=== PATIENT | female | born 1980 | race Caucasian/White ===

== ENCOUNTER 2018-06-19 23:31 | Emergency (ER) | payer MEDICAID ==
[~2018-06-19] VITALS: Ht 152.4 cm; Wt 108.9 kg
[~2018-06-19 23:31] MED LIST: ADV1DS IH; ALBU8.5H2 IH; BSP10T PO; CIPR-17 PO; CIPR5DRO EACH EAR; DIAZ5TAB3 PO; DICY10CA26 PO; ESTR0.5T PO; ESTR2TAB PO; ETHO250C6 PO; FLUO40CA PO; FLUO60TA PO; MELO-195 PO; METH500T PO; OFLO5DRO7 EACH EAR; OFLO5DRO7 RIGHT EAR; OMEP20TA2 PO; OXYC-309 PO; POTA99TA15 PO; PROP20TA5 PO; SUCR1TAB PO; SUMA100T2 PO; TOPI100T PO; TPR100T PO; TPR25T PO
--- OUTSIDE RECORDS SUMMARY | 2018-06-19 23:42 | XMS REPORT | Encounter Summary ---
Author Author [facility] Organization [facility] Address Unknown Phone Unavailable Care Team Providers Care Manager Pet Name Role Phone Norris Chavez MD Unavailable Robin Concepcion MD PCP Gurinder Antunez MD Unavailable Dwayne Davidson MD Unavailable Reason for Referral * Test (Routine) Referred By Contact Referred To Contact Status Reason Specialty Diagnoses / Procedures Merry Tellez APRN-SHIPPING RECEIVING CLERK [address] [place] [address] Abran Hong MD [address] [place] [address] No Auth Needed Neurology Diagnoses Radicular pain of lumbosacral region Left leg pain P rocedures SPINE EMG PROCEDURE Reason for Visit * Reason Comments Procedure EMG * Test (Routine) Referred By Contact Referred To Contact Status Reason Specialty Diagnoses / Procedures Merry Tellez APRN-NP [address] [place] [id number] Abran Hong MD [address] [place] [address] No Auth Needed Neurology Diagnoses Radicular pain of lumbosacral region Left leg pain P rocedures SPINE EMG PROCEDURE Encounter Details Care Team Description [place] [address] [place] [address] [phone] Spondylosis of lumbosacral region without myelopathy or radiculopathy; Radicular pain of lumbosacral region; Left leg pain 05/02/2018 Clinical [facility] Neurology [facility] [address] [address] [place] [address] Social History Date Tobacco Use Types Packs/Day Years Used Current Every Day Smoker Cigarettes 1 10 Smokeless Tobacco: Never Used Alcohol Use Drinks/Week oz/Week Comments Yes less than once a month Sex Assigned at Date Recorded Not on file Industry Job Start Date Occupation Not on file Not on file Not on file Travel End Travel History Travel Start No recent travel history available. as of this encounter Last Filed Vital Signs Time Taken Vital Sign Reading 05/02/2018 9:53 AM OBSTETRICS TECHNICIAN Blood Pressure 138/98 05/02/2018 9:53 AM OBSTETRICS TECHNICIAN Pulse 110 - Temperature - - Respiratory Rate - 05/02/2018 9:53 AM OBSTETRICS TECHNICIAN Oxygen Saturation 100% - Inhaled Oxygen - Concentration - Weight - 05/02/2018 9:53 AM OBSTETRICS TECHNICIAN Height 152.4 cm (5') - Body Mass Index - in this encounter Functional Status Date of Assessment Functional Status Response 04/10/2018 Does the patient have a hearing impairment: No 04/10/2018 Does the patient have a visual impairment: No 04/10/2018 Does the patient have impaired ambulation: No 04/10/2018 Does the patient have an activity of daily living No (ADL) impairment: 04/10/2018 Does the patient have an instrumental activity of No daily living (IADL) impairment: Date of Assessment Cognitive Status Response 04/10/2018 Does the patient have a cognitive impairment: No as of this encounter Progress Notes * Gigi Whitfield - 05/02/2018 10:00 AM OBSTETRICS TECHNICIAN Electromyography performed, see scanned results. ETRICS TECHNICIAN in this encounter Miscellaneous Notes * Addendum Note - Gigi Whitfield - 05/02/2018 10:00 AM OBSTETRICS TECHNICIAN Addended by: GIGI WHITFIELD on: 05/02/2018 01:45 PM Modules accepted: Orders ETRICS TECHNICIAN in this encounter Plan of Treatment Not on fileas of this encounter Procedures Comments Procedure Name Priority Date/Time Associated Diagnosis SPINE EMG PROCEDURE Routine 05/02/2018 Radicular pain of lumbosacral region Left leg pain in this encounter Visit Diagnoses Diagnosis Spondylosis of lumbosacral region without myelopathy or radiculopathy Lumbosacral spondylosis without myelopathy Radicular pain of lumbosacral region Thoracic or lumbosacral neuritis or radiculitis, unspecified Left leg pain Pain in limb in this encounter
--- OUTSIDE RECORDS SUMMARY | 2018-06-19 23:42 | XMS REPORT | Encounter Summary ---
Author Author [facility] Organization [facility] Address Unknown Phone Unavailable Care Team Providers Care Post Doctoral Researcher Name Role Phone Norris Chavez MD Unavailable Robin Concepcion MD PCP Gurinder Antunez MD Unavailable Dwayne Davidson MD Unavailable Reason for Referral * Pain Authorization (Routine) Referred By Contact Referred To Contact Status Reason Specialty Diagnoses / Procedures Gurinder Antunez MD [address] [facility] [address] [place] [address] Ic1 Pain Procedure [address] [place] [address] Denied Anesthesia Pain Diagnoses Spondylosis of lumbosacral region without myelopathy or radiculopathy DDD (degenerative disc disease), lumbar Myalgia, other site P rocedures DESTRUCTION OF NERVE W/ FLUORO LUMBAR/SACRAL Reason for Visit * Reason Comments Pain Pain Pain Encounter Details Care Team Description Date Type Department Gurinder Antunez MD [address] [facility] [address] [place], [place] [id number] Spondylosis of lumbosacral region without myelopathy or radiculopathy (Primary Dx); DDD (degenerative disc disease), lumbar; Myalgia, other site 05/17/2018 Office Visit Spine Center An[facility] Pain Clinic Alfred Lucas MD [facility] [address] [place], [place] [id number] Social History Date Tobacco Use Types Packs/Day [...] Vital Signs Time Taken Vital Sign Reading 05/17/2018 10:46 AM LIVESTOCK HAULIER Blood Pressure 133/97 05/17/2018 10:46 AM LIVESTOCK HAULIER Pulse 109 05/17/2018 10:15 AM LIVESTOCK HAULIER Temperature 36.7 C (98 F) 05/17/2018 10:15 AM LIVESTOCK HAULIER Respiratory Rate 22 05/17/2018 10:15 AM LIVESTOCK HAULIER Oxygen Saturation 98% - Inhaled Oxygen - Concentration 05/17/2018 10:15 AM LIVESTOCK HAULIER Weight 95.3 kg (210 lb) 05/17/2018 10:15 AM LIVESTOCK HAULIER Height 152.4 cm (5') 05/17/2018 10:15 AM LIVESTOCK HAULIER Body Mass Index 41.01 in this encounter Functional Status Date of [...] as of this encounter Progress Notes * Sayed, MD Gurinder - 05/17/2018 10:00 AM L[facility]STOCK [facility] CLINIC NOTE Subjective SUBJECTIVE: Jazzy Lopez presents for follow up of low back and leg pain Pain is in the low back with radiation to the left leg Had been isolated to left low back but now also on the right side She says the only thing that improves the pain is being put to sleep for surgery She does feel RFA has helped in the past Activity and movement make the pain worse She does not feel the amitriptyline is helping with either pain or sleep Review of Systems All other systems reviewed and are negative. Current Outpatient Medications: amitriptyline (ELAVIL) 10 mg tablet, Take two tablets by mouth at bedtime daily., Disp: 60 tablet, Rfl: 0 diazepam (VALIUM) 5 mg tablet, Take 5 mg by mouth as Needed. dizziness , Disp: , Rfl: diphenhydrAMINE (BENADRYL) 25 mg capsule, Take 25 mg by mouth every 6 hours as needed., Disp: , Rfl: duloxetine DR (CYMBALTA) 60 mg capsule, Take 60 mg by mouth daily., Disp: , Rfl: ethosuximide(+) (ZARONTIN) 250 mg capsule, Take 250 mg by mouth daily., Disp: , Rfl: FLUTICASONE/SALMETEROL (ADVAIR DISKUS IN), Inhale by mouth. Indications: ALSO HAS ADVAIR INHALER PRN, Disp: , Rfl: nortriptyline (PAMELOR) 25 mg capsule, Take one capsule by mouth at bedtime daily. Take 1 cap qhs x5d, then 2 cap qhs x5d, then 3 cap qhs thereafter , Disp: 90 capsule, Rfl: 1 Allergies Allergen Reactions Gabapentin DIZZINESS Reglan [Metoclopramide] SEE COMMENTS "lose complete control of arms, legs, head, and cannot speak" per pt Physical Exam Vitals: 05/17/18 1015 05/17/18 1046 BP: (!) 156/108 (!) 133/97 Pulse: 103 109 Resp: 22 Temp: 36.7 C (98 F) TempSrc: Oral SpO2: 98% Weight: 95.3 kg (210 lb) Height: 152.4 cm (60") Pain Score: Eight Body mass index is 41.01 kg/m. General: Alert, cooperative, no distress Head: Normocephalic, atraumatic Eyes: Conjunctivae/corneas clear Lungs: Unlabored respirations Heart: Normal rate by palpation of pulse Abdomen: Non-distended Skin: Warm and dry to touch Psychiatric: Mood and affect normal Musculoskeletal: Moves all extremities. Patient has tenderness to palpation in the lumbar facets at L3-L5. This pain is exacerbated with extension and lateral flexion bilaterally. Neurological: Grossly intact IMPRESSION: 1. Spondylosis of lumbosacral region without myelopathy or radiculopathy 2. DDD (degenerative disc disease), lumbar 3. Myalgia, other site PLAN: We will get her scheduled for a repeat RFA as this has helped her in the past. Will also trial nortriptyline and stop her amitriptyline. ATTESTATION I personally performed the angel portions of the E/M visit, discussed case with resident and concur with resident documentation of history, physical exam, assessment, and treatment plan unless otherwise noted. Staff name: Gurinder Antunez MD Date: 05/17/2018 [place] [place] in this encounter Plan of Treatment Order Schedule Name Priority Associated Diagnoses Expected: 05/17/2018, Expires: 08/15/2018 DESTRUCTION OF NERVE W/ FLUORO Routine Spondylosis of LUMBAR/SACRAL lumbosacral region without myelopathy or radiculopathy DDD (degenerative disc disease), lumbar Myalgia, other site as of this encounter Visit Diagnoses Diagnosis Spondylosis of lumbosacral region without myelopathy or radiculopathy - Primary Lumbosacral spondylosis without myelopathy DDD (degenerative disc disease), lumbar Degeneration of lumbar or lumbosacral intervertebral disc Myalgia, other site in this encounter
--- OUTSIDE RECORDS SUMMARY | 2018-06-19 23:42 | XMS REPORT | Clinical Summary ---
Author Author [facility] Organization [facility] Address Unknown Phone Unavailable Care Team Providers Care Cloud Systems Architect Name Role Phone Norris Chavez MD Unavailable Robin Concepcion MD PCP SayedGurinder MD Unavailable Dwayne Davidson MD Unavailable Source Comments Some departments are not documenting in the electronic medical record. If you do not see the information that you expected, contact Release of Information in the Health Information Management department at [phone] for further assistance in locating additional records.[facility] Allergies Comments Active Allergy Reactions Severity Noted Date Gabapentin DIZZINESS Low 08/04/2016 "lose complete control of arms, legs, head, and cannot speak" per pt Metoclopramide SEE COMMENTS Low 08/20/2014 Medications End Date Status Medication Sig Dispensed Refills Start Date Active diazepam (VALIUM) 5 mg Take 5 mg by 0 tablet mouth as Needed. dizziness Active FLUTICASONE/SALMETEROL Inhale by 0 (ADVAIR DISKUS mouth. IN)Indications: ALSO HAS Indications: ADVAIR INHALER PRN ALSO HAS ADVAIR INHALER PRN Active diphenhydrAMINE Take 25 mg by 0 (BENADRYL) 25 mg capsule mouth every 6 hours as needed. Active ethosuximide(+) Take 250 mg 0 (ZARONTIN) 250 mg capsule by mouth daily. Active duloxetine DR (CYMBALTA) Take 60 mg by 0 60 mg capsule mouth daily. Active amitriptyline (ELAVIL) 10 Take two 60 tablet 0 04/10/201 mg tabletIndications: tablets by 8 Neuropathic Pain mouth at bedtime daily. Active nortriptyline (PAMELOR) Take one 90 capsule 1 25 mg capsule capsule by 9 mouth at bedtime daily. Take 1 cap qhs x5d, then 2 cap qhs x5d, then 3 cap qhs thereafter Active Problems Problem Noted Date Spondylosis of lumbosacral region without myelopathy or radiculopathy 2016 Anal fissure 10/03/2012 Overview: Worsening of the rectal pain recently. Rectal bleeding 03/07/2012 Overview: New bleeding not associated with rectal pain. Abdominal pain 09/13/2011 Overview: Long standing, for "years", worse before BM. Not relieved by BM. Recently constipation has been controlled but this did not improve the pain. Location: left lower quadrant . History of multiple abdominal surgeries. History of diverticulitis in the past. GET 05/2011: mildly delayed. Colonoscopy and EGD 2011 in [facility]: normal. CT abd/pelvis 02/2012: thickining of the ascending colon. Hx of laparoscopic adhesiolysis with minimal improvement of pain. Hypogastric nerve block done by Dr Carrington 09/05/12 - complete resolution of abd pain. Anemia 09/13/2011 Overview: EGD 08/31/11 : normal. Small bowel capsule - normal. Celiac disease serology negative. Colonoscopy in [facility] 03/2012 : external hemorrhoids. Otherwise, normal and normal TI. EGD 03/2012: normal. bx neg for celiac ds. No h.pylori. Bx: david esophagitis Constipation 09/13/2011 Overview: Pt reports Improvement on miralax. Last colonoscopy in 03/2012: normal. Encounters Care Team Description Date Type Specialty Gurinder Antunez MD 06/18/2018 Orders Only Anesthesia Pain Gurinder Antunez MD Spondylosis of lumbosacral region without myelopathy or radiculopathy (Primary Dx); DDD (degenerative disc disease), lumbar; Myalgia, other site 05/17/2018 Office Visit Anesthesia Pain Abran Hong MD Spondylosis of lumbosacral region without myelopathy or radiculopathy; Radicular pain of lumbosacral region; Left leg pain 05/02/2018 Clinical Neurology Support Merry Tellez, CHEMISTRY TECHNICIAN-EMERGENCY MEDICINE SPECIALIST Radicular pain of lumbosacral region (Primary Dx) ; Left leg pain 04/10/2018 Office Visit Anesthesia Pain from Last 3 Months Family History Medical History Relation Name Comments Diabetes Maternal Grandfather Heart Disease Maternal Grandfather Diabetes Maternal Grandmother Heart Disease Maternal Grandmother Cancer-Colon Maternal Uncle Heart Disease Paternal Grandmother ADD/ADHD Son Bipolar Disorder Son Relation Name Status Comments Brother Brother Alive Father Alive Maternal Grandfather Alive Maternal Grandmother Maternal Uncle Mother Alive Paternal Grandmother Son Social History Date Tobacco Use Types Packs/Day Years Used Current Every Day Smoker Cigarettes 1 10 Smokeless Tobacco: Never Used Tobacco Cessation: Ready to Quit: Yes; Counseling Given: Yes Alcohol Use Drinks/Week oz/Week Comments Yes less than once a month Sex Assigned at Date Recorded Not on file Industry Job Start Date Occupation Not on file Not on file Not on file Travel End Travel History Travel Start No recent travel history available. Last Filed Vital Signs Time Taken Vital Sign Reading 05/17/2018 10:46 AM EQUIPMENT INSTALLER Blood Pressure 133/97 05/17/2018 10:46 AM EQUIPMENT INSTALLER Pulse 109 05/17/2018 10:15 AM EQUIPMENT INSTALLER Temperature 36.7 C (98 F) 05/17/2018 10:15 AM EQUIPMENT INSTALLER Respiratory Rate 22 05/17/2018 10:15 AM EQUIPMENT INSTALLER Oxygen Saturation 98% - Inhaled Oxygen - Concentration 05/17/2018 10:15 AM EQUIPMENT INSTALLER Weight 95.3 kg (210 lb) 05/17/2018 10:15 AM EQUIPMENT INSTALLER Height 152.4 cm (5') 05/17/2018 10:15 AM EQUIPMENT INSTALLER Body Mass Index 41.01 Plan of Treatment Health Maintenance Due Date Last Done Comments PHYSICAL (COMPREHENSIVE) 09/22/1986 EXAM HIV SCREENING 09/22/1994 DTAP/TDAP VACCINES ( - 09/22/1997 Tdap) CERVICAL CANCER SCREENING 09/22/2009 INFLUENZA VACCINE 12/13/2017 Procedures Comments Procedure Name Priority Date/Time Associated Diagnosis SPINE EMG PROCEDURE Routine 05/02/2018 Radicular pain of lumbosacral region Left leg pain from Last 3 Months Results * SPINE EMG PROCEDURE (05/02/2018) Narrative Performed At Performing Organization Address City/State/[facility] Phone Number IN CLINIC from Last 3 Months Insurance Payer Benefit Subscriber ID Type Phone Address Plan / Group [employer] [place] [employer] xxxxxxxxxxx Medicaid [employer] Advance Directives Patient has advance care planning documents on file. For more information, please contact: [facility] [address] [place] [address]
--- OUTSIDE RECORDS SUMMARY | 2018-06-19 23:42 | XMS REPORT | Encounter Summary ---
Author Author [facility] Organization [facility] Address Unknown Phone Unavailable Care Team Providers Care Meat Selector Name Role Phone Norris Chavez MD Unavailable Robin Concepcion MD PCP Gurinder Antunez MD Unavailable Dwayne Davidson MD Unavailable Encounter Details Care Team Description Date Type Department Gurinder Antunez MD [address] [place], [place] [id number] 06/18/2018 Orders Only Spine Center An[facility] Pain Clinic Alfred Lucas MD [facility] [address] [place], [place] [id number] Social History Date Tobacco Use Types Packs/Day [...] travel history available. as of this encounter Functional Status Date of Assessment [...] as of this encounter Progress Notes * Guera Chandler RN - 06/18/2018 3:19 PM DEFENSIVE LINE COACH Patient is scheduled 06/20/[address] Antunez. Just received a call from Modesta @ [employer] and she states after behavioral medical director review this procedure has been denied due to patient having received same procedure in the past without significant pain relief. She is working on finalizing the official denial letter now to fax over, so I will send that your way Guera once I receive it as its probably more detailed. Modesta went ahead in the meantime and provided me with the info for P2P and appeal. P2P and appeal options are both available by calling [phone] to initiate. CASE # [id number] if needed Please let me know how you choose to proceed so I can notate account and like I said as soon as I receive that denial letter I will send it your way! Procedure is BL L4-5 RFA. NO p2p because patient didn't get pain relief. Patient will continue to look for ways to help her pain. She will continue to take nortriptyline and follow up in clinic. NSIVE LINE COACH in this encounter Plan of Treatment Not on fileas of this encounter Visit Diagnoses Not on filein this encounter
--- OUTSIDE RECORDS SUMMARY | 2018-06-19 23:43 | XMS REPORT | Clinical Summary ---
Author Author [facility] Organization 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 Overview: ICD-10 conversion Social History Tobacco Use Types Packs/Day Years Used Date Never Assessed Sex Assigned at Date Recorded Not on file Last Filed Vital Signs Vital Sign Reading Time Taken Blood Pressure 142/72 08/27/2013 9:46 AM CDT Pulse 109 08/27/2013 9:46 AM CDT Temperature 36.6 C (97.8 F) 08/27/2013 9:46 AM CDT Respiratory Rate - - Oxygen Saturation - - Inhaled Oxygen - - Concentration Weight 97.5 kg (215 lb) 08/27/2013 9:46 AM CDT Height 157.5 cm (5' 2") 08/27/2013 9:46 AM CDT Body Mass Index 39.32 08/27/2013 9:46 AM CDT Plan of Treatment Not on file Results Not on filefrom Last 3 Months
--- OUTSIDE RECORDS SUMMARY | 2018-06-19 23:43 | XMS REPORT | Encounter Summary ---
Author Author [facility] Organization [facility] Address Unknown Phone Unavailable Care Team Providers Care Dredge Deckhand Name Role Phone Norris Chavez MD Unavailable Robin Concepcion MD PCP Gurinder Antunez MD Unavailable Dwayne Davidson MD Unavailable Reason for Referral * Test (Routine) Referred By Contact Referred To Contact Status Reason Specialty Diagnoses / Procedures Merry Tellez APRN-DEVELOPER [employer] [address] [place] [address] [place] [id number] [place] [address] No Auth Needed Neurology Diagnoses Radicular pain of lumbosacral region Left leg pain P rocedures SPINE EMG PROCEDURE Reason for Visit * Reason Comments Other 4 wk fuv Pain Pain Encounter Details Care Team Description Date Type Department Merry Tellez APRN-AMPARO [address] [place], [place] [id number] Radicular pain of lumbosacral region (Primary Dx); Left leg pain 04/10/2018 Office Visit [facility] [address] [facility] [address] [place] [address] Social History Date Tobacco Use Types Packs/Day [...] Vital Signs Time Taken Vital Sign Reading - Blood Pressure - - Pulse - - Temperature - - Respiratory Rate - - Oxygen Saturation - - Inhaled Oxygen - Concentration 04/10/2018 10:01 AM SULFURIC ACID PLANT OPERATOR Weight 95.5 kg (210 lb 9.6 oz) 04/10/2018 10:01 AM SULFURIC ACID PLANT OPERATOR Height 152.4 cm (5') 04/10/2018 10:01 AM SULFURIC ACID PLANT OPERATOR Body Mass Index 41.13 in this encounter Functional Status Date of [...] cognitive impairment: No as of this encounter Patient Instructions * Patient Instructions* Merry Tellez APRN-NP - 04/10/2018 10:00 AM SULFURIC ACID PLANT OPERATOR Increase Amitriptyline to 20mg at bedtime Obtain EMG of your left leg and follow up with Dr Antunez to review those results and discuss other possible options URIC ACID PLANT OPERATOR in this encounter Progress Notes * Merry Tellez APRN-NP - 04/10/2018 10:00 AM SULFURIC ACID PLANT OPERATOR [facility] CLINIC NOTE Subjective SUBJECTIVE: 4w FUV for low back and LLE pain Low back and LLE pain are about equal in severity Tolerating the Amitriptyline without side effects Started Amitriptyline 10mg qHS since last visit Initially made her tired for about a week but that has resolved She was sleeping throughout the night the first week. Since has been waking up 1-4 times a night due to inability to sleep, pain or coughing (known diagnosis of COPD) Has not noticed relief from amitriptyline 10mg qHS Smoking 1.5 pack to 1 pack of cigarettes per day Weakness, Numbness & tingling from left buttock down left lateral leg to foot Numbness varies in severity Numbness and tingling are intermittent Increased frequency of LLE tingling over the last few weeks Denies loss of bowel/bladder control Colonoscopy last Monday (04/04/18). Per pt, results were normal. Volatren gel no longer providing relief of low back and leg pain therefore stopped Stopped lyrica several months back due to lack of insurance coverage. Reported it helped some. Ibuprofen and mobic do not help with her back and LLE pain Steroid injections and MBBs/RFA have not provided relief in the past SCS trial/implant not approved by insurance Has not had EMG Established with Psychologist, Dr Be in [place] Review of Systems Constitutional: Positive for fatigue and unexpected weight change. HENT: Positive for ear pain. Eyes: Negative. Respiratory: Positive for cough, chest tightness and shortness of breath. Cardiovascular: Positive for chest pain. Gastrointestinal: Negative. Endocrine: Negative. Genitourinary: Negative. Musculoskeletal: Positive for arthralgias, back pain and neck pain. Skin: Negative. Allergic/Immunologic: Negative. Neurological: Positive for weakness, numbness and headaches. Hematological: Negative. Psychiatric/Behavioral: Positive for sleep disturbance. Current Outpatient Prescriptions: amitriptyline (ELAVIL) 10 mg tablet, Take two [...] HAS ADVAIR INHALER PRN, Disp: , Rfl: Allergies Allergen Reactions Gabapentin DIZZINESS Reglan [Metoclopramide] SEE COMMENTS "lose complete control of arms, legs, head, and cannot speak" per pt Physical Exam Vitals: 04/10/18 1001 BP: (P) 101/66 Pulse: (P) 86 Resp: (P) 22 SpO2: (P) 98% Weight: 95.5 kg (210 lb 9.6 oz) Height: 152.4 cm (60") Oswestry Total Score:: 56 Pain Score: Seven Body mass index is 41.13 kg/m. General: Alert, cooperative, no distress Head: Normocephalic, without obvious abnormality, atraumatic Eyes: Conjunctivae/corneas clear Lungs: Respirations regular and unlabored Heart: Normal rate Abdomen: Non-distended Extremities: Normal, atraumatic Skin: No obvious rashes or lesions Neurologic: Grossly normal. Slow steady gait without use of assistive devices. Normal equal sensation of BLLE except for numbness and tingling noted of left lateral ankle and web of 1st and 2nd toe on the top of the left foot. 5/5 strength bilaterally to hip flexion, knee flexion/extension, ankle DF/PF. Psychiatric: Mood and affect normal Back/Spine: No obvious deformity. L-spine & BL lumbar paraspinal TTP. BL low back soft tissue tender upon light palpation. IMPRESSION: 1. Radicular pain of lumbosacral region 2. Left leg pain PLAN: 5lb weight gain according to actual weight today compared to reported weight at last visit Continue to closely monitor weight Smoking cessation encouraged. Benefits of cessation and risks of continuation discussed. Low back and LLE pain with reported weakness, numbness and tingling are persistent despite rest, physical therapy, NSAIDs, Voltaren gel, gabapentin, cymbalta, lumbar steroid injections, Lumbar MBB/RFA Not a surgical candidate and SCS not covered by insurance MRI L-spine - 09/22/17 Pelvis xray - 11/2016 WNL Obtain LLE EMG Increase Amitriptyline from 10mg qHS to 20mg qHS May continue tylenol prn. Not to exceed 3 grams daily. Continue to follow with Psychologist, Dr Be in [facility] at earliest convenience w/ Sayed for EMG results & to discuss other possible treatment options URIC ACID PLANT OPERATOR in this encounter Plan of Treatment Not on fileas of this encounter Visit Diagnoses Diagnosis Radicular pain of lumbosacral region - Primary Thoracic or lumbosacral neuritis or radiculitis, unspecified Left leg pain Pain in limb in this encounter
--- OUTSIDE RECORDS SUMMARY | 2018-06-19 23:43 | XMS REPORT | Continuity of Care Document ---
Author Author [facility] Organization [facility] Address Unknown Phone Unavailable Allergies Active Description Code Type Severity Reaction Onset Reported/Identified Relationship to Patient Clinical Status Yes metoclopramide [id number] Drug Allergy Unknown "CAUSES PT TO L 11/12/2013 Medications There is no data. Problems Date Dx Coded Attending Type Code Diagnosis Diagnosed By 04/26/2013 BIA JIMENEZ MD Ot 382.9 OTITIS MEDIA NOS 11/21/2013 BIA JIMENEZ MD Ot 381.10 CHR SEROUS OM SIMP/NOS 11/21/2013 BIA JIMENEZ MD Ot V74.8 SCREEN-BACTERIAL DIS NEC 04/12/2016 BIA JIMENEZ MD Ot 381.10 CHR SEROUS OM SIMP/NOS 04/12/2016 BIA JIMENEZ MD Ot V72.84 EXAM PRE-OPERATIVE NOS 04/12/2016 BIA JIMENEZ MD Ot V72.84 EXAM PRE-OPERATIVE NOS 04/12/2016 BIA JIMENEZ MD Ot H65.23 CHRONIC SEROUS OTITIS MEDIA, BILATERAL 04/12/2016 BIA JIMENEZ MD Ot Z01.818 ENCOUNTER FOR OTHER PREPROCEDURAL EXAMIN 04/13/2016 BIA JIMENEZ MD Ot H65.23 CHRONIC SEROUS OTITIS MEDIA, BILATERAL 04/13/2016 BIA JIMENEZ MD Ot Z01.818 ENCOUNTER FOR OTHER PREPROCEDURAL EXAMIN 04/14/2016 BIA JIMENEZ MD Ot 381.10 CHR SEROUS OM SIMP/NOS 04/14/2016 BIA JIMENEZ MD Ot V72.84 EXAM PRE-OPERATIVE NOS 04/14/2016 BIA JIMENEZ MD Ot V72.84 EXAM PRE-OPERATIVE NOS 04/14/2016 BIA JIMENEZ MD Ot 381.10 CHR SEROUS OM SIMP/NOS 04/14/2016 BIA JIMENEZ MD Ot V72.84 EXAM PRE-OPERATIVE NOS 04/14/2016 BIA JIMENEZ MD Ot V72.84 EXAM PRE-OPERATIVE NOS 04/14/2016 BIA JIMENEZ MD Ot H65.21 CHRONIC SEROUS OTITIS MEDIA, RIGHT EAR 04/18/2016 BIA JIMENEZ MD Ot H65.21 CHRONIC SEROUS OTITIS MEDIA, RIGHT EAR 04/20/2016 BIA JIMENEZ MD Ot H65.21 CHRONIC SEROUS OTITIS MEDIA, RIGHT EAR 06/19/2018 BIA JIMENEZ MD Ot 381.10 CHR SEROUS OM SIMP/NOS 06/19/2018 BIA JIMENEZ MD Ot V72.84 EXAM PRE-OPERATIVE NOS 06/19/2018 BIA JIMENEZ MD Ot V72.84 EXAM PRE-OPERATIVE NOS Procedures There is no data. Results Test Result Range Methicillin resistant Staphylococcus aureus (MRSA) screening culture - 06:45 Methicillin resistant Staphylococcus aureus (MRSA) screening culture NEG NRG Encounters ACCT No. Visit Date/Time Discharge Status Pt. Type Provider Facility Loc./Unit Complaint [id number] 04/14/2016 06:34:00 04/14/2016 10:40:00 DIS Outpatient BIA JIMENEZ MD [facility] SDC OTITIS MEDIA [id number] 04/12/2016 05:39:00 04/12/2016 09:48:00 DIS Outpatient BIA JIMENEZ MD [facility] PREOP OTITIS MEDIA [id number] 11/21/2013 07:57:00 11/21/2013 11:03:00 DIS Outpatient BIA JIMENEZ MD [facility] RIGHT OTITIS MEDIA [id number] 11/12/2013 07:20:00 11/12/2013 23:59:59 CLS Outpatient BIA JIMENEZ MD [facility] PREOP RIGHT OTITIS MEDIA [id number] 04/26/2013 05:39:00 04/26/2013 10:10:00 DIS Outpatient BIA JIMENEZ MD [facility] SDC OTITIS MEDIA [id number] 04/22/2013 14:24:00 04/22/2013 23:59:59 CLS Outpatient BIA JIMENEZ MD [facility] PREOP OTITIS MEDIA [id number] 06/19/2018 23:33:00 ACT Emergency ROMY VENEGAS, MONICA Miguel [facility] ER NECK,EAR PAIN [id number] 04/22/2013 14:57:43 ACT Document Registration
[2018-06-20] MEDS ORDERED: ORPHENADRINE 60 MG/2 ML (NORFLEX) AMP IM ONE ×2 (01:15)
--- NOTE | 2018-06-20 01:18 | ED Neck-Back Pain/Injury ---
General Chief Complaint: Head/Cervical Problems Stated Complaint: NECK,EAR PAIN Source of Information: Patient Exam Limitations: No Limitations History of Present Illness Date Seen by Provider: Jun 20, 2018 Time Seen by Provider: 00:58 Initial Comments This 37-year-old woman presents to the emergency room with complaints of pain in the right neck that radiates up to the right ear. It had been mild initially but then became severe at 19:00. She reports having a similar pain last month and was eventually diagnosed with bilateral ear infections. She completed the antibiotics 2 or 3 days ago and pain seemed to rebound after that. She has bilateral myringotomy tubes. Patient has no teeth to cause the pain. She has tenderness in the musculature of the right neck. She hollers and flinches when even the skin is slightly touched. No rashes are evident. Patient's primary care providers Dr. Cam but she states she now has no local provider due to the current changes with the medical climate in [place]. Review of patient's chart and K tracks reveals 30 controlled prescriptions filled in the last year. Allergies and Home Medications Allergies Coded Allergies: gabapentin (Verified Allergy, Unknown, 06/20/18) metoclopramide (Unverified Allergy, Unknown, "CAUSES PT TO LOSE CONTROL OF MUSCLES", 11/12/13) Home Medications Albuterol 8.5 Gm Hfa.aer.ad, 2 PUFF IH Q6H PRN for SHORTNESS OF BREATH, ( Reported) PRN SHORTNESS OF BREATH Ciprofloxacin HCl 5 Ml Drops, 3 DROPS EACH EAR BID Prescribed by: GAL FLYNN on 04/14/16 0950 Cyclobenzaprine HCl 10 Mg Tablet, 10 MG PO TID PRN for SPASMS Prescribed by: MONICA LLOYD on 06/20/18 012 Diazepam 5 Mg Tablet, 5 MG PO Q6H PRN for ANXIETY, (Reported) PRN ANXIETY Ethosuximide 250 Mg Capsule, 250 MG PO HS, (Reported) Fluticasone/Salmeterol 250 Mcg/50 Mcg Inh, 1 SPRAY IH BID, (Reported) Prednisone 20 Mg Tab, 1 TAB PO DAILY Prescribed by: MONICA LLOYD on 06/20/18 012 Patient Home Medication List Home Medication List Reviewed: Yes Review of Systems Constitutional: no symptoms reported EENTM: see HPI Respiratory: no symptoms reported Cardiovascular: no symptoms reported Gastrointestinal: no symptoms reported Genitourinary: no symptoms reported : No Musculoskeletal: see HPI Skin: no symptoms reported Psychiatric/Neurological: No Symptoms Reported Past Czotnzu-Mixvbi-Btaxzb Hx Past Med/Social Hx: Reviewed and Corrections made Patient Social History Type Used: Cigarettes Recent Foreign Travel: No Contact w/Someone Who Travel: No Recent Hopitalizations: No Immunizations Up To Date Tetanus Booster (TDap): Unknown Seasonal Allergies Seasonal Allergies: No Past Medical History Surgeries: Yes (dental extractions) Hysterectomy, 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 Respiratory: Yes Asthma, COPD Cardiac: Yes Heart Murmur Neurological: Yes Headaches /Migraines : No 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 Disorders: Yes Female 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 Disorders: 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 0.0oz. 79.730605xl; 34.2 BMI Method: General Appearance: No Apparent Distress, WD/WN HEENT: PERRL/EOMI, TMs Normal (TM tubes in place bilaterally), Normal ENT Inspection Neck: Normal Inspection, Tender Lateral (right paraspinous muscles) Cardiovascular: Regular Rate, Rhythm, No Edema, No Murmur Respiratory: Lungs Clear, Normal Breath Sounds, No Accessory Muscle Use, No Respiratory Distress Back: Normal Inspection, Other (tenderness in the paraspinous muscles of the right neck extending down into the trapezius muscles) Extremity: Normal Inspection, No Pedal Edema Neurologic/Psychiatric: Alert, Oriented x3, No Motor/Sensory Deficits, Normal Mood/Affect, die out worker II-XII Norm as Tested Skin: Normal Color, Warm/Dry; No Rash Progress/Results/Core Measures Results/Orders My Orders Orders - MONICA STANTON MD Orphenadrine Injection (Norflex Injectio (06/20/18 01:15) Orphenadrine Injection (Norflex Injectio (2/6/19 01:15) Ketorolac Injection (Toradol Injection) (06/20/18 01:30) Medications Given in ED Current Medications Medications Dose Ordered Sig/Brissa Route Start Time Stop Time Status Last Admin Dose Admin Ketorolac Tromethamine 30 mg ONCE ONCE IM 06/20/18 01:30 06/20/18 01:31 DC 06/20/18 01:47 30 MG Orphenadrine Citrate 60 mg ONCE ONCE IM 06/20/18 01:15 06/20/18 01:16 DC 06/20/18 01:47 60 MG Vital Signs/I&O 06/20/18 06/20/18 00:49 02:08 Temp 97.7 97.7 Pulse 109 100 Resp 17 17 B/P (MAP) 140/89 (106) 125/77 (93) Pulse Ox 100 Progress Progress Note : Progress Note Patient was given Toradol and Norflex injections. She asserted that these probably would not work. Prescriptions were provided for a brief round of prednisone and cyclobenzaprine. Departure Impression Primary Impression: Strain of neck muscle Qualified Codes: S16.1XXA - Strain of muscle, fascia and tendon at neck level , initial encounter Additional Impression: Muscle strain of upper back Disposition: HOME, SELF-CARE Condition: Stable Departure-Patient Inst. Decision time for Depature: 01:10 Referrals: BRENNAN CAM MD (PCP/Family) Primary Care Physician Patient Instructions: Cervical Muscle Strain (DC) Add. Discharge Instructions: You may take 400-600 mg of ibuprofen up to every 6 hours as needed for pain. You may also take Tylenol (acetaminophen) up to 1000 mg every 6 hours. Drink plenty of clear liquids to stay well-hydrated. Work toward quitting smoking. Gentle heat and gentle stretching of the involved muscles should help relax the tension. Follow-up with a primary care provider as soon as possible. Return to care if you have worsening of symptoms despite these measures. All discharge instructions reviewed with patient and/or family. Voiced understanding. Scripts Cyclobenzaprine HCl (Cyclobenzaprine HCl) 10 Mg Tablet 10 MG PO TID PRN for SPASMS, #10 TAB Prov: MONICA STANTON MD 06/20/18 Prednisone (Prednisone) 20 Mg Tab 1 TAB PO DAILY, #3 TAB Prov: MONICA STANTON MD 06/20/18 MONICA STANTON MD Jun 20, 2018 01:18
[2018-06-20] MEDS ORDERED: PRD20T PO (01:24)
[2018-06-20] MEDS ORDERED: CYCL10TA9 PO (01:24)
[2018-06-20] MEDS ORDERED: KETOROLAC 30 MG/ML VIAL IM ONE (01:30)
[2018-06-20 02:08] VITALS: BP 125/77
== END 2018-06-20 02:10 | disposition home or self-care (01) ==
LOC: EDUNIT# 23:31 → ER 23:33
DX: S16.1XXA Strain of muscle, fascia and tendon at neck level, initial encounter (principal); S23.3XXA Sprain of ligaments of thoracic spine, initial encounter; J44.9 Chronic obstructive pulmonary disease, unspecified; G43.909 Migraine, unspecified, not intractable, without status migrainosus; M41.9 Scoliosis, unspecified; F41.9 Anxiety disorder, unspecified; Q05.9 Spina bifida, unspecified; F32.9 Major depressive disorder, single episode, unspecified; Z87.448 Personal history of other diseases of urinary system; Z79.52 Long term (current) use of systemic steroids; Z79.51 Long term (current) use of inhaled steroids; Z88.8 Allergy status to other drugs, medicaments and biological substances; Z96.22 Myringotomy tube(s) status; Z90.710 Acquired absence of both cervix and uterus; Z98.51 Tubal ligation status; X58.XXXA Exposure to other specified factors, initial encounter
CPT/HCPCS: 99284

== ENCOUNTER 2018-08-19 19:42 | Emergency (ER) | payer MEDICAID ==
[~2018-08-19] VITALS: Ht 152.4 cm; Wt 106.6 kg
[~2018-08-19 19:42] MED LIST changes: +CYCL10TA9 PO; +PRD20T PO
--- OUTSIDE RECORDS SUMMARY | 2018-08-19 19:49 | XMS REPORT | Encounter Summary ---
Author Author [facility] Organization [facility] Address Unknown Phone Unavailable Care Team Providers Care Director Of Teaching And Learning Name Role Phone Norris Chavez MD Unavailable Robin Concepcion MD PCP Gurinder Antunez MD Unavailable Dwayne Davidson MD Unavailable Encounter Details Care Team Description Date Type Department Gurinder Antunez MD [address] [place], [place] [id number] 06/18/[address] [facility] [address] [id number] Social History Date Tobacco Use Types Packs/Day [...] Travel Start No recent travel history available. documented as of this encounter Functional Status Date [...] the patient have a cognitive impairment: No documented as of this encounter Progress Notes * Guera Chandler RN - 06/18/2018 3:19 PM PRINCIPAL EMBEDDED SOFTWARE ENGINEER Patient is scheduled 06/20/[address] Antunez. Just received a call from Modesta @ [employer] and she states after medical facilities section director review this procedure has been denied [...] appeal options are both available by calling [phone] to initiate. CASE # [id number] if needed Please let me know how [...] take nortriptyline and follow up in clinic. CIPAL EMBEDDED SOFTWARE ENGINEER documented in this encounter Plan of Treatment Not on filedocumented as of this encounter Visit Diagnoses Not on filedocumented in this encounter
--- OUTSIDE RECORDS SUMMARY | 2018-08-19 19:49 | XMS REPORT | Clinical Summary ---
Author Author [facility] Organization [facility] Address Unknown Phone Unavailable Care Team Providers Care Wireline Operator Name Role Phone PCP Unavailable Allergies Not [...]
--- OUTSIDE RECORDS SUMMARY | 2018-08-19 19:49 | XMS REPORT | Continuity of Care Document ---
Author Organization Unknown Address Unknown Allergies Active Description Code Type Severity Reaction Onset Reported/Identified Relationship to Patient Clinical Status Yes metoclopramide [id number] Drug Allergy Unknown "CAUSES PT TO L 11/12/2013 Yes gabapentin [id number] Drug Allergy Unknown N/A 06/20/2018 Medications There is no data. Problems Date [...] JIMENEZ MD Ot V72.84 EXAM PRE-OPERATIVE NOS 06/20/2018 ROMY VENEGAS, MONICA Miguel Ot F32.9 MAJOR DEPRESSIVE DISORDER, SINGLE EPISOD 06/20/2018 MONICA STANTON MD, Ot F41.9 ANXIETY DISORDER, UNSPECIFIED 06/20/2018 MONICA STANTON MD, Ot G43.909 MIGRAINE, UNSP, NOT INTRACTABLE, WITHOUT 06/20/2018 MONICA STANTON MD Ot J44.9 CHRONIC OBSTRUCTIVE PULMONARY DISEASE, U 06/20/2018 MONICA STANTON MD, Ot M41.9 SCOLIOSIS, UNSPECIFIED 06/20/2018 MONICA STANTON MD, Ot M54.2 CERVICALGIA 06/20/2018 MONICA STANTON MD, Ot Q05.9 SPINA BIFIDA, UNSPECIFIED 06/20/2018 MONICA STANTON MD, Ot S16.1XXA STRAIN OF MUSCLE, FASCIA AND TENDON AT N 06/20/2018 MONICA STANTON MD, Ot S23.3XXA SPRAIN OF LIGAMENTS OF THORACIC SPINE, I 06/20/2018 MONICA STANTON MD, Ot X58.XXXA EXPOSURE TO OTHER SPECIFIED FACTORS, INI 06/20/2018 MONICA STANTON MD, Ot Z79.51 GROUP HOME (CURRENT) USE OF INHALED STERO 06/20/2018 MONICA STANTON MD, Ot Z79.52 GLUE BONE CRUSHER (CURRENT) USE OF SYSTEMIC STER 06/20/2018 MONICA STANTON MD, Ot Z87.448 PERSONAL HISTORY OF OTHER DISEASES OF UR 06/20/2018 MONICA STANTON MD, Ot Z88.8 ALLERGY STATUS TO OTH DRUG/MEDS/BIOL SUB 06/20/2018 MONICA STANTON MD, Ot Z90.710 ACQUIRED ABSENCE OF BOTH CERVIX AND UTER 06/20/2018 MONICA STANTON MD, Ot Z96.22 MYRINGOTOMY TUBE(S) STATUS 06/20/2018 MONICA STANTON MD, Ot Z98.51 TUBAL LIGATION STATUS 06/21/2018 MONICA STANTON MD, Ot F32.9 MAJOR DEPRESSIVE DISORDER, SINGLE EPISOD 06/21/2018 MONICA STANTON MD, Ot F41.9 ANXIETY DISORDER, UNSPECIFIED 06/21/2018 MONICA STANTON MD, Ot G43.909 MIGRAINE, UNSP, NOT INTRACTABLE, WITHOUT 06/21/2018 MONICA STANTON MD, Ot J44.9 CHRONIC OBSTRUCTIVE PULMONARY DISEASE, U 06/21/2018 MONICA STANTON MD, Ot M41.9 SCOLIOSIS, UNSPECIFIED 06/21/2018 MONICA STANTON MD, Ot M54.2 CERVICALGIA 06/21/2018 MONICA STANTON MD, Ot Q05.9 SPINA BIFIDA, UNSPECIFIED 06/21/2018 MONICA STANTON MD, Ot S16.1XXA STRAIN OF MUSCLE, FASCIA AND TENDON AT N 06/21/2018 MONICA STANTON MD, Ot S23.3XXA SPRAIN OF LIGAMENTS OF THORACIC SPINE, I 06/21/2018 MONICA STANTON MD, Ot X58.XXXA EXPOSURE TO OTHER SPECIFIED FACTORS, INI 06/21/2018 MONICA STANTON MD, Ot Z79.51 GROUP HOME (CURRENT) USE OF INHALED STERO 06/21/2018 MONICA STANTON MD, Ot Z79.52 GLUE BONE CRUSHER (CURRENT) USE OF SYSTEMIC STER 06/21/2018 MONICA STANTON MD, Ot Z87.448 PERSONAL HISTORY OF OTHER DISEASES OF UR 06/21/2018 MONICA STANTON MD, Ot Z88.8 ALLERGY STATUS TO OT DRUG/MEDS/BIOL SUB 06/21/2018 MONICA STANTON MD, Ot Z90.710 ACQUIRED ABSENCE OF BOTH CERVIX AND UTER 06/21/2018 ROMY VENEGAS, MONICA Miguel Ot Z96.22 MYRINGOTOMY TUBE(S) STATUS 06/21/2018 MONICA STANTON MD Ot Z98.51 TUBAL LIGATION STATUS Procedures There is no data. Results Test Result Range Methicillin resistant Staphylococcus aureus (MRSA) screening culture - 06:45 Methicillin resistant Staphylococcus aureus (MRSA) screening culture NEG NRG Encounters ACCT No. Visit Date/Time Discharge Status Pt. Type Provider Facility Loc./Unit Complaint [id number] 06/19/2018 23:33:00 06/20/2018 02:10:00 DIS Emergency MONICA STANTON MD [facility] ER NECK,EAR PAIN [id number] 04/14/2016 06:34:00 04/14/2016 10:40:00 DIS Outpatient BIA JIMENEZ MD [facility] OTITIS MEDIA [id number] 04/12/2016 05:39:00 04/12/2016 09:48:00 DIS Outpatient BIA JIMENEZ MD [facility] PREOP OTITIS MEDIA [id number] 11/21/2013 07:57:00 11/21/2013 11:03:00 DIS Outpatient BIA JIMENEZ MD [facility] RIGHT OTITIS MEDIA [id number] 11/12/2013 07:20:00 11/12/2013 23:59:59 CLS Outpatient BIA JIMENEZ MD [facility] PREOP RIGHT OTITIS MEDIA [id number] 04/26/2013 05:39:00 04/26/2013 10:10:00 DIS Outpatient BIA JIMENEZ MD [facility] OTITIS MEDIA [id number] 04/22/2013 14:24:00 04/22/2013 23:59:59 CLS Outpatient BIA JIMENEZ MD [facility] PREOP OTITIS MEDIA [id number] 08/19/2018 19:45:00 ACT Emergency LEIGH ANGEL MD [facility] ER FS ABDOMINAL PAIN [id number] 08/07/2018 10:20:00 08/07/2018 23:59:59 CLS Outpatient [id number] 04/22/2013 14:57:43 ACT Document Registration
--- OUTSIDE RECORDS SUMMARY | 2018-08-19 19:49 | XMS REPORT ---
Author Author JAVAD AMBRIZ Organization [facility] Address [address] [place] [address] Care Team Providers Care Accounts Administrator Name Role Phone JAVAD AMBRIZ Unavailable PROBLEMS Unknown Problems ALLERGIES Substance Reaction Event Type Date Status Reglan "Look like stroke victim" Drug Allergy Jun, Active Gabapentin dizzy Drug Allergy Jun, Active ENCOUNTERS Encounter Location Date Diagnosis [facility] [address] [place] [address] Jun, BMI 40.0-44.9, adult Z68.41 and Acute non-recurrent maxillary sinusitis J01.00 IMMUNIZATIONS No Known Immunizations SOCIAL HISTORY Never Assessed REASON FOR VISIT Ear Pain-Bilat, Eye Painful/Swollen- Left PLAN OF CARE Activity Details Follow Up prn Reason: VITAL SIGNS Height 5ft in 2018-06-28 Weight 227lb lbs 2018-06-28 BMI 44.33 kg/m2 2018-06-28 Blood pressure systolic 126 mmHg 2018-06-28 Blood pressure diastolic 70 mmHg 2018-06-28 MEDICATIONS Medication Instructions Dosage Frequency Start Date End Date Duration Status Advair Diskus 100-50 MCG/DOSE Inhalation Twice a day 1 puff 12h Active Albuterol Sulfate HFA 108 (90 Base) MCG/ACT Inhalation every 6 hrs 2 puffs as needed 6h Active Ethosuximide 250 MG Orally Twice a day 1 capsule with food or milk 12h 30 day(s) Active Cymbalta 60 MG Orally Once a day 1 capsule 24h 30 day(s) Active Diazepam 5 MG Orally every 4-6 hours as needed 1 tablet as needed Active Augmentin 875-125 MG Orally every 12 hrs 1 tablet 12h Jun, 10 day(s) Active PredniSONE 10 MG Orally Once a day 1 tablet 24h Jun, 6 days Active RESULTS No Results PROCEDURES No Known procedures INSTRUCTIONS MEDICATIONS ADMINISTERED No Known Medications MEDICAL (GENERAL) HISTORY Type Description Date Medical History Depression Medical History Anxiety Medical History 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 Medical History COPD (chronic obstructive pulmonary disease) Medical History Asthma Medical History Scoliosis Medical History Arthritis Medical History Degenerative disc disease, lumbar Medical History Epilepsy Surgical History Hysterectomy 2007 Surgical History Colonoscopy 2017 Surgical History Lap Sherrill Surgical History Surgery to face, removal of tumor Hospitalization History Surgeries
--- OUTSIDE RECORDS SUMMARY | 2018-08-19 19:49 | XMS REPORT | Clinical Summary ---
Author Author [facility] Organization [facility] Address Unknown Phone Unavailable Care Team Providers Care Alternative Dispute Resolution Mediator Name Role Phone Norris Chavez MD Unavailable Robin Concepcion MD PCP SayedGurinder MD Unavailable Dwayne Davidson MD Unavailable Source Comments Some departments are not documenting in the electronic medical record. If you do not see the information that you expected, contact Release of Information in the Health Information Management department at [phone] for further assistance in locating additional records.[facility] Allergies Comments Active Allergy Reactions [...] at bedtime daily. Active nortriptyline (PAMELOR) Take three 90 capsule 1 25 mg capsule capsules by 9 mouth at bedtime daily. Active Problems Problem Noted Date Spondylosis of [...] mildly delayed. Colonoscopy and EGD 2011 in [facility]: normal. CT abd/pelvis 02/2012: thickining of the ascending colon. Hx of laparoscopic adhesiolysis with minimal improvement of pain. Hypogastric nerve block done by Dr Carrington 09/05/12 - complete resolution of abd pain. Anemia 09/13/2011 Overview: EGD 08/31/11 : normal. Small bowel capsule - normal. Celiac disease serology negative. Colonoscopy in [facility] 03/2012 : external hemorrhoids. Otherwise, normal and normal TI. EGD 03/2012: normal. bx neg for celiac ds. No h.pylori. Bx: david esophagitis Constipation 09/13/2011 Overview: Pt reports Improvement on miralax. Last colonoscopy in 03/2012: normal. Encounters Care Team Description Date Type Specialty Gurinder Antunez MD 07/18/2018 Refill Anesthesia Pain SayedGurinder MD 06/18/2018 Orders Only Anesthesia Pain from Last 3 Months Family [...] Taken Vital Sign Reading 05/17/2018 10:46 AM [facility] Blood Pressure 133/97 05/17/2018 10:46 AM [facility] Pulse 109 05/17/2018 10:15 AM [facility] Temperature 36.7 C (98 F) 05/17/2018 10:15 AM [facility] Respiratory Rate 22 05/17/2018 10:15 AM [facility] Oxygen Saturation 98% - Inhaled Oxygen - Concentration 05/17/2018 10:15 AM [facility] Weight 95.3 kg (210 lb) 05/17/2018 10:15 AM [facility] Height 152.4 cm (5') 05/17/2018 10:15 AM [facility] Body Mass Index 41.01 Plan of Treatment Health Maintenance Due Date Last Done Comments PHYSICAL (COMPREHENSIVE) 09/22/1986 EXAM HIV SCREENING 09/22/1994 DTAP/TDAP VACCINES (1 - 09/22/1997 Tdap) CERVICAL CANCER SCREENING 09/22/2009 INFLUENZA VACCINE 12/13/2018 Results Not on filefrom Last 3 Months Insurance Type Payer Benefit Subscriber ID Effective Phone Address Plan / Dates Group Medicaid [facility] [place] [place] xxxxxxxxxxx [id number] [facility] Advance Directives Patient has advance care planning documents on file. For more information, please contact: [address] [address]
--- OUTSIDE RECORDS SUMMARY | 2018-08-19 19:49 | XMS REPORT | Encounter Summary ---
Author Author [facility] Organization [facility] Address Unknown Phone Unavailable Care Team Providers Care Manager Client Name Role Phone Norris Chavez MD Unavailable Robin Concepcion MD PCP Gurinder Antunez MD Unavailable Dwayne Davidson MD Unavailable Reason for Visit * Reason Comments Medication Refill Encounter Details Care Team Description Date Type Department Gurinder Antunez MD [address] [place], [place] [id number] 07/18/2018 Refill [facility] [address] [phone] Social History Date Tobacco Use Types Packs/Day [...] impairment: No documented as of this encounter Plan of Treatment Not on filedocumented as of this encounter Visit Diagnoses Not on filedocumented in this encounter
--- NOTE | 2018-08-19 20:33 | Diagnostic Imaging Report ---
INDICATION: Left lower quadrant abdominal pain for three weeks. COMPARISON STUDY: None. FINDINGS: Upright view of the chest demonstrates the lungs to be clear. The heart, mediastinum, pulmonary vascularity and visualized bony thorax are normal. Supine and upright views of the abdomen demonstrate surgical clips in the region of the gallbladder fossa. No free air or air fluid levels are present. There is increased stool throughout the colon. IMPRESSION: There is increased stool throughout the colon. Dictated by: Dictated on workstation # [id number]
--- NOTE | 2018-08-19 20:38 | ED Abdominal Pain ---
General Chief Complaint: Abdominal/GI Problems Stated Complaint: ABDOMINAL PAIN Source of Information: Patient History of Present Illness Date Seen by Provider: Aug 19, 2018 Time Seen by Provider: 20:38 Initial Comments 37-year-old female presenting to complaints of left lower quadrant abdominal pain and flank pain. She states that this is been going on for several weeks to months. She has been following with Victorino Mcgraw. The nurse practitioner at the clinic. She states that she has had trace amounts of blood in her urine as well. She is to get a CT scan but is waiting for authorization from insurance. Her pain got worse and she was told to come to the emergency department if she was having more severe pain. She states that she had been trying Tylenol and ibuprofen with minimal relief. She had also been given some tramadol with again minimal improvement. Her pain was more severe tonight so she came to the emergency department. She also has chronic constipation issues but states that this feels different. She does have a history of kidney stones but again states that this feels different than her prior kidney stones. She has had nausea and an episode of vomiting earlier in the day. She states that the pain radiates towards her right shoulder from her left lower quadrant and left flank. She he denies having any fever or chills. Allergies and Home Medications Allergies Coded Allergies: gabapentin (Verified Allergy, Unknown, 06/20/18) metoclopramide (Unverified Allergy, Unknown, "CAUSES PT TO LOSE CONTROL OF MUSCLES", 11/12/13) Home Medications Albuterol 8.5 Gm Hfa.aer.ad, 2 PUFF IH Q6H PRN for SHORTNESS OF BREATH, ( Reported) PRN SHORTNESS OF BREATH Ciprofloxacin HCl 5 Ml Drops, 3 DROPS EACH EAR BID Prescribed by: GAL FLYNN on 04/14/16 0950 Cyclobenzaprine HCl 10 Mg Tablet, 10 MG PO TID PRN for SPASMS Prescribed by: MONICA LLOYD on 06/20/18 0124 Diazepam 5 Mg Tablet, 5 MG PO Q6H PRN for ANXIETY, (Reported) PRN ANXIETY Ethosuximide 250 Mg Capsule, 250 MG PO HS, (Reported) Fluticasone/Salmeterol 250 Mcg/50 Mcg Inh, 1 SPRAY IH BID, (Reported) Prednisone 20 Mg Tab, 1 TAB PO DAILY Prescribed by: MONICA LLOYD on 06/20/18 0124 Patient Home Medication List Home Medication List Reviewed: Yes Review of Systems Review of Systems Constitutional: No chills, No fever EENTM: No Symptoms Reported Respiratory: No Symptoms Reported Cardiovascular: No Symptoms Reported Gastrointestinal: See HPI Genitourinary: See HPI Musculoskeletal: no symptoms reported Skin: no symptoms reported Psychiatric/Neurological: Anxiety Endocrine: No Symptoms Reported Hematologic/Lymphatic: No Symptoms Reported Past Bibagex-Rndemt-Tfnrsl Hx Past Med/Social Hx: Reviewed Nursing Past Med/Soc Hx Patient Social History Type Used: Cigarettes Recent Foreign Travel: No Contact w/Someone Who Travel: No Recent Hopitalizations: No Immunizations Up To Date Tetanus Booster (TDap): Unknown Seasonal Allergies Seasonal Allergies: No Past Medical History Surgeries: Yes (dental extractions) Gallbladder, Hysterectomy, 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 Respiratory: Yes Asthma, COPD Cardiac: Yes Heart Murmur Neurological: Yes Headaches /Migraines, Seizure Disorder 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 Disorders: Yes Female 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 Disorders: 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 0oz. 108.022096su; 34.2 BMI Method:Stated General Appearance: moderate distress, obese HEENT: normal ENT inspection, pharynx normal Neck: full range of motion, supple Respiratory: chest non-tender, lungs clear, normal breath sounds, no respiratory distress, no accessory muscle use Cardiovascular: normal peripheral pulses, regular rate, rhythm Gastrointestinal: normal bowel sounds, soft, no pulsatile mass, tenderness ( left lower quadrant and flank) Extremities: normal range of motion, non-tender Neurologic/Psychiatric: alert, oriented x 3 Skin: normal color, warm/dry; No rash Progress/Results/Core Measures Results/Orders My Orders Orders - LEIGH ANGEL MD Acute Abd Series (08/19/18 20:04) Ketorolac Injection (Toradol Injection) (08/19/18 21:00) Promethazine Injection (Phenergan Injec (08/19/18 21:00) Ct Abd/Pelvis Wo(Kidney Stone) (08/19/18 20:54) Fentanyl Injection (Sublimaze Injection (08/20/18 00:00) Rx-Hydrocodone/Apap 5-325 Mg (Rx-Vicodin (08/19/18 23:58) Medications Given in ED Current Medications Medications Dose Ordered Sig/Brissa Route Start Time Stop Time Status Last Admin Dose Admin Acetaminophen/ Hydrocodone Bitart 1 ea STK-MED ONCE PO 08/19/18 23:58 08/20/18 00:01 DC 08/20/18 00:04 1 EA Fentanyl Citrate 100 mcg ONCE ONCE IM 08/20/18 00:00 08/20/18 00:01 DC 08/19/18 23:58 100 MCG Ketorolac Tromethamine 60 mg ONCE ONCE IM 08/19/18 21:00 08/19/18 21:01 DC 08/19/18 21:11 60 MG Promethazine HCl 25 mg ONCE ONCE IM 08/19/18 21:00 08/19/18 21:01 DC 08/19/18 21:12 25 MG Vital Signs/I&O 08/19/18 08/20/18 19:52 00:05 Temp 97.7 97.0 Pulse 100 89 Resp 22 22 B/P (MAP) 154/96 (115) 126/83 (97) Pulse Ox 98 98 O2 Delivery Room Air Room Air Progress Progress Note #1: Time: 20:00 Progress Note Check his acute abdomen series to evaluate for constipation or free air or air- fluid levels. This did not demonstrate any of these findings. It did show increased amounts of stool present. With patient still having severe pain and will add on CT scan to evaluate for possible kidney stone versus diverticulitis versus developing bowel obstruction. Try Toradol and Phenergan IM for pain and nausea. Progress Note #2: Time: 23:[address] scan of her abdomen and pelvis did not show any pathology to account for her pain. Patient states that her symptoms were not improved with the initial treatment. She was also concerned that the medicines were not given IV as she felt like the IM medicines were not effective and she needed to have the medication IV. I advised her that she may need to have testing beyond what was available through the emergency department such as see a urologist for cystoscopy or possibly have another colonoscopy done. However there is no indication for surgery tonight or emergency admission with the CT scan not showing anything acute in her area of pain. We will try an additional pain shot and discharge her home with a few pain pills to help for overnight and then have her check back with the nurse practitioner morning to see what they would like to do next. Diagnostic Imaging Diagonstic Imaging: Xray Plain Films/CT/US/NM/MRI: abdomen Comments NAME: [facility] REC#: [id number] PT STATUS: REG ER : 1980 PHYSICIAN: LEIGH ANGEL MD ADMIT DATE: 08/19/18/ER FS Signed Date of Exam:08/19/18 ACUTE ABD SERIES INDICATION: Left lower quadrant abdominal pain for three weeks. COMPARISON STUDY: None. FINDINGS: Upright view of the chest demonstrates the lungs to be clear. The heart, mediastinum, pulmonary vascularity and visualized bony thorax are normal. Supine and upright views of the abdomen demonstrate surgical clips in the region of the gallbladder fossa. No free air or air fluid levels are present. There is increased stool throughout the colon. IMPRESSION: There is increased stool throughout the colon. Dictated by: Dictated on workstation # [id number] Dict: 08/19/182025 Trans: 08/19/182117 [id number] Interpreted by: ELIU TOBAR MD Electronically signed by: ELIU TOBAR MD 08/19/182117 Reviewed: Reviewed by Me (reviewed radiology report) Diagonstic Imaging: CT Plain Films/CT/US/NM/MRI: abdomen, pelvis Comments NAME: J[facility]ENTINO [facility] REC#: [id number] PT STATUS: REG ER : 1980 PHYSICIAN: LEIGH ANGEL MD ADMIT DATE: 08/19/18/ER FS Draft Date of Exam:08/19/18 CT ABD/PELVIS WO(KIDNEY STONE) INDICATION: Left-sided abdominal pain for one month. History of tubal ligation, , hysterectomy and cholecystectomy. COMPARISON STUDY: Plain films of the abdomen from today. FINDINGS: Lung bases are clear. The gallbladder is absent. There is borderline fatty metamorphosis of the liver. Liver is upper normal in size. The spleen, pancreas, adrenal glands and kidneys appear normal. An appendicolith is present. No inflammatory changes are present in the appendix. There is no dilatation of the appendix. There is no ascites, free air or abnormal adenopathy. Urinary bladder is normal. The uterus is absent. Bowel loops appear normal. No hernias are present. Osseous structures appear normal. IMPRESSION: 1. There is borderline hepatomegaly and fatty metamorphosis. 2. An appendicolith is present without inflammation or dilatation. Dictated on workstation # [id number] Dict: 08/19/182156 Trans: 08/19/182201 [facility] [id number] Interpreted by: ELIU TOBAR MD Electronically signed by: Reviewed: Reviewed by Me (reviewed radiology report) Departure Impression Primary Impression: Left flank pain Additional Impression: Left lower quadrant abdominal pain of unknown etiology Disposition: HOME, SELF-CARE Condition: Stable Departure-Patient Inst. Decision time for Depature: 23:50 Referrals: NO,LOCAL PHYSICIAN (PCP) Primary Care Physician Patient Instructions: Flank Pain (DC) Add. Discharge Instructions: Check back with your provider in the clinic in the morning. They may want you to see a Urologist for other testing since you have not had any findings on your CT scan to show a reason for your pain. There were no kidney stones or signs of inflammation. Try the pain medicine for tonight and see what Rangel Mcgraw APRN wants to do for your pain in the morning. All discharge instructions reviewed with patient and/or family. Voiced understanding. LEIGH ANGEL MD Aug 19, 2018 20:38
[2018-08-19] MEDS ORDERED: KETOROLAC 60 MG/2 ML VIAL IM ONE (21:00)
[2018-08-19] MEDS ORDERED: PROMETHAZINE INJ 25 MG/ML (PHENERGAN) AMP IM ONE (21:00)
--- NOTE | 2018-08-19 22:02 | Diagnostic Imaging Report ---
INDICATION: Left-sided abdominal pain for one month. History of tubal ligation, , hysterectomy and cholecystectomy. COMPARISON STUDY: Plain films of the abdomen from today. FINDINGS: Lung bases are clear. The gallbladder is absent. There is borderline fatty metamorphosis of the liver. Liver is upper normal in size. The spleen, pancreas, adrenal glands and kidneys appear normal. An appendicolith is present. No inflammatory changes are present in the appendix. There is no dilatation of the appendix. There is no ascites, free air or abnormal adenopathy. Urinary bladder is normal. The uterus is absent. Bowel loops appear normal. No hernias are present. Osseous structures appear normal. IMPRESSION: 1. There is borderline hepatomegaly and fatty metamorphosis. 2. An appendicolith is present without inflammation or dilatation. Dictated by: Dictated on workstation # [id number]
[2018-08-19] MEDS ORDERED: RX-HYDROCODONE/APAP 5/325 MG #4 TAB PK PO ONE (23:58)
[2018-08-20] MEDS ORDERED: fentaNYL INJECTION 100 MCG/2 ML AMP IM ONE
[2018-08-20 00:05] VITALS: BP 126/83
== END 2018-08-20 00:05 | disposition home or self-care (01) ==
LOC: EDUNIT# 19:42 → ER FS 19:45
DX: R10.32 Left lower quadrant pain (principal); J44.9 Chronic obstructive pulmonary disease, unspecified; G43.909 Migraine, unspecified, not intractable, without status migrainosus; G40.909 Epilepsy, unspecified, not intractable, without status epilepticus; M41.9 Scoliosis, unspecified; Q05.9 Spina bifida, unspecified; F41.9 Anxiety disorder, unspecified; F32.9 Major depressive disorder, single episode, unspecified; Z87.448 Personal history of other diseases of urinary system; Z88.8 Allergy status to other drugs, medicaments and biological substances; Z87.442 Personal history of urinary calculi; Z79.51 Long term (current) use of inhaled steroids; Z79.52 Long term (current) use of systemic steroids; Z90.710 Acquired absence of both cervix and uterus; Z98.51 Tubal ligation status; Z98.890 Other specified postprocedural states
CPT/HCPCS: 74022; 74176

== ENCOUNTER 2018-09-25 00:30 | Emergency (ER) | payer MEDICAID ==
[~2018-09-25] VITALS: Ht 152.4 cm; Wt 104.3 kg
[2018-09-25] MEDS ORDERED: morphine INJ 10 MG/ML 1ML (SYR OR VIAL) IVP STA (00:42)
[2018-09-25] MEDS ORDERED: ONDANSETRON 4 MG/2 ML (SDV) Z0FRAN IVP ONE (00:45)
[2018-09-25] MEDS ORDERED: KETOROLAC 30 MG/ML VIAL IVP ONE (00:45)
[2018-09-25 01:14] LABS: WHITE BLOOD COUNT 12.8 10^3/uL (4.3-11.0)
[2018-09-25 01:15] LABS: BASOPHILS % (AUTO) 1 % (0-10); EOSINOPHILS % (AUTO) 2 % (0-10); HEMATOCRIT 37 % (35-52); HEMOGLOBIN 12.5 G/DL (11.5-16.0); LYMPHOCYTES % (AUTO) 37 % (12-44); MEAN CORPUSCULAR HEMOGLOBIN 30 PG (25-34); MEAN CORPUSCULAR HGB CONC 34 G/DL (32-36); MEAN CORPUSCULAR VOLUME 88 FL (80-99); MEAN PLATELET VOLUME 9.5 FL (7.4-10.4); MONOCYTES % (AUTO) 5 % (0-12); NEUTROPHILS % (AUTO) 56 % (42-75); PLATELET COUNT 393 10^3/uL (130-400); RED CELL DISTRIBUTION WIDTH 13.4 % (10.0-14.5)
[2018-09-25 01:16] LABS: BASOPHILS # (AUTO) 0.1 10^3/uL (0.0-0.1); EOSINOPHILS # (AUTO) 0.2 10^3/uL (0.0-0.3); LYMPHOCYTES # (AUTO) 4.7 X 10^3 (1.0-4.0); MONOCYTES # (AUTO) 0.6 X 10^3 (0.0-1.0); NEUTROPHILS # (AUTO) 7.2 X 10^3 (1.8-7.8)
--- NOTE | 2018-09-25 01:18 | ED Abdominal Pain ---
General Chief Complaint: Abdominal/GI Problems Stated Complaint: RT SIDE ABD PAIN Nursing Triage Note: c/o RLQ pain Sepsis Screen: No Definite Risk Source of Information: Patient History of Present Illness Date Seen by Provider: September 25, 2018 Time Seen by Provider: 00:30 Initial Comments Patient is a 38-year-old female with previous hysterectomy, salpingo- oophorectomy and kidney stones who presents with acute onset right upper quadrant/pelvic pain starting 4 hours prior to arrival. Patient reports nausea, denies fever chills, vomiting sweats. Denies flank pain. Pain feels different than prior kidney stones. Pain is described as tolerated mild to moderate. Patient took ibuprofen prior to arrival with limited improvement. Patient also reports bright red blood in stools. History of rectal bleeding. Patient states she's been evaluated by her PCP for this condition multiple times and has not received a diagnosis. No history of diverticulitis or diverticulosis. No other acute symptoms or complaints. Timing/Duration: 4-6 Hours Severity/Quality: Mild Location: RLQ Associated Symptoms: Denies Symptoms Allergies and Home Medications Allergies Coded Allergies: gabapentin (Verified Allergy, Unknown, 06/20/18) metoclopramide (Unverified Allergy, Unknown, "CAUSES PT TO LOSE CONTROL OF MUSCLES", 11/12/13) Home Medications Albuterol 8.5 Gm Hfa.aer.ad, 2 PUFF IH Q6H PRN for SHORTNESS OF BREATH, ( Reported) PRN SHORTNESS OF BREATH Ciprofloxacin HCl 5 Ml Drops, 3 DROPS EACH EAR BID Prescribed by: GAL FLYNN on 04/14/16 0950 Ethosuximide 250 Mg Capsule, 250 MG PO HS, (Reported) Fluticasone/Salmeterol 250 Mcg/50 Mcg Inh, 1 SPRAY IH BID, (Reported) Patient Home Medication List Home Medication List Reviewed: Yes Review of Systems Review of Systems Constitutional: no symptoms reported EENTM: No Symptoms Reported Respiratory: No Symptoms Reported Cardiovascular: No Symptoms Reported Gastrointestinal: See HPI Genitourinary: No Symptoms Reported Musculoskeletal: no symptoms reported Skin: no symptoms reported Past Qkjqwbx-Rwnzpb-Omhupi Hx Patient Social History Alcohol Use: Denies Use Recreational Drug Use: No Smoking Status: Current Everyday Smoker Type Used: Cigarettes 2nd Hand Smoke Exposure: Yes Recent Foreign Travel: No Contact w/Someone Who Travel: No Recent Infectious Disease Expo: No Recent Hopitalizations: No Physical Abuse: No Sexual Abuse: No Mistreated: No Fear: No Immunizations Up To Date Tetanus Booster (TDap): Unknown Seasonal Allergies Seasonal Allergies: No Past Medical History Surgeries: Yes (dental extractions) Gallbladder, Hysterectomy, 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 Respiratory: Yes Asthma, COPD Cardiac: Yes Heart Murmur Neurological: Yes Headaches /Migraines, Seizure Disorder : No 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 Disorders: Yes Female 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 Disorders: 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, 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 0oz. 104.385435mq; 34.2 BMI Method:Stated General Appearance: WD/WN, no apparent distress HEENT: PERRL/EOMI Neck: full range of motion, supple Respiratory: chest non-tender, lungs clear, normal breath sounds Cardiovascular: normal peripheral pulses, regular rate, rhythm Gastrointestinal: soft, other (RLQ pain, min tenderness, negative McBurnery's sign, obesity compromising exam.) Extremities: normal range of motion, non-tender Neurologic/Psychiatric: aerotriangulation specialist II-XII nml as tested, no motor/sensory deficits Skin: normal color Focused Exam Sepsis Stage: Ruled Out Progress/Results/Core Measures Results/Orders Lab Results Laboratory Tests Test 09/25/18 00:53 09/25/18 01:33 Range/Units White Blood Count 12.8 H 4.3-11.0 10^3/uL Red Blood Count 4.18 L 4.35-5.85 10^6/uL Hemoglobin 12.5 11.5-16.0 G/DL Hematocrit 37 35-52 % Mean Corpuscular Volume 88 80-99 FL Mean Corpuscular Hemoglobin 30 25-34 PG Mean Corpuscular Hemoglobin Concent 34 32-36 G/DL Red Cell Distribution Width 13.4 10.0-14.5 % Platelet Count 393 130-400 10^3/uL Mean Platelet Volume 9.5 7.4-10.4 FL Neutrophils (%) (Auto) 56 42-75 % Lymphocytes (%) (Auto) 37 12-44 % Monocytes (%) (Auto) 5 0-12 % Eosinophils (%) (Auto) 2 0-10 % Basophils (%) (Auto) 1 0-10 % Neutrophils # (Auto) 7.2 1.8-7.8 X 10^3 Lymphocytes # (Auto) 4.7 H 1.0-4.0 X 10^3 Monocytes # (Auto) 0.6 0.0-1.0 X 10^3 Eosinophils # (Auto) 0.2 0.0-0.3 10^3/uL Basophils # (Auto) 0.1 0.0-0.1 10^3/uL Sodium Level 142 135-145 MMOL/L Potassium Level 3.4 L 3.6-5.0 MMOL/L Chloride Level 103 98-107 MMOL/L Carbon Dioxide Level 21 21-32 MMOL/L Anion Gap 18 H 5-14 MMOL/L Blood Urea Nitrogen 5 L 7-18 MG/DL Creatinine 0.63 0.60-1.30 MG/DL Estimat Glomerular Filtration Rate > 60 BUN/Creatinine Ratio 8 Glucose Level 104 70-105 MG/DL Calcium Level 8.7 8.5-10.1 MG/DL Corrected Calcium 8.7 8.5-10.1 MG/DL Total Bilirubin 0.2 0.1-1.0 MG/DL Aspartate Amino Transf (AST/SGOT) 27 5-34 U/L Alanine Aminotransferase (ALT/SGPT) 28 0-55 U/L Alkaline Phosphatase 112 40-136 U/L Total Protein 6.9 6.4-8.2 GM/DL Albumin 4.0 3.2-4.5 GM/DL Urine Color YELLOW Urine Clarity SLT CLOUDY Urine pH 6.5 5-9 Urine Specific [place] 1.025 H 1.016-1.022 Urine Protein TRACE NEGATIVE Urine Glucose (UA) NEGATIVE NEGATIVE Urine Ketones NEGATIVE NEGATIVE Urine Nitrite NEGATIVE NEGATIVE Urine Bilirubin NEGATIVE NEGATIVE Urine Urobilinogen 0.2 NORMAL MG/DL Urine Leukocyte Esterase NEGATIVE NEGATIVE Urine RBC (Auto) TRACE H NEGATIVE Urine RBC 0-2 /HPF Urine WBC 0-2 /HPF Urine Squamous Epithelial Cells 10-25 H /HPF Urine Crystals NONE /LPF Urine Bacteria NEGATIVE /HPF Urine Casts NONE /LPF Urine Mucus SMALL H /LPF Urine Culture Indicated NO My Orders Orders - LIZZ HERRERA DO Cbc With Automated Diff (09/25/18 00:42) Comprehensive Metabolic Panel (09/25/18 00:42) Urinalysis (09/25/18 00:42) Morphine Injection (Morphine Injection (09/25/18 00:42) Ondansetron Injection (Zofran Injectio (09/25/18 00:45) Ketorolac Injection (Toradol Injection) (09/25/18 00:45) Ct Abdomen/Pelvis W (09/25/18 00:44) Iohexol Injection (Omnipaque 350 Mg/Ml 1 (09/25/18 01:45) Received Contrast (Hold Metformin- Contr (09/25/18 01:45) Sodium Chloride Flush (Catheter Flush Sy (09/25/18 01:45) Ns (Ivpb) (Sodium Chloride 0.9% Ivpb Bag (09/25/18 01:45) Medications Given in ED Current Medications Medications Dose Ordered Sig/Brissa Route Start Time Stop Time Status Last Admin Dose Admin Iohexol 100 ml ONCE ONCE IV 09/25/18 01:45 09/25/18 01:46 UNV 09/25/18 02:02 100 ML Ketorolac Tromethamine 30 mg ONCE ONCE IVP 09/25/18 00:45 09/25/18 00:46 DC 09/25/18 00:57 30 MG Ondansetron HCl 4 mg ONCE ONCE IVP 09/25/18 00:45 09/25/18 00:46 DC 09/25/18 00:55 4 MG Sodium Chloride 10 ml NEEDED PRN IV 09/25/18 01:45 UNV 09/25/18 02:02 10 ML Sodium Chloride 50 ml ONCE ONCE IV 09/25/18 01:45 09/25/18 01:46 UNV 09/25/18 02:02 50 ML Vital Signs/I&O 09/25/18 09/25/18 00:34 02:00 Temp 98.7 Pulse 99 92 Resp 18 B/P (MAP) 134/90 (105) 157/97 (117) Pulse Ox 97 Blood Pressure Mean: 105 Departure Communication (Admissions) CT abdomen pelvis: No evidence of appendicitis. Abdominal pain improved with treatment. Commend watchful waiting, supportive care and PCP follow-up. Impression Primary Impression: Lower abdominal pain Disposition: 01 HOME, SELF-CARE Condition: Improved Departure-Patient Inst. Decision time for Depature: 02:44 Referrals: NO,LOCAL PHYSICIAN (PCP/Family) Primary Care Physician LIZZ HERRERA DO September 25, 2018 01:18
[2018-09-25 01:35] LABS: BILIRUBIN,TOTAL 0.2 MG/DL (0.1-1.0); BUN/CREATININE RATIO 8; CALCIUM 8.7 MG/DL (8.5-10.1); CARBON DIOXIDE 21 MMOL/L (21-32); CHLORIDE 103 MMOL/L (98-107); CREATININE SERUM 0.63 MG/DL (0.60-1.30); GFR ESTIMATED > 60; GLUCOSE 104 MG/DL (70-105); POTASSIUM 3.4 MMOL/L (3.6-5.0); SODIUM 142 MMOL/L (135-145)
[2018-09-25 01:36] LABS: ALANINE AMINOTRANSFERASE 28 U/L (0-55); ALKALINE PHOSPHATASE 112 U/L (40-136); TOTAL PROTEIN 6.9 GM/DL (6.4-8.2)
[2018-09-25 01:45] LABS: BILIRUBIN,URINE NEGATIVE (NEGATIVE); CLARITY,URINE SLT CLOUDY; COLOR,URINE YELLOW; GLUCOSE, URINE (UA) NEGATIVE (NEGATIVE); KETONES,URINE NEGATIVE (NEGATIVE); LEUKOCYTE ESTERASE ,URINE NEGATIVE (NEGATIVE); NITRITE,URINE NEGATIVE (NEGATIVE); PH,URINE 6.5 (5-9); PROTEIN,URINE TRACE (NEGATIVE); UROBILINOGEN,URINE 0.2 MG/DL (NORMAL)
[2018-09-25] MEDS ORDERED: IOHEXOL 350 MG/ML 100 ML (OMNIPAQUE 350) VIAL IV ONE (01:45)
[2018-09-25] MEDS ORDERED: HOLD METFORMIN - RECEIVED CONTRAST 20 ML VIAL IV SCH (01:45)
[2018-09-25] MEDS ORDERED: CATHETER FLUSH 10 ML SYR IV PRN (01:45)
[2018-09-25] MEDS ORDERED: NS 50 ML (IVPB) BAG IV ONE (01:45)
[2018-09-25 01:46] LABS: BACTERIA,URINE NEGATIVE /HPF; RBC,URINE 0-2 /HPF; WBC,URINE 0-2 /HPF
[2018-09-25 02:00] VITALS: BP 157/97
[2018-09-25] MEDS ORDERED: DULOXETINE 60 MG (02:18)
[2018-09-25] MEDS ORDERED: OMEPRAZOLE CAP 40MG (02:18)
[2018-09-25] MEDS ORDERED: TRIMETHOPRIM 100 MG (02:18)
[2018-09-25] MEDS ORDERED: DIAZEPAM TAB 5MG (02:21)
[2018-09-25 02:45] VITALS: BP 145/83
--- NOTE | 2018-09-25 07:26 | Diagnostic Imaging Report ---
PROCEDURE: CT abdomen and pelvis with contrast. TECHNIQUE: Multiple contiguous axial images were obtained through the abdomen and pelvis after administration of intravenous contrast. Auto Exposure Controls were utilized during the CT exam to meet ALARA standards for radiation dose reduction. INDICATION: Abdominal pain. FINDINGS: The heart size is normal. The lung bases are clear. There is fatty infiltration of the liver. There are no focal liver lesions. Gallbladder surgically absent. No biliary ductal dilatation. Spleen is normal. Pancreas and adrenal glands are unremarkable. Kidneys are normal in appearance. Aorta is nonaneurysmal. Bowel gas pattern is nonspecific. No free air. No ascites. No focal inflammatory changes. Appendix is normal. Bladder is normal. No pelvic mass, adenopathy or free fluid. IMPRESSION: No acute abnormality in the abdomen or pelvis. Fatty infiltration of the liver. Dictated by: Dictated on workstation # [id number]
== END 2018-09-25 02:50 | disposition home or self-care (01) ==
LOC: EDUNIT# 00:30 → ER FS 00:32
DX: R10.2 Pelvic and perineal pain (principal); J44.9 Chronic obstructive pulmonary disease, unspecified; F32.9 Major depressive disorder, single episode, unspecified; K21.9 Gastro-esophageal reflux disease without esophagitis; F41.9 Anxiety disorder, unspecified; M41.9 Scoliosis, unspecified; Q05.9 Spina bifida, unspecified; G43.909 Migraine, unspecified, not intractable, without status migrainosus; G40.909 Epilepsy, unspecified, not intractable, without status epilepticus; F17.210 Nicotine dependence, cigarettes, uncomplicated; Z87.19 Personal history of other diseases of the digestive system; Z98.51 Tubal ligation status; Z98.890 Other specified postprocedural states; Z90.710 Acquired absence of both cervix and uterus; Z87.442 Personal history of urinary calculi; Z88.8 Allergy status to other drugs, medicaments and biological substances
CPT/HCPCS: 36415; 74177; 80053; 81000; 85025; 96374; 96375

== ENCOUNTER → 2018-11-07 | Outpatient (CLI) | payer MEDICAID ==
[~2018-11-07] MED LIST changes: +DIAZEPAM TAB 5MG; +DULOXETINE 60 MG; +OMEPRAZOLE CAP 40MG; +TRIMETHOPRIM 100 MG
--- NOTE | 2018-11-07 10:29 | Diagnostic Imaging Report ---
INDICATION: Lower abdominal pain. COMPARISON: CT abdomen and pelvis of 09/25/2018. FINDINGS: Nonobstructive bowel gas pattern. No free intraperitoneal air. Cholecystectomy. Moderate volume of colonic stool. Normal regional skeleton. Scattered pelvic phleboliths. IMPRESSION: 1. Nonobstructive bowel gas pattern and no free intraperitoneal air. 2. Moderate volume of colonic stool could be physiologic or due to constipation. Dictated by: Dictated on workstation # [id number]
== END ==
LOC: RAD FS 09:50
PROVIDERS: ATTEND Nurse Practitioner Family
DX: R10.30 Lower abdominal pain, unspecified (principal); Z90.49 Acquired absence of other specified parts of digestive tract
CPT/HCPCS: 74019

== ENCOUNTER 2018-11-30 00:30 | Emergency (ER) | payer MEDICAID ==
[~2018-11-30] VITALS: Ht 152.4 cm; Wt 77.1 kg
[2018-11-30] MEDS ORDERED: KETOROLAC 60 MG/2 ML VIAL IM ONE (01:00)
--- NOTE | 2018-11-30 01:01 | ED Back Pain ---
General Chief Complaint: Back Problems Stated Complaint: LOW BACK PAIN Nursing Triage Note: PT. REPORTED THAT HER BACK PAIN STARTED AT 2330 TONIGHT. PT. WAS SEEN IN URGENT CARE TODAY BECAUSE OF A PREVIOUS FALL BUT FOUND OUT VIA [facility] NOTHING WAS BROKEN. SHE WAS GIVEN A MUSCLE RELAXER BY URGENT CARE. Nursing Sepsis Screen: No Definite Risk Source of Information: Patient Exam Limitations: No Limitations History of Present Illness Date Seen by Provider: Nov 30, 2018 Time Seen by Provider: 00:50 Initial Comments The patient is an obese 38-year-old female who presents for evaluation of right lower back discomfort at the upper pelvis region. She states that she was having low back pain earlier today related to a recent fall and went to an urgent care where she had x-rays of her lower back performed which were unremarkable. She was prescribed a muscle relaxer and received a steroid shot. She is a history of chronic back pain and is well-known to this emergency Department. She tells me that she has had a hysterectomy in the past. She denies fevers or chills, loss of bowel or bladder function, recent trauma (other than the recent fall), or any other complaints. She is alert and oriented 4, calm, and appears to be in distress. She is here with her mother and son. Severity: Moderate Method of Injury: Fall Modifying Factors: Improves With Movement (Pain worse) Associated Symptoms: denies symptoms Allergies and Home Medications Allergies Coded Allergies: gabapentin (Verified Allergy, Unknown, 06/20/18) metoclopramide (Unverified Allergy, Unknown, "CAUSES PT TO LOSE CONTROL OF MUSCLES", 11/12/13) Home Medications Albuterol 8.5 Gm Hfa.aer.ad, 2 PUFF IH Q6H PRN for SHORTNESS OF BREATH, (Reported) PRN SHORTNESS OF BREATH Ciprofloxacin HCl 5 Ml Drops, 3 DROPS EACH EAR BID Prescribed by: GAL FLYNN on 04/14/16 0950 Ethosuximide 250 Mg Capsule, 250 MG PO HS, (Reported) Fluticasone/Salmeterol 250 Mcg/50 Mcg Inh, 1 SPRAY IH BID, (Reported) Meloxicam 15 Mg Tablet, 15 MG PO Q6H Prescribed by: JESSENIA SOSA on 11/30/18 0103 Patient Home Medication List Home Medication List Reviewed: Yes Review of Systems Constitutional: no symptoms reported EENTM: no symptoms reported Respiratory: no symptoms reported Cardiovascular: no symptoms reported Gastrointestinal: no symptoms reported Genitourinary: no symptoms reported : No Musculoskeletal: back pain (right lower lateral) Skin: no symptoms reported Psychiatric/Neurological: No Symptoms Reported All Other Systems Reviewed Negative Unless Noted: Yes Past Rjbgree-Btllrb-Oysirq Hx Past Med/Social Hx: Reviewed Nursing Past Med/Soc Hx Patient Social History Type Used: Cigarettes 2nd Hand Smoke Exposure: Yes Recent Foreign Travel: No Contact w/Someone Who Travel: No Recent Infectious Disease Expo: No Recent Hopitalizations: No Physical Abuse: No Sexual Abuse: No Mistreated: No Fear: No Immunizations Up To Date Tetanus Booster (TDap): Unknown Seasonal Allergies Seasonal Allergies: No Past Medical History Surgeries: Yes (dental extractions) Gallbladder, Hysterectomy, 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 Respiratory: Yes Asthma, COPD Cardiac: Yes Heart Murmur Neurological: Yes Headaches /Migraines, Seizure Disorder 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 Disorders: Yes Female 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 Disorders: 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, 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 Sexually Transmitted Disease: No Genitourinary: Yes Kidney Stones Gastrointestinal: No Gastroesophageal Reflux, Diverticulosis, Ulcer Musculoskeletal: Yes (spina bifida) Arthritis, Scoliosis, Chronic Back Pain Endocrine: No Chronic Ear Infection Hearing Impairment: Hard of Hearing Cancer: No Psychosocial: Yes Anxiety, Depression Integumentary: No Blood Disorders: No Physical Exam Vital Signs Vital Signs - First Documented 11/30/18 00:43 Temp 98.1 Pulse 116 Resp 20 B/P (MAP) 159/108 (125) Pulse Ox 95 O2 Delivery Room Air Capillary Refill : Less Than 3 Seconds Height, Weight, BMI Height: 5'0" Weight: 170lbs. 0oz. 77.494197xb; 34.2 BMI Method:Stated General Appearance: No Apparent Distress, WD/WN, Obese HEENT: PERRL/EOMI, TMs Normal, Pharynx Normal Cardiovascular: Regular Rate, Rhythm, No Edema, No Murmur Respiratory: Chest Non Tender, Normal Breath Sounds, No Accessory Muscle Use, No Respiratory Distress Gastrointestinal: Normal Bowel Sounds, Non Tender, Soft Back: No CVA Tenderness, No Vertebral Tenderness, Muscle Spasm, Other (there is a muscle spasm and some tenderness in the right lateral lower back just above the upper pelvis, no CVA tenderness, no midline thoracic or lumbar tenderness) Extremity: Normal Capillary Refill, No Pedal Edema Neurologic/Psychiatric: Alert, Oriented x3, No Motor/Sensory Deficits, Normal Mood/Affect Skin: Normal Color, Warm/Dry Progress/Results/Core Measures Results/Orders Lab Results Laboratory Tests Test 11/30/18 00:55 Range/Units Urine Color YELLOW Urine Clarity CLEAR Urine pH 6.0 5-9 Urine Specific [place] 1.020 1.016-1.022 Urine Protein NEGATIVE NEGATIVE Urine Glucose (UA) NEGATIVE NEGATIVE Urine Ketones NEGATIVE NEGATIVE Urine Nitrite NEGATIVE NEGATIVE Urine Bilirubin NEGATIVE NEGATIVE Urine Urobilinogen 0.2 NORMAL MG/DL Urine Leukocyte Esterase NEGATIVE NEGATIVE Urine RBC (Auto) 1+ H NEGATIVE Urine RBC 0-2 /HPF Urine WBC NONE /HPF Urine Squamous Epithelial Cells 10-25 H /HPF Urine Crystals NONE /LPF Urine Bacteria FEW H /HPF Urine Casts NONE /LPF Urine Mucus SMALL H /LPF Urine Culture Indicated NO My Orders Orders - JESSENIA SOSA DO Ua Culture If Indicated (11/30/18 00:43) Ketorolac Injection (Toradol Injection) (11/30/18 01:00) Tramadol Tablet (Ultram Tablet) (11/30/18 01:00) Medications Given in ED Current Medications Medications Dose Ordered Sig/Brissa Route Start Time Stop Time Status Last Admin Dose Admin Ketorolac Tromethamine 60 mg ONCE ONCE IM 11/30/18 01:00 11/30/18 01:01 DC 11/30/18 01:04 60 MG Tramadol HCl 50 mg ONCE ONCE PO 11/30/18 01:00 11/30/18 01:01 DC 11/30/18 01:04 50 MG Vital Signs/I&O 11/30/18 00:43 Temp 98.1 Pulse 116 Resp 20 B/P (MAP) 159/108 (125) Pulse Ox 95 O2 Delivery Room Air Blood Pressure Mean: 125 Progress Progress Note : Progress Note @0127 - The patient reports that she is feeling better just to go home. She is stable for discharge at this time. No indication for imaging at this time. Advise close follow-up with PCP and/or pain management doctor in next 1-2 days. It does return to the emergency department for new or worsening symptoms. The patient expressed verbal understanding and agreement with the plan. Departure Impression Primary Impression: Low back pain Additional Impression: Muscle spasm Disposition: HOME, SELF-CARE Condition: Stable Departure-Patient Inst. Decision time for Depature: 01:28 Referrals: [facility]/JENNIFER (PCP) Primary Care Physician MAYKEL CUMMINS APRN (Family) Primary Care Physician Patient Instructions: MANAGING YOUR CHRONIC PAIN, Muscle Spasms (DC), Lumbar Muscle Strain (DC) Add. Discharge Instructions: Take the prescribed medicine as directed. Follow up with her doctor in the next 2-3 days. Return to the ER for new or worsening symptoms. Scripts Meloxicam (Mobic) 15 Mg Tablet 15 MG PO Q6H for Back Pain, #20 TAB Prov: JESSENIA SOSA DO 11/30/18 JESSENIA SOSA DO Nov 30, 2018 01:01
[2018-11-30] MEDS ORDERED: MELO15TA14 PO (01:03)
[2018-11-30 01:12] LABS: BILIRUBIN,URINE NEGATIVE (NEGATIVE); CLARITY,URINE CLEAR; COLOR,URINE YELLOW; GLUCOSE, URINE (UA) NEGATIVE (NEGATIVE); KETONES,URINE NEGATIVE (NEGATIVE); LEUKOCYTE ESTERASE ,URINE NEGATIVE (NEGATIVE); NITRITE,URINE NEGATIVE (NEGATIVE); PROTEIN,URINE NEGATIVE (NEGATIVE); RBC,URINE 0-2 /HPF; UROBILINOGEN,URINE 0.2 MG/DL (NORMAL)
[2018-11-30 01:13] LABS: BACTERIA,URINE FEW /HPF
[2018-11-30 01:38] VITALS: BP 159/108
--- OUTSIDE RECORDS SUMMARY | 2018-11-30 17:18 | XMS REPORT | Clinical Summary ---
Author Author [facility] Organization [facility] Address Unknown Phone Unavailable Care Team Providers Care Spray I Painter Name Role Phone PCP Unavailable Allergies Not [...]
--- OUTSIDE RECORDS SUMMARY | 2018-11-30 17:19 | XMS REPORT | Encounter Summary ---
Author Author [facility] Organization [facility] Address Unknown Phone Unavailable Care Team Providers Care Assistant Hairstylist Name Role Phone Norris Chavez MD Unavailable Robin Concepcion MD PCP Gurinder Antunez MD Unavailable Dwayne Davidson MD Unavailable Reason for Visit * Reason Comments Medication Refill Encounter Details Care Team Description Date Type Department Gurinder Antunez MD [address] [place], [place] [id number] 07/18/2018 Refill [facility] [address] [id number] Social History Date Tobacco Use Types Packs/Day Years Used Current Every Day Smoker Cigarettes 1 10 Smokeless Tobacco: Never Used Drinks/Week oz/Week Comments Alcohol Use less than once a month Yes Sex Assigned at Date Recorded Not on [...]
--- OUTSIDE RECORDS SUMMARY | 2018-11-30 17:19 | XMS REPORT | Clinical Summary ---
Author Author [facility] Organization [facility] Address Unknown Phone Unavailable Care Team Providers Care Java J2Ee Lead Name Role Phone Norris Chavez MD Unavailable Robin Concepcoin MD PCP SayedGurinder MD Unavailable wDayne Davidson MD Unavailable Source Comments Some departments are not documenting in the electronic medical record. If you d o not see the information that you expected, contact Release of Information in [facility] Information Management department at [phone] for further assistan ce in locating additional records.[facility] Allergies Comments Active Allergy Reactions Severity Noted [...] of lumbosacral region without myelopathy or radiculopathy 08/17/2016 Anal fissure 10/03/2012 Overview: Worsening of the [...] mildly delayed. Colonoscopy and EGD 2011 in [facility]: normal. CT abd/pelvis 02/2012: thickining of the ascending colon. Hx of laparoscopic adhesiolysis with minimal improvement of pain. Hypogastric nerve block done by Dr Carrington 09/05/12 - complete resolution of abd pain. Anemia 09/13/2011 Overview: EGD 08/31/11 : normal. Small bowel capsule - normal. Celiac disease serology negative. Colonoscopy in [facility] 03/2012 : external hemorrhoids. Otherwise, normal and normal TI. EGD 03/2012: normal. bx neg for celiac ds. No h.pylori. Bx: david esophagitis Constipation 09/13/2011 Overview: Pt reports Improvement on miralax. Last colonoscopy in 03/2012: normal. Family History Medical History Relation Name Comments [...] Ready to Quit: Yes; Counseling Given: Yes Drinks/Week oz/Week Comments Alcohol Use less than once a month Yes Sex Assigned at Date Recorded Not on file Industry Job Start Date Occupation Not on file Not on file Not on file Travel End Travel History Travel Start No recent travel history available. Last Filed Vital Signs Reading Time Taken Comments Vital Sign 133/97 05/17/2018 10:46 AM HAND FLESHER asymptomatic Blood Pressure 109 05/17/2018 10:46 AM HAND FLESHER Pulse 36.7 C (98 F) 05/17/2018 10:15 AM HAND FLESHER Temperature 22 05/17/2018 10:15 AM HAND FLESHER Respiratory Rate 98% 05/17/2018 10:15 AM HAND FLESHER Oxygen Saturation - - Inhaled Oxygen Concentration 95.3 kg (210 lb) 05/17/2018 10:15 AM HAND FLESHER Weight 152.4 cm (5') 05/17/2018 10:15 AM HAND FLESHER Height 41.01 05/17/2018 10:15 AM HAND FLESHER Body Mass Index Plan of Treatment Health Maintenance Due Date Last Done Comments PHYSICAL (COMPREHENSIVE) 09/22/1986 EXAM HIV SCREENING 09/22/1994 DTAP/TDAP VACCINES ( - 09/22/1997 Tdap) CERVICAL CANCER SCREENING 09/22/2009 INFLUENZA VACCINE 02/12/2019 Results Not on filefrom Last 3 Months Insurance Type Payer Benefit Subscriber ID Effective Phone Address Plan / Dates Group Medicaid [place] [employer] xxxxxxxxxxx [id number] [facility] Advance Directives Patient Manager Float Explanation Type Date Recorded Advance Directive/DPOA
--- OUTSIDE RECORDS SUMMARY | 2018-11-30 17:19 | XMS REPORT | Continuity of Care Document ---
Author Organization Unknown Address Unknown Allergies Active Description Code Type Severity Reaction Onset Reported/Identified Relationship to Patient Clinical Status Yes metoclopramide [id number] Drug Allergy Unknown "CAUSES PT TO L 11/12/2013 Yes gabapentin [id number] Drug Allergy Unknown N/A 06/20/2018 Medications There [...] MD Ot V72.84 EXAM PRE-OPERATIVE NOS 06/20/2018 MONICA STANTON MD Ot F32.9 MAJOR DEPRESSIVE DISORDER, SINGLE EPISOD 06/20/2018 MONICA STANTON MD, Ot F41.9 ANXIETY DISORDER, UNSPECIFIED 06/20/2018 MONICA STANTON MD Ot G43.909 MIGRAINE, UNSP, NOT INTRACTABLE, WITHOUT [...] INI 06/20/2018 MONICA STANTON MD, Ot Z79.51 HEEL TURNER (CURRENT) USE OF INHALED STERO 06/20/2018 MONICA STANTON MD, Ot Z79.52 SNF (CURRENT) USE OF SYSTEMIC STER 06/20/2018 MONICA [...] INI 06/21/2018 MONICA STANTON MD, Ot Z79.51 HEEL TURNER (CURRENT) USE OF INHALED STERO 06/21/2018 MONICA STANTON MD, Ot Z79.52 SNF (CURRENT) USE OF SYSTEMIC STER 06/21/2018 MONICA STANTON MD, Ot Z87.448 PERSONAL HISTORY OF OTHER DISEASES OF UR 06/21/2018 MONICA STANTON MD, Ot Z88.8 ALLERGY STATUS TO OTH DRUG/MEDS/BIOL SUB 06/21/2018 MONICA STANTON MD, Ot Z90.710 ACQUIRED ABSENCE OF BOTH CERVIX AND UTER 06/21/2018 ROMY VENEGAS, MONICA Miguel Ot Z96.22 MYRINGOTOMY TUBE(S) STATUS 06/21/2018 MONICA STANTON MD Ot Z98.51 TUBAL LIGATION STATUS 08/20/2018 LEIGH ANGEL MD, Ot F32.9 MAJOR DEPRESSIVE DISORDER, SINGLE EPISOD 08/20/2018 LEIGH ANGEL MD, Ot F41.9 ANXIETY DISORDER, UNSPECIFIED 08/20/2018 LEIGH ANGEL MD Ot G40.909 EPILEPSY, UNSP, NOT INTRACTABLE, WITHOUT 08/20/2018 LEIGH ANGEL MD, Ot G43.909 MIGRAINE, UNSP, NOT INTRACTABLE, WITHOUT 08/20/2018 LEIGH ANGEL MD, Ot J44.9 CHRONIC OBSTRUCTIVE PULMONARY DISEASE, U 08/20/2018 LEIGH ANGEL MD, Ot M41.9 SCOLIOSIS, UNSPECIFIED 08/20/2018 LEIGH ANGEL MD, Ot Q05.9 SPINA BIFIDA, UNSPECIFIED 08/20/2018 LEIGH ANGEL MD Ot R10.32 LEFT LOWER QUADRANT PAIN 08/20/2018 LEIGH ANGEL MD, Ot Z79.51 SNF (CURRENT) USE OF INHALED STERO 08/20/2018 LEIGH ANGEL MD, Ot Z79.52 HEEL TURNER (CURRENT) USE OF SYSTEMIC STER 08/20/2018 LEIGH ANGEL MD, Ot Z87.442 PERSONAL HISTORY OF URINARY CALCULI 08/20/2018 LEIGH ANGEL MD, Ot Z87.448 PERSONAL HISTORY OF OTHER DISEASES OF UR 08/20/2018 LEIGH ANGEL MD, Ot Z88.8 ALLERGY STATUS TO OT DRUG/MEDS/BIOL SUB 08/20/2018 LEIGH ANGEL MD, Ot Z90.710 ACQUIRED ABSENCE OF BOTH CERVIX AND UTER 08/20/2018 LEIGH ANGEL MD, Ot Z98.51 TUBAL LIGATION STATUS 08/20/2018 LEIGH ANGEL MD, Ot Z98.890 OTHER SPECIFIED POSTPROCEDURAL STATES 08/22/2018 LEIGH ANGEL MD, Ot F32.9 MAJOR DEPRESSIVE DISORDER, SINGLE EPISOD 08/22/2018 LEIGH ANGEL MD, Ot F41.9 ANXIETY DISORDER, UNSPECIFIED 08/22/2018 LEIGH ANGEL MD, Ot G40.909 EPILEPSY, UNSP, NOT INTRACTABLE, WITHOUT 08/22/2018 LEIGH ANGEL MD, Ot G43.909 MIGRAINE, UNSP, NOT INTRACTABLE, WITHOUT 08/22/2018 LEIGH ANGEL MD, Ot J44.9 CHRONIC OBSTRUCTIVE PULMONARY DISEASE, U 08/22/2018 LEIGH ANGEL MD, Ot M41.9 SCOLIOSIS, UNSPECIFIED 08/22/2018 LEIGH ANGEL MD, Ot Q05.9 SPINA BIFIDA, UNSPECIFIED 08/22/2018 LEIGH ANGEL MD, Ot R10.32 LEFT LOWER QUADRANT PAIN 08/22/2018 LEIGH ANGEL MD, Ot Z79.51 SNF (CURRENT) USE OF INHALED STERO 08/22/2018 LEIGH ANGEL MD, Ot Z79.52 SNF (CURRENT) USE OF SYSTEMIC STER 08/22/2018 LEIGH ANGEL MD, Ot Z87.442 PERSONAL HISTORY OF URINARY CALCULI 08/22/2018 LEIGH ANGEL MD, Ot Z87.448 PERSONAL HISTORY OF OTHER DISEASES OF UR 08/22/2018 LEIGH ANGEL MD, Ot Z88.8 ALLERGY STATUS TO OT DRUG/MEDS/BIOL SUB 08/22/2018 LEIGH ANGEL MD, Ot Z90.710 ACQUIRED ABSENCE OF BOTH CERVIX AND UTER 08/22/2018 LEIGH ANGEL MD, Ot Z98.51 TUBAL LIGATION STATUS 08/22/2018 LEIGH ANGEL MD, Ot Z98.890 OTHER SPECIFIED POSTPROCEDURAL STATES 09/27/2018 LIZZ HERRERA DO, Ot F17.210 NICOTINE DEPENDENCE, CIGARETTES, UNCOMPL 09/27/2018 LIZZ HERRERA DO, Ot F32.9 MAJOR DEPRESSIVE DISORDER, SINGLE EPISOD 09/27/2018 LIZZ HERRERA DO, Ot F41.9 ANXIETY DISORDER, UNSPECIFIED 09/27/2018 LIZZ HERRERA DO, Ot G40.909 EPILEPSY, UNSP, NOT INTRACTABLE, WITHOUT 09/27/2018 LIZZ HERRERA DO, Ot G43.909 MIGRAINE, UNSP, NOT INTRACTABLE, WITHOUT 09/27/2018 LIZZ HERRERA DO, Ot J44.9 CHRONIC OBSTRUCTIVE PULMONARY DISEASE, U 09/27/2018 LIZZ HERRERA DO, Ot K21.9 GASTRO- ESOPHAGEAL REFLUX DISEASE WITHOUT 09/27/2018 LIZZ HERRERA DO, Ot M41.9 SCOLIOSIS, UNSPECIFIED 09/27/2018 SHARON BYRNES LIZZ Ot Q05.9 SPINA BIFIDA, UNSPECIFIED 09/27/2018 SHARON BYRNES LIZZ Ot R10.2 PELVIC AND PERINEAL PAIN 09/27/2018 SHARON BYRNESLIZZ Ot Z87.19 PERSONAL HISTORY OF OTHER DISEASES OF TH 09/27/2018 SHARON BYRNES LIZZ Ot Z87.442 PERSONAL HISTORY OF URINARY CALCULI 09/27/2018 SHARON BYRNESLIZZ Ot Z88.8 ALLERGY STATUS TO OT DRUG/MEDS/BIOL SUB 09/27/2018 SHARON BYRNESLIZZ Ot Z90.710 ACQUIRED ABSENCE OF BOTH CERVIX AND UTER 09/27/2018 SHARON BYRNESLIZZ Ot Z98.51 TUBAL LIGATION STATUS 09/27/2018 SHARON BYRNESLIZZ Ot Z98.890 OTHER SPECIFIED POSTPROCEDURAL STATES 11/08/2018 MAYKEL CUMMINS APRN Ot R10.30 LOWER ABDOMINAL PAIN, UNSPECIFIED 11/08/2018 MAYKEL CUMMINS DE ALCHOLIZER Ot Z90.49 ACQUIRED ABSENCE OF OTHER SPECIFIED PART 11/22/2018 MAYKEL CUMMINS DE ALCHOLIZER Ot R10.30 LOWER ABDOMINAL PAIN, UNSPECIFIED 11/22/2018 MAYKEL CUMMINS DE ALCHOLIZER Ot Z90.49 ACQUIRED ABSENCE OF OTHER SPECIFIED PART Procedures There is no data. Results Test Result Range Methicillin resistant Staphylococcus aureus (MRSA) screening culture - 04/14/16 06:45 Methicillin resistant Staphylococcus aureus (MRSA) screening culture NEG NRG Complete blood count (CBC) with automated white blood cell (WBC) differential - 09/25/18 00:53 Blood leukocytes automated count (number/volume) 12.8 10*3/uL 4.3-11.0 Blood erythrocytes automated count (number/volume) 4.18 10*6/uL 4.35-5.85 Venous blood hemoglobin measurement (mass/volume) 12.5 g/dL 11.5-16.0 Blood hematocrit (volume fraction) 37 % 35-52 Automated erythrocyte mean corpuscular volume 88 [foz_us] 80-99 Automated erythrocyte mean corpuscular hemoglobin (mass per erythrocyte) 30 pg 25-34 Automated erythrocyte mean corpuscular hemoglobin concentration measurement (mass/volume) 34 g/dL 32-36 Automated erythrocyte distribution width ratio 13.4 % 10.0- 14.5 Automated blood platelet count (count/volume) 393 10*3/uL 130-400 Automated blood platelet mean volume measurement 9.5 [foz_us] 7.4-10.4 Automated blood neutrophils/100 leukocytes 56 % 42-75 Automated blood lymphocytes/100 leukocytes 37 % 12-44 Blood monocytes/100 leukocytes 5 % 0-12 Automated blood eosinophils/100 leukocytes 2 % 0-10 Automated blood basophils/100 leukocytes 1 % 0-10 Blood neutrophils automated count (number/volume) 7.2 10*3 1.8-7.8 Blood lymphocytes automated count (number/volume) 4.7 10*3 1.0-4.0 Blood monocytes automated count (number/volume) 0.6 10*3 0.0- 1.0 Automated eosinophil count 0.2 10*3/uL 0.0-0.3 Automated blood basophil count (count/volume) 0.1 10*3/uL 0.0-0.1 Comprehensive metabolic panel - 09/25/18 00:53 Serum or plasma sodium measurement (moles/volume) 142 mmol/L 135-145 Serum or plasma potassium measurement (moles/volume) 3.4 mmol/L 3.6-5.0 Serum or plasma chloride measurement (moles/volume) 103 mmol/L 98-107 Carbon dioxide 21 mmol/L 21-32 Serum or plasma anion gap determination (moles/volume) 18 mmol/L 5-14 Serum or plasma urea nitrogen measurement (mass/volume) 5 mg/dL 7-18 Serum or plasma creatinine measurement (mass/volume) 0.63 mg/dL 0.60-1.30 Serum or plasma urea nitrogen/creatinine mass ratio 8 NRG Serum or plasma creatinine measurement with calculation of estimated glomerular filtration rate > NRG Serum or plasma glucose measurement (mass/volume) 104 mg/dL 70-105 Serum or plasma calcium measurement (mass/volume) 8.7 mg/dL 8.5-10.1 Serum or plasma total bilirubin measurement (mass/volume) 0.2 mg/dL 0.1-1.0 Serum or plasma alkaline phosphatase measurement (enzymatic activity/volume) 112 U/L 40-136 Serum or plasma aspartate aminotransferase measurement (enzymatic activity/volume) 27 U/L 5-34 Serum or plasma alanine aminotransferase measurement (enzymatic activity/volume) 28 U/L 0-55 Serum or plasma protein measurement (mass/volume) 6.9 g/dL 6.4-8.2 Serum or plasma albumin measurement (mass/volume) 4.0 g/dL 3.2-4.5 CALCIUM CORRECTED 8.7 mg/dL 8.5-10.1 Complete urinalysis with reflex to culture - 09/25/18 01:33 Urine color determination YELLOW NRG Urine clarity determination SLT CLOUDY NRG Urine pH measurement by test strip 6.5 5-9 Specific gravity of urine by test strip 1.025 1.016-1.022 Urine protein assay by test strip, semi-quantitative TRACE NEGATIVE Urine glucose detection by automated test strip NEGATIVE NEGATIVE Erythrocytes detection in urine sediment by light microscopy TRACE NEGATIVE Urine ketones detection by automated test strip NEGATIVE NEGATIVE Urine nitrite detection by test strip NEGATIVE NEGATIVE Urine total bilirubin detection by test strip NEGATIVE NEGATIVE Urine urobilinogen measurement by automated test strip (mass/volume) 0.2 mg/dL NORMAL Urine leukocyte esterase detection by dipstick NEGATIVE NEGATIVE Automated urine sediment erythrocyte count by microscopy (number/high power field) [HPF] NRG Automated urine sediment leukocyte count by microscopy (number/high power field) [HPF] NRG Bacteria detection in urine sediment by light microscopy NEGATIVE NRG Squamous epithelial cells detection in urine sediment by light microscopy 10-25 NRG Crystals detection in urine sediment by light microscopy NONE NRG Casts detection in urine sediment by light microscopy NONE NRG Mucus detection in urine sediment by light microscopy SMALL NRG Complete urinalysis with reflex to culture NO NRG PDM - 09 PANEL (PROFILE 1) - 11/07/18 10:05 Prescribed Drug 1 Klonopin(TM) NRG Creatinine 27.0 mg/dL > or=20.0 pH 6.54 4.5 - 9.0 Oxidant NEGATIVE mcg/mL <200 Amphetamines NEGATIVE ng/mL <500 medMATCH Amphetamines CONSISTENT NRG Benzodiazepines NEGATIVE CONFIRMED ng/mL <100 Marijuana Metabolite NEGATIVE ng/mL <20 medMATCH Marijuana Metab CONSISTENT NRG Cocaine Metabolite NEGATIVE ng/mL <150 medMATCH Cocaine Metab CONSISTENT NRG Opiates NEGATIVE ng/mL <100 medMATCH Opiates CONSISTENT NRG Oxycodone NEGATIVE ng/mL <100 medMATCH Oxycodone CONSISTENT NRG COMMENT NRG Alphahydroxyalprazolam NEGATIVE ng/mL <25 medMATCH aOH alprazolam CONSISTENT NRG Alphahydroxymidazolam NEGATIVE ng/mL <50 medMATCH aOH midazolam CONSISTENT NRG Alphahydroxytriazolam NEGATIVE ng/mL <50 medMATCH aOH triazolam CONSISTENT NRG Aminoclonazepam NEGATIVE ng/mL <25 medMATCH Aminoclonazepam INCONSISTENT NRG Hydroxyethylflurazepam NEGATIVE ng/mL <50 medMATCH OH,Et flurazepam CONSISTENT NRG Lorazepam NEGATIVE ng/mL <50 medMATCH Lorazepam CONSISTENT NRG Nordiazepam NEGATIVE ng/mL <50 medMATCH Nordiazepam CONSISTENT NRG Oxazepam NEGATIVE ng/mL <50 medMATCH Oxazepam CONSISTENT NRG Temazepam NEGATIVE ng/mL <50 medMATCH Temazepam CONSISTENT NRG Barbiturates NEGATIVE ng/mL <300 medMATCH Barbiturates CONSISTENT NRG Methadone Metabolite NEGATIVE ng/mL <100 medMATCH Methadone Metab CONSISTENT NRG Phencyclidine NEGATIVE ng/mL <25 medMATCH Phencyclidine CONSISTENT NRG PDM - 09 PANEL (PROFILE 1) - 11/20/18 16:10 Prescribed Drug 1 Klonopin(TM) NRG Creatinine 187.7 mg/dL > or=20.0 pH 7.08 4.5 - 9.0 Oxidant NEGATIVE mcg/mL <200 Amphetamines NEGATIVE ng/mL <500 medMATCH Amphetamines CONSISTENT NRG Benzodiazepines TNP ng/mL NRG Marijuana Metabolite NEGATIVE ng/mL <20 medMATCH Marijuana Metab CONSISTENT NRG Cocaine Metabolite NEGATIVE ng/mL <150 medMATCH Cocaine Metab CONSISTENT NRG Opiates NEGATIVE ng/mL <100 medMATCH Opiates CONSISTENT NRG Oxycodone NEGATIVE ng/mL <100 medMATCH Oxycodone CONSISTENT NRG COMMENT NRG Barbiturates NEGATIVE ng/mL <300 medMATCH Barbiturates CONSISTENT NRG Methadone Metabolite NEGATIVE ng/mL <100 medMATCH Methadone Metab CONSISTENT NRG Phencyclidine NEGATIVE ng/mL <25 medMATCH Phencyclidine CONSISTENT NRG PDM - 09 PANEL (PROFILE 1) - 11/22/18 11:26 Prescribed Drug 1 Klonopin(TM) NRG Creatinine 80.5 mg/dL > or=20.0 pH 7.16 4.5 - 9.0 Oxidant NEGATIVE mcg/mL <200 Amphetamines NEGATIVE ng/mL <500 medMATCH Amphetamines CONSISTENT NRG Benzodiazepines POSITIVE ng/mL <100 Marijuana Metabolite NEGATIVE ng/mL <20 medMATCH Marijuana Metab CONSISTENT NRG Cocaine Metabolite NEGATIVE ng/mL <150 medMATCH Cocaine Metab CONSISTENT NRG Opiates NEGATIVE ng/mL <100 medMATCH Opiates CONSISTENT NRG Oxycodone NEGATIVE ng/mL <100 medMATCH Oxycodone CONSISTENT NRG COMMENT NRG Alphahydroxyalprazolam NEGATIVE ng/mL <25 medMATCH aOH alprazolam CONSISTENT NRG Alphahydroxymidazolam NEGATIVE ng/mL <50 medMATCH aOH midazolam CONSISTENT NRG Alphahydroxytriazolam NEGATIVE ng/mL <50 medMATCH aOH triazolam CONSISTENT NRG Aminoclonazepam 27 ng/mL <25 medMATCH Aminoclonazepam CONSISTENT NRG Hydroxyethylflurazepam NEGATIVE ng/mL <50 medMATCH OH,Et flurazepam CONSISTENT NRG Lorazepam NEGATIVE ng/mL <50 medMATCH Lorazepam CONSISTENT NRG Nordiazepam NEGATIVE ng/mL <50 medMATCH Nordiazepam CONSISTENT NRG Oxazepam NEGATIVE ng/mL <50 medMATCH Oxazepam CONSISTENT NRG Temazepam NEGATIVE ng/mL <50 medMATCH Temazepam CONSISTENT NRG Barbiturates NEGATIVE ng/mL <300 medMATCH Barbiturates CONSISTENT NRG Methadone Metabolite NEGATIVE ng/mL <100 medMATCH Methadone Metab CONSISTENT NRG Phencyclidine NEGATIVE ng/mL <25 medMATCH Phencyclidine CONSISTENT NRG Complete urinalysis with reflex to culture - 11/30/18 00:55 Urine color determination YELLOW NRG Urine clarity determination CLEAR NRG Urine pH measurement by test strip 6.0 5-9 Specific gravity of urine by test strip 1.020 1.016-1.022 Urine protein assay by test strip, semi-quantitative NEGATIVE NEGATIVE Urine glucose detection by automated test strip NEGATIVE NEGATIVE Erythrocytes detection in urine sediment by light microscopy 1+ NEGATIVE Urine ketones detection by automated test strip NEGATIVE NEGATIVE Urine nitrite detection by test strip NEGATIVE NEGATIVE Urine total bilirubin detection by test strip NEGATIVE NEGATIVE Urine urobilinogen measurement by automated test strip (mass/volume) 0.2 mg/dL NORMAL Urine leukocyte esterase detection by dipstick NEGATIVE NEGATIVE Automated urine sediment erythrocyte count by microscopy (number/high power field) [HPF] NRG Automated urine sediment leukocyte count by microscopy (number/high power field) NONE NRG Bacteria detection in urine sediment by light microscopy FEW NRG Squamous epithelial cells detection in urine sediment by light microscopy 10-25 NRG Crystals detection in urine sediment by light microscopy NONE NRG Casts detection in urine sediment by light microscopy NONE NRG Mucus detection in urine sediment by light microscopy SMALL NRG Complete urinalysis with reflex to culture NO NRG Encounters ACCT No. Visit Date/Time Discharge Status Pt. Type Provider Facility Loc./Unit Complaint [id number] 11/29/2018 13:50:00 ACT Outpatient MAYKEL CUMMINS [facility] [id number] 11/22/2018 11:40:00 Document Registration [id number] 11/20/2018 16:00:00 Document Registration [id number] 11/07/2018 09:20:00 Document Registration [id number] 11/07/2018 09:50:00 11/07/2018 23:59:59 CLS Outpatient MAYKEL CUMMINS [facility] RAD FS R10.30 [id number] 09/25/2018 00:32:00 09/25/2018 02:50:00 DIS Outpatient LIZZ HERRERA DO [facility] ER FS RT SIDE ABD PAIN [id number] 08/19/2018 19:45:00 08/20/2018 00:05:00 DIS Emergency LEIGH ANGEL MD [facility] ER FS ABDOMINAL PAIN [id number] 06/19/2018 23:33:00 06/20/2018 02:10:00 DIS Emergency MONICA STANTON MD [facility] ER NECK,EAR PAIN [id number] 04/14/2016 06:34:00 04/14/2016 10:40:00 DIS Outpatient IBA JIMENEZ MD [facility] OTITIS MEDIA [id number] 04/12/2016 05:39:00 04/12/2016 09:48:00 DIS Outpatient BIA JIMENEZ MD [facility] PREOP OTITIS MEDIA [id number] 11/21/2013 07:57:00 11/21/2013 11:03:00 DIS Outpatient BIA JIMENEZ MD [facility] RIGHT OTITIS MEDIA [id number] 11/12/2013 07:20:00 11/12/2013 23:59:59 CLS Outpatient BIA JIMENEZ MD [facility] PREOP RIGHT OTITIS MEDIA [id number] 04/26/2013 05:39:00 04/26/2013 10:10:00 DIS Outpatient BIA JIMENEZ MD [facility] SDC OTITIS MEDIA [id number] 04/22/2013 14:24:00 04/22/2013 23:59:59 CLS Outpatient BIA JIMENEZ MD [facility] PREOP OTITIS MEDIA [id number] 11/30/2018 01:14:00 Document Registration
--- OUTSIDE RECORDS SUMMARY | 2018-11-30 17:19 | XMS REPORT | Encounter Summary ---
Author Author [facility] Organization [facility] Address Unknown Phone Unavailable Care Team Providers Care [place] Pinner Name Role Phone Norris Chavez MD Unavailable Robin Concepcion MD PCP Gurinder Antunez MD Unavailable Dwayne Davidson MD Unavailable Encounter Details Care Team Description Date Type Department uGrinder Antunez MD [address] [place], [place] [id number] 06/18/2018 Orders Only [facility] [address] [id number] Social History Date Tobacco Use Types Packs/Day [...] Guera Chandler RN - 06/18/2018 3:19 PM EMT/PARAMEDIC Patient is scheduled 06/20/[address] Antunez. Just received a call from Modesta @ [facility] and she states after medical case worker review this procedure has been d enied due to patient having received same procedure in the past without signific ant pain relief. She is working on finalizing the official denial letter now to fax over, so I will send that your way Guera once I receive it as its probab ly more detailed. Modesta went ahead in the meantime and provided me with the info fo r P2P and appeal. P2P and appeal options are both available by calling [phone] to initiate. CASE # [id number] if needed Please let me know how you choose to proceed so I can notate account and like I said as soon as I receive that denial letter I will send it your way! Procedure is BL L4-5 RFA. NO p2p because patient didn't get pain relief. Patient will continue to look for ways to help her pain. She will continue to ta ke nortriptyline and follow up in clinic. /PARAMEDIC documented in this encounter Plan of Treatment Not on filedocumented as of this encounter Visit Diagnoses Not on filedocumented in this encounter
== END 2018-11-30 01:38 | disposition home or self-care (01) ==
LOC: EDUNIT# 00:30 → ER FS 00:32
DX: M62.830 Muscle spasm of back (principal); J44.9 Chronic obstructive pulmonary disease, unspecified; G40.909 Epilepsy, unspecified, not intractable, without status epilepticus; G43.909 Migraine, unspecified, not intractable, without status migrainosus; F41.9 Anxiety disorder, unspecified; F32.9 Major depressive disorder, single episode, unspecified; Z87.442 Personal history of urinary calculi; Z90.710 Acquired absence of both cervix and uterus; Z88.8 Allergy status to other drugs, medicaments and biological substances; Z79.51 Long term (current) use of inhaled steroids; Z77.22 Contact with and (suspected) exposure to environmental tobacco smoke (acute) (chronic); Z98.51 Tubal ligation status; W19.XXXA Unspecified fall, initial encounter
CPT/HCPCS: 81000; 96372; 99284

== ENCOUNTER 2019-01-08 20:54 | Emergency (ER) | payer MEDICAID ==
[~2019-01-08] VITALS: Ht 152.4 cm; Wt 108.0 kg
[~2019-01-08 20:54] MED LIST changes: +MELO15TA14 PO
--- NOTE | 2019-01-08 22:24 | ED Headache ---
General Chief Complaint: Head/Cervical Problems Stated Complaint: HEAD ACHE, EAR PAIN Nursing Triage Note: martinez since yesterday with both ears hurting pt Nursing Sepsis Screen: No Definite Risk Source: patient History of Present Illness Date Seen by Provider: Jan 08, 2019 Time Seen by Provider: 22:24 Initial Comments 38-year-old female presenting with complaints of bilateral ear pain and frontal headache. She states that this all started for her yesterday and has progressed. She has had symptoms that have gotten better and worsened times in the last 48- 72 hours. She has had subjective fever and chills. She has had no drainage that she has seen out of her ears. She does have tubes in both eardrums. She has had a lot of problems with her ears in the past with frequent ear infections. She does have a history of migraine headaches as well but feels that this is different. She does not have any light sensitivity. Her blood pressure is up this evening as well but she is also in pain. She denies any numbness or tingling in her arms or legs. She has no chest pain or shortness of breath. She does have some drainage down the back of her throat. Allergies and Home Medications Allergies Coded Allergies: gabapentin (Verified Allergy, Unknown, 06/20/18) metoclopramide (Unverified Allergy, Unknown, "CAUSES PT TO LOSE CONTROL OF MUSCLES", 11/12/13) Home Medications Albuterol 8.5 Gm Hfa.aer.ad, 2 PUFF IH Q6H PRN for SHORTNESS OF BREATH, (Reported) PRN SHORTNESS OF BREATH Amoxicillin/Potassium Clav 1 Each Tablet, 1 EACH PO BID Prescribed by: LEIGH ANGEL on 01/08/19 2252 Ciprofloxacin HCl 5 Ml Drops, 3 DROPS EACH EAR BID Prescribed by: GAL FLYNN on 04/14/16 0950 Ethosuximide 250 Mg Capsule, 250 MG PO HS, (Reported) Fluticasone/Salmeterol 250 Mcg/50 Mcg Inh, 1 SPRAY IH BID, (Reported) Meloxicam 15 Mg Tablet, 15 MG PO Q6H Prescribed by: JESSENIA SOSA on 11/30/18 0103 Patient Home Medication List Home Medication List Reviewed: Yes Review of Systems Review of Systems Constitutional: chills (subjective), fever (subjective), malaise Eyes: Denies Blurred Vision, Denies Drainage, Denies Photophobia Ears, Nose, Mouth, Throat: ear pain (bilateral); denies ear discharge, denies nose discharge, denies epistaxis, denies mouth pain, denies mouth swelling, denies throat pain, denies throat swelling Respiratory: cough (chronic but has been a little worse in the last day or 2) Cardiovascular: No chest pain Gastrointestinal: no symptoms reported Genitourinary: no symptoms reported Musculoskeletal: no symptoms reported Skin: no symptoms reported Past Nqxfdrh-Urplnd-Gwtfhg Hx Past Med/Social Hx: Reviewed Nursing Past Med/Soc Hx Patient Social History Alcohol Use: Denies Use Recreational Drug Use: No Type Used: Cigarettes 2nd Hand Smoke Exposure: Yes Recent Foreign Travel: No Contact w/Someone Who Travel: No Recent Infectious Disease Expo: No Recent Hopitalizations: No Physical Abuse: No Sexual Abuse: No Mistreated: No Fear: No Immunizations Up To Date Tetanus Booster (TDap): Unknown Seasonal Allergies Seasonal Allergies: No Past Medical History Surgeries: Yes (dental extractions) Gallbladder, Hysterectomy, 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 Respiratory: Yes Asthma, COPD Cardiac: Yes Heart Murmur Neurological: Yes Headaches /Migraines, Seizure Disorder 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 Disorders: Yes Female 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 Disorders: 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 [employer]PER[employer]OR History: Hysterectomy, 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 Sexually Transmitted Disease: No Genitourinary: Yes Kidney Stones Gastrointestinal: No Gastroesophageal Reflux, Diverticulosis, Ulcer Musculoskeletal: Yes (spina bifida) Arthritis, Scoliosis, Chronic Back Pain Endocrine: No Chronic Ear Infection Hearing Impairment: Hard of Hearing Cancer: No Psychosocial: Yes Anxiety, Depression Integumentary: No Blood Disorders: No Physical Exam Vital Signs Vital Signs - First Documented 01/08/19 01/08/19 21:07 23:05 Temp 97.7 Pulse 98 Resp 18 B/P (MAP) 181/107 (131) Pulse Ox 95 O2 Delivery Room Air Capillary Refill : Less Than 3 Seconds Height, Weight, BMI Height: 5'0" Weight: 238lbs. 0oz. 107.388438an; 34.2 BMI Method:Stated General Appearance: WD/WN, mild distress HEENT: PERRL/EOMI; No photophobia; TM abnormal (R) (tympanostomy tube in place with effusion), TM abnormal (L) (tympanostomy tube in place with purulent effu derick), pharyngeal erythema; No tonsillar exudate; other (tender to palpation over the frontal sinuses) Neck: full range of motion, supple, normal inspection Cardiovascular: normal peripheral pulses, regular rate, rhythm Respiratory: chest non-tender, lungs clear, normal breath sounds, no respiratory distress, no accessory muscle use Gastrointestinal: normal bowel sounds, soft, no pulsatile mass Psychiatric: alert, oriented x 3 Crainal Nerves: PERRL Skin: normal color, warm/dry Progress/Results/Core Measures Results/Orders My Orders Orders - LEIGH ANGEL MD Ceftriaxone For Im Use (Rocephin For Im (01/08/19 22:47) Amoxicillin/Clavulanate Tablet (Augmenti (01/08/19 22:47) Lidocaine 1% Inj 20 Ml (Xylocaine 1% Inj (01/08/19 23:00) Medications Given in ED Current Medications Medications Dose Ordered Sig/Brissa Route Start Time Stop Time Status Last Admin Dose Admin Lidocaine HCl 2.1 ml ONCE ONCE INJ 01/08/19 23:00 01/08/19 23:01 DC 01/08/19 23:02 2.1 ML Vital Signs/I&O 01/08/19 01/08/19 21:07 23:05 Temp 97.7 Pulse 98 87 Resp 18 16 B/P (MAP) 181/107 (131) 155/92 (113) Pulse Ox 95 O2 Delivery Room Air Room Air Blood Pressure Mean: 131 Progress Progress Note : Progress Note With the purulent drainage from her tympanostomy tubes Will treat with antibiotics and have her use the antibiotic drops that she hasn't home from Dr. Ortiz. Give a Rocephin shot here as well as started on Augmentin Departure Impression Primary Impression: Recurrent suppurative otitis media of both ears Qualified Codes: H66.006 - Acute suppurative otitis media without spontaneous rupture of ear drum, recurrent, bilateral Additional Impression: Acute recurrent frontal sinusitis Disposition: HOME, SELF-CARE Condition: Stable Departure-Patient Inst. Decision time for Depature: 22:50 Referrals: [facility]/JENNIFER (PCP) Primary Care Physician MAYKEL CUMMINS APRN (Family) Primary Care Physician Patient Instructions: Serous Otitis Media (DC), Sinusitis, Adult (DC) Add. Discharge Instructions: use your ear drops from Dr. Ortiz to help flush out the infection in your ears and clear the ear tubes in the ear drums. Take the oral antibiotics to help treat for the sinus and ear infection Stay well hydrated and get plenty of rest Follow up with Dr. Ortiz or Primary provider for continued problems/concerns All discharge instructions reviewed with patient and/or family. Voiced understanding. Scripts Amoxicillin/Potassium Clav (Augmentin 875-125 Tablet) 1 Each Tablet 1 EACH PO BID for 10 Days, #20 TAB 0 Refills Prov: LEIGH ANGEL MD 01/08/19 LEIGH ANGEL MD Jan 08, 2019 22:24
[2019-01-08] MEDS ORDERED: cefTRIAXone 1,000 MG/2.86 ml vial (IM ONLY) IM STA (22:47)
[2019-01-08] MEDS ORDERED: AUGMENTIN 875 MG TAB (AMOXICILLIN/CLAVULANATE) PO STA (22:47)
[2019-01-08] MEDS ORDERED: AMOX-358 PO (22:52)
[2019-01-08] MEDS ORDERED: LIDOCAINE 1% INJ 20 ML 20 ML VIAL INJ ONE (23:00)
[2019-01-08 23:05] VITALS: BP 155/92
== END 2019-01-08 23:09 | disposition home or self-care (01) ==
LOC: EDUNIT# 20:54 → ER FS 20:55
DX: H66.43 Suppurative otitis media, unspecified, bilateral (principal); J01.91 Acute recurrent sinusitis, unspecified; G43.909 Migraine, unspecified, not intractable, without status migrainosus; J44.9 Chronic obstructive pulmonary disease, unspecified; G40.909 Epilepsy, unspecified, not intractable, without status epilepticus; K21.9 Gastro-esophageal reflux disease without esophagitis; F41.9 Anxiety disorder, unspecified; F32.9 Major depressive disorder, single episode, unspecified; Z87.19 Personal history of other diseases of the digestive system; Z88.8 Allergy status to other drugs, medicaments and biological substances; Z79.52 Long term (current) use of systemic steroids; Z77.22 Contact with and (suspected) exposure to environmental tobacco smoke (acute) (chronic); Z98.51 Tubal ligation status; Z90.710 Acquired absence of both cervix and uterus; Z96.22 Myringotomy tube(s) status
CPT/HCPCS: 99284

== ENCOUNTER 2019-01-15 00:06 | Emergency (ER) | payer MEDICAID ==
[~2019-01-15] VITALS: Ht 152.4 cm; Wt 106.6 kg
[~2019-01-15 00:06] MED LIST changes: +AMOX-358 PO
[2019-01-15] MEDS ORDERED: ONDANSETRON 4 MG/2 ML (SDV) Z0FRAN IVP STA (00:19)
[2019-01-15] MEDS ORDERED: NITROGLYCERIN 2% OINT 1 GM UNIT DOSE PACKET TOP STA (00:19)
--- NOTE | 2019-01-15 00:25 | ED Chest Pain ---
General Stated Complaint: CHEST PAIN LT ARM PAIN Source: patient History of Present Illness Date Seen by Provider: Jan 15, 2019 Time Seen by Provider: 00:06 Initial Comments 38 yo F presenting with left sided chest pain that radiates to her left arm. th is initially started around 1900. She denies doing anything when the pain started. She has mild cough and shortness of breath with it. she has no injury to her chest. she is on antibiotics for ear infection currently. she has not had pain like this before. she describes it as a squeezing or pressure in her chest that is occasionally sharp. She has it go into her back at times as well. She does have nausea with it and had emesis just prior to arrival in the ED. She has no known cardiac disease other than HTN. She has a family history of maternal grandparents with CAD. She is a smoker at to and 05/16 ppd. Allergies and Home Medications Allergies Coded Allergies: gabapentin (Verified Allergy, Unknown, 06/20/18) metoclopramide (Unverified Allergy, Unknown, "CAUSES PT TO LOSE CONTROL OF MUSCLES", 11/12/13) Home Medications Albuterol 8.5 Gm Hfa.aer.ad, 2 PUFF IH Q6H PRN for SHORTNESS OF BREATH, (Reported) PRN SHORTNESS OF BREATH Amoxicillin/Potassium Clav 1 Each Tablet, 1 EACH PO BID Prescribed by: LEIGH ANGEL on 01/08/19 2252 Ciprofloxacin HCl 5 Ml Drops, 3 DROPS EACH EAR BID Prescribed by: GAL FLYNN on 04/14/16 0950 Ethosuximide 250 Mg Capsule, 250 MG PO HS, (Reported) Fluticasone/Salmeterol 250 Mcg/50 Mcg Inh, 1 SPRAY IH BID, (Reported) Meloxicam 15 Mg Tablet, 15 MG PO Q6H Prescribed by: JESSENIA SOSA on 11/30/18 0103 Potassium Chloride 20 Meq Tablet.er, 20 MEQ PO DAILY Prescribed by: LEIGH ANGEL on 01/15/19516 Sucralfate 1 Gm/10 Ml Oral.susp, 1 GM PO TIDWM Prescribed by: LEIGH ANGEL on 01/15/19516 Patient Home Medication List Home Medication List Reviewed: Yes Review of Systems Review of Systems Constitutional: No chills, No fever EENTM: Ear Drainage, Ear Pain Respiratory: Cough, Shortness of Air Cardiovascular: See HPI Gastrointestinal: See HPI Genitourinary: Denies Burning, Denies Frequency Musculoskeletal: no symptoms reported Skin: no symptoms reported Psychiatric/Neurological: Anxiety Endocrine: No Symptoms Reported Past Ohicjks-Qxiibz-Amanac Hx Past Med/Social Hx: Reviewed Nursing Past Med/Soc Hx Patient Social History Type Used: Cigarettes 2nd Hand Smoke Exposure: Yes Recent Foreign Travel: No Contact w/Someone Who Travel: No Recent Hopitalizations: No Immunizations Up To Date Tetanus Booster (TDap): Unknown Seasonal Allergies Seasonal Allergies: No Past Medical History Surgeries: Yes (dental extractions) Gallbladder, Hysterectomy, 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 Respiratory: Yes Asthma, COPD Cardiac: Yes Heart Murmur Neurological: Yes Headaches /Migraines, Seizure Disorder 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 Disorders: Yes Female 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 Disorders: 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[employer] History: Hysterectomy, 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 Sexually Transmitted Disease: No Genitourinary: Yes Kidney Stones Gastrointestinal: No Gastroesophageal Reflux, Diverticulosis, Ulcer Musculoskeletal: Yes (spina bifida) Arthritis, Scoliosis, Chronic Back Pain Endocrine: No Chronic Ear Infection Hearing Impairment: Hard of Hearing Cancer: No Psychosocial: Yes Anxiety, Depression Integumentary: No Blood Disorders: No Physical Exam Vital Signs Vital Signs - First Documented 01/15/19 00:10 Temp 99.3 Pulse 117 Resp 20 B/P (MAP) 161/112 (128) Pulse Ox 99 O2 Delivery Room Air Capillary Refill : Height, Weight, BMI Height: 5'0" Weight: 238lbs. 0oz. 107.082077gq; 34.2 BMI Method:Stated General Appearance: Anxious, Moderate Distress (tearful and anxious complaining of left sided chest pain), Obese HEENT: PERRL/EOMI; No Moist Mucous Membranes (dry mucous membranes); Other (hard of hearing) Neck: Full Range of Motion, Normal Inspection, Non Tender, Supple Respiratory: Chest Non Tender, No Accessory Muscle Use, No Respiratory Distress, Decreased Breath Sounds, Wheezing Cardiovascular: Regular Rate, Rhythm, Normal Peripheral Pulses Gastrointestinal: Normal Bowel Sounds, No Pulsatile Mass, Non Tender, Soft Extremity: Normal Capillary Refill, Normal Inspection, Normal Range of Motion, Non Tender, No Calf Tenderness Neurologic/Psychiatric: Alert, Oriented x3, No Motor/Sensory Deficits Skin: Normal Color, Warm/Dry Focused Exam Lactate Level 01/15/19 02:30: Lactic Acid Level 1.08 Lactic Acid Level Laboratory Tests Test 01/15/19 02:30 Lactic Acid Level 1.08 MMOL/L (0.50-2.00) Progress/Results/Core Measures Results/Orders Lab Results Laboratory Tests Test 01/15/19 00:20 01/15/19 02:30 Range/Units White Blood Count 17.5 H 4.3-11.0 10^3/uL Red Blood Count 4.38 4.35-5.85 10^6/uL Hemoglobin 13.3 11.5-16.0 G/DL Hematocrit 39 35-52 % Mean Corpuscular Volume 90 80-99 FL Mean Corpuscular Hemoglobin 30 25-34 PG Mean Corpuscular Hemoglobin Concent 34 32-36 G/DL Red Cell Distribution Width 13.9 10.0-14.5 % Platelet Count 422 H 130-400 10^3/uL Mean Platelet Volume 10.0 7.4-10.4 FL Neutrophils (%) (Auto) 57 42-75 % Lymphocytes (%) (Auto) 36 12-44 % Monocytes (%) (Auto) 4 0-12 % Eosinophils (%) (Auto) 2 0-10 % Basophils (%) (Auto) 1 0-10 % Neutrophils # (Auto) 10.0 H 1.8-7.8 X 10^3 Lymphocytes # (Auto) 6.3 H 1.0-4.0 X 10^3 Monocytes # (Auto) 0.7 0.0-1.0 X 10^3 Eosinophils # (Auto) 0.3 0.0-0.3 10^3/uL Basophils # (Auto) 0.1 0.0-0.1 10^3/uL Neutrophils % (Manual) 57 % Lymphocytes % (Manual) 37 % Monocytes % (Manual) 5 % Eosinophils % (Manual) 1 % Band Neutrophils % Blood Morphology Comment NORMAL Prothrombin Time 12.9 12.2-14.7 SEC INR Comment 0.9 0.8-1.4 Activated Partial Thromboplast Time 24 24-35 SEC Sodium Level 141 135-145 MMOL/L Potassium Level 2.8 L 3.6-5.0 MMOL/L Chloride Level 102 98-107 MMOL/L Carbon Dioxide Level 22 21-32 MMOL/L Anion Gap 17 H 5-14 MMOL/L Blood Urea Nitrogen 8 7-18 MG/DL Creatinine 0.69 0.60-1.30 MG/DL Estimat Glomerular Filtration Rate > 60 BUN/Creatinine Ratio 12 Glucose Level 120 H 70-105 MG/DL Calcium Level 9.1 8.5-10.1 MG/DL Corrected Calcium 9.0 8.5-10.1 MG/DL Magnesium Level 1.9 1.6-2.4 MG/DL Total Bilirubin 0.2 0.1-1.0 MG/DL Aspartate Amino Transf (AST/SGOT) 30 5-34 U/L Alanine Aminotransferase (ALT/SGPT) 25 0-55 U/L Alkaline Phosphatase 133 40-136 U/L Troponin I < 0.30 <0.30 NG/ML Pro-B-Type Natriuretic Peptide 131.7 H <75.0 PG/ML Total Protein 7.7 6.4-8.2 GM/DL Albumin 4.1 3.2-4.5 GM/DL Lipase 28 8-78 U/L Lactic Acid Level 1.08 0.50-2.00 MMOL/L My Orders Orders - LEIGH ANGEL MD Cbc With Automated Diff (01/15/19 00:19) Magnesium (01/15/19 00:19) Chest 1 View Ap/Pa Only (01/15/19 00:19) Ekg Tracing (01/15/19 00:19) Comprehensive Metabolic Panel (01/15/19:19) Protime With Inr (01/15/19 00:19) Partial Thromboplastin Time (01/15/19 00:19) O2 (01/15/19 00:19) Monitor-Rhythm Ecg Trace Only (01/15/19 00:19) Aspirin Chewable Tablet (Baby Aspirin Ch (01/15/19 00:30) Ed Iv/Invasive Line Start (01/15/19 00:19) Lipase (01/15/19 00:19) Troponin I (01/15/19 00:19) Probnp Fs (01/15/19 00:19) Nitroglycerin Ointment (Nitrobid Ointme (01/15/19 00:19) Ondansetron Injection (Zofran Injectio (01/15/19 00:19) Albuterol/Ipra Inhalation Soln (Duoneb I (01/15/19 00:47) Albuterol/Ipra Inhalation Soln (Duoneb I (01/15/19 01:00) Svn Small Volume Nebulizer (01/15/19 00:58) Manual Differential (01/15/19 00:20) Ekg Tracing (01/15/19 01:10) Fentanyl Injection (Sublimaze Injection (01/15/19 01:12) Metoprolol Tartrate Injection (Lopressor (01/15/19 01:12) Potassium Cl 10meq/50ml Ivpb (Kcl 10 Meq (01/15/19 02:00) Metoprolol Tartrate Injection (Lopressor (01/15/19 02:00) Hydromorphone Injection (Dilaudid Inject (01/15/19 02:30) Blood Culture (01/15/19 02:28) Lactic Acid Analyzer (01/15/19 02:28) Ns Iv 1000 Ml (Sodium Chloride 0.9%) (01/15/19 02:45) Ns Iv 1000 Ml (Sodium Chloride 0.9%) (01/15/19 02:28) Ct Angio Chest W (01/15/19 02:49) Iohexol Injection (Omnipaque 350 Mg/Ml 1 (01/15/19 03:15) Received Contrast (Hold Metformin- Contr (01/15/19 03:15) Sodium Chloride Flush (Catheter Flush Sy (01/15/19 03:15) Ns (Ivpb) (Sodium Chloride 0.9% Ivpb Bag (01/15/19 03:15) Pantoprazole Injection (Protonix Injecti (01/15/19 05:04) Sucralfate Tablet (Carafate Tablet) (01/15/19 05:04) Lidocaine 2% Viscous 15 Ml (Xylocaine Vi (01/15/19 05:15) Antacid Suspension (Mylanta Suspension (01/15/19 05:15) Medications Given in ED Current Medications Medications Dose Ordered Sig/Brissa Route Start Time Stop Time Status Last Admin Dose Admin Albuterol/ Ipratropium 3 ml ONCE ONCE INH 01/15/19 01:00 01/15/19 01:01 DC 01/15/19 01:00 3 ML Aspirin 324 mg ONCE ONCE PO 01/15/19 00:30 01/15/19 00:31 DC 01/15/19 00:29 324 MG Hydromorphone HCl 0.5 mg ONCE ONCE IV 01/15/19 02:30 01/15/19 02:31 DC 01/15/19 02:41 0.5 MG Iohexol 150 ml ONCE ONCE IV 01/15/19 03:15 01/15/19 03:16 UNV 01/15/19 03:41 125 ML Metoprolol Tartrate 5 mg ONCE ONCE IV 01/15/19 02:00 01/15/19 02:02 DC 01/15/19 02:14 5 MG Potassium Chloride 50 ml @ 50 mls/hr ONCE ONCE IV 01/15/19 02:00 01/15/19 02:59 DC 01/15/19 02:14 50 MLS/HR Sodium Chloride 100 ml ONCE ONCE IV 01/15/19 03:15 01/15/19 03:16 UNV 01/15/19 03:42 100 ML Vital Signs/I&O 01/15/19 00:10 Temp 99.3 Pulse 117 Resp 20 B/P (MAP) 161/112 (128) Pulse Ox 99 O2 Delivery Room Air Progress Progress Note #1: Progress Note Check labs with ECG and CXR. ECG does not show acute ST elevation . She has no prior tracing for comparison. She is hypertensive and anxious will try treating her nausea and use NTG paste for her BP and pain. Aspirin 324 mg po for her pain and hypertension. Zofran for her nausea Progress Note #2: Progress Note pt still anxious and complaining of pain. will give Fentanyl for pain and see if that helps her symptoms. Try Duoneb breathing treatment and repeat ECG with her saying that the pain is worse. Repeat ECG appears the same or better than her initial ECG tracing. Progress Note #3: Progress Note Patient was still complaining of pain in her chest. She was tearful and saying that nothing was helping. Her labs have all come back negative for acute coronary syndrome with negative troponin after having pain since 7 PM. She has nothing acute on my review of her 1 view chest x-ray. Her white blood cell count has been elevated with her having a source of infection with the ear infection. Since she does have chest pain as well as this elevated white count will add on a lactic acid, blood cultures, CT scan of her chest to evaluate for possible pulmonary with some more acute process that might be causing her pain. Progress Note #4: Progress Note CTA chest read out as no acute process. Her blood pressure, Cardiac enzymes, labs, CT scan and ECG have all come back without acute abnormality for her symptoms. Will recheck on pt but she may be having esophageal spasms or GI source of pain since cardiac and pulmonary have been ruled out with negative enzymes after constant pain for over 5 hours and negative CTA chest. Progress Note #5: Progress Note Plan reviewing results with the patient and her mother she states that she has been having a lot more reflux symptoms and is actually scheduled to see a GI doctor in [place] because of them. We will add and Protonix as well as Carafate and a GI cocktail here. Have her follow-up with the GI doctor in [place] as scheduled and check back with the clinic for continued concerns. Initial ECG Impression Date: Jan 15, 2019 Initial ECG Impression Time: 00:10 Initial ECG Rate: 104 Initial ECG Rhythm: S.Tach Initial ECG Comparisson: No Previous ECG Available Comment Sinus tachycardia with a heart rate of 104 beats for minute. She has borderline left axis deviation. Her LA interval was 155 ms. She has global T-wave flattening. Her QT interval is 369 ms with a QT corrected interval 486 ms. There is no prior tracing for comparison. EKG : EKG Time: 01:04 Rate: 96 Rhythm: Normal Sinus Comment Normal sinus rhythm with heart rate 96 bpm. LA interval of 164 ms. QT interval 367 ms and a QT corrected interval 464 ms. There is no acute ST elevation. Her T-wave flattening has improved from the prior tracing. Diagnostic Imaging Diagonstic Imaging: Xray Plain Films/CT/US/NM/MRI: chest Comments On my review of her 1 view chest x-ray she has no acute process. There is no effusion or infiltrate. She has no cardiomegaly. This appears similar to prior film included with an acute abdomen series. Reviewed: Reviewed by Me Diagonstic Imaging: CT Plain Films/CT/US/NM/MRI: chest Comments No acute intrathoracic findings. No pulmonary embolism. No enlarged lymph nodes. No pneumothorax or consolidation. Radiologist Dr. Star Robbins M.D. Read at [id number] and faxed at [phone] Reviewed: Reviewed Night [facility] Study Departure Impression Primary Impression: Diffuse esophageal spasm Additional Impressions: Non-cardiac chest pain Hypokalemia Disposition: HOME, SELF-CARE Condition: Stable Departure-Patient Inst. Decision time for Depature: 05:10 Referrals: [facility]/JENNIFER (PCP) Primary Care Physician MAYKEL CUMMINS APRN (Family) Primary Care Physician Patient Instructions: Acid Reflux (Gastroesophageal Reflux Disease), Adult (DC), Chest Pain That Is Not Caused by the Heart (DC), Hypokalemia (DC) Add. Discharge Instructions: Continue on your Omeprazole for acid reflux. Take Sucralfate or Carafate as well to help give additional benefit for your acid reflux. Follow up with GI doctor in [place] as soon as possible for further evaluation as they may need to do an EGD or scope to look for an ulcer or see why your acid reflux is causing you so much problem Take Potassium supplement to help bring your potassium levels up since they were low at 2.8 tonight. Scripts Potassium Chloride (K-Tab ER) 20 Meq Tablet.er 20 MEQ PO DAILY for hypokalemia for 7 Days, #7 TAB 0 Refills Prov: LEIGH ANGEL MD 01/15/19 Sucralfate (Carafate) 1 Gm/10 Ml Oral.susp 1 GM PO TIDWM for acid reflux for 15 Days, #450 ML 0 Refills Prov: LEIGH ANGEL MD 01/15/19 LEIGH ANGEL MD Jan 15, 2019 00:25
[2019-01-15] MEDS ORDERED: ASPIRIN 81 MG CHEW (CHILDREN'S ASA) PO ONE (00:30)
[2019-01-15] MEDS ORDERED: RT-ALBUTEROL/IPRATROPIUM 3 ML (DUONEB) VIAL ONE (00:47)
[2019-01-15 00:58] LABS: BASOPHILS # (AUTO) 0.1 10^3/uL (0.0-0.1); BASOPHILS % (AUTO) 1 % (0-10); EOSINOPHILS # (AUTO) 0.3 10^3/uL (0.0-0.3); EOSINOPHILS % (AUTO) 2 % (0-10); HEMATOCRIT 39 % (35-52); HEMOGLOBIN 13.3 G/DL (11.5-16.0); LYMPHOCYTES # (AUTO) 6.3 X 10^3 (1.0-4.0); LYMPHOCYTES % (AUTO) 36 % (12-44); MEAN CORPUSCULAR HEMOGLOBIN 30 PG (25-34); MEAN CORPUSCULAR HGB CONC 34 G/DL (32-36); MEAN CORPUSCULAR VOLUME 90 FL (80-99); MONOCYTES # (AUTO) 0.7 X 10^3 (0.0-1.0); MONOCYTES % (AUTO) 4 % (0-12); NEUTROPHILS % (AUTO) 57 % (42-75); PLATELET COUNT 422 10^3/uL (130-400); RED CELL DISTRIBUTION WIDTH 13.9 % (10.0-14.5); WHITE BLOOD COUNT 17.5 10^3/uL (4.3-11.0)
[2019-01-15] MEDS ORDERED: RT-ALBUTEROL/IPRATROPIUM 3 ML (DUONEB) VIAL INH ONE (01:00)
[2019-01-15 01:09] LABS: EOSINOPHILS % (MANUAL) 1 %; LYMPHOCYTES % (MANUAL) 37 %; MONOCYTES % (MANUAL) 5 %; NEUTROPHILS % (MANUAL) 57 %
[2019-01-15 01:10] LABS: RBC MORPH NORMAL
[2019-01-15] MEDS ORDERED: fentaNYL INJECTION 100 MCG/2 ML AMP IVP STA (01:12)
[2019-01-15] MEDS ORDERED: meTOprolol 5 MG/5 ML (LOPRESSOR) VIAL IV STA (01:12)
[2019-01-15 01:13] LABS: BILIRUBIN,TOTAL 0.2 MG/DL (0.1-1.0); BUN/CREATININE RATIO 12; CALCIUM 9.1 MG/DL (8.5-10.1); CARBON DIOXIDE 22 MMOL/L (21-32); CHLORIDE 102 MMOL/L (98-107); CREATININE SERUM 0.69 MG/DL (0.60-1.30); GFR ESTIMATED > 60; GLUCOSE 120 MG/DL (70-105); MAGNESIUM 1.9 MG/DL (1.6-2.4); POTASSIUM 2.8 MMOL/L (3.6-5.0); SODIUM 141 MMOL/L (135-145)
[2019-01-15 01:14] LABS: ALANINE AMINOTRANSFERASE 25 U/L (0-55); ALBUMIN 4.1 GM/DL (3.2-4.5); ALKALINE PHOSPHATASE 133 U/L (40-136); LIPASE 28 U/L (8-78); TOTAL PROTEIN 7.7 GM/DL (6.4-8.2)
[2019-01-15 01:17] LABS: INR 0.9 (0.8-1.4); PROTHROMBIN TIME PATIENT 12.9 SEC (12.2-14.7)
[2019-01-15] MEDS ORDERED: meTOprolol 5 MG/5 ML (LOPRESSOR) VIAL IV ONE (02:00)
[2019-01-15] MEDS ORDERED: POTASSIUM CL 10MEQ/50ML IVPB 50 ML IV ONE (02:00)
[2019-01-15] MEDS ORDERED: NS IV 1000 ML 1,000 ML ONE (02:28)
[2019-01-15] MEDS ORDERED: HYDROmorphone 2 MG/ML VIAL (DILAUDID) IV ONE (02:30)
[2019-01-15] MEDS ORDERED: NS IV 1000 ML 1,000 ML IV SCH (02:45)
[2019-01-15] MEDS ORDERED: HOLD METFORMIN - RECEIVED CONTRAST 20 ML VIAL IV SCH (03:15)
[2019-01-15] MEDS ORDERED: CATHETER FLUSH 10 ML SYR IV PRN (03:15)
[2019-01-15] MEDS ORDERED: IOHEXOL 350 MG/ML 150 ML (OMNIPAQUE 350) VIAL IV ONE (03:15)
[2019-01-15] MEDS ORDERED: NS 100 ML (IVPB) BAG IV ONE (03:15)
[2019-01-15] MEDS ORDERED: SUCRALFATE 1 GM (CARAFATE) TAB PO STA (05:04)
[2019-01-15] MEDS ORDERED: PANTOPRAZOLE 40 MG (PROTONIX) VIAL IV STA (05:04)
[2019-01-15] MEDS ORDERED: ANTACID SUSP 30 ML UDC (MYLANTA) PO ONE (05:15)
[2019-01-15] MEDS ORDERED: LIDOCAINE 2% VISCOUS 15 ML UDC PO ONE (05:15)
[2019-01-15] MEDS ORDERED: POTA-53 PO (05:17)
[2019-01-15] MEDS ORDERED: SUCR1ORA5 PO (05:17)
[2019-01-15 05:20] VITALS: BP 143/91
--- NOTE | 2019-01-15 06:19 | Diagnostic Imaging Report ---
Patient History: Chest pain. Technique: Single frontal view of the chest Comparison: None FINDINGS: The lung volumes are normal. No focal consolidation is seen. No large pleural effusion or pneumothorax is seen. The cardiomediastinal silhouette is normal in size and contour. No acute osseous abnormality is seen. IMPRESSION: No acute pulmonary abnormality seen. Dictated by: Dictated on workstation # [id number]
--- NOTE | 2019-01-15 06:26 | Diagnostic Imaging Report ---
PROCEDURE: CT angiography of the chest with contrast. TECHNIQUE: Multiple contiguous axial images were obtained through the chest after uneventful bolus administration of intravenous contrast. 3D reconstructed CTA MIP acquisitions were also performed. Auto Exposure Controls were utilized during the CT exam to meet ALARA standards for radiation dose reduction. INDICATION: Chest pain radiating to left arm. COMPARISON: None FINDINGS: There is motion artifact on multiple images. The pulmonary arteries are diagnostic to the segmental level. No pulmonary embolus is seen. The heart is normal in size. There is no pericardial effusion. No mediastinal adenopathy is seen. No axillary adenopathy is seen. There is dependent atelectasis in the lungs bilaterally. Imaged portions of the upper abdomen demonstrate no acute abnormality. IMPRESSION: 1. No pulmonary embolus. No acute pulmonary abnormality is seen. Dictated by: Dictated on workstation # [id number]
== END 2019-01-15 05:23 | disposition home or self-care (01) ==
LOC: EDUNIT# 00:06 → ER FS 00:08
DX: K22.4 Dyskinesia of esophagus (principal); E87.6 Hypokalemia; R07.89 Other chest pain; I10 Essential (primary) hypertension; F41.9 Anxiety disorder, unspecified; J44.9 Chronic obstructive pulmonary disease, unspecified; G40.909 Epilepsy, unspecified, not intractable, without status epilepticus; G43.909 Migraine, unspecified, not intractable, without status migrainosus; K21.9 Gastro-esophageal reflux disease without esophagitis; F32.9 Major depressive disorder, single episode, unspecified; F17.210 Nicotine dependence, cigarettes, uncomplicated; Z88.8 Allergy status to other drugs, medicaments and biological substances; Z90.710 Acquired absence of both cervix and uterus; Z98.51 Tubal ligation status; Z87.442 Personal history of urinary calculi
CPT/HCPCS: 36415; 71045; 71275; 80053; 83605; 83690; 83735; 83880; 84484; 85007; 85027; 85610; 85730; 87040; 93005; 93041

== ENCOUNTER 2019-01-25 19:02 | Inpatient (IN) | payer MEDICAID | END 2019-01-27 17:15 | disposition home or self-care (01) | LOC: 4TH 01-26 01:27 → ER FS 19:02 → 4TH 21:22 ==

== ENCOUNTER → 2019-01-29 | Outpatient (CLI) | payer MEDICAID ==
[~2019-01-29] MED LIST changes: +ACHD5005 PO; +CLON0.5T13 PO; +LISI10TA2 PO; +OMEP40CA36 PO; -OMEPRAZOLE CAP 40MG; +OMEPRAZOLE CAP 40MG PO; +POTA-53 PO; +SUCR1ORA5 PO
[2019-01-29 14:21] LABS: BASOPHILS % (AUTO) 0 % (0-10); EOSINOPHILS % (AUTO) 2 % (0-10); HEMATOCRIT 34 % (35-52); HEMOGLOBIN 11.4 G/DL (11.5-16.0); LYMPHOCYTES % (AUTO) 25 % (12-44); MEAN CORPUSCULAR HEMOGLOBIN 31 PG (25-34); MEAN CORPUSCULAR HGB CONC 34 G/DL (32-36); MEAN CORPUSCULAR VOLUME 92 FL (80-99); MEAN PLATELET VOLUME 9.3 FL (7.4-10.4); MONOCYTES % (AUTO) 4 % (0-12); NEUTROPHILS % (AUTO) 69 % (42-75); PLATELET COUNT 390 10^3/uL (130-400); RED CELL DISTRIBUTION WIDTH 13.9 % (10.0-14.5); WHITE BLOOD COUNT 16.3 10^3/uL (4.3-11.0)
[2019-01-29 14:22] LABS: BASOPHILS # (AUTO) 0.1 10^3/uL (0.0-0.1); EOSINOPHILS # (AUTO) 0.3 10^3/uL (0.0-0.3); MONOCYTES # (AUTO) 0.6 X 10^3 (0.0-1.0); NEUTROPHILS # (AUTO) 11.2 X 10^3 (1.8-7.8)
[2019-01-29 14:48] LABS: BAND NEUTROPHILS 7 %; BASOPHILS % (MANUAL) 1 %; EOSINOPHILS % (MANUAL) 4 %; LYMPHOCYTES % (MANUAL) 24 %; MONOCYTES % (MANUAL) 6 %; NEUTROPHILS % (MANUAL) 58 %; RBC MORPH NORMAL
== END ==
LOC: LAB FS 13:46
PROVIDERS: ATTEND Nurse Practitioner Family
DX: D64.9 Anemia, unspecified (principal)
CPT/HCPCS: 36415; 85007; 85027

== ENCOUNTER 2019-02-03 13:41 | Emergency (ER) | payer MEDICAID ==
[~2019-02-03] VITALS: Ht 152.4 cm; Wt 106.8 kg
[2019-02-03 14:08] LABS: HCG,QUALITATIVE URINE NEGATIVE (NEGATIVE)
[2019-02-03 14:10] LABS: CLARITY,URINE CLEAR; COLOR,URINE YELLOW; GLUCOSE, URINE (UA) NEGATIVE (NEGATIVE); PH,URINE 6.5 (5-9); PROTEIN,URINE NEGATIVE (NEGATIVE)
[2019-02-03 14:11] LABS: BACTERIA,URINE NEGATIVE /HPF; BILIRUBIN,URINE NEGATIVE (NEGATIVE); KETONES,URINE NEGATIVE (NEGATIVE); LEUKOCYTE ESTERASE ,URINE NEGATIVE (NEGATIVE); NITRITE,URINE NEGATIVE (NEGATIVE); RBC,URINE RARE /HPF; UROBILINOGEN,URINE 0.2 MG/DL (NORMAL)
[2019-02-03] MEDS ORDERED: ONDANSETRON 4 MG/2 ML (SDV) Z0FRAN ONE (14:15)
[2019-02-03] MEDS ORDERED: HOLD METFORMIN - RECEIVED CONTRAST 20 ML VIAL IV SCH (14:15)
[2019-02-03] MEDS ORDERED: CATHETER FLUSH 10 ML SYR IV PRN (14:15)
[2019-02-03] MEDS ORDERED: IOHEXOL 350 MG/ML 100 ML (OMNIPAQUE 350) VIAL IV ONE (14:15)
[2019-02-03] MEDS ORDERED: HYDROcodone/APAP 5 MG/325 MG (LORTAB) TAB PO ONE (14:15)
[2019-02-03] MEDS ORDERED: NS 100 ML (IVPB) BAG IV ONE (14:15)
[2019-02-03] MEDS ORDERED: ONDANSETRON 4 MG/2 ML (SDV) Z0FRAN IVP ONE (14:15)
[2019-02-03 14:23] LABS: HEMATOCRIT 36 % (35-52); HEMOGLOBIN 12.2 G/DL (11.5-16.0); MEAN CORPUSCULAR HEMOGLOBIN 31 PG (25-34); MEAN CORPUSCULAR VOLUME 90 FL (80-99); WHITE BLOOD COUNT 15.3 10^3/uL (4.3-11.0)
[2019-02-03 14:25] LABS: BASOPHILS % (AUTO) 1 % (0-10); EOSINOPHILS % (AUTO) 2 % (0-10); LYMPHOCYTES % (AUTO) 25 % (12-44); MEAN CORPUSCULAR HGB CONC 34 G/DL (32-36); MEAN PLATELET VOLUME 9.2 FL (7.4-10.4); MONOCYTES % (AUTO) 4 % (0-12); NEUTROPHILS % (AUTO) 68 % (42-75); PLATELET COUNT 441 10^3/uL (130-400); RED CELL DISTRIBUTION WIDTH 14.1 % (10.0-14.5)
[2019-02-03 14:26] LABS: BASOPHILS # (AUTO) 0.1 10^3/uL (0.0-0.1); EOSINOPHILS # (AUTO) 0.3 10^3/uL (0.0-0.3); LYMPHOCYTES # (AUTO) 3.8 X 10^3 (1.0-4.0); MONOCYTES # (AUTO) 0.6 X 10^3 (0.0-1.0); NEUTROPHILS # (AUTO) 10.5 X 10^3 (1.8-7.8)
[2019-02-03 14:41] LABS: BILIRUBIN,DIRECT < 0.2 MG/DL (0.0-0.3); BILIRUBIN,TOTAL 0.2 MG/DL (0.1-1.0); BUN/CREATININE RATIO 9; CALCIUM 8.8 MG/DL (8.5-10.1); CARBON DIOXIDE 26 MMOL/L (21-32); CHLORIDE 102 MMOL/L (98-107); CREATININE SERUM 0.74 MG/DL (0.60-1.30); GFR ESTIMATED > 60; GLUCOSE 92 MG/DL (70-105); POTASSIUM 3.4 MMOL/L (3.6-5.0); SODIUM 139 MMOL/L (135-145)
[2019-02-03 14:42] LABS: ALANINE AMINOTRANSFERASE 20 U/L (0-55); ALBUMIN 4.1 GM/DL (3.2-4.5); ALKALINE PHOSPHATASE 113 U/L (40-136); LIPASE 20 U/L (8-78); TOTAL PROTEIN 7.3 GM/DL (6.4-8.2)
[2019-02-03 14:48] LABS: ATYPICAL LYMPHOCYTES 4 %; BAND NEUTROPHILS 2 %; BASOPHILS % (MANUAL) 0 %; EOSINOPHILS % (MANUAL) 3 %; LYMPHOCYTES % (MANUAL) 23 %; MONOCYTES % (MANUAL) 3 %; NEUTROPHILS % (MANUAL) 65 %
--- NOTE | 2019-02-03 15:01 | Diagnostic Imaging Report ---
PROCEDURE: CT abdomen and pelvis with contrast. TECHNIQUE: Multiple contiguous axial images were obtained through the abdomen and pelvis after administration of intravenous contrast. Auto Exposure Controls were utilized during the CT exam to meet ALARA standards for radiation dose reduction. INDICATION: Middle abdominal pain x1 week. CORRELATION STUDY: 01/25/2019 FINDINGS: LOWER THORAX: Clear. LIVER: Borderline enlarged with diffuse low-attenuation compatible with hepatic steatosis. GALLBLADDER: Cholecystectomy. SPLEEN: Unremarkable. PANCREAS: Unremarkable. ADRENAL GLANDS: Unremarkable. KIDNEYS: A few very small cortical densities at the right kidney incompletely characterized, could be reflective of very small cysts. No hydronephrosis or evidence for obstruction of either kidney. ABDOMINAL AORTA: Mild scattered plaque-like formation. Superior mesenteric artery, celiac trunk, inferior mesenteric artery, bilateral renal arteries including a small right accessory renal artery are patent. A few small nonpathologic enlarged central retroperitoneal lymph nodes. GASTROINTESTINAL TRACT: Stomach collapsed. A few mildly prominent fluid-filled loops of small bowel are present. No transition point or findings to suggest high degree obstruction. Some loops may be adhered as they closely approximate each other in central aspect of the abdomen. Colon, particularly distal colon is diffusely decompressed which does accentuate wall thickening. Normal appendix. No abdominal ascites or free air. URINARY BLADDER: Relatively decompressed. REPRODUCTIVE: Post hysterectomy. OSSEOUS STRUCTURES: No acute abnormality. OTHER: None. IMPRESSION: 1. May be a component of mild enteritis. No findings to suggest bowel obstruction. 2. Borderline hepatomegaly with hepatic steatosis. Dictated by: Dictated on workstation # [id number]
--- NOTE | 2019-02-03 15:02 | ED Abdominal Pain ---
General Chief Complaint: Abdominal/GI Problems Stated Complaint: STOMACH PAIN Nursing Triage Note: Patient reports bilateral lower quadrant abdominal pain for 1 week, states she was admitted as an inpatient at [facility] for her pain and an elevated WBC count, states she is unsure of the source of her infection. She states she has been taking amoxil as prescribed, states her pain improved briefly, but worsened last night. She also reports nausea and diarrhea since yesterday, denies vomiting. Sepsis Screen: No Definite Risk History of Present Illness Date Seen by Provider: Feb 03, 2019 Time Seen by Provider: 14:00 Initial Comments Patient is a 38-year-old female with a past medical history significant for multiple abdominal surgeries and chronic abdominal pain. Today, she presents to the emergency department complaining of diffuse umbilical and lower abdominal pain. She has been having symptoms over the last several weeks. She was admitted to the hospital in [place] last week when she had abdominal pain and some GI bleeding. Her hemoglobins were stable and she was discharged. She did not require blood transfusions. She was supposed to follow-up after that for endoscopy. Patient relates she has had multiple colonoscopies in the past and has been diagnosed with diverticulitis and polyps. She does have scheduled follow-up pending 2 weeks from now. Today, she states her pain is just been worse at home. She was given some [place] which should help but she does not have this medication any longer. She complains of some nausea as well but no vomiting. No diarrhea. No urinary symptoms. No irregular vaginal symptoms. Pain symptoms today are very similar to her usual pain. She has been followed by her primary care doctor and was placed on amoxicillin for treatment of elevated white blood cell count but patient is unaware what more specific infection she is being treated for. Allergies and Home Medications Allergies Coded Allergies: gabapentin (Verified Allergy, Unknown, 01/25/19) metoclopramide (Unverified Allergy, Unknown, "CAUSES PT TO LOSE CONTROL OF MUSCLES", 01/25/19) Home Medications Albuterol 8.5 Gm Hfa.aer.ad, 2 PUFF IH Q6H PRN for SHORTNESS OF BREATH, (Reported) PRN SHORTNESS OF BREATH Ethosuximide 250 Mg Capsule, 250 MG PO HS, (Reported) Fluoxetine HCl 40 Mg Capsule, 40 MG PO DAILY, (Reported) Fluticasone/Salmeterol 250 Mcg/50 Mcg Inh, 1 SPRAY IH BID, (Reported) Hydrocodone Bit/Acetaminophen 1 Tab Tab, 1 TAB PO Q4H PRN for PAIN-MODERATE Prescribed by: AZHEER RUANO on 01/27/19 1200 Hydrocodone/Acetaminophen 1 Each Tablet, 2 TAB PO Q6H Prescribed by: SANTINO CUNNINGHAM on 02/03/19 1510 Lisinopril 10 Mg Tablet, 10 MG PO DAILY, (Reported) Meloxicam 15 Mg Tablet, 15 MG PO Q6H Prescribed by: JESSENIA SOSA on 11/30/18 0103 Omeprazole 40 Mg Capsule.dr, 40 MG PO DAILY, (Reported) Ondansetron 4 Mg Tab.rapdis, 4 MG PO TID Prescribed by: SANTINO CUNNINGHAM on 02/03/19 1511 Patient Home Medication List Home Medication List Reviewed: Yes Review of Systems Review of Systems Constitutional: malaise EENTM: No Symptoms Reported Respiratory: No Symptoms Reported Cardiovascular: No Symptoms Reported Gastrointestinal: See HPI Genitourinary: See HPI Musculoskeletal: no symptoms reported Skin: no symptoms reported All Other Systems Reviewed Negative Unless Noted: Yes Past Hanisdj-Udzjtj-Khomff Hx Patient Social History Alcohol Use: Denies Use Recreational Drug Use: No Smoking Status: Current Everyday Smoker Type Used: Cigarettes 2nd Hand Smoke Exposure: Yes Recent Foreign Travel: No Contact w/Someone Who Travel: No Recent Infectious Disease Expo: No Recent Hopitalizations: No Physical Abuse: No Sexual Abuse: No Mistreated: No Fear: No Immunizations Up To Date Tetanus Booster (TDap): Unknown Seasonal Allergies Seasonal Allergies: No Past Medical History Surgeries: Yes (dental extractions) Gallbladder, Hysterectomy, 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 Respiratory: Yes Asthma, COPD Cardiac: Yes Heart Murmur, Hypertension Neurological: Yes Headaches /Migraines, Seizure Disorder 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 Disorders: Yes Female 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 Disorders: 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, 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 Sexually Transmitted Disease: No Genitourinary: Yes Kidney Stones Gastrointestinal: No Gastroesophageal Reflux, Diverticulosis, Polyps, Ulcer, Gall Bladder Disease Musculoskeletal: Yes (spina bifida) Arthritis, Scoliosis, Chronic Back Pain Endocrine: No HEENT: Yes Chronic Ear Infection Hearing Impairment: Hard of Hearing Cancer: No Psychosocial: Yes Anxiety, Depression Integumentary: No Blood Disorders: No Family Medical History No Pertinent Family Hx, GI Disease Physical Exam Vital Signs Vital Signs - First Documented 02/03/19 13:58 Temp 36.5 Pulse 99 Resp 18 B/P (MAP) 160/102 (121) Pulse Ox 97 O2 Delivery Room Air Capillary Refill : Less Than 3 Seconds Height/Weight/BMI Height: 5'0" Weight: 235lbs. 0oz. [id number]; 45.00 BMI Method:Stated General Appearance: WD/WN, no apparent distress HEENT: PERRL/EOMI, normal ENT inspection, pharynx normal Neck: full range of motion, supple Respiratory: chest non-tender, lungs clear, normal breath sounds Cardiovascular: regular rate, rhythm, no edema, no murmur Gastrointestinal: normal bowel sounds, non tender, soft Back: normal inspection Skin: normal color, warm/dry Progress/Results/Core Measures Results/Orders Lab Results Laboratory Tests Test 02/03/19 13:45 02/03/19 14:10 Range/Units Urine Color YELLOW Urine Clarity CLEAR Urine pH 6.5 5-9 Urine Specific [place] 1.010 L 1.016-1.022 Urine Protein NEGATIVE NEGATIVE Urine Glucose (UA) NEGATIVE NEGATIVE Urine Ketones NEGATIVE NEGATIVE Urine Nitrite NEGATIVE NEGATIVE Urine Bilirubin NEGATIVE NEGATIVE Urine Urobilinogen 0.2 NORMAL MG/DL Urine Leukocyte Esterase NEGATIVE NEGATIVE Urine RBC (Auto) TRACE H NEGATIVE Urine RBC RARE /HPF Urine WBC NONE /HPF Urine Squamous Epithelial Cells 5-10 /HPF Urine Crystals NONE /LPF Urine Bacteria NEGATIVE /HPF Urine Casts NONE /LPF Urine Mucus NONE /LPF Urine Culture Indicated NO Urine Test NEGATIVE NEGATIVE White Blood Count 15.3 H 4.3-11.0 10^3/uL Red Blood Count 3.98 L 4.35-5.85 10^6/uL Hemoglobin 12.2 11.5-16.0 G/DL Hematocrit 36 35-52 % Mean Corpuscular Volume 90 80-99 FL Mean Corpuscular Hemoglobin 31 25-34 PG Mean Corpuscular Hemoglobin Concent 34 32-36 G/DL Red Cell Distribution Width 14.1 10.0-14.5 % Platelet Count 441 H 130-400 10^3/uL Mean Platelet Volume 9.2 7.4-10.4 FL Neutrophils (%) (Auto) 68 42-75 % Lymphocytes (%) (Auto) 25 12-44 % Monocytes (%) (Auto) 4 0-12 % Eosinophils (%) (Auto) 2 0-10 % Basophils (%) (Auto) 1 0-10 % Neutrophils # (Auto) 10.5 H 1.8-7.8 X 10^3 Lymphocytes # (Auto) 3.8 1.0-4.0 X 10^3 Monocytes # (Auto) 0.6 0.0-1.0 X 10^3 Eosinophils # (Auto) 0.3 0.0-0.3 10^3/uL Basophils # (Auto) 0.1 0.0-0.1 10^3/uL Neutrophils % (Manual) 65 % Lymphocytes % (Manual) 23 % Monocytes % (Manual) 3 % Eosinophils % (Manual) 3 % Basophils % (Manual) 0 % Band Neutrophils 2 % Atypical Lymphocytes 4 % Sodium Level 139 135-145 MMOL/L Potassium Level 3.4 L 3.6-5.0 MMOL/L Chloride Level 102 98-107 MMOL/L Carbon Dioxide Level 26 21-32 MMOL/L Anion Gap 11 5-14 MMOL/L Blood Urea Nitrogen 7 7-18 MG/DL Creatinine 0.74 0.60-1.30 MG/DL Estimat Glomerular Filtration Rate > 60 BUN/Creatinine Ratio 9 Glucose Level 92 70-105 MG/DL Calcium Level 8.8 8.5-10.1 MG/DL Total Bilirubin 0.2 0.1-1.0 MG/DL Direct Bilirubin < 0.2 0.0-0.3 MG/DL Indirect Bilirubin 0.0 MG/DL Aspartate Amino Transf (AST/SGOT) 36 H 5-34 U/L Alanine Aminotransferase (ALT/SGPT) 20 0-55 U/L Alkaline Phosphatase 113 40-136 U/L Total Protein 7.3 6.4-8.2 GM/DL Albumin 4.1 3.2-4.5 GM/DL Lipase 20 8-78 U/L My Orders Orders - SANTINO CUNNINGHAM DO Ua Culture If Indicated (02/03/19 13:44) Hcg,Qualitative Urine (02/03/19 13:44) Ed Iv/Invasive Line Start (02/03/19 13:57) Cbc With Automated Diff (02/03/19 13:57) Basic Metabolic Panel (02/03/19 13:57) Liver Panel (02/03/19 13:57) Lipase (02/03/19 13:57) Ct Abdomen/Pelvis W (02/03/19 14:11) Hydrocodone/Apap 5/325 Tablet (Lortab 5 (02/03/19 14:15) Iohexol Injection (Omnipaque 350 Mg/Ml 1 (02/03/19 14:15) Received Contrast (Hold Metformin- Contr (02/03/19 14:15) Sodium Chloride Flush (Catheter Flush Sy (02/03/19 14:15) Ns (Ivpb) (Sodium Chloride 0.9% Ivpb Bag (02/03/19 14:15) Ondansetron Injection (Zofran Injectio (02/03/19 14:15) Ondansetron Injection (Zofran Injectio (02/03/19 14:15) Manual Differential (02/03/19 14:10) Morphine Injection (Morphine Injection (02/03/19 15:16) Medications Given in ED Current Medications Medications Dose Ordered Sig/Brissa Route Start Time Stop Time Status Last Admin Dose Admin Acetaminophen/ Hydrocodone Bitart 2 tab ONCE ONCE PO 02/03/19 14:15 02/03/19 14:16 DC 02/03/19 14:19 2 TAB Iohexol 100 ml ONCE ONCE IV 02/03/19 14:15 02/03/19 14:16 DC 02/03/19 14:34 100 ML Ondansetron HCl 4 mg ONCE ONCE IVP 02/03/19 14:15 02/03/19 14:22 DC 02/03/19 14:25 4 MG Sodium Chloride 10 ml NEEDED PRN IV 02/03/19 14:15 02/03/19 14:34 10 ML Sodium Chloride 100 ml ONCE ONCE IV 02/03/19 14:15 02/03/19 14:16 DC 02/03/19 14:34 80 ML Vital Signs/I&O 02/03/19 02/03/19 13:58 15:14 Temp 36.5 Pulse 99 80 Resp 18 16 B/P (MAP) 160/102 (121) 150/82 Pulse Ox 97 98 O2 Delivery Room Air Blood Pressure Mean: 121 Progress Progress Note : Time: 14:00 Progress Note Patient is examined for the complaint documented above. Plan is to check urine and basic labs. We will repeat CT scan. Medications are ordered for pain and nausea. ED Summary: Patient was evaluated for abdominal pain. In the ER, her workup did not reveal an acute cause for her pain symptoms. On her physical exam, her abdomen is soft and nontender. She has no guarding or rebound tenderness. She does not appear toxic and does not appear to be in any distress as she is r esting comfortably on the gurney throughout the ER course. She was given 2 [place] for pain in the ER along with 6 mg of morphine IV. She was given 1 dose of Zofran which did entirely relieve her nausea symptoms. At the time of discharge, the patient stated she continued to have pain but it was improved. I reviewed all her results with her and answered all of her questions. I informed that there was no acute indication for admission today. Patient is discharged to home. She is given some Zofran and [place] to use at home and encouraged to follow up with her primary care physician. She did have mild leukocytosis today but improving from the last documented result and no overt source for infection present today. Departure Impression Primary Impression: Abdominal pain Disposition: HOME, SELF-CARE Condition: Improved Departure-Patient Inst. Referrals: [facility]/ (PCP) Primary Care Physician MAYKEL CUMMINS APRN (Family) Primary Care Physician Scripts Ondansetron (Ondansetron Odt) 4 Mg Tab.rapdis 4 MG PO TID for Nausea, #10 TAB Prov: SANTINO CUNNINGHAM DO 02/03/19 Hydrocodone/Acetaminophen ([place] 5-325 Tablet) 1 Each Tablet 2 TAB PO Q6H for Pain MDD 10 TABS for 7 Days, #15 TAB Prov: SANTINO CUNNINGHAM DO 02/03/19 SANTINO CUNNINGHAM DO Feb 03, 2019 15:02
[2019-02-03] MEDS ORDERED: HYDR-4226 PO (15:10)
[2019-02-03] MEDS ORDERED: ONDA4TAB11 PO (15:11)
[2019-02-03 15:14] VITALS: BP 150/82
[2019-02-03] MEDS ORDERED: morphine INJ 10 MG/ML 1ML (SYR OR VIAL) IVP STA (15:16)
== END 2019-02-03 15:26 | disposition home or self-care (01) ==
LOC: EDUNIT# 13:41 → ER FS 13:42
DX: R10.31 Right lower quadrant pain (principal); R10.32 Left lower quadrant pain; R10.33 Periumbilical pain; I10 Essential (primary) hypertension; J44.9 Chronic obstructive pulmonary disease, unspecified; G40.909 Epilepsy, unspecified, not intractable, without status epilepticus; G43.909 Migraine, unspecified, not intractable, without status migrainosus; K21.9 Gastro-esophageal reflux disease without esophagitis; F41.9 Anxiety disorder, unspecified; F32.9 Major depressive disorder, single episode, unspecified; F17.210 Nicotine dependence, cigarettes, uncomplicated; Z87.442 Personal history of urinary calculi; Z90.710 Acquired absence of both cervix and uterus; Z98.51 Tubal ligation status; Z87.19 Personal history of other diseases of the digestive system; Z98.890 Other specified postprocedural states; Z88.8 Allergy status to other drugs, medicaments and biological substances; Z79.52 Long term (current) use of systemic steroids
CPT/HCPCS: 36415; 74177; 80048; 80076; 81000; 83690; 84703; 85007; 85027

== ENCOUNTER 2019-02-10 20:16 | Emergency (ER) | payer MEDICAID ==
[~2019-02-10] VITALS: Ht 157 cm; Wt 107.0 kg
[~2019-02-10 20:16] MED LIST changes: +HYDR-4226 PO; +ONDA4TAB11 PO
[2019-02-10 21:04] LABS: BACTERIA,URINE NEGATIVE /HPF; BILIRUBIN,URINE NEGATIVE (NEGATIVE); CLARITY,URINE CLEAR; COLOR,URINE STRAW; GLUCOSE, URINE (UA) NEGATIVE (NEGATIVE); KETONES,URINE NEGATIVE (NEGATIVE); LEUKOCYTE ESTERASE ,URINE NEGATIVE (NEGATIVE); NITRITE,URINE NEGATIVE (NEGATIVE); PROTEIN,URINE NEGATIVE (NEGATIVE); RBC,URINE 0-2 /HPF; UROBILINOGEN,URINE 0.2 MG/DL (NORMAL)
[2019-02-10] MEDS ORDERED: NS IV 1000 ML 1,000 ML IV SCH (21:05)
[2019-02-10] MEDS ORDERED: morphine INJ 10 MG/ML 1ML (SYR OR VIAL) IVP STA ×2 (21:05→21:51)
[2019-02-10] MEDS ORDERED: ONDANSETRON 4 MG/2 ML (SDV) Z0FRAN IVP ONE (21:15)
[2019-02-10 21:35] LABS: HEMATOCRIT 35 % (35-52); HEMOGLOBIN 11.9 G/DL (11.5-16.0); MEAN CORPUSCULAR HEMOGLOBIN 31 PG (25-34); MEAN CORPUSCULAR HGB CONC 34 G/DL (32-36); MEAN CORPUSCULAR VOLUME 91 FL (80-99); PLATELET COUNT 408 10^3/uL (130-400); RED CELL DISTRIBUTION WIDTH 14.4 % (10.0-14.5)
[2019-02-10 21:36] LABS: BASOPHILS # (AUTO) 0.1 10^3/uL (0.0-0.1); BASOPHILS % (AUTO) 0 % (0-10); EOSINOPHILS # (AUTO) 0.3 10^3/uL (0.0-0.3); EOSINOPHILS % (AUTO) 2 % (0-10); LYMPHOCYTES # (AUTO) 4.9 X 10^3 (1.0-4.0); LYMPHOCYTES % (AUTO) 29 % (12-44); MEAN PLATELET VOLUME 9.6 FL (7.4-10.4); MONOCYTES # (AUTO) 0.6 X 10^3 (0.0-1.0); MONOCYTES % (AUTO) 3 % (0-12); NEUTROPHILS # (AUTO) 11.1 X 10^3 (1.8-7.8); NEUTROPHILS % (AUTO) 66 % (42-75)
[2019-02-10 22:03] LABS: ALANINE AMINOTRANSFERASE 21 U/L (0-55); ALKALINE PHOSPHATASE 113 U/L (40-136); BILIRUBIN,TOTAL 0.2 MG/DL (0.1-1.0); BUN/CREATININE RATIO 10; CALCIUM 9.1 MG/DL (8.5-10.1); CARBON DIOXIDE 24 MMOL/L (21-32); CHLORIDE 104 MMOL/L (98-107); CREATININE SERUM 0.81 MG/DL (0.60-1.30); GFR ESTIMATED > 60; GLUCOSE 93 MG/DL (70-105); LIPASE 23 U/L (8-78); POTASSIUM 3.6 MMOL/L (3.6-5.0); SODIUM 140 MMOL/L (135-145); TOTAL PROTEIN 7.2 GM/DL (6.4-8.2)
[2019-02-10] MEDS ORDERED: NS 100 ML (IVPB) BAG IV ONE (22:15)
[2019-02-10] MEDS ORDERED: CATHETER FLUSH 10 ML SYR IV PRN (22:15)
[2019-02-10] MEDS ORDERED: IOHEXOL 350 MG/ML 100 ML (OMNIPAQUE 350) VIAL IV ONE (22:15)
[2019-02-10] MEDS ORDERED: HOLD METFORMIN - RECEIVED CONTRAST 20 ML VIAL IV SCH (22:15)
--- NOTE | 2019-02-10 22:15 | ED Abdominal Pain ---
General Chief Complaint: Abdominal/GI Problems Stated Complaint: LOWER STOMACH PAIN Nursing Triage Note: PT COMPLAINING OF LOWER ABD PAIN FOR ABOUT 2 WEEKS Sepsis Screen: No Definite Risk History of Present Illness Date Seen by Provider: Feb 10, 2019 Time Seen by Provider: 21:00 Initial Comments The patient is a 38-year-old female with a past medical history notable for chronic abdominal pain and multiple abdominal surgeries including multiple laparoscopies for endometriosis, cholecystectomy, hysterectomy. Patient presents with concern for generalized abdominal pain which is worse periumbilically and in bilateral lower quadrants of the abdomen. This has been present for the past few weeks. 2 weeks ago patient was admitted to [facility] for abdominal discomfort in association with some GI bleeding. Blood counts remained appropriate and the patient was ultimately discharged with a plan to follow up for lower endoscopy with the GI specialist which she is evidently scheduled to do in just a few days. About one week ago the patient was seen here for worsened pain at which time labs and imaging demonstrated no evidence of an acute process. The patient was discharged to follow-up. She returns today with wor sened pain. Patient states that her pain was generally somewhat controlled with Kiester but she ran out of that yesterday. She denies associated fevers, nausea or vomiting, cough, shortness of breath or chest pain, flank pain, new or worsening back pain, dysuria or hematuria, hematemesis, hematochezia, melena, diarrhea or constipation. She states she's been taking ibuprofen at home for relief of symptoms that she does not have anything stronger available. Allergies and Home Medications Allergies Coded Allergies: gabapentin (Verified Allergy, Unknown, 01/25/19) metoclopramide (Unverified Allergy, Unknown, "CAUSES PT TO LOSE CONTROL OF MUSCLES", 01/25/19) Home Medications Albuterol 8.5 Gm Hfa.aer.ad, 2 PUFF IH Q6H PRN for SHORTNESS OF BREATH, (Reported) PRN SHORTNESS OF BREATH Ethosuximide 250 Mg Capsule, 250 MG PO HS, (Reported) Fluoxetine HCl 40 Mg Capsule, 40 MG PO DAILY, (Reported) Fluticasone/Salmeterol 250 Mcg/50 Mcg Inh, 1 SPRAY IH BID, (Reported) Hydrocodone Bit/Acetaminophen 1 Tab Tab, 1 TAB PO Q4H PRN for PAIN-MODERATE Prescribed by: ZAHEER RUANO on 01/27/19 1200 Hydrocodone/Acetaminophen 1 Each Tablet, 2 TAB PO Q6H Prescribed by: SANTINO CUNNINGHAM on 02/03/19 1510 Lisinopril 10 Mg Tablet, 10 MG PO DAILY, (Reported) Meloxicam 15 Mg Tablet, 15 MG PO Q6H Prescribed by: JESSENIA SOSA on 11/30/18 0103 Omeprazole 40 Mg Capsule.dr, 40 MG PO DAILY, (Reported) Ondansetron 4 Mg Tab.rapdis, 4 MG PO TID Prescribed by: SANTINO CUNNINGHAM on 02/03/19 1511 Patient Home Medication List Home Medication List Reviewed: Yes Review of Systems Review of Systems Constitutional: see HPI All Other Systems Reviewed Negative Unless Noted: Yes (Negative excepted noted.) Past Ynwbjdo-Jtyerb-Kjagmv Hx Past Med/Social Hx: Reviewed Nursing Past Med/Soc Hx Patient Social History Alcohol Use: Denies Use Recreational Drug Use: No Type Used: Cigarettes 2nd Hand Smoke Exposure: No Recent Foreign Travel: No Contact w/Someone Who Travel: No Recent Infectious Disease Expo: No Recent Hopitalizations: No Physical Abuse: No Sexual Abuse: No Mistreated: No Fear: No Immunizations Up To Date Tetanus Booster (TDap): Unknown Seasonal Allergies Seasonal Allergies: No Past Medical History Surgeries: Yes (dental extractions) Gallbladder, Hysterectomy, 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 Respiratory: Yes Asthma, COPD Cardiac: Yes Heart Murmur, Hypertension Neurological: Yes Headaches /Migraines, Seizure Disorder 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 Disorders: Yes Female 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 Disorders: 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 [employer] History: Hysterectomy, 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 Sexually Transmitted Disease: No Genitourinary: Yes Kidney Stones Gastrointestinal: No Gastroesophageal Reflux, Diverticulosis, Polyps, Ulcer, Gall Bladder Disease Musculoskeletal: Yes (spina bifida) Arthritis, Scoliosis, Chronic Back Pain Endocrine: No HEENT: Yes Chronic Ear Infection Hearing Impairment: Hard of Hearing Cancer: No Psychosocial: Yes Anxiety, Depression Integumentary: No Blood Disorders: No Family Medical History Reviewed Nursing Family Hx No Pertinent Family Hx, GI Disease Physical Exam Vital Signs Vital Signs - First Documented 02/10/19 20:21 Temp 37.6 Pulse 90 Resp 18 B/P (MAP) 154/89 (110) Pulse Ox 97 O2 Delivery Room Air Capillary Refill : Less Than 3 Seconds Height/Weight/BMI Height: 5'0" Weight: 235lbs. 0oz. 106.178679pl; 43.00 BMI Method:Stated General Appearance: no apparent distress Exam Comments This is a younger female appearing far older than her stated age. She is nontoxic and in no acute distress. Head is normocephalic and atraumatic. Neck is supple and nontender. Oropharynx is moist. Lungs are clear to auscultation in all stations. There is a normal S1 and S2 without rubs or gallops and capillary refill is appropriate, less than 2 seconds globally. Abdomen is soft and nondistended and with mild generalized tenderness to palpation which is worst periumbilically and to the bilateral lower quadrants of the abdomen. There is no rebound or guarding. Skin is warm and dry without cyanosis, clubbing or edema. Psychiatrically, the patient demonstrates appropriate mood and affect and is alert. Progress/Results/Core Measures Results/Orders Lab Results Laboratory Tests Test 02/10/19 20:35 02/10/19 21:17 Range/Units Urine Color STRAW Urine Clarity CLEAR Urine pH 6.0 5-9 Urine Specific [place] <=1.005 1.016-1.022 Urine Protein NEGATIVE NEGATIVE Urine Glucose (UA) NEGATIVE NEGATIVE Urine Ketones NEGATIVE NEGATIVE Urine Nitrite NEGATIVE NEGATIVE Urine Bilirubin NEGATIVE NEGATIVE Urine Urobilinogen 0.2 NORMAL MG/DL Urine Leukocyte Esterase NEGATIVE NEGATIVE Urine RBC (Auto) TRACE-I NEGATIVE Urine RBC 0-2 /HPF Urine WBC NONE /HPF Urine Crystals NONE /LPF Urine Bacteria NEGATIVE /HPF Urine Casts NONE /LPF Urine Mucus NEGATIVE /LPF Urine Culture Indicated NO Urine Test NEGATIVE NEGATIVE White Blood Count 17.0 H 4.3-11.0 10^3/uL Red Blood Count 3.88 L 4.35-5.85 10^6/uL Hemoglobin 11.9 11.5-16.0 G/DL Hematocrit 35 35-52 % Mean Corpuscular Volume 91 80-99 FL Mean Corpuscular Hemoglobin 31 25-34 PG Mean Corpuscular Hemoglobin Concent 34 32-36 G/DL Red Cell Distribution Width 14.4 10.0-14.5 % Platelet Count 408 H 130-400 10^3/uL Mean Platelet Volume 9.6 7.4-10.4 FL Neutrophils (%) (Auto) 66 42-75 % Lymphocytes (%) (Auto) 29 12-44 % Monocytes (%) (Auto) 3 0-12 % Eosinophils (%) (Auto) 2 0-10 % Basophils (%) (Auto) 0 0-10 % Neutrophils # (Auto) 11.1 H 1.8-7.8 X 10^3 Lymphocytes # (Auto) 4.9 H 1.0-4.0 X 10^3 Monocytes # (Auto) 0.6 0.0-1.0 X 10^3 Eosinophils # (Auto) 0.3 0.0-0.3 10^3/uL Basophils # (Auto) 0.1 0.0-0.1 10^3/uL Sodium Level 140 135-145 MMOL/L Potassium Level 3.6 3.6-5.0 MMOL/L Chloride Level 104 98-107 MMOL/L Carbon Dioxide Level 24 21-32 MMOL/L Anion Gap 12 5-14 MMOL/L Blood Urea Nitrogen 8 7-18 MG/DL Creatinine 0.81 0.60-1.30 MG/DL Estimat Glomerular Filtration Rate > 60 BUN/Creatinine Ratio 10 Glucose Level 93 70-105 MG/DL Calcium Level 9.1 8.5-10.1 MG/DL Corrected Calcium 9.1 8.5-10.1 MG/DL Total Bilirubin 0.2 0.1-1.0 MG/DL Aspartate Amino Transf (AST/SGOT) 36 H 5-34 U/L Alanine Aminotransferase (ALT/SGPT) 21 0-55 U/L Alkaline Phosphatase 113 40-136 U/L Total Protein 7.2 6.4-8.2 GM/DL Albumin 4.0 3.2-4.5 GM/DL Lipase 23 8-78 U/L My Orders Orders - JENIFER GONZALES MD Cbc With Automated Diff (02/10/19 20:55) Comprehensive Metabolic Panel (02/10/19 20:55) Lipase (02/10/19 20:55) Ua Culture If Indicated (02/10/19 20:55) Hcg,Qualitative Urine (02/10/19 20:55) Ed Iv/Invasive Line Start (02/10/19 20:55) Morphine Injection (Morphine Injection (02/10/19 21:05) Ondansetron Injection (Zofran Injectio (02/10/19 21:15) Ed Iv/Invasive Line Start (02/10/19 21:05) Ns Iv 1000 Ml (Sodium Chloride 0.9%) (02/10/19 21:05) Manual Differential (02/10/19 21:17) Morphine Injection (Morphine Injection (02/10/19 21:51) Ct Abdomen/Pelvis W (02/10/19 22:07) Iohexol Injection (Omnipaque 350 Mg/Ml 1 (02/10/19 22:15) Received Contrast (Hold Metformin- Contr (02/10/19 22:15) Sodium Chloride Flush (Catheter Flush Sy (02/10/19 22:15) Ns (Ivpb) (Sodium Chloride 0.9% Ivpb Bag (02/10/19 22:15) Medications Given in ED Current Medications Medications Dose Ordered Sig/Brissa Route Start Time Stop Time Status Last Admin Dose Admin Iohexol 100 ml ONCE ONCE IV 02/10/19 22:15 02/10/19 22:16 DC 02/10/19 22:21 100 ML Ondansetron HCl 4 mg ONCE ONCE IVP 02/10/19 21:15 02/10/19 21:16 DC 02/10/19 21:20 4 MG Sodium Chloride 10 ml NEEDED PRN IV 02/10/19 22:15 02/10/19 22:21 10 ML Sodium Chloride 100 ml ONCE ONCE IV 02/10/19 22:15 02/10/19 22:16 DC 02/10/19 22:21 80 ML Vital Signs/I&O 02/10/19 20:21 Temp 37.6 Pulse 90 Resp 18 B/P (MAP) 154/89 (110) Pulse Ox 97 O2 Delivery Room Air Blood Pressure Mean: 110 Progress Progress Note : Progress Note Patient presents with an apparent acute exacerbation of chronic abdominal pain for which no clear organic etiology has recently been identified. Patient alread y has GI follow-up scheduled in 3 days. We will check labs and urine and will give IV fluids and medication for discomfort and nausea and we'll then reevaluate. We will attempt to avoid additional CT scanning today. Update 2210: Patient is continuing to have significant abdominal discomfort. Labs generally without significant evidence of acute process; chronic leukocytosis appears stable vs prior values. In view of continued pain we will obtain advanced imaging to rule out acute process this evening. We will treat with additional pain medication. Update 2307: Patient is feeling considerably better upon reassessment. Labs generally unremarkable and reassuring and CT with evidence of a mild nonspecific colitis. We will cover with ciprofloxacin and Flagyl and prescribe Kiester for breakthrough pain and have the patient follow-up as already scheduled in 3 days with GI. She understands that if she feels worse instead of better or develops other new symptoms of concern that she should return immediately for reevalu ation. All questions are answered. Diagnostic Imaging Diagonstic Imaging: CT Comments CT A/P (statrad): Liquid stool throughout the colon with mild mucosal thickening suggestive of nonspecific colitis. Hepatic steatosis. Status post cholecystectomy and hysterectomy. Departure Impression Primary Impression: Chronic abdominal pain Additional Impression: Colitis Disposition: HOME, SELF-CARE Condition: Improved Departure-Patient Inst. Referrals: [facility] (PCP) Primary Care Physician MAYKEL CUMMINS APRN (Family) Primary Care Physician Patient Instructions: Chronic Pain, Colitis Add. Discharge Instructions: Follow-up with your primary care physician in the next 1-2 days. Follow-up with your dress marker as scheduled in 3 days. Take the antibiotics as directed and you may use the pain medication as needed for breakthrough pain. Return to the emergency department right away with worsening symptoms or other new concerns. Scripts Hydrocodone/Acetaminophen (Kiester 5-325 Tablet) 1 Each Tablet 1 TAB PO Q6H for Pain MDD 10 TABS for 7 Days, #10 TAB Prov: JENIFER GONZALES MD 02/10/19 Metronidazole (Flagyl) 500 Mg Tablet 500 MG PO TID for 7 Days, #21 TAB Prov: JENIFER GONZALES MD 02/10/19 Ciprofloxacin HCl (Ciprofloxacin HCl) 500 Mg Tablet 500 MG PO BID, #14 TAB Prov: JENIFER GONZALES MD 02/10/19 JENIFER GONZALES MD Feb 10, 2019 22:15
[2019-02-10] MEDS ORDERED: HYDR-4226 PO (23:12)
[2019-02-10] MEDS ORDERED: CIPR500T4 PO (23:12)
[2019-02-10] MEDS ORDERED: METR500T PO (23:12)
[2019-02-10 23:23] VITALS: BP 160/100
[2019-02-10 23:29] LABS: EOSINOPHILS % (MANUAL) 2 %; LYMPHOCYTES % (MANUAL) 30 %; MONOCYTES % (MANUAL) 1 %; NEUTROPHILS % (MANUAL) 67 %
--- NOTE | 2019-02-11 05:53 | Diagnostic Imaging Report ---
PROCEDURE: CT abdomen and pelvis with contrast. TECHNIQUE: Multiple contiguous axial images were obtained through the abdomen and pelvis after administration of intravenous contrast. Auto Exposure Controls were utilized during the CT exam to meet ALARA standards for radiation dose reduction. INDICATION: Lower abdominal pain Comparison is made to study of 02/03/2019. Low density is again seen throughout the liver without interval change. There is no evidence of focal hepatic lesion. Gallbladder surgically absent with mild extrahepatic biliary ductal ectasia. There is no evidence of pancreatic, splenic or adrenal gland abnormality. Kidneys are unremarkable in appearance. Appendix has a normal appearance. There is no free fluid within the abdomen or pelvis. No organized fluid collection is identified. There is mild diffuse colonic liquid stool. IMPRESSION: Findings are consistent with diarrhea, however, no acute abnormality or adverse change seen elsewhere in the abdomen or pelvis. Hepatic steatosis is again noted. Dictated by: Dictated on workstation # [id number]
== END 2019-02-10 23:23 | disposition home or self-care (01) ==
LOC: EDUNIT# 20:16 → ER FS 20:17
DX: K52.9 Noninfective gastroenteritis and colitis, unspecified (principal); G89.29 Other chronic pain; J44.9 Chronic obstructive pulmonary disease, unspecified; I10 Essential (primary) hypertension; F41.9 Anxiety disorder, unspecified; F32.9 Major depressive disorder, single episode, unspecified; G43.909 Migraine, unspecified, not intractable, without status migrainosus; G40.909 Epilepsy, unspecified, not intractable, without status epilepticus; K21.9 Gastro-esophageal reflux disease without esophagitis; Z87.442 Personal history of urinary calculi; Z87.19 Personal history of other diseases of the digestive system; Z98.890 Other specified postprocedural states; Z90.49 Acquired absence of other specified parts of digestive tract; Z90.710 Acquired absence of both cervix and uterus; Z88.8 Allergy status to other drugs, medicaments and biological substances; Z79.51 Long term (current) use of inhaled steroids; Z98.51 Tubal ligation status
CPT/HCPCS: 36415; 74177; 80053; 81000; 83690; 84703; 85007; 85027; 96361; 96374; 96375; 96376

== ENCOUNTER 2019-02-17 21:20 | Emergency (ER) | payer MEDICAID ==
[~2019-02-17] VITALS: Ht 152 cm; Wt 107.0 kg
[~2019-02-17 21:20] MED LIST changes: +CIPR500T4 PO; +METR500T PO
--- NOTE | 2019-02-17 21:29 | ED Abdominal Pain ---
General Chief Complaint: Abdominal/GI Problems Stated Complaint: STOMACH PAIN,VOMITING Source of Information: Patient History of Present Illness Date Seen by Provider: Feb 17, 2019 Time Seen by Provider: 21:29 Initial Comments 38-year-old female presenting with complaints of abdominal pain. She has had frequent visits through the emergency department as well as clinic for recurrent abdominal pain. She also has been vomiting. She denies seeing any blood this episode but hasn't seen blood in the past. she most recently was seen last weekend for the same complaints. At that time a CT scan was done for the third week in a row and did not demonstrate any significant change his other than some mild inflammation to the colon. She was started on antibiotics for possible colitis. She states that her pain and symptoms have continued and she feels like they are worse. She has been taking the antibiotics and keep them down. She is not scheduled to get a colonoscopy or EGD with her surgeon until the end of February. She states that the surgeon told her he wanted her stomach to settle down before doing the scope. She denies any fever or chills. She has pain mostly in the lower abdomen especially on the left side. There is also some mild epigastric pain. She denies any diarrhea or bloody stools. She has had no pain with urination. Allergies and Home Medications Allergies Coded Allergies: gabapentin (Verified Allergy, Unknown, 01/25/19) metoclopramide (Unverified Allergy, Unknown, "CAUSES PT TO LOSE CONTROL OF MUSCLES", 01/25/19) Home Medications Albuterol 8.5 Gm Hfa.aer.ad, 2 PUFF IH Q6H PRN for SHORTNESS OF BREATH, (Reported) PRN SHORTNESS OF BREATH Ciprofloxacin HCl 500 Mg Tablet, 500 MG PO BID Prescribed by: JENIFER GONZALES on 02/10/19 2312 Dicyclomine HCl 20 Mg Tablet, 20 MG PO QID PRN for spasms Prescribed by: LEIGH ANGEL on 02/18/19 0054 Ethosuximide 250 Mg Capsule, 250 MG PO HS, (Reported) Fluoxetine HCl 40 Mg Capsule, 40 MG PO DAILY, (Reported) Fluticasone/Salmeterol 250 Mcg/50 Mcg Inh, 1 SPRAY IH BID, (Reported) Hydrocodone Bit/Acetaminophen 1 Tab Tab, 1 TAB PO Q4H PRN for PAIN-MODERATE Prescribed by: ZAHEER RUANO on 01/27/19 1200 Hydrocodone/Acetaminophen 1 Each Tablet, 2 TAB PO Q6H Prescribed by: SANTINO CUNNINGHAM on 02/03/19 151 Hydrocodone/Acetaminophen 1 Each Tablet, 1 TAB PO Q6H Prescribed by: JENIFER GONZALES on 02/10/192311 Lisinopril 10 Mg Tablet, 10 MG PO DAILY, (Reported) Meloxicam 15 Mg Tablet, 15 MG PO Q6H Prescribed by: JESSENIA SOSA on 11/30/18 0103 Metronidazole 500 Mg Tablet, 500 MG PO TID Prescribed by: JENIFER GONZALES on 02/10/192311 Omeprazole 40 Mg Capsule.dr, 40 MG PO DAILY, (Reported) Ondansetron 4 Mg Tab.rapdis, 4 MG PO TID Prescribed by: SANTINO CUNNINGHAM on 02/03/191510 Promethazine HCl 25 Mg Tablet, 25 MG PO Q6H PRN for NAUSEA/VOMITING Prescribed by: LEIGH ANGEL on 02/18/19 0054 Patient Home Medication List Home Medication List Reviewed: Yes Review of Systems Review of Systems Constitutional: No chills, No fever; malaise EENTM: No Symptoms Reported Respiratory: No Symptoms Reported Cardiovascular: No Symptoms Reported Gastrointestinal: See HPI Genitourinary: No Symptoms Reported Musculoskeletal: no symptoms reported Skin: no symptoms reported Psychiatric/Neurological: No Symptoms Reported Past Ocecfij-Qimexl-Pglheh Hx Past Med/Social Hx: Reviewed Nursing Past Med/Soc Hx Patient Social History Type Used: Cigarettes 2nd Hand Smoke Exposure: No Recent Foreign Travel: No Contact w/Someone Who Travel: No Recent Hopitalizations: No Immunizations Up To Date Tetanus Booster (TDap): Unknown Seasonal Allergies Seasonal Allergies: No Past Medical History Surgeries: Yes (dental extractions) Gallbladder, Hysterectomy, 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 Respiratory: Yes Asthma, COPD Cardiac: Yes Heart Murmur, Hypertension Neurological: Yes Headaches /Migraines, Seizure Disorder 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 Disorders: Yes Female 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 Disorders: 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 EVENT [employer] History: Hysterectomy, 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 Sexually Transmitted Disease: No Genitourinary: Yes Kidney Stones Gastrointestinal: No Gastroesophageal Reflux, Diverticulosis, Polyps, Ulcer, Gall Bladder Disease Musculoskeletal: Yes (spina bifida) Arthritis, Scoliosis, Chronic Back Pain Endocrine: No HEENT: Yes Chronic Ear Infection Hearing Impairment: Hard of Hearing Cancer: No Psychosocial: Yes Anxiety, Depression Integumentary: No Blood Disorders: No Family Medical History No Pertinent Family Hx, GI Disease Physical Exam Vital Signs Vital Signs - First Documented 02/17/19 21:27 Temp 37.2 Pulse 106 Resp 18 B/P (MAP) 137/86 (103) Pulse Ox 97 O2 Delivery Room Air Capillary Refill : Height/Weight/BMI Height: 5'0" Weight: 235lbs. 0oz. 106.784196pa; 43.00 BMI Method:Stated General Appearance: WD/WN, mild distress HEENT: PERRL/EOMI, pharynx normal Neck: non-tender, full range of motion, supple, normal inspection Respiratory: chest non-tender, lungs clear, normal breath sounds, no respiratory distress, no accessory muscle use Cardiovascular: normal peripheral pulses, regular rate, rhythm Gastrointestinal: normal bowel sounds, soft, no pulsatile mass, guarding; No rebound; tenderness (tenderness to palpation in the epigastric area and across the lower abdomen especially on the left lower quadrant) Rectal: deferred Extremities: normal range of motion, non-tender, normal inspection Neurologic/Psychiatric: alert Skin: normal color, warm/dry Progress/Results/Core Measures Results/Orders Lab Results Laboratory Tests Test 02/17/19 21:41 02/17/19 21:48 Range/Units White Blood Count 15.0 H 4.3-11.0 10^3/uL Red Blood Count 4.14 L 4.35-5.85 10^6/uL Hemoglobin 12.6 11.5-16.0 G/DL Hematocrit 37 35-52 % Mean Corpuscular Volume 90 80-99 FL Mean Corpuscular Hemoglobin 30 25-34 PG Mean Corpuscular Hemoglobin Concent 34 32-36 G/DL Red Cell Distribution Width 14.4 10.0-14.5 % Platelet Count 448 H 130-400 10^3/uL Mean Platelet Volume 9.5 7.4-10.4 FL Neutrophils (%) (Auto) 65 42-75 % Lymphocytes (%) (Auto) 28 12-44 % Monocytes (%) (Auto) 4 0-12 % Eosinophils (%) (Auto) 2 0-10 % Basophils (%) (Auto) 1 0-10 % Neutrophils # (Auto) 9.8 H 1.8-7.8 X 10^3 Lymphocytes # (Auto) 4.2 H 1.0-4.0 X 10^3 Monocytes # (Auto) 0.6 0.0-1.0 X 10^3 Eosinophils # (Auto) 0.2 0.0-0.3 10^3/uL Basophils # (Auto) 0.1 0.0-0.1 10^3/uL Neutrophils % (Manual) 72 % Lymphocytes % (Manual) 18 % Monocytes % (Manual) 2 % Eosinophils % (Manual) 4 % Atypical Lymphocytes 4 % Sodium Level 139 135-145 MMOL/L Potassium Level 2.9 L 3.6-5.0 MMOL/L Chloride Level 101 98-107 MMOL/L Carbon Dioxide Level 28 21-32 MMOL/L Anion Gap 10 5-14 MMOL/L Blood Urea Nitrogen 10 7-18 MG/DL Creatinine 0.72 0.60-1.30 MG/DL Estimat Glomerular Filtration Rate > 60 BUN/Creatinine Ratio 14 Glucose Level 135 H 70-105 MG/DL Calcium Level 8.7 8.5-10.1 MG/DL Corrected Calcium 8.6 8.5-10.1 MG/DL Total Bilirubin 0.2 0.1-1.0 MG/DL Aspartate Amino Transf (AST/SGOT) 29 5-34 U/L Alanine Aminotransferase (ALT/SGPT) 17 0-55 U/L Alkaline Phosphatase 104 40-136 U/L Total Protein 7.3 6.4-8.2 GM/DL Albumin 4.1 3.2-4.5 GM/DL Lipase 28 8-78 U/L Urine Color YELLOW Urine Clarity CLOUDY Urine pH 6.0 5-9 Urine Specific [place] 1.025 H 1.016-1.022 Urine Protein 1+ H NEGATIVE Urine Glucose (UA) NEGATIVE NEGATIVE Urine Ketones NEGATIVE NEGATIVE Urine Nitrite NEGATIVE NEGATIVE Urine Bilirubin NEGATIVE NEGATIVE Urine Urobilinogen 0.2 NORMAL MG/DL Urine Leukocyte Esterase NEGATIVE NEGATIVE Urine RBC (Auto) TRACE-I NEGATIVE Urine RBC NONE /HPF Urine WBC NONE /HPF Urine Squamous Epithelial Cells 2-5 /HPF Urine Crystals NONE /LPF Urine Bacteria NEGATIVE /HPF Urine Casts NONE /LPF Urine Mucus NEGATIVE /LPF Urine Culture Indicated NO My Orders Orders - LEIGH ANGEL MD Comprehensive Metabolic Panel (02/17/19 21:36) Lipase (02/17/19 21:36) Ua Culture If Indicated (02/17/19 21:36) Ed Iv/Invasive Line Start (02/17/19 21:36) Cbc With Automated Diff (02/17/19 21:36) Ns Iv 1000 Ml (Sodium Chloride 0.9%) (02/17/19 21:39) Pantoprazole Injection (Protonix Injecti (02/17/19 21:39) Fentanyl Injection (Sublimaze Injection (02/17/19 21:39) Ondansetron Injection (Zofran Injectio (02/17/19 21:39) Manual Differential (02/17/19 21:41) Hydromorphone Injection (Dilaudid Inject (02/17/19 22:20) Promethazine Injection (Phenergan Injec (02/17/19 22:20) Potassium Cl 10meq/50ml Ivpb (Kcl 10 Meq (02/17/19 22:20) Ketorolac Injection (Toradol Injection) (02/17/19 23:50) Dicyclomine Injection (Bentyl Injection) (02/17/19 23:50) Morphine Injection (Morphine Injection (02/17/19 23:50) Lorazepam Injection (Ativan Injection) (02/17/19 23:53) Rx-Hydrocodone/Apap 5-325 Mg (Rx-Vicodin (02/18/19 01:00) Medications Given in ED Current Medications Medications Dose Ordered Sig/Brissa Route Start Time Stop Time Status Last Admin Dose Admin Acetaminophen/ Hydrocodone Bitart 1 ea Q6H PRN PO 02/18/19 01:00 02/18/19 01:40 DC 02/18/19 01:36 1 EA Vital Signs/I&O 02/17/19 02/18/19 21:27 01:40 Temp 37.2 Pulse 106 78 Resp 18 17 B/P (MAP) 137/86 (103) 161/88 Pulse Ox 97 98 O2 Delivery Room Air Room Air 02/18/19 00:00 Intake Total 50 ml Balance 50 ml Progress Progress Note #1: Progress Note Obtain labs and give IV fluids for hydration, Zofran for nausea, fentanyl for pain. Since she has had a CT scan once a week for the last 3 weeks will defer imaging tonight. Progress Note #2: Time: 22:11 Progress Note On recheck, pt states she feels no better. Her pain is the same and nausea is no better. Labs are all stable without acute significant abnormality other than mild hypokalemia. Will add in potassium, give phenergan for nausea, and try a dose of dilaudid for her pain. Advised that with everything stable she did not warrant another CT scan this week like she has had every week for the last 3. Will encourage her to check with surgeon during the week and try nausea meds for home. will plan to discharge home after meds have infused and see how she is feeling. Progress Note #3: Time: 23:34 Progress Note D/w Dr. Cantrell about the patient since he had seen her in consult in the hospital. He had recommended trying to get her pain under control but then have her check with clinic in am and he thought they could schedule her scopes sooner than Mar 12. Will try Toradol with Bentyl for her pains. Try a dose of Ativan for anxiety and nerves. Morphine for pain. Plan to discharge with bentyl and have her call the clinic in am for moving up her scopes with Dr. Cantrell. Progress Note #4: Progress Note Pt was doing a little better and so was discharged as planned above. Departure Impression Primary Impression: LLQ abdominal pain Additional Impressions: GERD with esophagitis Nausea & vomiting Qualified Codes: R11.14 - Bilious vomiting Hypokalemia Disposition: HOME, SELF-CARE Condition: Stable Departure-Patient Inst. Decision time for Depature: 00:45 Referrals: [facility] [place] Primary Care Physician MAYKEL CUMMINS APRN (Family) Primary Care Physician RAN CANTRELL DO Patient Instructions: Acid Reflux (Gastroesophageal Reflux Disease), Adult (DC), Acute Abdomen (Belly Pain), Adult (DC), Hypokalemia (DC), Nausea and Vomiting, Adult (DC) Add. Discharge Instructions: Call Dr. Cantrell's office in the morning and let them know that he wanted to have you try to move your endoscopy appointment up from the end of the month. Try the Bentyl (Dicyclomine) for pain and spasms Phenergan for nausea Keep drinking fluids and check with clinic for continued problems/concerns All discharge instructions reviewed with patient and/or family. Voiced understanding. Scripts Promethazine HCl (Promethazine Tablet) 25 Mg Tablet 25 MG PO Q6H PRN for NAUSEA/VOMITING for 5 Days, #20 TAB 0 Refills Prov: LEIGH ANGEL MD 02/18/19 Dicyclomine HCl (Dicyclomine HCl) 20 Mg Tablet 20 MG PO QID PRN for spasms for 10 Days, #40 TAB 0 Refills Prov: LEIGH ANGEL MD 02/18/19 LEIGH ANGEL MD Feb 17, 2019 21:29
[2019-02-17] MEDS ORDERED: NS IV 1000 ML 1,000 ML IV STA (21:39)
[2019-02-17] MEDS ORDERED: fentaNYL INJECTION 100 MCG/2 ML AMP IVP STA (21:39)
[2019-02-17] MEDS ORDERED: PANTOPRAZOLE 40 MG (PROTONIX) VIAL IV STA (21:39)
[2019-02-17] MEDS ORDERED: ONDANSETRON 4 MG/2 ML (SDV) Z0FRAN IVP STA (21:39)
[2019-02-17 21:55] LABS: HEMATOCRIT 37 % (35-52); HEMOGLOBIN 12.6 G/DL (11.5-16.0); LYMPHOCYTES % (AUTO) 28 % (12-44); MEAN CORPUSCULAR HEMOGLOBIN 30 PG (25-34); MEAN CORPUSCULAR HGB CONC 34 G/DL (32-36); MEAN CORPUSCULAR VOLUME 90 FL (80-99); MEAN PLATELET VOLUME 9.5 FL (7.4-10.4); MONOCYTES % (AUTO) 4 % (0-12); NEUTROPHILS % (AUTO) 65 % (42-75); PLATELET COUNT 448 10^3/uL (130-400); RED CELL DISTRIBUTION WIDTH 14.4 % (10.0-14.5)
[2019-02-17 21:56] LABS: BASOPHILS # (AUTO) 0.1 10^3/uL (0.0-0.1); BASOPHILS % (AUTO) 1 % (0-10); EOSINOPHILS # (AUTO) 0.2 10^3/uL (0.0-0.3); EOSINOPHILS % (AUTO) 2 % (0-10); LYMPHOCYTES # (AUTO) 4.2 X 10^3 (1.0-4.0); MONOCYTES # (AUTO) 0.6 X 10^3 (0.0-1.0); NEUTROPHILS # (AUTO) 9.8 X 10^3 (1.8-7.8)
[2019-02-17 22:08] LABS: BILIRUBIN,TOTAL 0.2 MG/DL (0.1-1.0); BUN/CREATININE RATIO 14; CALCIUM 8.7 MG/DL (8.5-10.1); CARBON DIOXIDE 28 MMOL/L (21-32); CHLORIDE 101 MMOL/L (98-107); CREATININE SERUM 0.72 MG/DL (0.60-1.30); GFR ESTIMATED > 60; GLUCOSE 135 MG/DL (70-105); POTASSIUM 2.9 MMOL/L (3.6-5.0); SODIUM 139 MMOL/L (135-145)
[2019-02-17 22:09] LABS: ALANINE AMINOTRANSFERASE 17 U/L (0-55); ALBUMIN 4.1 GM/DL (3.2-4.5); ALKALINE PHOSPHATASE 104 U/L (40-136); LIPASE 28 U/L (8-78); TOTAL PROTEIN 7.3 GM/DL (6.4-8.2)
[2019-02-17 22:10] LABS: BACTERIA,URINE NEGATIVE /HPF; BILIRUBIN,URINE NEGATIVE (NEGATIVE); CLARITY,URINE CLOUDY; COLOR,URINE YELLOW; GLUCOSE, URINE (UA) NEGATIVE (NEGATIVE); KETONES,URINE NEGATIVE (NEGATIVE); LEUKOCYTE ESTERASE ,URINE NEGATIVE (NEGATIVE); NITRITE,URINE NEGATIVE (NEGATIVE); PROTEIN,URINE 1+ (NEGATIVE); UROBILINOGEN,URINE 0.2 MG/DL (NORMAL)
[2019-02-17 22:11] LABS: ATYPICAL LYMPHOCYTES 4 %; EOSINOPHILS % (MANUAL) 4 %; LYMPHOCYTES % (MANUAL) 18 %; MONOCYTES % (MANUAL) 2 %; NEUTROPHILS % (MANUAL) 72 %
[2019-02-17] MEDS ORDERED: PROMETHAZINE INJ 25 MG/ML (PHENERGAN) AMP IVP STA (22:20)
[2019-02-17] MEDS ORDERED: HYDROmorphone 2 MG/ML VIAL (DILAUDID) IV STA (22:20)
[2019-02-17] MEDS ORDERED: POTASSIUM CL 10MEQ/50ML IVPB 50 ML IV STA (22:20)
[2019-02-17] MEDS ORDERED: morphine INJ 10 MG/ML 1ML (SYR OR VIAL) IVP STA (23:50)
[2019-02-17] MEDS ORDERED: KETOROLAC 30 MG/ML VIAL IVP STA (23:50)
[2019-02-17] MEDS ORDERED: DICYCLOMINE 10 MG/ML (BENTYL) 2 ML AMP IM STA (23:50)
[2019-02-17] MEDS ORDERED: LORazepam INJ 2 MG/ML (ATIVAN) VIAL IVP STA (23:53)
[2019-02-18] MEDS ORDERED: PROM25TA14 PO (00:54)
[2019-02-18] MEDS ORDERED: DICY20TA10 PO (00:54)
[2019-02-18] MEDS ORDERED: RX-HYDROCODONE/APAP 5/325 MG #4 TAB PK PO PRN (01:00)
[2019-02-18 01:40] VITALS: BP 161/88
== END 2019-02-18 01:40 | disposition home or self-care (01) ==
LOC: EDUNIT# 21:20 → ER FS 21:21
DX: K21.0 Gastro-esophageal reflux disease with esophagitis (principal); E87.6 Hypokalemia; I10 Essential (primary) hypertension; J44.9 Chronic obstructive pulmonary disease, unspecified; F41.9 Anxiety disorder, unspecified; F32.9 Major depressive disorder, single episode, unspecified; G43.909 Migraine, unspecified, not intractable, without status migrainosus; G40.909 Epilepsy, unspecified, not intractable, without status epilepticus; Z90.710 Acquired absence of both cervix and uterus; Z87.442 Personal history of urinary calculi; Z87.19 Personal history of other diseases of the digestive system; Z88.8 Allergy status to other drugs, medicaments and biological substances; Z79.52 Long term (current) use of systemic steroids; Z97.10 Presence of artificial limb (complete) (partial), unspecified; Z98.51 Tubal ligation status
CPT/HCPCS: 36415; 80053; 81000; 83690; 85007; 85027

== ENCOUNTER 2019-02-20 05:41 | Outpatient (CLI) | payer MEDICAID ==
[~2019-02-20] VITALS: Ht 152.4 cm; Wt 106.4 kg
[~2019-02-20 05:41] MED LIST changes: +DICY20TA10 PO; +PROM25TA14 PO
[2019-02-20] MEDS ORDERED: RT-ALBUINH IH (10:51)
[2019-02-20] MEDS ORDERED: FLUT1DIS26 IH (10:51)
== END 2019-02-20 10:53 | disposition home or self-care (01) ==
LOC: PREOP 05:41
PROVIDERS: ATTEND Surgery
DX: Z01.818 Encounter for other preprocedural examination (principal)

== ENCOUNTER 2019-04-23 17:37 | Emergency (ER) | payer MEDICAID ==
[~2019-04-23] VITALS: Ht 152.4 cm; Wt 104.7 kg
[~2019-04-23 17:37] MED LIST changes: +FLUT1DIS26 IH; +RT-ALBUINH IH
--- NOTE | 2019-04-23 17:45 | ED General ---
General Stated Complaint: STOMACH PAIN History of Present Illness Date Seen by Provider: Apr 23, 2019 Time Seen by Provider: 17:45 Initial Comments Patient presenting to emergency department for evaluation of abdominal pain that started around 10:00 this morning as she says it is a constant pressure in her periumbilical region with intermittent intense sharp stabbing pains the cause her nausea and vomiting. She says the emesis is nonbloody nonbilious. She denies any fevers chills diarrhea constipation dysuria hematuria or abnormal vaginal bleeding or discharge. She has had a hysterectomy cholecystectomy scopes for endometriosis as well as a recent endoscopy and colonoscopy in February. She reports that this scopes were normal except for findings of polyps. Looking through the records it appears that she has chronic abdominal pain that does not typically improve in the emergency department. She is in no obvious distress with normal vital signs. (RAHEEM DAVEY DO) Allergies and Home Medications Allergies Coded Allergies: gabapentin (Verified Allergy, Unknown, 01/25/19) metoclopramide (Unverified Allergy, Unknown, "CAUSES PT TO LOSE CONTROL OF MUSCLES", 01/25/19) Home Medications Albuterol Sulfate 1 Puff Puff, 2 PUFF IH Q4H PRN for WHEEZING, (Reported) 1 PUFF = 90 MCG Azithromycin 250 Mg Tablet, 250 MG PO DAILY Prescribed by: LEIGH ANGEL on 04/23/192118 Dicyclomine HCl 20 Mg Tablet, 20 MG PO QID PRN for spasms Prescribed by: LEIGH ANGEL on 02/18/1954 Ethosuximide 250 Mg Capsule, 250 MG PO HS, (Reported) Fluoxetine HCl 40 Mg Capsule, 40 MG PO DAILY, (Reported) Fluticasone/Salmeterol 1 Each Blst.w.dev, 1 EACH IH BID, (Reported) Hydrocodone/Acetaminophen 1 Each Tablet, 0.5-1 EACH PO Q6H PRN for PAIN-SEVERE (8-10) Prescribed by: LEIGH ANGEL on 04/23/192118 Lisinopril 10 Mg Tablet, 10 MG PO DAILY, (Reported) Omeprazole 40 Mg Capsule.dr, 40 MG PO DAILY, (Reported) Promethazine HCl 25 Mg Tablet, 25 MG PO Q6H PRN for NAUSEA/VOMITING Prescribed by: LEIGH ANGEL on 02/18/1954 Patient Home Medication List Home Medication List Reviewed: Yes (RAHEEM DAVEY DO) Review of Systems Review of Systems Constitutional: no symptoms reported EENTM: no symptoms reported Respiratory: no symptoms reported Cardiovascular: no symptoms reported Gastrointestinal: abdominal pain, nausea, vomiting Genitourinary: no symptoms reported Musculoskeletal: no symptoms reported Skin: no symptoms reported Psychiatric/Neurological: No Symptoms Reported (RAHEEM DAVEY DO) Past Gondfsd-Vadwtb-Zchylb Hx Patient Social History Type Used: Cigarettes 2nd Hand Smoke Exposure: No Recent Foreign Travel: No Contact w/Someone Who Travel: No Recent Hopitalizations: No (RAHEEM DAVEY DO) Immunizations Up To Date Tetanus Booster (TDap): Unknown (RAHEEM DAVEY DO) Seasonal Allergies Seasonal Allergies: Yes (RAHEEM DAVEY DO) Past Medical History Surgeries: Yes (dental extractions, dxls, bmt) Gallbladder, Hysterectomy, 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 Respiratory: Yes Asthma, COPD Cardiac: Yes Heart Murmur, Hypertension Neurological: Yes Headaches /Migraines, Seizure Disorder 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 Disorders: Yes Female 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 Disorders: 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 [employer] History: Hysterectomy, 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 Sexually Transmitted Disease: No Genitourinary: Yes Kidney Stones Gastrointestinal: Yes Colitis, Gastroesophageal Reflux, Diverticulosis, Polyps, Ulcer Musculoskeletal: Yes (spina bifida) Arthritis, Scoliosis, Chronic Back Pain Endocrine: No HEENT: Yes Chronic Ear Infection Hearing Impairment: Hard of Hearing Cancer: No Psychosocial: Yes Anxiety, Depression Integumentary: No Blood Disorders: No (RAHEEM DAVEY DO) Family Medical History No Pertinent Family Hx, GI Disease (RAHEEM DAVEY DO) Physical Exam Vital Signs Vital Signs - First Documented 04/23/19 17:42 Temp 36.0 Pulse 107 Resp 18 B/P (MAP) 174/104 (127) Pulse Ox 95 O2 Delivery Room Air (LEIGH ANGEL MD) Vital Signs Capillary Refill : (RAHEEM DAVEY DO) Height, Weight, BMI Height: 5'0" Weight: 235lbs. 0oz. 106.993527xy; 45.81 BMI Method:Stated General Appearance: No Apparent Distress, WD/WN HEENT: Pharynx Normal Neck: Supple Respiratory: No Respiratory Distress Cardiovascular: Regular Rate, Rhythm Gastrointestinal: Soft; No Guarding, No Rebound; Tenderness Rectal: Deferred Back: Normal Inspection Neurologic/Psychiatric: Alert, Oriented x3 Skin: Warm/Dry (RAHEEM DAVEY [facility]) Progress/Results/Core Measures Suspected Sepsis SIRS Temperature: Pulse: Respiratory Rate: Blood Pressure / Mean: (RAHEEM DAVEY [facility]) Results/Orders Lab Results Laboratory Tests Test 04/23/19 17:50 04/23/19 18:01 Range/Units White Blood Count 17.0 H 4.3-11.0 10^3/uL Red Blood Count 4.32 L 4.35-5.85 10^6/uL Hemoglobin 13.0 11.5-16.0 G/DL Hematocrit 39 35-52 % Mean Corpuscular Volume 89 80-99 FL Mean Corpuscular Hemoglobin 30 25-34 PG Mean Corpuscular Hemoglobin Concent 34 32-36 G/DL Red Cell Distribution Width 13.7 10.0-14.5 % Platelet Count 469 H 130-400 10^3/uL Mean Platelet Volume 9.3 7.4-10.4 FL Neutrophils (%) (Auto) 67 42-75 % Lymphocytes (%) (Auto) 27 12-44 % Monocytes (%) (Auto) 4 0-12 % Eosinophils (%) (Auto) 1 0-10 % Basophils (%) (Auto) 0 0-10 % Neutrophils # (Auto) 11.4 H 1.8-7.8 X 10^3 Lymphocytes # (Auto) 4.6 H 1.0-4.0 X 10^3 Monocytes # (Auto) 0.7 0.0-1.0 X 10^3 Eosinophils # (Auto) 0.2 0.0-0.3 10^3/uL Basophils # (Auto) 0.1 0.0-0.1 10^3/uL Neutrophils % (Manual) 67 % Lymphocytes % (Manual) 22 % Monocytes % (Manual) 2 % Eosinophils % (Manual) 1 % Band Neutrophils 1 % Reactive Lymphocytes 7 % Platelet Estimate INCREASED Microcytosis MODERATE Sodium Level 137 135-145 MMOL/L Potassium Level 3.5 L 3.6-5.0 MMOL/L Chloride Level 101 98-107 MMOL/L Carbon Dioxide Level 22 21-32 MMOL/L Anion Gap 14 5-14 MMOL/L Blood Urea Nitrogen 6 L 7-18 MG/DL Creatinine 0.69 0.60-1.30 MG/DL Estimat Glomerular Filtration Rate > 60 BUN/Creatinine Ratio 9 Glucose Level 99 70-105 MG/DL Calcium Level 9.2 8.5-10.1 MG/DL Corrected Calcium 9.0 8.5-10.1 MG/DL Total Bilirubin < 0.2 0.1-1.0 MG/DL Aspartate Amino Transf (AST/SGOT) 30 5-34 U/L Alanine Aminotransferase (ALT/SGPT) 20 0-55 U/L Alkaline Phosphatase 152 H 40-136 U/L Total Protein 7.8 6.4-8.2 GM/DL Albumin 4.2 3.2-4.5 GM/DL Lipase 26 8-78 U/L Urine Color YELLOW Urine Clarity CLEAR Urine pH 6.0 5-9 Urine Specific [place] <=1.005 1.016-1.022 Urine Protein NEGATIVE NEGATIVE Urine Glucose (UA) NEGATIVE NEGATIVE Urine Ketones NEGATIVE NEGATIVE Urine Nitrite NEGATIVE NEGATIVE Urine Bilirubin NEGATIVE NEGATIVE Urine Urobilinogen 0.2 < = 1.0 MG/DL Urine Leukocyte Esterase NEGATIVE NEGATIVE Urine RBC (Auto) TRACE-L NEGATIVE Urine RBC NONE /HPF Urine WBC NONE /HPF Urine Squamous Epithelial Cells 2-5 /HPF Urine Crystals NONE /LPF Urine Bacteria NEGATIVE /HPF Urine Casts NONE /LPF Urine Mucus NEGATIVE /LPF Urine Culture Indicated NO (LEIGH ANGEL MD) My Orders Orders - LEIGH ANGEL MD Ns Iv 1000 Ml (Sodium Chloride 0.9%) (04/23/19 18:39) Promethazine Injection (Phenergan Injec (04/23/19 18:39) Morphine Injection (Morphine Injection (04/23/19 18:39) Ct Abdomen/Pelvis W (04/23/19 18:39) Iohexol Injection (Omnipaque 350 Mg/Ml 1 (04/23/19 19:00) Received Contrast (Hold Metformin- Contr (04/23/19 19:00) Sodium Chloride Flush (Catheter Flush Sy (04/23/19 19:00) Ns (Ivpb) (Sodium Chloride 0.9% Ivpb Bag (04/23/19 19:00) Hydromorphone Injection (Dilaudid Inject (04/23/19 20:54) Orphenadrine Injection (Norflex Injectio (04/23/19 20:54) Ceftriaxone For Iv Use (Rocephin For I (04/23/19 20:54) Ketorolac Injection (Toradol Injection) (04/23/19 20:54) Azithromycin Tablet (Zithromax Tablet) (04/23/19 21:20) Rx-Hydrocodone/Apap 5-325 Mg (Rx-Vicodin (04/23/19 21:30) (LEIGH ANGEL MD) Medications Given in ED Current Medications Medications Dose Ordered Sig/Brissa Route Start Time Stop Time Status Last Admin Dose Admin Acetaminophen/ Hydrocodone Bitart 1 ea Q6H PRN PO 04/23/19 21:30 04/23/19 21:30 DC 04/23/19 21:26 1 EA Iohexol 100 ml ONCE ONCE IV 04/23/19 19:00 04/23/19 19:01 DC 04/23/19 19:05 100 ML Sodium Chloride 10 ml NEEDED PRN IV 04/23/19 19:00 04/23/19 21:27 DC 04/23/19 19:05 10 ML Sodium Chloride 100 ml ONCE ONCE IV 04/23/19 19:00 04/23/19 19:01 DC 04/23/19 19:05 80 ML (LEIGH ANGEL MD) Vital Signs/I&O 04/23/19 04/23/19 17:42 21:27 Temp 36.0 37.1 Pulse 107 104 Resp 18 18 B/P (MAP) 174/104 (127) 130/69 Pulse Ox 95 92 O2 Delivery Room Air Room Air (LEIGH ANGEL MD) Vital Signs/I&O Capillary Refill : (RAHEEM DAVEY DO) Progress Note : Progress Note Patient with nonspecific mid abdominal pain. I will start by ordering some basic labs urinalysis and then reassess. Workup is pending at time of shift change at 1800 so I will transfer care to Dr. Angel. (RAHEEM DAVEY DO) Progress Note #1: Time: 18:00 Progress Note I assumed care of the patient at [address] Davey. Testing is pending. Progress Note #2: Time: 18:36 Progress Note Labs are all stable for the patient with chronic elevation of WBC count at her baseline and normal differential. She has no acute significant abnormality on her chemistry and UA shows low specific gravity and no sign of infection. And reviewing results with the patient she states that she is still having severe pain in the area of the lower abdomen area. This is constant since this afternoon when it came on. She states that she thought that it would be better after eating but it made no difference. It didn't make it better or worse. It is worse with palpation on exam. She states that it feels different than the abdo moriah pain she has been having chronically. She understands that she's had numerous scans and radiation testing exposures and understands the risk of having repeated radiation testing she agrees to undergoing another CT scan because she states that this pain definitely feels different than what she has had previously. I advised her it may still not showing anything acute and she benito y still just need to follow-up with the GI doctor as Dr. Brown is trying to get her set up for, but will try to rule out any acute abnormality based off of the CT since all of her labs are normal. Will give a Liter of NS for hydration, Morphine 10 mg IV, Phenergan 25 mg, and re-evaluate after CT scan. Progress Note #3: Time: 20:41 Progress Note On recheck of the patient she was advised of her results and the CT did not showing anything intra-abdominal. She states that she has been having a lot of coughing. This may be abdominal wall pain. Since her CT was showing she may be developing infection or infiltrate in the base of her lung will also treat her with some antibiotics. Add on a muscle relaxer and try an additional pain medicine Progress Note #4: Progress Note Improved after repeat medicines so will discharge on zithromax, hydrocodone and have her check with clinic for continued problems. (LEIGH ANGEL MD) Diagnostic Imaging Diagonstic Imaging: CT Plain Films/CT/US/NM/MRI: abdomen, pelvis Comments NAME: JUVENTINO BEAN [facility] REC#: [id number] PT STATUS: REG ER : 1980 PHYSICIAN: LEIGH ANGEL MD ADMIT DATE: 04/23/19/ER FS Draft POSDate of Exam:04/23/19 CT ABDOMEN/PELVIS W PROCEDURE: CT abdomen and pelvis with contrast. TECHNIQUE: Multiple contiguous axial images were obtained through the abdomen and pelvis after administration of intravenous contrast. Auto Exposure Controls were utilized during the CT exam to meet ALARA standards for radiation dose reduction. INDICATION: Left-sided abdominal pain since this morning. History of hysterectomy and cholecystectomy. COMPARISON: 02/10/2019 FINDINGS: The lung bases demonstrate mild groundglass opacity in the left lower lobe. The heart is normal in size. There is no pericardial effusion. The liver is mildly large measuring 19 cm in length. No focal hepatic lesions are seen. Cholecystectomy clips are noted. The spleen appears normal. The pancreas is normal. The adrenal glands are normal. The kidneys are unremarkable. No renal masses or hydronephrosis is seen. The bowel loops are nondistended without obstruction seen. The appendix appears normal. No significant bowel wall thickening is seen although portions of the bowel are decompressed. No free fluid or free air is seen. No significant lymphadenopathy is seen. No acute osseous abnormality is seen. There is transitional anatomy at the lumbosacral junction. IMPRESSION: 1. Mild hepatomegaly with no acute abdominopelvic abnormality seen. 2. Groundglass opacities in the left lower lobe, could represent early infection in the appropriate clinical setting. Dictated on workstation # [id number] Dict: 04/23/191915 Trans: 04/23/191923 [facility] [id number] Interpreted by: JOSEP RIVERA MD Electronically signed by: (LEIGH ANGEL MD) Departure Impression Primary Impression: Abdominal pain Qualified Codes: R10.84 - Generalized abdominal pain Additional Impressions: Nausea & vomiting Qualified Codes: R11.2 - Nausea with vomiting, unspecified Abdominal wall pain Pneumonia of left lower lobe due to infectious organism Disposition: 01 HOME, SELF-CARE Condition: Stable Departure-Patient Inst. Decision time for Depature: 21:17 (LEIGH ANGEL MD) [place] [facility] [place] Primary Care Physician MAYKEL CUMMINS APRN (Family) Primary Care Physician Patient Instructions: Abdominal Muscle Strain (DC), Nausea and Vomiting, Adult (DC), Pneumonia, Adult (DC) Add. Discharge Instructions: Take the antibiotics until gone. Follow up with clinic for continued problems/concerns Try alternating ice and heat to your abdominal wall to help with pain from the abdominal wall muscle spasm and strain from coughing. Scripts Azithromycin (Azithromycin) 250 Mg Tablet 250 MG PO DAILY for 4 Days, #4 TAB 0 Refills Prov: LEIGH ANGEL MD 04/23/19 Hydrocodone/Acetaminophen (Hydrocodon-Acetaminophn 10-325) 1 Each Tablet 0.5-1 EACH PO Q6H PRN for PAIN-SEVERE (8-10) MDD 5 for 3 Days, #12 TAB 0 Refills Prov: LEIGH ANGEL MD 04/23/19 RAHEEM DAVEY DO Apr 23, 2019 17:45 LEIGH THOMAS MD Apr 23, 2019 18:05 POS
[2019-04-23 17:59] LABS: BASOPHILS % (AUTO) 0 % (0-10); EOSINOPHILS # (AUTO) 0.2 10^3/uL (0.0-0.3); EOSINOPHILS % (AUTO) 1 % (0-10); HEMATOCRIT 39 % (35-52); LYMPHOCYTES # (AUTO) 4.6 X 10^3 (1.0-4.0); LYMPHOCYTES % (AUTO) 27 % (12-44); MEAN CORPUSCULAR HEMOGLOBIN 30 PG (25-34); MEAN CORPUSCULAR HGB CONC 34 G/DL (32-36); MEAN CORPUSCULAR VOLUME 89 FL (80-99); MEAN PLATELET VOLUME 9.3 FL (7.4-10.4); MONOCYTES # (AUTO) 0.7 X 10^3 (0.0-1.0); MONOCYTES % (AUTO) 4 % (0-12); NEUTROPHILS # (AUTO) 11.4 X 10^3 (1.8-7.8); NEUTROPHILS % (AUTO) 67 % (42-75); PLATELET COUNT 469 10^3/uL (130-400); RED CELL DISTRIBUTION WIDTH 13.7 % (10.0-14.5)
[2019-04-23 18:00] LABS: BASOPHILS # (AUTO) 0.1 10^3/uL (0.0-0.1)
[2019-04-23 18:20] LABS: BUN/CREATININE RATIO 9; CALCIUM 9.2 MG/DL (8.5-10.1); CARBON DIOXIDE 22 MMOL/L (21-32); CHLORIDE 101 MMOL/L (98-107); CREATININE SERUM 0.69 MG/DL (0.60-1.30); GFR ESTIMATED > 60; GLUCOSE 99 MG/DL (70-105); POTASSIUM 3.5 MMOL/L (3.6-5.0); SODIUM 137 MMOL/L (135-145)
[2019-04-23 18:21] LABS: ALANINE AMINOTRANSFERASE 20 U/L (0-55); ALBUMIN 4.2 GM/DL (3.2-4.5); ALKALINE PHOSPHATASE 152 U/L (40-136); BILIRUBIN,TOTAL < 0.2 MG/DL (0.1-1.0); LIPASE 26 U/L (8-78); TOTAL PROTEIN 7.8 GM/DL (6.4-8.2)
[2019-04-23 18:22] LABS: BAND NEUTROPHILS 1 %; EOSINOPHILS % (MANUAL) 1 %; LYMPHOCYTES % (MANUAL) 22 %; MONOCYTES % (MANUAL) 2 %; NEUTROPHILS % (MANUAL) 67 %; REACTIVE LYMPHOCYTES 7 %
[2019-04-23 18:23] LABS: CLARITY,URINE CLEAR; COLOR,URINE YELLOW; GLUCOSE, URINE (UA) NEGATIVE (NEGATIVE); PROTEIN,URINE NEGATIVE (NEGATIVE)
[2019-04-23 18:23] LABS: MICROCYTOSIS MODERATE; PLATELET ESTIMATE INCREASED
[2019-04-23 18:24] LABS: BILIRUBIN,URINE NEGATIVE (NEGATIVE); KETONES,URINE NEGATIVE (NEGATIVE); LEUKOCYTE ESTERASE ,URINE NEGATIVE (NEGATIVE); NITRITE,URINE NEGATIVE (NEGATIVE)
[2019-04-23 18:26] LABS: BACTERIA,URINE NEGATIVE /HPF
[2019-04-23] MEDS ORDERED: NS IV 1000 ML 1,000 ML IV STA (18:39)
[2019-04-23] MEDS ORDERED: PROMETHAZINE INJ 25 MG/ML (PHENERGAN) AMP IVP STA (18:39)
[2019-04-23] MEDS ORDERED: morphine INJ 10 MG/ML 1ML (SYR OR VIAL) IVP STA (18:39)
[2019-04-23] MEDS ORDERED: IOHEXOL 350 MG/ML 100 ML (OMNIPAQUE 350) VIAL IV ONE (19:00)
[2019-04-23] MEDS ORDERED: CATHETER FLUSH 10 ML SYR IV PRN (19:00)
[2019-04-23] MEDS ORDERED: HOLD METFORMIN - RECEIVED CONTRAST 20 ML VIAL IV SCH (19:00)
[2019-04-23] MEDS ORDERED: NS 100 ML (IVPB) BAG IV ONE (19:00)
--- NOTE | 2019-04-23 19:25 | Diagnostic Imaging Report ---
PROCEDURE: CT abdomen and pelvis with contrast. TECHNIQUE: Multiple contiguous axial images were obtained through the abdomen and pelvis after administration of intravenous contrast. Auto Exposure Controls were utilized during the CT exam to meet ALARA standards for radiation dose reduction. INDICATION: Left-sided abdominal pain since this morning. History of hysterectomy and cholecystectomy. COMPARISON: 02/10/2019 FINDINGS: The lung bases demonstrate mild groundglass opacity in the left lower lobe. The heart is normal in size. There is no pericardial effusion. The liver is mildly large measuring 19 cm in length. No focal hepatic lesions are seen. Cholecystectomy clips are noted. The spleen appears normal. The pancreas is normal. The adrenal glands are normal. The kidneys are unremarkable. No renal masses or hydronephrosis is seen. The bowel loops are nondistended without obstruction seen. The appendix appears normal. No significant bowel wall thickening is seen although portions of the bowel are decompressed. No free fluid or free air is seen. No significant lymphadenopathy is seen. No acute osseous abnormality is seen. There is transitional anatomy at the lumbosacral junction. IMPRESSION: 1. Mild hepatomegaly with no acute abdominopelvic abnormality seen. 2. Groundglass opacities in the left lower lobe, could represent early infection in the appropriate clinical setting. Dictated by: Dictated on workstation # [id number]
[2019-04-23] MEDS ORDERED: KETOROLAC 30 MG/ML VIAL IVP STA (20:54)
[2019-04-23] MEDS ORDERED: HYDROmorphone 2 MG/ML VIAL (DILAUDID) IV STA (20:54)
[2019-04-23] MEDS ORDERED: cefTRIAXone FOR IV USE 1,000 MG in WATER (STERILE) FOR INJECTION 10 ML IV STA (20:54)
[2019-04-23] MEDS ORDERED: ORPHENADRINE 60 MG/2 ML (NORFLEX) AMP IV STA (20:54)
[2019-04-23] MEDS ORDERED: HYDR-3820 PO (21:19)
[2019-04-23] MEDS ORDERED: AZIT250T12 PO (21:19)
[2019-04-23] MEDS ORDERED: AZITHROMYCIN 250 MG TAB (ZITHROMAX) PO STA (21:20)
[2019-04-23 21:27] VITALS: BP 130/69
[2019-04-23] MEDS ORDERED: RX-HYDROCODONE/APAP 5/325 MG #4 TAB PK PO PRN (21:30)
== END 2019-04-23 21:27 | disposition home or self-care (01) ==
LOC: EDUNIT# 17:37 → ER FS 17:39
DX: R10.9 Unspecified abdominal pain (principal); J18.9 Pneumonia, unspecified organism; J44.0 Chronic obstructive pulmonary disease with (acute) lower respiratory infection; I10 Essential (primary) hypertension; G43.909 Migraine, unspecified, not intractable, without status migrainosus; G40.909 Epilepsy, unspecified, not intractable, without status epilepticus; F41.9 Anxiety disorder, unspecified; F32.9 Major depressive disorder, single episode, unspecified; K21.9 Gastro-esophageal reflux disease without esophagitis; Z87.442 Personal history of urinary calculi; Z90.89 Acquired absence of other organs; Z90.710 Acquired absence of both cervix and uterus; Z88.8 Allergy status to other drugs, medicaments and biological substances; Z79.51 Long term (current) use of inhaled steroids; Z98.51 Tubal ligation status
CPT/HCPCS: 36415; 74177; 80053; 81000; 83690; 85007; 85027; 96361; 96374; 96375

== ENCOUNTER 2019-05-16 22:30 | Emergency (ER) | payer MEDICAID ==
[~2019-05-16] VITALS: Ht 152.4 cm; Wt 105.5 kg
[~2019-05-16 22:30] MED LIST changes: +AZIT250T12 PO; +HYDR-3820 PO
--- NOTE | 2019-05-16 22:48 | ED GI ---
General Chief Complaint: Abdominal/GI Problems Stated Complaint: ABD PAIN Source of Information: Patient Exam Limitations: No Limitations History of Present Illness Date Seen by Provider: May 16, 2019 Time Seen by Provider: 22:46 Initial Comments Patient complains of lower abdominal pain for the past 24 hours. She took Zofran prior to arrival without any relief. She is nauseated but has not vomited. She denies fevers chills or urinary symptoms. History of chronic abdominal pain with multiple surgeries and workup done. Recently had colonoscopy which showed polyps and a hiatal hernia but no serious pathology. Her surgeon is referring her to a GI specialist. Allergies and Home Medications Allergies Coded Allergies: gabapentin (Verified Allergy, Unknown, 01/25/19) metoclopramide (Unverified Allergy, Unknown, "CAUSES PT TO LOSE CONTROL OF MUSCLES", 01/25/19) Home Medications Albuterol Sulfate 1 Puff Puff, 2 PUFF IH Q4H PRN for WHEEZING, (Reported) 1 PUFF = 90 MCG Azithromycin 250 Mg Tablet, 250 MG PO DAILY Prescribed by: LEIGH ANGEL on 04/23/192118 Dicyclomine HCl 20 Mg Tablet, 20 MG PO QID PRN for spasms Prescribed by: LEIGH ANGEL on [birth year]/18/1954 Ethosuximide 250 Mg Capsule, 250 MG PO HS, (Reported) Fluoxetine HCl 40 Mg Capsule, 40 MG PO DAILY, (Reported) Fluticasone/Salmeterol 1 Each Blst.w.dev, 1 EACH IH BID, (Reported) Hydrocodone/Acetaminophen 1 Each Tablet, 0.5-1 EACH PO Q6H PRN for PAIN-SEVERE (8-10) Prescribed by: LEIGH ANGEL on 04/23/192118 Lisinopril 10 Mg Tablet, 10 MG PO DAILY, (Reported) Omeprazole 40 Mg Capsule.dr, 40 MG PO DAILY, (Reported) Promethazine HCl 25 Mg Tablet, 25 MG PO Q6H PRN for NAUSEA/VOMITING Prescribed by: LEIGH ANGEL on [birth year]18/1954 Patient Home Medication List Home Medication List Reviewed: Yes Review of Systems Review of Systems Constitutional: no symptoms reported Respiratory: No Symptoms Reported Cardiovascular: No Symptoms Reported Gastrointestinal: Abdominal Pain, Nausea Genitourinary: No Symptoms Reported Musculoskeletal: no symptoms reported Skin: no symptoms reported All Other Systems Reviewed Negative Unless Noted: Yes Past Opxutqr-Nkrafr-Fpnjor Hx Patient Social History Type Used: Cigarettes 2nd Hand Smoke Exposure: No Recent Foreign Travel: No Contact w/Someone Who Travel: No Recent Hopitalizations: No Immunizations Up To Date Tetanus Booster (TDap): Unknown Seasonal Allergies Seasonal Allergies: Yes Past Medical History Surgeries: Yes (dental extractions, dxls, bmt) Gallbladder, Hysterectomy, 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 Respiratory: Yes Asthma, COPD Cardiac: Yes Heart Murmur, Hypertension Neurological: Yes Headaches /Migraines, Seizure Disorder 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 Disorders: Yes Female 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 Disorders: 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, 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 Sexually Transmitted Disease: No Genitourinary: Yes Kidney Stones Gastrointestinal: Yes Colitis, Gastroesophageal Reflux, Diverticulosis, Polyps, Ulcer Musculoskeletal: Yes (spina bifida) Arthritis, Scoliosis, Chronic Back Pain Endocrine: No HEENT: Yes Chronic Ear Infection Hearing Impairment: Hard of Hearing Cancer: No Psychosocial: Yes Anxiety, Depression Integumentary: No Blood Disorders: No Family Medical History No Pertinent Family Hx, GI Disease Physical Exam Vital Signs Vital Signs - First Documented 05/16/19 22:45 Temp 36.8 Pulse 108 Resp 18 B/P (MAP) 167/109 (128) Pulse Ox 95 O2 Delivery Room Air Capillary Refill : Height/Weight/BMI Height: 5'0" Weight: 235lbs. 0oz. 106.016467tg; 45.00 BMI Method:Stated General Appearance: WD/WN, mild distress, obese HEENT: pharynx normal Neck: supple Respiratory: lungs clear, normal breath sounds Cardiovascular: regular rate, rhythm, no edema Gastrointestinal: soft; No guarding (mild suprapubic tenderness), No rebound; tenderness Extremities: normal inspection Back: normal inspection Neurologic/Psychiatric: alert, normal mood/affect Skin: normal color, warm/dry Progress/Results/Core Measures Results/Orders Lab Results Laboratory Tests Test 05/16/19 22:40 05/16/19 22:50 Range/Units Urine Color YELLOW Urine Clarity CLEAR Urine pH 6.0 5-9 Urine Specific [place] 1.025 H 1.016-1.022 Urine Protein NEGATIVE NEGATIVE Urine Glucose (UA) NEGATIVE NEGATIVE Urine Ketones NEGATIVE NEGATIVE Urine Nitrite NEGATIVE NEGATIVE Urine Bilirubin NEGATIVE NEGATIVE Urine Urobilinogen 0.2 < = 1.0 MG/DL Urine Leukocyte Esterase NEGATIVE NEGATIVE Urine RBC (Auto) NEGATIVE NEGATIVE Urine RBC 0-2 /HPF Urine WBC NONE /HPF Urine Squamous Epithelial Cells 5-10 /HPF Urine Crystals NONE /LPF Urine Bacteria NEGATIVE /HPF Urine Casts NONE /LPF Urine Mucus SMALL H /LPF Urine Culture Indicated NO White Blood Count 17.2 H 4.3-11.0 10^3/uL Red Blood Count 4.05 L 4.35-5.85 10^6/uL Hemoglobin 12.1 11.5-16.0 G/DL Hematocrit 36 35-52 % Mean Corpuscular Volume 89 80-99 FL Mean Corpuscular Hemoglobin 30 25-34 PG Mean Corpuscular Hemoglobin Concent 33 32-36 G/DL Red Cell Distribution Width 13.8 10.0-14.5 % Platelet Count 430 H 130-400 10^3/uL Mean Platelet Volume 9.3 7.4-10.4 FL Neutrophils (%) (Auto) 65 42-75 % Lymphocytes (%) (Auto) 30 12-44 % Monocytes (%) (Auto) 3 0-12 % Eosinophils (%) (Auto) 1 0-10 % Basophils (%) (Auto) 0 0-10 % Neutrophils # (Auto) 11.2 H 1.8-7.8 X 10^3 Lymphocytes # (Auto) 5.1 H 1.0-4.0 X 10^3 Monocytes # (Auto) 0.5 0.0-1.0 X 10^3 Eosinophils # (Auto) 0.2 0.0-0.3 10^3/uL Basophils # (Auto) 0.1 0.0-0.1 10^3/uL Neutrophils % (Manual) 65 % Lymphocytes % (Manual) 29 % Monocytes % (Manual) 3 % Reactive Lymphocytes 3 % Platelet Estimate INCREASED Microcytosis SLIGHT Sodium Level 138 135-145 MMOL/L Potassium Level 3.5 L 3.6-5.0 MMOL/L Chloride Level 103 98-107 MMOL/L Carbon Dioxide Level 21 21-32 MMOL/L Anion Gap 14 5-14 MMOL/L Blood Urea Nitrogen 11 7-18 MG/DL Creatinine 0.76 0.60-1.30 MG/DL Estimat Glomerular Filtration Rate > 60 BUN/Creatinine Ratio 14 Glucose Level 122 H 70-105 MG/DL Calcium Level 8.9 8.5-10.1 MG/DL Corrected Calcium 8.9 8.5-10.1 MG/DL Total Bilirubin < 0.2 0.1-1.0 MG/DL Aspartate Amino Transf (AST/SGOT) 19 5-34 U/L Alanine Aminotransferase (ALT/SGPT) 14 0-55 U/L Alkaline Phosphatase 120 40-136 U/L Total Protein 7.3 6.4-8.2 GM/DL Albumin 4.0 3.2-4.5 GM/DL Lipase 47 8-78 U/L My Orders Orders - ANN BLANCHARD MD Cbc With Automated Diff (05/16/19 22:38) Comprehensive Metabolic Panel (05/16/19 22:38) Lipase (05/16/19 22:38) Ua Culture If Indicated (05/16/19 22:38) Manual Differential (05/16/19 22:50) Ketorolac Injection (Toradol Injection) (05/16/19 23:15) Prochlorperazine Injection (Compazine In (05/16/19 23:15) Diphenhydramine Injection (Benadryl Inje (05/16/19 23:15) Ct Abdomen/Pelvis W (05/16/19 23:13) Iohexol Injection (Omnipaque 350 Mg/Ml 1 (05/16/19 23:30) Received Contrast (Hold Metformin- Contr (05/16/19 23:30) Sodium Chloride Flush (Catheter Flush Sy (05/16/19 23:30) Ns (Ivpb) (Sodium Chloride 0.9% Ivpb Bag (05/16/19 23:30) Medications Given in ED Current Medications Medications Dose Ordered Sig/Brissa Route Start Time Stop Time Status Last Admin Dose Admin Diphenhydramine HCl 25 mg ONCE ONCE IVP 05/16/19 23:15 05/16/19 23:16 DC 05/16/19 23:23 25 MG Iohexol 100 ml ONCE ONCE IV 05/16/19 23:30 05/16/19 23:31 DC 05/16/19 23:31 100 ML Ketorolac Tromethamine 30 mg ONCE ONCE IVP 05/16/19 23:15 05/16/19 23:16 DC 05/16/19 23:22 30 MG Prochlorperazine Edisylate 5 mg ONCE ONCE IV 05/16/19 23:15 05/16/19 23:16 DC 05/16/19 23:22 5 MG Sodium Chloride 10 ml NEEDED PRN IV 05/16/19 23:30 05/16/19 23:31 10 ML Sodium Chloride 100 ml ONCE ONCE IV 05/16/19 23:30 05/16/19 23:31 DC 05/16/19 23:31 80 ML Vital Signs/I&O 05/16/19 22:45 Temp 36.8 Pulse 108 Resp 18 B/P (MAP) 167/109 (128) Pulse Ox 95 O2 Delivery Room Air Progress Progress Note : Time: 23:15 Progress Note Discussed test results the patient. She has a white count of 17,000. Offered CT which she is willing to do. She does understand the risk of radiation but she wishes to proceed. She "just wants this pain to end". Order CT to rule out appendicitis. Departure Communication (Admissions) 234: Pain significantly relieved after Toradol Compazine and Benadryl. Does not want to receive a CT scan now. Wants to go home. She is stable for discha rge. Leukocytosis appears to be chronic. Advised her to call her doctor tomorrow for follow-up. Impression Primary Impression: Abdominal pain Disposition: HOME, SELF-CARE Condition: Improved Departure-Patient Inst. Decision time for Depature: 23:49 Referrals: [facility]/JENNIFER (PCP) Primary Care Physician MAYKEL CUMMINS APRN (Family) Primary Care Physician Patient Instructions: Acute Abdomen (Belly Pain), Adult (DC) Add. Discharge Instructions: Clear liquid diet for next 24 hours. Take Toradol as needed for pain. Call your doctor in the morning for follow-up. All discharge instructions reviewed with patient and/or family. Voiced understanding. Scripts Ketorolac Tromethamine (Ketorolac Tromethamine) 10 Mg Tablet 10 MG PO TID PRN for PAIN-MODERATE (5-7), #15 TAB Prov: ANN BLANCHARD MD 05/16/19 ANN BLANCHARD MD May 16, 2019 22:47
[2019-05-16 22:56] LABS: COLOR,URINE YELLOW
[2019-05-16 22:57] LABS: BACTERIA,URINE NEGATIVE /HPF; BILIRUBIN,URINE NEGATIVE (NEGATIVE); CLARITY,URINE CLEAR; GLUCOSE, URINE (UA) NEGATIVE (NEGATIVE); KETONES,URINE NEGATIVE (NEGATIVE); LEUKOCYTE ESTERASE ,URINE NEGATIVE (NEGATIVE); NITRITE,URINE NEGATIVE (NEGATIVE); PROTEIN,URINE NEGATIVE (NEGATIVE); RBC,URINE 0-2 /HPF
[2019-05-16 23:00] LABS: BASOPHILS # (AUTO) 0.1 10^3/uL (0.0-0.1); BASOPHILS % (AUTO) 0 % (0-10); EOSINOPHILS # (AUTO) 0.2 10^3/uL (0.0-0.3); EOSINOPHILS % (AUTO) 1 % (0-10); HEMATOCRIT 36 % (35-52); HEMOGLOBIN 12.1 G/DL (11.5-16.0); LYMPHOCYTES # (AUTO) 5.1 X 10^3 (1.0-4.0); LYMPHOCYTES % (AUTO) 30 % (12-44); MEAN CORPUSCULAR HEMOGLOBIN 30 PG (25-34); MEAN CORPUSCULAR HGB CONC 33 G/DL (32-36); MEAN CORPUSCULAR VOLUME 89 FL (80-99); MEAN PLATELET VOLUME 9.3 FL (7.4-10.4); MONOCYTES # (AUTO) 0.5 X 10^3 (0.0-1.0); MONOCYTES % (AUTO) 3 % (0-12); NEUTROPHILS # (AUTO) 11.2 X 10^3 (1.8-7.8); NEUTROPHILS % (AUTO) 65 % (42-75); PLATELET COUNT 430 10^3/uL (130-400); RED CELL DISTRIBUTION WIDTH 13.8 % (10.0-14.5); WHITE BLOOD COUNT 17.2 10^3/uL (4.3-11.0)
[2019-05-16] MEDS ORDERED: KETOROLAC 30 MG/ML VIAL IVP ONE (23:15)
[2019-05-16] MEDS ORDERED: diphenhydrAMINE 50 MG/ML INJ (BENADRYL) IVP ONE (23:15)
[2019-05-16] MEDS ORDERED: PROCHLORPERAZINE 10 MG/2ML INJ (COMPAZINE) IV ONE (23:15)
[2019-05-16 23:21] LABS: ALANINE AMINOTRANSFERASE 14 U/L (0-55); ALKALINE PHOSPHATASE 120 U/L (40-136); BILIRUBIN,TOTAL < 0.2 MG/DL (0.1-1.0); BUN/CREATININE RATIO 14; CALCIUM 8.9 MG/DL (8.5-10.1); CARBON DIOXIDE 21 MMOL/L (21-32); CHLORIDE 103 MMOL/L (98-107); CREATININE SERUM 0.76 MG/DL (0.60-1.30); GFR ESTIMATED > 60; GLUCOSE 122 MG/DL (70-105); LIPASE 47 U/L (8-78); POTASSIUM 3.5 MMOL/L (3.6-5.0); SODIUM 138 MMOL/L (135-145); TOTAL PROTEIN 7.3 GM/DL (6.4-8.2)
[2019-05-16] MEDS ORDERED: HOLD METFORMIN - RECEIVED CONTRAST 20 ML VIAL IV SCH (23:30)
[2019-05-16] MEDS ORDERED: CATHETER FLUSH 10 ML SYR IV PRN (23:30)
[2019-05-16] MEDS ORDERED: IOHEXOL 350 MG/ML 100 ML (OMNIPAQUE 350) VIAL IV ONE (23:30)
[2019-05-16] MEDS ORDERED: NS 100 ML (IVPB) BAG IV ONE (23:30)
[2019-05-16 23:37] LABS: LYMPHOCYTES % (MANUAL) 29 %; MONOCYTES % (MANUAL) 3 %; NEUTROPHILS % (MANUAL) 65 %; PLATELET ESTIMATE INCREASED; REACTIVE LYMPHOCYTES 3 %
[2019-05-16 23:38] LABS: MICROCYTOSIS SLIGHT
--- NOTE | 2019-05-16 23:50 | NUR ---
pt asking if she can go home and not wait for ct results, Dr Christine notified.
[2019-05-16] MEDS ORDERED: KETO10TA PO (23:51)
[2019-05-16 23:57] VITALS: BP 174/106
--- NOTE | 2019-05-17 07:09 | Diagnostic Imaging Report ---
PROCEDURE: CT abdomen and pelvis with contrast. TECHNIQUE: Multiple contiguous axial images were obtained through the abdomen and pelvis after administration of intravenous contrast. Auto Exposure Controls were utilized during the CT exam to meet ALARA standards for radiation dose reduction. INDICATION: Abdominal pain Lung bases are clear. There is fatty infiltration of the liver. Gallbladder surgically absent. Common duct is not dilated. Pancreas appears normal. Spleen is not enlarged. Adrenals are normal. Kidneys appear normal. Small bowel is not dilated. The appendix is normal. The colon is unremarkable. Uterus is surgically absent. Urinary bladder appears normal. IMPRESSION: No acute abnormality seen in the abdomen or pelvis. There is hepatic steatosis. Agree with preliminary interpretation. Dictated by: Dictated on workstation # [id number]
== END 2019-05-16 23:57 | disposition home or self-care (01) ==
LOC: EDUNIT# 22:30 → ER FS 22:32
DX: R10.30 Lower abdominal pain, unspecified (principal); J44.9 Chronic obstructive pulmonary disease, unspecified; G40.909 Epilepsy, unspecified, not intractable, without status epilepticus; G43.909 Migraine, unspecified, not intractable, without status migrainosus; F41.9 Anxiety disorder, unspecified; F32.9 Major depressive disorder, single episode, unspecified; K21.9 Gastro-esophageal reflux disease without esophagitis; Z87.442 Personal history of urinary calculi; Z88.8 Allergy status to other drugs, medicaments and biological substances; Z79.51 Long term (current) use of inhaled steroids; Z90.710 Acquired absence of both cervix and uterus; Z98.51 Tubal ligation status
CPT/HCPCS: 36415; 74177; 80053; 81000; 83690; 85007; 85027; 96374; 96375

== ENCOUNTER 2019-05-20 12:55 | Outpatient (CLI) | payer MEDICAID ==
[~2019-05-20] VITALS: Ht 152.4 cm; Wt 106.8 kg
[~2019-05-20 12:55] MED LIST changes: +KETO10TA PO
[2019-05-20] MEDS ORDERED: LISI-552 PO (13:24)
[2019-05-20] MEDS ORDERED: ESTR1TAB24 PO (13:27)
== END 2019-05-20 13:31 | disposition home or self-care (01) ==
LOC: PREOP 12:55
PROVIDERS: ATTEND Otolaryngology Otolaryngology/Facial Plastic Surgery
DX: Z01.818 Encounter for other preprocedural examination (principal)

== ENCOUNTER 2019-05-23 05:55 | Day surgery (SDC) | payer MEDICAID ==
[2019-05-23] VITALS (11 sets, daily range): BP systolic 117–150; BP diastolic 47–102
[~2019-05-23] VITALS: Ht 152 cm; Wt 106.8 kg
[~2019-05-23 05:55] MED LIST changes: -CLON0.5T13 PO; +CLON0.5T4 PO; +ESTR1TAB24 PO; +LISI-552 PO; +OFLO5DRO33 EACH EAR; +OFLO5DRO33 RIGHT EAR; -OFLO5DRO7 EACH EAR; -OFLO5DRO7 RIGHT EAR; +OMEP40CA27 PO; -OMEP40CA36 PO
[2019-05-23] MEDS ORDERED: LACTATED RINGERS 1,000 ML IV PRN (06:10)
--- NOTE | 2019-05-23 07:11 | Progress Note-Pre Operative ---
Pre-Operative Progress Note H&P Reviewed The H&P was reviewed, patient examined and no changes noted. Date Seen by Provider: May 23, 2019 Time Seen by Provider: 06:30 Date H&P Reviewed: May 23, 2019 Time H&P Reviewed: 06:30 Pre-Operative Diagnosis: BIA Thao MD May 23, 2019 07:11
[2019-05-23] MEDS ORDERED: LIDOCAINE PF 2% 5 ML (XYLOCAINE) VIAL ONE (07:17)
[2019-05-23] MEDS ORDERED: ONDANSETRON 4 MG/2 ML (SDV) Z0FRAN ONE (07:17)
[2019-05-23] MEDS ORDERED: DEXAMETHASONE 10 MG/ML (DECADRON) 1 ML VIAL ONE (07:17)
[2019-05-23] MEDS ORDERED: SEVOFLURANE (ULTANE) 15 ML INHAL SOLN ONE ×2 (07:17→08:04)
[2019-05-23] MEDS ORDERED: proPOfol 200 MG/20 ML (DIPRIVAN) VIAL IV ONE ×2 (07:17→08:04)
[2019-05-23] MEDS ORDERED: MIDAZOLAM 2 MG/2 ML (VERSED) VIAL ONE (07:18)
[2019-05-23] MEDS ORDERED: fentaNYL INJECTION 100 MCG/2 ML AMP ONE (07:18)
--- NOTE | 2019-05-23 08:22 | Progress Note-Post Operative ---
Post-Operative Progess Note Surgeon (s)/Telephoto Engineer (s) Surgeon BIA JIMENEZ MD Telephoto Engineer n/a Pre-Operative Diagnosis Bilat YEVGENIY Post-Operative Diagnosis same Post-Op Procedure Note Date of Procedure: May 23, 2019 Name of Procedure Performed: BMT Description & Findings Description and Findings: n/a Anesthesia Type lma Estimated Blood Loss minimal Packing none. Specimen(s) collected/removed culture left ear canal BIA JIMENEZ MD May 23, 2019 08:22
[2019-05-23] MEDS ORDERED: GENT5DRO30 EACH EAR (09:28)
[2019-05-23] MEDS ORDERED: ACETAMINOPHEN 500 MG TAB (TYLENOL) ONE (09:31)
[2019-05-23] MEDS ORDERED: ACETAMINOPHEN 500 MG TAB (TYLENOL) PO ONE (09:45)
--- NOTE | 2019-05-23 15:21 | Anesthesia-General Post-Op ---
General Patient Condition Mental Status/LOC: Same as Preop Cardiovascular: Satisfactory Nausea/Vomiting: Absent Respiratory: Satisfactory Pain: Controlled Complications: Absent Post Op Complications Complications None Follow Up Care/Instructions Patient Instructions None needed. Anesthesia/Patient Condition Patient Condition Patient is doing well, no complaints, stable vital signs, no apparent adverse anesthesia problems. No complications reported per nursing. AAYUSH ARROYO CRNA May 23, 2019 15:20
== END 2019-05-23 10:55 | disposition home or self-care (01) ==
LOC: SDC 05:55
PROVIDERS: ATTEND Otolaryngology Otolaryngology/Facial Plastic Surgery
DX: H65.93 Unspecified nonsuppurative otitis media, bilateral (principal); T85.698A Other mechanical complication of other specified internal prosthetic devices, implants and grafts, initial encounter; H69.93 Unspecified Eustachian tube disorder, bilateral; I10 Essential (primary) hypertension; J44.9 Chronic obstructive pulmonary disease, unspecified; G43.909 Migraine, unspecified, not intractable, without status migrainosus; Q05.9 Spina bifida, unspecified; M41.9 Scoliosis, unspecified; K21.9 Gastro-esophageal reflux disease without esophagitis; F32.9 Major depressive disorder, single episode, unspecified; F17.210 Nicotine dependence, cigarettes, uncomplicated; Z90.710 Acquired absence of both cervix and uterus; Z88.8 Allergy status to other drugs, medicaments and biological substances; Z90.49 Acquired absence of other specified parts of digestive tract
CPT/HCPCS: 87070; 87077; 87081

== ENCOUNTER → 2019-06-07 | Outpatient (CLI) | payer MEDICAID ==
[~2019-06-07] MED LIST changes: +GENT5DRO30 EACH EAR
--- NOTE | 2019-06-07 09:45 | Diagnostic Imaging Report ---
CLINICAL INDICATION: Patient with goiter. COMPARISONS: None. FINDINGS: THYROID NODULES: There is a 7 mm x 7 mm x 5 mm predominantly anechoic nodule with peripheral irregularity, located in the upper pole of the right thyroid lobe. There is an 8 mm x 6 mm x 5 mm heterogeneous, mixed hypoechoic/isoechoic nodule involving the inferior pole of the right thyroid lobe. There is no significant Doppler flow associated with this nodule. THYROID GLAND: Besides the thyroid nodules, the thyroid gland has normal size, shape and echogenicity. The right lobe measures 4.9 cm x 1.8 cm x 1.8 cm and the left lobe measures 3.8 cm x 1.1 cm x 1.5 cm in their three dimensions. ISTHMUS: The isthmus is unremarkable and measures 4 mm in thickness. IMPRESSION: 1: There are two benign-appearing nodules involving the upper pole and lower pole of the right lobe of the thyroid gland. The largest one measures 8 mm and is heterogeneous, and involves the inferior pole of the right thyroid lobe. 2: The remainder of the thyroid gland is unremarkable. Dictated by: Dictated on workstation # [id number]
== END ==
LOC: RAD 08:40
PROVIDERS: ATTEND Internal Medicine Gastroenterology
DX: E04.1 Nontoxic single thyroid nodule (principal); K92.2 Gastrointestinal hemorrhage, unspecified; R19.7 Diarrhea, unspecified; R19.8 Other specified symptoms and signs involving the digestive system and abdomen; R10.9 Unspecified abdominal pain
CPT/HCPCS: 36415; 76536; 85652; 86038; 86141

== ENCOUNTER 2019-06-27 19:24 | Emergency (ER) | payer MEDICAID ==
[~2019-06-27] VITALS: Ht 152 cm; Wt 107.0 kg
[2019-06-27 20:44] LABS: BILIRUBIN,URINE NEGATIVE (NEGATIVE); CLARITY,URINE CLEAR; COLOR,URINE YELLOW; GLUCOSE, URINE (UA) NEGATIVE (NEGATIVE); KETONES,URINE NEGATIVE (NEGATIVE); LEUKOCYTE ESTERASE ,URINE NEGATIVE (NEGATIVE); NITRITE,URINE NEGATIVE (NEGATIVE); PROTEIN,URINE NEGATIVE (NEGATIVE)
[2019-06-27 20:45] LABS: BACTERIA,URINE NEGATIVE /HPF; RBC,URINE RARE /HPF; WBC,URINE 0-2 /HPF
[2019-06-27] MEDS ORDERED: NS IV 1000 ML 1,000 ML IV STA (21:11)
[2019-06-27] MEDS ORDERED: fentaNYL INJECTION 100 MCG/2 ML AMP IVP STA (21:11)
[2019-06-27] MEDS ORDERED: ORPHENADRINE 60 MG/2 ML (NORFLEX) AMP IV STA (21:11)
[2019-06-27] MEDS ORDERED: KETOROLAC 30 MG/ML VIAL IVP STA (21:11)
--- NOTE | 2019-06-27 21:14 | ED General ---
General Chief Complaint: Back Problems Stated Complaint: ADB PAIN,LOWER BACK PAIN Nursing Triage Note: PT COMPLAINING OF LOWER BACK PAIN THAT STARTED YESTERDAY Nursing Sepsis Screen: No Definite Risk Source of Information: Patient History of Present Illness Date Seen by Provider: Jun 27, 2019 Time Seen by Provider: 20:48 Initial Comments 38-year-old female presenting with complaints of pain in her mid to low back that started yesterday. She has had some burning sensation in this area as well. She states that this feels different than her usual back pain. She has a sharp stabbing pain in her abdomen that comes and goes lasting just a second or 2 at a time that started this evening while she was laying down watching TV. She has potentially strained her back and abdomen with having to climb over the seats in the car to get to the front seat this morning when the vehicle was placed over. When the back of the vehicle was not placed so she had to climb through the vehicle to be able to get to the front. She denies any fall. However she does have a lot of chronic back pain and problems anyway. She's had previous ablation of some of the nerves in her back. She states that it feels like the burning sensation from when she had the ablation done for the burning sensation that she is having now. She has tried ibuprofen and ice with little to no relief at home. Allergies and Home Medications Allergies Coded Allergies: gabapentin (Verified Allergy, Unknown, 01/25/19) metoclopramide (Unverified Allergy, Unknown, "CAUSES PT TO LOSE CONTROL OF MUSCLES", 01/25/19) Home Medications Albuterol Sulfate 1 Puff Puff, 2 PUFF IH Q4H PRN for WHEEZING, (Reported) 1 PUFF = 90 MCG Baclofen 10 Mg Tablet, 10 MG PO Q8H PRN for back pain/spasm Prescribed by: LEIGH ANGEL on 06/27/19 2246 Estradiol 1 Mg Tablet, 1 MG PO DAILY, (Reported) Ethosuximide 250 Mg Capsule, 250 MG PO HS, (Reported) Fluoxetine HCl 40 Mg Capsule, 40 MG PO DAILY, (Reported) Fluticasone/Salmeterol 1 Each Blst.w.dev, 1 EACH IH BID, (Reported) Gentamicin Sulfate 5 Ml Drops, 3 DROPS EACH EAR BID Prescribed by: ALLAN DURON on 05/23/19 7241 Lisinopril 20 Mg Tablet, 20 MG PO DAILY, (Reported) Omeprazole 40 Mg Capsule.dr, 40 MG PO DAILY, (Reported) Patient Home Medication List Home Medication List Reviewed: Yes Review of Systems Review of Systems Constitutional: No chills, No fever EENTM: ear pain (chronic ear pain and recently just finished a course of Amoxil for infection) Respiratory: no symptoms reported Cardiovascular: no symptoms reported Gastrointestinal: see HPI Genitourinary: no symptoms reported Musculoskeletal: see HPI, back pain (chronic back pain issues) Skin: no symptoms reported Psychiatric/Neurological: See HPI; Denies Numbness, Denies Paresthesia Past Ismckkv-Akdsse-Mwuxpm Hx Past Med/Social Hx: Reviewed Nursing Past Med/Soc Hx Patient Social History Alcohol Use: Denies Use Recreational Drug Use: No Smoking Status: Current Everyday Smoker Type Used: Cigarettes 2nd Hand Smoke Exposure: No Recent Foreign Travel: No Contact w/Someone Who Travel: No Recent Infectious Disease Expo: No Recent Hopitalizations: No Physical Abuse: No Sexual Abuse: No Immunizations Up To Date Tetanus Booster (TDap): Unknown Seasonal Allergies Seasonal Allergies: Yes Past Medical History Surgeries: Yes (dental extractions, dxls, bmt, 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) Gallbladder, Hysterectomy, 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 Respiratory: Yes Asthma, COPD Currently Using CPAP: No Currently Using BIPAP: No Cardiac: Yes Heart Murmur, Hypertension Neurological: Yes Headaches /Migraines, Seizure Disorder 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 Disorders: Yes Female 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 Disorders: 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, 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 Sexually Transmitted Disease: No Genitourinary: Yes Kidney Stones Gastrointestinal: Yes Colitis, Gastroesophageal Reflux, Diverticulosis, Polyps, Ulcer Musculoskeletal: Yes (spina bifida) Arthritis, Scoliosis, Chronic Back Pain Endocrine: No HEENT: Yes Chronic Ear Infection Hearing Impairment: Hard of Hearing Cancer: No Psychosocial: Yes Anxiety, Depression Integumentary: No Blood Disorders: No Family Medical History No Pertinent Family Hx, GI Disease Physical Exam Vital Signs Vital Signs - First Documented 06/27/19 19:29 Temp 36.2 Pulse 110 Resp 16 B/P (MAP) 164/117 (133) Pulse Ox 100 O2 Delivery Room Air Capillary Refill : Less Than 3 Seconds Height, Weight, BMI Height: 5'0" Weight: 235lbs. 0oz. 106.773854oz; 46.00 BMI Method:Stated General Appearance: Mild Distress, Obese HEENT: PERRL/EOMI, Pharynx Normal Neck: Supple Respiratory: Chest Non Tender, Lungs Clear, Normal Breath Sounds Cardiovascular: Normal Peripheral Pulses, Tachycardia Gastrointestinal: Normal Bowel Sounds, No Pulsatile Mass, Soft; No Distended, No Guarding, No Mass, No Rebound; Tenderness (mild tenderness to palpation along her waistline) Rectal: Deferred Back: No CVA Tenderness; No CVA Tenderness (L), No CVA Tenderness (R); Muscle Spasm, Vertebral Tenderness (tender to palpation on her thoracic and lumbar vertebrae. 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 Norm as Tested Skin: Normal Color, Warm/Dry Progress/Results/Core Measures Suspected Sepsis Recent Fever Within 48 Hours: No Infection Criteria Present: None New/Unexplained Altered Menta: No Sepsis Screen: No Definite Risk SIRS Temperature: Pulse: 110 Respiratory Rate: 16 Laboratory Tests 06/27/19 21:15: White Blood Count 15.8H Blood Pressure 164 /117 Mean: 133 Laboratory Tests 06/27/19 21:15: Creatinine 0.69, Platelet Count 457H, Total Bilirubin 0.2 Results/Orders Lab Results Laboratory Tests Test 06/27/19 19:30 06/27/19 21:15 Range/Units Urine Color YELLOW Urine Clarity CLEAR Urine pH 6.0 5-9 Urine Specific [place] 1.025 H 1.016-1.022 Urine Protein NEGATIVE NEGATIVE Urine Glucose (UA) NEGATIVE NEGATIVE Urine Ketones NEGATIVE NEGATIVE Urine Nitrite NEGATIVE NEGATIVE Urine Bilirubin NEGATIVE NEGATIVE Urine Urobilinogen 0.2 < = 1.0 MG/DL Urine Leukocyte Esterase NEGATIVE NEGATIVE Urine RBC (Auto) NEGATIVE NEGATIVE Urine RBC RARE /HPF Urine WBC 0-2 /HPF Urine Squamous Epithelial Cells 2-5 /HPF Urine Crystals NONE /LPF Urine Bacteria NEGATIVE /HPF Urine Casts NONE /LPF Urine Mucus NONE /LPF Urine Culture Indicated NO White Blood Count 15.8 H 4.3-11.0 10^3/uL Red Blood Count 3.89 L 4.35-5.85 10^6/uL Hemoglobin 11.7 11.5-16.0 G/DL Hematocrit 35 35-52 % Mean Corpuscular Volume 90 80-99 FL Mean Corpuscular Hemoglobin 30 25-34 PG Mean Corpuscular Hemoglobin Concent 34 32-36 G/DL Red Cell Distribution Width 15.1 H 10.0-14.5 % Platelet Count 457 H 130-400 10^3/uL Mean Platelet Volume 9.1 7.4-10.4 FL Neutrophils (%) (Auto) 66 42-75 % Lymphocytes (%) (Auto) 27 12-44 % Monocytes (%) (Auto) 5 0-12 % Eosinophils (%) (Auto) 1 0-10 % Basophils (%) (Auto) 1 0-10 % Neutrophils # (Auto) 10.4 H 1.8-7.8 X 10^3 Lymphocytes # (Auto) 4.3 H 1.0-4.0 X 10^3 Monocytes # (Auto) 0.7 0.0-1.0 X 10^3 Eosinophils # (Auto) 0.2 0.0-0.3 10^3/uL Basophils # (Auto) 0.1 0.0-0.1 10^3/uL Neutrophils % (Manual) 71 % Lymphocytes % (Manual) 20 % Monocytes % (Manual) 4 % Eosinophils % (Manual) 3 % Basophils % (Manual) 1 % Band Neutrophils 1 % Sodium Level 140 135-145 MMOL/L Potassium Level 3.8 3.6-5.0 MMOL/L Chloride Level 103 98-107 MMOL/L Carbon Dioxide Level 26 21-32 MMOL/L Anion Gap 11 5-14 MMOL/L Blood Urea Nitrogen 10 7-18 MG/DL Creatinine 0.69 0.60-1.30 MG/DL Estimat Glomerular Filtration Rate > 60 BUN/Creatinine Ratio 14 Glucose Level 94 70-105 MG/DL Calcium Level 8.8 8.5-10.1 MG/DL Corrected Calcium 9.0 8.5-10.1 MG/DL Total Bilirubin 0.2 0.1-1.0 MG/DL Aspartate Amino Transf (AST/SGOT) 19 5-34 U/L Alanine Aminotransferase (ALT/SGPT) 16 0-55 U/L Alkaline Phosphatase 118 40-136 U/L Total Protein 6.9 6.4-8.2 GM/DL Albumin 3.8 3.2-4.5 GM/DL My Orders Orders - LEIGH ANGEL MD Ua Culture If Indicated (06/27/19 20:31) Comprehensive Metabolic Panel (06/27/19 21:11) Ed Iv/Invasive Line Start (06/27/19 21:11) Cbc With Automated Diff (06/27/19 21:11) Ns Iv 1000 Ml (Sodium Chloride 0.9%) (06/27/19 21:11) Ketorolac Injection (Toradol Injection) (06/27/19 21:11) Orphenadrine Injection (Norflex Injectio (06/27/19 21:11) Fentanyl Injection (Sublimaze Injection (06/27/19 21:11) Manual Differential (06/27/19 21:15) Methylprednisolone Sod Succ (Solu-Medrol (06/27/19 22:41) Hydromorphone Injection (Dilaudid Inject (06/27/19 22:41) Vital Signs/I&O 06/27/19 06/27/19 19:29 23:00 Temp 36.2 Pulse 110 90 Resp 16 16 B/P (MAP) 164/117 (133) 162/95 Pulse Ox 100 96 O2 Delivery Room Air Room Air Capillary Refill : Less Than 3 Seconds Blood Pressure Mean: 133 Progress Note #1: Progress Note Urinalysis did not demonstrate any acute specific abnormality other than elevated specific gravity. Her exam was benign other than showing chronic changes with tenderness over the vertebrae. Her abdominal exam had mild tenderness of the abdominal wall that she had no pain with deep palpation. Counseled patient that I did not see anything that looked worrisome on exam and it seemed to fit more with musculoskeletal type injuries. This would be more consistent with the history she provided of having to crawl through a vehicle and with the cold weather aggravating her symptoms. We will check basic labs and try medication for inflammation, muscle spasm, pain as well as try giving her some hydration. If her symptoms worsen or aren't changing consider a CT scan however she has had multiple scans and had a high degree of radiation in her life and currently her exam does not present worrisome findings that make me think that a scan with provide helpful clinical information. Patient was agreeable with plan. Progress Note #2: Time: 22:21 Progress Note On recheck of the patient her symptoms were improved. The blood work showed elevation of her white blood cell count but similar to elevations she has had previously. Her chemistry panel did not demonstrate any acute significant abnormality. Her fluids were almost infused. Will give some additional medication for pain and a steroid and prescribed a muscle relaxer for home. Counseled to continue some ice for inflammation at home and have her check back with the [facility] clinic during the day. Departure Impression Primary Impression: Strain of thoracic region Qualified Codes: S29.019A - Strain of muscle and tendon of unspecified wall of thorax, initial encounter Additional Impressions: Thoracic radiculopathy Strain of abdominal wall Qualified Codes: S39.011A - Strain of muscle, fascia and tendon of abdomen, initial encounter Acute myofascial strain of lumbar region Qualified Codes: S39.012A - Strain of muscle, fascia and tendon of lower back, initial encounter Disposition: HOME, SELF-CARE Condition: Stable Departure-Patient Inst. Decision time for Depature: 22:44 Referrals: [facility]/JENNIFER (PCP) Primary Care Physician MAYKEL CUMMINS APRN (Family) Primary Care Physician Patient Instructions: Muscle Strain (DC), Abdominal Muscle Strain (DC), Lumbar Muscle Strain (DC), Radiculopathy (DC) Add. Discharge Instructions: Continue with ice 15-20 minutes to area on back to help with pain and inflammation Check with clinic for continued pain and spasm of back All discharge instructions reviewed with patient and/or family. Voiced understanding. Scripts Baclofen (Baclofen) 10 Mg Tablet 10 MG PO Q8H PRN for back pain/spasm for 5 Days, #15 TAB 0 Refills Prov: LEIGH ANGEL MD 06/27/19 Images Torso/Trunk 1 - Tenderness (tender to palpation and reports burning sensation to thoracic and upper lumbar area especially) LEIGH ANGEL MD Jun 27, 2019 21:14
[2019-06-27 21:21] LABS: HEMOGLOBIN 11.7 G/DL (11.5-16.0); MEAN CORPUSCULAR HEMOGLOBIN 30 PG (25-34); WHITE BLOOD COUNT 15.8 10^3/uL (4.3-11.0)
[2019-06-27 21:22] LABS: BASOPHILS % (AUTO) 1 % (0-10); EOSINOPHILS % (AUTO) 1 % (0-10); HEMATOCRIT 35 % (35-52); LYMPHOCYTES % (AUTO) 27 % (12-44); MEAN CORPUSCULAR HGB CONC 34 G/DL (32-36); MEAN CORPUSCULAR VOLUME 90 FL (80-99); MEAN PLATELET VOLUME 9.1 FL (7.4-10.4); MONOCYTES % (AUTO) 5 % (0-12); NEUTROPHILS % (AUTO) 66 % (42-75); PLATELET COUNT 457 10^3/uL (130-400); RED CELL DISTRIBUTION WIDTH 15.1 % (10.0-14.5)
[2019-06-27 21:23] LABS: BASOPHILS # (AUTO) 0.1 10^3/uL (0.0-0.1); EOSINOPHILS # (AUTO) 0.2 10^3/uL (0.0-0.3); LYMPHOCYTES # (AUTO) 4.3 X 10^3 (1.0-4.0); MONOCYTES # (AUTO) 0.7 X 10^3 (0.0-1.0); NEUTROPHILS # (AUTO) 10.4 X 10^3 (1.8-7.8)
[2019-06-27 21:35] LABS: BAND NEUTROPHILS 1 %; BASOPHILS % (MANUAL) 1 %; EOSINOPHILS % (MANUAL) 3 %; LYMPHOCYTES % (MANUAL) 20 %; MONOCYTES % (MANUAL) 4 %; NEUTROPHILS % (MANUAL) 71 %
[2019-06-27 21:37] LABS: ALANINE AMINOTRANSFERASE 16 U/L (0-55); ALKALINE PHOSPHATASE 118 U/L (40-136); BILIRUBIN,TOTAL 0.2 MG/DL (0.1-1.0); BUN/CREATININE RATIO 14; CALCIUM 8.8 MG/DL (8.5-10.1); CARBON DIOXIDE 26 MMOL/L (21-32); CHLORIDE 103 MMOL/L (98-107); CREATININE SERUM 0.69 MG/DL (0.60-1.30); GFR ESTIMATED > 60; GLUCOSE 94 MG/DL (70-105); POTASSIUM 3.8 MMOL/L (3.6-5.0); SODIUM 140 MMOL/L (135-145); TOTAL PROTEIN 6.9 GM/DL (6.4-8.2)
[2019-06-27 21:38] LABS: ALBUMIN 3.8 GM/DL (3.2-4.5)
[2019-06-27] MEDS ORDERED: methylPREDNISolone 125 MG (Solu-MEDROL) VIAL IVP STA (22:41)
[2019-06-27] MEDS ORDERED: HYDROmorphone 2 MG/ML VIAL (DILAUDID) IV STA (22:41)
[2019-06-27] MEDS ORDERED: BACL10TA PO (22:46)
[2019-06-27 23:00] VITALS: BP 162/95
== END 2019-06-27 23:01 | disposition home or self-care (01) ==
LOC: EDUNIT# 19:24 → ER FS 19:25
DX: S29.019A Strain of muscle and tendon of unspecified wall of thorax, initial encounter (principal); S39.011A Strain of muscle, fascia and tendon of abdomen, initial encounter; S39.012A Strain of muscle, fascia and tendon of lower back, initial encounter; M54.14 Radiculopathy, thoracic region; J44.9 Chronic obstructive pulmonary disease, unspecified; I10 Essential (primary) hypertension; K21.9 Gastro-esophageal reflux disease without esophagitis; G40.909 Epilepsy, unspecified, not intractable, without status epilepticus; F41.9 Anxiety disorder, unspecified; F32.9 Major depressive disorder, single episode, unspecified; F17.210 Nicotine dependence, cigarettes, uncomplicated; Z88.8 Allergy status to other drugs, medicaments and biological substances; Z79.51 Long term (current) use of inhaled steroids; Z79.52 Long term (current) use of systemic steroids; X58.XXXA Exposure to other specified factors, initial encounter
CPT/HCPCS: 36415; 80053; 81000; 85007; 85027; 96361; 96374; 96375

== ENCOUNTER 2019-07-08 20:39 | Emergency (ER) | payer MEDICAID ==
[~2019-07-08] VITALS: Ht 152.4 cm; Wt 105.3 kg
[~2019-07-08 20:39] MED LIST changes: +BACL10TA PO
--- NOTE | 2019-07-08 20:53 | ED Abdominal Pain ---
General Stated Complaint: ABD PAIN Source of Information: Patient History of Present Illness Date Seen by Provider: Jul 08, 2019 Time Seen by Provider: 20:53 Initial Comments 38-year-old female presenting with left lower quadrant abdominal pain. She st ates this started around 1 PM. She tried taking a nap to see if that would help with her pain and was better when she woke up. However the pain started again this evening around 6:30 and has persisted. She tried taking 2 of her Levsin this evening but it was not helping with her pain. She continued to have intermittent sharp pain to the left lower quadrant without improvement. She was having no nausea this pain. She denies any change in her bowel movements her urination. She has had a bowel movement this evening since the pain started and it did not have an effect on the pain. She denies any fever or chills. She has chronic abdominal pain that states that this is higher than where her usual abdominal pain is at. She denies any fall or injury. She stated no evidence of taking her strain to aggravate her abdominal muscles Allergies and Home Medications Allergies Coded Allergies: gabapentin (Verified Allergy, Unknown, 01/25/19) metoclopramide (Unverified Allergy, Unknown, "CAUSES PT TO LOSE CONTROL OF MUSCLES", 01/25/19) Home Medications Albuterol Sulfate 1 Puff Puff, 2 PUFF IH Q4H PRN for WHEEZING, (Reported) 1 PUFF = 90 MCG Baclofen 10 Mg Tablet, 10 MG PO Q8H PRN for back pain/spasm Prescribed by: LEIGH ANGEL on 06/27/196 Estradiol 1 Mg Tablet, 1 MG PO DAILY, (Reported) Ethosuximide 250 Mg Capsule, 250 MG PO HS, (Reported) Fluoxetine HCl 40 Mg Capsule, 40 MG PO DAILY, (Reported) Fluticasone/Salmeterol 1 Each Blst.w.dev, 1 EACH IH BID, (Reported) Gentamicin Sulfate 5 Ml Drops, 3 DROPS EACH EAR BID Prescribed by: ALLAN DURON on 05/23/19 09 Lisinopril 20 Mg Tablet, 20 MG PO DAILY, (Reported) Omeprazole 40 Mg Capsule.dr, 40 MG PO DAILY, (Reported) Patient Home Medication List Home Medication List Reviewed: Yes Review of Systems Review of Systems Constitutional: No chills, No fever; malaise EENTM: No Symptoms Reported Respiratory: Denies Cough Cardiovascular: Denies Chest Pain Gastrointestinal: See HPI Genitourinary: Denies Burning, Denies Drainage; Flank Pain (left-sided); Denies Pain Musculoskeletal: No back pain, No muscle pain, No neck pain Skin: No change in color, No dryness, No rash Psychiatric/Neurological: Denies Headache, Denies Numbness, Denies Paresthesia, Denies Weakness Past Ubsbcak-Whblmr-Jdahmx Hx Past Med/Social Hx: Reviewed Nursing Past Med/Soc Hx Patient Social History Type Used: Cigarettes 2nd Hand Smoke Exposure: No Recent Foreign Travel: No Contact w/Someone Who Travel: No Recent Hopitalizations: No Immunizations Up To Date Tetanus Booster (TDap): Unknown Seasonal Allergies Seasonal Allergies: Yes Past Medical History Surgeries: Yes (dental extractions, dxls, bmt, 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) Gallbladder, Hysterectomy, 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 Respiratory: Yes Asthma, COPD Currently Using CPAP: No Currently Using BIPAP: No Cardiac: Yes Heart Murmur, Hypertension Neurological: Yes Headaches /Migraines, Seizure Disorder 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 Disorders: Yes Female 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 Disorders: 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 [employer]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, 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 Sexually Transmitted Disease: No Genitourinary: Yes Kidney Stones Gastrointestinal: Yes Colitis, Gastroesophageal Reflux, Diverticulosis, Polyps, Ulcer Musculoskeletal: Yes (spina bifida) Arthritis, Scoliosis, Chronic Back Pain Endocrine: No HEENT: Yes Chronic Ear Infection Hearing Impairment: Hard of Hearing Cancer: No Psychosocial: Yes Anxiety, Depression Integumentary: No Blood Disorders: No Family Medical History No Pertinent Family Hx, GI Disease Physical Exam Vital Signs Vital Signs - First Documented 07/08/19 07/09/19 21:04 00:38 Temp 36.1 Pulse 108 Resp 20 B/P (MAP) 160/95 (116) Pulse Ox 98 O2 Delivery Room Air Capillary Refill : Height/Weight/BMI Height: 5'0" Weight: 235lbs. 0oz. 106.384906fj; 46.00 BMI Method:Stated General Appearance: WD/WN, mild distress, obese HEENT: PERRL/EOMI, pharynx normal Neck: non-tender, full range of motion, supple, normal inspection Respiratory: chest non-tender, lungs clear, normal breath sounds Cardiovascular: normal peripheral pulses, regular rate, rhythm Gastrointestinal: normal bowel sounds, soft, no pulsatile mass; No distended, No guarding, No rebound; tenderness (left lower quadrant and periumbilical pain with palpation); No mass Rectal: deferred Extremities: normal range of motion, non-tender, normal inspection, no pedal edema, normal capillary refill Back: No no CVA tenderness 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, alert, oriented x 3 Skin: normal color, warm/dry Progress/Results/Core Measures Results/Orders Lab Results Laboratory Tests Test 07/08/19 20:45 07/08/19 21:53 Range/Units Urine Color YELLOW Urine Clarity SLT CLOUDY Urine pH 6.0 5-9 Urine Specific [place] >=1.030 1.016-1.022 Urine Protein NEGATIVE NEGATIVE Urine Glucose (UA) NEGATIVE NEGATIVE Urine Ketones NEGATIVE NEGATIVE Urine Nitrite NEGATIVE NEGATIVE Urine Bilirubin NEGATIVE NEGATIVE Urine Urobilinogen 0.2 < = 1.0 MG/DL Urine Leukocyte Esterase NEGATIVE NEGATIVE Urine RBC (Auto) TRACE H NEGATIVE Urine RBC 0-2 /HPF Urine WBC 0-2 /HPF Urine Squamous Epithelial Cells 10-25 H /HPF Urine Crystals NONE /LPF Urine Bacteria TRACE /HPF Urine Casts NONE /LPF Urine Mucus SMALL H /LPF Urine Culture Indicated NO White Blood Count 14.0 H 4.3-11.0 10^3/uL Red Blood Count 4.15 L 4.35-5.85 10^6/uL Hemoglobin 12.4 11.5-16.0 G/DL Hematocrit 37 35-52 % Mean Corpuscular Volume 89 80-99 FL Mean Corpuscular Hemoglobin 30 25-34 PG Mean Corpuscular Hemoglobin Concent 34 32-36 G/DL Red Cell Distribution Width 14.4 10.0-14.5 % Platelet Count 424 H 130-400 10^3/uL Mean Platelet Volume 9.4 7.4-10.4 FL Neutrophils (%) (Auto) 69 42-75 % Lymphocytes (%) (Auto) 23 12-44 % Monocytes (%) (Auto) 5 0-12 % Eosinophils (%) (Auto) 2 0-10 % Basophils (%) (Auto) 0 0-10 % Neutrophils # (Auto) 9.8 H 1.8-7.8 X 10^3 Lymphocytes # (Auto) 3.2 1.0-4.0 X 10^3 Monocytes # (Auto) 0.7 0.0-1.0 X 10^3 Eosinophils # (Auto) 0.3 0.0-0.3 10^3/uL Basophils # (Auto) 0.1 0.0-0.1 10^3/uL Neutrophils % (Manual) 64 % Lymphocytes % (Manual) 28 % Monocytes % (Manual) 5 % Eosinophils % (Manual) 2 % Basophils % (Manual) 0 % Band Neutrophils 1 % Sodium Level 138 135-145 MMOL/L Potassium Level 3.3 L 3.6-5.0 MMOL/L Chloride Level 101 98-107 MMOL/L Carbon Dioxide Level 24 21-32 MMOL/L Anion Gap 13 5-14 MMOL/L Blood Urea Nitrogen 7 7-18 MG/DL Creatinine 0.86 0.60-1.30 MG/DL Estimat Glomerular Filtration Rate > 60 BUN/Creatinine Ratio 8 Glucose Level 110 H 70-105 MG/DL Calcium Level 9.0 8.5-10.1 MG/DL Corrected Calcium 9.0 8.5-10.1 MG/DL Total Bilirubin 0.2 0.1-1.0 MG/DL Aspartate Amino Transf (AST/SGOT) 19 5-34 U/L Alanine Aminotransferase (ALT/SGPT) 15 0-55 U/L Alkaline Phosphatase 127 40-136 U/L Total Protein 7.3 6.4-8.2 GM/DL Albumin 4.0 3.2-4.5 GM/DL Lipase 21 8-78 U/L My Orders Orders - LEIGH ANGEL MD Ua Culture If Indicated (07/08/19 20:47) Comprehensive Metabolic Panel (07/08/19 21:56) Lipase (07/08/19 21:56) Ed Iv/Invasive Line Start (07/08/19 21:56) Cbc With Automated Diff (07/08/19 21:56) Ct Abdomen/Pelvis Wo (07/08/19 21:56) Ns Iv 1000 Ml (Sodium Chloride 0.9%) (07/08/19 21:57) Ketorolac Injection (Toradol Injection) (07/08/19 21:57) Manual Differential (07/08/19 21:53) Hydromorphone Injection (Dilaudid Inject (07/09/19 00:00) Rx-Hydrocodone/Apap 5-325 Mg (Rx-Vicodin (07/09/19 00:00) Medications Given in ED Current Medications Medications Dose Ordered Sig/Brissa Route Start Time Stop Time Status Last Admin Dose Admin Hydromorphone HCl 1 mg ONCE ONCE IV 07/09/19 00:00 07/09/19 00:01 DC 07/09/19 00:10 1 MG Vital Signs/I&O 07/08/19 07/09/19 21:04 00:38 Temp 36.1 Pulse 108 76 Resp 20 17 B/P (MAP) 160/95 (116) 137/89 Pulse Ox 98 O2 Delivery Room Air Room Air Progress Progress Note #1: Progress Note Check urinalysis to look for signs of infection. This did not show any acute infection but did have an elevated specific gravity for possible dehydration Advised patient that I would obtain labs and try giving some IV fluids for hydration. Even though she's had multiple CT scans having a lot of radiation will obtain a CT scan tonight to see if there is anything new or different since she is stating that this pain is worse and different than her usual abdominal pain. Try Toradol for her pain along with IV fluids for hydration. Progress Note #2: Progress Note Labs are stable for her is chronic elevation of her white blood cell count. Her chemistry were stable without acute significant abnormality. Her CT scan did not show any acute significant abnormality. Counseled patient on results and advised that she had nothing that would cause her to need emergent surgery or admission to the hospital. Will try an additional dose of pain medicine and discharged wit h a few hydrocodone. Counseled to call the clinic in the morning and follow-up through them for additional concerns. Diagnostic Imaging Diagonstic Imaging: CT Plain Films/CT/US/NM/MRI: abdomen, pelvis Comments Impression 1. Hepatic steatosis. 2. Nonobstructing calculus within the right kidney. No hydronephrosis. Read by Radiologist Rob Pompa M.D. at [phone] and faxed at [phone] Departure Impression Primary Impression: Left lower quadrant abdominal pain Additional Impression: Abdominal cramping Disposition: HOME, SELF-CARE Condition: Stable Departure-Patient Inst. Decision time for Depature: 00:30 Referrals: [facility]/JENNIFER (PCP) Primary Care Physician MAYKEL CUMMINS APRN (Family) Primary Care Physician Patient Instructions: Acute Abdomen (Belly Pain), Adult (DC) Add. Discharge Instructions: Stay well hydrated and drink plenty of water Check back with clinic tomorrow about your pain Try the pain medicine for severe pain and continue your home medicines LEIGH ANGEL MD Jul 08, 2019 20:53
[2019-07-08 21:23] LABS: BACTERIA,URINE TRACE /HPF; BILIRUBIN,URINE NEGATIVE (NEGATIVE); CLARITY,URINE SLT CLOUDY; COLOR,URINE YELLOW; GLUCOSE, URINE (UA) NEGATIVE (NEGATIVE); KETONES,URINE NEGATIVE (NEGATIVE); LEUKOCYTE ESTERASE ,URINE NEGATIVE (NEGATIVE); NITRITE,URINE NEGATIVE (NEGATIVE); PROTEIN,URINE NEGATIVE (NEGATIVE); RBC,URINE 0-2 /HPF; WBC,URINE 0-2 /HPF
[2019-07-08] MEDS ORDERED: NS IV 1000 ML 1,000 ML IV STA (21:57)
[2019-07-08] MEDS ORDERED: KETOROLAC 30 MG/ML VIAL IVP STA (21:57)
[2019-07-08 22:05] LABS: HEMATOCRIT 37 % (35-52); HEMOGLOBIN 12.4 G/DL (11.5-16.0); MEAN CORPUSCULAR HEMOGLOBIN 30 PG (25-34); MEAN CORPUSCULAR HGB CONC 34 G/DL (32-36); MEAN CORPUSCULAR VOLUME 89 FL (80-99)
[2019-07-08 22:06] LABS: BASOPHILS % (AUTO) 0 % (0-10); EOSINOPHILS % (AUTO) 2 % (0-10); LYMPHOCYTES # (AUTO) 3.2 X 10^3 (1.0-4.0); LYMPHOCYTES % (AUTO) 23 % (12-44); MEAN PLATELET VOLUME 9.4 FL (7.4-10.4); MONOCYTES # (AUTO) 0.7 X 10^3 (0.0-1.0); MONOCYTES % (AUTO) 5 % (0-12); NEUTROPHILS # (AUTO) 9.8 X 10^3 (1.8-7.8); NEUTROPHILS % (AUTO) 69 % (42-75); PLATELET COUNT 424 10^3/uL (130-400); RED CELL DISTRIBUTION WIDTH 14.4 % (10.0-14.5)
[2019-07-08 22:07] LABS: BASOPHILS # (AUTO) 0.1 10^3/uL (0.0-0.1); EOSINOPHILS # (AUTO) 0.3 10^3/uL (0.0-0.3)
[2019-07-08 22:26] LABS: ALANINE AMINOTRANSFERASE 15 U/L (0-55); ALKALINE PHOSPHATASE 127 U/L (40-136); BILIRUBIN,TOTAL 0.2 MG/DL (0.1-1.0); BUN/CREATININE RATIO 8; CARBON DIOXIDE 24 MMOL/L (21-32); CHLORIDE 101 MMOL/L (98-107); CREATININE SERUM 0.86 MG/DL (0.60-1.30); GFR ESTIMATED > 60; GLUCOSE 110 MG/DL (70-105); LIPASE 21 U/L (8-78); POTASSIUM 3.3 MMOL/L (3.6-5.0); SODIUM 138 MMOL/L (135-145); TOTAL PROTEIN 7.3 GM/DL (6.4-8.2)
[2019-07-08 22:27] LABS: BAND NEUTROPHILS 1 %; BASOPHILS % (MANUAL) 0 %; EOSINOPHILS % (MANUAL) 2 %; LYMPHOCYTES % (MANUAL) 28 %; MONOCYTES % (MANUAL) 5 %; NEUTROPHILS % (MANUAL) 64 %
[2019-07-09] MEDS ORDERED: RX-HYDROCODONE/APAP 5/325 MG #4 TAB PK PO PRN
[2019-07-09] MEDS ORDERED: HYDROmorphone 2 MG/ML VIAL (DILAUDID) IV ONE
--- NOTE | 2019-07-09 00:35 | NUR ---
RX-VICODEN GIVEN TO PT. PT DEPARTED FROM SYSTEM PRIOR TO ADMIN.
[2019-07-09 00:38] VITALS: BP 137/89
--- NOTE | 2019-07-09 06:10 | Diagnostic Imaging Report ---
PROCEDURE: CT abdomen and pelvis without contrast. TECHNIQUE: Multiple contiguous axial images were obtained through the abdomen and pelvis without the use of intravenous contrast. Auto Exposure Controls were utilized during the CT exam to meet ALARA standards for radiation dose reduction. INDICATION: Mid abdominal pain, history of stones and hysterectomy and cholecystectomy. COMPARISON: 05/16/2019. FINDINGS: The lung bases are clear. The heart is normal in size. There is fatty infiltration of the liver. Cholecystectomy clips are noted. The spleen appears normal. The pancreas appears normal. The adrenal glands appear normal. The kidneys are normal in contour. No hydronephrosis is seen. There is a punctate nonobstructing calculus at the inferior right kidney. The bowel loops are nondistended without obstruction. The appendix appears normal. No free fluid or free air is seen. No significant lymphadenopathy is seen. No acute osseous abnormality is seen. There is transitional anatomy at the lumbosacral junction. IMPRESSION: 1. Nonobstructing calculus in the right kidney. No obstructing calculi or hydronephrosis is seen. 2. Hepatic steatosis. Dictated by: Dictated on workstation # [id number]
== END 2019-07-09 00:38 | disposition home or self-care (01) ==
LOC: EDUNIT# 20:39 → ER FS 20:40
DX: R10.32 Left lower quadrant pain (principal); J44.9 Chronic obstructive pulmonary disease, unspecified; I10 Essential (primary) hypertension; K21.9 Gastro-esophageal reflux disease without esophagitis; F41.9 Anxiety disorder, unspecified; F32.9 Major depressive disorder, single episode, unspecified; G40.909 Epilepsy, unspecified, not intractable, without status epilepticus; Z88.8 Allergy status to other drugs, medicaments and biological substances; Z79.52 Long term (current) use of systemic steroids; Z79.51 Long term (current) use of inhaled steroids
CPT/HCPCS: 36415; 74176; 80053; 81000; 83690; 85007; 85027; 96361; 96374; 96375

== ENCOUNTER → 2019-07-26 | Outpatient (CLI) | payer MEDICAID ==
[~2019-07-26] MED LIST changes: +ACHYD1T PO; -HYDR-3820 PO
--- NOTE | 2019-07-26 09:54 | Diagnostic Imaging Report ---
EXAMINATION: CT of the temporal bones without contrast. INDICATION: Ear drainage for more than one year. 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 COMPARISON: None. TECHNIQUE: Thin section helical CT was performed through the temporal bones without contrast and reformatted into coronal and sagittal planes. Dose reduction techniques were utilized. FINDINGS: On the right, the external auditory canal is patent. Fluid is seen throughout the right middle ear cavity and right mastoid air cells. The tympanic membrane is thickened. The ossicles on the right appear intact. The scutum appears intact. There is thinning and possible dehiscence of the tegmen tympani and tegmen mastoideum. The internal auditory canal is of normal size. The course of the facial nerve is normal. There is no evidence of jugular bulb dehiscence. There is no aberrancy of the right internal carotid artery. There is thinning and likely dehiscence involving the roof of the superior semicircular canal on the right. The remaining semicircular canals, cochlea and vestibule demonstrate normal CT appearances. There is no enlargement of the vestibular aqueduct. On the left, the external auditory canal is patent. Postsurgical changes of follow-up mastoidectomy are noted. There is opacification throughout the mastoid air cells and middle ear cavity. The malleolus and incus have an irregular and erosive appearance without nancy destruction. The scutum is somewhat blunted. There is thinning of the tegmen tympani and tegmen mastoideum. The internal auditory canal is of normal size. The course of the facial nerve is normal. There is no evidence of jugular bulb dehiscence. There is no aberrancy of the left internal carotid artery. The semicircular canals, cochlea and vestibule demonstrate normal CT appearances. There is no enlargement of the vestibular aqueduct. Visualized intracranial contents demonstrate no evidence of mass effect. The basilar cisterns are patent. Temporomandibular joints are within normal limits. IMPRESSION: 1. Opacification throughout the mastoid air cells and middle ear cavity on the left with erosive changes involving the malleus, incus, and scutum. Postsurgical changes are also present in the mastoid air cells. These findings are suggestive of prior and/or recurrent cholesteatoma. Otomastoiditis may also have this appearance. Recommend correlation with physical exam and patient's symptoms. 2. Opacification throughout the right middle ear cavity and right mastoid air cells with thinning and possible dehiscence of the tegmen tympani and tegmen mastoideum. The ossicles and scutum are intact. These findings are more suggestive of otomastoiditis with cholesteatoma also a possibility. 3. Thinning and likely dehiscence involving the roof of the superior semicircular canal on the right. Recommend correlation with patient history and symptoms. Dictated by: Dictated on workstation # [id number]
== END ==
LOC: RAD FS 08:44
PROVIDERS: ATTEND Otolaryngology Otolaryngology/Facial Plastic Surgery
DX: H92.22 Otorrhagia, left ear (principal); Z98.890 Other specified postprocedural states
CPT/HCPCS: 70480

== ENCOUNTER 2019-08-10 22:38 | Emergency (ER) | payer MEDICAID ==
[~2019-08-10] VITALS: Ht 160 cm; Wt 105.1 kg
[2019-08-10] MEDS ORDERED: ONDANSETRON 4 MG (ZOFRAN) ORAL DISSOLVE TAB PO STA (23:09)
[2019-08-10] MEDS ORDERED: DICYCLOMINE 10 MG/ML (BENTYL) 2 ML AMP IM STA (23:09)
[2019-08-10 23:23] LABS: HEMATOCRIT 37 % (35-52); HEMOGLOBIN 12.2 G/DL (11.5-16.0); MEAN CORPUSCULAR HEMOGLOBIN 30 PG (25-34); MEAN CORPUSCULAR HGB CONC 33 G/DL (32-36); MEAN CORPUSCULAR VOLUME 90 FL (80-99); PLATELET COUNT 465 10^3/uL (130-400); RED CELL DISTRIBUTION WIDTH 14.1 % (10.0-14.5)
[2019-08-10 23:24] LABS: BASOPHILS # (AUTO) 0.1 10^3/uL (0.0-0.1); BASOPHILS % (AUTO) 1 % (0-10); EOSINOPHILS # (AUTO) 0.2 10^3/uL (0.0-0.3); EOSINOPHILS % (AUTO) 1 % (0-10); LYMPHOCYTES # (AUTO) 4.6 X 10^3 (1.0-4.0); LYMPHOCYTES % (AUTO) 23 % (12-44); MEAN PLATELET VOLUME 9.1 FL (7.4-10.4); MONOCYTES % (AUTO) 5 % (0-12); NEUTROPHILS % (AUTO) 70 % (42-75)
--- NOTE | 2019-08-10 23:29 | ED GI ---
General Chief Complaint: Abdominal/GI Problems Stated Complaint: STOMACHE PAIN Nursing Triage Note: PT presents with LLQ pain that started around 1800 tonight Sepsis Screen: No Definite Risk Source of Information: Patient Exam Limitations: No Limitations History of Present Illness Date Seen by Provider: Aug 10, 2019 Time Seen by Provider: 23:10 Initial Comments Onset of LL abdominal pain @ 1800 tonight while doing dishes. Hx of similar episodic abdominal pain in the past, she states weekly. Normal appetite, ate chicken for dinner. No constipation or diarrhea, normal BM today. No nausea or vomiting. No fever or chills. No Chest pain or soa. No back or flank pain or dysuria Allergies and Home Medications Allergies Coded Allergies: gabapentin (Verified Allergy, Unknown, 01/25/19) metoclopramide (Unverified Allergy, Unknown, "CAUSES PT TO LOSE CONTROL OF MUSCLES", 01/25/19) Home Medications Albuterol Sulfate 1 Puff Puff, 2 PUFF IH Q4H PRN for WHEEZING, (Reported) 1 PUFF = 90 MCG Baclofen 10 Mg Tablet, 10 MG PO Q8H PRN for back pain/spasm Prescribed by: LEIGH ANGEL on 06/27/192245 Ciprofloxacin HCl 500 Mg Tablet, 500 MG PO BID Prescribed by: MAYCOL GAGNON on 08/10/192346 Estradiol 1 Mg Tablet, 1 MG PO DAILY, (Reported) Ethosuximide 250 Mg Capsule, 250 MG PO HS, (Reported) Fluoxetine HCl 40 Mg Capsule, 40 MG PO DAILY, (Reported) Fluticasone/Salmeterol 1 Each Blst.w.dev, 1 EACH IH BID, (Reported) Gentamicin Sulfate 5 Ml Drops, 3 DROPS EACH EAR BID Prescribed by: ALLAN DURON on 05/23/19927 Hydrocodone/Acetaminophen 1 Each Tablet, 1 EACH PO Q4H Prescribed by: MAYCOL GAGNON on 08/10/192346 Lisinopril 20 Mg Tablet, 20 MG PO DAILY, (Reported) Metronidazole 500 Mg Tablet, 500 MG PO BID Prescribed by: MAYCOL GAGNON on 08/10/192346 Omeprazole 40 Mg Capsule.dr, 40 MG PO DAILY, (Reported) Ondansetron 4 Mg Tab.rapdis, 4 MG PO TID Prescribed by: MAYCOL GAGNON on 3/28/20 2347 Patient Home Medication List Home Medication List Reviewed: Yes Review of Systems Review of Systems Constitutional: no symptoms reported; No fever, No malaise, No weakness Respiratory: Denies Cough, Denies Shortness of Air Cardiovascular: Denies Chest Pain, Denies Edema, Denies Irregular Heart Rate Gastrointestinal: See HPI; Denies Abdomen Distended; Abdominal Pain; Denies Blood Streaked Stools, Denies Constipated, Denies Diarrhea, Denies Difficulty Swallowing, Denies Nausea, Denies Poor Appetite, Denies Poor Fluid Intake, Denies Rectal Bleeding, Denies Vomiting Genitourinary: Denies Burning, Denies Discharge, Denies Frequency, Denies Flank Pain, Denies Hematuria, Denies Pain, Denies Urgency Musculoskeletal: No back pain, No joint pain Past [id number]-[id number] Hx Past Med/Social Hx: Reviewed Nursing Past Med/Soc Hx Patient Social History Alcohol Use: Denies Use Recreational Drug Use: No Type Used: Cigarettes 2nd Hand Smoke Exposure: No Recent Foreign Travel: No Contact w/Someone Who Travel: No Recent Infectious Disease Expo: No Recent Hopitalizations: No Physical Abuse: No Sexual Abuse: No Immunizations Up To Date Tetanus Booster (TDap): Unknown Seasonal Allergies Seasonal Allergies: Yes Past Medical History Surgeries: Yes (dental extractions, dxls, bmt, 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) Gallbladder, Hysterectomy, 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 Respiratory: Yes Asthma, COPD Currently Using CPAP: No Currently Using BIPAP: No Cardiac: Yes Heart Murmur, Hypertension Neurological: Yes Headaches /Migraines, Seizure Disorder 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 Disorders: Yes Female 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 Disorders: 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, 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 Sexually Transmitted Disease: No Genitourinary: Yes Kidney Stones Gastrointestinal: Yes Colitis, Gastroesophageal Reflux, Diverticulosis, Polyps, Ulcer Musculoskeletal: Yes (spina bifida) Arthritis, Scoliosis, Chronic Back Pain Endocrine: No HEENT: Yes Chronic Ear Infection Hearing Impairment: Hard of Hearing Cancer: No Psychosocial: Yes Anxiety, Depression Integumentary: No Blood Disorders: No Family Medical History No Pertinent Family Hx, GI Disease Physical Exam Vital Signs Vital Signs - First Documented 08/10/19 22:41 Temp 36.8 Pulse 103 Resp 16 B/P (MAP) 162/90 (114) Pulse Ox 97 O2 Delivery Room Air Capillary Refill : Less Than 3 Seconds Height/Weight/BMI Height: 5'0" Weight: 235lbs. 0oz. [id number]; 41.00 BMI Method:Stated General Appearance: WD/WN, no apparent distress Respiratory: chest non-tender, lungs clear Cardiovascular: regular rate, rhythm, no edema Gastrointestinal: normal bowel sounds, soft, no organomegaly, no pulsatile mass; No distended, No guarding, No rebound; tenderness (mild LLQ); No hernia, No mass, No hepatomegaly, No spleenomegaly Back: normal inspection, no CVA tenderness, no vertebral tenderness Neurologic/Psychiatric: alert, normal mood/affect Skin: normal color, warm/dry Progress/Results/Core Measures Results/Orders Lab Results Laboratory Tests Test 08/10/19 23:12 Range/Units White Blood Count 20.0 H 4.3-11.0 10^3/uL Red Blood Count 4.09 L 4.35-5.85 10^6/uL Hemoglobin 12.2 11.5-16.0 G/DL Hematocrit 37 35-52 % Mean Corpuscular Volume 90 80-99 FL Mean Corpuscular Hemoglobin 30 25-34 PG Mean Corpuscular Hemoglobin Concent 33 32-36 G/DL Red Cell Distribution Width 14.1 10.0-14.5 % Platelet Count 465 H 130-400 10^3/uL Mean Platelet Volume 9.1 7.4-10.4 FL Neutrophils (%) (Auto) 70 42-75 % Lymphocytes (%) (Auto) 23 12-44 % Monocytes (%) (Auto) 5 0-12 % Eosinophils (%) (Auto) 1 0-10 % Basophils (%) (Auto) 1 0-10 % Neutrophils # (Auto) 14.0 H 1.8-7.8 X 10^3 Lymphocytes # (Auto) 4.6 H 1.0-4.0 X 10^3 Monocytes # (Auto) 1.0 0.0-1.0 X 10^3 Eosinophils # (Auto) 0.2 0.0-0.3 10^3/uL Basophils # (Auto) 0.1 0.0-0.1 10^3/uL Neutrophils % (Manual) 67 % Lymphocytes % (Manual) 25 % Monocytes % (Manual) 8 % Platelet Estimate INCREASED Sodium Level 138 135-145 MMOL/L Potassium Level 3.8 3.6-5.0 MMOL/L Chloride Level 100 98-107 MMOL/L Carbon Dioxide Level 22 21-32 MMOL/L Anion Gap 16 H 5-14 MMOL/L Blood Urea Nitrogen 11 7-18 MG/DL Creatinine 0.85 0.60-1.30 MG/DL Estimat Glomerular Filtration Rate > 60 BUN/Creatinine Ratio 13 Glucose Level 94 70-105 MG/DL Calcium Level 9.0 8.5-10.1 MG/DL Corrected Calcium 9.1 8.5-10.1 MG/DL Total Bilirubin 0.2 0.1-1.0 MG/DL Aspartate Amino Transf (AST/SGOT) 12 5-34 U/L Alanine Aminotransferase (ALT/SGPT) 13 0-55 U/L Alkaline Phosphatase 120 40-136 U/L Total Protein 7.2 6.4-8.2 GM/DL Albumin 3.9 3.2-4.5 GM/DL My Orders Orders - MAYCOL GAGNON DO Cbc With Automated Diff (08/10/19 23:09) Comprehensive Metabolic Panel (08/10/19 23:09) Abdomen Flat & Upright/Decub (08/10/19 23:09) Ondansetron Oral Dissolve Tab (Zofran (08/10/19 23:09) Dicyclomine Injection (Bentyl Injection) (08/10/19 23:09) Manual Differential (08/10/19 23:12) Hydrocodone/Apap 5/325 Tablet (Lortab 5 (08/11/19 00:30) Vital Signs/I&O 08/10/19 08/11/19 22:41 00:26 Temp 36.8 Pulse 103 88 Resp 16 16 B/P (MAP) 162/90 (114) 143/80 (114) Pulse Ox 97 95 O2 Delivery Room Air Room Air Blood Pressure Mean: 114 Departure Impression Primary Impression: LLQ abdominal pain Disposition: 01 HOME, SELF-CARE Condition: Stable Departure-Patient Inst. Decision time for Depature: 23:47 Referrals: [facility]JENNIFER (PCP) Primary Care Physician MAYEKL CUMMINS APRN (Family) Primary Care Physician Patient Instructions: Acute Abdomen (Belly Pain), Adult (DC) Add. Discharge Instructions: Fill your Prescriptions tomorrow morning and take them as directed for the next 1 week. Return to the ER if your pain gets worse, otherwise see your Doctor in 1 week. All discharge instructions reviewed with patient and/or family. Voiced understanding. Scripts Hydrocodone/Acetaminophen (Hydrocodone-Acetamin 5-325 mg) 1 Each Tablet 1 EACH PO Q4H for Abdominal Pain, #10 TAB Prov: MAYCOL GAGNON DO 08/10/19 Ondansetron (Ondansetron Odt) 4 Mg Tab.rapdis 4 MG PO TID for Nausea, #10 TAB Prov: MAYCOL GAGNON DO 08/10/19 Ciprofloxacin HCl (Ciprofloxacin HCl) 500 Mg Tablet 500 MG PO BID, #14 TAB Prov: MAYCOL GAGNON DO 08/10/19 Metronidazole (Flagyl) 500 Mg Tablet 500 MG PO BID, #14 TAB Prov: MAYCOL GAGNON DO 08/10/19 MAYCOL GAGNON DO Aug 10, 2019 23:29
[2019-08-10 23:34] LABS: LYMPHOCYTES % (MANUAL) 25 %; MONOCYTES % (MANUAL) 8 %; NEUTROPHILS % (MANUAL) 67 %; PLATELET ESTIMATE INCREASED
[2019-08-10 23:35] LABS: SODIUM 138 MMOL/L (135-145)
[2019-08-10 23:36] LABS: ALANINE AMINOTRANSFERASE 13 U/L (0-55); ALBUMIN 3.9 GM/DL (3.2-4.5); ALKALINE PHOSPHATASE 120 U/L (40-136); BILIRUBIN,TOTAL 0.2 MG/DL (0.1-1.0); BUN/CREATININE RATIO 13; CARBON DIOXIDE 22 MMOL/L (21-32); CHLORIDE 100 MMOL/L (98-107); CREATININE SERUM 0.85 MG/DL (0.60-1.30); GFR ESTIMATED > 60; GLUCOSE 94 MG/DL (70-105); POTASSIUM 3.8 MMOL/L (3.6-5.0); TOTAL PROTEIN 7.2 GM/DL (6.4-8.2)
[2019-08-10] MEDS ORDERED: CIPR500T4 PO (23:47)
[2019-08-10] MEDS ORDERED: ONDA4TAB11 PO (23:47)
[2019-08-10] MEDS ORDERED: HYDR-83 PO (23:47)
[2019-08-10] MEDS ORDERED: METR500T PO (23:47)
[2019-08-11 00:26] VITALS: BP 143/80
[2019-08-11] MEDS ORDERED: HYDROcodone/APAP 5 MG/325 MG (LORTAB) TAB PO ONE (00:30)
--- NOTE | 2019-08-11 06:48 | Diagnostic Imaging Report ---
INDICATION: Left lower quadrant pain. FINDINGS: Bowel gas pattern is nonspecific. There is no free air. There are surgical clips in the right upper quadrant. There are calcified phleboliths in the pelvis. IMPRESSION: Nonspecific bowel gas pattern. Dictated by: Dictated on workstation # [id number]
== END 2019-08-11 00:28 | disposition home or self-care (01) ==
LOC: EDUNIT# 22:38 → ER FS 22:40
DX: R10.32 Left lower quadrant pain (principal); F17.210 Nicotine dependence, cigarettes, uncomplicated; J44.9 Chronic obstructive pulmonary disease, unspecified; I10 Essential (primary) hypertension
CPT/HCPCS: 36415; 74019; 80053; 85007; 85027

== ENCOUNTER 2019-11-11 21:54 | Emergency (ER) | payer MEDICAID ==
[~2019-11-11] VITALS: Ht 152.4 cm; Wt 106.8 kg
[~2019-11-11 21:54] MED LIST changes: +HYDR-83 PO
[2019-11-11] MEDS ORDERED: FAMOTIDINE 20 MG (PEPCID) TABLET PO STA (22:13)
[2019-11-11] MEDS ORDERED: ANTACID SUSP 30 ML UDC (MYLANTA) PO ONE (22:15)
[2019-11-11] MEDS ORDERED: LIDOCAINE 2% VISCOUS 15 ML UDC PO ONE (22:15)
[2019-11-11] MEDS ORDERED: NS IV 1000 ML 1,000 ML IV SCH (22:15)
--- NOTE | 2019-11-11 22:21 | ED Abdominal Pain ---
General Chief Complaint: Abdominal/GI Problems Stated Complaint: ABD PAIN Nursing Triage Note: PT. REPORTED HAVING LOWER ABD. PAIN THAT STARTED AT 2100 TONIGHT. NO N/V/D. Sepsis Screen: Possible Severe Sepsis Risk Source of Information: Patient Exam Limitations: No Limitations History of Present Illness Date Seen by Provider: Nov 11, 2019 Time Seen by Provider: 22:02 Initial Comments Patient presents to ER by private conveyance from home with chief complaint that approximately one hour prior to arrival she was standing on her back porch and she started getting sharp pain in the middle of her lower abdomen nonradiating. She rates it as severe. She took 800 mg of ibuprofen without relief. She did not try anything else. She is not having any nausea fever chills diarrhea constipation or dysuria. She had a loose bowel movement 20 minutes prior to arrival but she states that's normal for her. She denies a history of irritable bowel syndrome or inflammatory bowel disease. She does have a history of multiple surgeries on her abdomen including several C-sections, tubal ligation, hysterectomy, gallbladder. She's had a couple laparoscopic procedures for endometriosis and she states more colonoscopies and EGDs than she can remember. Most recently she's had a colonoscopy less than a year ago by Dr. Brown which found a couple polyps. She denies a primary familial history or personal history of colon cancer. She states she has a history of hypertension and does not always remember to take her blood pressure medicine. She did take it before she came in though because she figured the pain would make her blood pressure high. Colonoscopy from February 2019 didn't have to unremarkable biopsies of stomach negative for H. pylori and 1 tubular adenoma from a colon biopsy. History of GERD, diverticulosis, polyps, peptic ulcer, cholecystitis, migraines, seizure disorder, endometriosis, Hard of Hearing, chronic back pain, anxiety, depression, kidney stones. Allergies and Home Medications Allergies Coded Allergies: gabapentin (Verified Allergy, Unknown, 01/25/19) metoclopramide (Unverified Allergy, Unknown, "CAUSES PT TO LOSE CONTROL OF MUSCLES", 01/25/19) Home Medications Albuterol Sulfate 1 Puff Puff, 2 PUFF IH Q4H PRN for WHEEZING, (Reported) 1 PUFF = 90 MCG Baclofen 10 Mg Tablet, 10 MG PO Q8H PRN for back pain/spasm Prescribed by: LEIGH ANGEL on 06/27/192245 Ciprofloxacin HCl 500 Mg Tablet, 500 MG PO BID Prescribed by: MAYCOL GAGNON on 08/10/192346 Estradiol 1 Mg Tablet, 1 MG PO DAILY, (Reported) Ethosuximide 250 Mg Capsule, 250 MG PO HS, (Reported) Fluoxetine HCl 40 Mg Capsule, 40 MG PO DAILY, (Reported) Fluticasone/Salmeterol 1 Each Blst.w.dev, 1 EACH IH BID, (Reported) Gentamicin Sulfate 5 Ml Drops, 3 DROPS EACH EAR BID Prescribed by: ALLAN DURON on 05/23/19927 Hydrocodone/Acetaminophen 1 Each Tablet, 1 EACH PO Q4H Prescribed by: MAYCOL GAGNON on 08/10/192346 Lisinopril 20 Mg Tablet, 20 MG PO DAILY, (Reported) Metronidazole 500 Mg Tablet, 500 MG PO BID Prescribed by: MAYCOL GAGNON on 08/10/192346 Omeprazole 40 Mg Capsule.dr, 40 MG PO DAILY, (Reported) Ondansetron 4 Mg Tab.rapdis, 4 MG PO TID Prescribed by: MAYCOL GAGNON on 08/10/192346 Patient Home Medication List Home Medication List Reviewed: Yes Review of Systems Review of Systems Constitutional: No chills, No fever, No malaise EENTM: No Blurred Vision, No Double Vision Respiratory: Denies Cough, Denies Shortness of Air Cardiovascular: Denies Chest Pain, Denies Lightheadedness Gastrointestinal: See HPI; Denies Abdomen Distended; Abdominal Pain; Denies Constipated, Denies Diarrhea, Denies Nausea Genitourinary: Denies Burning, Denies Discharge, Denies Drainage Musculoskeletal: No back pain, No joint pain Skin: No pruritus, No rash All Other Systems Reviewed Negative Unless Noted: Yes Past Vofjdks-Wxvcjr-Frrikc Hx Patient Social History Alcohol Use: Denies Use Recreational Drug Use: No Smoking Status: Current Everyday Smoker Type Used: Cigarettes 2nd Hand Smoke Exposure: No Recent Foreign Travel: No Contact w/Someone Who Travel: No Recent Infectious Disease Expo: No Recent Hopitalizations: No Physical Abuse: No Sexual Abuse: No Mistreated: No Fear: No Immunizations Up To Date Tetanus Booster (TDap): Unknown Seasonal Allergies Seasonal Allergies: Yes Past Medical History Surgeries: Yes (dental extractions, dxls, bmt, 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) Gallbladder, Hysterectomy, 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 Respiratory: Yes Asthma, COPD Currently Using CPAP: No Currently Using BIPAP: No Cardiac: Yes Heart Murmur, Hypertension Neurological: Yes Headaches /Migraines, Seizure Disorder 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 Disorders: Yes Female 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 Disorders: 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, 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 Sexually Transmitted Disease: No Genitourinary: Yes Kidney Stones Gastrointestinal: Yes Colitis, Gastroesophageal Reflux, Diverticulosis, Polyps, Ulcer Musculoskeletal: Yes (spina bifida) Arthritis, Scoliosis, Chronic Back Pain Endocrine: No HEENT: Yes Chronic Ear Infection Hearing Impairment: Hard of Hearing Cancer: No Psychosocial: Yes Anxiety, Depression Integumentary: No Blood Disorders: No Family Medical History No Pertinent Family Hx, GI Disease Physical Exam Vital Signs Vital Signs - First Documented 11/11/19 21:57 Temp 35.8 Pulse 108 Resp 20 B/P (MAP) 193/99 (130) Pulse Ox 96 O2 Delivery Room Air Capillary Refill : Less Than 3 Seconds Height/Weight/BMI Height: 5'0" Weight: 235lbs. 0oz. 106.128775cl; 45.00 BMI Method:Stated General Appearance: mild distress, obese HEENT: PERRL/EOMI, normal ENT inspection Neck: full range of motion, normal inspection Respiratory: normal breath sounds, no respiratory distress, no accessory muscle use Cardiovascular: normal peripheral pulses (heart rate 92), regular rate, rhythm Peripheral Pulses: 2+ Radial Pulses (R), 2+ Radial Pulses (L) Gastrointestinal: normal bowel sounds (active), non tender (to direct palpation all 4 quadrants well distracted), soft, no organomegaly; No rebound; other (negative for Link sign, Rovsing sign, psoas sign or McBurney's point tenderness or rebound) Extremities: normal range of motion, non-tender, normal inspection, normal capillary refill Neurologic/Psychiatric: alert, normal mood/affect, oriented x 3 Skin: normal color, warm/dry Focused Exam Lactate Level 11/11/19 22:20: Lactic Acid Level 0.80 Lactic Acid Level Laboratory Tests Test 11/11/19 22:20 Lactic Acid Level 0.80 MMOL/L (0.50-2.00) Progress/Results/Core Measures Results/Orders Lab Results Laboratory Tests Test 11/11/19 20:00 6/29/20 22:20 Range/Units Urine Color YELLOW Urine Clarity CLEAR Urine pH 6.0 5-9 Urine Specific [place] 1.025 H 1.016-1.022 Urine Protein NEGATIVE NEGATIVE Urine Glucose (UA) NEGATIVE NEGATIVE Urine Ketones NEGATIVE NEGATIVE Urine Nitrite NEGATIVE NEGATIVE Urine Bilirubin NEGATIVE NEGATIVE Urine Urobilinogen 0.2 < = 1.0 MG/DL Urine Leukocyte Esterase NEGATIVE NEGATIVE Urine RBC (Auto) NEGATIVE NEGATIVE Urine RBC NONE /HPF Urine WBC NONE /HPF Urine Squamous Epithelial Cells 10-25 H /HPF Urine Crystals NONE /LPF Urine Bacteria TRACE /HPF Urine Casts NONE /LPF Urine Mucus SMALL H /LPF Urine Culture Indicated NO Urine Opiates Screen NEGATIVE NEGATIVE Urine Oxycodone Screen NEGATIVE NEGATIVE Urine Methadone Screen NEGATIVE NEGATIVE Urine Propoxyphene Screen NEGATIVE NEGATIVE Urine Barbiturates Screen NEGATIVE NEGATIVE Ur Tricyclic Antidepressants Screen NEGATIVE NEGATIVE Urine Phencyclidine Screen NEGATIVE NEGATIVE Urine Amphetamines Screen NEGATIVE NEGATIVE Urine Methamphetamines Screen NEGATIVE NEGATIVE Urine Benzodiazepines Screen POSITIVE H NEGATIVE Urine Cocaine Screen NEGATIVE NEGATIVE Urine Cannabinoids Screen NEGATIVE NEGATIVE White Blood Count 15.5 H 4.3-11.0 10^3/uL Red Blood Count 3.88 L 4.35-5.85 10^6/uL Hemoglobin 11.6 11.5-16.0 G/DL Hematocrit 35 35-52 % Mean Corpuscular Volume 89 80-99 FL Mean Corpuscular Hemoglobin 30 25-34 PG Mean Corpuscular Hemoglobin Concent 34 32-36 G/DL Red Cell Distribution Width 14.4 10.0-14.5 % Platelet Count 425 H 130-400 10^3/uL Mean Platelet Volume 9.4 7.4-10.4 FL Neutrophils (%) (Auto) 66 42-75 % Lymphocytes (%) (Auto) 28 12-44 % Monocytes (%) (Auto) 4 0-12 % Eosinophils (%) (Auto) 1 0-10 % Basophils (%) (Auto) 1 0-10 % Neutrophils # (Auto) 10.2 H 1.8-7.8 X 10^3 Lymphocytes # (Auto) 4.4 H 1.0-4.0 X 10^3 Monocytes # (Auto) 0.6 0.0-1.0 X 10^3 Eosinophils # (Auto) 0.2 0.0-0.3 10^3/uL Basophils # (Auto) 0.1 0.0-0.1 10^3/uL Neutrophils % (Manual) 61 % Lymphocytes % (Manual) 32 % Monocytes % (Manual) 3 % Eosinophils % (Manual) 2 % Basophils % (Manual) 1 % Band Neutrophils 0 % Blood Morphology Comment NORMAL Sodium Level 139 135-145 MMOL/L Potassium Level 3.6 3.6-5.0 MMOL/L Chloride Level 101 98-107 MMOL/L Carbon Dioxide Level 25 21-32 MMOL/L Anion Gap 13 5-14 MMOL/L Blood Urea Nitrogen 12 7-18 MG/DL Creatinine 1.08 0.60-1.30 MG/DL Estimat Glomerular Filtration Rate 56 BUN/Creatinine Ratio 11 Glucose Level 98 70-105 MG/DL Lactic Acid Level 0.80 0.50-2.00 MMOL/L Calcium Level 9.2 8.5-10.1 MG/DL Corrected Calcium 9.1 8.5-10.1 MG/DL Total Bilirubin 0.2 0.1-1.0 MG/DL Aspartate Amino Transf (AST/SGOT) 31 5-34 U/L Alanine Aminotransferase (ALT/SGPT) 25 0-55 U/L Alkaline Phosphatase 124 40-136 U/L C-Reactive Protein 2.34 H <0.50 MG/DL Total Protein 7.3 6.4-8.2 GM/DL Albumin 4.1 3.2-4.5 GM/DL Lipase 29 8-78 U/L My Orders Orders - SAMREEN SNYDER Cbc With Automated Diff (11/11/19 22:13) Comprehensive Metabolic Panel (11/11/19 22:13) Crp Fs (11/11/19 22:13) Lipase (11/11/19 22:13) Ua Culture If Indicated (11/11/19 22:13) Drug Screen Stat (Urine) (11/11/19 22:13) Lidocaine 2% Viscous 15 Ml (Xylocaine Vi (11/11/19 22:15) Famotidine Tablet (Pepcid Tablet) (11/11/19 22:13) Antacid Suspension (Mylanta Suspension (11/11/19 22:15) Lactic Acid Analyzer (11/11/19 22:15) Ed Iv/Invasive Line Start (11/11/19 22:15) Ns Iv 1000 Ml (Sodium Chloride 0.9%) (11/11/19 22:15) Manual Differential (11/11/19 22:20) Ct Abdomen/Pelvis W (11/11/19 22:37) Iohexol Injection (Omnipaque 350 Mg/Ml 1 (11/11/19 22:45) Received Contrast (Hold Metformin- Contr (11/11/19 22:45) Ns (Ivpb) (Sodium Chloride 0.9% Ivpb Bag (11/11/19 22:45) Ketorolac Injection (Toradol Injection) (11/11/19 23:00) Medications Given in ED Current Medications Medications Dose Ordered Sig/Brissa Route Start Time Stop Time Status Last Admin Dose Admin Al Hydrox/Mg Hydrox/Simethicone 30 ml ONCE ONCE PO 11/11/19 22:15 11/11/19 22:16 DC 11/11/19 22:30 30 ML Iohexol 100 ml ONCE ONCE IV 11/11/19 22:45 11/11/19 22:46 DC 11/11/19 22:51 100 ML Ketorolac Tromethamine 30 mg ONCE ONCE IVP 11/11/19 23:00 11/11/19 23:01 DC 11/11/19 22:51 30 MG Lidocaine HCl 15 ml ONCE ONCE PO 11/11/19 22:15 11/11/19 22:16 DC 11/11/19 22:30 15 ML Sodium Chloride 100 ml ONCE ONCE IV 11/11/19 22:45 11/11/19 22:46 DC 11/11/19 22:51 100 ML Vital Signs/I&O 11/11/19 21:57 Temp 35.8 Pulse 108 Resp 20 B/P (MAP) 193/99 (130) Pulse Ox 96 O2 Delivery Room Air Blood Pressure Mean: 130 Progress Progress Note #1: Time: 22:20 Progress Note Loose stools, active bowel sounds and abdominal pain, could be colitis, diverticulitis, appendicitis versus adhesions. Because of the multitude surgery she's had there be some concern for an internal hernia and possible incarceration. We'll get some labs to include CRP and a lactate and give her a GI cocktail with Pepcid. She's had 2 abdominal CTs this year and they did demonstrate nonobstructing renal calculi so a ureteral calculus is also a possibility. Urinalysis has been sent for. Lipase has been ordered. Patient has had multiple encounters for care in the emergency room for lower quadrant episodic abdominal pain usually treated with opiates and without any specific findings. At this time she has a nonacute abdomen without septic vital signs. If the labs are unremarkable it would be reasonable to put her on a course of antibiotics which should cover for diverticulitis and be a potential c onservative management for appendicitis. Progress Note #2: Time: 23:34 Progress Note Marginal white count and CRP and patient denied any relief from GI cocktail. Toradol ordered. CT of the abdomen pelvis with IV contrast ordered which did not demonstrate any acute changes. Appendix unremarkable. No evidence of herniation. Lactate normal. Plan to have her follow-up outpatient with primary care. Antibiotics not indicated at this time. Diagnostic Imaging Diagonstic Imaging: CT Plain Films/CT/US/NM/MRI: abdomen, pelvis Comments CT abdomen pelvis with IV contrast shows no acute inflammatory disease or bowel obstruction. Reviewed: Reviewed by Me Departure Impression Primary Impression: Lower abdominal pain Additional Impression: IBS (irritable bowel syndrome) Qualified Codes: K58.0 - Irritable bowel syndrome with diarrhea Disposition: HOME, SELF-CARE Condition: Stable Departure-Patient Inst. Decision time for Depature: 23:30 Referrals: [facility] [place]) Primary Care Physician MAYKEL CUMMINS APRN (Family) Primary Care Physician Patient Instructions: Acute Abdomen (Belly Pain), Adult (DC), Irritable Bowel Syndrome (DC) Add. Discharge Instructions: We could not find any evidence of any emergent, dangerous source of your pain. I encourage you to follow-up with your primary care doctor by calling for an appointment tomorrow to discuss continuing the workup and management of your discomfort. Ibuprofen 800 mg every 8 hours as necessary for pain. Tylenol 1000 mg every 8 hours as necessary for pain. Pantoprazole 1 tablet 40 mg every day to reduce acid. If you have loose stools associated with abdominal pain you may try one tablet of hyoscyamine every 4 hours as needed. When you have follow-up with your primary care doctor then you may discuss whether this medication was helpful. All discharge instructions reviewed with patient and/or family. Voiced understanding. Scripts Hyoscyamine Sulfate (Hyoscyamine Sulfate) 0.125 Mg Tab.rapdis 0.125 MG PO Q4H PRN for DIARRHEA, #30 TAB 0 Refills diarrhea associated with abd pain Prov: SAMREEN SNYDER 11/11/19 SAMREEN SNYDER Nov 11, 2019 22:21
[2019-11-11 22:24] LABS: BACTERIA,URINE TRACE /HPF; BILIRUBIN,URINE NEGATIVE (NEGATIVE); CLARITY,URINE CLEAR; COLOR,URINE YELLOW; GLUCOSE, URINE (UA) NEGATIVE (NEGATIVE); KETONES,URINE NEGATIVE (NEGATIVE); LEUKOCYTE ESTERASE ,URINE NEGATIVE (NEGATIVE); NITRITE,URINE NEGATIVE (NEGATIVE); PROTEIN,URINE NEGATIVE (NEGATIVE)
[2019-11-11 22:33] LABS: AMPHETAMINE SCREEN, URINE NEGATIVE (NEGATIVE); BARBITURATE SCREEN URINE NEGATIVE (NEGATIVE); BENZODIAZEPINES SCREEN URINE POSITIVE (NEGATIVE); CANNABINOID SCREEN, URINE NEGATIVE (NEGATIVE); COCAINE SCREEN URINE NEGATIVE (NEGATIVE); METHADONE STAT NEGATIVE (NEGATIVE); METHAMPHETAMINE SCREEN URINE S NEGATIVE (NEGATIVE); OPIATE SCREEN URINE NEGATIVE (NEGATIVE); OXYCODONE STAT NEGATIVE (NEGATIVE); PROPOXYPHENE STAT NEGATIVE (NEGATIVE); TRICYCLIC ANTIDEPRESSANTS SCRE NEGATIVE (NEGATIVE)
[2019-11-11 22:33] LABS: BASOPHILS # (AUTO) 0.1 10^3/uL (0.0-0.1); BASOPHILS % (AUTO) 1 % (0-10); EOSINOPHILS # (AUTO) 0.2 10^3/uL (0.0-0.3); EOSINOPHILS % (AUTO) 1 % (0-10); HEMATOCRIT 35 % (35-52); HEMOGLOBIN 11.6 G/DL (11.5-16.0); LYMPHOCYTES # (AUTO) 4.4 X 10^3 (1.0-4.0); LYMPHOCYTES % (AUTO) 28 % (12-44); MEAN CORPUSCULAR HEMOGLOBIN 30 PG (25-34); MEAN CORPUSCULAR HGB CONC 34 G/DL (32-36); MEAN CORPUSCULAR VOLUME 89 FL (80-99); MEAN PLATELET VOLUME 9.4 FL (7.4-10.4); MONOCYTES # (AUTO) 0.6 X 10^3 (0.0-1.0); MONOCYTES % (AUTO) 4 % (0-12); NEUTROPHILS # (AUTO) 10.2 X 10^3 (1.8-7.8); NEUTROPHILS % (AUTO) 66 % (42-75); PLATELET COUNT 425 10^3/uL (130-400); RED CELL DISTRIBUTION WIDTH 14.4 % (10.0-14.5); WHITE BLOOD COUNT 15.5 10^3/uL (4.3-11.0)
[2019-11-11] MEDS ORDERED: IOHEXOL 350 MG/ML 100 ML (OMNIPAQUE 350) VIAL IV ONE (22:45)
[2019-11-11] MEDS ORDERED: NS 100 ML (IVPB) BAG IV ONE (22:45)
[2019-11-11] MEDS ORDERED: HOLD METFORMIN - RECEIVED CONTRAST 20 ML VIAL IV SCH (22:45)
[2019-11-11 22:51] LABS: ALBUMIN 4.1 GM/DL (3.2-4.5); BILIRUBIN,TOTAL 0.2 MG/DL (0.1-1.0); CALCIUM 9.2 MG/DL (8.5-10.1); CREATININE SERUM 1.08 MG/DL (0.60-1.30); POTASSIUM 3.6 MMOL/L (3.6-5.0); TOTAL PROTEIN 7.3 GM/DL (6.4-8.2)
[2019-11-11 22:52] LABS: BAND NEUTROPHILS 0 %; BASOPHILS % (MANUAL) 1 %; EOSINOPHILS % (MANUAL) 2 %; LYMPHOCYTES % (MANUAL) 32 %; MONOCYTES % (MANUAL) 3 %; NEUTROPHILS % (MANUAL) 61 %; RBC MORPH NORMAL
[2019-11-11] MEDS ORDERED: KETOROLAC 30 MG/ML VIAL IVP ONE (23:00)
[2019-11-11] MEDS ORDERED: HYOS-6 PO (23:42)
[2019-11-11 23:44] VITALS: BP 188/84
[2019-11-11] MEDS ORDERED: HYOSCYAMINE 0.125 MG (LEVSIN) TAB PO ONE (23:45)
--- NOTE | 2019-11-12 06:50 | Diagnostic Imaging Report ---
PROCEDURE: CT abdomen and pelvis with contrast. TECHNIQUE: Multiple contiguous axial images were obtained through the abdomen and pelvis after administration of intravenous contrast. Auto Exposure Controls were utilized during the CT exam to meet ALARA standards for radiation dose reduction. INDICATION: Abdominal pain. The previous CT abdomen/pelvis exam of 07/08/2019 noted 8 minute nonobstructive calculus within the right kidney but failed to show any sign of an acute abnormality. On this exam the nonobstructive calculus within the right kidney is difficult to appreciate. Both kidneys do show excretion of the contrast and there is no sign of obstruction of either collecting system. There is no evidence for a solid renal mass either. The liver is of lower density than usually seen. This does suggest fatty metamorphosis. As noted on the prior exam the gallbladder is surgically absent. The spleen, pancreas, adrenals, aorta and inferior vena cava are unremarkable for an acute abnormality. The stomach is filled with particular matter and consequently difficult to assess. There is no pelvic mass or free fluid collection noted. There is diverticulosis of the sigmoid colon and descending colon, but there is no sign of acute diverticulitis. The appendix is not abnormally thickened. The urinary bladder is grossly unremarkable. The uterus is surgically absent. The bone windows show no sign of a fracture or destructive lesion. The lung bases are clear. Impression: 1. There is no acute abnormality of the abdomen or pelvis. 2. The gallbladder and uterus are surgically absent. 3. 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 Dictated by: Dictated on workstation # [id number]
== END 2019-11-11 23:51 | disposition home or self-care (01) ==
LOC: EDUNIT# 21:54 → ER FS 21:54
DX: R10.32 Left lower quadrant pain (principal); R10.31 Right lower quadrant pain; K58.9 Irritable bowel syndrome, unspecified; K21.9 Gastro-esophageal reflux disease without esophagitis; J44.9 Chronic obstructive pulmonary disease, unspecified; F17.210 Nicotine dependence, cigarettes, uncomplicated; M54.9 Dorsalgia, unspecified; I10 Essential (primary) hypertension; G43.909 Migraine, unspecified, not intractable, without status migrainosus; G40.909 Epilepsy, unspecified, not intractable, without status epilepticus; Q05.9 Spina bifida, unspecified; M19.91 Primary osteoarthritis, unspecified site; F41.9 Anxiety disorder, unspecified; F32.9 Major depressive disorder, single episode, unspecified; Z90.710 Acquired absence of both cervix and uterus
CPT/HCPCS: 36415; 74177; 80053; 80306; 81000; 83605; 83690; 85007; 85027; 86141; 96361; 96374

== ENCOUNTER 2019-12-05 23:49 | Emergency (ER) | payer MEDICAID ==
[~2019-12-05] VITALS: Ht 152.4 cm; Wt 106.1 kg
[~2019-12-05 23:49] MED LIST changes: +HYOS-6 PO
--- OUTSIDE RECORDS SUMMARY | 2019-12-05 23:56 | XMS REPORT | Encounter Summary ---
Author Author [facility] Address Unknown Phone Unavailable Care Team Providers Care Senior Drafter Name Role Phone PCP Unavailable Encounter Details Care Team Description Date Type Department Avi Wallace DO [address] [place] [address] [phone] 05/23/2013 PracPart Note [facility] [address] [place] [address] Social History Date Tobacco Use Types Packs/Day Years Used Never Assessed Sex Assigned at Date Recorded Not on file Industry Job Start Date Occupation Not on file Not on file Not on file Travel End Travel History Travel Start No recent travel history available. documented as of this encounter Progress Notes * Avi Wallace DO - 05/23/2013 10:15 AM BRAILLE TRANSLATOR . :10:15AM .T:Rx Renew Request From: Originated by: Sent: 05/18/2013 at 04:03PM To: Prescription, User (RX) Type: RX Priority: 3 Subject: Rx Renew Request refilled with 3 additional refills jf A refill request has been received from the [employer] network. ATTENTION: Please compare the details of the prescription in practice partner (b y clicking "Link" button below) to be sure they match the details of the refill request in this message. Patient: Name: JAZZY LOPEZ Gender: F Date of : 1980 ID Number: [id number] Telephone: (Mtj) pamella-dNmichael Medication: Medication to be filled: FLUOXETINE 20MG CAP Sig: TAKE THREE CAPSULES BY MOUTH EVERY DAY. Quantity: 90 Each Days Supply 30 Refills: 2 Total Fills (Rx + Refills): 3 Substitution Status: Substitutions allowed Date of original prescription: 10/11/2012 Date medication last filled: 03/11/2013 Indication(s): (No Data Received) Pharmacy: Name: [facility] Pharmacist: Email: [phone] Prescriber: Name: AVI WALLACE Technical Data: (for reference) [employer] Message ID: [id number] Prescription Reference Number: [id number] Prescriber Order Number: [id number] Pharmacy SDPDP ID: [id number] documented in this encounter Plan of Treatment Not on filedocumented as of this encounter Visit Diagnoses Not on filedocumented in this encounter
--- OUTSIDE RECORDS SUMMARY | 2019-12-05 23:56 | XMS REPORT | Encounter Summary ---
Author Author [facility] Organization [facility] Address Unknown Phone Unavailable Care Team Providers Care Silver Plater Name Role Phone PCP Unavailable Encounter Details Care Team Description Date Type Department Avi Wolfe DO [address] [place], [place] [id number] 05/27/2013 Hist-Visit [facility] Social History Date Tobacco Use Types Packs/Day Years Used Never Assessed Sex Assigned at Date Recorded Not on file Industry Job Start Date Occupation Not on file Not on file Not on file Travel End Travel History Travel Start No recent travel history available. 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 : 10:44am .T: Return Patient .PV:S [facility] [address] [facility] [place] [address] [place] [address] [place] [address] [place] [address] Shabnam Dhillon M.D. Erasmo Dhillon M.D. Radha Carrasco M.D. Kalee Townsend M.D. Lubna Bourgeois D.O. Sabino Coronel M.D. Debbie Henry M.D. Avi Wolfe D.O. Lambert King M.D. Ana Spicer, MSN,RN,ANP, [facility] Robin Lund M.D., Ph.D. Juliano Wynne M.D. Raleigh Hagan M.D. . 05/27/13 Robin Concepcion MD [address] [facility] [address] [place] [address] RE: Jazzy Lopez : [address] Concepcion: I saw Jazzy in order to follow up on May 27. I saw her last March h regarding problematic migraines and seizures. For seizures, she is on topirama te 150 mg b.i.d. She has had 3 seizures since last seen. Her children witnessed these episodes. Stress may act as a trigger for headaches & seizures. Her seizures last about 5 or 10 minutes in duration, in which her arms flop and she is unresponsive.She does not bite her tongue or lose her stool or urine. She is sleepy afterwards. I initiated a trial of propranolol LA 60 mg daily, which she is tolerating well. She is experiencing less frequent migraines about every other day. On a scale of 1-10, they average about 6. Her migraines are characterized by a left frontal temporal throbbing headache, which sometimes spreads to the right. No aura or triggers. Her headaches are usually associated with photophobia, sonophobia, nausea, occasional emesis. Sumatriptan 100 mg usua lly helps. She is experiencing problems with her mood. She reports inappropriate laughter. She reports that she has been hospitalized for psychiatric illnesses. She is on fluoxetine 60 mg daily and buspirone 30 mg b.i.d. She does take diazepam 5 mg p. r.n. for dizziness either with or without migraine. When I talked about her mood, actually she has had no suicidal ideations or thou ghts. REVIEW OF SYSTEMS: Complete review of systems per patient questionnaire reviewed and documented in EMR, which I reviewed. FAMILY HISTORY AND SOCIAL HISTORY: Unchanged. PHYSICAL EXAMINATION: GENERAL: She is alert with normal speech. She had left TMJ tenderness. No scalp tenderness. VITAL SIGNS: BP is 130/80, pulse 106 per minute. She is afebrile. Weight 116 sheila nds. HEENT: Extraocular movements intact without nystagmus. Her pupils are 3 mm, roun d, reactive to light. Normal fundi. For her migraines without aura, I am increasing her propranolol LA to 120 mg waldo ly. I recommended she continue taking oral sumatriptan for abortive therapy. I p rescribed Phenergan 25 mg p.r.n. for nausea and vomiting. For her seizures, I am escalating the topiramate to 150 mg in the morning, 200 mg in the evening for 2 weeks, then 200 mg b.i.d if tolerated. I instructed her not to drive. I recomme nded to keep a seizure log and a headache log. I recommended she see you in [facility] regarding her psychiatric problems. I plan to see her in followup in the wa xt 2 months. She is supposed to call me in the interim if any questions or probl ems. Sincerely, Avi Wolfe D.O. # SIGNED BY Avi Wolfe DO (JYOTHI) 06/03/2013 12:24PM # REVISED BY Avi Wolfe DO (JYOTHI) 08/27/2013 09:58AM documented in this encounter Plan of Treatment Not on filedocumented as of this encounter Visit Diagnoses Not on filedocumented in this encounter
--- OUTSIDE RECORDS SUMMARY | 2019-12-05 23:56 | XMS REPORT | Encounter Summary ---
Author Author [facility] Address Unknown Phone Unavailable Care Team Providers Care Assistant Store Manager Operations Name Role Phone PCP Unavailable Encounter Details Care Team Description Date Type Department Avi Wolfe DO [address] [place] [address] [phone] 06/20/2013 PracPart Note [facility] ogy [address] [place] [address] Social History Date Tobacco Use Types Packs/Day Years Used Never Assessed Sex Assigned at Date Recorded Not on file Industry Job Start Date Occupation Not on file Not on file Not on file Travel End Travel History Travel Start No recent travel history available. documented as of this encounter Progress Notes * Avi Wolfe, - 06/20/2013 11:50 AM AIR CONDITIONING MECHANIC INDUSTRIAL . :11:50AM .T:patient call From: Bere Andrade (PO) Originated by: Bere Andrade (MANISH) Sent: 06/20/2013 at 10: 18AM To: Avi Wolfe ([facility]) Type: CHART Priority: 3 Subject: patient call she had only been on 60mg daily - the question is she to take the medication - n ow 120mg - just once daily or in a divided dose of 60mg b.i.d. - let me know - p o Original Message: From: MJS To: PO Subject: patient call Priority: 3 Date: 06/20/2013 Original Message: From: PO To: MJS Subject: patient call Priority: 3 Date: 06/20/2013 Nurse Note: PO Providers: : Physician Response: OK to change propranolol to LA 160 mg daily.RUSSS 06/20/13 Patient Last Visit Next Visit Reason for Call: This 32 year old female reports by phone that you increased her Propranolol LA t o 120mg daily but she thought she was to take 60mg twice daily but you sent the RX for 120mg daily. Let me know which is correct? - po 05/27/13 Robin Concepcion MD [address] [facility] [place] [address] [place] [address] RE: Jazzy Lopez : [address] Concepcion: I saw Jazzy in order to follow up on May 27. I saw her last March h regarding problematic migraines and seizures. For seizures, she is on topirama te 150 mg b.i.d. She has had 3 seizures since last seen. Her children witnessed these episodes. Stress and headaches may act as a trigger. Her seizures last abo ut 5 or 10 minutes in duration, in which her arms flop and she is unresponsive.S he does not bite her tongue or lose her stool or urine. She is sleepy afterward s. I initiated a trial of propranolol LA 60 mg daily, which she is tolerating we ll. She is experiencing less frequent migraines about every other day. On a scal e of 1-10, they average about 6. Her migraines are characterized by a left front al temporal throbbing headache, which sometimes spreads to the right. No aura or triggers. Her headaches are usually associated with photophobia, sonophobia, na usea, occasional emesis. Sumatriptan 100 mg usually helps. She is experiencing problems with her [...] log. I recommended she see you in [facility] regarding her psychiatric problems. I plan to see her in followup in the oh xt 2 months. She is supposed to call me in the interim if any questions or probl ems. Sincerely, Avi Wolfe D.O. documented in this encounter Plan of Treatment Not on filedocumented as of this encounter Visit Diagnoses Not on filedocumented in this encounter
--- OUTSIDE RECORDS SUMMARY | 2019-12-05 23:56 | XMS REPORT | Encounter Summary ---
Author Author [facility] Organization [facility] Address Unknown Phone Unavailable Care Team Providers Care Woodwork Salvage Inspector Name Role Phone PCP Unavailable Encounter Details Care Team Description Date Type Department Avi Wolfe DO [address] [facility] [address] [place] [address] [phone] 01/09/2014 PracPart Note [facility] ogy [address] [facility] [address] [place] [address] Social History Date Tobacco Use Types Packs/Day Years Used Never Assessed Sex Assigned at Date Recorded Not on file Industry Job Start Date Occupation Not on file Not on file Not on file Travel End Travel History Travel Start No recent travel history available. documented as of this encounter Progress Notes * Avi Wolfe, - 01/09/2014 5:08 PM CDT . :05:08PM .T:refill request From: Avi Wolfe ([facility]) Originated by: Avi Wolfe ([facility]) Sent: 01/09/2014 at 05:08PM To: Eliz Vivar ([place]) Type: RX Priority: 3 Subject: refill request Refill OK #30 diazapam 5 mg 1 tid prn dizziness.JYOTHI 01/09/14 Original Message: From: CO To: JYOTHI Subject: refill request Priority: 3 Date: 01/09/2014 Nurse Note: 01/09/14 Providers: : Physician Response: Reason for Call: This 33 year old female is requesting a refill for diazepam 5mg #[address] filled on 11/05/13. Please let me know if you would like to refill this medica tion and I would be happy to send it to her pharmacy. Thanks-CO Call this patient at Home yes 08/27/13 Robin Concepcion MD [address] [facility] [place] [address] [place] [address] RE: Jazzy Lopez : [address] Concepcion: I saw Jazzy in neurologic followup on August 27. I last saw her on May 27 regarding her problematic migraines and seizures. I had escalated her propran olol LA to 120 mg daily and her topiramate to 200mg b.i.d. She is very pleased o n how her migraines are doing. She tolerated medications well. She is experienci ng 1-2 migraines per month, relieved with sumatriptan 100 mg p.o. Phenergan help s the associated nausea, vomiting. She has dizziness with or without migraines, but diazepam 5 mg helps. Stress and poor sleep act as trigger of her migraines. The migraines are characterized by a left frontal temporal throbbing headache as sociated with photophobia, sonophobia, nausea, and occasional vomiting and dizzi ness. She has remained seizure free. REVIEW OF SYSTEMS: Complete review of systems per patient questionnaire reviewed documented EMR. Her mood is stable. She had a migraine 1 week ago, which trigge red by sinus infection treated with antibiotics. FAMILY AND SOCIAL HISTORY: Unchanged. MEDICATIONS: There is no change in her meds. PHYSICAL EXAMINATION: Her BP is 142/72. Initial heart rate was 108 per minute, r echecked it was 88 per minute. She is afebrile. Weight 215 pounds. She had left TMJ tenderness. No scalp tenderness. Normal speech. Normal gait. Extraocular mov ements intact without nystagmus. Pupils were 4 mm, round, reactive to light. Nor mal fundi. Her migraines are doing well. She remains seizure free.Will continue her medicat ion regimen. I refilled her diazepam 5 mg #30. Her mood is stable. I plan to see her in followup in the next 6 months. She is supposed to call in the interim if any questions or problems. Sincerely, Avi Wolfe D.O. documented in this encounter Plan of Treatment Not on filedocumented as of this encounter Visit Diagnoses Not on filedocumented in this encounter
--- OUTSIDE RECORDS SUMMARY | 2019-12-05 23:56 | XMS REPORT | Encounter Summary ---
Author Author [facility] Address Unknown Phone Unavailable Care Team Providers Care Social Group Worker Name Role Phone PCP Unavailable Encounter Details Care Team Description Date Type Department Avi Wolfe, DO [address] [address] [phone] 05/20/2014 Hist-Visit [facility] Social History Date Tobacco Use Types Packs/Day Years Used Never Assessed Sex Assigned at Date Recorded Not on file Industry Job Start Date Occupation Not on file Not on file Not on file Travel End Travel History Travel Start No recent travel history available. documented as of this encounter Plan of Treatment Not on filedocumented as of this encounter Visit Diagnoses Not on filedocumented in this encounter
--- OUTSIDE RECORDS SUMMARY | 2019-12-05 23:56 | XMS REPORT | Encounter Summary ---
Author Author [facility] Organization [facility] Address Unknown Phone Unavailable Care Team Providers Care Mobile Engineer Name Role Phone PCP Unavailable Encounter Details Care Team Description Date Type Department Avi Wolfe, [address] [facility] [address] [place] [address] [phone] 07/08/2013 PracPart Note [facility] ogy [address] [place] [address] Social History Date Tobacco Use Types Packs/Day Years Used Never Assessed Sex Assigned at Date Recorded Not on file Industry Job Start Date Occupation Not on file Not on file Not on file Travel End Travel History Travel Start No recent travel history available. documented as of this encounter Progress Notes * Avi Wolfe, - 07/08/2013 5:14 PM CLIENT SERVICE AND CONSULTING MANAGER . :05:14PM .T:patient call rx sent - po 07/09/13 From: Avi Wolfe (S) Originated by: Avi Wolfe (S) Sent: 07/08/2013 at 05:14PM To: Bere Andrade (PO) Type: CHART Priority: 3 Subject: patient call Original Message: From: PO To: [facility] Subject: patient call Priority: 3 Date: 07/08/2013 Nurse Note: PO Providers: : Physician Response: OK to change to immediate propranolol 60 mg bid #60 x 2 more refills.S 07/08/13 Patient Last Visit Next Visit Reason for Call: This 32 year old female reports by phone that insurance will not pay for the LA formulation of propranolol 120mg so is requesting an RX for twice daily dosing o f the regular as they used to pay for this. Let me know -po 05/27/13 Robin Concepcion MD [address] [facility] [place] [address] RE: Jazzy Lopez : [address] [...] other day. On a scal e of 1-10,they average about 6. Her migraines are characterized by a left fronta l temporal throbbing headache, which sometimes spreads to the right. No aura or triggers. Her headaches are usually associated with photophobia, sonophobia, elsa sea, occasional emesis. Sumatriptan 100 mg usually helps. [...] log. I recommended she see [facility] regarding her psychiatric problems. I plan to see her in followup in the ne xt 2 months. She is supposed to call me in the interim if any questions or probl ems. Sincerely, Avi Wolfe D.O. documented in this encounter Plan of Treatment Not on filedocumented as of this encounter Visit Diagnoses Not on filedocumented in this encounter
--- OUTSIDE RECORDS SUMMARY | 2019-12-05 23:56 | XMS REPORT | Encounter Summary ---
Author Author [facility] Organization [facility] Address Unknown Phone Unavailable Care Team Providers Care Garage Mechanic Name Role Phone PCP Unavailable Encounter Details Care Team Description Date Type Department [facility], Historical 04/23/2014 PracPart Note [facility] Social History Date Tobacco Use Types Packs/Day Years Used Never Assessed Sex Assigned at Date Recorded Not on file Industry Job Start Date Occupation Not on file Not on file Not on file Travel End Travel History Travel Start No recent travel history available. documented as of this encounter Progress Notes * [facility], Historical - 04/23/2014 1:17 PM GARLAND MAKER . : 01:17pm .T: Call diazepam rx sent Conchis menon on pharmacy line confirming rx - po The patient called to get a prescription refill. I transferred her to Paula. Angela Lozoya documented in this encounter Plan of Treatment Not on filedocumented as of this encounter Visit Diagnoses Not on filedocumented in this encounter
--- OUTSIDE RECORDS SUMMARY | 2019-12-05 23:56 | XMS REPORT | Encounter Summary ---
Author Author [facility] Organization [facility] Address Unknown Phone Unavailable Care Team Providers Care Gas Reverser Name Role Phone PCP Unavailable Encounter Details Care Team Description Date Type Department [facility], Historical 01/08/2014 PracPart Note [facility] Social History Date Tobacco Use Types Packs/Day Years Used Never Assessed Sex Assigned at Date Recorded Not on file Industry Job Start Date Occupation Not on file Not on file Not on file Travel End Travel History Travel Start No recent travel history available. documented as of this encounter Progress Notes * [facility], Historical - 01/08/2014 10:43 AM CDT . :10:43AM .T:FWD to From: Valerie Lopez (SACHA) Originated by: Valerie Lopez (SACHA) Sent: 01/08 at 10:43AM To: Iris Barnes () Type: CHART Priority: 3 Subject: FWD to I called the patient back and left a message letting her know I scheduled her fo r 02/13 arrive @ 9:30am SO. I let her know to call and reschedule if that doesn' t work for her. SACHA Original Message: From: To: SACHA Subject: FWD to VM Priority: 3 Date: 01/08/2014 Schedule with [facility]- Thank you documented in this encounter Plan of Treatment Not on filedocumented as of this encounter Visit Diagnoses Not on filedocumented in this encounter
--- OUTSIDE RECORDS SUMMARY | 2019-12-05 23:56 | XMS REPORT | Encounter Summary ---
Author Author [facility] Organization [facility] Address Unknown Phone Unavailable Care Team Providers Care Ice Cream Vault Worker Name Role Phone PCP Unavailable Encounter Details Care Team Description Date Type Department Erasmo Dhillon MD No Forwarding Address 07/22/2014 PracPart Note [facility] [address] [place] [address] Social History Date Tobacco Use Types Packs/Day Years Used Never Assessed Sex Assigned at Date Recorded Not on file Industry Job Start Date Occupation Not on file Not on file Not on file Travel End Travel History Travel Start No recent travel history available. documented as of this encounter Progress Notes * Erasmo Dhillon MD - 07/22/2014 10:56 AM CDT . :10:56AM .T:Rx Renew Request efaxed - po From: Prescription, User (RX) Originated by: Prescription, User (RX) Sent: 08/2014 at 08:26AM To: Prescription, User Type: RX Priority: 3 Subject: Rx Renew Request This refill authorization was referred to you by user RX. A refill request has been received from the [employer] network. ATTENTION: Please compare the details of the prescription in practice partner (b y clicking "Link" button below) to be sure they match the details of the refill request in this message. Patient: Name: JAZZY LOPEZ Gender: F Date of : 1980 Medication: Medication to be filled: SUMATRIPTAN 100MG TAB Sig: TAKE 1 TABLET BY MOUTH AT ONSET OF MIGRAINE, MAY REPEAT 1 TAB IN 2 HOURS, M AX OF 2 TABS PER 24 HOURS OR 2 DAYS PER WEEK Quantity: 9 Days Supply 5 Refills: 0 Total Fills (Rx + Refills): 1 Substitution Status: Substitutions allowed Date of original prescription: 07/08/2013 Date medication last filled: 01/03/2014 Indication(s): (No Data Received) Pharmacy: Name: [facility] Pharmacist: Prescriber: Name: BIA WALLACE Technical Data: (for reference) Zipscene Message ID: [id number] Prescription Reference Number: [id number] Prescriber Order Number: [id number] Pharmacy OKPDP ID: [id number] documented in this encounter Plan of Treatment Not on filedocumented as of this encounter Visit Diagnoses Not on filedocumented in this encounter
--- OUTSIDE RECORDS SUMMARY | 2019-12-05 23:56 | XMS REPORT | Encounter Summary ---
Author Author [facility] Address Unknown Phone Unavailable Care Team Providers Care Warehouse Packer Name Role Phone PCP Unavailable Encounter Details Care Team Description Date Type Department Avi Wolfe DO [address] [place] [address] [phone] 02/25/2014 PracPart Note [facility] [address] [place] [address] Social History Date Tobacco Use Types Packs/Day Years Used Never Assessed Sex Assigned at Date Recorded Not on file Industry Job Start Date Occupation Not on file Not on file Not on file Travel End Travel History Travel Start No recent travel history available. documented as of this encounter Progress Notes * Aiv Wolfe DO - 02/25/2014 4:01 PM CDT . : 04:01pm .T: chart note pt called to request valium 5mg rx - this was sent to Conchis lozoya documented in this encounter Plan of Treatment Not on filedocumented as of this encounter Visit Diagnoses Not on filedocumented in this encounter
--- OUTSIDE RECORDS SUMMARY | 2019-12-05 23:56 | XMS REPORT | Encounter Summary ---
Author Author [facility] Organization [facility] Address Unknown Phone Unavailable Care Team Providers Care Hairpiece Stylist Name Role Phone PCP Unavailable Encounter Details Care Team Description Date Type Department Juliano Wynne MD [address] [place] [address] [phone] 04/10/2013 [facility] [address] [place] [address] Social History Date Tobacco Use Types Packs/Day Years Used Never Assessed Sex Assigned at Date Recorded Not on file Industry Job Start Date Occupation Not on file Not on file Not on file Travel End Travel History Travel Start No recent travel history available. documented as of this encounter Progress Notes * Juliano Wynne MD - 04/10/2013 2:58 PM SOLAR ENERGY INSTALLATION MANAGER . : 02:58pm .T: Return Patient [facility] [address] [place] [address] [place] [address] [place] [address] [place] [address] Shabnam Dhillon M.D. Erasmo Dhillon M.D. Radha Carrasco M.D. Kalee Townsend M.D. Lubna Bourgeois D.O. Sabino Coronel M.D. Debbie Henry M.D. Avi Wolfe D.O. Lambert King M.D. Ana Spicer, MSN,RN,ANP,BC [facility] Robin Lund M.D., Ph.D. Juilano Wynne M.D. Raleigh Hagan M.D. . 04/10/13 Avi Ortiz M.D. RE: Jazzy Lopez : 78 Jazzy Lopez is followed under my neurological care for seizures and migraines. I recommend she remain on her current doses of medication prior and after myrin gotomy to maintain efficacy. Sincerely, Avi Wolfe D.O. # SIGNED BY Avi Wolfe DO (MJS) 04/15/2013 04:40PM documented in this encounter Plan of Treatment Not on filedocumented as of this encounter Visit Diagnoses Not on filedocumented in this encounter
--- OUTSIDE RECORDS SUMMARY | 2019-12-05 23:56 | XMS REPORT | Encounter Summary ---
Author Author [facility] Address Unknown Phone Unavailable Care Team Providers Care Head Sawyer Name Role Phone PCP Unavailable Encounter Details Care Team Description Date Type Department Avi Wolfe DO [address] [place] [address] [phone] 04/15/2013 PracPart Note [facility] [address] [place] [address] Social History Date Tobacco Use Types Packs/Day Years Used Never Assessed Sex Assigned at Date Recorded Not on file Industry Job Start Date Occupation Not on file Not on file Not on file Travel End Travel History Travel Start No recent travel history available. documented as of this encounter Progress Notes * Avi Wolfe DO - 04/15/2013 4:44 PM PERFORMANCE TEST ARCHITECT . :04:44PM .T:patient call pt notified - letter faxed - RX sent to Conchis lozoya From: Avi Wolfe (RUSSS) Originated by: Avi Wolfe (RUSSS) Sent: 04/15/2013 at 04:44PM To: Bere Andrade (MANISH) Type: CHART Priority: 3 Subject: patient call Original Message: From: MANISH To: JYOTHI Subject: patient call Priority: 3 Date: 04/10/2013 Nurse Note: PO Providers: : Physician Response: Letter signed.Chek with insurance auth for propranolol 20 mg bid for migraines.Myriam ROE 04/15/13 Patient Last Visit 04/02/13 Next Visit Reason for Call: This 32 year old female reports by phone that she is needing to get tubes placed in her ears and Dr. Avi Ortiz needs a surgical clearance letter faxed to [phone] (Letter in chart ready to sign). Also, insurance is not wanting to approve Propranolol LA 60mg and besides being given this for migraine and other reason - let me know - po 04/02/13 Robin Concepcion MD [address] [facility] [place] [address] [place] [address] RE: Jazzy Lopez : [address] Concepcion: I saw your patient Jazzy Lopez, date of 78 today in [facility]. The following medication was reported to me by the patient and may assist you: Current Medications: Rx: BUSPIRONE 30mg 1 twice daily Rx: OMEPRAZOLE 20mg 1 daily Rx: POTASSIUM GLUCONATE 1 daily Rx: ESTRADIOL 2mg 1 1/2 daily Rx: VALIUM 5mg 1 q 6-8h prn dizziness Rx: FLUOXETINE 20mg 3 caps daily Rx: SUMATRIPTAN 100 mg 1TAB as directed Rx: OXYCODONE-ACETAMINOPHEN 10/325mg 1 tab q 4hrs PRN Rx: TOPIRAMATE 100mg 1.5TAB twice daily Rx: VALIUM 5mg 1TAB q 6-8h prn dizziness Rx: INDERAL LA 60 mg 1TAB once daily The patient's vital signs taken today in my office are as follows: Bp: 131/69, Right Arm, Pulse: 117 Temperature: 97.8 F, Weight: 216 lbs I saw Jazzy on April 02. I last saw her on February 19 regarding problematic daily migraines. She was tapered off verapamil SR, but never got the propanolol LA started. She continues to have daily intractable migraines. On a scale of 1 to 10, they average about 8. Her migraines are usually in the left frontotem poral area, throbbing, and sometimes spread to the right frontotemporal area. S he occasionally has nausea and usually has photophobia and sonophobia. There is no aura or triggers. She does occasionally has pain in her left jaw, which farshad etimes triggers her migraine. Her insurance only allows #9 of sumatriptan 100 mg , and she usually runs out of this. On some occasions, she needs to re-dose. S he has been going to the [facility] about once per week where she gets a muscle relaxa nt and narcotics, which helps her medications modestly. Her mood is stable. Ivis shane is seizure-free on topiramate 150 mg bid. There is no change in her meds. Family history and social history is unchanged. On exam, her BP is 131/69. Initially her heart rate was 117 per minute and I rec hecked it, and it was 80 per minute. She is afebrile. She weighed 216 lbs. Sc alp was non-tender. She had some clicking in the left TMJ with some tenderness. Mood and affect appeared to be normal. She continues with problematic daily migraines. I am initiating trial of propa nolol LA 60 mg daily. Potential side effects were again discussed. I recommend ed she keep a headache log. She remains seizure-free on topiramate. She is sup posed to give me an update in the next four weeks. If she tolerates propanolol LA well, I plan on escalating the dose. I do feel that her TMJ may be one adam er of her migraines, but unfortuately her insurance does not cover her dentist. I plan on seeing her in followup in the next two months. She is supposed to anselmo l me in the interim if there are any questions or problems. Sincerely yours, Avi Wolfe D.O. JYOTHI/marcia documented in this encounter Plan of Treatment Not on filedocumented as of this encounter Visit Diagnoses Not on filedocumented in this encounter
--- OUTSIDE RECORDS SUMMARY | 2019-12-05 23:56 | XMS REPORT | Encounter Summary ---
Author Author [facility] Address Unknown Phone Unavailable Care Team Providers Care Transportation Manager Name Role Phone PCP Unavailable Encounter Details Care Team Description Date Type Department Erasmo Dhillon MD No Forwarding Address 09/30/2013 PracPart Note [facility] Neurol [facility] [address] [place] [address] Social History Date Tobacco Use Types Packs/Day Years Used Never Assessed Sex Assigned at Date Recorded Not on file Industry Job Start Date Occupation Not on file Not on file Not on file Travel End Travel History Travel Start No recent travel history available. documented as of this encounter Progress Notes * Erasmo Dhillon MD - 09/30/2013 3:38 PM CDT . :03:38PM .T:Call Transfer From: Bere Andrade (PO) Originated by: Bere Andrade (PO) Sent: 09/30/2013 at 03: 38PM To: Valerie Lopez (CA) Type: Priority: 3 Subject: Call Transfer spoke to the pt - RXs sent - po Original Message: From: CA To: PO Cc: CA Subject: Call Transfer Priority: 3 Date: 09/30/2013 The patient called to get prescription refills. I let her know I would transfer her to Bere's voicemail. CA documented in this encounter Plan of Treatment Not on filedocumented as of this encounter Visit Diagnoses Not on filedocumented in this encounter
--- OUTSIDE RECORDS SUMMARY | 2019-12-05 23:56 | XMS REPORT | Encounter Summary ---
Author Author [facility] Address Unknown Phone Unavailable Care Team Providers Care Winch Truck Operator Name Role Phone PCP Unavailable Encounter Details Care Team Description Date Type Department [facility], Historical 01/08/2014 PracPart Note [facility] Social History Date Tobacco Use Types Packs/Day Years Used Never Assessed Sex Assigned at Date Recorded Not on file Industry Job Start Date Occupation Not on file Not on file Not on file Travel End Travel History Travel Start No recent travel history available. documented as of this encounter Progress Notes * [facility], Historical - 01/08/2014 10:42 AM CDT . :10:42AM .T:Phone Call From: Padmini Pollack () Originated by: Padmini Pollack () Sent: 4 at 10:42AM To: Eliz Vivar (SPEEDY) Type: CHART Priority: 3 Subject: Phone Call Received call from patient in regards to rx refill transferred into voicemail jake documented in this encounter Plan of Treatment Not on filedocumented as of this encounter Visit Diagnoses Not on filedocumented in this encounter
--- OUTSIDE RECORDS SUMMARY | 2019-12-05 23:56 | XMS REPORT | Encounter Summary ---
Author Author [facility] Address Unknown Phone Unavailable Care Team Providers Care Wet Primer Powder Blender Name Role Phone PCP Unavailable Encounter Details Care Team Description Date Type Department Avi Wolfe DO [address] [facility] [address] [place] [address] [phone] 06/20/2013 PracPart Note [facility] ogy [address] [place] [address] Social History Date Tobacco Use Types Packs/Day Years Used Never Assessed Sex Assigned at Date Recorded Not on file Industry Job Start Date Occupation Not on file Not on file Not on file Travel End Travel History Travel Start No recent travel history available. documented as of this encounter Progress Notes * Avi Wolfe, - 06/20/2013 10:13 AM CLINICAL APPEALS RN . :10:13AM .T:patient call From: Avi Wolfe ([facility]) Originated by: Avi Wolfe ([place]) Sent: 06/20/2013 at 10:13AM To: Bere Andrade (PO) Type: CHART Priority: 3 Subject: patient call Original Message: From: PO To: JYOTHI Subject: patient call Priority: 3 Date: 06/20/2013 Nurse Note: PO Providers: : Physician Response: OK to change propranolol to LA 160 mg daily.MJS 06/20/13 Patient Last Visit Next Visit Reason for Call: This 32 year old female reports by phone that you increased her Propranolol LA t o 120mg daily but she thought she was to take 60mg twice daily but you sent the RX for 120mg daily. Let me know which is correct? - po 05/27/13 Robin Concepcion MD [address] [facility] [address] [place] [address] RE: Jazzy Lopez : [address] [...] instructed her not to drive. I recomme renato to keep a seizure log and a headache log. I recommended she see you in foll owup regarding her psychiatric problems. I plan to [...]
--- OUTSIDE RECORDS SUMMARY | 2019-12-05 23:56 | XMS REPORT | Encounter Summary ---
Author Author [facility] Organization [facility] Address Unknown Phone Unavailable Care Team Providers Care Inker Machine Name Role Phone PCP Unavailable Encounter Details Care Team Description Date Type Department Jose Rodriguez MD [address] [place] [address] [phone] 01/09/2014 PracPart Note [facility] ogy [address] [place] [address] Social History Date Tobacco Use Types Packs/Day Years Used Never Assessed Sex Assigned at Date Recorded Not on file Industry Job Start Date Occupation Not on file Not on file Not on file Travel End Travel History Travel Start No recent travel history available. documented as of this encounter Progress Notes * Jose Rodriguez MD - 01/09/2014 5:50 PM CDT . :05:50PM .T:refill request I have called in the rx to [facility] [place]. P t was notified. tm From: Avi Wolfe ([facility]) Originated by: Avi Wolfe ([facility]) Sent: 01/09/2014 at 05:08PM To: Eliz Vivar ([place]) Type: RX Priority: 3 Subject: refill request [...] Home yes 08/27/13 Robin Concepcion MD [address] [facility] [place] [address] [place] [address] RE: Jazzy Lopez : 78 [...]
--- OUTSIDE RECORDS SUMMARY | 2019-12-05 23:56 | XMS REPORT | Encounter Summary ---
Author Author [facility] Address Unknown Phone Unavailable Care Team Providers Care Microsoft Dynamics Ax Developer Name Role Phone PCP Unavailable Encounter Details Care Team Description Date Type Department Avi Wallace DO [address] [place] [address] [phone] 06/18/2013 PracPart Note [facility] ogy [address] [place] [address] Social History Date Tobacco Use Types Packs/Day Years Used Never Assessed Sex Assigned at Date Recorded Not on file Industry Job Start Date Occupation Not on file Not on file Not on file Travel End Travel History Travel Start No recent travel history available. documented as of this encounter Progress Notes * Avi Wallace DO - 06/18/2013 2:33 PM AIRPORT SECURITY SCREENER . :02:33PM .T:Rx Renew Request too soon to fill - po From: Originated by: Sent: 06/08/2013 at 12:30PM To: Prescription, User (RX) Type: RX Priority: 3 Subject: Rx Renew Request A refill request has been received from the [employer] network. ATTENTION: Please compare the details of the prescription in practice partner (b y clicking "Link" button below) to be sure they match the details of the refill request in this message. Patient: Name: JAZZY LOPEZ Gender: F Date of : 1980 ID Number: [id number] Telephone: (Xgq) pamella-dNmichael Medication: Medication to be filled: DIAZEPAM 5MG TAB Sig: TAKE ONE TABLET BY MOUTH EVERY 6 TO 8 HOURS NEEDED FOR DIZZINESS Quantity: 30 Each Days Supply 8 Refills: 0 Total Fills (Rx + Refills): 1 Substitution Status: Substitutions allowed Date of original prescription: 05/27/2013 Date medication last filled: 06/01/2013 Indication(s): (No Data Received) [facility] Pharmacist: Email: [phone] Prescriber: Name: AVI WALLACE Technical Data: (for reference) [employer] Message ID: [id number] Prescription Reference Number: [id number] Pharmacy LAPDP ID: [id number] documented in this encounter Plan of Treatment Not on filedocumented as of this encounter Visit Diagnoses Not on filedocumented in this encounter
--- OUTSIDE RECORDS SUMMARY | 2019-12-05 23:56 | XMS REPORT | Encounter Summary ---
Author Author [facility] Address Unknown Phone Unavailable Care Team Providers Care Sleeve Turner Name Role Phone PCP Unavailable Encounter Details Care Team Description Date Type Department Avi Wolfe DO [address] [place] [address] [place] [address] [phone] 09/30/2013 PracPart Note [facility] Neurol o[facility] [address] [place] [address] Social History Date Tobacco Use Types Packs/Day Years Used Never Assessed Sex Assigned at Date Recorded Not on file Industry Job Start Date Occupation Not on file Not on file Not on file Travel End Travel History Travel Start No recent travel history available. documented as of this encounter Progress Notes * Avi Wolfe DO - 09/30/2013 11:39 AM CDT . : 11:39am .T: chart note pt called to request RX for phenergan and valium - rx's sent to [facility] documented in this encounter Plan of Treatment Not on filedocumented as of this encounter Visit Diagnoses Not on filedocumented in this encounter
--- OUTSIDE RECORDS SUMMARY | 2019-12-05 23:56 | XMS REPORT | Encounter Summary ---
Author Author [facility] Address Unknown Phone Unavailable Care Team Providers Care Fresh Food Manager Name Role Phone PCP Unavailable Encounter Details Care Team Description Date Type Department Avi Wolfe DO [address] [place] [address] [phone] 06/20/2013 PracPart Note [facility] ogy [address] [place] [address] Social History Date Tobacco Use Types Packs/Day Years Used Never Assessed Sex Assigned at Date Recorded Not on file Industry Job Start Date Occupation Not on file Not on file Not on file Travel End Travel History Travel Start No recent travel history available. documented as of this encounter Progress Notes * Avi Wolfe, - 06/20/2013 11:49 AM LANDFILL GAS TECHNICIAN . :11:49AM .T:patient call From: Bere Andrade ([place]) Originated by: Bere Andrade (MANISH) Sent: 06/20/2013 at 10: 18AM To: Avi Wolfe ([facility]) Type: CHART Priority: 3 Subject: patient call [...] Concepcion MD [address] [facility] [address] [place] [address] RE: Jazzy Lopez : 78 [...] log. I recommended she see you in [facility] regarding her psychiatric problems. I plan to see her in followup in the sd xt 2 months. She is supposed to call me in the interim if any questions or probl ems. Sincerely, Avi Wolfe D.O. documented in this encounter Plan of Treatment Not on filedocumented as of this encounter Visit Diagnoses Not on filedocumented in this encounter
--- OUTSIDE RECORDS SUMMARY | 2019-12-05 23:56 | XMS REPORT | Clinical Summary ---
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 Last Filed Vital Signs Reading Time Taken Comments Vital Sign 142/72 08/27/2013 9:46 AM CDT Blood Pressure 109 08/27/2013 9:46 AM CDT Pulse 36.6 C (97.8 F) 08/27/2013 9:46 AM CDT Temperature - - Respiratory Rate - - Oxygen Saturation - - Inhaled Oxygen Concentration 97.5 kg (215 lb) 08/27/2013 9:46 AM CDT Weight 157.5 cm (5' 2") 08/27/2013 9:46 AM CDT Height 39.32 08/27/2013 9:46 AM CDT Body Mass Index Plan of Treatment Not on file Results Not on filefrom Last 3 Months
--- OUTSIDE RECORDS SUMMARY | 2019-12-05 23:56 | XMS REPORT | Encounter Summary ---
Author Author [facility] Organization [facility] Address Unknown Phone Unavailable Care Team Providers Care System Software Developer Name Role Phone PCP Unavailable Encounter Details Care Team Description Date Type Department Avi Wolfe DO [address] [facility] [address] [place] [address] [phone] 02/13/2014 Hist-Visit [facility] Social History Date Tobacco Use Types Packs/Day Years Used Never Assessed Sex Assigned at Date Recorded Not on file Industry Job Start Date Occupation Not on file Not on file Not on file Travel End Travel History Travel Start No recent travel history available. documented as of this encounter Progress Notes * Avi Wolfe DO - 02/13/2014 9:24 AM CDT . : 09:24am .T: Return Patient [facility] [address] [facility] [place] [address] [place] [address] [place] [address] [place] [address] [place] [address] Shabnam Dhillon M.D. Erasmo Dhillon M.D. Radha Carrasco M.D. Kalee Townsend M.D. Lubna Bourgeois D.O. Sabino Coronel M.D. Jose Rodriguez M.D. Debbie Henry M.D. Avi Wolfe D.O. Guevara Richardson M.D. Guevara Hernándezka, MSN,RN,ANP, [facility] Robin Lund M.D., Ph.D. Juliano Wynne M.D. Raleigh Hagan M.D. . 02/13/14 Robin Concepcion MD [address] [facility] [address] [place] [address] RE: Jazzy Lopez : [address] Concepcion: I saw Jazzy in neurologic followup on February 13. I last saw her on August 27t h regarding her migraines and seizure disorder. When last seen she was on propra nolol LA 120 mg daily, and topiramate 200 mg b.i.d. She decided to stop both of these medicines 4 months ago since she was doing well without any headaches or s eizures. She has been seizure free for several months. She only had one migraine 2 months ago for which she takes oral sumatriptan and Phenergan and her headache subsided. She has had intermittent dizziness without headache and with headache for which she takes diazepam 5 mg which helps. She has no problems with her mo od. REVIEW OF SYSTEMS: She was recently diagnosed with COPD and is on ProAir. MEDICATIONS: She is on no other medications. She takes Flexeril 10 mg b.i.d. p.r .n. SOCIAL HISTORY: She is trying to quit smoking and is down to about a pack of cig arettes per day. PHYSICAL EXAMINATION: VITAL SIGNS: Her BP is 149/72, pulse of 109 per minute. She is afebrile. Weight 215 pounds. NEUROLOGIC: Normal speech. Normal mood and affect. Normal gait. Scalp nontender. No TMJ or sinus tenderness. Cervical range of motion normal without tenderness. CARDIAC: Normal S1, S2, no murmurs or gallops. Her migraines are quite infrequent. I recommend she continue taking sumatriptan for abortive therapy and diazepam p.r.n. for dizziness either with or without her migraines. I am concerned that she may have a seizure off antiepileptic medi cation. I discussed treatment options and she agreed to a trial of Keppra 250 m g bid x2 weeks followed by 500 mg b.i.d. I discussed potential side effects. She is supposed to report any seizures to me. I told her that she needs to consult with her doctors before she decides to stop any of her medications. She underst ood. I plan to see her in followup in the next 3 months. She is supposed to call in the interim if any questions or problems. Sincerely, Avi Wolfe D.O. # SIGNED BY vAi Wolfe DO (MJS) 02/16/2014 10:01PM documented in this encounter Plan of Treatment Not on filedocumented as of this encounter Visit Diagnoses Not on filedocumented in this encounter
--- OUTSIDE RECORDS SUMMARY | 2019-12-05 23:56 | XMS REPORT | Encounter Summary ---
Author Author [facility] Address Unknown Phone Unavailable Care Team Providers Care Turn Down Attendant Name Role Phone PCP Unavailable Encounter Details Care Team Description Date Type Department Erasmo Dhillon MD No Forwarding Address 11/05/2013 PracPart Note [facility] Neurol ogy [address] [place] [address] Social History Date Tobacco Use Types Packs/Day Years Used Never Assessed Sex Assigned at Date Recorded Not on file Industry Job Start Date Occupation Not on file Not on file Not on file Travel End Travel History Travel Start No recent travel history available. documented as of this encounter Progress Notes * Erasmo Dhillon MD - 11/05/2013 3:00 PM CDT . :03:00PM .T:Call Transfer From: Bere Andrade (MANISH) Originated by: Bere Andrade (MANISH) Sent: 11/05/2013 at 03: 00PM To: Valerie Lopez (SACHA) Type: CHART Priority: 3 Subject: Call Transfer spoke to pt - RX sent to [facility] Original Message: From: CA To: PO Cc: CA Subject: Call Transfer Priority: 3 Date: 11/05/2013 The patient called to get a prescription refill. I let her know I would transfe r her to Bere's voicemail. CA documented in this encounter Plan of Treatment Not on filedocumented as of this encounter Visit Diagnoses Not on filedocumented in this encounter
--- OUTSIDE RECORDS SUMMARY | 2019-12-05 23:56 | XMS REPORT | Encounter Summary ---
Author Author [facility] Address Unknown Phone Unavailable Care Team Providers Care Assignment Editor Name Role Phone PCP Unavailable Encounter Details Care Team Description Date Type Department [facility], Historical 10/08/2013 PracPart Note [facility] Social History Date Tobacco Use Types Packs/Day Years Used Never Assessed Sex Assigned at Date Recorded Not on file Industry Job Start Date Occupation Not on file Not on file Not on file Travel End Travel History Travel Start No recent travel history available. documented as of this encounter Progress Notes * [facility], Historical - 10/08/2013 12:15 PM CDT . : 12:15pm .T: Wait list letter [facility] Shabnam Dhillon M.D. [address] Erasmo Dhillon M.D. [address] [place] [address] [place] [address] Kalee Townsend M.D. Lubna Bourgeois D.O. [address] Ben[address] Choi [facility]. Sabino Coronel M.D. [address] [place] [address] [place] [address] Nia Moeller M.D. Avi Wolfe D.O. Lambert King M.D. PH: [facility] Robin Lund M.D., Ph.D. Juliano Wynne M.D. Raleigh Hagan M.D. 10/08/13 Jazzy Lopez [address] [place] [address] Dear Jazzy Lopez, We are writing to remind you that it is time to make your follow up appointment for February 2014. At the time you were in the office our schedule was not avail able or you asked us to remind you later to schedule this appointment. We attem pted to call you, but youwere unavailable. Please contact our office at [phone] and follow the prompts to schedule you r appointment with Avi Wolfe. Thank you in advance for your attention in this matter. This will serve as the only reminder to schedule this appointment. Sincerely, Scheduling Department documented in this encounter Plan of Treatment Not on filedocumented as of this encounter Visit Diagnoses Not on filedocumented in this encounter
--- OUTSIDE RECORDS SUMMARY | 2019-12-05 23:56 | XMS REPORT | Encounter Summary ---
Author Author [facility] Organization [facility] Address Unknown Phone Unavailable Care Team Providers Care Applicator Sprayer Name Role Phone PCP Unavailable Encounter Details Care Team Description Date Type Department Avi Wolfe DO [address] [facility] [address] [place], [place] [id number] 08/27/2013 Hist-Visit [facility] Social History Date Tobacco [...] 08/27/2013 9:46 AM CDT Body Mass Index documented in this encounter Progress Notes * Avi Wolfe DO - 08/27/2013 5:55 AM CDT . : 05:55am .T: Return Patient [facility] [address] [facility] [place] [address] [place] [address] [place] [address] [place] [address] [place] [address] Shabnam Dhillon M.D. Erasmo Dhillon M.D. Radha Carrasco M.D. Kalee Townsend M.D. Lubna Bourgeois D.O. Sabino Coronel M.D. Jose Rodriguez M.D. Debbie Henry M.D. Avi Wolfe D.O. Lambert King M.D. Ana Spicer, MSN,RN,ANP, [facility] Robin Lund M.D., Ph.D. Juliano Wynne M.D. Raleigh Hagan M.D. . 08/27/13 Robin Concepcion MD [address] [place] [address] RE: Jazzy Lopez : [address] [...] Sincerely, Avi Wolfe D.O. # SIGNED BY Aiv Wolfe DO (MJS) 09/02/2013 05:48PM documented in this encounter Plan of Treatment Not on filedocumented as of this encounter Visit Diagnoses Not on filedocumented in this encounter
--- OUTSIDE RECORDS SUMMARY | 2019-12-05 23:57 | XMS REPORT | Encounter Summary ---
Author Author [facility] Organization [facility] Address Unknown Phone Unavailable Care Team Providers Care Fundraising Sale Representative Name Role Phone PCP Unavailable Encounter Details Care Team Description Date Type Department Avi Wallace DO [address] [place] [address] [phone] 10/11/2012 PracPart Note [facility] ogy [address] [place] [address] Social History Date Tobacco Use Types Packs/Day Years Used Never Assessed Sex Assigned at Date Recorded Not on file Industry Job Start Date Occupation Not on file Not on file Not on file Travel End Travel History Travel Start No recent travel history available. documented as of this encounter Progress Notes * Avi Wallace DO - 10/11/2012 8:16 AM CDT .D:13:08:16AM .T:Rx Renew Request RX efaxed - pt is on December wait list - po Denied- pt needs to make an appt-md From: Originated by: Sent: 10/10/2012 at 05:06PM To: Prescription, User (RX) Type: RX Priority: 3 Subject: Rx Renew Request A refill request has been received from the [employer] network. ATTENTION: Please compare the details of the prescription in practice partner (b y clicking "Link" button below) to be sure they match the details of the refill request in this message. Patient: Name: JAZZY LOPEZ Gender: F Date of : 1980 ID Number: [id number] Medication: Medication to be filled: TOPIRAMATE 100MG TAB Sig: TAKE ONE TABLET BY MOUTH TWICE DAILY Quantity: 60 Each Days Supply 30 Refills: 4 Total Fills (Rx + Refills): 5 Substitution Status: Substitutions allowed Date of original prescription: 08/05/2011 Date medication last filled: 07/31/2012 Indication(s): (No Data Received) Pharmacy: Name: [facility] Pharmacist: Email: [phone] Prescriber: Name: AVI WALLACE Technical Data: (for reference) [employer] Message ID: [id number] Prescription Reference Number: [id number] Prescriber Order Number: [id number] Pharmacy PAPDP ID: [id number] documented in this encounter Plan of Treatment Not on filedocumented as of this encounter Visit Diagnoses Not on filedocumented in this encounter
--- OUTSIDE RECORDS SUMMARY | 2019-12-05 23:57 | XMS REPORT | Encounter Summary ---
Author Author [facility] Address Unknown Phone Unavailable Care Team Providers Care Bulk Station Operator Name Role Phone PCP Unavailable Encounter Details Care Team Description Date Type Department Erasmo Dhillon MD No Forwarding Address 02/20/2013 PracPart Note [facility] [address] [place], [place] [id number] Social History Date Tobacco Use Types Packs/Day Years Used Never Assessed Sex Assigned at Date Recorded Not on file Industry Job Start Date Occupation Not on file Not on file Not on file Travel End Travel History Travel Start No recent travel history available. documented as of this encounter Progress Notes * Erasmo Dhillon MD - 02/20/2013 9:35 AM CDT . : 09:35am .T: patient call patient states pharmacy told her a PA is needed for propranolol - I asked that s he contact the pharmacy and have them fax this information - po documented in this encounter Plan of Treatment Not on filedocumented as of this encounter Visit Diagnoses Not on filedocumented in this encounter
--- OUTSIDE RECORDS SUMMARY | 2019-12-05 23:57 | XMS REPORT | Encounter Summary ---
Author Author [facility] Address Unknown Phone Unavailable Care Team Providers Care Cook Specialty Foreign Food Name Role Phone PCP Unavailable Encounter Details Care Team Description Date Type Department Avi Wolfe DO [address] [place] [address] [phone] 11/29/2012 PracPart Note [facility] Neurol [facility] [address] [place] [address] Social History Date Tobacco Use Types Packs/Day Years Used Never Assessed Sex Assigned at Date Recorded Not on file Industry Job Start Date Occupation Not on file Not on file Not on file Travel End Travel History Travel Start No recent travel history available. documented as of this encounter Progress Notes * Avi Wolfe, - 11/29/2012 5:09 PM CDT . :05:09PM .T:patient call From: Avi Wolfe (JYOTHI) Originated by: Avi Wolfe (JYOTHI) Sent: 11/29/2012 at 05:09PM To: Bere Andrade (MANISH) Type: CHART Priority: 3 Subject: patient call Original Message: From: MANISH To: JYOTHI Subject: patient call Priority: 3 Date: 11/29/2012 Nurse Note: PO Providers: : Physician Response: I left message for call back.JYOTHI 11/29/12 Patient Last Visit 03/29/12 Next Visit 12/13/12 Reason for Call: This 32 year old female reports by phone that she has had a headache daily for a lmost a week - noting that she went to the local ER Monday. She has tried gener ic Imitrex for two days but this has not helped. She didn't know if you might martinez ve any further recommendations prior to her appt on 12/13/12 - po 03/29/12 Robin Concepcion MD [address] [facility] [place] [address] [place] [address] RE: Jazzy Lopez : [address] Concepcion: I saw your patient Jazzy Lopez, date of 78 today in neurological [facility]. The following medication was reported to me by the patient and may assist you: Current Medications: Rx: BUSPIRONE 30mg 1 twice daily Rx: OMEPRAZOLE 20mg 1 daily Rx: POTASSIUM GLUCONATE 1 daily Rx: ESTRADIOL 2mg 1 1/2 daily Rx: VALIUM 5mg 1 q 6-8h prn dizziness Rx: SUMATRIPTAN 100 mg 1TAB as directed Rx: NABUMETONE 750mg 1 twice daily Rx: TOPIRAMATE 100mg 1TAB twice daily Rx: TRAMADOL 50mg every 6 hrs as needed Rx: FLUOXETINE 20mg 3 caps daily Rx: VALIUM 5mg 1TAB q 6-8h prn dizziness Rx: CALAN SR 180 mg 1TAB once daily I saw Jazzy on March 29. I last saw her on February 06 regarding her migr aines, associated dizziness, and left TMJ. She remains on topiramate 200 mg q h s. I initiated a trial of verapamil SR 120 mg q am with food, which she is tole rating well. She has had no recent migraines. She has rare left parietal headac hes described as a dull ache that resolve spontaneously and is non-disabling. S he is experiencing dizziness about once per day that lasts anywhere from 10 to 1 5 minutes in duration, sometimes vertiginous, and is triggered by certain head m ovements. Diazepam 5 mg helps. She denies any mood disturbance. She is unable to see a dental specialist regarding her TMJ since it is not covered by her insu ronda. She has not needed to take any sumatriptan for recent migraines. Her mood is stable on fluoxetine and BuSpar. She had no other problems. She martinez s an appointment coming up to see Tahmina Schwarz M.D. 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 Family history and social history is unchanged. On exam, she is alert. She had a slightly blunted affect. She weighed 171 lbs. BP was 124/80 with pulse of 84 per minute. Cervical ROM was normal without te nderness. There was no scalp tenderness. Extraocular movements were intact wit hout nystagmus. Pupils were 3 mm round and reactive to light. Gait was normal. She had left TMJ clicking. Her jaw deviated to the left with jaw opening. Th ere was no TMJ tenderness. Her migraines have improved. For her migraine-associated dizziness, I am increa sing her verapamil SR to 180 mg q am. I recommended she continue taking sumatri ptan as needed for migraines and diazepam prn for dizziness. I plan on seeing her in followup in the next three months, or earlier if further problems develop. Sincerely yours, Avi Wolfe D.O. JYOTHI/marcia cc Tahmina Schwarz M.D. documented in this encounter Plan of Treatment Not on filedocumented as of this encounter Visit Diagnoses Not on filedocumented in this encounter
--- OUTSIDE RECORDS SUMMARY | 2019-12-05 23:57 | XMS REPORT | Encounter Summary ---
Author Author [facility] Organization [facility] Address Unknown Phone Unavailable Care Team Providers Care Tax Advisor Name Role Phone PCP Unavailable Encounter Details Care Team Description Date Type Department Erasmo Dhillon MD No Forwarding Address 11/29/2012 PracPart Note [facility] Neurol ogy [address] [place] [address] Social History Date Tobacco Use Types Packs/Day Years Used Never Assessed Sex Assigned at Date Recorded Not on file Industry Job Start Date Occupation Not on file Not on file Not on file Travel End Travel History Travel Start No recent travel history available. documented as of this encounter Progress Notes * Erasmo Dhillon MD - 11/29/2012 1:09 PM CDT . :01:09PM .T:Rx Renew Request efaxed - po From: Originated by: Sent: 11/29/2012 at 12:39PM To: Prescription, User (RX) Type: RX Priority: 3 Subject: Rx Renew Request A refill request has been received from the [employer] network. ATTENTION: Please compare the details of the prescription in practice partner (b y clicking "Link" button below) to be sure they match the details of the refill request in this message. Patient: Name: JAZYZ LOPEZ Gender: F Date of : 1980 ID Number: [id number] Medication: Medication to be filled: SUMATRIPTAN 100MG TAB Sig: TAKE 1 TABLET AT ONSET OF HEADACHE, MAY REPEAT 1 TIME IN 2 HOURS, DO NOT EX CEED 2 TABS IN 24 HOURS AND NO MORE THAN 2 TIMES PER WEEK Quantity: 9 Each Days Supply 14 Refills: 5 Total Fills (Rx + Refills): 6 Substitution Status: Substitutions allowed Date of original prescription: 04/06/2012 Date medication last filled: 11/11/2012 Indication(s): (No Data Received) Pharmacy: Name: [facility] Pharmacist: Email: [phone] Prescriber: Name: IBA WALLACE Technical Data: (for reference) [employer] Message ID: [id number] Prescription Reference Number: [id number] Pharmacy DCPDP ID: [id number] documented in this encounter Plan of Treatment Not on filedocumented as of this encounter Visit Diagnoses Not on filedocumented in this encounter
--- OUTSIDE RECORDS SUMMARY | 2019-12-05 23:57 | XMS REPORT | Encounter Summary ---
Author Author [facility] Address Unknown Phone Unavailable Care Team Providers Care Auto Machinist Name Role Phone PCP Unavailable Encounter Details Care Team Description Date Type Department Avi Wolfe DO [address] [place] [address] [phone] 11/29/2012 PracPart Note [facility] Neurol o[facility] [address] [place] [address] Social History Date Tobacco Use Types Packs/Day Years Used Never Assessed Sex Assigned at Date Recorded Not on file Industry Job Start Date Occupation Not on file Not on file Not on file Travel End Travel History Travel Start No recent travel history available. documented as of this encounter Progress Notes * Avi Wolfe DO - 11/29/2012 5:16 PM CDT . : 05:16pm .T: above not is incorrect.MJS documented in this encounter Plan of Treatment Not on filedocumented as of this encounter Visit Diagnoses Not on filedocumented in this encounter
--- OUTSIDE RECORDS SUMMARY | 2019-12-05 23:57 | XMS REPORT | Encounter Summary ---
Author Author [facility] Organization [facility] Address Unknown Phone Unavailable Care Team Providers Care Barker Operator Name Role Phone PCP Unavailable Encounter Details Care Team Description Date Type Department Avi Wolfe DO [address] [place] [address] [phone] 09/05/2012 PracPart Note [facility] ogy [address] [place] [address] Social History Date Tobacco Use Types Packs/Day Years Used Never Assessed Sex Assigned at Date Recorded Not on file Industry Job Start Date Occupation Not on file Not on file Not on file Travel End Travel History Travel Start No recent travel history available. documented as of this encounter Progress Notes * Avi Wolfe DO - 09/05/2012 8:19 AM CDT . :08:19AM .T:Rx Renew Request Denied-pt needs to make an appt-md From: Originated by: Sent: 09/05/2012 at 05:02AM To: Prescription, User (RX) Type: RX Priority: 3 Subject: Rx Renew Request A refill request has been received from the [employer] network. ATTENTION: Please compare the details of the prescription in practice partner (b y clicking "Link" button below) to be sure they match the details of the refill request in this message. Patient: Name: JAZZY LOPEZ Gender: F Date of : 1980 ID Number: [id number] Medication: Medication to be filled: TOPIRAMATE 100MG TAB Sig: TAKE ONE TABLET BY MOUTH TWICE DAILY Quantity: 60 Each Days Supply 30 Refills: 4 Total Fills (Rx + Refills): 5 Substitution Status: Substitutions allowed Date of original prescription: 08/05/2011 Date medication last filled: 07/31/2012 Indication(s): (No Data Received) Pharmacy: Name: [facility] Pharmacist: Email: [phone] Prescriber: Name: AVI WOLFE Technical Data: (for reference) [employer] Message ID: [id number] Prescription Reference Number: [id number] Prescriber Order Number: [id number] Pharmacy WIPDP ID: [id number] documented in this encounter Plan of Treatment Not on filedocumented as of this encounter Visit Diagnoses Not on filedocumented in this encounter
--- OUTSIDE RECORDS SUMMARY | 2019-12-05 23:57 | XMS REPORT | Encounter Summary ---
Author Author [facility] Organization [facility] Address Unknown Phone Unavailable Care Team Providers Care Director Hris Name Role Phone PCP Unavailable Encounter Details Care Team Description Date Type Department Avi Wolfe DO [address] [facility] [address] [place], [place] [id number] 02/19/2013 Hist-Visit [facility] Social History Date Tobacco Use Types Packs/Day Years Used Never Assessed Sex Assigned at Date Recorded Not on file Industry Job Start Date Occupation Not on file Not on file Not on file Travel End Travel History Travel Start No recent travel history available. documented as of this encounter Last Filed Vital Signs Reading Time Taken Comments Vital Sign 146/84 02/19/2013 12:41 PM CDT Blood Pressure 102 02/19/2013 12:41 PM CDT Pulse 36.8 C (98.3 F) 02/19/2013 12:41 PM CDT Temperature - - Respiratory Rate - - Oxygen Saturation - - Inhaled Oxygen Concentration 94.8 kg (209 lb) 02/19/2013 12:41 PM CDT Weight 157.5 cm (5' 2") 02/19/2013 12:41 PM CDT Height 38.23 02/19/2013 12:41 PM CDT Body Mass Index documented in this encounter Progress Notes * Avi Wolfe DO - 02/19/2013 2:54 PM CDT . : 02:54pm .T: Return Patient PV:Gayle [facility] [address] [facility] [place] [address] [place] [address] [place] [address] [place] [address] [place] [address] Shabnam Dhillon M.D. Erasmo Dhillon M.D. Radha Carrasco M.D. Kalee Townsend M.D. Lubna Bourgeois D.O. Sabino Coronel M.D. Debbie Henry M.D. Nia Moeller M.D. Avi Wolfe D.O. Lambert King M.D. Ana Spicer, MSN,RN,ANP, [facility] Robin Lund M.D., Ph.D. Juliano Wynne M.D. Raleigh Hagan M.D. . 02/19/13 Robin Concepcion MD [address] [place], [place] [id number] RE: Jazzy Lopez : [address] Concepcion: I saw your patient Jazzy Lopez, date of 78 today in [facility]. The following medication was reported to me by the patient and may assist you: P1 Current Medications: Rx: BUSPIRONE 30mg 1 twice daily Rx: OMEPRAZOLE 20mg 1 daily Rx: POTASSIUM GLUCONATE 1 daily Rx: ESTRADIOL 2mg 1 1/2 daily Rx: VALIUM 5mg 1 q 6-8h prn dizziness Rx: FLUOXETINE 20mg 3 caps daily Rx: SUMATRIPTAN 100 mg 1TAB as directed Rx: METHOCARBAMOL 500mg 1 tab four times daily Rx: OXYCODONE-ACETAMINOPHEN 10/325mg 1 tab q 4hrs PRN Rx: TOPIRAMATE 100mg 1.5TAB twice daily Rx: VALIUM 5mg 1TAB q 6-8h prn dizziness Rx: VERAPAMIL HCL ER 120 mg 1TAB once daily The patient's vital signs taken today in my office are as follows: Bp: 146/84, R ight Arm, Pulse: 102 Temperature: 98.3 F, Height: 5'2", Weight: 209 lbs I saw Jazzy in followup on February 19. I last saw her on December 13 regarding he r problematic migraines, migraine-associated dizziness, left TMJ, and recurrent seizures. She continues not to drive. I increased her topiramate to 150 mg bid . She has had no seizures. She is experiencing some worsening migraines since last seen, which are now daily. Her migraines are usually in the left frontotem poral area which throb and may spread holocephalically associated with occasiona l nausea, photophobia and sonophobia. There is no aura. On a scale from 1 to 1 0, the headaches average about 8, and vary anywhere from 4 to 10. She takes sum atriptan 100 mg which usually helps, but she is limited to only 9 per month. Wh en she runs out of sumatriptan, she takes Tylenol, which only helps mild headac hes. Her insurance does not covera dental specialist for TMJ, and thus she has not seen a dentist as of yet. I ordered an MRI of the head with and without con trast on January 11. There were 8 frontal T2/FLAIR hypointensities in the subcor tical white matter, non-specific, which may be due to migraines, drug abuse, refugio or infection/inflammation, etc. In addition, there was mild atrophy in both hip pocampal heads with no other signal abnormalities. This can be due to longstand ing seizures. In addition, there was opacification of the middle ear and mastoi ds with subtle enhancement consistent with inflammation and prominent adenoids. Prolonged EEG on January 11 was a normal awake and sleep recording. She reports that her mood is stable. There are no other changes in her meds. S he only rarely takes oxycodone/acetaminophen 10/325 mg prn for back pain. She t ried this for migraines, which only helped modestly. She has been going to the emergency room approximately once per week at [facility]. Michael duvall eviewed one E.R. report from December 03 in which she had an intractable migraine, r eceived IV Benadryl, IV Zofran, IV Fentanyl, and dexamethasone 10 mg IV, which h elps temporarily. Complete review of systems per patient questionnaire, which I reviewed. Family history and social history is unchanged. On exam, her BP was 146/88 with pulse of 102 per minute. She is afebrile. She weighed 209 lbs. Gait was normal. There was no arm drift. Rapid alternating m ovements and fine finger movements were normal. Finger to nose and heel to mata testing were intact. Strength, bulk, and tone were normal throughout. Sensory testing was normal to light touch and pinprick. Extraocular movements were inta ct without nystagmus. There was no visual field deficit. Pupils were 3 mm roun d and reactive to light. Facial movements and sensation were intact. Tongue an d uvula were midline. She had clicking in her left TMJ with some tenderness. F undi were normal. She is experiencing problematic daily migraines. I gave her instructions to tap er off verapamil SR over one week and once she is off this, I am inititing a tri al of propanolol LA 60 mg q hs. Potential side effects were discussed. I recom mended she keep a headache log.She is seizure free. She is supposed to call me for an update in the next four weeks. I plan on seeing her in followup in the next six weeks. She is supposed to call me in the interim if there are any questions or problems. Sincerely yours, Avi Wolfe D.O. JYOTHI/marcia # SIGNED BY Avi Wolfe DO (JYOTHI) 02/19/2013 06:11PM # REVISED BY Avi Wolfe DO (JYOTHI) 02/19/2013 06:13PM documented in this encounter Plan of Treatment Not on filedocumented as of this encounter Visit Diagnoses Not on filedocumented in this encounter
--- OUTSIDE RECORDS SUMMARY | 2019-12-05 23:57 | XMS REPORT | Encounter Summary ---
Author Author [facility] Address Unknown Phone Unavailable Care Team Providers Care Ingredient Scaler Helper Name Role Phone PCP Unavailable Encounter Details Care Team Description Date Type Department Avi Wolfe DO [address] [place] [address] [phone] 06/20/2012 PracPart Note [facility] Neurol o[facility] [address] [place] [address] Social History Date Tobacco Use Types Packs/Day Years Used Never Assessed Sex Assigned at Date Recorded Not on file Industry Job Start Date Occupation Not on file Not on file Not on file Travel End Travel History Travel Start No recent travel history available. documented as of this encounter Progress Notes * Avi Wolfe DO - 06/20/2012 2:27 PM ROOM COOLER INSTALLER . : 02:27pm .T: patient call patient called to request RX for valium 5mg as [facility] states they cannot due th is as medication is controlled - RX has been faxed and I left a msg on the armacy line this was done - po documented in this encounter Plan of Treatment Not on filedocumented as of this encounter Visit Diagnoses Not on filedocumented in this encounter
--- OUTSIDE RECORDS SUMMARY | 2019-12-05 23:57 | XMS REPORT | Encounter Summary ---
Author Author [facility] Address Unknown Phone Unavailable Care Team Providers Care Earth Sciences Professor Name Role Phone PCP Unavailable Encounter Details Care Team Description Date Type Department Avi Wolfe DO [address] [facility] [address] [place], [place] [id number] 12/13/2012 Hist-Visit [facility] Social History Date Tobacco Use Types Packs/Day Years Used Never Assessed Sex Assigned at Date Recorded Not on file Industry Job Start Date Occupation Not on file Not on file Not on file Travel End Travel History Travel Start No recent travel history available. documented as of this encounter Last Filed Vital Signs Reading Time Taken Comments Vital Sign 132/85 12/13/2012 11:54 AM CDT Blood Pressure 77 12/13/2012 11:54 AM CDT Pulse 36.6 C (97.9 F) 12/13/2012 11:54 AM CDT Temperature - - Respiratory Rate - - Oxygen Saturation - - Inhaled Oxygen Concentration 97.5 kg (215 lb) 12/13/2012 11:54 AM CDT Weight 157.5 cm (5' 2") 12/13/2012 11:54 AM CDT Height 39.32 12/13/2012 11:54 AM CDT Body Mass Index documented in this encounter Progress Notes * Avi Wolfe DO - 12/13/2012 1:47 PM CDT . : 01:47pm .T: Return Patient PV:Gayle [facility] [address] [facility] [place] [address] [place] [address] [place] [address] [place] [address] [place] [address] Shabnam Dhillon M.D. Erasmo Dhillon M.D. Radha Carrasco M.D. Kalee Townsend M.D. Lubna Bourgeois D.O. Sabino Coronel M.D. Debbie Henry M.D. Nia Moeller M.D. Avi Wolfe D.O. Lambert King M.D. Ana Spicer, MSN,RN,ANP, [facility] Robin Lund M.D., Ph.D. Juliano Wynne M.D. Raleigh Hagan M.D. 12/13/12 Robin Concepcion MD [address] [place] [address] RE: Jazzy Lopez : [address] Concepcion: I saw your patient Jazzy Lopez, date of 78 today in [facility]. The following medication was reported to me by the patient and may assist you: P1 Current Medications: Rx: BUSPIRONE 30mg 1 twice daily Rx: OMEPRAZOLE 20mg 1 daily Rx: POTASSIUM GLUCONATE 1 daily Rx: ESTRADIOL 2mg 1 1/2 daily Rx: VALIUM 5mg 1 q 6-8h prn dizziness Rx: VALIUM 5mg 1TAB q 6-8h prn dizziness Rx: FLUOXETINE 20mg 3 caps daily Rx: SUMATRIPTAN 100 mg 1TAB as directed Rx: METHOCARBAM 500mg 1 tab four times daily Rx: OXYCODONE-ACETAMINOPHEN 10/325mg 1 tab q 4hrs PRN Rx: TOPIRAMATE 100mg 1.5TAB twice daily Rx: VERAPAMIL HCL ER 240 mg 1TAB once daily The patient's vital signs taken today in my office are as follows: Bp: 132/85, Right Arm, Pulse: 77 Temperature: 97.9 F, Height: 5'2", Weight: 215 lbs I saw Jazzy on December 13. I last saw her on March 29 of last year regarding migraine-associated dizziness and left TMJ. She remains on topiramate 200 mg q hs. When I last saw her, I increased her verapamil SR to 180 mg q am. She rep orts she is currently treated for chronic low back pain, which is increased sin e September. Since that time, she is experiencing daily intractable migraines . They are usually left hemicranial with associated nausea, photophobia, and sonophobi a. Sumatriptan 100 mg helps. The last two months, she had to go to the E. th ree of four times. She has taken extra hydrocodone/acetaminophen 10/325 mg prn for headache that sometimes is of no benefit. She recently has been waking up i n the morning with bruxism.She has pain in her left jaw when she eats. Dental s pecialist is not covered through her insurance for TMJ. Sometimes with the kat can, she has dizziness, & sometimes she has dizziness without migraine. She called me on November 29 stating she was having intractable migraines. She was prescribed a Medrol Dosepak which only helped her headaches modestly. She reports two weeks ago, her children witnessed two "seizures" in whish she wa s unresponsive with jerking. She had her typical migraine associated with this. She went to the E. at [place] and was given some parenteral medications f or headaches. She tells me when she was about [age], she has had a "s eizures". She was never placed on any antiepileptic drugs. She had an MRI of t he head with and without contrast in October of 2009, which was normal. She saw a neurologist in the past for seizures. She was never treated for seizures. She is currently seeing a pain specialist who is prescribing methocarbamol and O xycodone/acetaminophen 10/325 mg prn for back pain. She uses about four Oxycodo ne/acetaminophen per day. Complete review of systems per patient questionnaire, which I reviewed. Family history and social history is unchanged. Her other medications include BuSpar, omeprazole, potassium, Estradiol, diazepam 5 mg prn for dizziness, fluoxetine, sumatriptan 100 mg bid, and topiramate 200 mg q hs. On exam, she is alert with normal speech. She weighed 215 lbs. BP was 132/85 w ith pulse of 77 per minute. She is afebrile. Language function was intact. Scal p was non-tender. With jaw opening, her jaw deviated to the left. She had left TMJ tenderness. Extraocular movements were intact without nystagmus. Pupils we re 3 mm round and reactive to light. There was no visual field deficit. Facial sensation was intact. Tongue and uvula were midline. Hearing was grossly inta ct to finger rub. Gait was normal. There was no arm drift. Rapid alternating m ovements and fine finger movements were normal. Finger to nose and heel to mata testing were intact. Strength, bulk, and tone were normal throughout. Sensory testing was normal to light touch and pinprick. Impression: 1. Problematic migraines. 2. Left TMJ. 3. Low back pain. 4. Recurrent seizures. I told her for the present time she should not be driving. I am ordering an MRI of the head with and without contrast and an EEG. I increased her topiramate to 150 mg bid, both for migraines and seizures. I told her if she has any further "spells", she needs to go back to the E.R. I recommended she continue taking sumatriptan prn, no more than two per day, no more than two days per week. Contr ibuting factors of her migraines other than TMJ include narcotic overuse. I did again advise her to see a dental specialist regarding her TMJ. I am requesting records from her E.R.visits at [place]. I plan on seeing her in followup in the next one month. She is supposed to call me in the interim if there are any questions, problems, or concerns. Sincerely yours, Avi Hwang D.O. JYOTHI/marcia # SIGNED BY Avi Wolfe DO (JYOTHI) 12/13/2012 05:18PM # REVISED BY Avi Wolfe DO (JYOTHI) 02/19/2013 01:00PM documented in this encounter Plan of Treatment Not on filedocumented as of this encounter Visit Diagnoses Not on filedocumented in this encounter
--- OUTSIDE RECORDS SUMMARY | 2019-12-05 23:57 | XMS REPORT | Encounter Summary ---
Author Author [facility] Organization [facility] Address Unknown Phone Unavailable Care Team Providers Care Doctor Naturopathic Name Role Phone PCP Unavailable Encounter Details Care Team Description Date Type Department Avi Wolfe DO [address] [place] [address] [phone] 04/06/2012 PracPart Note [facility] [address] [place] [address] Social History Date Tobacco Use Types Packs/Day Years Used Never Assessed Sex Assigned at Date Recorded Not on file Industry Job Start Date Occupation Not on file Not on file Not on file Travel End Travel History Travel Start No recent travel history available. documented as of this encounter Progress Notes * Avi Wolfe DO - 04/06/2012 1:36 PM PROCESS CONTROL TECH . :01:36PM .T:Rx Renew Request 04/06/12 Refill electronically transmitted - st From: Originated by: Sent: 04/04/2012 at 07:28PM To: Prescription, User (RX) Type: RX Priority: 3 Subject: Rx Renew Request A refill request has been received from the [email or web address] network. ATTENTION: Please compare the details of the prescription in practice partner (b y clicking "Link" button below) to be sure they match the details of the refill request in this message. Patient: Name: JAZZY LOPEZ Gender: F Date of : 1980 ID Number: [id number] Medication: Medication to be filled: SUMATRIPTAN 100MG TAB Sig: TAKE 1 TABLET AT ONSET OF HEADACHE, MAY REPEAT 1 TIME IN 2 HOURS, DO NOT EX CEED 2 TABS IN 24 HOURS AND NO MORE THAN 2 TIMES PER WEEK Quantity: 9 Each Days Supply 14 Refills: 4 Total Fills (Rx + Refills): 5 Substitution Status: Substitutions allowed Date of original prescription: 04/25/2011 Date medication last filled: 02/16/2012 Indication(s): (No Data Received) Pharmacy: Name: [facility] Pharmacist: Email: [phone] Prescriber: Name: AVI WOLFE Technical Data: (for reference) [employer] Message ID: [id number] Prescription Reference Number: [id number] Prescriber Order Number: [id number] Pharmacy RIPDP ID: [id number] documented in this encounter Plan of Treatment Not on filedocumented as of this encounter Visit Diagnoses Not on filedocumented in this encounter
--- OUTSIDE RECORDS SUMMARY | 2019-12-05 23:57 | XMS REPORT | Encounter Summary ---
Author Author [facility] Address Unknown Phone Unavailable Care Team Providers Care Auto Hiker Name Role Phone PCP Unavailable Encounter Details Care Team Description Date Type Department Avi Wallace DO [address] [place] [address] [phone] 01/11/2013 PracPart Note [facility] [address] [place] [address] Social History Date Tobacco Use Types Packs/Day Years Used Never Assessed Sex Assigned at Date Recorded Not on file Industry Job Start Date Occupation Not on file Not on file Not on file Travel End Travel History Travel Start No recent travel history available. documented as of this encounter Progress Notes * Avi Wallace, - 01/11/2013 1:20 PM CDT . : 1:20pm .T: MRI HEAD W WO CONTRAST .PV: JYOTHI REPORT Patient: JAZZY LOPEZ Phone #: Med Rec#: [id number] Sex: F : 1980 [place]ley#: [id number] Location: Check-in#: [id number] Procedure Requested: [id number] MRI HEAD W WO CONTRAST Reason For Exam: 345.10 GEN CNV EPIL W/O INTR EP Exam Ordered: 01/11/2013 1303 Exam Date/Time: 01/11/2013 1410 Check-in Date/Time: 01/11/2013 1544 Attendin AVI WALLACE Requestin AVI WALLACE Referrin NO, REFERRING Primary Care: [id number] BRENNAN CAM DO EXAMINATION: Magnetic resonance imaging (MRI) of the brain and brainstem without and with contrast History: Seizure. Technique: Multiplanar, multisequences were performed as part of a general brain protocol. Contrast information|\\ 19 mL of Omniscan. Comparison: None available. Findings: Atypical for age approximately 7 bifrontal T2/FLAIR hyperintensities in the subcortical white matter. The temporal lobes show mild atrophy of both hippocampal heads. Pertinent negatives are no FLAIR/T2 abnormal signal or definite architecture distortion. In addition, the fornices/mamillary bodes are symmetric in size. No evidence of mass or AVM. Diffusion weighted images reveal no hyperintensities to suggest acute cerebral infarction. The susceptibility weighted sequences reveal no evidence of acute or chronic hemorrhage. The ventricles are normal in size and position without evidence of hydrocephalus. There are no areas of abnormal contrast enhancement. On the sagittal images, the scalp and calvarium are normal. The superior sagittal sinus demonstrates normal venous flow. The pituitary and sella are normal. The brainstem and craniocervical junction are unremarkable. The upper cervical spinal cord and spine are normal. Opacification of the middle ears and mastoids with subtle enhancement consistent with inflammation. Prominent adenoids. The visualized portions of the orbits and paranasal sinuses are unremarkable. Normal flow voids are demonstrated in the carotid arteries and basilar artery. IMPRESSION|\\ Atypical for age approximately 7 bifrontal T2/FLAIR hyperintensities in the subcortical white matter, nonspecific. This can be due to migraines, chronic drug use, prior infection/inflammation, etc. The temporal lobes show mild atrophy of both hippocampal heads though no abnormal signal is seen within them. This is non-specific and without other features, remote bilateral meso temporal sclerosis cannot be diagnosed by this isolated imaging features. It may merely be due to long standing seizures. No cortical dysplasia. No malformation. No tumor. ATTESTATION STATEMENT|\\ The Staff Radiologist has personally reviewed the images and dictated, reviewed, or edited the final report. INTERPRETATION SITE: [employer]. Signed (Authenticated, Released) Date-Time: 01/11/2013 6068 Wound/Ostomy Clinical Nurse Specialist- SANTINO MAJOR M.D., Staff Radiologist Dictated By- TONY AMEZCUA D.O., Resident Staff Physician- SANTINO MAJOR M.D., Staff Radiologist Authenticated By- SANTINO MAJOR M.D., Staff Radiologist -- RELEASED BY [id number] Accession Number: [id number] Ordering Physician: AVI WALLACE # SIGNED BY Avi Wallace DO (MJS) 01/15/2013 09:39AM documented in this encounter Plan of Treatment Not on filedocumented as of this encounter Visit Diagnoses Not on filedocumented in this encounter"
--- OUTSIDE RECORDS SUMMARY | 2019-12-05 23:57 | XMS REPORT | Encounter Summary ---
Author Author [facility] Organization [facility] Address Unknown Phone Unavailable Care Team Providers Care Retirement Plan Counselor Name Role Phone PCP Unavailable Encounter Details Care Team Description Date Type Department Avi Wolfe DO [address] [facility] [address] [place] [address] [phone] 03/29/2012 Hist-Visit [facility] Social History Date Tobacco Use Types Packs/Day Years Used Never Assessed Sex Assigned at Date Recorded Not on file Industry Job Start Date Occupation Not on file Not on file Not on file Travel End Travel History Travel Start No recent travel history available. documented as of this encounter Progress Notes * Avi Wolfe DO - 03/29/2012 8:47 AM LINER REPLACER .D: 12 : 08:47am .T: Return Patient PV:S [facility] Shabnam Dhillon M.D. [address] [facility] Erasmo Dhillon M.D. [address] [place] [address] [place], [place] [address] [place] [address] [place] [address] Cassia Teran M.D. Kalee Townsend M.D. Sabino Coronel M.D. Debbie Henry M.D. Nia Moeller M.D. F ax: Avi Wolfe D.O. Lambert King M.D. Ana Spicer, MSN,RN,ANP, [facility] Robin Lund M.D., Ph.D. Juliano Wynne M.D. Raleigh Hagan M.D. 03/29/12 Robin Concepcion MD [address] [facility] [address] [place] [id number] RE: Jazzy Lopez : [address] Concepcion: I saw your patient Jazzy Lopez, date of 78 today [facility]. 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 Family history and social history is [...] Wolfe D.O. JYOTHI/marcia cc Tahmina Schwarz M.D. # SIGNED BY Avi Wolfe DO (JYOTHI) 03/30/2012 01:37PM R REPLACER documented in this encounter Plan of Treatment Not on filedocumented as of this encounter Visit Diagnoses Not on filedocumented in this encounter
--- OUTSIDE RECORDS SUMMARY | 2019-12-05 23:57 | XMS REPORT | Encounter Summary ---
Author Author [facility] Address Unknown Phone Unavailable Care Team Providers Care Lean Six Sigma Senior Specialist Name Role Phone PCP Unavailable Encounter Details Care Team Description Date Type Department [facility], Historical 01/23/2013 PracPart Note [facility] Social History Date Tobacco Use Types Packs/Day Years Used Never Assessed Sex Assigned at Date Recorded Not on file Industry Job Start Date Occupation Not on file Not on file Not on file Travel End Travel History Travel Start No recent travel history available. documented as of this encounter Progress Notes * [facility], Historical - 01/23/2013 2:48 PM CDT . :02:48PM .T:EEG results From: Karolina Donald () Originated by: Karolina Donald (JEWEL) Sent: 01/23 at 02:48PM To: Bere Andrade (MANISH) Type: Priority: 3 Subject: EEG results Ms. Blackburn, EEG RESULTS ARE IN PATIENTS CHART - Original Message: From: PO To: Subject: EEG results Priority: 3 Date: 01/22/2013 Karolina: Can you see if you can locate/link the EEG results on this patient? She had it p erformed 01/11/13. thanks...PO documented in this encounter Plan of Treatment Not on filedocumented as of this encounter Visit Diagnoses Not on filedocumented in this encounter
--- OUTSIDE RECORDS SUMMARY | 2019-12-05 23:57 | XMS REPORT | Encounter Summary ---
Author Author [facility] Organization [facility] Address Unknown Phone Unavailable Care Team Providers Care Student Teaching Coordinator Name Role Phone PCP Unavailable Encounter Details Care Team Description Date Type Department [facility], Historical 12/25/2012 PracPart Note [facility] Social History Date Tobacco Use Types Packs/Day Years Used Never Assessed Sex Assigned at Date Recorded Not on file Industry Job Start Date Occupation Not on file Not on file Not on file Travel End Travel History Travel Start No recent travel history available. documented as of this encounter Progress Notes * [facility], Historical - 12/25/2012 8:20 AM CDT . :08:20AM .T:Precerts Needed From: Jennifer Hess (MONY) Originated by: Jennifer Hess (MONY) Sent: 013 at 08:20AM To: Ana Pelaez (CHARITO) Type: CHART Priority: 3 Subject: Precerts Needed MRI Head approved Auth #[id number] per letter in chart good for date of servie d 01/11/13 mony Original Message: From: MONY To: MONY Subject: Precerts Needed Priority: 3 Date: 12/18/2012 Original Message: From: CHARITO To: PC Subject: Precerts Needed Priority: 3 Date: 12/18/2012 Proloned eeg on 01/11/13 10am [facility] and then Mri head at [facility] image [address] at 1:15pm please let me know when when finished, thanks charito documented in this encounter Plan of Treatment Not on filedocumented as of this encounter Visit Diagnoses Not on filedocumented in this encounter
--- OUTSIDE RECORDS SUMMARY | 2019-12-05 23:57 | XMS REPORT | Encounter Summary ---
Author Author [facility] Organization [facility] Address Unknown Phone Unavailable Care Team Providers Care Telegraph Installer Name Role Phone PCP Unavailable Encounter Details Care Team Description Date Type Department [facility], Historical 12/19/2012 PracPart Note [facility] Social History Date Tobacco Use Types Packs/Day Years Used Never Assessed Sex Assigned at Date Recorded Not on file Industry Job Start Date Occupation Not on file Not on file Not on file Travel End Travel History Travel Start No recent travel history available. documented as of this encounter Progress Notes * [facility], Historical - 12/19/2012 4:08 PM CDT . :04:08PM .T:Precerts Needed From: Jennifer Hess (MONY) Originated by: Jennifer Hess (MONY) Sent: 013 at 04:08PM To: Ana Pelaez (CHARITO) Type: CHART Priority: 3 Subject: Precerts Needed No precert required for EEG per [facility] MRI precert required, they are sending a fax requesting clinical info, when rece ived fax to , tracking #[id number] per [place] if need to change facility for MRI, need to call them at mony Original Message: From: MONY To: MONY Subject: Precerts Needed Priority: 3 Date: 12/18/2012 Original Message: From: CHARITO To: PC Subject: Precerts Needed Priority: 3 Date: 12/18/2012 Proloned eeg on 01/11/13 10am [facility] and then Mri head at [facility] image [address] at 1:15pm please let me know when when finished, thanks charito documented in this encounter Plan of Treatment Not on filedocumented as of this encounter Visit Diagnoses Not on filedocumented in this encounter
--- OUTSIDE RECORDS SUMMARY | 2019-12-05 23:57 | XMS REPORT | Encounter Summary ---
Author Author [facility] Address Unknown Phone Unavailable Care Team Providers Care International Accountant Name Role Phone PCP Unavailable Encounter Details Care Team Description [place] [address] [facility] [address] [place] [address] [phone] 08/08/2012 PracPart Note [facility] ogy [address] [place] [address] Social History Date Tobacco Use Types Packs/Day Years Used Never Assessed Sex Assigned at Date Recorded Not on file Industry Job Start Date Occupation Not on file Not on file Not on file Travel End Travel History Travel Start No recent travel history available. documented as of this encounter Progress Notes * Lambert King MD - 08/08/2012 1:33 PM CDT . : 01:33pm .T: Patient call patient left vm msg at 7:55pm on 08/07/12 that she needed an RX for topamax sent to [facility] - I called her today and she states that she has the RX and it is not actually filled at [facility] documented in this encounter Plan of Treatment Not on filedocumented as of this encounter Visit Diagnoses Not on filedocumented in this encounter
--- OUTSIDE RECORDS SUMMARY | 2019-12-05 23:57 | XMS REPORT | Encounter Summary ---
Author Author [facility] Address Unknown Phone Unavailable Care Team Providers Care Retail Interior Designer Name Role Phone PCP Unavailable Encounter Details Care Team Description Date Type Department Avi Wolfe DO [address] [place] [address] [phone] 01/28/2013 PracPart Note [facility] Neurol ogy [address] [place] [address] Social History Date Tobacco Use Types Packs/Day Years Used Never Assessed Sex Assigned at Date Recorded Not on file Industry Job Start Date Occupation Not on file Not on file Not on file Travel End Travel History Travel Start No recent travel history available. documented as of this encounter Progress Notes * Avi Wolfe DO - 01/28/2013 2:47 PM CDT . :02:47PM .T:patient call From: Avi Wolfe (JYOTHI) Originated by: Avi Wolfe (JYOTHI) Sent: 01/28/2013 at 02:47PM To: Bere Andrade (MANISH) Bekah Ness () Type: CHART Priority: 3 Subject: patient call Original Message: From: MANISH To: JYOTHI Subject: patient call Priority: 3 Date: 01/28/2013 Nurse Note:MANISH Providers: : Physician Response: . Please call.Normal EEG .MRI head ....no significant abnormalities.Abnormalities on MRI can be seen in migraine & seizure pts.Will need to address HAs at next visit.Can she be put on cancellation list? JYOTHI 01/28/13 Patient Last Visit 12/13/12 Next Visit 02/19/13 Reason for Call: This 32 year old female reports by phone that she would like to know the results of her MRI head and EEG as she continues to have headaches. Let me know - manish 12/13/12 Robin Concepcion MD [address] [place] [address] [place] [address] RE: Jazzy Lopez : [address] Concepcion: I saw your patient Jazzy Lopez, date of 78 today in neurological [facility]. The following medication was reported to [...] chronic low back pain, which is increased sinc e September. Since that time, she is experiencing daily intractable migraines . They are usually left hemicranial with associated nausea, photophobia, and sonophobi a. Sumatriptan 100 mg helps. The last two months, she had to go to the [facility] times. She has taken extra hydrocodone/acetaminophen 10/325 mg prn for headache that sometimes is of no benefit. She recently has been waking up i n the morning with bruxism.She has pain in her left jaw when she eats. Dental s pecialist is not covered through her insurance for TMJ. Sometimes with the kat juan josé, she has dizziness, & sometimes she has [...] associated with this. She went to the E.R. at [place] and was given some parenteral medications f [...] fluoxetine, sumatriptan 100 mg bid, and topiramate 2 mg q hs. On exam, she is [...] am requesting records from her E.R.visits at [place]. I plan on seeing her in followup in the next one month. She is supposed to call me in the interim if there are any questions, problems, or concerns. Sincerely yours, Avi Hwang D.O. JYOTHI/marcia documented in this encounter Plan of Treatment Not on filedocumented as of this encounter Visit Diagnoses Not on filedocumented in this encounter
--- OUTSIDE RECORDS SUMMARY | 2019-12-05 23:57 | XMS REPORT | Encounter Summary ---
Author Author [facility] Address Unknown Phone Unavailable Care Team Providers Care Diesel Engine Erector Name Role Phone PCP Unavailable Encounter Details Care Team Description Date Type Department Avi Wolfe DO [address] [place] [address] [phone] 11/29/2012 PracPart Note [facility] Neurol ogy [address] [place] [address] Social History Date Tobacco Use Types Packs/Day Years Used Never Assessed Sex Assigned at Date Recorded Not on file Industry Job Start Date Occupation Not on file Not on file Not on file Travel End Travel History Travel Start No recent travel history available. documented as of this encounter Progress Notes * Avi Wolfe, - 11/29/2012 5:20 PM CDT . :05:20PM .T:patient call From: Avi Wolfe (JYOTHI) Originated by: Avi Wolfe (JYOTHI) Sent: 11/29/2012 at 05:20PM To: Bere Andrade (MANISH) Type: CHART Priority: 3 Subject: patient call Original Message: From: MANISH To: JYOTHI Subject: patient call Priority: 3 Date: 11/29/2012 Nurse Note: MANISH Providers: : Physician Response: I left message [...] - po 03/29/12 Robin Concepcion MD [address] [facility] [place] [address] [place] [address] RE: Jazzy Lopez : [address] Concepcion: I saw your patient Jazzy Lopez, date of 78 today in neurological [facility]. The following medication was reported to [...] M.D. 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 Family history and social history is [...]
--- OUTSIDE RECORDS SUMMARY | 2019-12-05 23:57 | XMS REPORT | Encounter Summary ---
Author Author [facility] Address Unknown Phone Unavailable Care Team Providers Care Parts Specialist Name Role Phone PCP Unavailable Encounter Details Care Team Description Date Type Department Avi Wolfe DO [address] [place] [address] [phone] 02/08/2012 Hist-Visit [facility] ogy [address] [place] [address] Social History Date Tobacco Use Types Packs/Day Years Used Never Assessed Sex Assigned at Date Recorded Not on file Industry Job Start Date Occupation Not on file Not on file Not on file Travel End Travel History Travel Start No recent travel history available. documented as of this encounter Progress Notes * Avi Wolfe DO - 02/08/2012 6:41 AM CDT .D: 12 : 06:41am .T: [facility] Shabnam Dhillon M.D. [address] [facility] Erasmo Dhillon M.D. [address] Radha [place] [address] [place], [place] [address] [place] [address] [place] [address] Cassia Teran M.D. Kalee Townsend M.D. Sabino Coronel M.D. Debbie Henry M.D. Nia Moeller M.D. F ax: Avi Wolfe D.O. Lambert King M.D. Ana Spicer, MSN,RN,ANP, [facility] Robin Lund M.D., Ph.D. Juliano Wynne M.D. Raleigh Hagan M.D., Ph.D. Name: JUVENTINO LOPEZ Date of : 1980 Date of Visit: 02/07/2012 Zach Concepcion MD [address] [place] [address] Concepcion, I saw Juventino on February 07, 2012. I last saw her on November 14, 2011 regarding h er migraines associated with dizziness and left TMJ. She is on topiramate 200 m g at bedtime. She was previously experiencing increased episodes of dizziness w ithout headache, which diazepam 5 mg helped. She saw Avi Ortiz MD of ENT y who did not feel that her symptoms were related to inner ear. Th e frequency of her migraines is approximately three per month, which sumatriptan helps moderately. She previously lied down. She describes a throbbing, left h emicranial headache predominantly in the parietal area with associated photophob ia, sonophobia, and occasional movement-sensitive dizziness. The intensity of t he headache on a scale of 1-10 was about an 8-9. Triggers include stress. When last seen, Medrol Dosepak broke up her prior migraine possible status. She feels that overall her mood is stable and she sees a therapist on a regular basis. Symbicort was added. She remains on fluoxetine and Buspar. Complete review of systems is on patient questionnaire, which I reviewed. She h as left jaw clicking, occasional left jaw pain. 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 Family history unchanged. Social history: She smokes one pack of cigarettes per day. She has about three caffeinated beverages per day. On exam, she is alert. Affect is slightly blunted. Weight 183 pounds. BP 108/ 70 with pulse of 72 per minute. Cervical range of motion is normal without tend erness. No scalp tenderness. She has left TMJ tenderness with clicking. I recommend that she keep a headache log. I am continuing her current dose of t opiramate. I told her every time she has a migraine to take sumatriptan along w ith OTC ibuprofen 800 mg. She is experiencing more migraine-associated dizzines s for which diazepam 5 mg helps. I am adding low-dose verapamil SR 120 mg q.a.m .. I discussed the potential side effects. She has a blood pressure cuff. I t old her to call me in one week and tell me what her blood pressure and heart rat e is. I recommended she see a dental specialist for TMJ, which may be a contrib uting factor for her migraines. I plan on seeing her for followup in the next s ix weeks or sooner if other problems develop. Sincerely yours, Avi Wolfe DO cc: Tahmina Schwarz MD # SIGNED BY Avi Wolfe DO (MJS) 02/08/2012 08:16PM # REVISED BY Avi Wolfe DO (MJS) 02/08/2012 08:19PM documented in this encounter Plan of Treatment Not on filedocumented as of this encounter Visit Diagnoses Not on filedocumented in this encounter
--- OUTSIDE RECORDS SUMMARY | 2019-12-05 23:57 | XMS REPORT | Encounter Summary ---
Author Author [facility] Address Unknown Phone Unavailable Care Team Providers Care Needlemaker Name Role Phone PCP Unavailable Encounter Details Care Team Description Date Type Department Avi Wolfe DO [address] [facility] [address] [place] [address] [phone] 11/29/2012 PracPart Note [facility] Neurol ogy [address] [place] [address] Social History Date Tobacco Use Types Packs/Day Years Used Never Assessed Sex Assigned at Date Recorded Not on file Industry Job Start Date Occupation Not on file Not on file Not on file Travel End Travel History Travel Start No recent travel history available. documented as of this encounter Progress Notes * Avi Wolfe, - 11/29/2012 5:16 PM CDT . :05:16PM .T:patient call From: Bere Andrade () Originated by: Bere Andrade () Sent: 11/29/2012 at 03: 40PM To: Avi Wolfe ([facility] Type: CHART Priority: 3 Subject: patient call Nurse Note: PO Providers: : Physician Response: Patient Last Visit 03/29/12 Next Visit 12/13/12 [...] - po 03/29/12 Robin Concepcion MD [address] [facility] [address] [place] [id number] RE: Jazyzjan Lopez : [address] Concepcion: I saw your patient Jazzy Lopez, date of 78 today in [facility]. The following medication was reported to me [...] M.D. 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 Family history and social history is [...]
--- OUTSIDE RECORDS SUMMARY | 2019-12-05 23:57 | XMS REPORT | Encounter Summary ---
Author Author [facility] Address Unknown Phone Unavailable Care Team Providers Care Visual Manager Name Role Phone PCP Unavailable Encounter Details Care Team Description Date Type Department Erasmo Dhillon MD No Forwarding Address 12/31/2012 PracPart Note [facility] Neurol ogy [address] [place] [address] Social History Date Tobacco Use Types Packs/Day Years Used Never Assessed Sex Assigned at Date Recorded Not on file Industry Job Start Date Occupation Not on file Not on file Not on file Travel End Travel History Travel Start No recent travel history available. documented as of this encounter Progress Notes * Erasmo Dhillon MD - 12/31/2012 8:59 AM CDT . :08:59AM .T:Rx Renew Request 01/09/13 - RX zetafaxed - po denied too soon to fill - last filled 12/09/12 - po From: Originated by: Sent: 12/31/2012 at 05:02AM To: Prescription, User (RX) Type: RX Priority: 3 Subject: Rx Renew Request A refill request has been received from the [employer] [facility] network. ATTENTION: Please compare the details of the prescription in practice partner (b y clicking "Link" button below) to be sure they match the details of the refill request in this message. Patient: Name: JAZZY LOPEZ Gender: F Date of : 1980 ID Number: [id number] Medication: Medication to be filled: DIAZEPAM 5MG TAB Sig: TAKE ONE TABLET BY MOUTH EVERY 6 TO 8 HOURS NEEDED FOR DIZZINESS. Quantity: 30 Each Days Supply 8 Refills: 4 Total Fills (Rx + Refills): 5 Substitution Status: Substitutions allowed Date of original prescription: 06/20/2012 Date medication last filled: 12/09/2012 Indication(s): (No Data Received) Pharmacy: Name: [facility] Pharmacist: Email: [phone] Prescriber: Name: BIA WALLACE Technical Data: (for reference) [employer] Message ID: [id number] Prescription Reference Number: [id number] Pharmacy UTPDP ID: [id number] documented in this encounter Plan of Treatment Not on filedocumented as of this encounter Visit Diagnoses Not on filedocumented in this encounter
--- OUTSIDE RECORDS SUMMARY | 2019-12-05 23:57 | XMS REPORT | Encounter Summary ---
Author Author [facility] Address Unknown Phone Unavailable Care Team Providers Care Compressor Repairer Name Role Phone PCP Unavailable Encounter Details Care Team Description Date Type Department Avi Wolfe DO [address] [place] [address] [phone] 09/05/2012 PracPart Note [facility] Neurol ogy [address] [place] [address] Social History Date Tobacco Use Types Packs/Day Years Used Never Assessed Sex Assigned at Date Recorded Not on file Industry Job Start Date Occupation Not on file Not on file Not on file Travel End Travel History Travel Start No recent travel history available. documented as of this encounter Progress Notes * Avi Wolfe DO - 09/05/2012 8:20 AM CDT . :08:20AM .T:Rx Renew Request RX efaxed - pt is on December wait list - po 10/11/12 Denied-pt needs to make an appt-md From: Originated by: Sent: 09/05/2012 at 05:02AM To: Prescription, User (RX) Type: RX Priority: 3 Subject: Rx Renew Request A refill request has been received from the [employer] network. ATTENTION: Please compare the details of the prescription in practice partner (b y clicking "Link" button below) to be sure they match the details of the refill request in this message. Patient: Name: JAZZY LOPEZ Gender: F Date of : 1980 ID Number: [id number] Medication: Medication to be filled: FLUOXETINE 20MG CAP Sig: TAKE THREE CAPSULES BY MOUTH EVERY DAY. Quantity: 90 Each Days Supply 30 Refills: 4 Total Fills (Rx + Refills): 5 Substitution Status: Substitutions allowed Date of original prescription: 01/26/2012 Date medication last filled: 07/31/2012 Indication(s): (No Data Received) [facility] Pharmacist: Email: [phone] Prescriber: Name: AVI WOLFE Technical Data: (for reference) [employer] Message ID: [id number] Prescription Reference Number: [id number] Prescriber Order Number: [id number] Pharmacy DEPDP ID: [id number] documented in this encounter Plan of Treatment Not on filedocumented as of this encounter Visit Diagnoses Not on filedocumented in this encounter
--- OUTSIDE RECORDS SUMMARY | 2019-12-05 23:57 | XMS REPORT | Encounter Summary ---
Author Author [facility] Address Unknown Phone Unavailable Care Team Providers Care Art Coordinator Name Role Phone PCP Unavailable Encounter Details Care Team Description Date Type Department Avi Wolfe DO [address] [place] [address] [phone] 11/29/2012 PracPart Note [facility] Neurol ogy [address] [place] [address] Social History Date Tobacco Use Types Packs/Day Years Used Never Assessed Sex Assigned at Date Recorded Not on file Industry Job Start Date Occupation Not on file Not on file Not on file Travel End Travel History Travel Start No recent travel history available. documented as of this encounter Progress Notes * Avi Wolfe DO - 11/29/2012 5:13 PM CDT . : 05:13pm .T: phone call called me.Visual seals normal.He said he will see him back in 2 weeks & then serially.He said he will keep me updated .I told him I agreed.MJS documented in this encounter Plan of Treatment Not on filedocumented as of this encounter Visit Diagnoses Not on filedocumented in this encounter
--- OUTSIDE RECORDS SUMMARY | 2019-12-05 23:57 | XMS REPORT | Encounter Summary ---
Author Author [facility] Organization [facility] Address Unknown Phone Unavailable Care Team Providers Care Electronic Integrated Systems Mechanic Name Role Phone PCP Unavailable Encounter Details Care Team Description Date Type Department Avi Wolfe DO [address] [place] [address] [phone] 04/02/2013 Hist-Visit [facility] Social History Date Tobacco Use Types Packs/Day Years Used Never Assessed Sex Assigned at Date Recorded Not on file Industry Job Start Date Occupation Not on file Not on file Not on file Travel End Travel History Travel Start No recent travel history available. documented as of this encounter Last Filed Vital Signs Reading Time Taken Comments Vital Sign 131/69 04/02/2013 10:03 AM HR CLERK Blood Pressure 117 04/02/2013 10:03 AM HR CLERK Pulse 36.6 C (97.8 F) 04/02/2013 10:03 AM HR CLERK Temperature - - Respiratory Rate - - Oxygen Saturation - - Inhaled Oxygen Concentration 98 kg (216 lb) 04/02/2013 10:03 AM HR CLERK Weight - - Height 39.51 02/19/2013 12:41 PM CDT Body Mass Index documented in this encounter Progress Notes * Avi Wolfe DO - 04/02/2013 10:24 AM HR CLERK . : 10:24am .T: Return Patient PV:S [facility] [address] [facility] [address] [place] [address] [place] [address] [place] [address] [place] [address] Shabnam Dhillon M.D. Erasmo Dhillon M.D. Radha Carrasco M.D. Kalee Townsend M.D. Lubna Bourgeois D.O. Sabino Coronel M.D. Debbie Henry M.D. Nia Moeller M.D. Avi Wolfe D.O. Lambert King M.D. Ana Spicer, MSN,RN,ANP, Comprehensive Epilepsy [facility] Robin Lund M.D., Ph.D. Juliano Wynne M.D. Raleigh Hagan M.D. . 04/02/13 Robin Concepcion MD [address] [place] [address] [place] [address] RE: Jazzy Lopez : [address] Concepcion: I saw your patient Jazzy Lopez, date of 78 today in [facility]. The following medication was reported to [...] # SIGNED BY Avi Wolfe DO (JYOTHI) 04/02/2013 11:33AM CLERK documented in this encounter Plan of Treatment Not on filedocumented as of this encounter Visit Diagnoses Not on filedocumented in this encounter
--- OUTSIDE RECORDS SUMMARY | 2019-12-05 23:57 | XMS REPORT | Encounter Summary ---
Author Author [facility] Address Unknown Phone Unavailable Care Team Providers Care Security Compliance Specialist Name Role Phone PCP Unavailable Encounter Details Care Team Description Date Type Department Avi Wolfe, [address] [place] [address] [phone] 12/18/2012 PracPart Note [facility] Neurol ogy [address] [place] [address] Social History Date Tobacco Use Types Packs/Day Years Used Never Assessed Sex Assigned at Date Recorded Not on file Industry Job Start Date Occupation Not on file Not on file Not on file Travel End Travel History Travel Start No recent travel history available. documented as of this encounter Progress Notes * Avi Wolfe, - 12/18/2012 4:20 PM CDT . :04:20PM .T:Precerts Needed From: Ana Pelaez (GABRIEL) Originated by: Ana Pelaez (GABRIEL) Sent: 12/18/2012 at 0 4:20PM To: Precertification (PC) Type: CHART Priority: 3 Attachment: INVALID LINK:Jazzy BEAN Router ORDER [id number] - [id number]|[id number] \\T:\\ppart\\Files\\[id number]\\[id number]\\[id number]\\[id number]\\[id number]\\[id number]\\[id number]\\ [id number]\\[id number]\\[id number]\\[id number]\\[id number]\\[id number]\\[id number]\\[id number]\\[id number]\\[id number]\\ [id number]\\[id number]\\[id number].tif Subject: Precerts Needed Proloned eeg on 01/11/13 10am [facility] and then Mri head at [facility] image [address] at 1:15pm please let me know when when finished, thanks jl documented in this encounter Plan of Treatment Not on filedocumented as of this encounter Visit Diagnoses Not on filedocumented in this encounter"
--- OUTSIDE RECORDS SUMMARY | 2019-12-05 23:57 | XMS REPORT | Encounter Summary ---
Author Author [facility] Address Unknown Phone Unavailable Care Team Providers Care Lead Fire Protection Engineer Name Role Phone PCP Unavailable Encounter Details Care Team Description Date Type Department [facility], Historical 01/28/2013 PracPart Note [facility] Social History Date Tobacco Use Types Packs/Day Years Used Never Assessed Sex Assigned at Date Recorded Not on file Industry Job Start Date Occupation Not on file Not on file Not on file Travel End Travel History Travel Start No recent travel history available. documented as of this encounter Progress Notes * [facility], Historical - 01/28/2013 1:37 PM CDT . : 01:37pm .T: EEG RESULTS [id number] .PV:JYOTHI RECEIVED 01/23/13 - CS INVALID LINK:JAZZY LOPEZ|[id number]\\JAZZY LOPEZ.tif Indexed by Karolina Donald date: Wednesday, January 23, 2013 at 2:25:37 PM # SIGNED BY Avi Wolfe DO (JYOTHI) 01/28/2013 01:44PM documented in this encounter Plan of Treatment Not on filedocumented as of this encounter Visit Diagnoses Not on filedocumented in this encounter"
--- OUTSIDE RECORDS SUMMARY | 2019-12-05 23:57 | XMS REPORT | Encounter Summary ---
Author Author [facility] Address Unknown Phone Unavailable Care Team Providers Care Treatment Supervisor Name Role Phone PCP Unavailable Encounter Details Care Team Description Date Type Department Avi Wallace, DO [address] [facility] [address] [place] [address] [phone] Generalized convulsive epilepsy without mention of intractable epilepsy 01/11/2013 [facility] al Encounter [address] [place] [address] Social History Date Tobacco Use Types Packs/Day Years Used Never Assessed Sex Assigned at Date Recorded Not on file Industry Job Start Date Occupation Not on file Not on file Not on file Travel End Travel History Travel Start No recent travel history available. documented as of this encounter Procedure Notes * Sabino Coronel MD - 07/11/2013 4:47 PM RETAIL GROCER Associated Order(s): EEG ROUTINE (UP TO 40 MIN) REPORT Name: JAZZY LOPEZ Date of : 1980 Attending Physician: AVI WALLACE Date of Admission: 01/11/2013 DATE OF EE01/11/2013 DATE OF READ: 01/22/2013 REASON FOR EEG: Ms. Lopez is a 32-year-old woman with history of migraine and potential seizure where she will become unresponsive with jerking. She also has daily migraines. She is treated with Topamax 150 twice a day as well as BuSpar, omeprazole, potassium, estradiol, diazepam, fluoxetine, and sumatriptan. FINDINGS: This is a 21 digital channel recording utilizing international 10-20 electrode placement system. The EEG duration is greater than 60 minutes. The posterior dominant rhythm of the EEG is a normal 9 Hz symmetric background and attenuates with eye opening and larger with eye closure as normally expected. The amplitude is indeed normal. She also falls asleep and indeed has normal vertex waves, She also gets sleep spindles and she even has K complexes with the vertex wave after a spindle. During official stage II sleep wakefulness and drowse, there appear no obvious epileptiform transients, sharp waves, or seizures seen during the recording. She underwent photic stimulation which did not generate any pathological rhythms. A single-lead EKG showed a heart rate of about 60 beats per minute. IMPRESSION: This is a normal awake, drowse, and sleep EEG. Clinical correlation remains to be advised as EEG alone is an imperfect tool to exclude a seizure disorder. Sabino Coronel MD Dictated By: cc: [place] GROCER documented in this encounter Plan of Treatment Not on filedocumented as of this encounter Procedures Comments Procedure Name Priority Date/Time Associated Diag nosis EEG ROUTINE (UP TO 40 01/22/2013 MIN) 2:12 PM CDT MRI HEAD W WO CONTRAST Routine 01/11/2013 1:20 PM CDT documented in this encounter Results * EEG ROUTINE (UP TO 40 MIN) (01/22/2013 2:12 PM CDT) Specimen Transcriptions Sabino Coronel DO - 07/11/2013 4:47 PM RETAIL GROCER REPORT Name: JAZZY LOPEZ Date of : 1980 Attending Physician: AVI WALLACE Date of Admission: 01/11/2013 DATE OF EE01/11/2013 DATE OF READ: 01/22/2013 REASON FOR EEG: Ms. Lopez is a 32-year-old woman with history of migraine and potential seizure where she will become unresponsive with jerking. She also has daily migraines. She is treated with Topamax 150 twice a day as well as BuSpar, omeprazole, potassium, estradiol, diazepam, fluoxetine, and sumatriptan. FINDINGS: This is a 21 digital channel recording utilizing international 10-20 electrode placement system. The EEG duration is greater than 60 minutes. The posterior dominant rhythm of the EEG is a normal 9 Hz symmetric background and attenuates with eye opening and larger with eye closure as normally expected. The amplitude is indeed normal. She also falls asleep and indeed has normal vertex waves, She also gets sleep spindles and she even has K complexes with the vertex wave after a spindle. During official stage II sleep wakefulness and drowse, there appear no obvious epileptiform transients, sharp waves, or seizures seen during the recording. She underwent photic stimulation which did not generate any pathological rhythms. A single-lead EKG showed a heart rate of about 60 beats per minute. IMPRESSION: This is a normal awake, drowse, and sleep EEG. Clinical correlation remains to be advised as EEG alone is an imperfect tool to exclude a seizure disorder. Sabino Coronel MD Dictated By: cc: * MRI Head w wo contrast (01/11/2013 1:20 PM CDT) Specimen Narrative Performed At [facility] Patient: JAZZY LOPEZ Phone #: Med Rec#: [id number] Sex: F : 1980 Harley#: [id number] Location: Check-in#: [id number] Procedure Requested: [id number] MRI HEAD W W O CONTRAST Reason For Exam: 345.10 GEN CNV EP IL W/O INTR EP Exam Ordered: 01/11/2013 130 3 Exam Date/Time: 01/11/2013 1410 Check-in Date/Time: 01/11/2013 1544 Attendin AZRA WALLACE Requestin JENS WALLACE Referrin NO, REFERRING Primary Care: [id number] BRENNAN CAM DO EXAMINATION: Magnetic resonance imaging (MRI) of the brain and brainstem without and with contrast History: Seizure. Technique: Multiplanar, multisequenc es were performed as part of a general brain protocol. Contrast information: 19 mL of Omniscan. Comparison: None available. Findings: Atypical for age approximatel y 7 bifrontal T2/FLAIR hyperintensities in the subcortical whi te matter. The temporal lobes show mild atrophy of both hippocampal h josé luis. Pertinent negatives are no FLAIR/T2 abnormal signal or definite ar chitecture distortion. In addition, the fornices/mamillary bodes are symmetric in size. No evidence of mass or AVM. Diffusion weighted images reveal no hyp erintensities to suggest acute cerebral infarction. The susceptibility weighted sequences reveal no evidence of acute or chronic hemorrhage . The ventricles are normal in size and position without evidence of h ydrocephalus. There are no areas of abnormal contrast enhancement. On the sagittal images, the scalp and c alvarium are normal. The superior sagittal sinus demonstrates normal veno us flow. The pituitary and sella are normal. The brainstem and craniocer vical junction are unremarkable. The upper cervical spinal cord and spin e are normal. Opacification of the middle ears and ma stoids with subtle enhancement consistent with inflammation. Prominent adenoids. The visualized portions of the orbits a nd paranasal sinuses are unremarkable. Normal flow voids are dem onstrated in the carotid arteries and basilar artery. IMPRESSION: Atypical for age approximately 7 bifron smith T2/FLAIR hyperintensities in the subcortical white matter, nonspecif ic. This can be due to migraines, chronic drug use, prior infe ction/inflammation, etc. The temporal lobes show mild atrophy of both hippocampal heads though no abnormal signal is seen within them. This is non-specific and without other features, remote bilateral meso t emporal sclerosis cannot be diagnosed by this isolated imaging feat ures. It may merely be due to long standing seizures. No cortical dysplasia. No malformation. No tumor. ATTESTATION STATEMENT: The Staff Radiologist has personally re viewed the images and dictated, reviewed, or edited the final report. INTERPRETATION SITE: [facility] . Signed (Authenticated, Released) Date-T alessia: 01/11/2013 2705 [employer] Faculty Member- SANTINO MAJOR M.D., Staff Radiologist Dictated By- TONY AMEZCUA D.O. Res ident Staff Physician- Gayle SOUZA M.D. Radiologist Authenticated By- SANTINO MAJOR M.D., Staff Radiologist Procedure Note Interface, Rad Conversion - 07/12/2013 12:35 PM RETAIL GROCER REPORT Patient: JAZZY LOPEZ Phone #: [employer] Rec#: [id number] Sex: F : 1980 Harley#: [id number] Location: RL Check-in#: [id number] Procedure Requested: [id number] MRI HEAD W WO CONTRAST Reason For Exam: 345.10 GEN CNV EPIL W/O INTR EP Exam Ordered: 01/11/2013 1303 Exam Date/Time: 01/11/2013 1410 Check-in Date/Time: 01/11/2013 1544 Attendin AVI WALLACE Requestin AVI WALLACE Referrin NO, REFERRING Primary Care: [id number] BRENNAN CAM DO EXAMINATION: Magnetic resonance imaging (MRI) of the brain and brainstem without and with contrast History: Seizure. Technique: Multiplanar, multisequences were performed as part of a general brain protocol. Contrast information: 19 mL of Omniscan. Comparison: None available. [...] in the carotid arteries and basilar artery. IMPRESSION: Atypical for age approximately 7 bifrontal T2/FLAIR [...] cortical dysplasia. No malformation. No tumor. ATTESTATION STATEMENT: The Staff Radiologist has personally reviewed the images and dictated, reviewed, or edited the final report. INTERPRETATION SITE: [facility]. Signed (Authenticated, Released) Date-Time: 01/11/2013 8758 [employer] Faculty Member- SANTINO MAJOR M.D., Staff Radiologist Dictated By- TONY AMEZCUA D.O., Resident Staff Physician- SANTINO MAJOR M.D., Staff Radiologist Authenticated By- SANTINO MAJOR M.D., Staff Radiologist Performing Organization Address City/State/Zipcode Ph one Number [place] documented in this encounter Visit Diagnoses Diagnosis Generalized convulsive epilepsy without mention of intractable epilepsy documented in this encounter
--- OUTSIDE RECORDS SUMMARY | 2019-12-05 23:57 | XMS REPORT | Encounter Summary ---
Author Author [facility] Organization [facility] Address Unknown Phone Unavailable Care Team Providers Care Belt Back Operator Name Role Phone PCP Unavailable Encounter Details Care Team Description Date Type Department [facility], Historical 12/24/2012 PracPart Note [facility] Social History Date Tobacco Use Types Packs/Day Years Used Never Assessed Sex Assigned at Date Recorded Not on file Industry Job Start Date Occupation Not on file Not on file Not on file Travel End Travel History Travel Start No recent travel history available. documented as of this encounter Progress Notes * [facility], Historical - 12/24/2012 1:36 PM CDT . :01:36PM .T:PA Status From: Raina Jernigan () Originated by: Raina Jernigan () Sent: 12/24 at 01:36PM To: Precertification (PC) Type: CHART Priority: 3 Subject: PA Status Patient is scheduled 01/11/13 @ [facility] for MRI Head w/wo checking the status t his patient was asighned to Ana but Ana is now in different possition and I am taking over her patient that she had scheduled, thanks SR documented in this encounter Plan of Treatment Not on filedocumented as of this encounter Visit Diagnoses Not on filedocumented in this encounter
--- OUTSIDE RECORDS SUMMARY | 2019-12-05 23:58 | XMS REPORT | Encounter Summary ---
Author Author [facility] Organization [facility] Address Unknown Phone Unavailable Care Team Providers Care Archeology Faculty Member Name Role Phone PCP Unavailable Encounter Details Care Team Description Date Type Department [facility], Historical 10/03/2011 PracPart Note [facility] Social History Date Tobacco Use Types Packs/Day Years Used Never Assessed Sex Assigned at Date Recorded Not on file Industry Job Start Date Occupation Not on file Not on file Not on file Travel End Travel History Travel Start No recent travel history available. documented as of this encounter Progress Notes * [facility], Historical - 10/03/2011 2:27 PM CDT . :02:27PM .T:[facility] Rx PDS/PU 10/05/11 - MJS had sent RX on 08/05/11 however sent this to incorrect pharmacy - have re-zetafaxed RX to [facility] - po From: Madhuri Andrade (GLORY) Originated by: Madhuri Andrade (GLORY) Sent: 10/03/2011 at 02:27PM To: Pamela Andrade (SPEEDY) Type: RX Priority: 3 Attachment: INVALID LINK:Jazzy Lopez [id number].tif - [id number]|[id number]\\T:\\ppart\\Gaurav es\\[id number]\\[id number]\\[id number]\\[id number]\\[id number]\\JWBI251\\AYEC379\\[id number]\\KYGR125\\LEVJ0 01\\IQBT341\\MMJY772\\GKHP704\\IBLE462\\PMYI658\\WOGN079\\AOVL156\\JALF022\\CUMD047\\LEVT2 46\\[id number].tif Subject: [facility] Rx PDS/PU PHARMACY REFILL REQUEST Pharmacy Name: Pharmacy Phone: Pharmacy Fax: Please refill the following medication for the above named patient Current Medications: Rx: TOPIRAMATE The last visit information is Link of original fax request: documented in this encounter Plan of Treatment Not on filedocumented as of this encounter Visit Diagnoses Not on filedocumented in this encounter"
--- OUTSIDE RECORDS SUMMARY | 2019-12-05 23:58 | XMS REPORT | Encounter Summary ---
Author Author [facility] Address Unknown Phone Unavailable Care Team Providers Care Pulp Tester Name Role Phone PCP Unavailable Encounter Details Care Team Description Date Type Department Avi Wolfe DO [address] [facility] [address] [place] [address] [phone] 12/22/2010 Hist-Visit [facility] Social History Date Tobacco Use Types Packs/Day Years Used Never Assessed Sex Assigned at Date Recorded Not on file Industry Job Start Date Occupation Not on file Not on file Not on file Travel End Travel History Travel Start No recent travel history available. documented as of this encounter Progress Notes * Avi Wolfe DO - 12/22/2010 11:33 AM CDT . : 11:33am .T: Return patient PV:S [facility], [facility] Shabnam Dhillon M.D. [address] [facility] Erasmo Dhillon M.D. [address] [place] [address] [place], [place] [address] [place] [address] [place] [address] Kalee Townsend M.D. Brad Wasserman M.D. Nia Moeller M.D. F ax: Avi Wolfe D.O. Lambert King M.D. [facility] Robin Lund M.D., Ph.D. Juliano Wynne M.D. 12/22/10 Zach Concepcion MD [address] [facility] [address] Re: Jazzy Lopez (formerly James) : [address] Concepcion: I saw Jazzy on December 22. I saw her on September 20 regarding her migraines, improve d, and migraine-associated dizziness. She is pleased how her migraines are doin g. She only had rare migraines, which sumatriptan aborted. Her dizziness is al so improved. She rarely takes diazepam 5 mg prn, which helps. She remains on to piramate 100 mg bid, which she is tolerating well. She saw a TMJ specialist who recommended that she see another specialist, but she cannot afford this. She martinez s had some jaw pain on the left when she is eating. She saw Tahmina Schwarz M.D. 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 She felt that she was depressed. She is on fl uoxetine 40 mg a day and buspirone 30 mg bid. She doesn't feel currently she is depressed. She just went through a divorce an d now is using her name. She has about 8 caffeinated beverages per day. Family history is unchanged. Complete review of systems per patient questionnaire, which I reviewed. On exam, she is alert with normal affect. She weighed 196-pounds. BP was 108/8 0 with pulse of 72 per minute. Scalp was non-tender. Hearing was grossly intac t to finger rub. Extraocular movements were intact without nystagmus. Coordina tion was intact. Gait was normal. Her migraines and associated dizziness are currently doing well. I will continu e her on her current medication regimen. She is currently not depressed. I phillip d her if she has any worsening mood disturbance, I agree with Dr. Schwarz that I would switch her antidepressants and consider switching her from buspirone and fluoxetine to Cymbalta. I did mention to her that TMJ may be contributing to he r dizziness and migraines and recommended she cut down on her caffeine usage. I plan on seeing her in followup in the next four months, or earlier if further problems develop. Sincerely yours, Lyndon Cha. JYOTHI/marcia cc Jayne Haines. # SIGNED BY Avi Wolfe DO (JYOTHI) 12/24/2010 08:21AM documented in this encounter Plan of Treatment Not on filedocumented as of this encounter Visit Diagnoses Not on filedocumented in this encounter
--- OUTSIDE RECORDS SUMMARY | 2019-12-05 23:58 | XMS REPORT | Encounter Summary ---
Author Author [facility] Address Unknown Phone Unavailable Care Team Providers Care Deposit Refund Clerk Name Role Phone PCP Unavailable Encounter Details Care Team Description Date Type Department Avi Wolfe DO [address] [place] [address] [phone] 08/03/2011 PracPart Note [facility] [address] [place] [address] Social History Date Tobacco Use Types Packs/Day Years Used Never Assessed Sex Assigned at Date Recorded Not on file Industry Job Start Date Occupation Not on file Not on file Not on file Travel End Travel History Travel Start No recent travel history available. documented as of this encounter Progress Notes * Avi Wolfe, - 08/03/2011 4:15 PM CDT . :04:15PM .T:Call from patient From: Avi Wolfe (MJS) Originated by: Avi Wolfe (RUSSS) Sent: 08/03/2011 at 04:15PM To: Yola Garcia () Type: CHART Priority: 3 Subject: Call from patient Original Message: From: ST To: MJGayle Subject: Call from patient Priority: 3 Date: 08/03/2011 Nurse Note: 08/03/11 Providers: : Physician Response: I called pt.RX double dose Medrol juanita.I called pharm [id number] 08/03/11 Reason for Call: Next Visit: None scheduled at this time - This 30 year old female reports by stephan ne she has been experiencing a migraine for 3 days and concerned about continuin g taking sumatriptan. She took one sumatriptan on Monday and one on Monday whic h aborted the headache but she will wake up with it again the next day. She is a lso currently taking Topamax 100 mg b.i.d. Please advise. Thanks! Yola t Call this patient at Home yes Other Contact Name and Number Current medications: Current Medications: Rx: FLUOXETINE 40mg 1 daily Rx: BUSPIRONE 30mg 1 twice daily Rx: OMEPRAZOLE 20mg 1 daily Rx: POTASSIUM GLUCONATE 1 daily Rx: ESTRADIOL 2mg 1 1/2 daily Rx: VALIUM 5mg 1 q 6-8h prn dizziness Rx: TOPIRAMATE 100mg 1TAB twice daily Rx: SUMATRIPTAN 100 mg 1TAB as directed Rx: MORPHINE SULFATE 15mg 1 every 4 hrs Rx: NABUMETONE 750mg 1 twice daily Rx: OXYCOD/APAP 10/325mg 1 every 4 hrs Rx: FLUOXETINE 20mg 3 caps daily Rx: VALIUM 5mg 1TAB q 6-8h prn dizziness 05/23/11 Robin Concepcion MD [address] [place] [address] [phone] Re: Jazzy Lopez : [address] Concepcion: I saw Jazzy on May 23. I saw her last February 21 regarding her migraines a nd migraine-associated dizziness. I felt that TMJ may be contributing to her mi graines and dizziness as well. She has cut down on her caffeine intake to about three drinks per day. She remains on topiramate 200 mg q hs. She only rarely h as migraines which sumatriptan 100 mg aborts. She also has some intermittent di zziness without migraines, which diazepam 5 mg helps. Her mood is stable on flu oxetine and buspirone. She has not seen a TMJ specialist due to financial reaso ns. I reviewed records from Avi Ortiz M.D. of ENT. Her main problem is abdominal pain. She is supposed to see a unit control clerk in the near future. She takes oxycodone 10/325 prn for abdominal pain. There are no changes in her meds. On examination, she is alert with normal affect and mood. She weighed 180 pound s. BP was 106/68 with pulse of 84 per minute. Extraocular movements were intact without nystagmus. Pupils were 3 mm round and reactive to light. There was no scalp tenderness. She had left TMJ clicking. Her migraines and dizziness are stable. I will continue her on her current medi cation regimen. I plan on seeing her in followup in the next six months, or earlier if further p roblems develop. Sincerely yours, Brad Cha/marcia documented in this encounter Plan of Treatment Not on filedocumented as of this encounter Visit Diagnoses Not on filedocumented in this encounter
--- OUTSIDE RECORDS SUMMARY | 2019-12-05 23:58 | XMS REPORT | Encounter Summary ---
Author Author [facility] Address Unknown Phone Unavailable Care Team Providers Care Resident Care Technician Name Role Phone PCP Unavailable Encounter Details Care Team Description Date Type Department Avi Wolfe DO [address] [place] [address] [phone] 09/20/2010 PracPart Note [facility] Neurol [facility] [address] [place] [address] Social History Date Tobacco Use Types Packs/Day Years Used Never Assessed Sex Assigned at Date Recorded Not on file Industry Job Start Date Occupation Not on file Not on file Not on file Travel End Travel History Travel Start No recent travel history available. documented as of this encounter Progress Notes * Avi Wolfe DO - 09/20/2010 3:40 PM CDT . :03:40PM .T:[facility] calling From: Avi Wolfe (JYOTHI) Originated by: Avi Wolfe (JYOTHI) Sent: 09/20/2010 at 03:40PM To: Serena Rubio) Type: CHART Priority: 3 Subject: [facility] calling DX vertigo.JYOTHI 09/20/10 Original Message: From: KRISTEN To: Gayle Subject: [facility] calling Priority: 3 Date: 09/20/2010 S- [facility] is calling about Valium script you wrote today you put for Dizziness. They need a different diagnosis for Valium. Please advise. Pharmacy number is [phone]. Thanks [place]RISTEN for [place] [id number] documented in this encounter Plan of Treatment Not on filedocumented as of this encounter Visit Diagnoses Not on filedocumented in this encounter
--- OUTSIDE RECORDS SUMMARY | 2019-12-05 23:58 | XMS REPORT | Encounter Summary ---
Author Author [facility] Address Unknown Phone Unavailable Care Team Providers Care Agricultural Systems Specialist Name Role Phone PCP Unavailable Encounter Details Care Team Description Date Type Department Avi Wolfe DO [address] [place] [address] [phone] 07/28/2010 PracPart Note [facility] Neurol ogy [address] [place] [address] Social History Date Tobacco Use Types Packs/Day Years Used Never Assessed Sex Assigned at Date Recorded Not on file Industry Job Start Date Occupation Not on file Not on file Not on file Travel End Travel History Travel Start No recent travel history available. documented as of this encounter Progress Notes * Avi Wolfe, - 07/28/2010 11:35 AM CDT . :11:35AM .T:rx not covered From: Avi Wolfe (MJS) Originated by: Avi Wolfe (RUSSS) Sent: 07/28/2010 at 11:35AM To: Pamela Andrade (SPEEDY) Type: RX Priority: 3 Subject: rx not covered Original Message: From: CO To: JYOTHI Subject: rx not covered Priority: 3 Date: 07/28/2010 Dr. Wolfe, The prescription for Transderm SC is not covered. Would you like to change this medication or try a prior authorization? Please advise. Thanks- Eliz Car [place] [phone] Re: Jazzy Ramirez : 78 Dear : I saw Jazzy on May 31. I saw her last February regarding her migraines. 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 H er migraines are much improved. She has only had two migraines since last seen, which sumatriptan 100 mg aborted. She remains on topiramate 50 mg in the morni ng and 100 mg q hs. Triggers for migraines include left TMJ. She is seeing Rickie Ortiz M.D. of ENT, who recently placed ear tubes in her ears for TMJ. She has had intermittent dizziness/vertigo in the past, which recently is increased. She describes a spinning sensation sometimes associated with nausea. Movements accentuate her symptoms. She has no ear fullness, tinnitus, or hearing loss. Her dizziness is not associated with headache or any other symptoms. She is now using a mouth guard. Her other meds include sucralfate, omeprazole, Mobic 15 mg daily, Estradiol, BuSpar, and fluoxetine 40 mg daily. On exam, she is alert with normal speech and affect. Gait was normal. She had a negative Romberg. She weighed 206-pounds. BP was 102/70 with pulse of 84 per minute. There was no scalp tenderness. She had left TMJ tenderness. Hearing w as grossly intact to finger rub. Extraocular movements were intact without nyst agmus. Strength was normal. Rapid alternating movements, finger to nose, and h eel to mata testing were intact. Her migraines are doing well. The etiology of her intermittent vertigo is not e ntirely clear. I asked her to get records from Avi Ortiz M.D. of ENT. I r ecommended she take prn Bonine every 6 hours for dizziness. If this is ineffect lalit, she is supposed to let me know. I plan on seeing her in followup in the next two months, or earlier if further p roblems develop. Sincerely yours, Lyndon Cha. JYOTHI/marcia # SIGNED BY Avi Wolfe DO (JYOTHI) 06/01/2010 12:58PM documented in this encounter Plan of Treatment Not on filedocumented as of this encounter Visit Diagnoses Not on filedocumented in this encounter
--- OUTSIDE RECORDS SUMMARY | 2019-12-05 23:58 | XMS REPORT | Encounter Summary ---
Author Author [facility] Address Unknown Phone Unavailable Care Team Providers Care Sociology Teacher Name Role Phone PCP Unavailable Encounter Details Care Team Description Date Type Department Avi Wolfe DO [address] [place] [address] [phone] 12/30/2010 PracPart Note [facility] ogy [address] [place] [address] Social History Date Tobacco Use Types Packs/Day Years Used Never Assessed Sex Assigned at Date Recorded Not on file Industry Job Start Date Occupation Not on file Not on file Not on file Travel End Travel History Travel Start No recent travel history available. documented as of this encounter Progress Notes * Avi Wolfe DO - 12/30/2010 12:48 PM CDT . :12:48PM .T:patient call From: Avi Wolfe ([facility]) Originated by: Avi Wolfe (JYOTHI) Sent: 12/30/2010 at 12:48PM To: Bere Andrade (PO) Type: CHART Priority: 3 Subject: patient call relayed to patient JYOTHI' response - RX zetafaxed - po OK to increase generic Prozac to 60 mg daily #30 x 5 refills.RX diazepam 5 mg #3 0 every 6 hrs prn dizziness.RUSSS 12/30/10 Original Message: From: PO To: RUSSS Subject: patient call Priority: 3 Date: 12/30/2010 Nurse Note: PO Providers: : Physician Response: Patient Last Visit 12/22/10 Next Visit 05/04/11 Reason for Call: This 30 year old female reports by phone that she was to call and let you know w hen she was ready for a diazepam RX. Also she notes you told her to let you know if she feels her fluoxetine needs increased from 40mg daily as she has noted her mood to be up and down. Let me know about sending the RXs - po 12/22/10 Zach Concepcion MD [address] [place] [phone] Re: Jazzy Lopez (formerly James) : 78 [...] left when she is eating. 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 She felt that she was depressed. [...] yours, Lyndon Cha. JYOTHI/marcia cc Jayne Haines. documented in this encounter Plan of Treatment Not on filedocumented as of this encounter Visit Diagnoses Not on filedocumented in this encounter
--- OUTSIDE RECORDS SUMMARY | 2019-12-05 23:58 | XMS REPORT | Encounter Summary ---
Author Author [facility] Address Unknown Phone Unavailable Care Team Providers Care Lens Maker Name Role Phone PCP Unavailable Encounter Details Care Team Description Date Type Department [facility], Historical 07/26/2010 PracPart Note [facility] Social History Date Tobacco Use Types Packs/Day Years Used Never Assessed Sex Assigned at Date Recorded Not on file Industry Job Start Date Occupation Not on file Not on file Not on file Travel End Travel History Travel Start No recent travel history available. documented as of this encounter Progress Notes * [facility], Historical - 07/26/2010 10:27 AM CDT . :10:27AM .T:MJS Rx From: Madhuri Andrade (GLORY) Originated by: Madhuri Andrade (GLORY) Sent: 07/26/2010 at 10:27AM To: Pamela Andrade (SPEEDY) Type: RX Priority: 3 Attachment: INVALID LINK:Jazzy aRmirez [id number] GLORY.tif - [id number]|[id number]\\M:\\ppart\\ Files\\ZNFX360\\DNTT062\\JYCQ630\\KLIH455\\JIEH605\\SKCT474\\IBJV532\\UHSK293\\NVAZ108\\LE VJ001\\HWEL383\\CAFF596\\KWPB306\\CCNB806\\ZSZL501\\WEQY185\\UEUS936\\TVTL468\\DNXU565\\LE VT001\\[id number].tif Subject: MJS Rx PHARMACY REFILL REQUEST Pharmacy Name: Pharmacy Phone: Pharmacy Fax: Please refill the following medication for theabove named patient Current Medications: Rx: TOPIRAMATE 100mg Rx: TOPIRAMATE 50mg The last visit information is Link of original fax request: documented in this encounter Plan of Treatment Not on filedocumented as of this encounter Visit Diagnoses Not on filedocumented in this encounter"
--- OUTSIDE RECORDS SUMMARY | 2019-12-05 23:58 | XMS REPORT | Encounter Summary ---
Author Author [facility] Address Unknown Phone Unavailable Care Team Providers Care Medical Insurance Claims Specialist Name Role Phone PCP Unavailable Encounter Details Care Team Description Date Type Department Debbie Henry MD [address] [place] [address] [phone] 06/29/2011 PracPart Note [facility] Neurol ogy [address] [place] [address] Social History Date Tobacco Use Types Packs/Day Years Used Never Assessed Sex Assigned at Date Recorded Not on file Industry Job Start Date Occupation Not on file Not on file Not on file Travel End Travel History Travel Start No recent travel history available. documented as of this encounter Progress Notes * Debbie Henry MD - 06/29/2011 4:48 PM AUTO BODY PAINTER . : 04:48pm .T: prescription request Zetafaxed prescription for Valium and e-faxed prescription for fluoxetine to Milvia brown in [place] per patient's request-co documented in this encounter Plan of Treatment Not on filedocumented as of this encounter Visit Diagnoses Not on filedocumented in this encounter
--- OUTSIDE RECORDS SUMMARY | 2019-12-05 23:58 | XMS REPORT | Encounter Summary ---
Author Author [facility] Address Unknown Phone Unavailable Care Team Providers Care Application Release Manager Name Role Phone PCP Unavailable Encounter Details Care Team Description Date Type Department [facility], Historical 07/27/2010 PracPart Note [facility] Social History Date Tobacco Use Types Packs/Day Years Used Never Assessed Sex Assigned at Date Recorded Not on file Industry Job Start Date Occupation Not on file Not on file Not on file Travel End Travel History Travel Start No recent travel history available. documented as of this encounter Progress Notes * [facility], Historical - 07/27/2010 2:00 PM CDT . :02:00PM .T:MJS Rx From: Madhuri Andrade (GLORY) Originated by: Madhuri Andrade (GLORY) Sent: 07/27/2010 at 02:00PM To: Pamela Andrade (SPEEDY) Type: RX Priority: 3 Attachment: INVALID LINK:Jazzy Hart [id number] GLORY.tif - [id number]|[id number]\\M:\\ppart\\ Files\\WJWT668\\HUXW309\\YMAL339\\TLHN933\\QDVO498\\BEVZ458\\XIXI969\\YPWI310\\VMOQ141\\LE VJ001\\SDNJ541\\ZTED310\\BGVL117\\YFYP578\\HHKO734\\NNXO849\\TLSE107\\JGOA941\\IJEE294\\LE VT004\\[id number].tif Subject: MJS Rx PHARMACY REFILL REQUEST Pharmacy Name: Pharmacy Phone: Pharmacy Fax: Please refill the following medication for theabove named patient Current Medications: Rx: TRANSDERM SCOP PATCH The last visit information is Link of original fax request: documented in this encounter Plan of Treatment Not on filedocumented as of this encounter Visit Diagnoses Not on filedocumented in this encounter"
--- OUTSIDE RECORDS SUMMARY | 2019-12-05 23:58 | XMS REPORT | Encounter Summary ---
Author Author [facility] Address Unknown Phone Unavailable Care Team Providers Care Outpatient Psychiatrist Name Role Phone PCP Unavailable Encounter Details Care Team Description Date Type Department [facility], Historical 08/05/2011 PracPart Note [facility] Social History Date Tobacco Use Types Packs/Day Years Used Never Assessed Sex Assigned at Date Recorded Not on file Industry Job Start Date Occupation Not on file Not on file Not on file Travel End Travel History Travel Start No recent travel history available. documented as of this encounter Progress Notes * [facility], Historical - 08/05/2011 3:23 PM CDT . :03:23PM .T:MJS RX NOTE: Prescription was electronically transmitted on 08/05/11 and system says it was delivered. - st From: Shabnam Vivas (CAROLYN) Originated by: Shabnam Vivas (CAROLYN) Sent: 08/05/2011 at 03:23PM To: Pamela Andrade (SPEEDY) Type: RX Priority: 3 Attachment: INVALID LINK:Jazzy Lopez CAROLYN [id number].tif - [id number]|[id number]\\T:\\ppart\\Fi les\\ATXU891\\OIMA958\\MZCW509\\GFXC991\\UDSX205\\AIJJ020\\KNDR728\\TQDA600\\YFLM871\\LEVJ 001\\VDAW329\\SGYO991\\CMBU518\\BUVC456\\OYNA670\\XHPG389\\TBZZ250\\YIBI180\\NCJU457\\LEVT 139\\[id number].tif Subject: MJS RX PHARMACY REFILL REQUEST Pharmacy Name: Pharmacy Phone: Pharmacy Fax: Please refill the following medication for the above named patient Current Medications: Rx: TOPIRAMATE 100mg 1TAB twice daily The last visit information is Link of original fax request: documented in this encounter Plan of Treatment Not on filedocumented as of this encounter Visit Diagnoses Not on filedocumented in this encounter"
--- OUTSIDE RECORDS SUMMARY | 2019-12-05 23:58 | XMS REPORT | Encounter Summary ---
Author Author [facility] Address Unknown Phone Unavailable Care Team Providers Care Sorting Grapple Operator Name Role Phone PCP Unavailable Encounter Details Care Team Description Date Type Department Radha Carrasco MD Retired 01/26/2012 PracPart Note [facility] Neurol ogy [address] [place] [address] Social History Date Tobacco Use Types Packs/Day Years Used Never Assessed Sex Assigned at Date Recorded Not on file Industry Job Start Date Occupation Not on file Not on file Not on file Travel End Travel History Travel Start No recent travel history available. documented as of this encounter Progress Notes * Radha Carrasco MD - 01/26/2012 3:36 PM CDT . : 03:36pm .T: patient call patient called to request an RX for fluoxetine 20mg 3 cap daily be sent to [facility] - this was done - po documented in this encounter Plan of Treatment Not on filedocumented as of this encounter Visit Diagnoses Not on filedocumented in this encounter
--- OUTSIDE RECORDS SUMMARY | 2019-12-05 23:58 | XMS REPORT | Encounter Summary ---
Author Author [facility] Organization [facility] Address Unknown Phone Unavailable Care Team Providers Care Sprinkler Driver Name Role Phone PCP Unavailable Encounter Details Care Team Description Date Type Department [facility], Historical 08/02/2011 PracPart Note [facility] Social History Date Tobacco Use Types Packs/Day Years Used Never Assessed Sex Assigned at Date Recorded Not on file Industry Job Start Date Occupation Not on file Not on file Not on file Travel End Travel History Travel Start No recent travel history available. documented as of this encounter Progress Notes * [facility], Historical - 08/02/2011 10:49 AM CDT . :10:49AM .T:MJS RX e-faxed rx-co From: Shabnam Vivas (CAROLYN) Originated by: Shabnam Vivas (CAROLYN) Sent: 08/02/2011 at 10:49AM To: Pamela Andrade (SPEEDY) Type: RX Priority: 3 Attachment: INVALID LINK:Jazzy Lopez CAROLYN [id number].tif - [id number]|[id number]\\T:\\ppart\\Fi les\\NMXC412\\TEIS997\\JOQW040\\RPOJ269\\BERZ172\\VBKV584\\UFJL202\\BPHV773\\XMLS886\\LEVJ 001\\PEXN024\\LTLA569\\WEQV434\\XDCG989\\UJRI693\\XVSP084\\JPYX416\\GDYB874\\VOSM043\\LEVT 131\\[id number].tif Subject: MJS RX PHARMACY REFILL REQUEST Pharmacy [...]
--- OUTSIDE RECORDS SUMMARY | 2019-12-05 23:58 | XMS REPORT | Encounter Summary ---
Author Author [facility] Address Unknown Phone Unavailable Care Team Providers Care Golf Ball Marker Name Role Phone PCP Unavailable Encounter Details Care Team Description Date Type Department [facility], Historical 08/09/2010 PracPart Note [facility] Social History Date Tobacco Use Types Packs/Day Years Used Never Assessed Sex Assigned at Date Recorded Not on file Industry Job Start Date Occupation Not on file Not on file Not on file Travel End Travel History Travel Start No recent travel history available. documented as of this encounter Progress Notes * [facility], Historical - 08/09/2010 3:20 PM CDT . :03:20PM .T:MJS Rx From: Madhuri Andrade (GLORY) Originated by: Madhuri Andrade (GLORY) Sent: 08/09/2010 at 03:20PM To: Pamela Andrade (SPEEDY) Type: RX Priority: 3 Attachment: INVALID LINK:Jazzy Ramirez 80.tif - [id number]|[id number]\\M:\\ppart\\Fi les\\MLIX789\\OTTU526\\MOIJ999\\MMNA802\\LWMF991\\HXWQ518\\FVAY159\\FMFY608\\THBN661\\LEVJ 001\\OJYZ931\\SMEM183\\SKPL340\\PFZP812\\UKII758\\ZRWA413\\OPEF874\\IFPI364\\KUVF812\\LEVT 025\\[id number].tif Subject: MJS Rx PHARMACY REFILL REQUEST Pharmacy Name: Pharmacy Phone: Pharmacy Fax: Please refill the following medication for the above named patient Current Medications: Rx:Topiramate The last visit information is Link of original fax request: documented in this encounter Plan of Treatment Not on filedocumented as of this encounter Visit Diagnoses Not on filedocumented in this encounter"
--- OUTSIDE RECORDS SUMMARY | 2019-12-05 23:58 | XMS REPORT | Encounter Summary ---
Author Author [facility] Address Unknown Phone Unavailable Care Team Providers Care Armature Winder Helper Repair Name Role Phone PCP Unavailable Encounter Details Care Team Description Date Type Department Avi Wallace, [address] [place] [address] [phone] 04/25/2011 PracPart Note [facility] Neurol ogy [address] [place] [address] Social History Date Tobacco Use Types Packs/Day Years Used Never Assessed Sex Assigned at Date Recorded Not on file Industry Job Start Date Occupation Not on file Not on file Not on file Travel End Travel History Travel Start No recent travel history available. documented as of this encounter Progress Notes * Avi Wallace DO - 04/25/2011 9:18 AM CHILD STUDY TEAM DIRECTOR . :09:18AM .T:Rx Renew Request e-faxed rx-co From: Originated by: Sent: 04/24/2011 at 02:18PM To: Pamela Andrade (CO) Type: RX Priority: 3 Subject: Rx Renew Request A refill request has been received from the [employer] network. ATTENTION: Please compare the details of the prescription in practice partner (b y clicking "Link" button below) to be sure they match the details of the refill request in this message. Patient: Name: JAZZY LOPEZ Gender: F Date of : 1980 ID Number: [id number] Medication: Medication to be filled: SUMATRIPTAN 100MG TAB Sig: TAKE 1 TABLETAT ONSET OF HEADACHE, MAY REPEAT 1 TIME IN 2 HOURS. DO NOT EXC EED 2 IN 24 HOURS AND NO MORE THAN 2 TIMES PER WEEK Quantity: 9 Each Days Supply 10 Refills: 4 Total Fills (Rx + Refills): 5 Substitution Status: Substitutions allowed Date of original prescription: 01/12/2010 Date medication last filled: 11/28/2010 Indication(s): (No Data Received) [facility] Pharmacist: Email: [phone] Prescriber: Name: AVI WALLACE Technical Data: (for reference) Discourse Message ID: [id number] Prescription Reference Number: [id number] Prescriber Order Number: [id number] Pharmacy FLPDP ID: [id number] documented in this encounter Plan of Treatment Not on filedocumented as of this encounter Visit Diagnoses Not on filedocumented in this encounter
--- OUTSIDE RECORDS SUMMARY | 2019-12-05 23:58 | XMS REPORT | Encounter Summary ---
Author Author [facility] Organization [facility] Address Unknown Phone Unavailable Care Team Providers Care Outside Operator Name Role Phone PCP Unavailable Encounter Details Care Team Description Date Type Department [facility], Historical 10/19/2010 PracPart Note [facility] Social History Date Tobacco Use Types Packs/Day Years Used Never Assessed Sex Assigned at Date Recorded Not on file Industry Job Start Date Occupation Not on file Not on file Not on file Travel End Travel History Travel Start No recent travel history available. documented as of this encounter Progress Notes * [facility], Historical - 10/19/2010 9:06 AM CDT . :09:06AM .T:MJS Rx zetafaxed rx-co From: Makenna Whitehead (OB) Originated by: Makenna Whitehead (OB) Sent: 10/19/2010 at 09:06 AM To: Pamela Andrade (CO) Type: RX Priority: 3 Attachment: INVALID LINK:Jazzy Ramirez [id number].tif - [id number]|[id number]\\M:\\ppart\\ Files\\GZYR214\\NKQW422\\MLBJ796\\XIGI233\\HCMO402\\FCWV856\\JUOR394\\NWJU734\\WWSJ698\\LE VJ001\\BFNG012\\JGGP722\\TWCX175\\DBKG101\\ZQGF668\\DSIC524\\MCZL506\\CYSB330\\IMKF717\\LE VT145\\[id number].tif Subject: MJS Rx PHARMACY REFILL REQUEST Pharmacy Name: Pharmacy Phone: Pharmacy Fax: Please refill the following medication for the above named patient Current Medications: Rx: TOPIRAMATE 100mg 1 twice daily The last visit information is Link of original fax request: documented in this encounter Plan of Treatment Not on filedocumented as of this encounter Visit Diagnoses Not on filedocumented in this encounter"
--- OUTSIDE RECORDS SUMMARY | 2019-12-05 23:58 | XMS REPORT | Encounter Summary ---
Author Author [facility] Organization [facility] Address Unknown Phone Unavailable Care Team Providers Care Motorcycle Builder Name Role Phone PCP Unavailable Encounter Details Care Team Description Date Type Department [facility], Historical 07/28/2010 PracPart Note [facility] Social History Date Tobacco Use Types Packs/Day Years Used Never Assessed Sex Assigned at Date Recorded Not on file Industry Job Start Date Occupation Not on file Not on file Not on file Travel End Travel History Travel Start No recent travel history available. documented as of this encounter Progress Notes * [facility], Historical - 07/28/2010 11:36 AM CDT . :11:36AM .T:MJS Rx e-faxed rx w/ increased dose per last letter 100mg b.i.d-co From: Makenna Whitehead (OB) Originated by: Makenna Whitehead (OB) Sent: 07/28/2010 at 11:36 AM To: Pamela Andrade (CO) Type: RX Priority: 3 Attachment: INVALID LINK:Jazzy Ramirez [id number].tif - [id number]|[id number]\\M:\\ppart\\ Files\\GBGZ852\\MBLY479\\CWWX725\\PGSB428\\DCGJ918\\XGOM536\\HJER659\\FJNV564\\GWJU084\\LE VJ001\\YKKE653\\CMLK798\\NRTW298\\EPXR696\\SOJJ868\\VQCR943\\MBWZ212\\RANX279\\CKZG526\\LE VT006\\[id number].tif Subject: MJS Rx PHARMACY REFILL REQUEST Pharmacy Name: Pharmacy Phone: Pharmacy Fax: Please refill the following medication for the above named patient Current Medications: Rx: TOPIRAMATE 100mg 1 at bedtime The last visit information is Link of original fax request: documented in this encounter Plan of Treatment Not on filedocumented as of this encounter Visit Diagnoses Not on filedocumented in this encounter"
--- OUTSIDE RECORDS SUMMARY | 2019-12-05 23:58 | XMS REPORT | Encounter Summary ---
Author Author [facility] Address Unknown Phone Unavailable Care Team Providers Care Senior Statistician Name Role Phone PCP Unavailable Encounter Details Care Team Description Date Type Department Avi Wolfe DO [address] [place] [address] [phone] 07/28/2010 PracPart Note [facility] Neurol ogy [address] [place] [address] Social History Date Tobacco Use Types Packs/Day Years Used Never Assessed Sex Assigned at Date Recorded Not on file Industry Job Start Date Occupation Not on file Not on file Not on file Travel End Travel History Travel Start No recent travel history available. documented as of this encounter Progress Notes * Avi Wolfe, - 07/28/2010 12:30 PM CDT . :12:30PM .T:rx not covered I called patient and relayed msg. She will buy 1 or 2 patches out of pocket and call the office if the medication is helpful to try a PA-co From: Avi Wolfe (S) Originated by: Avi Wolfe (RUSSS) Sent: 07/28/2010 at 12:30PM To: Pamela Andrade (CO) Type: RX Priority: 3 Subject: rx not covered Please call pt. I box #4 patches cost approv 56$. I recommend that she try & buy just 1 patch approx 18 $ out of pocket & if it works ,I can call insurance re potential authorization for chronic use.JYOTHI 07/28/10 From: CO To: JYOTHI Subject: rx not covered Priority: 3 Date: 07/28/2010 Dr. Wolfe, The prescription for Transderm SC is not covered. Would you like to change this medication or try a prior authorization? Please advise. Thanks- Eliz 05/31/10 Zach Concepcion MD [address] [facility] [address] Re: Jazzy Ramirez : [address] Concepcion: I saw Jazzy on May 31. I [...]
--- OUTSIDE RECORDS SUMMARY | 2019-12-05 23:58 | XMS REPORT | Encounter Summary ---
Author Author [facility] Address Unknown Phone Unavailable Care Team Providers Care Foam Rubber Molder Name Role Phone PCP Unavailable Encounter Details Care Team Description Date Type Department Avi Wolfe, DO [address] [address] [phone] 02/07/2012 Hist-Visit [facility] Social History Date Tobacco [...]
--- OUTSIDE RECORDS SUMMARY | 2019-12-05 23:58 | XMS REPORT | Encounter Summary ---
Author Author [facility] Address Unknown Phone Unavailable Care Team Providers Care Small Package And Bundle Sorter Clerk Name Role Phone PCP Unavailable Encounter Details Care Team Description [place] [address] [facility] [address] [place] [address] [phone] 04/19/2011 PracPart Note [facility] ogy [address] [place] [address] Social History Date Tobacco Use Types Packs/Day Years Used Never Assessed Sex Assigned at Date Recorded Not on file Industry Job Start Date Occupation Not on file Not on file Not on file Travel End Travel History Travel Start No recent travel history available. documented as of this encounter Progress Notes * Lambert King MD - 04/19/2011 3:25 PM SHIPPING RECEIVING MANAGER . : 03:25pm .T: prescription request [facility]. She has an appt on 05/23/11-co documented in this encounter Plan of Treatment Not on filedocumented as of this encounter Visit Diagnoses Not on filedocumented in this encounter
--- OUTSIDE RECORDS SUMMARY | 2019-12-05 23:58 | XMS REPORT | Encounter Summary ---
Author Author [facility] Organization [facility] Address Unknown Phone Unavailable Care Team Providers Care Harp Action Assembler Name Role Phone PCP Unavailable Encounter Details Care Team Description Date Type Department [facility], Historical 07/07/2011 PracPart Note [facility] Social History Date Tobacco Use Types Packs/Day Years Used Never Assessed Sex Assigned at Date Recorded Not on file Industry Job Start Date Occupation Not on file Not on file Not on file Travel End Travel History Travel Start No recent travel history available. documented as of this encounter Progress Notes * [facility], Historical - 07/07/2011 11:33 AM TALLOW PUMPER . :11:33AM .T:MJS RX prescription was already faxed to [facility] on 06/29/11 per patient's request-co From: Cha Byrd (DP) Originated by: Cha Byrd (DP) Sent: 012 at 11:33AM To: Pamela Andrade ([place]) Type: RX Priority: 3 Attachment: INVALID LINK:Jazzy Lopez [id number].tif - [id number]|[id number]\\T:\\ppart\\Fi les\\SGQX155\\YWJW104\\GMYI261\\BUAJ073\\GVET892\\YSQE552\\WCUN167\\JWOK681\\KPST900\\LEVJ 001\\RCGB088\\PMOL747\\JPDB811\\SWJX885\\KOEA761\\HDOB900\\TNAD377\\KMUE992\\YXLU471\\LEVT 089\\[id number] Subject: MJS RX PHARMACY REFILL REQUEST Pharmacy Name: Pharmacy Phone: Pharmacy Fax: Please refill the following medication for the above named patient Current Medications: Rx: FLUOXETINE 20mg 3 caps daily The last visit information is Link of original fax request: documented in this encounter Plan of Treatment Not on filedocumented as of this encounter Visit Diagnoses Not on filedocumented in this encounter"
--- OUTSIDE RECORDS SUMMARY | 2019-12-05 23:58 | XMS REPORT | Encounter Summary ---
Author Author [facility] Address Unknown Phone Unavailable Care Team Providers Care Hardware Developer Name Role Phone PCP Unavailable Encounter Details Care Team Description Date Type Department Robin Lund MD [address] [place] [address] [phone] 09/20/2010 PracPart Note [facility] [address] [place] [address] Social History Date Tobacco Use Types Packs/Day Years Used Never Assessed Sex Assigned at Date Recorded Not on file Industry Job Start Date Occupation Not on file Not on file Not on file Travel End Travel History Travel Start No recent travel history available. documented as of this encounter Progress Notes * Robin Lund MD - 09/20/2010 3:57 PM CDT . :03:57PM .T:[facility] calling From: Avi Wolfe ([facility] Originated by: Avi Wolfe ([facility]) Sent: 09/20/2010 at 03:40PM To: Serena Rubio V (KRISTEN) Type: CHART Priority: 3 Subject: [facility] calling DX vertigo.[facility] 09/20/10 called pharmacist KRISTEN Original Message: From: KRISTEN To: [facility] Subject: [facility] calling Priority: 3 Date: 09/20/2010 S- [facility] is calling about Valium script you wrote today you put for Dizziness. They need a different diagnosis for Valium. Please advise. Pharmacy number is [phone]. Thanks [place] for [place] [phone] documented in this encounter Plan of Treatment Not on filedocumented as of this encounter Visit Diagnoses Not on filedocumented in this encounter
--- OUTSIDE RECORDS SUMMARY | 2019-12-05 23:58 | XMS REPORT | Encounter Summary ---
Author Author [facility] Address Unknown Phone Unavailable Care Team Providers Care Supercharge Repair Supervisor Name Role Phone PCP Unavailable Encounter Details Care Team Description Date Type Department Avi Wolfe DO [address] [facility] [address] [place] [address] [phone] 07/27/2010 Hist-Visit [facility] Social History Date Tobacco Use Types Packs/Day Years Used Never Assessed Sex Assigned at Date Recorded Not on file Industry Job Start Date Occupation Not on file Not on file Not on file Travel End Travel History Travel Start No recent travel history available. documented as of this encounter Progress Notes * Avi Wolfe DO - 07/27/2010 10:50 AM CDT . : 10:50am .T: Return patient PV:S [facility] Shabnam Dhillon M.D. [address] 20 [facility] Erasmo Dhillon M.D. [address] [place] [address] [place], [place] [address] [place] [address] [place] [address] Kalee Townsend M.D. Brad Wasserman M.D. Nia Moeller M.D. F ax: Avi Wolfe D.O. Lambert King M.D. [facility] Robin Lund M.D., Ph.D. Juliano Wynne M.D. 07/27/10 Zach Concepcion MD [address] [place] [id number] Re: Jazzy Ramirez : [address] Concepcion: I saw Jazzy on July 27. I saw her on May 31 regarding migraines and vert igo. She has had more frequent migraines the last two weeks, almost daily. She reports a severe left frontal headache associated with nausea and photophobia. She has no associated dizziness. She remains on topiramate 50 mg in the morning and 100 mg q hs and takes sumatriptan 100 mg, which aborts her migraines. She has had no problems with TMJ and wears a mouthguard. She has been under a lot of stress with personal problems. Her main problem is multiple episodes of rigoberto y vertigo without headache. She has no associaed aural fullness, tinnitus, or h earing loss. She tried Bonine, which was ineffective. Records from Avi duvall M.D. of ENT are not available to me. 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 H er other meds include potassium, Estradiol, fluoxetine 40 mg daily, potassium, s ucralfate, omeprazole, BuSpar, and diclofenac. Family history is unchanged. Social History: She began smoking again. Complete review of systems per patient questionnaire. On exam, she is a pleasant woman, alert, with normal affect, in no distress. Sp eech was normal. She weighed 202-pounds. BP was 122/80 with pulse of 72 per mi nute. Scalp was non-tender. Cervical ROM was normal without tenderness. There was no TMJ tenderness. Pupils were 3 mm round and reactive to light. Hearing was grossly intact to finger rub. Otoscopic examination was normal. Strength w as normal. There was no tremor. Rapid alternating movements, finger to nose, a nd heel to mata testing was intact. Gait was normal. Romberg was negative. Ta ndem was normal. She is experiencing problematic migraines. This may be stress-related. I am in creasing her topiramate to 100 mg bid and recommend she continue taking sumatrip boyd for abortive therapy. If this is ineffective, I told her she may benefit fr om some stress management. The etiology of her intermittent vertigo is unclear. I am requesting records from Avi Ortiz M.D. of ENT. I am initiating a tr ial of transderm scopolamine patch to change every 72 hours #4 with two addition al refills. I discussed potential side effects. I am referring her to Neeraj villagran, vestibular reports analysis manager, for further evaluation. I plan on seeing her in followup in the next six weeks, or earlier if further pr oblems develop. Sincerely yours, Lyndon Cha. JYOTHI/marcia # SIGNED BY Avi Wolfe DO (JYOTHI) 07/29/2010 10:10AM documented in this encounter Plan of Treatment Not on filedocumented as of this encounter Visit Diagnoses Not on filedocumented in this encounter
--- OUTSIDE RECORDS SUMMARY | 2019-12-05 23:58 | XMS REPORT | Encounter Summary ---
Author Author [facility] Organization [facility] Address Unknown Phone Unavailable Care Team Providers Care School Nurse Name Role Phone PCP Unavailable Encounter Details Care Team Description Date Type Department Avi Wolfe DO [address] [facility] [address] [address] [phone] 11/14/2011 Hist-Visit [facility] Social History Date Tobacco Use Types Packs/Day Years Used Never Assessed Sex Assigned at Date Recorded Not on file Industry Job Start Date Occupation Not on file Not on file Not on file Travel End Travel History Travel Start No recent travel history available. documented as of this encounter Progress Notes * Avi Wolfe DO - 11/14/2011 11:19 AM CDT . : 11:19am .T: return patient PV:S [facility] Shabnam Dhillon M.D. [address] 20 [facility] Erasmo Dhillon M.D. [address] Radha Carrasco M.D. [address] [place], [place] [address] [place] [address] Kalee Townsend M.D. Brad Wasserman M.D. Nia Moeller M.D. F ax: Avi Wolfe D.O. Lambert King M.D. [facility] Robin Lund M.D., Ph.D. Juliano Wynne M.D. 11/14/11 Robin Concepcion MD [address] [place], [place] [address] [place] [address] Re: Jazzy Lopez [address] Concepcion: I saw Jazzy on November 13. I saw her on May 23 regarding migraines, migraine-as sociated dizziness, and left TMJ. She remains on topiramate 200 mg q hs. She h as had rare episodes of dizziness without headache, which diazepam 5 mg helps. She also takes diazepam for anxiety/stress, which helps. She remains on fluoxet ine and buspirone. She sees a therapist and a psychiatrist on a regular basis. She has been more taylor and irritable. She has also been under a lot of stress with an 8 year old son with ADHD and bipolar disorder. For the last week, she's been having intractable migraine of variable intensity, predominantly in the l eft parietal area, associated with nausea, photophobia, sonophobia, and movement -sensitive dizziness. Sumatriptan 100 mg helps temporarily. The intensity of t he headache averages about 4 and varies anywhere from 3 to 9. She had a similar prolonged migraine in July for three days, which a double dose Medrol Dosepak helped. She is currently off narcotics for abdominal pain and takes tramadol 50 mg prn back spasms. She drinks about six caffeinated beverages per day. She de nies any jaw pain. She sees Tahmina Schwarz M.D. 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 On exam, she is alert. Her affect is slightly blunted. She currently rates her headache on a scale of 1 to 10 a 4. She weighed 180 pounds. BP was 118/70 with pulse of 72 per minute. There was no scalp tenderness. Cervical ROM was normal without tenderness. There was no TMJ tenderness. She had left TMJ clicking. Extraocular movements were intact without nystagmus. Pupils were 4 mm round and reactive to light. There was no visual field deficit. Fundi were normal. Gait was normal. She is experiencing problematic migraines. She may be in migraine status. I am prescribing another trial of double dose Medrol Dosepak. She is supposed to ca ll me in the next one week if she is no better. I feel that her migraines are t ied into her mood. She is instructed to keep a headache log. I recommended she cut down on her caffeine intake. I plan on seeing her in followup in the next two months, or earlier if further p roblems develop. Sincerely yours, Avi Wolfe D.O. JYOTHI/marcia # SIGNED BY Avi Wolfe DO (JYOTHI) 11/17/2011 09:01AM documented in this encounter Plan of Treatment Not on filedocumented as of this encounter Visit Diagnoses Not on filedocumented in this encounter
--- OUTSIDE RECORDS SUMMARY | 2019-12-05 23:58 | XMS REPORT | Encounter Summary ---
Author Author [facility] Address Unknown Phone Unavailable Care Team Providers Care Portfolio Manager Name Role Phone PCP Unavailable Encounter Details Care Team Description Date Type Department Debbie Henry MD [address] [place] [address] [phone] 01/26/2012 PracPart Note [facility] Neu[facility] [address] [place] [address] Social History Date Tobacco Use Types Packs/Day Years Used Never Assessed Sex Assigned at Date Recorded Not on file Industry Job Start Date Occupation Not on file Not on file Not on file Travel End Travel History Travel Start No recent travel history available. documented as of this encounter Progress Notes * Debbie Henry MD - 01/26/2012 3:49 PM CDT . :03:49PM .T:Rx Renew Request 01/30/12 - pt called as Conchis only received the fluoxetine RX - I told her thi s was sent via zetafax on 01/26/12 but that I would re-send it again - po zetafaxed rx-co From: Originated by: Sent: 01/25/2012 at 06:48PM To: Pamela Andrade ([place]) Type: RX Priority: 3 Subject: Rx Renew Request A refill request has been received from the [facility] network. ATTENTION: Please compare the details of the prescription in practice partner (b y clicking "Link" button below) to be sure they match the details of the refill request in this message. Patient: Name: JAZZY LOPEZ Gender: F Date of : 1980 ID Number: [id number] Medication: Medication to be filled: DIAZEPAM 5MG TAB Sig: TAKE ONE TABLET BY MOUTH EVERY 6 TO 8 HOURS NEEDED FOR DIZZINESS Quantity: 30 Each Days Supply 10 Refills: 4 Total Fills (Rx + Refills): 5 Substitution Status: Substitutions allowed Date of original prescription: 09/08/2011 Date medication last filled: 12/08/2011 Indication(s): (No Data Received) Pharmacy: Name: [facility] Pharmacist: Email: [phone] Prescriber: Name: BIA WALLACE Technical Data: (for reference) [place] Message ID: [id number] Prescription Reference Number: [id number] Pharmacy IAPDP ID: [id number] documented in this encounter Plan of Treatment Not on filedocumented as of this encounter Visit Diagnoses Not on filedocumented in this encounter
--- OUTSIDE RECORDS SUMMARY | 2019-12-05 23:58 | XMS REPORT | Encounter Summary ---
Author Author [facility] Organization [facility] Address Unknown Phone Unavailable Care Team Providers Care Book Repairer Name Role Phone PCP Unavailable Encounter Details Care Team Description Date Type Department [facility], Historical 09/01/2011 PracPart Note [facility] Social History Date Tobacco Use Types Packs/Day Years Used Never Assessed Sex Assigned at Date Recorded Not on file Industry Job Start Date Occupation Not on file Not on file Not on file Travel End Travel History Travel Start No recent travel history available. documented as of this encounter Progress Notes * [facility], Historical - 09/01/2011 9:57 AM CDT . :09:57AM .T:MJS RX, PDS/PU (- REQUEST) 09/08/11 - pt called as [facility] states they did not get the RX - I called and ga ve the RX verbally to them - po RX sent 08/31/11 From: Shabnam Vivas (CAROLYN) Originated by: Shabnam Vivas (CAROLYN) Sent: 09/01/2011 at 09:57AM To: Pamela Andrade (SPEEDY) Type: RX Priority: 3 Attachment: INVALID LINK:Jazzy Lopez CAROLYN [id number].tif - [id number]|[id number]\\T:\\ppart\\Fi les\\NWPC160\\OHJG650\\CFJT031\\NMTQ544\\CRKX432\\UZSL902\\PKQT483\\VWTB692\\NWYF551\\LEVJ 001\\GEOK811\\DFGO221\\OMCS074\\JUZU909\\VSFL115\\AZRS662\\IHDV001\\EWTX886\\PRNO327\\LEVT 189\\[id number].tif Subject: MJS RX, PDS/PU (- REQUEST) PHARMACY REFILL REQUEST Pharmacy Name: Pharmacy Phone: Pharmacy Fax: Please refill the following medication for the above named patient Current Medications: Rx: VALIUM 5mg 1TAB q 6-8h prn dizziness The last visit information is Link of original fax request: documented in this encounter Plan of Treatment Not on filedocumented as of this encounter Visit Diagnoses Not on filedocumented in this encounter"
--- OUTSIDE RECORDS SUMMARY | 2019-12-05 23:58 | XMS REPORT | Encounter Summary ---
Author Author [facility] Address Unknown Phone Unavailable Care Team Providers Care Accounting Administrator Name Role Phone PCP Unavailable Encounter Details Care Team Description Date Type Department Avi Wolfe, [address] [place] [address] [phone] 08/10/2010 PracPart Note [facility] ogy [address] [place] [address] Social History Date Tobacco Use Types Packs/Day Years Used Never Assessed Sex Assigned at Date Recorded Not on file Industry Job Start Date Occupation Not on file Not on file Not on file Travel End Travel History Travel Start No recent travel history available. documented as of this encounter Progress Notes * Avi Wolfe DO - 08/10/2010 10:52 AM CDT . :10:52AM .T:MJS Rx From: Madhuri Andrade (GLORY) Originated by: Madhuri Andrade (GLORY) Sent: 08/09/2010 at 03:20PM To: Pamela Andrade (SPEEDY) Type: RX Priority: 3 Attachment: INVALID LINK:Jazzy Ramirez 80.tif - [id number]|[id number]\\M:\\ppart\\Fi les\\NFZP939\\WNFY058\\YUFH660\\NXFT101\\NKKM805\\WTBV221\\FQWW330\\OMHH052\\YXUM738\\LEVJ 001\\YNPO008\\JZDF401\\ZPCR958\\QEDA664\\SMAF704\\WVQW816\\KKYQ458\\PIEY054\\WDVF813\\LEVT 025\\[id number].tif Subject: MJS Rx [id number] faxed refills [place] for [place] PHARMACY REFILL REQUEST Pharmacy Name: Pharmacy Phone: Pharmacy Fax: Please refill the following medication for the above named patient Current Medications: Rx:Topiramate The last visit information is Link of original fax request: documented in this encounter Plan of Treatment Not on filedocumented as of this encounter Visit Diagnoses Not on filedocumented in this encounter"
--- OUTSIDE RECORDS SUMMARY | 2019-12-05 23:58 | XMS REPORT | Encounter Summary ---
Author Author [facility] Organization [facility] Address Unknown Phone Unavailable Care Team Providers Care Cash Control Specialist Name Role Phone PCP Unavailable Encounter Details Care Team Description Date Type Department [facility], Historical 08/19/2011 PracPart Note [facility] Social History Date Tobacco Use Types Packs/Day Years Used Never Assessed Sex Assigned at Date Recorded Not on file Industry Job Start Date Occupation Not on file Not on file Not on file Travel End Travel History Travel Start No recent travel history available. documented as of this encounter Progress Notes * [facility], Historical - 08/19/2011 12:55 PM CDT . :12:55PM .T:MJS RX, PDS/PU (- REQUEST) see previous msg-co From: Shabnam Vivas (CAROLYN) Originated by: Shabnam Vivas (CAROLYN) Sent: 08/19/2011 at 12:55PM To: Pamela Andrade (SPEEDY) Type: RX Priority: 3 Attachment: INVALID LINK:JessicaJazzy [id number].tif - [id number]|[id number]\\T:\\ppart\\Fi les\\AKLU528\\JNAH355\\IHVL632\\UQBF720\\SWOG851\\FHAR584\\WWBV563\\WPDE561\\LMOF378\\LEVJ 001\\KPBK912\\ATGC955\\NKSR931\\SSXT648\\LJOL148\\QWND176\\TVOC918\\VYTQ775\\CAOS619\\LEVT 166\\[id number].tif Subject: MJS RX, PDS/PU (- REQUEST) PHARMACY [...]
--- OUTSIDE RECORDS SUMMARY | 2019-12-05 23:58 | XMS REPORT | Encounter Summary ---
Author Author [facility] Organization [facility] Address Unknown Phone Unavailable Care Team Providers Care Asbestos Hazard Abatement Worker Name Role Phone PCP Unavailable Encounter Details Care Team Description Date Type Department Avi Wolfe DO [address] [facility] [address] [place] [address] [phone] 05/23/2011 Hist-Visit [facility]IST CL[facility] Social History Date Tobacco Use Types Packs/Day Years Used Never Assessed Sex Assigned at Date Recorded Not on file Industry Job Start Date Occupation Not on file Not on file Not on file Travel End Travel History Travel Start No recent travel history available. documented as of this encounter Progress Notes * Avi Wolfe DO - 05/23/2011 8:19 AM COUNTER PERSON . : 08:19am .T: return patient PV:S [facility] Shabnam Dhillon M.D. [address] 20 [facility] Erasmo Dhillon M.D. [address] [place] [address] [place], [place] [address] [place] [address] [place] [address] Kalee Townsend M.D. Brad Wasserman M.D. Nia Moeller M.D. F ax: Avi Wolfe D.O. Lambert King M.D. [facility] Robin Lund M.D., Ph.D. Juliano Wynne M.D. 05/23/11 Robin Concepcion MD [address] [place] [address] [address] [place] [address] Re: Jazzy Lopez : [address] [...] pain. She is supposed to see a biomaterials engineer in the near future. She takes oxycodone [...] # SIGNED BY Avi Wolfe DO (JYOTHI) 05/31/2011 06:23PM TER PERSON documented in this encounter Plan of Treatment Not on filedocumented as of this encounter Visit Diagnoses Not on filedocumented in this encounter
--- OUTSIDE RECORDS SUMMARY | 2019-12-05 23:58 | XMS REPORT | Encounter Summary ---
Author Author [facility] Organization [facility] Address Unknown Phone Unavailable Care Team Providers Care Washing Tub Operator Name Role Phone PCP Unavailable Encounter Details Care Team Description Date Type Department [facility], Historical 03/07/2011 PracPart Note [facility] Social History [...] [facility] - 03/07/2011 3:00 PM CDT . :03:00PM .T:MJS RX zetafaxed rx-co From: Cha Byrd (OBINNA) Originated by: Cha Byrd (OBINNA) Sent: 011 at 03:00PM To: Pamela Andrade ([place]) Type: RX Priority: 3 Attachment: INVALID LINK:Jazzy Lopez [id number].tif - [id number].tif|[id number]\\T:\\ppart\\Fi les\\VJAZ461\\BIXQ685\\HSHP598\\VPJR289\\MCML038\\GSKT635\\AHRC837\\SHUH930\\HGVR478\\LEVJ 001\\ZLCC282\\DMAY137\\SHRE075\\PRMA490\\DMGD618\\EVKK989\\BCRP284\\SNUP338\\CPEW268\\LEVT 368\\[id number].tif Subject: MJS RX PHARMACY REFILL REQUEST Pharmacy [...]
--- OUTSIDE RECORDS SUMMARY | 2019-12-05 23:58 | XMS REPORT | Encounter Summary ---
Author Author [facility] Address Unknown Phone Unavailable Care Team Providers Care Liquid Fertilizer Servicer Name Role Phone PCP Unavailable Encounter Details Care Team Description Date Type Department Avi Wolfe DO [address] [facility] [address] [place] [address] [phone] 09/20/2010 Hist-Visit [facility]IST [facility] Social History Date Tobacco Use Types Packs/Day Years Used Never Assessed Sex Assigned at Date Recorded Not on file Industry Job Start Date Occupation Not on file Not on file Not on file Travel End Travel History Travel Start No recent travel history available. documented as of this encounter Progress Notes * Avi Wolfe DO - 09/20/2010 10:39 AM CDT . : 10:39am .T: Return patient PV:S [facility], [facility] Shabnam Dhillon M.D. [address] [facility] Erasmo Dhillon M.D. [address] [place] [address] [place], [place] [address] [place] [address] [place] [address] Kalee Townsend M.D. Brad Wasserman M.D. Nia Moeller M.D. F ax: Avi Wolfe D.O. Lambert King M.D. [facility] Robin Lund M.D., Ph.D. Juliano Wynne M.D. 09/20/10 Zach Concepcion MD [address] [facility] [id number] Re: Jazzy Ramirez : [address] Concepcion: I saw Jazzy on September 20. I saw her on July 27 regarding problematic migraines. Triggers include stress. I increased topiramate to 100 mg bid, which she is to lerating well. She has only had one migraine since last seen which sumatriptan 100 mg aborted. She uses a mouthguard for TMJ, but still has jaw pain when chewi ng. Her main problem is ongoing dizziness/vertigo that comes and goes. It is n ot triggered by any movements or positions. Bonine and transderm scopolamine pa tches were ineffective. She has similar feelings of dizziness with her migraine s. She has no associated nausea, aural fullness, tinnitus, or hearing loss. Ivis shane rarely has some mild low grad non-disabling headaches, which are usually relie tamera with OTC ibuprofen. Records from Avi Ortiz M.D. of ENT were not availa ble to me. I referred her to Neeraj [place], vestibular oral surgery technician, and reviewe d his records. He did not feel that her problems were vestibular. On exam, she is alert with normal affect. She weighed 197-pounds. BP was 128/8 8 with pulse of 72 per minute. Scalp was non-tender. Cervical ROM was normal w ithout tenderness. Extraocular movements were intact without nystagmus. Streng th was normal. Rapid alternating movements and fine finger movements were intac t. Finger to nose and heel to mata testing was intact. Gait was normal. Romber g was negative. Tandem was normal. She had left TMJ tenderness with jaw clicki ng. With jaw opening, her jaw deviated to the left. It is my impression her migraines are doing well. I suspect that she had migrai ne-associated dizziness. I am prescribing diazepam 5 mg tid prn #30 for dizzine ss. I discussed potential side effects including increasing sleepiness. I rec ommended she try to get records from Dr. Ortiz for my review. I also recommende d she see a dentist who specialized in TMJ since TMJ can also be associated with dizziness. I plan on seeing her in followup in the next three months, or earlier if further problems develop. Sincerely yours, Lyndon Cha. JYOTHI/marcia # SIGNED BY Avi Wolfe DO (JYOTHI) 09/22/2010 12:28PM documented in this encounter Plan of Treatment Not on filedocumented as of this encounter Visit Diagnoses Not on filedocumented in this encounter
--- OUTSIDE RECORDS SUMMARY | 2019-12-05 23:58 | XMS REPORT | Encounter Summary ---
Author Author [facility] Address Unknown Phone Unavailable Care Team Providers Care Market Reporter Name Role Phone PCP Unavailable Encounter Details Care Team Description Date Type Department [facility], Historical 08/29/2011 PracPart Note [facility] Social History Date Tobacco Use Types Packs/Day Years Used Never Assessed Sex Assigned at Date Recorded Not on file Industry Job Start Date Occupation Not on file Not on file Not on file Travel End Travel History Travel Start No recent travel history available. documented as of this encounter Progress Notes * [facility], Historical - 08/29/2011 3:36 PM CDT . :03:36PM .T:MJS RX, PDS/PU zetafaxed - po From: Shabnam Vivas (CAROLYN) Originated by: Shabnam Vivas (CAROLYN) Sent: 08/29/2011 at 03:36PM To: Pamela Andrade (SPEEDY) Type: RX Priority: 3 Attachment: INVALID LINK:Eliufermin Jazzy KH [id number] - [id number]|[id number]:\\ppart\\Fi les\\[id number]\\[id number]\\[id number]\\[id number]\\[id number]\\[id number]\\[id number]\\[id number]\\[id number]\\LEVJ 001\\[id number]\\[id number]\\[id number]\\[id number]\\[id number]\\[id number]\\[id number]\\[id number]\\[id number]\\[id number] [id number] Subject: MJS RX, PDS/PU PHARMACY REFILL REQUEST Pharmacy Name: Pharmacy [...]
--- OUTSIDE RECORDS SUMMARY | 2019-12-05 23:59 | XMS REPORT | Encounter Summary ---
Author Author [facility] Address Unknown Phone Unavailable Care Team Providers Care Corncob Pipes Assembler Name Role Phone PCP Unavailable Encounter Details Care Team Description Date Type Department Avi Wolfe DO [address] [facility] [address] [place] [address] [phone] 11/03/2009 Hist-Visit [facility] Social History Date Tobacco Use Types Packs/Day Years Used Never Assessed Sex Assigned at Date Recorded Not on file Industry Job Start Date Occupation Not on file Not on file Not on file Travel End Travel History Travel Start No recent travel history available. documented as of this encounter Progress Notes * Avi Wolfe DO - 11/03/2009 11:56 AM CDT . : 11:56am .T: New patient PV:S [facility] [place], [facility] Shabnam Dhillon M.D. [address] [facility] Erasmo Dhillon M.D[address] Rad[place] [address] [place], [place] [address] [address] [place] [address] [place] [address] Kalee Townsend M.D. Lubna Bourgeois D.O. Debbie Henry M.D. Nia Moeller M.D. F ax: Avi Wolfe D.O. Lambert King M.D. [facility] Robin Lund M.D., Ph.D. Juliano Wynne M.D. 11/03/09 Rosa Snyder MD [address] [facility] [address] Re: Jazzy Ramirez : [address] Snyder: I saw Mrs. Ramirez for a neurologic evaluation on November 03 at your kind request. She is a 29-year-old right-handed woman referred for evaluation of narcolepsy/c ataplexy. Since May of this year, she has had daytime sleepiness. If she i s watching t.v. or bored, she can sleep suddenly. She has no true sleep attacks . She denies any cataplectic type events. She denies any sleep paralysis or an y symptoms suggestive of hypnagogic hallucinations. She is currently , but when she was , her did not notice any unusual behavior in the middle of the night. She saw Briseida Moseley D.O. of Neurology who ordered a s leep study. Ritalin was ineffective and Adderall helped for daytime sleepiness, but caused severe insomnia. Xyrem was ordered, but she did not receive the medication as of yet. Since she was 05/15, she has had "blackout episodes" lasting that last anywhere from 2 min utes to 20 minutes in duration. Preceding the episodes recently, she has shortn ess of breath and sometimes chest pain along with dizziness and feeling anxious and lightheaded. Her episodes are associated with loss of consciousness. Witne sses have not noted any seizure activity. She has had no injury. She has no po stictal state, incontinence, or tongue biting. She reports she had an EEG when she was younger that showed "silent seizures". She has never been on antiepilep tic meds. MRIof the head with and without contrast on October 14 was normal except for evidence suggestive of bilateral mastoiditis. She was in the E.R. on at [place] due to recurrent "passing out" episodes. CMP was normal exce pt for slightly elevated protein of 8.4, normal CBC. TSH on June 10 was 1.48 . She has been on fluoxetine 40 mg daily for the last two months and the freque ncy of her episodes have been reduced to about 2. Since May of this year, s he has had intermittent headaches, and the last two months, they have been more frequent, almost daily. On a scale of 1 to 10, they average about 9. She descri bes an intense pressure discomfort in the bitemporal areas associated with photo phobia and sonophobia. She has no nausea, blurred vision, or dizziness. She pr efers to lie down for relief. In the past, ibuprofen used to help, but is no lo nger helpful. Excedrin has been ineffective. She has never been on triptan medi cations. The last one month, she has been placed on topiramate 25 m q hs by Dr. Moseley for migraines, which has not helped. There are no triggers, prodrome, or aura. She has no known allergies. Medications include ibuprofen 200 mg prn, topiramate 25 mg q hs, BuSpar 15 mg bi d, Estradiol, and fluoxetine 40 mg daily. Past medical history is remarkable for depression/anxiety. She has been on vari ous antidepressants in the past. She has a history of endometriosis status post hysterectomy in 2007, and three C-sections. Complete review of systems per patient questionnaire, which I reviewed. The las t one week, she has had intermittent non-painful twitching involving her left th umb. She had no associated pain or weakness. Social History: She is with three children. She smokes a pack of cig arettes per day. She does not drink or involve in illicit drugs. She is applyi ng for disability. She has about four caffeinated beverages per day. Family history is remarkable for a maternal great-aunt with epilepsy and her renetta mad[place] grandfather had a stroke. On exam, she is a pleasant woman, alert, with normal affect, in no distress. Ivis shane weighed 190-pounds. BP was 110/80 with pulse of 92 per minute. She had bifro ntal scalp tenderness. Speech and language function was intact. She was orient ed X3. Cranial nerve testing II-XII was intact including visual wynne and fund i. There was no arm drift. Rapid alternating movements, finger to nose, and he el to mata testing were intact. Strength, bulk, and tone were normal throughout . Deep tendon reflexes were 2+. Plantar responses were flexor. Sensory testin g was normal to light touch and pinprick. There was no extinction to DSS. I di d not notice any involuntary movements. Gait was normal. Impression: 1. Daytime sleepiness on he basis of possible idiopathic daytime hypersomnolenc e. Her symptoms do not sound like cataplexy/narcolepsy. 2. Migrainous headaches. 3. Recurrent episodes of syncope, possibly psychogenic, associated with anxiety . Rule out seizures. I am requesting records from Dr. Moseley. She is supposed to get the sleep study for my review. For headaches, I am increasing her topiramate by 25 mg weekly up to 100 mg q hs, writing a one month supply X5. She was instructed to keep a h eadache log and reduce her caffeine intake as much as possible. I recommended s he not drive until we have a more definitive diagnosis. I am ordering an EEG. I plan on seeing her in followup in the next six weeks, or earlier if further pr oblems develop. Sincerely yours, Lyndon Cha. JYOTHI/marcia # SIGNED BY Avi Wolfe DO (JYOTHI) 11/05/2009 05:14PM documented in this encounter Plan of Treatment Not on filedocumented as of this encounter Visit Diagnoses Not on filedocumented in this encounter
--- OUTSIDE RECORDS SUMMARY | 2019-12-05 23:59 | XMS REPORT | Encounter Summary ---
Author Author [facility] Organization [facility] Address Unknown Phone Unavailable Care Team Providers Care Ethanol Operator Name Role Phone [place] Chavez MD Unavailable Gurinder Antunez MD Unavailable Dwayne Davidson MD Unavailable Gertrude Lam NP PCP Encounter Details Care Team Description Date Type Department 11/29/2019 Travel Social History Date Tobacco Use Types Packs/Day Years Used Current Every Day Smoker Cigarettes 1 10 Smokeless Tobacco: Never Used Drinks/Week oz/Week Comments Alcohol Use less than once a mon Yes Sex Assigned at Date Recorded Female 10/28/2019 1:43 PM CDT Industry Job Start Date Occupation Not on file Not on file Not on file Travel End Travel History Travel Start No recent travel history available. Date Recorded COVID-19 Exposure Response 11/29/2019 8:16 AM CDT In the last month, have you been in contact with No / Unsure someone who was confirmed or suspected to have Coronavirus / COVID-19? documented as of this encounter Functional Status [...]
--- OUTSIDE RECORDS SUMMARY | 2019-12-05 23:59 | XMS REPORT | Encounter Summary ---
Author Author [facility] [place] Address Unknown Phone Unavailable Care Team Providers Care Mechanical Equipment Sales Engineer Name Role Phone PCP Unavailable Encounter Details Care Team Description Date Type Department Erasmo Dhillon MD No Forwarding Address 05/03/2010 PracPart Note [facility] ogy [address] [place] [address] Social History Date Tobacco Use Types Packs/Day Years Used Never Assessed Sex Assigned at Date Recorded Not on file Industry Job Start Date Occupation Not on file Not on file Not on file Travel End Travel History Travel Start No recent travel history available. documented as of this encounter Progress Notes * Erasmo Dhillon MD - 05/03/2010 10:34 AM RETAIL SELLING SPECIALIST . : 10:34am .T: pharmacy call 05/04/10- resent rxs for topamax-co [facility] called to verify patient's current dose on generic Topamax-CO documented in this encounter Plan of Treatment Not on filedocumented as of this encounter Visit Diagnoses Not on filedocumented in this encounter
--- OUTSIDE RECORDS SUMMARY | 2019-12-05 23:59 | XMS REPORT | Encounter Summary ---
Author Author [facility] Address Unknown Phone Unavailable Care Team Providers Care Spooler Rubber Strand Name Role Phone PCP Unavailable Encounter Details Care Team Description Date Type Department Avi Wolfe DO [address] [facility] [address] [place] [address] [phone] 02/22/2010 Hist-Visit [facility]IST [facility] Social History Date Tobacco Use Types Packs/Day Years Used Never Assessed Sex Assigned at Date Recorded Not on file Industry Job Start Date Occupation Not on file Not on file Not on file Travel End Travel History Travel Start No recent travel history available. documented as of this encounter Progress Notes * Avi Wolfe DO - 02/22/2010 2:30 PM CDT . : 02:30pm .T: Return patient PV:S [facility] [place], [facility] Shabnam Dhillon M.D. [address] 20 [facility] Erasmo Dhillon M.D. [address] [place] [address] [place], [place] [address] [address] [place] [address] [place] [address] Kalee Townsend M.D. Brad Wasserman M.D. Nia Moeller M.D. F ax: Avi Wolfe D.O. Lambert King M.D. [facility] Robin Lund M.D., Ph.D. Juliano Wynne M.D. 02/22/10 Zach Concepcion MD [address] [place] [id number] Re: Jazzy Ramirez : [address] Concepcion: I saw Jazzy on February 22. I saw her on December 17 regarding migrainous headach es and idiopathic daytime hypersomnolence. TSH was 2.53. Her migraines have imp roved tremendously since topiramate was increased to 50 mg q am and 100 mg q hs, which she is tolerating well. Relpax helped but was not authorized by her insu ronda. Instead, she has been taking sumatriptan 100 mg po, which has helped, ex cept this past weekend when she had a severe migraine. Initial dose helped but when she re-dosed, the headache came back and was ineffective. She had to go to the local E.R. and was given morphine sulfate and her headache resolved. There are no triggers. She still has daytime sleepiness. Nuvigil caused some irrita bility. There are no problems with her mood. Her other meds remain the same. She has no recurrent syncope. On exam, she is alert with normal affect. Speech and gait were normal. Scalp w as non-tender. Extraocular movements were intact without nystagmus. Fundi were normal. BP was 122/80 with pulse of 84 per minute. She weighed 204-pounds. Her migraines have improved. I am continuing her on her current medication aaliyah men. I am referring her to Tahmina Schwarz M.D., sleep specialist, for idiopathic hypersomnia. I plan on seeing her in the next three months, or earlier if further problems de velop. Sincerely yours, Lyndon Cha. JYOTHI/marcia # SIGNED BY Avi Wolfe DO (JYOTHI) 02/23/2010 06:14PM documented in this encounter Plan of Treatment Not on filedocumented as of this encounter Visit Diagnoses Not on filedocumented in this encounter
--- OUTSIDE RECORDS SUMMARY | 2019-12-05 23:59 | XMS REPORT | Encounter Summary ---
Author Author [facility] Address Unknown Phone Unavailable Care Team Providers Care Content Strategy Lead Name Role Phone PCP Unavailable Encounter Details Care Team Description Date Type Department Avi Wallace, [address] [place] [address] [phone] 11/24/2009 PracPart Note [facility] [address] [place] [address] Social History Date Tobacco Use Types Packs/Day Years Used Never Assessed Sex Assigned at Date Recorded Not on file Industry Job Start Date Occupation Not on file Not on file Not on file Travel End Travel History Travel Start No recent travel history available. documented as of this encounter Progress Notes * Avi Wallace, - 11/24/2009 10:47 AM CDT .D: 10 : 10:47am .T: EEG dated 11-09-09 .PV: JYOTHI Name: JAZZY BARRIENTOS MRN/Unit #: [id number] Date of : 1980 Attending Physician: AVI WALLACE Age: 29Y DATE OF ADMISSION: DATE OF EE11/09/2009. CLINICAL HISTORY: Recurrent syncope, rule out seizures. DESCRIPTION: A standard 17-channel digital EEG recording with EKG recording was performed, using the international 10-20 system, as well as referential and bipolar montages, and was technically satisfactory. Brief wakefulness was recorded and was characterized by intermittent posterior dominant rhythm of 9 hertz activity of moderate amplitude in the posterior head regions. There was attenuation of background to eye opening. The majority of the record consisted of stage one and stage two sleep, with normal sleep features. No focal epileptiform activity was recorded. Hyperventilation over 3 minutes failed to adequately initiate any abnormalities. Photic stimulation was done with bilateral photic evoked responses at higher flash frequencies, which was not associated with photoparoxysmal response. IMPRESSION: This is a normal spontaneous electroencephalographic recording. Avi Wallace DO Dictated by: cc: # SIGNED BY Avi Wallace DO (MJS) 11/24/2009 04:41PM documented in this encounter Plan of Treatment Not on filedocumented as of this encounter Visit Diagnoses Not on filedocumented in this encounter
--- OUTSIDE RECORDS SUMMARY | 2019-12-05 23:59 | XMS REPORT | Encounter Summary ---
Author Author [facility] Organization [facility] Address Unknown Phone Unavailable Care Team Providers Care Director Of Instructional Technology Name Role Phone PCP Unavailable Encounter Details Care Team Description Date Type Department [facility], Historical 02/25/2010 PracPart Note [facility] Social History Date Tobacco Use Types Packs/Day Years Used Never Assessed Sex Assigned at Date Recorded Not on file Industry Job Start Date Occupation Not on file Not on file Not on file Travel End Travel History Travel Start No recent travel history available. documented as of this encounter Progress Notes * [facility], Historical - 02/25/2010 8:36 AM CDT . : 08:36am .T: Records sent to Dr. Schwarz I faxed all records to Dr. Schwarz, [id number] jf documented in this encounter Plan of Treatment Not on filedocumented as of this encounter Visit Diagnoses Not on filedocumented in this encounter
--- OUTSIDE RECORDS SUMMARY | 2019-12-05 23:59 | XMS REPORT | Encounter Summary ---
Author Author [facility] Address Unknown Phone Unavailable Care Team Providers Care Director Epidemiology Name Role Phone PCP Unavailable Encounter Details Care Team Description Date Type Department Avi Wolfe DO [address] [place] [address] [phone] 12/23/2009 PracPart Note [facility] Neurol ogy [address] [place] [address] Social History Date Tobacco Use Types Packs/Day Years Used Never Assessed Sex Assigned at Date Recorded Not on file Industry Job Start Date Occupation Not on file Not on file Not on file Travel End Travel History Travel Start No recent travel history available. documented as of this encounter Progress Notes * Avi Wolfe DO - 12/23/2009 6:27 PM CDT . :06:27PM .T:patient call From: Avi Wolfe (JYOTHI) Originated by: Avi Wolfe (JYOTHI) Sent: 12/23/2009 at 06:27PM To: Bere Andrade (MNAISH) Type: CHART Priority: 3 Subject: patient call Generic Imitrex 100 mg #9 OK.Take at onset of migraine.May repeat after 2 hrs if THORNE returns.No more than 2 per day or 2 days per week.JYOTHI 12/23/09 01/12/10 Phone call from Jazzy stating she was supposed to hear back regarding a different medication other than the Relpax since it was too expensive. We di scussed Dr. Wolfe ordered generic Imitrex and that I would be happy to sen d this prescription to her pharmacy. I verified her pharmacy information and pr escription electronically transmitted. She will call if she has any further qu estions or concerns. Yola grace Original Message: From: MANISH To: JYOTHI Subject: patient call Priority: 3 Date: 12/23/2009 Nurse Note: PO Providers: : Physician Response: Patient Last Visit Next Visit Reason for Call: This 29 yr old female reports by phone that you recently prescribed Relpax but i nsurance will not cover this and it will cost her $240/mo. She would like to kno w if she can try generic Imitrex to see if this works as it was suggested by the pharmacy. Let me know - po 12/17/09 Zach Concepcion MD [address] [place] [address] [id number] Re: Jazzy Ramirez : [address] Concepcion: I saw Jazzy on December 17. I saw her on November 03 regarding daytime sleepiness on the basis of possible idiopathic daytime hypersomnolence, migrainous headaches, and syncope. I arranged an EEG, normal. Sleep study followed by MSLT ordered by Dr. Moseley from July of this year suggested idiopathic hypersomnia. She has had no recurrent syncope. She has ongoing daytime sleepiness. She enmanuel es any mood disturbance. She stopped smoking a few weeks ago. She had recent c olonoscopy and was diagnosed with diverticulosis. She reports that she has prob lems sleeping. She is on escalating doses of topiramate, currently on 100 mg q hs. The frequency of the migraines has been diminished to about one every other day. The intensity on a scale of 1 to 10 is about 9. Ibuprofen 800 mg has been ineffective. She has associated photophobia and sonophobia associated with a pressure discomfort in the bifrontal temporal regions. She never been on a trip boyd. She does not recall having any thyroids checked. She has no other problem s. She has not cut back down on her caffeine usage. On examination, she is alert with normal affect. Speech and gait were normal. Scalp was non-tender. Extraocular movements were intact without nystagmus. She weighed 193-pounds. BP was 110/70 with pulse of 84 per minute. She is having ongoing migrainous headaches. I increased her topiramate to 50 mg q am and 100 mg q hs, writing a one month supply X5. I recommended she keep a headache log and reduce her caffeine intake. I gave her samples of Treximet and Relpax to try for abortive therapy and gave her instructions on how to take thi s. I discussed potential side effects. If either one of these is effective, I plan on writing a script. Otherwise, we will try another triptan. She has idio pathic DRAWER IN hypersomnolence. I am prescribing Nuvigil 150 mg q am #30 X1. I am ordering a TSH. I plan on seeing her in followup in the next two months, or earlier if further p roblems develop. Sincerely yours, Lyndon Cha. JYOTHI/marcia # SIGNED BY Avi Wolfe DO (JYOTHI) 12/22/2009 01:09PM documented in this encounter Plan of Treatment Not on filedocumented as of this encounter Visit Diagnoses Not on filedocumented in this encounter
--- OUTSIDE RECORDS SUMMARY | 2019-12-05 23:59 | XMS REPORT | Encounter Summary ---
Author Author [facility] Organization [facility] Address Unknown Phone Unavailable Care Team Providers Care Rotary Kiln Operator Name Role Phone Norris Chavez MD Unavailable Gurinder Antunez MD Unavailable Dwayne Davidson MD Unavailable Gertrude Lam NP PCP Encounter Details Care Team Description Date Type Department Madhuri Gautam MD [address] [place] [address] 11/30/2019 Orders Only [facility] [address] [place] [address] Social History Date Tobacco Use Types Packs/Day [...]
--- OUTSIDE RECORDS SUMMARY | 2019-12-05 23:59 | XMS REPORT | Encounter Summary ---
Author Author [facility] Organization [facility] Address Unknown Phone Unavailable Care Team Providers Care Gifts Officer Name Role Phone PCP Unavailable Encounter Details Care Team Description Date Type Department [facility] 11[facility]2009 PracPart Note [facility] Social History Date Tobacco Use Types Packs/Day Years Used Never Assessed Sex Assigned at Date Recorded Not on file Industry Job Start Date Occupation Not on file Not on file Not on file Travel End Travel History Travel Start No recent travel history available. documented as of this encounter Progress Notes * [facility] - 11/03/2009 9:41 AM CDT .D: 10 : 09:41am Hypertension: no Hyperlipidemia: yes Maternal grandma, maternal grandpa Coronary heart disease: yes Maternal grandpa Diabetes mellitus: yes Maternal grandma, maternal grandpa, paternal grandma Migraines: no CVD / Stroke: yes Maternal gramdpa Alcoholism: yes Brother, paternal grandpa Epilepsy: yes Maternal great aunt Mental illness: yes Maternal great grandma, maternal great uncle Other: no Cancer - Maternal uncle documented in this encounter Plan of Treatment Not on filedocumented as of this encounter Visit Diagnoses Not on filedocumented in this encounter
--- OUTSIDE RECORDS SUMMARY | 2019-12-05 23:59 | XMS REPORT | Clinical Summary ---
Author Author [facility] Organization [facility] Address Unknown Phone Unavailable Care Team Providers Care Section Laborer Name Role Phone Norris Chavez MD Unavailable SayedGurinder MD Unavailable Dwayne Davidson MD Unavailable Gertrude Lam NP PCP Source Comments Some departments are not documenting in the electronic medical record. If you d o not see the information that you expected, contact Release of Information in Critical access hospital Information Management department at [phone] for further assistan ce in locating additional records.[facility] Allergies Comments Active Allergy Reactions Severity Noted Date Gabapentin DIZZINESS Low 08/04/2016 "lose complete control of arms, legs, head, and cannot speak" per pt Metoclopramide SEE COMMENTS Low 08/20/2014 Medications End Date Status Medication Sig Dispensed Refills Start Date Active diphenhydrAMINE Take 50 mg by 0 (BENADRYL) 25 mg capsule mouth twice daily. Active ethosuximide(+) Take 250 mg 0 (ZARONTIN) 250 mg capsule by mouth at bedtime daily. Active fluoxetine (PROZAC) 40 mg Take 40 mg by 0 10/13 capsule mouth daily. 0 Active ibuprofen (MOTRIN) 800 mg Take 800 mg 0 tablet by mouth 0 three times daily. Active lisinopriL (ZESTRIL) 20 Take 20 mg by 0 mg tablet mouth twice 0 daily. Active ofloxacin (FLOXIN) 0.3 % Place five 10 mL 5 0 otic solution drops in 0 affected ear(s) as directed twice daily. Active estradioL (ESTRACE) 1 mg Take 1 mg by 0 tablet mouth daily. Active omeprazole DR (PRILOSEC) Take 40 mg by 0 40 mg capsule mouth daily before breakfast. Active fluticasone-salmeterol Inhale 1 puff 0 (ADVAIR DISKUS) 250-50 by mouth into mcg/dose inhalation disk the lungs every 12 hours. Active albuterol sulfate (PROAIR Inhale 2 0 HFA) 90 mcg/actuation puffs by aerosol inhaler mouth into the lungs every 6 hours as needed for Wheezing or Shortness of Breath. Shake well before use. Active SUMAtriptan succinate Take 50 mg by 0 (IMITREX) 50 mg tablet mouth as Needed for Migraine symptoms. Dose may be repeated in 2 hours if needed. Max of 2 tablets in 24 hours. Active ondansetron (ZOFRAN ODT) Dissolve 4 mg 0 4 mg rapid dissolve by mouth tablet every 8 hours as needed for Nausea or Vomiting. Place on tongue to disolve. Active ofloxacin (FLOXIN) 0.3 % Place five 10 mL 5 0 otic solution drops in 0 affected ear(s) as directed twice daily. Active traMADoL (ULTRAM) 50 mg Take one 8 tablet 0 tablet tablet by 0 mouth every 6 hours as needed. Active methylPREDNIsolone Take 21 tablet 0 11/30/ 02 (MEDROL DOSEPAK) 4 mg medication as 0 tablet directed on package for 6 days. Take with food. 12/06/2019 Active ketorolac (TORADOL) 10 mg Take one 20 tablet 0 tablet tablet by 0 mouth every 6 hours as needed for Pain for up to 5 days. Take with food. Max of 5 days of treatment. Do not take while taking ibuprofen. 11/22/2019 Discontinued (Removed from P TA Med List) diazepam (VALIUM) 5 mg Take 5 mg by 0 tablet mouth as Needed. dizziness 11/22/2019 Discontinued (Removed from P TA Med List) FLUTICASONE/SALMETEROL Inhale by 0 (ADVAIR DISKUS mouth. IN)Indications: ALSO HAS Indications: ADVAIR INHALER PRN ALSO HAS ADVAIR INHALER PRN 11/22/2019 Discontinued (Removed from P TA Med List) duloxetine DR (CYMBALTA) Take 60 mg by 0 60 mg capsule mouth daily. 11/22/2019 Discontinued (Removed from P TA Med List) amitriptyline (ELAVIL) 10 Take two 60 tablet 0 mg tabletIndications: tablets by 8 neuropathic pain mouth at bedtime daily. 11/22/2019 Discontinued (Removed from P TA Med List) nortriptyline (PAMELOR) Take three 90 capsule 1 25 mg capsule capsules by 9 mouth at bedtime daily. 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 Rectal bleeding 03/07/2012 Overview: New bleeding not associated with rectal pain. Abdominal pain 09/13/2011 Overview: Long standing, for "years", worse befor e BM. Not relieved by BM. Recently constipation has been controlled but th is did not improve the pain. Location: left lower quadrant . History of multiple abdominal surgeries. History of diverticulitis in the past. GET 05/2011: mildly delayed. Colonoscopy and EGD 2011 in [facility]: n ormal. CT abd/pelvis 02/2012: thickining of the ascending colon. Hx o f laparoscopic adhesiolysis with minimal improvement of pain. Hypogastri c nerve block done by Dr Carrington 09/05/12 - complete resolution of abd p ain. Anemia 09/13/2011 Overview: EGD 08/31/11 : normal. Small bowel caps ule - normal. Celiac disease serology negative. Colonoscopy in [facility] 03/2012 : external hemorrhoids. Otherwise, normal and normal TI. EGD : normal. bx neg for celiac ds. No h.pylori. Bx: david esophagitis Constipation 09/13/2011 Overview: Pt reports Improvement on miralax. Las t colonoscopy in 03/2012: normal. Encounters Care Team Description Date Type Specialty Madhuri Gautam MD 11/30/2019 Orders Only [facility] MD Turek, Lisa J PA-C 11/29/2019 Anesthesia Event Jessenia Vela MD TYMPANOPLASTY WITH MASTOIDECTOMY WITH IN TACT/ RECONSTRUCTION CANAL WALL WITHOUT OSSICULAR CHAIN RECONSTRUCTION 11/29/2019 Surgery Jessenia Vela MD Bilateral chronic otitis media 11/29/2019 Hospital Encounter 11/29/2019 Travel Jessenia Vela MD Encounter for screening for other viral diseases 11/27/2019 Nurse Only Urgent Care Jessenia Vela MD Preop examination (Primary Dx); Preop cardiovascular exam 11/22/2019 Ancillary Pre-Admission Testi ng Procedure 11/22/2019 Travel Jessenia Vela MD 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 11/11/2019 Office Visit Otolaryngology Rob Puri AUD Bilateral otitis media, unspecified otit is media type (Primary Dx); Mixed conductive and sensorineural hearing loss, bilateral; Eustachian tube dysfunction, bilateral 11/11/2019 Clinical Otolaryngology Support Jessenia Vela MD Bilateral chronic otitis media (Primary Dx); Encounter for screening for other viral diseases 11/11/2019 Prep for Case Otolaryngology 11/11/2019 Travel from Last 3 Months Family History Medical [...] Used Tobacco Cessation: Ready to Quit: Yes; C ounseling Given: Yes Drinks/Week oz/Week Comments Alcohol Use less than once a mon th Yes Sex Assigned at Date Recorded Female [...] or suspected to have Coronavirus / COVID-19? Last Filed Vital Signs Reading Time Taken Comments Vital Sign 132/78 11/29/2019 6:30 PM CDT Blood Pressure 91 11/29/2019 6:30 PM CDT Pulse 36.9 C (98.4 F) 11/29/2019 6:30 PM CDT Temperature 22 05/17/2018 10:15 AM ETL ARCHITECT Respiratory Rate 96% 11/29/2019 6:30 PM CDT Oxygen Saturation - - Inhaled Oxygen Concentration 103.4 kg (228 lb) 11/29/2019 8:00 AM CDT Weight 152.4 cm (5') 11/29/2019 8:00 AM CDT Height 44.53 11/29/2019 8:00 AM CDT Body Mass Index Plan of Treatment Health Maintenance Due Date Last Done Comments HIV SCREENING 09/22/1994 DTAP/TDAP VACCINES (1 - 09/22/1997 Tdap) HEPATITIS C SCREENING 09/22/1997 PHYSICAL (COMPREHENSIVE) 09/22/1997 EXAM CERVICAL CANCER SCREENING 09/22/2000 BREAST CANCER SCREENING 2019 INFLUENZA VACCINE 02/13/2020 Implants Device Identifier Shelf Expiration Date Model / Serial / L ot Implanted Type Area Manufactur er 03/31/2027 [id number] / [id number] / [id number] Sheeting Silastic 2x2in Thk.04in Left: Ear MEDT RONIC Silicone Trimmable - [id number] INC Implanted: Qty: 1 on 11/29/2019 by Jessenia Vela MD at [facility] 05/28/2029 [id number] / [id number] / [id number] Tube Ventilation T 4.8mm 1.32mm Left: Ear OLYMP US Renner Flange Modify - [id number] VONDA Implanted: Qty: 1 on 11/29/2019 by INC Jessenia Vela MD at [facility] Procedures Comments Procedure Name Priority Date/Time Associated Diag nosis HC LEV III SRG PTH, GROSS Routine 11/29/2019 Bila teral chronic otitis & MICRO 2:25 PM CDT media TYMPANOPLASTY WITH 11/29/2019 Bilateral chronic otitis MASTOIDECTOMY WITH 1:30 PM CDT media INTACT/ RECONSTRUCTION CANAL WALL WITHOUT OSSICULAR CHAIN RECONSTRUCTION COVID-19 (SARS-COV-2) PCR Routine 11/27/2019 Enco unter for screening 12:51 PM CDT for other viral diseases HC BASIC METABOLIC PANEL Routine 11/22/2019 Preop examination 10:55 AM CDT HC CBC,AUTOMATED Routine 11/22/2019 Preop examina tion 10:55 AM CDT ECG-SCAN 11/22/2019 12:00 AM CDT AUDITORY FUNCTION TESTS Routine 11/11/2019 Bilate ral otitis media, unspecified otitis media type from Last 3 Months Results * SURGICAL PATHOLOGY (11/29/2019 2:25 PM CDT) PATHOLOGY [facility] [email or web address] Department of Pathology and Laboratory Medicine [address] [place] [id number] Surgical Pathology Office: [phone] SURGICAL PATHOLOGY REPORT NAME: JAZZY LOPEZ SURG PATH #: [id number] MR #: [id number] SPECIMEN CLASS: [facility] BILLING #: [id number] ALT ID #: LOCATION: [facility] DATE OF PROCEDURE: 11/29/2019 AGE: 39 SEX: F DATE RECEIVED: 12/02/2019 : 1980 TIME RECEIVED: 08:22 PHYSICIAN: JESSENIA VELA MD DATE OF REPORT: 12/03/2019 COPY TO: DATE OF PRINTIN12/03/2019 ############################## ############################## ############ Final Diagnosis: A. Middle ear & mastoid, "left mastoid tissue", excision: Granulation tissue, cholesterol clefts, chronic inflammation and calcifications Attestation: By this signature, I attest that I have personally formulated the final interpretation expressed in this report and that the above diagnosis is based upon my examination of the slides and/or other material indicated in this report. +++ +++ bm/12/02/2019 ############################## ############################## ############ Material Received: A: left mastoid tissue History: 39-year-old female with a history of bilateral chronic otitis media. Gross Description: A. Fixative: Formalin Labeled: "Left mastoid tissue" Dimensions: 2.0 x 1.2 x 0.5 cm aggregate of boyd-pink tissue Decalcification solution used: No Cassette A1- Specimen submitted entirely. ([facility]) [facility]/12/02/2019 Specimen Tissue - Ear Performing Organization Address City/[facility] Ph one Number MAIN LAB [address] [place] [address] * COVID-19 (SARS-COV-2) PCR (11/27/2019 12:51 PM CDT) COVID-19 NASOPHARYNGEAL SWAB [facility] (SARS-CoV-2) PCR Source COVID-19 NOT DETECTED DN-NOT DETECTED [facility] (SARS-CoV-2) Comment: PCR This assay is designed to detect the N and/or RdRp genes of SARS-CoV-2 using nucleic acid amplification. A "Not Detected" result does not preclude the possibility of SARS-CoV-2 infection since the adequacy of sample collection and/or low viral burden may result in the presence of viral nucleic acids below the analytical sensitivity of this test method. Test results should be used along with other clinical and laboratory data in making the diagnosis. Test parameters have not been validated for screening in asymptomatic patients. This test is authorized for use under the FDA Emergency Use Authorization and performance characteristics have been verified by the [facility]. Fact sheet for providers: https://www.fda.gov/media/1362 56/download Fact sheet for patients: https://www.fda.gov/media/5401 57/download Specimen Nasopharyngeal Swab Performing Organization Address City[facility] Ph one Number MA[facility] LAB [address] [place] [address] * CBC (11/22/2019 10:55 AM CDT) White Blood 15.6 (H) 4.5 - 11.0 K/UL MAIN LAB Cells RBC 4.05 4.0 - 5.0 M/UL MAIN LAB Hemoglobin 12.1 12.0 - 15.0 GM/DL [facility] MAIN LAB Hematocrit 35.7 (L) 36 - 45 % [facility] MA[facility] MCV 88.0 80 - 100 FL [facility] MA[facility] MCH 29.7 26 - 34 PG [facility] MCHC 33.8 32.0 - 36.0 G/DL [facility] RDW 14.3 11 - 15 % [facility] Platelet Count 444 (H) 150 - 400 K/UL [facility] MPV 8.3 7 - 11 FL [facility] MAIN [facility] Specimen Blood Performing Organization Address [facility] one Number [facility] MAIN LAB [address] [place] [address] * BASIC METABOLIC PANEL (11/22/2019 10:55 AM CDT) Sodium 138 137 - 147 MMOL/L [facility] MAIN [facility] Potassium 3.5 3.5 - 5.1 MMOL/L [facility] MAIN [facility] Chloride 103 98 - 110 MMOL/L [facility] MA[facility] CO2 26 21 - 30 MMOL/L [facility] Anion Gap 9 3 - 12 [facility] Glucose 82 70 - 100 MG/DL [facility] Blood Urea 12 7 - 25 MG/DL [facility] Nitrogen Creatinine 0.65 0.4 - 1.00 MG/DL [facility] Calcium 9.5 8.5 - 10.6 MG/DL [facility]IN [facility] eGFR Non >60 >60 mL/min [facility]IN [facility] Comment: [place] The eGFR is not validated f or use in drug dosing adjustments. Continue to use estimated creatinine clearance per dosing reference text. Please contact the Clinical Pharmacist for questions. eGFR >60 >60 mL/min [facility] MAIN LAB [place]e Comment: The eGFR is not validated for use in drug dosing adjustments. Continue to use estimated creatinine clearance per dosing reference text. Please contact the Clinical Pharmacist for questions. Specimen Blood Performing Organization Address [facility] one Number [facility] MAIN LAB [address] [place] [address] * ECG-SCAN (11/22/2019 12:00 AM CDT) Narrative Performed At This result has an attachment that is n ot available. Ordered by an unspecified provider. * AUDITORY FUNCTION TESTS (11/11/2019) Narrative Performed At This result has an attachment that is n ot available. Performing Organization Address [facility] Ph one Number IN CLINIC from Last 3 Months Insurance Type Payer Benefit Subscriber ID Effective Phone Address Plan / Dates Group Medicaid [place] [employer] xxxxxxxxxxx [id number] [facility] [phone] Advance Directives Patient Display Associate Explanation Type Date Recorded Advance Directive/DPOA
--- OUTSIDE RECORDS SUMMARY | 2019-12-05 23:59 | XMS REPORT | Encounter Summary ---
Author Author [facility] Organization [facility] Address Unknown Phone Unavailable Care Team Providers Care Director Of Knowledge Management Name Role Phone PCP Unavailable Encounter Details Care Team Description Date Type Department [facility], Historical 11/03/2009 PracPart Note [facility] HIST [...] Progress Notes * [facility], Historical - 11/03/2009 9:40 AM CDT .D: 10 : 09:40am Marital Status: Children: 2 males 12, 6 - 1 female 8 Amount of Caffeine: Coffee: Tea: Soda: 3-4 12 oz cans Do you smoke: cigarettes, cigars, pipe, etc: yes How often: 1 pack a day Alcohol: no How often: Occupation: Unable to work applying for disability Retired: no Are you Claustrophobic? no documented in this encounter Plan of Treatment Not on filedocumented as of this encounter Visit Diagnoses Not on filedocumented in this encounter
--- OUTSIDE RECORDS SUMMARY | 2019-12-05 23:59 | XMS REPORT | Encounter Summary ---
Author Author [facility] Organization [facility] Address Unknown Phone Unavailable Care Team Providers Care Contractor [employer]room[employer] Threshing Name Role Phone Norris Chavez MD Unavailable Gurinder Antunez MD Unavailable Dwayne Davidson MD Unavailable Gertrude Lam NP PCP Reason for Visit * Auth/Cert Referred By Contact Referred To Contact Status Reason Specialty Diagnoses / Procedures Diagnoses Bilateral chronic otitis media Bilateral chronic otitis media [H66.93] P rocedures NV TMPP MASTOIDECT NTC/RCNSTED WALL W/O OCR NV TMPP MASTOIDECT NTC/RCNSTED WALL W/O OCR TYMPANOPLASTY WITH MASTOIDECTOMY WITH INTACT/ RECONSTRUCTION CANAL WALL WITHOUT OSSICULAR CHAIN RECONSTRUCTION Encounter Details Care Team Description Date Type Department Jessenia Vela MD [address] [facility] [address] [id number] TYMPANOPLASTY WITH MASTOIDECTOMY WITH IN TACT/ RECONSTRUCTION CANAL WALL WITHOUT OSSICULAR CHAIN RECONSTRUCTION 11/29/2019 Surgery [facility] [place] [address] Social History Date Tobacco Use Types Packs/Day [...] / COVID-19? documented as of this encounter Last Filed Vital Signs Reading Time Taken Comments Vital Sign 132/78 11/29/2019 6:30 PM CDT Blood Pressure 91 11/29/2019 6:30 PM CDT Pulse 36.9 C (98.4 F) 11/29/2019 6:30 PM CDT Temperature - - Respiratory Rate 96% 11/29/2019 6:30 PM CDT Oxygen Saturation - - Inhaled Oxygen Concentration 103.4 kg (228 lb) 11/29/2019 8:00 AM CDT Weight 152.4 cm (5') 11/29/2019 8:00 AM CDT Height 44.53 11/29/2019 8:00 AM CDT Body Mass Index documented in this encounter Functional Status Date of [...] impairment: No documented as of this encounter Discharge Instructions * Patient Instructions* Fidencio Whittington RN - 11/29/2019 5:17 PM CDT Anesthesia: General Anesthesia You are watched continuously during your procedure by your anesthesia provider. Youre due to have surgery. During surgery, youll be given medicine called anesthesia or anesthetic. This will keep you comfortable and pain-free. Your [facility] providerwill use general anesthesia . What is general anesthesia? General anesthesia puts you into a state like deep sleep. It goes into the blood stream (IV anesthetics), into the lungs (gas anesthetics), or both. You feel not sherman during the procedure. You will not remember it. During the procedure, the a [facility] provider monitors you continuously. He or she checks your heart rate a nd rhythm, blood pressure, breathing, and blood oxygen. IV anesthetics. IV anesthetics are given through an IV line in your arm. They re often given first. This is so you are asleep before a gas anesthetic is st arted. Some kinds of IV anesthetics relieve pain. Others relax you. Your doctor will decide which kind is best in your case. Gas anesthetics. Gas anesthetics are breathed into the lungs. They are often used to keep you asleep. They can be given through a face mask or a tube placed in your larynx or trachea (breathing tube) . ? If you have a face mask, your anesthesia provider will most likely place it ov er your nose and mouth while youre still awake. Youll breathe oxygen throu gh the mask as your IV anesthetic is started. Gas anesthetic may be added throug h the mask. ? If you have atube in the larynx or trachea,it will be inserted into your t hroat after youre asleep. Anesthesia tools and medicines You will likely have: IV anesthetics. These are put into an IV line into your bloodstream. Gas anesthetics.You breathe theseanestheticsinto your lungs, where they pass into your bloodstream. Pulse oximeter. This is a small clip that is attached tothe end of your fin rachael. This measures your blood oxygen level. Electrocardiography leads (electrodes).These are small sticky pads that are placedon your chest. They record your heart rate and rhythm. Blood pressure cuff. This reads your blood pressure. Risks and possible complications General anesthesia has some risks. These include: Breathing problems Nausea and vomiting Sore throat or hoarseness (usually temporary) Allergic reaction to the anesthetic Irregular heartbeat (rare) Cardiac arrest (rare) Anesthesia safety Follow all instructions you are given for how long not to eat or drink before your procedure. Be sure your doctor knows what medicines and drugsyou take. This includes o baa-kms-cxtrviu medicines, herbs, supplements, alcohol or other drugs. You will be asked when those were last taken. Have an adult family member or friend drive you home after the procedure. For the first 24 hours after your surgery: ? Don't drive or use heavy equipment. ? Don't make important decisions or sign legal documents. If important decisions or signing legal documents is necessary during the first 24 hours after surgery , have a trusted family member or spouse act on your behalf. ? Don't drink alcohol. ? Havea responsible adultstay with you.He or shecan watch for problems a nd help keep you safe. [employer] reviewed this educational content on 02/12/201919999092-8191 [employer]. [address] [place] [address], [place], [place] [address]. All rights reserved. This information is not intended as a substitute for pro fessional medical care. Always follow your healthcare professional's instruction s. documented in this encounter Medications at Time of Discharge Start Date End Date Medication Sig Dispensed Refills albuterol sulfate (PROAIR Inhale 2 0 HFA) 90 mcg/actuation puffs by aerosol inhaler mouth into the lungs every 6 hours as needed for Wheezing or Shortness of Breath. Shake well before use. diphenhydrAMINE Take 50 mg by 0 (BENADRYL) 25 mg capsule mouth twice daily. estradioL (ESTRACE) 1 mg Take 1 mg by 0 tablet mouth daily. ethosuximide(+) Take 250 mg 0 (ZARONTIN) 250 mg capsule by mouth at bedtime daily. 10/25/2019 fluoxetine (PROZAC) 40 mg Take 40 mg by 0 capsule mouth daily. fluticasone-salmeterol Inhale 1 puff 0 (ADVAIR DISKUS) 250-50 by mouth into mcg/dose inhalation disk the lungs every 12 hours. 10/22/2019 ibuprofen (MOTRIN) 800 mg Take 800 mg 0 tablet by mouth three times daily. 12/01/2019 12/06/2019 ketorolac (TORADOL) 10 mg Take one 20 tablet 0 tablet tablet by mouth every 6 hours as needed for Pain for up to 5 days. Take with food. Max of 5 days of treatment. Do not take while taking ibuprofen. 11/04/2019 lisinopriL (ZESTRIL) 20 Take 20 mg by 0 mg tablet mouth twice daily. 12/01/2019 methylPREDNIsolone Take 21 tablet 0 (MEDROL DOSEPAK) 4 mg medication as tablet directed on package for 6 days. Take with food. 11/29/2019 ofloxacin (FLOXIN) 0.3 % Place five 10 mL 5 otic solution drops in affected ear(s) as directed twice daily. 11/11/2019 ofloxacin (FLOXIN) 0.3 % Place five 10 mL 5 otic solution drops in affected ear(s) as directed twice daily. omeprazole DR (PRILOSEC) Take 40 mg by 0 40 mg capsule mouth daily before breakfast. ondansetron (ZOFRAN ODT) Dissolve 4 mg 0 4 mg rapid dissolve by mouth tablet every 8 hours as needed for Nausea or Vomiting. Place on tongue to disolve. SUMAtriptan succinate Take 50 mg by 0 (IMITREX) 50 mg tablet mouth as Needed for Migraine symptoms. Dose may be repeated in 2 hours if needed. Max of 2 tablets in 24 hours. 11/29/2019 traMADoL (ULTRAM) 50 mg Take one 8 tablet 0 tablet tablet by mouth every 6 hours as needed. documented as of this encounter Progress Notes * Fidencio Whittington RN - 11/29/2019 5:31 PM CDT Pt up in chair to help with oxygenation and waking up pt doing IS see flowsheet Dr Holliday at bedside, breathing tx ordered. * Ana Pacheco RN - 11/18/2019 11:10 AM CDT PAC Phone Triage Note: PAC clinic visit scheduled for 11/22/19 @ 1100. Patient hx includes COPD, seizure s, anemia. Patient was agreeable to this visit. Location and contact information provided. Patient was advised to stop vitamins herbals and supplements 14 days prior to the procedure and avoid NSAIDS 7 days prior. She was advised of the most current visitor policy as well as temp check and mas k requirement prior to entrance into the facility. Patient verbalized understan ding of all information. No further questions at this time. documented in this encounter H&P Notes * Madhuri Gautam MD - 11/29/2019 9:12 AM CDT History and Physical Update Note Allergies: Gabapentin and Reglan [metoclopramide] Lab/Radiology/Other Diagnostic Tests: 24-hour labs: No results found for this visit on 11/29/19 (from the past 24 ingrid r(s)). Point of Care Testing: (Last 24 hours): I have examined the patient, and there are no significant changes in their condi tion, from the previous H&P performed on 11/11/2019. Madhuri Gautam MD Pager * Jessenia Vela MD - 11/11/2019 2:00 PM CDT Date of Service: 11/11/2019 Subjective: Juventino Lopez is a 39 y.o. female. History of Present Illness Juventino for bilateral chronic otitis media. She did have a history of a left ty mpanoplasty with mastoidectomy performed about 20 to 21 years ago, possibly at [facility]. Since then, she was doing fine, but over the past year she has had constant ear drainage, she has had tubes placed in her ears multiple times her most recen t set was 6 to 12 ago. She is tried oral antibiotics, eardrops, to no avail. H er left side is worse than her right. Review of Systems Constitutional: Negative. HENT: Positive for ear discharge (bilateral ), ear pain (left) and hearing loss (bilateral ). Eyes: Negative. Respiratory: Negative. Cardiovascular: Negative. Gastrointestinal: Negative. Endocrine: Negative. Genitourinary: Negative. Musculoskeletal: Positive for back pain (lower). Skin: Negative. Allergic/Immunologic: Negative. Neurological: Positive for dizziness, seizures, light-headedness and headaches. Hematological: Negative. Psychiatric/Behavioral: Negative. Objective: amitriptyline (ELAVIL) 10 mg tablet Take two tablets by mouth at bedtime waldo ly. diazepam (VALIUM) 5 mg tablet Take 5 mg by mouth as Needed. dizziness diphenhydrAMINE (BENADRYL) 25 mg capsule Take 25 mg by mouth every 6 hours a s needed. duloxetine DR (CYMBALTA) 60 mg capsule Take 60 mg by mouth daily. ethosuximide(+) (ZARONTIN) 250 mg capsule Take 250 mg by mouth daily. fluoxetine (PROZAC) 40 mg capsule TAKE 1 CAPSULE BY MOUTH ONCE DAILY PLEASE SCHEDULE APPT WITH PROVIDER FOR FURTHER REFILLS FLUTICASONE/SALMETEROL (ADVAIR DISKUS IN) Inhale by mouth. Indications: ALS O HAS ADVAIR INHALER PRN ibuprofen (MOTRIN) 800 mg tablet Take 800 mg by mouth three times daily. lisinopriL (ZESTRIL) 20 mg tablet Take 20 mg by mouth twice daily. nortriptyline (PAMELOR) 25 mg capsule Take three capsules by mouth at bedtim e daily. Vitals: 11/11/19 1412 BP: (!) 150/87 BP Source: Arm, Right Upper Patient Position: Sitting Pulse: 92 Temp: 36.7 C (98 F) TempSrc: Oral Weight: 106.1 kg (234 lb) Height: 152.4 cm (60") PainSc: Two Body mass index is 45.7 kg/m. Physical Exam Exam today under microscopy reveals mucoid otorrhea that I evacuated from both s ides with a suction, she has tubes in place that are patent. I did put boric ac id on both sides. Her left postauricular incision is healed well. I did review notes from Dr. Ortiz's office discussing the chronic drainage, also reviewed hi s CT scan report that reveals opacification of both mastoids, and thinning of th e tegmen. Neat Appearance: Yes Oral Communication: Yes Clear Voice: Yes Neuro: Left: Right: CN VII 6 CN 3, 4, 5, 6 normal normal CN 9, 10, 11, 12 normal normal Ext Nose lesion N Nasopharynx lesion N Face Lesions N Spont Nyst N Int Nose lesion N Neck Lesions N Sinus Tenderness N Gaze Nystagmus N Lip/Teeth/Gum Lesion N Thyroid Lesions N Salivary Gland Lesions N Affect Abnorma l N Oropharynx Lesion N Lymphadenopathy N Edema Extremities N Orientation Abn N Indirect Laryngoscopy abnl? n Abdominal Tenderness N Noticeable Extremity change s? N Unusual chest expansion with respirations? N Testing: Records from Dr. Ortiz office reviewed. CT scan report from 07/26/19 reviewed. Assessment and Plan: Juventino for bilateral chronic otitis media. She did have a history of a left ty mpanoplasty with mastoidectomy [facility] Since then, she was doing fine, but over the past year she has had constant ear drainage, she has had tubes placed in her ears multiple times her most recen t set was 6 to 12 ago. She is tried oral antibiotics, eardrops, to no avail. H er left side is worse than her right. Exam today under microscopy reveals mucoid otorrhea that I evacuated from both s ides with a suction, she has tubes in place that are patent. I did put boric ac id on both sides. Her left postauricular incision is healed well. I did review notes from Dr. Ortiz's office discussing the chronic drainage, also reviewed hi s CT scan report that reveals opacification of both mastoids, and thinning of th e tegmen. He has chronic otitis media, bilaterally. I discussed a revision left tympanopl asty with mastoidectomy, possibly staged first. Risks of hearing loss, facial w eakness, dizziness, infection, hematoma, and cerebrospinal fluid leak were discu ssed. I like to get her CT scan for review, potentially she might have a CSF le ak on one or both sides. If that is the case, we will plan on having neurosurge ry available. We will keep her on floxin drops for the duration until her surge ry. documented in this encounter Miscellaneous Notes * Discharge Instructions - Fidencio Whittington RN - 11/29/2019 6:44 PM CDT Discharge instructions discussed with pts mother and copy sent with pt. Answered all pts questions. Pt states that she has all her belongings. * Operative Report (Direct Entry) - Jessenia Vela MD - 11/29/2019 2:05 PM CDT OPERATIVE REPORT Name: Juventino Lopez is a 39 y.o. female : 1980 MR N#: [id number] DATE OF OPERATION: 11/29/2019 Surgeon(s) and Role: * Jessenia Vela MD - Primary * Madhuri Gautam MD - Resident - Assisting Preoperative Diagnosis: Bilateral chronic otitis media [H66.93] Post-op Diagnosis * Bilateral chronic otitis media [H66.93] Procedure(s) (LRB): TYMPANOPLASTY WITH MASTOIDECTOMY WITH INTACT/ RECONSTRUCTION CANAL WALL WITHOUT OSSICULAR CHAIN RECONSTRUCTION (Left) Anesthesia Type: General Description and Findings of Operative Procedure: Findings: Middle ear and mastoid were full of granulation tissue. The stapes moffett perstructure was eroded only the posterior jesús remained. Footplate appeared to be mobile. All granulation tissue was removed, eustachian tube looked to be bl ocked off. Tube was replaced thickened Silastic sheeting was placed in the midd le ear space with the tail through the facial recess. Facial nerve stimulated w ell along the tympanic segment at 0.8 mA at the end of all dissection. Description: Satisfactory endotracheal tube anesthesia was induced, the head of bed was turned 180 degrees. Recording electrodes were placed into her left orbi cularis oculi and yanira muscles and a tap test performed to ensure proper connect ion. She had sequential compression device in her legs and received Ancef and D ecadron prior to skin incision. A left postauricular clipping was performed and I injected local anesthetic behind the ear. Left ear was prepped and draped. I examined her ear under the microscope and noted purulent drainage. I made vas cular strip incisions and brought forward the ear. The mastoid overgrown. The middle ear space was entered, the chorda tympani nerve was left intact but it wa s previously stretched. The tube was removed. The middle ear space was filled with granulation tissue. The incudostapedial joint was cut sharply. The drum w as taken sharply off the patient's malleus. It was extremely thick. Mastoid wa s revised, lateral semicircular canal was identified through layers of granulati on tissue which were removed. The incus was removed. The facial recess was wid ened. Dissection in the oval window region revealed that the anterior jesús was eroded. The footplate appeared to be mobile and the posterior jesús was left in place. Granulation tissue was taken off the facial nerve. The tensor tympani t endon was cut and malleus was removed. The wound scopes irrigated out with Ance f saline. Thickened Silastic sheeting was placed in the middle ear space, the t ube was replaced in the middle ear space was filled with Floxin Gelfoam the mast oid was also filled with Floxin Gelfoam. The facial nerve stimulated well along the tympanic segment at 0.8 mA with excellent response. The muscular periosteu m was reapproximated using 3-0 Vicryl sutures and the vascular strip packed down into the ear canal for Floxin soaked Gelfoam around the tube. A dollop of Bact roban was placed over the tube tip and more Gelfoam was placed. The postauricul ar incision was closed using 3-0 Vicryl sutures and Dermabond and a sterile dres sing applied. She was aroused from anesthesia satisfactorily. Estimated Blood Loss: No blood loss documented. Specimen(s) Removed/Disposition: ID Type Source Tests Collected by Time Destination 1 : LEFT MASTOID TISSUE Tissue Ear SURGICAL PATHOLOGY Jessenia Vela MD [id number] Attestation: I performed this procedure with a resident. Complications: Hematoma Implants: thick silastic sheeting, modified hernandez T-tube Drains: None Disposition: PACU - stable Jessenia Vela MD Pager documented in this encounter Plan of Treatment Not on filedocumented as of this encounter Procedures Comments Procedure Name Priority Date/Time Associated Diag nosis HC LEV III SRG PTH, GROSS Routine 11/29/2019 Bila teral chronic otitis & MICRO 2:25 PM CDT media TYMPANOPLASTY WITH 11/29/2019 Bilateral chronic otitis MASTOIDECTOMY WITH 1:30 PM CDT media INTACT/ RECONSTRUCTION CANAL WALL WITHOUT OSSICULAR CHAIN RECONSTRUCTION documented in this encounter Results * SURGICAL PATHOLOGY (11/29/2019 2:25 PM CDT) PATHOLOGY [email or web address] Department of Pathology and Laboratory Medicine [address] [place] [id number] Surgical Pathology Office: [phone] SURGICAL PATHOLOGY REPORT NAME: JUVENTINO LOPEZ Effie SURG PATH #: [id number] MR #: [id number] SPECIMEN CLASS: [facility] BILLING #: [id number] ALT ID #: LOCATION: [id number] DATE OF PROCEDURE: 11/29/2019 AGE: 39 SEX: [...] used: No Cassette A1- Specimen submitted entirely. ([facility]) [facility]/12/02/2019 Specimen Tissue - Ear Performing Organization Address [facility]/State[facility] MA[facility] LAB [address] [place] [address] documented in this encounter Visit Diagnoses Diagnosis Bilateral chronic otitis media Unspecified otitis media documented in this encounter Administered Medications Action Date Dose Rate Site Medication Order MAR Action 11/29/2019 5:50 PM CDT 2.5 mg albuterol 0.083% (PROVENTIL) nebulizer Given solution 2.5 mg 2.5 mg, Inhalation, RT ONCE, 1 dose, Starting Mon11/29/19 at 1838, Until Mon11/29/19 at 1750, Signs and Symptoms of Acute Airway Obstruction, When administered by RT, will be per RT policy., 11/29/2019 2:11 PM CDT 3,000 mg ceFAZolin (ANCEF) injection Given INTRA-PROCEDURE MED, Starting Mon11/29/19 at 1411, Until Mon11/29/19 at 1605, Intra-op 11/29/2019 4:19 PM CDT 25 mg diphenhydrAMINE (BENADRYL) injection 25 Given mg 25 mg, Intravenous, ONCE PRN, 1 dose, Starting Mon11/29/19 at 1522, Until Mon11/29/19 at 1619, Other..., nausea/vomiting, First line agent., PAC U (only) 11/29/2019 2:11 PM CDT 2 mg EPINEPHrine (ADRENALIN) injection Given INTRA-PROCEDURE MED, Starting Mon11/29/19 at 1411, Until Mon11/29/19 at 1605, Intra-op 11/29/2019 5:13 PM CDT 50 mcg fentaNYL citrate PF (SUBLIMAZE) Given injection 50 mcg 50 mcg, Intravenous, EVERY 5 MIN PRN, Starting Mon11/29/19 at 1522, Until Mon11/29/19 at 1836, Pain Injectable, For Pain Score 7-10, For Pain Score 7-10 Maximum total dose of 200 mcg Hold for RR < 10, PACU (only) 11/29/2019 5:50 PM CDT 0.5 mg ipratropium bromide (ATROVENT) 0.02 % Given nebulizer solution 0.5 mg 0.5 mg, Inhalation, RT ONCE, 1 dose, Starting Mon11/29/19 at 1838, Until Mon11/29/19 at 1750, RT PROTOCOL, When administered by RT, will be per RT policy., 11/29/2019 6:22 PM CDT 30 mg ketorolac (TORADOL) injection 30 mg Given 30 mg, Intravenous, ONCE, 1 dose, Mon11/29/19 at 1915, Please note: this medication will be automatically discontinued 5 days after ordered per hospital policy. Please obtain a new order if the medication needs to be continued., 11/29/2019 4:18 PM CDT 1,000 mL 20 mL/hr lactated ringers infusion Given - New 1,000 mL, 1,000 mL, Intravenous, at 20 Bag mL/hr, CONTINUOUS, Starting Mon11/29/19 at 0800, Until Mon11/29/19 at 1836, Pre-Op 1,000 mL 20 mL/hr Given - New Bag 11/29/2019 8:22 AM CDT LACTATED RINGERS IV SOLP (Cabinet Override) NOW, 1 dose, Mon11/29/19 at 0800, Created by cabinet override, Created by cabinet override, 11/29/2019 4:01 PM CDT 7.5 mL lidocaine 1%/EPINEPHrine 1:100,000 Given injection INTRA-PROCEDURE MED, Starting Mon11/29/19 at 1601, Until Mon11/29/19 at 1605, Intra-op 11/29/2019 2:12 PM CDT 1 Dose mupirocin (BACTROBAN) 2 % topical Given ointment INTRA-PROCEDURE MED, Starting Mon11/29/19 at 1412, Until Mon11/29/19 at 1605, Intra-op 11/29/2019 2:12 PM CDT 2 drops ofloxacin (FLOXIN) 0.3 % (+) ophthalmic Given solution INTRA-PROCEDURE MED, Starting Mon11/29/19 at 1412, Until Mon11/29/19 at 1605, Intra-op 11/29/2019 4:58 PM CDT 2 tablets oxyCODONE/acetaminophen (PERCOCET) 5/325 Given mg tablet 1-2 tablet 1-2 tablet, Oral, ONCE PRN, 1 dose, Starting Mon11/29/19 at 1522, Until Mon11/29/19 at 1658, Pain PO, For Pain Scor e <4, For Pain Score <4, PACU (only) documented in this encounter
--- OUTSIDE RECORDS SUMMARY | 2019-12-05 23:59 | XMS REPORT | Encounter Summary ---
Author Author [facility] Organization [facility] Address Unknown Phone Unavailable Care Team Providers Care Electricians Top Helper Name Role Phone PCP Unavailable Encounter Details Care Team Description Date Type Department [facility], Historical 05/19/2010 PracPart Note [facility] Social History Date Tobacco Use Types Packs/Day Years Used Never Assessed Sex Assigned at Date Recorded Not on file Industry Job Start Date Occupation Not on file Not on file Not on file Travel End Travel History Travel Start No recent travel history available. 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 KD documented in this encounter Plan of Treatment Not on filedocumented as of this encounter Visit Diagnoses Not on filedocumented in this encounter
--- OUTSIDE RECORDS SUMMARY | 2019-12-05 23:59 | XMS REPORT | Encounter Summary ---
Author Author [facility] Address Unknown Phone Unavailable Care Team Providers Care Room Service Manager Name Role Phone PCP Unavailable Encounter Details Care Team Description Date Type Department Avi Wolfe DO [address] [place] [address] [phone] 12/22/2009 PracPart Note [facility] ogy [address] [place] [address] Social History Date Tobacco Use Types Packs/Day Years Used Never Assessed Sex Assigned at Date Recorded Not on file Industry Job Start Date Occupation Not on file Not on file Not on file Travel End Travel History Travel Start No recent travel history available. documented as of this encounter Progress Notes * Avi Wolfe, - 12/22/2009 10:59 AM CDT . :10:59AM .T:Phone call from patient From: Avi Wolfe (JYOTHI) Originated by: Avi Wolfe (JYOTHI) Sent: 12/22/2009 at 10:59AM To: Yola Garcia () Type: CHART Priority: 3 Subject: Phone call from patient I agree.JYOTHI 12/22/09 12/22/09 4:04pm I spoke with Jazzy and she is actually doing a little bit bet ter today. We discussed Dr. Wolfe is in agreement with her stopping the N uvigil first. I asked her to call me in a couple of days to report her progress. Otherwise she will call if she has any further questions or concerns. Yola grace Original Message: From: To: JYOTHI Subject: Phone call from patient Priority: 3 Date: 12/22/2009 Nurse Note: 12/22/09 Providers: : Physician Response: Reason for Call: Next Visit: 02/22/10 - This 29 yr old female reports by phone since starting th e nuvigil and increasing the topiramate she ahs been experiencing extreme mood c hanges. She reports being very agitated and angry is having a difficult time wi th anger towards her children. I advised her to stop the nuvigil until we got f adrienther recommendations from you. She also stated the Relpax worked for her and s he is requesting a prescription. Please advise. Thanks! Yola t Call this patient at Home yes Other Contact Name and Number Current medications: Current Medications: Rx: BUSPIRONE 15mg 1 twice daily Rx: ESTRADIOL 2mg 1 daily Rx: FLUOXETINE 40mg 1 daily Rx: IBUPROFEN 200mg PRN Rx: TOPIRAMATE 100mg 1 at bedtime 12/17/09 Zach Concpecion MD [address] [place] [address] Re: Jazzy Ramirez : [address] [...] without nystagmus. She weighed 193-pounds. BP was 110/70with pulse of 84 per minute. She is [...] try another triptan. 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 I am prescribing Nuvigil 150 mg q am #30 X1. I am ordering a TSH. I plan on seeing her in followup in the next two months, or earlier if further p roblems develop. Sincerely yours, Lyndon Cha/marcia documented in this encounter Plan of Treatment Not on filedocumented as of this encounter Visit Diagnoses Not on filedocumented in this encounter
--- OUTSIDE RECORDS SUMMARY | 2019-12-05 23:59 | XMS REPORT | Encounter Summary ---
Author Author [facility] Address Unknown Phone Unavailable Care Team Providers Care Delivery Driver Name Role Phone PCP Unavailable Encounter Details Care Team Description Date Type Department Avi Wolfe DO [address] [facility] [address] [place] [address] [phone] Syncope and collapse 11/09/[address] [address] Social History Date Tobacco Use Types Packs/Day Years Used Never Assessed Sex Assigned at Date Recorded Not on file Industry Job Start Date Occupation Not on file Not on file Not on file Travel End Travel History Travel Start No recent travel history available. documented as of this encounter Procedure Notes * Avi Wolfe, - 07/13/2013 5:05 AM PRINT COLOR OPERATOR Associated Order(s): EEG ROUTINE (UP TO 40 MIN) REPORT Name: JAZZY BARRIENTOS MRN/Unit #: [id number] Date of : 1980 Attending Physician: AVI WOLFE Age: 29Y DATE OF ADMISSION: DATE OF [...] majority of the record consisted of stage I and stage II sleep, with normal sleep features. No focal or epileptiform activity was recorded. Hyperventilation over 3 minutes failed to activate any abnormalities. Photic stimulation was done which elicited bilateral photic evoked responses at higher flash frequencies, which was not associated with photoparoxysmal response. IMPRESSION: This is a normal spontaneous brief awake and predominantly sleep electroencephalographic recording. Avi Wolfe DO Dictated by: cc: Authenticated and Edited by Michael. Laci Wolfe DO On 11/10/09 5:35:27 PM T COLOR OPERATOR documented in this encounter Plan of Treatment Not on filedocumented as of this encounter Procedures Comments Procedure Name Priority Date/Time Associated Diag nosis EEG ROUTINE (UP TO 40 11/09/2009 MIN) 3:05 PM CDT documented in this encounter Results * EEG ROUTINE (UP TO 40 MIN) (11/09/2009 3:05 PM CDT) Specimen Transcriptions Avi Wolfe DO - 07/13/2013 5:05 AM PRINT COLOR OPERATOR REPORT Name: JAZZY BARRIENTOS MRN/Unit #: [id number] Date of : 1980 Attending Physician: AVI WOLFE Age: 29Y DATE OF ADMISSION: DATE OF [...] majority of the record consisted of stage I and stage II sleep, with normal sleep features. No focal or epileptiform activity was recorded. Hyperventilation over 3 minutes failed to activate any abnormalities. Photic stimulation was done which elicited bilateral photic evoked responses at higher flash frequencies, which was not associated with photoparoxysmal response. IMPRESSION: This is a normal spontaneous brief awake and predominantly sleep electroencephalographic recording. Avi Wolfe DO Dictated by: cc: Authenticated and Edited by Michael. Laci Wolfe DO On 11/10/09 5:35:27 PM documented in this encounter Visit Diagnoses Diagnosis Syncope and collapse documented in this encounter
--- OUTSIDE RECORDS SUMMARY | 2019-12-05 23:59 | XMS REPORT | Encounter Summary ---
Author Author [facility] Address Unknown Phone Unavailable Care Team Providers Care Independent Video Producer Name Role Phone PCP Unavailable Encounter Details Care Team Description Date Type Department Avi Wolfe DO [address] [facility] [address] [place] [address] [phone] 12/17/2009 Hist-Visit [facility] Social History Date Tobacco Use Types Packs/Day Years Used Never Assessed Sex Assigned at Date Recorded Not on file Industry Job Start Date Occupation Not on file Not on file Not on file Travel End Travel History Travel Start No recent travel history available. documented as of this encounter Progress Notes * Avi Wolfe DO - 12/17/2009 1:13 PM CDT . : 01:13pm .T: Return patient PV:[facility], [facility] Shabnam Dhillon M.D. [address] [facility] Erasmo Dhillon M.D. [address] Rad[place] [address] [place], [place] [address] [address] [place] [address] [place] [address] Kalee Townsend M.D. Brad Wasserman M.D. Nia Moeller M.D. F ax: Avi Wolfe D.O. Lambert King M.D. [facility] Robin Lund M.D., Ph.D. Juliano Wynne M.D. 12/17/09 Zach Concepcion MD [address] [place] [phone] Re: Jazzy Ramirez : [address] [...] try another triptan. 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 I am prescribing Nuvigil 150 mg q am #30 X1. I am ordering a TSH. I plan on seeing her in followup in the next two months, or earlier if further p roblems develop. Sincerely yours, Lyndon Cha. JYOTHI/lucillet # SIGNED BY Avi Wolfe DO (MJS) 12/22/2009 01:09PM documented in this encounter Plan of Treatment Not on filedocumented as of this encounter Visit Diagnoses Not on filedocumented in this encounter
--- OUTSIDE RECORDS SUMMARY | 2019-12-05 23:59 | XMS REPORT | Encounter Summary ---
Author Author [facility] Address Unknown Phone Unavailable Care Team Providers Care Project Builder Name Role Phone PCP Unavailable Encounter Details Care Team Description Date Type Department [facility], Historical 01/05/2010 PracPart Note [facility] Social History Date Tobacco Use Types Packs/Day Years Used Never Assessed Sex Assigned at Date Recorded Not on file Industry Job Start Date Occupation Not on file Not on file Not on file Travel End Travel History Travel Start No recent travel history available. documented as of this encounter Progress Notes * [facility], Historical - 01/05/2010 4:40 PM CDT . :04:40PM .T:mail rec'd From: Brooklynn Perry (EDWARD) Originated by: Brooklynn Perry (EDWARD) Sent: 01/05 at 04:40PM To: Luz Maria Nettles (DALILA) Type: CHART Priority: 3 Attachment: INVALID LINK:Jazzy Ramirez [id number].tif - [id number].tif|[id number]\\M:\\ppar t\\Files\\[id number]\\[id number]\\BQWV394\\UXLI153\\XYWD593\\LCPW075\\ZNGH250\\WVGV936\\RAPT525\\ FIWT903\\HJCW248\\SOSN673\\MCVT446\\LKQF208\\ACBV961\\ELXL268\\IGZP338\\ENYY165\\TSWN174\\ KCZU842\\[id number].tif Subject: mail rec'd original in box documented in this encounter Plan of Treatment Not on filedocumented as of this encounter Visit Diagnoses Not on filedocumented in this encounter"
--- OUTSIDE RECORDS SUMMARY | 2019-12-05 23:59 | XMS REPORT | Encounter Summary ---
Author Author [facility] Address Unknown Phone Unavailable Care Team Providers Care Manager Home Improvement Name Role Phone PCP Unavailable Encounter Details Care Team Description Date Type Department [facility], Historical 11/03/2009 PracPart Note [facility] Social History Date Tobacco Use Types Packs/Day Years Used Never Assessed Sex Assigned at Date Recorded Not on file Industry Job Start Date Occupation Not on file Not on file Not on file Travel End Travel History Travel Start No recent travel history available. documented as of this encounter Progress Notes * [facility], Historical - 11/03/2009 9:33 AM CDT . : 09:33am PATIENT NAME: Lashawn Fonseca DATE OF : [birth year] AGE: 29 y ear DATE: 11/03/09 REFERRING PHYSICIAN: Rosa Snyder REASON FOR VISIT : Left thumb - bottom of hand has been having muscle spasms f or a little over a week. No energy always tired, sleep study showed had Idiopath ic Daytime Hypersomolance. Dr. milner have Narcolepsy, Ritalin & Adderall has not helped, have Cataplexy - headaches. DRUG ALLERGIES: - NONE LISTED Aspirin: no Codeine: no Iodine other Dyes: no Penicillin: n o Sulfa : no Other : no PAST MEDICAL HISTORY: ARTHRITIS: no ANEMIA/BLOOD PROBLEMS: no BLADDER PROBLEMS: no CANCER: no SEIZURES : no HEART DISEASE: no STOMACH ULCERS/GASTRITIS: no BLACKOUTS: yes pass out since 2 1/2 yrs old HIGH BLOOD PRESSURE: no LIVER PROBLEMS: no THYROID : no LUNG DISEASE: no COLON/IRRITABLE BOWEL : no HEADACHES: yes DIABETES MELLITUS: no HIGH LIPIDS OR CHOLESTEROL : no STROKE OR TIA: no KIDNEY PROBLEMS: no DEPRESSION/ANXIETY/BIPOLAR: yes LIST ALL MAJOR SURGERIES, HOSPITALIZATIONS, OR ACCIDENTS: SURGERIES - Hysterectomy 2007 CESARIAN SECTION : yes , Review of Systems General Fever yes Sweats yes n Weakness yes Fatigue yes Weight Loss no Pain Average pain most days (lowest) 1 2 3 4 5 6 7 8 9 10 (highest) Where does hurt? Head Staying the same or getting worse? Same Worse What do you take for the pain? Topiramate & Ibuprofen Does it help? no Skin Excessive sun exposure no Blistering/Pena no Use Sunscreen yes Dark Pigmented Skin Lesions no Removed? no Melanoma no Bleeding skin lesion no Skin Cancer no Psoriasis no Chronic Rash no Vitiligo no Evelio no Family member with nevus syndrome no Eyes / Ears / Sinuses Loss of vision no Wear Glass no Cataracts no Glaucoma no Lost hearing yes Ringing in your ears no Sinus trouble no Nosebleeds no Mouth / Neck Dental problems no Wear Dentures no Swollen glands no Laryngitis no Hoarseness no Lungs Cough every day yes Cough, produce sputum most days yes Blood in your sputum no Pneumonia no Bronchitis no Emphysema no Pleurisy no Asthma no Short of breath w/ activity yes Short of breath at rest no Frequent colds no Heart / Blood Vessels Chest pain (angina) no Chest pressure yes Heart attack no Short of breath at night no Heart murmur yes Rapid heartbeat that required treatment no Swollen ankles no Leg cramps at night no Leg cramps when walking no Rheumatic fever no Congenital heart disease no Gastrointestinal Loss appetite no Recent weight change no Excess saliva no Swallowing Problems no Heartburn no Ulcer no Endoscopy no Nausea Vomiting yes Vomiting Blood no Diarrhea no Upset Stomach no Constipation no Black Bowel Movements no Bloody bowel movements no Yellow or jaundiced no Hepatitis no Gall bladder problems no Cirrhosis no Neurological and Spine Back Dominant Right Hand yes Headaches yes Seizure no Double Vision no Blurred Vision no Weakness in extremity yes Numbness yes Stroke no Migraine headaches yes Forgetfulness yes Confusion yes Arthritis no Back pain yes broken bones no Swollen joints no Endocrine / Glands Diabetes Mellitus no Thyroid disease no Other endocrine / gland conditions no 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
--- OUTSIDE RECORDS SUMMARY | 2019-12-05 23:59 | XMS REPORT | Encounter Summary ---
Author Author [facility] Address Unknown Phone Unavailable Care Team Providers Care Carpenter Helper Hardwood Flooring Name Role Phone PCP Unavailable Encounter Details Care Team Description Date Type Department [facility], Historical 01/12/2010 PracPart Note [facility] Social History Date Tobacco Use Types Packs/Day Years Used Never Assessed Sex Assigned at Date Recorded Not on file Industry Job Start Date Occupation Not on file Not on file Not on file Travel End Travel History Travel Start No recent travel history available. documented as of this encounter Progress Notes * [facility], Historical - 01/12/2010 12:34 PM CDT . : 12:34pm .T: chart note pt said she wants a copy of her records for herself. I told her I could mail her a relase form. I verified her address. bg documented in this encounter Plan of Treatment Not on filedocumented as of this encounter Visit Diagnoses Not on filedocumented in this encounter
--- OUTSIDE RECORDS SUMMARY | 2019-12-05 23:59 | XMS REPORT | Encounter Summary ---
Author Author [facility] Address Unknown Phone Unavailable Care Team Providers Care Emergency Dispatcher Name Role Phone PCP Unavailable Encounter Details Care Team Description Date Type Department Avi Wolfe DO [address] [facility] [address] [place] [address] [phone] 05/31/2010 Hist-Visit [facility] Social History Date Tobacco Use Types Packs/Day Years Used Never Assessed Sex Assigned at Date Recorded Not on file Industry Job Start Date Occupation Not on file Not on file Not on file Travel End Travel History Travel Start No recent travel history available. documented as of this encounter Progress Notes * Avi Wolfe DO - 05/31/2010 6:45 PM PRODUCTION PACKAGER . : 06:45pm .T: Return patient PV:S [facility], [facility] Shabnam Dhillon M.D. [address] 20 [facility] Erasmo Dhillon M.D. [address] [place] [address] [place], [place] [address] [place] [address] [place] [address] Kalee Townsend M.D. Brad Wasserman M.D. Nia Moeller M.D. F ax: Avi Wolfe D.O. Lambert King M.D. [facility] Robin Lund M.D., Ph.D. Juliano Wynne M.D. 05/31/10 Zach Concepcion MD [address] [facility] [address] Re: Jazzy Ramirez : [address] [...] BY Avi Wolfe DO (JYOTHI) 06/01/2010 12:58PM UCTION PACKAGER documented in this encounter Plan of Treatment Not on filedocumented as of this encounter Visit Diagnoses Not on filedocumented in this encounter
--- OUTSIDE RECORDS SUMMARY | 2019-12-05 23:59 | XMS REPORT | Encounter Summary ---
Author Author [facility] Organization [facility] Address Unknown Phone Unavailable Care Team Providers Care Psychologist Social Name Role Phone PCP Unavailable Encounter Details Care Team Description Date Type Department Avi Wolfe DO [address] [place] [address] [phone] 12/22/2009 PracPart Note [facility] Neu[facility] [address] [place] [address] Social History Date Tobacco Use Types Packs/Day Years Used Never Assessed Sex Assigned at Date Recorded Not on file Industry Job Start Date Occupation Not on file Not on file Not on file Travel End Travel History Travel Start No recent travel history available. documented as of this encounter Progress Notes * Avi Wolfe, - 12/22/2009 5:33 PM CDT . :05:33PM .T:Phone call from patient From: Avi Wolfe (JYOTHI) Originated by: Avi Wolfe (JYOTHI) Sent: 12/22/2009 at 05:33PM To: Yola Garcia () Type: CHART Priority: 3 Subject: Phone call from patient RX Relpax 40 mg #9 OK.Take at onset of migraine as directed.JYOTHI 12/22/09 12/23/09 10am Relpax rx electronically transmitted and patient notified by phone . She reports again today she is feeling better after stopping the Nuvigil. svitlana will call she if has any further questions or concerns. Yola grace Original Message: From: To: JYOTHI Subject: Phone call from patient Priority: 3 Date: 12/22/2009 Is it okay to send Relpax Rx? Thanks! Yola grace Original Message: From: JYOTHI To: ST Subject: Phone call from patient Priority: 3 Date: 12/22/2009 I agree.JYOTHI 12/22/09 Original Message: From: ST To: JYOTHI Subject: Phone call from patient [...] stop the nuvigil until we got f urther recommendations from you. She also stated the [...] TOPIRAMATE 100mg 1 at bedtime 12/17/09 Zach Concepcion MD [address] [place] [phone] Re: Jazzy Ramirez : 78 Dear [...] about one every other day. The intensity jas scale of 1 to 10 is about 9. Ibuprofen 800 mg has been ineffective. She has associated photophobia and sonophobia associated with a p ressure discomfort in the bifrontal temporal regions. She never been on a tript an. She does not recall having any thyroids checked. She has no other problems . She has not cut back down on [...] try another triptan. 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 I am prescribing Nuvigil 150 mg q am #30 X1. I am ordering a TSH. I plan on seeing her in followup in the next two months, or earlier if further p roblems develop. Sincerely yours, Lyndon Cha. JYOTHI/marcia documented in this encounter Plan of Treatment Not on filedocumented as of this encounter Visit Diagnoses Not on filedocumented in this encounter
--- OUTSIDE RECORDS SUMMARY | 2019-12-06 | XMS REPORT | Encounter Summary ---
Author Author [facility] Organization [facility] Address Unknown Phone Unavailable Care Team Providers Care Pearl Peller Name Role Phone Norris Chavez MD Unavailable Gurinder Antunez MD Unavailable Dwayne Davidson MD Unavailable Gertrude Lam NP PCP Encounter Details Care Team Description Date Type Department 11/22/2019 Travel Social History Date Tobacco Use Types [...] history available. Date Recorded COVID-19 Exposure Response 11/22/2019 10:35 AM CDT In the last month, have [...]
--- OUTSIDE RECORDS SUMMARY | 2019-12-06 | XMS REPORT | Encounter Summary ---
Author Author [facility] Organization [facility] Address Unknown Phone Unavailable Care Team Providers Care Skid Man Name Role Phone Norris Chavez MD Unavailable Gurinder Antunez MD Unavailable Dwayne Davidson MD Unavailable Gertrude Lam NP PCP Reason for Visit * Auth/Cert Referred By Contact Referred To Contact Status Reason Specialty Diagnoses / Procedures Diagnoses Bilateral chronic otitis media Bilateral chronic otitis media [H66.93] P rocedures RI TMPP MASTOIDECT NTC/RCNSTED WALL W/O OCR RI TMPP MASTOIDECT NTC/RCNSTED WALL W/O OCR TYMPANOPLASTY WITH MASTOIDECTOMY WITH INTACT/ RECONSTRUCTION CANAL WALL WITHOUT OSSICULAR CHAIN RECONSTRUCTION Encounter Details Care Team Description Date Type Department Jessenia Vela MD [address] [facility] [address] [address] Bilateral chronic otitis media 11/29/2019 [facility] OR [address] [place] [address] Social History Date Tobacco Use Types Packs/Day [...] This will keep you comfortable and pain-free. [facility] providerwill use general anesthesia . What is general anesthesia? General anesthesia puts you into a state like deep sleep. It goes into the blood stream (IV anesthetics), into the lungs (gas anesthetics), or both. You feel not sherman during the procedure. You will not remember it. During the procedure, the a [facility] provider monitors you continuously. He or [...] medicines and drugsyou take. This includes o rwh-ktu-[id number] medicines, herbs, supplements, alcohol or other drugs. [...] problems a nd help keep you safe. [employer] reviewed this educational content on 02/12/201919992157-1899 [employer], [email or web address]. [address] [place] [address], [place], [place] [address]. All rights reserved. This information is [...] 20 to 21 years ago, possibly at [employer]. Since then, she was doing fine, but [...] 6 hours a s needed. duloxetine DR BENITEZMBALTA) 60 mg capsule Take 60 mg by [...] 20 to 21 years ago, possibly at [facility]. Since then, she was doing fine, [...] 39 y.o. female : 1980 MR N#: [id number] DATE OF OPERATION: 11/29/2019 Surgeon(s) and Role: [...] Tissue Ear SURGICAL PATHOLOGY Jessenia Vela MD 1426 Attestation: I performed this procedure with a [...] PATHOLOGY (11/29/2019 2:25 PM CDT) PATHOLOGY [facility] [email or web address] Department of Pathology and Laboratory Medicine [address] [place] [address] Surgical Pathology Office: [phone] SURGICAL PATHOLOGY REPORT NAME: JUVENTINO LOPEZ SURG PATH #: [id number] MR #: [id number] SPECIMEN CLASS: [facility] BILLING #: [id number] ALT ID #: [facility] DATE OF PROCEDURE: 11/29/2019 AGE: 39 SEX: [...] used: No Cassette A1- Specimen submitted entirely. 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 Chronic tubotympanic suppurative otitis media documented in this encounter Administered Medications Action Date Dose Rate Site Medication Order MAR Action 11/29/2019 5:50 PM CDT 2.5 mg albuterol 0.083% (PROVENTIL) nebulizer Given solution 2.5 mg 2.5 mg, Inhalation, RT ONCE, 1 dose, Starting Mon11/29/19 at 1838, Until Mon11/29/19 at 1750, Signs and Symptoms of Acute Airway Obstruction, When administered by RT, will be per RT policy., 11/29/2019 4:19 PM CDT 25 mg diphenhydrAMINE (BENADRYL) injection 25 Given mg 25 mg, Intravenous, ONCE PRN, 1 dose, Starting Mon11/29/19 at 1522, Until Mon11/29/19 at 1619, Other..., nausea/vomiting, First line agent., PAC U (only) 11/29/2019 5:13 PM CDT 50 mcg fentaNYL [...] cabinet override, Created by cabinet override, 11/29/2019 4:58 PM CDT 2 tablets oxyCODONE/acetaminophen (PERCOCET) 5/325 Given mg tablet 1-2 tablet 1-2 tablet, Oral, ONCE PRN, 1 dose, Starting Mon11/29/19 at 1522, Until Mon11/29/19 at 1658, Pain PO, For Pain Scor e <4, For Pain Score <4, PACU (only) documented in this encounter
--- OUTSIDE RECORDS SUMMARY | 2019-12-06 | XMS REPORT | Encounter Summary ---
Author Author [facility] Organization [facility] Address Unknown Phone Unavailable Care Team Providers Care Painter Interior Finish Name Role Phone Norris Chavez MD Unavailable Gurinder Antunez MD Unavailable Dwayne Davidson MD Unavailable Gertrude Lam NP PCP Encounter Details Care Team Description Date Type Department 11/11/2019 Travel Social History Date Tobacco Use Types [...] history available. Date Recorded COVID-19 Exposure Response 11/11/2019 1:26 PM CDT In the last month, have you [...]
--- OUTSIDE RECORDS SUMMARY | 2019-12-06 | XMS REPORT | Encounter Summary ---
Author Author [facility] Organization [facility] Address Unknown Phone Unavailable Care Team Providers Care Clinical Engineering Manager Name Role Phone Norris Chavez MD Unavailable Gurinder Antunez MD Unavailable Dwayne Davidson MD Unavailable Gertrude Lam NP PCP Encounter Details Care Team Description Date Type Department Andrea Romero MD [address] [facility] [address] [id number] Preop examination (Primary Dx); Preop cardiovascular exam 11/22/2019 Ancillary [facility] [address] [place] [address] Anesthesia Record Responsible Anesthesiologist Anesthesia Start Time Anesthesi a Stop Time Procedure Name Boston Holliday MD 11/29/19 1329 11/29/19 1607 TYMPANOPLASTY WITH MASTOIDECTOMY WITH INTACT/ RECONSTRUCTION CANAL WALL WITHOUT OSSICULAR CHAIN RECONSTRUCTION (Left Ear) Date Time Event Comment 909 AN Equip Check 2019 1149 1328 Out of Pre Procedure 1329 Anes Start 1330 In Room 1330 An Start Data 1339 An Induction The patient was ree valuated immediately before moderate or deep sedation use and before anesthesia induction. 1340 An Intubation 1346 Anesthesia Ready 1401 Antibiotic Given 1405 Proc Start 1558 An Extubation 1604 an stop data 1606 Handoff to RN I completed my SBAR handoff to the receiving nurse. 1607 An Stop Meds * No agents on file. * No blood administrations on file. Removal Type Details Placement 11/29/19 1835 by Fidencio Whittington RN Peripheral 11/29/19; 0815; RN; L; Antecubital; 20 11/29/19 0815 by HARRIET Man G; 1; 11/29/19; 1835 JESSICA Meyer 11/29/19 1558 by Avi Kumar CRNA ETT 11/29/19; 1340; Mask ventilation not 0 11/29/19 1340 by maria teresa Friedman (0); Direct laryngoscopy, Jean Paul Miguel, Stylet; Single-Lumen, Cuffed; 7mm; Mac; 3; Oral; 1-Full view of the glottis; 1 insertion attempt; Auscultation, ETCO2 Detector; 21 centimeters; Atraumatic; 11/29/19; 1558 11/29/19 1639 by Fidencio Whittington RN Peripheral 11/29/19; 1341; Provider; R; Foot; 18 G ; 11/29/19 1341 by HARRIET Friedman 1; 11/29/19; 1639 Jean Paul Miguel, DO 11/29/19 1848 by Taran Rowan Wounds 11/29/19; 1412; Left; Ear; Surgical 1412 by Flor, (NOT for Incision; 11/29/19; 1848 INDIRA Renner Pressure Injuries) documented in this encounter Social History Date Tobacco Use Types Packs/Day [...] Signs Reading Time Taken Comments Vital Sign 134/80 11/22/2019 10:39 AM CDT Blood Pressure 100 11/22/2019 10:39 AM CDT Pulse 36.6 C (97.9 F) 11/22/2019 10:39 AM CDT Temperature - - Respiratory Rate 98% 11/22/2019 10:39 AM CDT Oxygen Saturation - - Inhaled Oxygen Concentration 105 kg (231 lb 6.4 oz) 11/22/2019 10:39 AM CDT Weight 152.4 cm (5') 11/22/2019 10:39 AM CDT Height 45.19 11/22/2019 10:39 AM CDT Body Mass Index documented in [...] impairment: No documented as of this encounter Patient Instructions * Pre-Anesthesia Patient Instructions* Stephanie Alvarado RN - 11/22/2019 11:00 AM CDT GENERAL INFORMATION Before you come to the hospital Make arrangements for a responsible adult to drive you home and stay with you for 24 hours following surgery. Bath/Shower Instructions Take a bath or shower using the special soap given to you in PAC. Use half th e bottle the night before, and the other half the morning of your procedure. Use clean towels with each bath or shower. Put on clean clothes after bath or shower. Avoid using lotion and oils. If you are having surgery above the waist, wear a shirt that fastens up the f ront. Sleep on clean sheets if bath or shower is done the night before procedure. Leave money, credit cards, jewelry, and any other valuables at home. The [facility] is not responsible for the loss or breakage of persona l items. Remove nail marshallese, makeup and all jewelry (including piercings) before comin g to the hospital. The morning of your procedure: brush your teeth and tongue do not smoke do not shave the area where you will have surgery What to bring to the hospital ID/ Insurance Card Manager Regional card Official documents for legal guardianship Copy of your Living Will, Advanced Directives, and/or Durable Power of Attorn ey Small bag with a few personal belongings CPAP/BiPAP machine (including all supplies) Walker,cane, or motorized scooter Cases for glasses/hearing aids/contact lens (bring solutions for contacts) Dress in clean, loose, comfortable clothing Eating or drinking before surgery Do not eat or drink anything after 11:00 p.m. the day before your procedure ( including gum, mints, candy, or chewing tobacco) OR follow the specific instruct ions you were given by your Surgeon. You may have WATER ONLY up to 2 hours before arriving at the hospital. Other instructions Notify your surgeon if: there is a possibility that you are you become ill with a cough, fever, sore throat, nausea, vomiting or flu-like symptoms you have any open wounds/sores that are red, painful, draining, or are new si nce you last saw the doctor you need to cancel your procedure You will receive a call with your surgery arrival time from between 2:30pm an d 4:30pm the last business day before your procedure. If you do not receive a c all, please call [phone] before 4:30pm or [phone] after 4:30pm. Notify us at [facility]: if you need to cancel your procedure if you are going to [place] [address] ? Park in the P5 parking garage located at [facility] [address]. ? [employer] parking is available in front of [facility] between the hours of 7:00 am and 4:00 pm Monday through Monday. ? If parking in the P5 garage, take the east elevators in the parking garage to the second level and walk to the entrance of the [facility]. ? Enter through the 1st floor main entrance and check in with Information Desk. ? If you are a woman between the ages of 10 and 55, and have not had a hysterect emily, you will be asked for a urine sample prior to surgery. Please do not urina te before arriving in the Surgery Waiting Room. Once there, check in and let th e attendant know if you need to provide a sample. You will need to have a COVID19 test performed 2-3 days prior to your surgery. Y our COVID19 test is 11/26 @ 1:20pm. Your test will be performed at a drive-thru c linic at the [facility]. If you are also planning to have lab work drawn while at the campus, please do so first and then have your COVID1 9 [place] [address] Please bring a cell phone, your photo ID and your insurance card. Please use the bathroom prior to your trip to [facility] for your test. Once arrived at the [facility], follow the signage/cones to a parking s pot. [place] and call [phone] to check in. The team will come out to you. Y ou do not have to get out of your vehicle. Our team members will collect the te st sample using a swab and will be wearing all of the necessary personal protect lalit equipment, so you do not need to wear a mask. Once the test is performed it will be important to self quarantine at home until your surgery. Please stay at home, wash your hands frequently, and practice physical distancing. For the safety of all patients, visitors and staff as we work to contain COVID-1 9, we must dramatically restrict patient visitors. Current Visitor Policy (): One visitor per patient per day. Exceptions include: Two parents/guardian for patients younger than 18. End-of-life patients may be allowed additional support persons. Visitors should check with the patient's nurse. Only cancer patients at their exam visit may have one visitor with them. No vis itors are allowed for cancer patients receiving treatment/infusion services. Th is applies at all cancer center locations. Restrictions still apply for patients who test positive for COVID-19 (no visitor s). Visitors will continue to be screened at all entrances. They must be free of fe amy and symptoms to be in our facilities. We ask visitors to follow these guide lines: Wear a mask at all times. Go directly to the nursing station in the unit you are visiting and do not linge r in public areas. Check in at the nursing station before going to the patient's room. Maintain a physical distance of six feet from all others. Follow elevator restrictions to four riding at a time - peak times are 6:30-7:30 a.m., noon and 6:30-7:30 p.m. Be aware cafeteria peak times are 11 a.m. - 1 p.m. Wash your hands frequently and cover your coughs and sneezes. * Pre-Anesthesia Medication Instructions* Poornima Srinivasan, PHARMD - 11/22/2019 11:00 AM CDT YOUR MEDICATION LIST albuterol sulfate (PROAIR HFA) 90 mcg/actuation aerosol inhaler Inhale 2 puf fs by mouth into the lungs every 6 hours as needed for Wheezing or Shortness of Breath. Shake well before use. diphenhydrAMINE (BENADRYL) 25 mg capsule Take 50 mg by mouth twice daily. estradioL (ESTRACE) 1 mg tablet Take 1 mg by mouth daily. ethosuximide(+) (ZARONTIN) 250 mg capsule Take 250 mg by mouth at bedtime da andi. fluoxetine (PROZAC) 40 mg capsule Take 40 mg by mouth daily. fluticasone-salmeterol (ADVAIR DISKUS) 250-50 mcg/dose inhalation disk Inhal e 1 puff by mouth into the lungs every 12 hours. ibuprofen (MOTRIN) 800 mg tablet Take 800 mg by mouth three times daily. lisinopriL (ZESTRIL) 20 mg tablet Take 20 mg by mouth twice daily. ofloxacin (FLOXIN) 0.3 % otic solution Place five drops in affected ear(s) a s directed twice daily. omeprazole DR (PRILOSEC) 40 mg capsule Take 40 mg by mouth daily before carolyne kfast. ondansetron (ZOFRAN ODT) 4 mg rapid dissolve tablet Dissolve 4 mg by mouth e very 8 hours as needed for Nausea or Vomiting. Place on tongue to disolve. SUMAtriptan succinate (IMITREX) 50 mg tablet Take 50 mg by mouth as Needed f or Migraine symptoms. Dose may be repeated in 2 hours if needed. Max of 2 tablet s in 24 hours. YOUR MEDICATION INSTRUCTIONS FOR SURGERY Please continue taking your medicine as your doctor has told you to UNLESS it is listed to stop below. Please contact your prescriber to discuss the benefits/risk of continuing estrad iol. 14 DAYS BEFORE SURGERY Do not start any new vitamins, herbals, or natural supplements before surgery. 7 DAYS BEFORE SURGERY DO NOT TAKE the following anti-inflammatory medications such as ibuprofen (Advil , Motrin) and naproxen (Aleve) You may use acetaminophen (Tylenol) DAY BEFORE SURGERY TAKE your medications the day before surgery as usual unless told differently MORNING OF SURGERY DO NOT take these medications: Remaining vitamins/supplements Ointments/creams/lotions Lisinopril Sumatriptan TAKE these medications with a sip (1-2 ounces) of water: Diphenhydramine Fluoxetine Omeprazole Use all inhalers, nasal sprays, and eye drops as usual May take if needed: Ondansetron Please contact the clinic pharmacist with any changes to your medication list or medication questions before surgery. ? E-mail: [email or web address] ? Before going home from the hospital, please ask your doctor when you should re-s tart any medicine that was stopped for surgery. documented in this encounter Plan of Treatment Order Schedule Name Type Priority Associated Diag noses ONE TIME for 1 Occurrences starting 11/12 until 11/22/2019 ECG 12-LEAD ECG Routine Preop cardiovas cular exam documented as of this encounter Procedures Comments Procedure Name Priority Date/Time Associated Diag nosis HC CBC,AUTOMATED Routine 11/22/2019 Preop examina tion 10:55 AM CDT HC BASIC METABOLIC PANEL Routine 11/22/2019 Preop examination 10:55 AM CDT ECG-SCAN 11/22/2019 12:00 AM CDT documented in this encounter Results * BASIC METABOLIC PANEL (11/22/2019 10:55 AM [...] >60 >60 mL/min [facility] Comment: [place] The eGFR is not validated f or use in drug dosing adjustments. Continue to use estimated creatinine clearance per dosing reference text. Please contact the Clinical Pharmacist for questions. eGFR >60 >60 mL/min [facility] [place] Comment: The eGFR is not validated for use in drug dosing adjustments. Continue to use estimated creatinine clearance per dosing reference text. Please contact the Clinical Pharmacist for questions. Specimen Blood Performing Organization Address [facility] Number [facility] [address] [place] [address] * CBC (11/22/2019 10:55 AM CDT) White Blood 15.6 (H) 4.5 - 11.0 K/UL [facility] Cells RBC 4.05 4.0 - 5.0 M/UL [facility] Hemoglobin 12.1 12.0 - 15.0 [...] MAIN LAB Specimen Blood Performing Organization Address [facility] Ph [facility] Number [facility] [address] [place] [address] * ECG-SCAN (11/22/2019 12:00 AM CDT) Narrative Performed At This result has an attachment that is n ot available. Ordered by an unspecified provider. documented in this encounter Visit Diagnoses Diagnosis Preop examination Preoperative examination, unspecified Preop cardiovascular exam Pre-operative cardiovascular examinatio n documented in this encounter
--- OUTSIDE RECORDS SUMMARY | 2019-12-06 | XMS REPORT | Encounter Summary ---
Author Author [facility] Organization [facility] Address Unknown Phone Unavailable Care Team Providers Care Bread And Pastry Baker Name Role Phone Norris Chavez MD Unavailable Gurinder Antunez MD Unavailable Dwayne Davidson MD Unavailable Gertrude Lam NP PCP Reason for Visit * Auth/Cert Referred By Contact Referred To Contact Status Reason Specialty Diagnoses / Procedures Diagnoses Bilateral chronic otitis media Bilateral chronic otitis media [H66.93] P rocedures HI TMPP MASTOIDECT NTC/RCNSTED WALL W/O OCR HI TMPP MASTOIDECT NTC/RCNSTED WALL W/O OCR TYMPANOPLASTY WITH MASTOIDECTOMY WITH INTACT/ RECONSTRUCTION CANAL WALL WITHOUT OSSICULAR CHAIN RECONSTRUCTION Encounter Details Care Team Description Date Type Department Boston Holliday MD [address] [address] [phone] Christelle Hughes CRNA [address] [address] [phone] 11/29/2019 Anesthesia [facility] [place] [address] [place] [id number] Anesthesia Record Responsible Anesthesiologist Anesthesia Start Time Anesthesi a Stop Time Procedure Name Boston Holliday MD 11/29/19 1329 11/29/19 1607 TYMPANOPLASTY WITH MASTOIDECTOMY WITH INTACT/ RECONSTRUCTION CANAL WALL WITHOUT OSSICULAR CHAIN RECONSTRUCTION (Left Ear) Date Time Event Comment 909 AN Equip Check 20199 1328 Out of Pre Procedure 1329 Anes [...] the receiving nurse. 1607 An Stop Meds Name Total midazolam (VERSED) 1 mg/mL injection 2 mg lidocaine (2%) 200 mg/10mL Injection 100 mg syringe propofol (DIPRIVAN) 200 mg/ 20 mL 200 mg injection (VIAL) succinylcholine (ANECTINE) injection 120 mg (VIAL) phenylephrine (SHANI-SYNEPHRINE) 0.1 mg/mL 400 mcg injection (SYRINGE) dextran 70/hypromellose (GENTEAL TEARS; 2 drop BION TEARS) ophthalmic solution dexamethasone (DECADRON) 10 mg/mL 10 mg injection ceFAZolin (ANCEF) injection 2 g SUFentanil (SUFENTA) 50 mcg/mL 100 mcg 57.06 mcg in sodium chloride PF 0.9% 10 mL Injection phenylephrine (SHANI-SYNEPHRINE) 10 mg in 10.92 mg sodium chloride 0.9% (NS) 250 mL IV dri p (std conc) ePHEDrine injection 40 mg vasopressin (VASOSTRICT) 20 units/mL IV 9 Units soln (VIAL) ondansetron (ZOFRAN) injection 4 mg 4 mg lactated ringers infusion 300 mL sodium chloride 0.9 % infusion (1000 850 mL mL bag) * Name O2 N2O Inspired Sevoflurane Inspired Sevoflurane * No blood administrations on file. Removal Type Details Placement 11/29/19 183 by Fidencio Whittington RN Peripheral 11/29/19; 0815; RN; L; Antecubital; 20 11/29/19 0815 by HARRIET Man G; 1; 11/29/19; 1835 JESSICA Meyer 11/29/19 1558 by Avi Kumar CRNA ETT 11/29/19; 1340; Mask ventilation not 0 11/29/19 1340 by Elder attempted (0); Direct laryngoscopy, Jean Paul Miguel, DO Stylet; Single-Lumen, Cuffed; 7mm; Mac; 3; Oral; 1-Full view of the glottis; 1 insertion attempt; Auscultation, ETCO2 Detector; 21 centimeters; Atraumatic; 11/29/19; 1558 11/29/19 1639 by Fidencio Whittington RN Peripheral 11/29/19; 1341; Provider; R; Foot; 18 G ; 11/29/19 1341 by Elder, IV 1; 11/29/19; 1639 Jean Paul T, DO 11/29/19 1848 by Taran Rowan Wounds [...] impairment: No documented as of this encounter OR Notes * Anesthesia Postprocedure Evaluation - Annie Edwards MD - 11/29/2019 7:36 PM CDT Post-Anesthesia Evaluation Name: Jazzy Lopez : 1980 Age: 39 y.o. Sex: female Procedure Information Anesthesia Start Date/Time: 11/29/19 1329 Procedure: TYMPANOPLASTY WITH MASTOIDECTOMY WITH INTACT/ RECONSTRUCTION CANAL WALL WITHOUT OSSICULAR CHAIN RECONSTRUCTION (Left Ear) - CASE LENGTH 2.5 HOURS Location: [facility] OR10 / CA3 OR/Periop Surgeon: Andrea Romero MD Post-Anesthesia Vitals Vitals Value Taken Time BP 132/78 11/29/2019 6:30 PM Temp 36.9 C (98.4 F) 11/29/2019 6:30 PM Pulse 91 11/29/2019 6:30 PM Respirations 11 PER MINUTE 11/29/2019 6:30 PM SpO2 96 % 11/29/2019 6:30 PM Post Anesthesia Evaluation Note Evaluation location: Pre/Post Patient participation: recovered; patient participated in evaluation Level of consciousness: alert Pain score: 5 (tolerable, would like to go home) Pain management: adequate Hydration: normovolemia Airway patency: adequate Perioperative Events Post-op nausea and vomiting: no PONV Postoperative Status Cardiovascular status: hemodynamically stable Respiratory status: spontaneous ventilation Additional comments: Post-Anesthesia Evaluation Attestation: I reviewed and agre e the indicated post-anesthesia care was provided. I have reviewed angel portions of the indicated post anesthesia care. I have examined the patient's vitals, phy sical status, and complications and agree with what is documented. Staff name: Annie Edwards MD Date: 11/29/2019 Perioperative Events Perioperative Event: No Emergency Case Activation: No * Anesthesia Preprocedure Evaluation - Fernando Gunter MD - 11/22/2019 8:16 AM CDT Anesthesia Pre-Procedure Evaluation Name: Jazzy Lopez : 1980 Age: 39 y.o. Sex: female Procedure Info: TYMPANOPLASTY WITH MASTOIDECTOMY WITH INTACT/ RECONSTRUCTION CAN AL WALL WITHOUT OSSICULAR CHAIN RECONSTRUCTION (Left) Physical Assessment Vital Signs (last filed in past 24 hours): BP: 146/102 (11/29 799) Temp: 36.5 C (97.7 F) (11/29 799) Pulse: 96 (11/29 799) Respirations: 17 PER MINUTE (11/29 799) SpO2: 99 % (11/29 799) Height: 152.4 cm (60") (11/29 799) Weight: 103.4 kg (228 lb) (11/29 799) Patient History Allergies Allergen Reactions Gabapentin DIZZINESS Reglan [Metoclopramide] SEE COMMENTS "lose complete control of arms, legs, head, and cannot speak" per pt Current Medications Medication Directions albuterol sulfate (PROAIR HFA) 90 mcg/actuation aerosol inhaler Inhale 2 puffs b y mouth into the lungs every 6 hours as needed for Wheezing or Shortness of Bella th. Shake well before use. diphenhydrAMINE (BENADRYL) 25 mg capsule Take 50 mg by mouth twice daily. estradioL (ESTRACE) 1 mg tablet Take 1 mg by mouth daily. ethosuximide(+) (ZARONTIN) 250 mg capsule Take 250 mg by mouth at bedtime daily. fluoxetine (PROZAC) 40 mg capsule Take 40 mg by mouth daily. fluticasone-salmeterol (ADVAIR DISKUS) 250-50 mcg/dose inhalation disk Inhale 1 puff by mouth into the lungs every 12 hours. ibuprofen (MOTRIN) 800 mg tablet Take 800 mg by mouth three times daily. lisinopriL (ZESTRIL) 20 mg tablet Take 20 mg by mouth twice daily. ofloxacin (FLOXIN) 0.3 % otic solution Place five drops in affected ear(s) as di rected twice daily. omeprazole DR (PRILOSEC) 40 mg capsule Take 40 mg by mouth daily before breakfas t. ondansetron (ZOFRAN ODT) 4 mg rapid dissolve tablet Dissolve 4 mg by mouth every 8 hours as needed for Nausea or Vomiting. Place on tongue to disolve. SUMAtriptan succinate (IMITREX) 50 mg tablet Take 50 mg by mouth as Needed for M igraine symptoms. Dose may be repeated in 2 hours if needed. Max of 2 tablets in 24 hours. Medical History: Diagnosis Date Alternating constipation and diarrhea Anemia Chronic abdominal pain COPD (chronic obstructive pulmonary disease) ([facility]) Delayed gastric emptying Diverticulitis 2009 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 Kidney calculi Migraine Osteoarthritis spine Seizure (HCC) Sleep disorder 2009 TMJ (temporomandibular joint disorder) Ulcer 2012 Surgical History: Procedure Laterality Date LAPAROSCOPY 1998 EAR SURGERY 1999 left TUBAL LIGATION 2004 HYSTERECTOMY 2008 CHOLECYSTECTOMY 2010 UPPER GASTROINTESTINAL ENDOSCOPY 2010 SECTION 1996, 2001, 2003 COLONOSCOPY 04/28/10. 2010 HX HYSTERECTOMY Social History Tobacco Use Smoking status: Current Every Day Smoker Packs/day: 1.00 Years: 10.00 Pack years: 10.00 Types: Cigarettes Smokeless tobacco: Never Used Substance Use Topics Alcohol use: Yes Comment: less than once a month Drug use: No Review of Systems/Medical History Patient summary reviewed Nursing notes reviewed Pertinent labs reviewed PONV Screening: Female gender No history of anesthetic complications No family history of anesthetic complications Airway TMJ ( popping (left sided) and pain) Pulmonary Current smoker (1 PPD,20 PYH.) Asthma (uses Advair daily and albuterol PRN with exertion.) COPD ( uses a dvair twice daily, albuterol PRN (mostly with exertion, ~ twice a week)) No recent URI No sleep apnea PCP manages asthma and COPD Cardiovascular Recent diagnostic studies: ECG EKG 11/22/19- SR, old inferior infarct. Exercise tolerance: >4 METS (pt reports unable to walk 4 blocks or climb 1 flight of stairs without SOB, no CP, pt reports SOB related to asthma/COPD. She also c/o back pain that prevents her from waling upstairs.) Beta Lizzy therapy: No Beta blockers within 24 hours: n/a AICD: Mrs. Lopze denies ever having an NE. Hypertension, well controlled Valvular problems/murmurs ( as childhood that has continued into adulthood, has never had an echo) No PTCA Palpitations ( since childhood, wore a heart monitor as a child, this was no rmal, palpitations have continued. Pt reports previous stress test negative) No dysrhythmias No angina No hyperlipidemia No orthopnea Dyspnea on exertion No syncope ( pt has seizures that mimic passing out, possibly absence seizur es) Patient thinks she may have saw a mortgage loan interviewer as a child, no cardiology as an adult, no cardiology testing besides EKG in the last 20 years. GI/Hepatic/Renal GERD ( on PPI), well controlled Peptic ulcer disease (~2012, resolved, no recurrence) No nausea No vomiting Hx of diverticulosis Hx of kidney stones Hx of alternating constipation and diarrhea, mostly diarrhea Neuro/Psych Seizures (on ethosuximide, last seizure 2-3 months ago, large decrease in se izures since starting ethosuximide), followed by PCP, no neurology ), well contr olled No CVA Headaches ( migrianes on PRN imitrex) No indications/hx of neuropathy Psychiatric history ( controlled) Depression Anxiety Musculoskeletal No neck pain Back pain Arthritis HX of scoliosis and mild history of spina bifida Endocrine/Other No diabetes No hypothyroidism No hyperthyroidism No anemia (hx of anemia, denies recent anemia, has required blood transfusio n in the past, last ~20 years ago, no reactions) No blood dyscrasia No malignancy Obesity ( BMI 45) Hx of endometriosis. S/p Hysterectomy Constitution - negative Physical Exam Airway Findings Mallampati: II TM distance: <3 FB Neck ROM: full Mouth opening: limited Airway patency: adequate Comments: TMJ pain on left side Dental Findings: Comments: Edentulous Cardiovascular Findings: Rhythm: regular Rate: normal Pulmonary Findings: Breath sounds clear to auscultation. Abdominal Findings: Obese Abdomen soft Bowel sounds normal. Neurological Findings: Negative Alert and oriented x 3 Constitutional findings: No acute distress Diagnostic Tests Hematology: Lab Results Component Value Date HGB 12.1 11/22/2019 HCT 35.7 11/22/2019 PLTCT 444 11/22/2019 WBC 15.6 11/22/2019 NEUT 70 05/26/2011 ANC 6.22 05/26/2011 ALC 2.19 05/26/2011 ABDIFATAH 4 05/26/2011 AMC 0.31 05/26/2011 EOSA 1 05/26/2011 ABC 0.04 05/26/2011 MCV 88.0 11/22/2019 MCH 29.7 11/22/2019 MCHC 33.8 11/22/2019 MPV 8.3 11/22/2019 RDW 14.3 11/22/2019 General Chemistry: Lab Results Component Value Date NA 138 11/22/2019 K 3.5 11/22/2019 CL 103 11/22/2019 CO2 26 11/22/2019 GAP 9 11/22/2019 BUN 12 11/22/2019 CR 0.65 11/22/2019 GLU 82 11/22/2019 CA 9.5 11/22/2019 ALBUMIN 3.3 03/07/2012 TOTBILI 0.7 03/07/2012 Coagulation: No results found for: PT, PTT, INR Anesthesia Plan ASA score: 3 Plan: general Induction method: intravenous NPO status: acceptable Informed Consent Anesthetic plan and risks discussed with patient. Use of blood products discussed with patient Blood Consent: consented Plan discussed with: anesthesiologist, surgeon/proceduralist, BRIQUETTER OPERATOR and resident. Comments: (Pre-Anesthesia Evaluation Attestation: I have reviewed angel portions of the anesthesia pre-procedure evaluation, and have examined the patient's airw ay, heart, and lungs and agree with what is documented. The anesthesia plan is General and ASA Classification: ASA III Staff name: Fernando Gunter MD Date: 11/29/2019 ) Labs: CBC, BMP KIANNA: none Consults: none Reviewed case with Dr Minor and no further evaluation necessary prior to surg jessica Addendum for lab review (LT): CBC- WBC 15.6, called patient to let her know and she states that this normal for her. Chart review in [facility] indicated WBC count rang e 11.9-16.8. Patient reports they have done testing and they have never been abl e to determine a cause for her chronic elevation of WBC. Patient suspects this i s related to her chronic ear infections. documented in this encounter Plan of Treatment Not on filedocumented as of this encounter Visit Diagnoses Not on filedocumented in this encounter Administered Medications Action Date Dose Rate Site Medication Order MAR Action 11/29/2019 2:01 PM CDT 2 g ceFAZolin (ANCEF) injection Given INTRA-PROCEDURE MED, Starting Mon11/29/19 at 1401, Until Mon11/29/19 at 1608, Anesthesia Intra-op 11/29/2019 1:46 PM CDT 10 mg dexamethasone PF (DECADRON) injection Given INTRA-PROCEDURE MED, Starting Mon11/29/19 at 1346, Until Mon11/29/19 at 1608, Anesthesia Intra-op 11/29/2019 1:41 PM CDT 2 drops dextran 70/hypromellose (GENTEAL TEARS) Given ophthalmic solution INTRA-PROCEDURE MED, Starting Mon11/29/19 at 1341, Until Mon11/29/19 at 1608, Anesthesia Intra-op 11/29/2019 3:25 PM CDT 10 mg ePHEDrine injection Given INTRA-PROCEDURE MED, Starting Mon11/29/19 at 1417, Until Mon11/29/19 at 1608, Anesthesia Intra-op 10 mg Given 11/29/2019 3:10 PM CDT 10 mg Given 11/29/2019 2:36 PM CDT 11/29/2019 1:39 PM CDT 100 mg lidocaine (PF) injection Given INTRA-PROCEDURE MED, Starting Mon11/29/19 at 1339, Until Mon11/29/19 at 1608, Anesthesia Intra-op 11/29/2019 1:25 PM CDT 2 mg midazolam (VERSED) injection Given Intravenous, INTRA-PROCEDURE MED, Starting Mon11/29/19 at 1325, Until Mon11/29/19 at 1608, Anesthesia Intra-op 11/29/2019 3:22 PM CDT 4 mg ondansetron (ZOFRAN) injection 4 mg Given 4 mg, Intravenous, ONCE PRN, 1 dose, Starting Mon11/29/19 at 1522, Until Mon11/29/19 at 1522, Other..., nausea/vomiting, Second line agent, giv e if first line agent ineffective. DO NOT ADMINISTER if given within the last six hours., PACU (only) 11/29/2019 2:29 PM CDT 0.9 mcg/kg/min 139.6 mL/hr phenylephrine (SHANI-SYNEPHRINE) 10 mg in Dose/Rate sodium chloride 0.9% (NS) 250 mL IV drip Change (std conc) 250 mL, INTRA-PROCEDURE MED(CONT), Starting Mon11/29/19 at 1404, Until Mon11/29/19 at 1608, Anesthesia Intra-op 0.8 mcg/kg/min 124.1 mL/hr Dose/Rate Change 11/29/2019 2:10 PM CDT 0.5 mcg/kg/min 77.6 mL/hr Dose/Rate Change 11/29/2019 2:08 PM CDT 11/29/2019 3:34 PM CDT 100 mcg phenylephrine in NS injection syringe Given Intravenous, INTRA-PROCEDURE MED, Starting Mon11/29/19 at 1350, Until Mon11/29/19 at 1608, Anesthesia Intra-op 200 mcg Given 11/29/2019 1:56 PM CDT 100 mcg Given 11/29/2019 1:50 PM CDT 11/29/2019 1:45 PM CDT 20 mg propofol (DIPRIVAN) injection Given INTRA-PROCEDURE MED, Starting Mon11/29/19 at 1339, Until Mon11/29/19 at 1608, Anesthesia Intra-op 180 mg Given 11/29/2019 1:39 PM CDT 11/29/2019 2:01 PM CDT sodium chloride 0.9 % infusion Given - New INTRA-PROCEDURE MED(CONT), Starting Mon Bag 11/29/19 at 1401, Until Mon11/29/19 at 1608, Anesthesia Intra-op 11/29/2019 1:39 PM CDT 120 mg succinylcholine (ANECTINE) injection Given Intravenous, INTRA-PROCEDURE MED, Starting Mon11/29/19 at 1339, Until Mon11/29/19 at 1608, Anesthesia Intra-op 11/29/2019 3:04 PM CDT 0.15 mcg/kg/hr 1.6 mL/hr SUFentanil (SUFENTA) 50 mcg/mL 100 mcg Dose/Rate in sodium chloride PF 0.9% 10 mL Change Injection INTRA-PROCEDURE MED(CONT), Starting Mon11/29/19 at 1400, Until Mon11/29/19 at 1608, Anesthesia Intra-op 0.2 mcg/kg/hr 2.1 mL/hr Given - New Bag 11/29/2019 2:13 PM CDT 30 mcg Bolus 11/29/2019 2:04 PM CDT 11/29/2019 2:19 PM CDT 2 Units vasopressin (VASOSTRICT) injection Given INTRA-PROCEDURE MED, Starting Mon11/29/19 at 1406, Until Mon11/29/19 at 1608, Anesthesia Intra-op 2 Units Given 11/29/2019 2:17 PM CDT 1 Units Given 11/29/2019 2:14 PM CDT documented in this encounter
--- OUTSIDE RECORDS SUMMARY | 2019-12-06 | XMS REPORT | Encounter Summary ---
Author Author [facility] Organization [facility] Address Unknown Phone Unavailable Care Team Providers Care Pin Sorter And Bagger Name Role Phone Norris Chavez MD Unavailable Gurinder Antunez MD Unavailable Dwayne Davidson MD Unavailable Gertrude Lam NP PCP Reason for Visit * Reason Comments Hearing Testing Encounter Details Care Team Description Date Type Department Rob Puri, SHIV [address] [facility] [address] [place] [address] [phone] Bilateral otitis media, unspecified otit is media type (Primary Dx); Mixed conductive and sensorineural hearing loss, bilateral; Eustachian tube dysfunction, bilateral 11/11/2019 Clinical [facility] [address] [place] [address] Social History Date Tobacco Use Types Packs/Day [...] Procedure Name Priority Date/Time Associated Diag nosis AUDITORY FUNCTION TESTS Routine 11/11/2019 Bilate ral otitis media, unspecified otitis media type documented in this encounter Visit Diagnoses Diagnosis Bilateral otitis media, unspecified mike tis media type Mixed conductive and sensorineural hear ing loss, bilateral Mixed hearing loss, bilateral Eustachian tube dysfunction, bilateral documented in this encounter
--- OUTSIDE RECORDS SUMMARY | 2019-12-06 | XMS REPORT | Encounter Summary ---
Author Author [facility] Organization [facility] Address Unknown Phone Unavailable Care Team Providers Care Pipe Fitter Helper Name Role Phone Norris Chavez MD Unavailable Gurinder Antunez MD Unavailable Dwayne Davidson MD Unavailable Gertrude Lam NP PCP Reason for Visit * Reason Comments New Patient ear drainage * (Routine) Referred By Contact Referred To Contact Status Reason Specialty Diagnoses / Procedures Avi Ortiz MD [address] 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 11/11/2019 Office Visit [facility] [address] [facility] [address] [place] [address] Social History Date Tobacco Use Types Packs/Day [...] Signs Reading Time Taken Comments Vital Sign 150/87 11/11/2019 2:12 PM CDT Blood Pressure 92 11/11/2019 2:12 PM CDT Pulse 36.7 C (98 F) 11/11/2019 2:12 PM CDT Temperature - - Respiratory Rate - - Oxygen Saturation - - Inhaled Oxygen Concentration 106.1 kg (234 lb) 11/11/2019 2:12 PM CDT Weight 152.4 cm (5') 11/11/2019 2:12 PM CDT Height 45.7 11/11/2019 2:12 PM CDT Body Mass Index documented in [...] this encounter Patient Instructions * Patient Instructions* Neha Friedman RN - 11/11/2019 2:00 PM CDT You may feel dizzy for a few days after surgery. The cut (incision) the doctor m kristian behind your ear may be sore, and you may have ear pain for about a week. Lalo e bloody fluid may drain from your ear canal and the incision. Your ear will pro bably feel blocked or stuffy. You may not be able to hear as well as before. Thi s usually gets better as the eardrum heals and after the doctor takes the cotton or gauze packing out of the ear canal. The doctor will take out the packing 1 to 2 weeks after surgery. It may take time before your hearing gets better (up to 12 weeks after your surgery). While you are healing, it is important to avoid g etting water in your ear. You will also need to avoid heavy lifting, strenuous e xercise, and other activities that may put pressure on your eardrum. This includ es flying in an airplane, swimming, scuba diving, or playing contact sports. General Instructions for Surgery Patients Your Surgery is scheduled for 11/29/[address] Andrea Romero Preparing for Surgery ? Hold Vitamin E, Vitamin A, Fish oil, multivitamin, and herbal supplements for 14 days prior to surgery. Hold Ibuprofen (Advil, Motrin), Naproxen (Aleve), and any other Non-Steroidal Anti-inflammatory medications for 7 days prior to surgery. If you take aspirin or any blood thinners, please contact the prescribing physici an for recommendation regarding holding these medications prior to surgery. Do not stop taking any heart medications or aspirin without seeking the Approval of your Equipment Coordinator. ? Refrain from smoking two weeks before and two weeks after surgery. Nicotine and tobacco smoke delays healing and can result in scarring. This is the perfe ct time to give up the habit. ? Do not eat or drink anything, including water, after midnight the night befor e your surgery. ? Arrange for someone to take you home from the hospital. ? Park in the parking garage off of [facility]. ? Enter the [facility] through the 1st floor main entrance. ? Check in with admitting on 1st floor. (If you are pre-registered you will go directly to either 2nd floor if going to IR, or 3rd floor to surgery). ? Check in with surgical medical reception specialist center (Waiting Electromechanical Equipment Assembler) after being r egistered. ? You will be escorted by staff up to OR. ? Family will need to expect to wait on 1st level in common areas except during certain points in the visit when they can accompany you. ? You will be contacted between 2:30 and 4:00 on the last day before yo ur procedure. If you do not hear from the Preoperative Assessment Clinic to [facility] your arrival time call [phone] before 4:30 p.m. The Day of Surgery ? Do not eat or drink anything, including water, after midnight the morning of surgery. Essential medication may be taken with a sip of water. ? Wear loose-fitting clothes that fasten in front or back. Avoid clothing that pulls over your head. ? Leave all valuables at home; do not wear jewelry. ? Do not wear any facial or eye make-up. Avoid nail british. ? You may wear glasses but do not wear contact lenses. ? If you wear dentures, keep them in. ? Bring ID and insurance card with you. Restrictions -- No strenuous activity or lifting over 10 pounds for two (2) [place] k[place] following your Surgery. If you are concerned about anything you consider significant, call us at [phone] business hours, ask for your nurse, Neha, or the on-call nurse . After hours ask to speak to the ENT doctor commercial loan collection officer. Please call our office if the following should develop after surgery: a) Cold or sinus infection b) Foul smelling or excessive drainage from the incision site c) Temperature greater than 101 d) Excessive swelling or bleeding e) Persistent nausea or vomiting documented in this encounter Progress Notes * Andrea Romero MD - 11/11/2019 2:00 PM CDT Date of Service: 11/11/2019 Subjective: Jazzy Lopez is a 39 y.o. female. History of Present Illness Jazzy for bilateral chronic otitis media. She did [...] office discussing the chronic drainage, also reviewed his CT scan report that reveals opacification of both mastoids, and thinning of the tegmen. Neat Appearance: Yes Oral Communication: Yes [...] report from 07/26/19 reviewed. Assessment and Plan: Jazzy for bilateral chronic otitis media. She did [...] office discussing the chronic drainage, also reviewed his CT scan report that reveals opacification of both mastoids, and thinning of the tegmen. He has chronic otitis media, bilaterally. [...] her surge ry. 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
--- OUTSIDE RECORDS SUMMARY | 2019-12-06 | XMS REPORT | Encounter Summary ---
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 Name Role Phone Norris Chavez MD Unavailable Gurinder Antunez MD Unavailable Dwayne Davidson MD Unavailable Gertrude Lam NP PCP Reason for Visit * Reason Comments Preop Exam Encounter Details Care Team Description Date Type Department Andrea Romero MD [address] [facility] Lvl [address] [place] [address] [phone] Encounter for screening for other viral diseases 11/27/2019 Nurse Only [facility] [address] [place] [address] Social History Date Tobacco Use Types Packs/Day [...] as of this encounter Progress Notes * Ludivina Edwards - 11/27/2019 1:20 PM CDT [facility]/27/19 1251. Patient iden tity confirmed via photo I.D. Nasopharyngeal procedure explained to the patient. Nasopharyngeal swab completed right Patient education provided given and instructed patient self isolate until conta cted w/ results and further instructions. Swab collected by Judy Lawrence. Date symptoms began/reason for testing: pre op 11/28 documented in this encounter Plan of Treatment Not on filedocumented as of this encounter Procedures Comments Procedure Name Priority Date/Time Associated Diag nosis COVID-19 (SARS-COV-2) PCR Routine 11/27/2019 [place] unter for screening 12:51 PM CDT for other viral diseases documented in this encounter Results * COVID-19 (SARS-COV-2) PCR (11/27/2019 12:51 PM CDT) COVID-19 NASOPHARYNGEAL SWAB MAIN LAB (SARS-CoV-2) PCR Source COVID-19 NOT DETECTED DN-NOT DETECTED MAIN LAB (SARS-CoV-2) Comment: PCR This assay is [...] performance characteristics have been verified by the [facility]. Fact sheet for providers: https://www.fda.gov/media/8542 56/download Fact sheet for patients: https://www.fda.gov/media/0947 57/download Specimen Nasopharyngeal Swab Performing Organization Address City/State/[facility] Ph [facility] Number [facility] [address] [place] [address] documented in this encounter Visit Diagnoses Diagnosis Encounter for screening for other viral diseases documented in this encounter
--- OUTSIDE RECORDS SUMMARY | 2019-12-06 | XMS REPORT | Encounter Summary ---
Author Author [facility] Organization [facility] Address Unknown Phone Unavailable Care Team Providers Care Assurance Assistant Name Role Phone Norris Chavez MD Unavailable Gurinder Antunez MD Unavailable Dwayne Davidson MD Unavailable Gertrude Lam NP PCP Encounter Details Care Team Description Date Type Department Andrea Romero MD [address] [facility] Lvl [address] [place] [id number] [phone] Bilateral chronic otitis media (Primary Dx); Encounter for screening for other viral diseases 11/11/2019 Prep for Case [facility] [address] [facility] [address] [place], [place] [phone] Social History Date Tobacco Use Types Packs/Day [...] Not on filedocumented as of this encounter Results * COVID-19 (SARS-COV-2) PCR [...] performance characteristics have been verified by the [facility]. Fact sheet for providers: https://www.fda.gov/media/7641 56/download Fact sheet for patients: https://www.fda.gov/media/7955 57/download Specimen Nasopharyngeal Swab Performing Organization Address City/State/Zipcode Ph one Number [facility] [address] [place] [address] documented in this encounter Visit Diagnoses Diagnosis Bilateral chronic otitis media Unspecified otitis media Encounter for screening for other viral diseases documented in this encounter
--- OUTSIDE RECORDS SUMMARY | 2019-12-06 00:01 | XMS REPORT | Continuity of Care Document ---
Author Organization Unknown Address Unknown Phone Unavailable Allergies Active Description Code Type Severity Reaction Onset Reported/Identified Relationship to Patient Clinical Status Yes gabapentin [id number] Drug Allerg y Unknown N/A 01/25/[id number] caban Allergy Unknown "CAUSES PT TO L 01/25/2019 Medications There is no data. Problems Date Dx Coded Attending Type Code Diagnosis Diagnosed By 04/26/2013 BIA JIMENEZ MD Ot 382 .9 OTITIS MEDIA NOS 11/21/2013 BIA JIMENEZ MD Ot 381.10 CHR SEROUS OM SIMP/NOS 11/21/2013 BIA JIMENEZ MD Ot V74 .8 SCREEN-BACTERIAL DIS NEC 04/12/2016 BIA JIMENEZ MD [...] CHRONIC SEROUS OTITIS MEDIA, RIGHT EAR 04/18/2016 BARBARA VENEGAS, BIA Canas Ot H65.21 CHRONIC SEROUS OTITIS MEDIA, RIGHT EAR 04/20/2016 BARBARA VENEGAS, BIA Canas Ot H65.21 CHRONIC SEROUS OTITIS MEDIA, RIGHT EAR 06/19/2018 BARBARA VENEGAS, BIA Canas Ot 381.10 CHR SEROUS OM SIMP/NOS 06/19/2018 BIA JIMENEZ MD Ot V72.84 EXAM PRE-OPERATIVE NOS 06/19/2018 BIA JIMENEZ MD Ot V72.84 EXAM PRE-OPERATIVE NOS 06/20/2018 ROMY VENEGAS, MONICA Miguel Ot F32.9 MAJOR DEPRESSIVE DISORDER, SINGLE EPISOD 06/20/2018 MONICA STANTON MD, Ot F41.9 ANXIETY DISORDER, UNSPECIFIED 06/20/2018 MONICA STANTON MD, Ot G43.909 MIGRAINE, UNSP, NOT INTRACTABLE, WITHOUT 06/20/2018 MONICA STANTON MD, Ot J44.9 CHRONIC OBSTRUCTIVE [...] INI 06/20/2018 MONICA STANTON MD, Ot Z79.51 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 STERO 06/20/2018 MONICA STANTON MD, Ot Z79.52 ASSISTED (CURRENT) USE OF SYSTEMIC STER 06/20/2018 MONICA [...] INI 06/21/2018 MONICA STANTON MD, Ot Z79.51 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 STERO 06/21/2018 MONICA STANTON MD, Ot Z79.52 ASSISTED (CURRENT) USE OF SYSTEMIC STER 06/21/2018 MONICA STANTON MD, Ot Z87.448 PERSONAL HISTORY OF OTHER DISEASES OF UR 06/21/2018 MONICA STANTON MD, Ot Z88.8 ALLERGY STATUS TO OT DRUG/MEDS/BIOL SUB 06/21/2018 MONICA STANTON MD, Ot Z90.710 ACQUIRED ABSENCE OF BOTH CERVIX AND UTER 06/21/2018 ROMY VENEGAS, MONICA Miguel Ot Z96.22 MYRINGOTOMY TUBE(S) STATUS 06/21/2018 ROMY VENEGAS, MONICA Miguel Ot Z98.51 TUBAL LIGATION STATUS 08/20/2018 LEIGH ANGEL MD, Ot F32.9 MAJOR DEPRESSIVE DISORDER, SINGLE EPISOD 08/20/2018 LEIGH ANGEL MD, Ot F41.9 ANXIETY DISORDER, UNSPECIFIED 08/20/2018 LEIGH ANGEL MD Ot G40.9 09 EPILEPSY, UNSP, NOT INTRACTABLE, WITHOUT 08/20/2018 LEIGH ANGEL MD Ot G43.9 09 MIGRAINE, UNSP, NOT INTRACTABLE, WITHOUT 08/20/2018 LEIGH ANGEL MD, Ot J44.9 CHRONIC OBSTRUCTIVE PULMONARY DISEASE, U 08/20/2018 LEIGH ANGEL MD, Ot M41.9 SCOLIOSIS, UNSPECIFIED 08/20/2018 LEIGH ANGEL MD, Ot Q05.9 SPINA BIFIDA, UNSPECIFIED 08/20/2018 LEIGH ANGEL MD Ot R10.3 2 LEFT LOWER QUADRANT PAIN 08/20/2018 LEIGH ANGEL MD, Ot Z79.5 1 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 STERO 08/20/2018 LEIGH ANGEL MD, Ot Z79.5 2 ASSISTED (CURRENT) USE OF SYSTEMIC STER 08/20/2018 LEIGH ANGEL MD, Ot Z87.4 42 PERSONAL HISTORY OF URINARY CALCULI 08/20/2018 LEIGH ANGEL MD, Ot Z87.4 48 PERSONAL HISTORY OF OTHER DISEASES OF UR 08/20/2018 LEIGH ANGEL MD, Ot Z88.8 ALLERGY STATUS TO OTH DRUG/MEDS/BIOL SUB 08/20/2018 LEIGH ANGEL MD, Ot Z90.7 10 ACQUIRED ABSENCE OF BOTH CERVIX AND UTER 08/20/2018 LEIGH ANGEL MD, Ot Z98.5 1 TUBAL LIGATION STATUS 08/20/2018 LEIGH ANGEL MD, Ot Z98.8 90 OTHER SPECIFIED POSTPROCEDURAL STATES 08/22/2018 LEIGH ANGEL MD, Ot F32.9 MAJOR DEPRESSIVE DISORDER, SINGLE EPISOD 08/22/2018 LEIGH ANGEL MD, Ot F41.9 ANXIETY DISORDER, UNSPECIFIED 08/22/2018 LEIGH ANGEL MD, Ot G40.9 09 EPILEPSY, UNSP, NOT INTRACTABLE, WITHOUT 08/22/2018 LEIGH ANGEL MD, Ot G43.9 09 MIGRAINE, UNSP, NOT INTRACTABLE, WITHOUT 08/22/2018 LEIGH ANGEL MD, Ot J44.9 CHRONIC OBSTRUCTIVE PULMONARY DISEASE, U 08/22/2018 LEIGH ANGEL MD, Ot M41.9 SCOLIOSIS, UNSPECIFIED 08/22/2018 LEIGH ANGEL MD, Ot Q05.9 SPINA BIFIDA, UNSPECIFIED 08/22/2018 LEIGH ANGEL MD Ot R10.3 2 LEFT LOWER QUADRANT PAIN 08/22/2018 LEIGH ANGEL MD, Ot Z79.5 1 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 STERO 08/22/2018 LEIGH ANGEL MD, Ot Z79.5 2 ASSISTED (CURRENT) USE OF SYSTEMIC STER 08/22/2018 LEIGH ANGEL MD, Ot Z87.4 42 PERSONAL HISTORY OF URINARY CALCULI 08/22/2018 LEIGH ANGEL MD, Ot Z87.4 48 PERSONAL HISTORY OF OTHER DISEASES OF UR 08/22/2018 LEIGH ANGEL MD, Ot Z88.8 ALLERGY STATUS TO OT DRUG/MEDS/BIOL SUB 08/22/2018 LEIGH ANGEL MD, Ot Z90.7 10 ACQUIRED ABSENCE OF BOTH CERVIX AND UTER 08/22/2018 LEIGH ANGEL MD, Ot Z98.5 1 TUBAL LIGATION STATUS 08/22/2018 LEIGH ANGEL MD, Ot Z98.8 90 OTHER SPECIFIED POSTPROCEDURAL STATES 09/27/2018 LIZZ HERRERA [...] U 09/27/2018 LIZZ HERRERA DO, Ot K21.9 GASTRO-ESOPHAGEAL REFLUX DISEASE WITHOUT 09/27/2018 HERRERA DO, LIZZ Ot M41.9 SCOLIOSIS, UNSPECIFIED 09/27/2018 SHARON BYRNESLIZZ Ot Q05.9 SPINA BIFIDA, UNSPECIFIED 09/27/2018 SHARON BYRNESLIZZ Ot R10.2 PELVIC AND PERINEAL PAIN 09/27/2018 HERRERA LIZZ BYRNES Ot Z87.19 PERSONAL HISTORY OF OTHER DISEASES OF TH 09/27/2018 SHARON BYRNESLIZZ Ot Z87.442 PERSONAL HISTORY OF URINARY CALCULI 09/27/2018 SHARON BYRNESLIZZ Ot Z88.8 ALLERGY STATUS TO OTH DRUG/MEDS/BIOL SUB 09/27/2018 SHARON BYRNESLIZZ Ot Z90.710 ACQUIRED ABSENCE OF BOTH CERVIX AND UTER 09/27/2018 HERRERA LIZZ BYRNES Ot Z98.51 TUBAL LIGATION STATUS 09/27/2018 HERRERA LIZZ BYRNES Ot Z98.890 OTHER SPECIFIED POSTPROCEDURAL STATES 11/08/2018 MAYKEL CUMMINS CUSTOMER SUPPORT SPECIALIST Ot R10.30 LOWER ABDOMINAL PAIN, UNSPECIFIED 11/08/2018 MARIA GMAYKEL Payne CUSTOMER SUPPORT SPECIALIST Ot Z90.49 ACQUIRED ABSENCE OF OTHER SPECIFIED PART 11/22/2018 MAYKEL CUMMINS CUSTOMER SUPPORT SPECIALIST Ot R10.30 LOWER ABDOMINAL PAIN, UNSPECIFIED 11/22/2018 MAYKEL CUMMINS S CUSTOMER SUPPORT SPECIALIST Ot Z90.49 ACQUIRED ABSENCE OF OTHER SPECIFIED PART 11/30/2018 IAN RUELAS DO Ot F32. 9 MAJOR DEPRESSIVE DISORDER, SINGLE EPISOD 11/30/2018 IAN RUELAS DO Ot F41. 9 ANXIETY DISORDER, UNSPECIFIED 11/30/2018 IAN RUELAS DO Ot G40.909 EPILEPSY, UNSP, NOT INTRACTABLE, WITHOUT 11/30/2018 IAN RUELAS DO Ot G43.909 MIGRAINE, UNSP, NOT INTRACTABLE, WITHOUT 11/30/2018 IAN RUELAS DO Ot J44. 9 CHRONIC OBSTRUCTIVE PULMONARY DISEASE, U 11/30/2018 IAN RUELAS DO Ot M54. 5 LOW BACK PAIN 11/30/2018 IAN RUELAS DO Ot M62.830 MUSCLE SPASM OF BACK 11/30/2018 IAN RUELAS DO Ot W19.XXXA UNSPECIFIED FALL, INITIAL ENCOUNTER 11/30/2018 IAN RUELAS DO Ot Z77. 22 CNTCT W AND EXPSR TO ENVIRON TOBACCO SMO 11/30/2018 IAN RUELAS DO Ot Z79. 51 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 STERO 11/30/2018 IAN RUELAS DO Ot Z87.442 PERSONAL HISTORY OF URINARY CALCULI 11/30/2018 IAN RUELAS DO Ot Z88. 8 ALLERGY STATUS TO OTH DRUG/MEDS/BIOL SUB 11/30/2018 IAN RUELAS DO Ot Z90.710 ACQUIRED ABSENCE OF BOTH CERVIX AND UTER 11/30/2018 IAN RUELAS DO Ot Z98. 51 TUBAL LIGATION STATUS 12/06/2018 IAN RUELAS DO Ot F32. 9 MAJOR DEPRESSIVE DISORDER, SINGLE EPISOD 12/06/2018 IAN RUELAS DO Ot F41. 9 ANXIETY DISORDER, UNSPECIFIED 12/06/2018 IAN RUELAS DO Ot G40.909 EPILEPSY, UNSP, NOT INTRACTABLE, WITHOUT 12/06/2018 IAN RUELAS DO Ot G43.909 MIGRAINE, UNSP, NOT INTRACTABLE, WITHOUT 12/06/2018 IAN RUELAS DO Ot J44. 9 CHRONIC OBSTRUCTIVE PULMONARY DISEASE, U 12/06/2018 IAN RUELAS DO Ot M54. 5 LOW BACK PAIN 12/06/2018 IAN RUELAS DO Ot M62.830 MUSCLE SPASM OF BACK 12/06/2018 IAN RUELAS DO Ot W19.XXXA UNSPECIFIED FALL, INITIAL ENCOUNTER 12/06/2018 IAN RUELAS DO Ot Z77. 22 CNTCT W AND EXPSR TO ENVIRON TOBACCO SMO 12/06/2018 IAN RUELAS DO Ot Z79. 51 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 STERO 12/06/2018 IAN RUELAS DO Ot Z87.442 PERSONAL HISTORY OF URINARY CALCULI 12/06/2018 IAN RUELAS DO Ot Z88. 8 ALLERGY STATUS TO OTH DRUG/MEDS/BIOL SUB 12/06/2018 IAN RUELAS DO Ot Z90.710 ACQUIRED ABSENCE OF BOTH CERVIX AND UTER 12/06/2018 IAN RUELAS DO Ot Z98. 51 TUBAL LIGATION STATUS 12/06/2018 IAN RUELAS DO Ot F32. 9 MAJOR DEPRESSIVE DISORDER, SINGLE EPISOD 12/06/2018 IAN RUELAS DO Ot F41. 9 ANXIETY DISORDER, UNSPECIFIED 12/06/2018 IAN RUELAS DO Ot G40.909 EPILEPSY, UNSP, NOT INTRACTABLE, WITHOUT 12/06/2018 IAN RUELAS DO Ot G43.909 MIGRAINE, UNSP, NOT INTRACTABLE, WITHOUT 12/06/2018 IAN RUELAS DO Ot J44. 9 CHRONIC OBSTRUCTIVE PULMONARY DISEASE, U 12/06/2018 IAN RUELAS DO Ot M54. 5 LOW BACK PAIN 12/06/2018 IAN RUELAS DO Ot M62.830 MUSCLE SPASM OF BACK 12/06/2018 IAN RUELAS DO Ot W19.XXXA UNSPECIFIED FALL, INITIAL ENCOUNTER 12/06/2018 IAN RUELAS DO Ot Z77. 22 CNTCT W AND EXPSR TO ENVIRON TOBACCO SMO 12/06/2018 IAN RUELAS DO Ot Z79. 51 ASSISTED (CURRENT) USE OF INHALED STERO 12/06/2018 IAN RUELAS DO Ot Z87.442 PERSONAL HISTORY OF URINARY CALCULI 12/06/2018 IAN RUELAS DO Ot Z88. 8 ALLERGY STATUS TO [facility] DRUG/MEDS/BIOL SUB 12/06/2018 IAN RUELAS DO Ot Z90.710 ACQUIRED ABSENCE OF BOTH CERVIX AND UTER 12/06/2018 IAN RUELAS DO Ot Z98. 51 TUBAL LIGATION STATUS 12/08/2018 IAN RUELAS DO Ot F32. 9 MAJOR DEPRESSIVE DISORDER, SINGLE EPISOD 12/08/2018 IAN RUELAS DO Ot F41. 9 ANXIETY DISORDER, UNSPECIFIED 12/08/2018 IAN RUELAS DO Ot G40.909 EPILEPSY, UNSP, NOT INTRACTABLE, WITHOUT 12/08/2018 IAN RUELAS DO Ot G43.909 MIGRAINE, UNSP, NOT INTRACTABLE, WITHOUT 12/08/2018 IAN RUELAS DO Ot J44. 9 CHRONIC OBSTRUCTIVE PULMONARY DISEASE, U 12/08/2018 IAN RUELAS DO Ot M54. 5 LOW BACK PAIN 12/08/2018 IAN RUELAS DO Ot M62.830 MUSCLE SPASM OF BACK 12/08/2018 IAN RUELAS DO Ot W19.XXXA UNSPECIFIED FALL, INITIAL ENCOUNTER 12/08/2018 IAN RUELAS DO Ot Z77. 22 CNTCT W AND EXPSR TO ENVIRON TOBACCO SMO 12/08/2018 IAN RUELAS DO Ot Z79. 51 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 STERO 12/08/2018 IAN RUELAS DO Ot Z87.442 PERSONAL HISTORY OF URINARY CALCULI 12/08/2018 IAN RUELAS DO Ot Z88. 8 ALLERGY STATUS TO OTH DRUG/MEDS/BIOL SUB 12/08/2018 IAN RUELAS DO Ot Z90.710 ACQUIRED ABSENCE OF BOTH CERVIX AND UTER 12/08/2018 IAN RUELAS DO Ot Z98. 51 TUBAL LIGATION STATUS 01/08/2019 LEIGH ANGEL MD Ot F32.9 MAJOR DEPRESSIVE DISORDER, SINGLE EPISOD 01/08/2019 LEIGH ANGEL MD Ot F41.9 ANXIETY DISORDER, UNSPECIFIED 01/08/2019 LEIGH ANGEL MD Ot G40.9 09 EPILEPSY, UNSP, NOT INTRACTABLE, WITHOUT 01/08/2019 LEIGH ANGEL MD Ot G43.9 09 MIGRAINE, UNSP, NOT INTRACTABLE, WITHOUT 01/08/2019 LEIGH ANGEL MD Ot H66.4 3 SUPPURATIVE OTITIS MEDIA, UNSPECIFIED, B 01/08/2019 LEIGH ANGEL MD Ot H92.0 3 OTALGIA, BILATERAL 01/08/2019 LEIGH ANGEL MD Ot J01.9 1 ACUTE RECURRENT SINUSITIS, UNSPECIFIED 01/08/2019 LEIGH ANGEL MD Ot J44.9 CHRONIC OBSTRUCTIVE PULMONARY DISEASE, U 01/08/2019 LEIGH ANGEL MD Ot K21.9 GASTRO-ESOPHAGEAL REFLUX DISEASE WITHOUT 01/08/2019 LEIGH ANGEL MD Ot Z77.2 2 CNTCT W AND EXPSR TO ENVIRON TOBACCO SMO 01/08/2019 LEIGH ANGEL MD Ot Z79.5 2 ASSISTED (CURRENT) USE OF SYSTEMIC STER 01/08/2019 LEIGH ANGEL MD Ot Z87.1 9 PERSONAL HISTORY OF OTHER DISEASES OF TH 01/08/2019 LEIGH ANGEL MD Ot Z88.8 ALLERGY STATUS TO OTH DRUG/MEDS/BIOL SUB 01/08/2019 LEIGH ANGEL MD Ot Z90.7 10 ACQUIRED ABSENCE OF BOTH CERVIX AND UTER 01/08/2019 LEIGH ANGEL MD Ot Z96.2 2 MYRINGOTOMY TUBE(S) STATUS 01/08/2019 LEIGH ANGEL MD Ot Z98.5 1 TUBAL LIGATION STATUS 01/11/2019 LEIGH ANGEL MD Ot F32.9 MAJOR DEPRESSIVE DISORDER, SINGLE EPISOD 01/11/2019 LEIGH ANGEL MD Ot F41.9 ANXIETY DISORDER, UNSPECIFIED 01/11/2019 LEIGH ANGEL MD Ot G40.9 09 EPILEPSY, UNSP, NOT INTRACTABLE, WITHOUT 01/11/2019 LEIGH ANGEL MD Ot G43.9 09 MIGRAINE, UNSP, NOT INTRACTABLE, WITHOUT 01/11/2019 LEIGH ANGEL MD Ot H66.4 3 SUPPURATIVE OTITIS MEDIA, UNSPECIFIED, B 01/11/2019 LEIGH ANGEL MD Ot H92.0 3 OTALGIA, BILATERAL 01/11/2019 LEIGH ANGEL MD Ot J01.9 1 ACUTE RECURRENT SINUSITIS, UNSPECIFIED 01/11/2019 LEIGH ANGEL MD, Ot J44.9 CHRONIC OBSTRUCTIVE PULMONARY DISEASE, U 01/11/2019 LEIGH ANGEL MD Ot K21.9 GASTRO-ESOPHAGEAL REFLUX DISEASE WITHOUT 01/11/2019 LEIGH ANGEL MD Ot Z77.2 2 CNTCT W AND EXPSR TO ENVIRON TOBACCO SMO 01/11/2019 LEIGH ANGEL MD Ot Z79.5 2 ASSISTED (CURRENT) USE OF SYSTEMIC STER 01/11/2019 LEIGH ANGEL MD, Ot Z87.1 9 PERSONAL HISTORY OF OTHER DISEASES OF TH 01/11/2019 LEIGH ANGEL MD, Ot Z88.8 ALLERGY STATUS TO OTH DRUG/MEDS/BIOL SUB 01/11/2019 LEIGH ANGEL MD Ot Z90.7 10 ACQUIRED ABSENCE OF BOTH CERVIX AND UTER 01/11/2019 LEIGH ANGEL MD, Ot Z96.2 2 MYRINGOTOMY TUBE(S) STATUS 01/11/2019 LEIGH ANGEL MD Ot Z98.5 1 TUBAL LIGATION STATUS 01/15/2019 LEIGH ANGEL MD Ot E87.6 HYPOKALEMIA 01/15/2019 LEIGH ANGEL MD Ot F17.2 10 NICOTINE DEPENDENCE, CIGARETTES, UNCOMPL 01/15/2019 LEIGH ANGEL MD, Ot F32.9 MAJOR DEPRESSIVE DISORDER, SINGLE EPISOD 01/15/2019 LEIGH ANGEL MD Ot F41.9 ANXIETY DISORDER, UNSPECIFIED 01/15/2019 LEIGH ANGEL MD Ot G40.9 09 EPILEPSY, UNSP, NOT INTRACTABLE, WITHOUT 01/15/2019 LEIGH ANGEL MD, Ot G43.9 09 MIGRAINE, UNSP, NOT INTRACTABLE, WITHOUT 01/15/2019 LEIGH ANGEL MD, Ot I10 ESSENTIAL (PRIMARY) HYPERTENSION 01/15/2019 LEIGH ANGEL MD, Ot J44.9 CHRONIC OBSTRUCTIVE PULMONARY DISEASE, U 01/15/2019 LEIGH ANGEL MD, Ot K21.9 GASTRO-ESOPHAGEAL REFLUX DISEASE WITHOUT 01/15/2019 LEIGH ANGEL MD, Ot K22.4 DYSKINESIA OF ESOPHAGUS 01/15/2019 LEIGH ANGEL MD, Ot R07.8 9 OTHER CHEST PAIN 01/15/2019 LEIGH ANGEL MD, Ot Z87.4 42 PERSONAL HISTORY OF URINARY CALCULI 01/15/2019 LEIGH ANGEL MD, Ot Z88.8 ALLERGY STATUS TO OT DRUG/MEDS/BIOL SUB 01/15/2019 LEIGH ANGEL MD, Ot Z90.7 10 ACQUIRED ABSENCE OF BOTH CERVIX AND UTER 01/15/2019 LEIGH ANGEL MD, Ot Z98.5 1 TUBAL LIGATION STATUS 01/17/2019 LEIGH ANGEL MD, Ot F32.9 MAJOR DEPRESSIVE DISORDER, SINGLE EPISOD 01/17/2019 LEIGH ANGEL MD, Ot F41.9 ANXIETY DISORDER, UNSPECIFIED 01/17/2019 LEIGH ANGEL MD, Ot G40.9 09 EPILEPSY, UNSP, NOT INTRACTABLE, WITHOUT 01/17/2019 LEIGH ANGEL MD, Ot G43.9 09 MIGRAINE, UNSP, NOT INTRACTABLE, WITHOUT 01/17/2019 LEIGH ANGEL MD, Ot H66.4 3 SUPPURATIVE OTITIS MEDIA, UNSPECIFIED, B 01/17/2019 LEIGH ANGEL MD, Ot H92.0 3 OTALGIA, BILATERAL 01/17/2019 LEIGH ANGEL MD, Ot J01.9 1 ACUTE RECURRENT SINUSITIS, UNSPECIFIED 01/17/2019 LEIGH ANGEL MD, Ot J44.9 CHRONIC OBSTRUCTIVE PULMONARY DISEASE, U 01/17/2019 ELIGH ANGEL MD, Ot K21.9 GASTRO-ESOPHAGEAL REFLUX DISEASE WITHOUT 01/17/2019 LEIGH ANGEL MD, Ot Z77.2 2 CNTCT W AND EXPSR TO ENVIRON TOBACCO SMO 01/17/2019 LEIGH ANGEL MD, Ot Z79.5 2 DONOR FLOOR 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 OF SYSTEMIC STER 01/17/2019 LEIGH ANGEL MD, Ot Z87.1 9 PERSONAL HISTORY OF OTHER DISEASES OF TH 01/17/2019 LEIGH ANGEL MD, Ot Z88.8 ALLERGY STATUS TO OTH DRUG/MEDS/BIOL SUB 01/17/2019 LEIGH ANGEL MD, Ot Z90.7 10 ACQUIRED ABSENCE OF BOTH CERVIX AND UTER 01/17/2019 LEIGH ANGEL MD, Ot Z96.2 2 MYRINGOTOMY TUBE(S) STATUS 01/17/2019 LEIGH ANGEL MD, Ot Z98.5 1 TUBAL LIGATION STATUS 01/18/2019 LEIGH ANGEL MD, Ot E87.6 HYPOKALEMIA 01/18/2019 LEIGH ANGEL MD, Ot F17.2 10 NICOTINE DEPENDENCE, CIGARETTES, UNCOMPL 01/18/2019 LEIGH ANGEL MD, Ot F32.9 MAJOR DEPRESSIVE DISORDER, SINGLE EPISOD 01/18/2019 LEIGH ANGEL MD, Ot F41.9 ANXIETY DISORDER, UNSPECIFIED 01/18/2019 LEIGH ANGEL MD, Ot G40.9 09 EPILEPSY, UNSP, NOT INTRACTABLE, WITHOUT 01/18/2019 LEIGH ANGEL MD, Ot G43.9 09 MIGRAINE, UNSP, NOT INTRACTABLE, WITHOUT 01/18/2019 LEIGH ANGEL MD, Ot I10 ESSENTIAL (PRIMARY) HYPERTENSION 01/18/2019 LEIGH ANGEL MD, Ot J44.9 CHRONIC OBSTRUCTIVE PULMONARY DISEASE, U 01/18/2019 LEIGH ANGEL MD, Ot K21.9 GASTRO-ESOPHAGEAL REFLUX DISEASE WITHOUT 01/18/2019 LEIGH ANGEL MD, Ot K22.4 DYSKINESIA OF ESOPHAGUS 01/18/2019 LEIGH ANGEL MD, Ot R07.8 9 OTHER CHEST PAIN 01/18/2019 LEIGH ANGEL MD, Ot Z87.4 42 PERSONAL HISTORY OF URINARY CALCULI 01/18/2019 LEIGH ANGEL MD, Ot Z88.8 ALLERGY STATUS TO OTH DRUG/MEDS/BIOL SUB 01/18/2019 LEIGH ANGEL MD, Ot Z90.7 10 ACQUIRED ABSENCE OF BOTH CERVIX AND UTER 01/18/2019 LEIGH ANGEL MD, Ot Z98.5 1 TUBAL LIGATION STATUS 01/27/2019 SAFIA VENEGAS, AMBROCIO Jones Ot F17.210 NICOTINE DEPENDENCE, CIGARETTES, UNCOMPL 01/27/2019 SAFIA VENEGAS, AMBROCIO Jones Ot F32.9 MAJOR DEPRESSIVE DISORDER, SINGLE EPISOD 01/27/2019 SAFIA VENEGAS, AMBROCIO Jones Ot F41.9 ANXIETY DISORDER, UNSPECIFIED 01/27/2019 SAFIA VENEGAS, AMBROCIO Jones Ot G40.909 EPILEPSY, UNSP, NOT INTRACTABLE, WITHOUT 01/27/2019 SAFIA VENEGAS, AMBROCIO Jones Ot H92.02 OTALGIA, LEFT EAR 01/27/2019 AMBROCIO BAIG MD Ot I10 ESSENTIAL (PRIMARY) HYPERTENSION 01/27/2019 SAFIA VENEGAS, AMBROCIO Jones Ot J44.9 CHRONIC OBSTRUCTIVE PULMONARY DISEASE, U 01/27/2019 AMBROCIO BAIG MD Ot K21.9 GASTRO-ESOPHAGEAL REFLUX DISEASE WITHOUT 01/27/2019 AMBROCIO BAIG MD Ot K76.0 FATTY (CHANGE OF) LIVER, NOT ELSEWHERE C 01/27/2019 SAFIA VENEGAS, AMBROCIO Jones Ot K92.2 GASTROINTESTINAL HEMORRHAGE, UNSPECIFIED 01/31/2019 DANY RIVERA APRN Ot D64 .9 ANEMIA, UNSPECIFIED 02/06/2019 SANTINO CUNNINGHAM DO Ot F17.210 NICOTINE DEPENDENCE, CIGARETTES, UNCOMPL 02/06/2019 SANTINO CUNNINGHAM DO Ot F32 .9 MAJOR DEPRESSIVE DISORDER, SINGLE EPISOD 02/06/2019 SANTINO CUNNINGHAM DO Ot F41 .9 ANXIETY DISORDER, UNSPECIFIED 02/06/2019 SANTINO CUNNINGHAM DO Ot G40.909 EPILEPSY, UNSP, NOT INTRACTABLE, WITHOUT 02/06/2019 SANTINO CUNNINGHAM DO Ot G43.909 MIGRAINE, UNSP, NOT INTRACTABLE, WITHOUT 02/06/2019 SANTINO CUNNINGHAM DO Ot I10 ESSENTIAL (PRIMARY) HYPERTENSION 02/06/2019 SANTINO CUNNINGHAM DO Ot J44 .9 CHRONIC OBSTRUCTIVE PULMONARY DISEASE, U 02/06/2019 SANTINO CUNNINGHAM DO Ot K21 .9 GASTRO-ESOPHAGEAL REFLUX DISEASE WITHOUT 02/06/2019 SANTINO CUNNINGHAM DO Ot R10.31 RIGHT LOWER QUADRANT PAIN 02/06/2019 SANTINO CUNNINGHAM DO Ot R10.32 LEFT LOWER QUADRANT PAIN 02/06/2019 MARISA BYRNES SANTINO Carly Ot R10.33 PERIUMBILICAL PAIN 02/06/2019 MARISA BYRNES SANTINO Carroll Ot Z79.52 ASSISTED (CURRENT) USE OF SYSTEMIC STER 02/06/2019 MARISA BYRNES SANTINO Carly Ot Z87.19 PERSONAL HISTORY OF OTHER DISEASES OF TH 02/06/2019 SANTINO CUNNINGHAM DO Carly Ot Z87.442 PERSONAL HISTORY OF URINARY CALCULI 02/06/2019 MARISA BYRNES SANTINO Carly Ot Z88 .8 ALLERGY STATUS TO [facility] DRUG/MEDS/BIOL SUB 02/06/2019 MARISA BYRNES SANTINO Carly Ot Z90.710 ACQUIRED ABSENCE OF BOTH CERVIX AND UTER 02/06/2019 MARISA BYRNES SANTINO Carly Ot Z98.51 TUBAL LIGATION STATUS 02/06/2019 MARISA BYRNES SANTINO Carly Ot Z98.890 OTHER SPECIFIED POSTPROCEDURAL STATES 02/10/2019 JENIFER GONZALES MD, Ot F32. 9 MAJOR DEPRESSIVE DISORDER, SINGLE EPISOD 02/10/2019 JENIFER GONZALES MD, Ot F41. 9 ANXIETY DISORDER, UNSPECIFIED 02/10/2019 JENIFER GONZALES MD, Ot G40.909 EPILEPSY, UNSP, NOT INTRACTABLE, WITHOUT 02/10/2019 JENIFER GONZALES MD, Ot G43.909 MIGRAINE, UNSP, NOT INTRACTABLE, WITHOUT 02/10/2019 JENIFER GONZALES MD, Ot G89. 29 OTHER CHRONIC PAIN 02/10/2019 JENIFER GONZALES MD Ot I10 ESSENTIAL (PRIMARY) HYPERTENSION 02/10/2019 JENIFER GONZALES MD, Ot J44. 9 CHRONIC OBSTRUCTIVE PULMONARY DISEASE, U 02/10/2019 JENIFER GONZALES MD, Ot K21. 9 GASTRO-ESOPHAGEAL REFLUX DISEASE WITHOUT 02/10/2019 JENIFER GONZALES MD, Ot K52. 9 NONINFECTIVE GASTROENTERITIS AND COLITIS 02/10/2019 JENIFER GONZALES MD, Ot R10. 9 UNSPECIFIED ABDOMINAL PAIN 02/10/2019 JENIFER GONZALES MD, Ot Z79. 51 ASSISTED (CURRENT) USE OF INHALED STERO 02/10/2019 JENIFER GONZALES MD, Ot Z87. 19 PERSONAL HISTORY OF OTHER DISEASES OF 02/10/2019 JENIFER GONZALES MD, Ot Z87.442 PERSONAL HISTORY OF URINARY CALCULI 02/10/2019 JENIFER GONZALES MD, Ot Z88. 8 ALLERGY STATUS TO [facility] DRUG/MEDS/BIOL SUB 02/10/2019 JENIFER GONZALES MD, Ot Z90. 49 ACQUIRED ABSENCE OF OTHER SPECIFIED PART 02/10/2019 JENIFER GONZALES MD, Ot Z90.710 ACQUIRED ABSENCE OF BOTH CERVIX AND UTER 02/10/2019 JENIFER GONZALES MD, Ot Z98. 51 TUBAL LIGATION STATUS 02/10/2019 JENIFER GONZALES MD, Ot Z98.890 OTHER SPECIFIED POSTPROCEDURAL STATES 02/13/2019 JENIFER GONZALES MD, Ot F32. 9 MAJOR DEPRESSIVE DISORDER, SINGLE EPISOD 02/13/2019 JENIFER GONZALES MD, Ot F41. 9 ANXIETY DISORDER, UNSPECIFIED 02/13/2019 JENIFER GONZALES MD, Ot G40.909 EPILEPSY, UNSP, NOT INTRACTABLE, WITHOUT 02/13/2019 JENIFER GONZALES MD, Ot G43.909 MIGRAINE, UNSP, NOT INTRACTABLE, WITHOUT 02/13/2019 JENIFER GONZALES MD, Ot G89. 29 OTHER CHRONIC PAIN 02/13/2019 JENIFER GONZALES MD, Ot I10 ESSENTIAL (PRIMARY) HYPERTENSION 02/13/2019 JENIFER GONZALES MD, Ot J44. 9 CHRONIC OBSTRUCTIVE PULMONARY DISEASE, U 02/13/2019 JENIFER GONZALES MD, Ot K21. 9 GASTRO-ESOPHAGEAL REFLUX DISEASE WITHOUT 02/13/2019 JENIFER GONZALES MD, Ot K52. 9 NONINFECTIVE GASTROENTERITIS AND COLITIS 02/13/2019 JENIFER GONZALES MD, Ot R10. 9 UNSPECIFIED ABDOMINAL PAIN 02/13/2019 JENIFER GONZALES MD, Ot Z79. 51 ASSISTED (CURRENT) USE OF INHALED STERO 02/13/2019 JENIFER GONZALES MD, Ot Z87. 19 PERSONAL HISTORY OF OTHER DISEASES OF TH 02/13/2019 JENIFER GONZALES MD, Ot Z87.442 PERSONAL HISTORY OF URINARY CALCULI 02/13/2019 JENIFER GONZALES MD, Ot Z88. 8 ALLERGY STATUS TO OTH DRUG/MEDS/BIOL SUB 02/13/2019 JENIFER GONZALES MD, Ot Z90. 49 ACQUIRED ABSENCE OF OTHER SPECIFIED PART 02/13/2019 JENIFER GONZALES MD, Ot Z90.710 ACQUIRED ABSENCE OF BOTH CERVIX AND UTER 02/13/2019 JENIFER GONZALES MD, Ot Z98. 51 TUBAL LIGATION STATUS 02/13/2019 JENIFER GONZALES MD, Ot Z98.890 OTHER SPECIFIED POSTPROCEDURAL STATES 02/16/2019 JENIFER GONZALES MD, Ot F32. 9 MAJOR DEPRESSIVE DISORDER, SINGLE EPISOD 02/16/2019 JENIFER GONZALES MD, Ot F41. 9 ANXIETY DISORDER, UNSPECIFIED 02/16/2019 JENIFER GONZALES MD, Ot G40.909 EPILEPSY, UNSP, NOT INTRACTABLE, WITHOUT 02/16/2019 JENIFER GONZALES MD, Ot G43.909 MIGRAINE, UNSP, NOT INTRACTABLE, WITHOUT 02/16/2019 JENIFER GONZALES MD, Ot G89. 29 OTHER CHRONIC PAIN 02/16/2019 JENIFER GONZALES MD, Ot I10 ESSENTIAL (PRIMARY) HYPERTENSION 02/16/2019 JENIFER GONZALES MD, Ot J44. 9 CHRONIC OBSTRUCTIVE PULMONARY DISEASE, U 02/16/2019 JENIFER GONZALES MD, Ot K21. 9 GASTRO-ESOPHAGEAL REFLUX DISEASE WITHOUT 02/16/2019 JENIFER GONZALES MD, Ot K52. 9 NONINFECTIVE GASTROENTERITIS AND COLITIS 02/16/2019 JENIFER GONZALES MD, Ot R10. 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 19 PERSONAL HISTORY OF OTHER DISEASES OF TH 02/16/2019 JENIFER GONZALES MD, Ot Z87.442 PERSONAL HISTORY OF URINARY CALCULI 02/16/2019 JENIFER GONZALES MD, Ot Z88. 8 ALLERGY STATUS TO OT DRUG/MEDS/BIOL SUB 02/16/2019 JENIFER GONZALES MD, Ot Z90. 49 ACQUIRED ABSENCE OF OTHER SPECIFIED PART 02/16/2019 JENIFER GONZALES MD, Ot Z90.710 ACQUIRED ABSENCE OF BOTH CERVIX AND UTER 02/16/2019 JENIFER GONZALES MD, Ot Z98. 51 TUBAL LIGATION STATUS 02/16/2019 JENIFER GONZALES MD, Ot Z98.890 OTHER SPECIFIED POSTPROCEDURAL STATES 02/18/2019 STANLEY VENEGAS, LEIGH Payne Ot E87.6 HYPOKALEMIA 02/18/2019 LEIGH ANGEL MD, Ot F32.9 MAJOR DEPRESSIVE DISORDER, SINGLE EPISOD 02/18/2019 LEIGH ANGEL MD, Ot F41.9 ANXIETY DISORDER, UNSPECIFIED 02/18/2019 LEIGH ANGEL MD, Ot G40.9 09 EPILEPSY, UNSP, NOT INTRACTABLE, WITHOUT 02/18/2019 LEIGH ANGEL MD, Ot G43.9 09 MIGRAINE, UNSP, NOT INTRACTABLE, WITHOUT 02/18/2019 LEIGH ANGEL MD, Ot I10 ESSENTIAL (PRIMARY) HYPERTENSION 02/18/2019 LEIGH ANGEL MD, Ot J44.9 CHRONIC OBSTRUCTIVE PULMONARY DISEASE, U 02/18/2019 LEIGH ANGEL MD, Ot K21.0 GASTRO-ESOPHAGEAL REFLUX DISEASE WITH ES 02/18/2019 LEIGH ANGEL MD, Ot R10.3 2 LEFT LOWER QUADRANT PAIN 02/18/2019 LEIGH ANGEL MD, Ot Z79.5 2 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 01 MORBID (SEVERE) OBESITY DUE TO EXCESS CA 02/26/2019 RAN CANTRELL DO Ot F17.210 NICOTINE DEPENDENCE, CIGARETTES, UNCOMPL 02/26/2019 RAN CANTRELL DO Ot F41. 8 OTHER SPECIFIED ANXIETY DISORDERS 02/26/2019 RAN CANTRELL DO Ot I10 ESSENTIAL (PRIMARY) HYPERTENSION 02/26/2019 RAN CANTRELL DO Ot J44. 9 CHRONIC OBSTRUCTIVE PULMONARY DISEASE, U 02/26/2019 RAN CANTRELL DO Ot K21. 9 GASTRO-ESOPHAGEAL REFLUX DISEASE WITHOUT 02/26/2019 RAN CANTRELL DO Ot K31. 89 OTHER DISEASES OF STOMACH AND DUODENUM 02/26/2019 RAN CANTRELL DO Ot K44. 9 DIAPHRAGMATIC HERNIA WITHOUT OBSTRUCTION 02/26/2019 RAN CANTRELL DO Ot K92. 1 MELENA 02/26/2019 RAN CANTRELL DO Ot Q05. 9 SPINA BIFIDA, UNSPECIFIED 02/26/2019 RAN CANTRELL DO Ot Z68. 42 BODY MASS INDEX (BMI) 45.0-49.9, ADULT 02/26/2019 RAN CANTRELL DO Ot Z79.899 OTHER ASSISTED (CURRENT) DRUG THERAPY 02/26/2019 RAN CANTRELL DO Ot Z82. 49 FAMILY HX OF ISCHEM HEART DIS AND OTH DI 02/26/2019 RAN CANTRELL DO Ot Z83. 6 FAMILY HISTORY OF OTHER DISEASES OF THE 02/26/2019 RAN CANTRELL DO Ot Z88. 8 ALLERGY STATUS TO [facility] DRUG/MEDS/BIOL SUB 02/26/2019 RAN CANTRELL DO Ot Z90. 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 01 MORBID (SEVERE) OBESITY DUE TO EXCESS CA 03/12/2019 RAN CANTRELL DO Ot F17.210 NICOTINE DEPENDENCE, CIGARETTES, UNCOMPL 03/12/2019 RAN CANTRELL DO Ot F41. 8 OTHER SPECIFIED ANXIETY DISORDERS 03/12/2019 RAN CANTRELL DO Ot I10 ESSENTIAL (PRIMARY) HYPERTENSION 03/12/2019 RAN CANTRELL DO Ot J44. 9 CHRONIC OBSTRUCTIVE PULMONARY DISEASE, U 03/12/2019 RAN CANTRELL DO Ot K21. 9 GASTRO-ESOPHAGEAL REFLUX DISEASE WITHOUT 03/12/2019 RAN CANTRELL DO Ot K31. 89 OTHER DISEASES OF STOMACH AND DUODENUM 03/12/2019 RAN CANTRELL DO Ot K44. 9 DIAPHRAGMATIC HERNIA WITHOUT OBSTRUCTION 03/12/2019 RAN CANTRELL DO Ot K92. 1 MELENA 03/12/2019 RAN CANTRELL DO Ot Q05. 9 SPINA BIFIDA, UNSPECIFIED 03/12/2019 RAN CANTRELL DO Ot Z68. 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 49 FAMILY HX OF ISCHEM HEART DIS AND OTH DI 03/12/2019 RAN CANTRELL DO Ot Z83. 6 FAMILY HISTORY OF OTHER DISEASES OF THE 03/12/2019 RAN CANTRELL DO Ot Z88. 8 ALLERGY STATUS TO [facility]TH DRUG/MEDS/BIOL SUB 03/12/2019 RAN CANTRELL DO Ot Z90. 49 ACQUIRED ABSENCE OF OTHER SPECIFIED PART 03/12/2019 RAN CANTRLEL DO Ot Z90.710 ACQUIRED ABSENCE OF BOTH CERVIX AND UTER 05/16/2019 ANN BLANCHARD MD Ot F32. 9 MAJOR DEPRESSIVE DISORDER, SINGLE EPISOD 05/16/2019 ANN BLANCHARD MD Ot F41. 9 ANXIETY DISORDER, UNSPECIFIED 05/16/2019 ANN BLANCHARD MD Ot G40.909 EPILEPSY, UNSP, NOT INTRACTABLE, WITHOUT 05/16/2019 ANN BLANCHARD MD Ot G43.909 MIGRAINE, UNSP, NOT INTRACTABLE, WITHOUT 05/16/2019 ANN BLANCHARD MD Ot J44. 9 CHRONIC OBSTRUCTIVE PULMONARY DISEASE, U 05/16/2019 ANN BLANCHARD MD Ot K21. 9 GASTRO-ESOPHAGEAL REFLUX DISEASE WITHOUT 05/16/2019 ANN BLANCHARD MD Ot R10. 30 LOWER ABDOMINAL PAIN, UNSPECIFIED 05/16/2019 ANN BLANCHARD MD Ot Z79. 51 ASSISTED (CURRENT) USE OF INHALED STERO 05/16/2019 ANN BLANCHARD MD Ot Z87.442 PERSONAL HISTORY OF URINARY CALCULI 05/16/2019 ANN BLANCHARD MD Ot Z88. 8 ALLERGY STATUS TO [facility]TH DRUG/MEDS/BIOL SUB 05/16/2019 ANN BLANCHARD MD Ot Z90.710 ACQUIRED ABSENCE OF BOTH CERVIX AND UTER 05/16/2019 ANN BLANCHARD MD Ot Z98. 51 TUBAL LIGATION STATUS 05/20/2019 BIA JIMENEZ MD Ot Z01.818 ENCOUNTER FOR OTHER PREPROCEDURAL EXAMIN 05/21/2019 ANN BLANCHARD MD Ot F32. 9 MAJOR DEPRESSIVE DISORDER, SINGLE EPISOD 05/21/2019 ANN BLANCHARD MD Ot F41. 9 ANXIETY DISORDER, UNSPECIFIED 05/21/2019 ANN BLANCHARD MD A Ot G40.909 EPILEPSY, UNSP, NOT INTRACTABLE, WITHOUT 05/21/2019 ANN BLANCHARD MD A Ot G43.909 MIGRAINE, UNSP, NOT INTRACTABLE, WITHOUT 05/21/2019 ANN BLANCHARD MD Ot J44. 9 CHRONIC OBSTRUCTIVE PULMONARY DISEASE, U 05/21/2019 ANN BLANCHARD MD Ot K21. 9 GASTRO-ESOPHAGEAL REFLUX DISEASE WITHOUT 05/21/2019 ANN BLANCHARD MD Ot R10. 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 8 ALLERGY STATUS TO [facility]TH DRUG/MEDS/BIOL SUB 05/21/2019 ANN BLANCHARD MD Ot Z90.710 ACQUIRED ABSENCE OF BOTH CERVIX AND UTER 05/21/2019 ANN BLANCHARD MD Ot Z98. 51 TUBAL LIGATION STATUS 05/26/2019 BIA JIMENEZ MD Ot Z01.818 ENCOUNTER FOR OTHER PREPROCEDURAL EXAMIN 05/29/2019 BIA JIMENEZ MD Ot F17.210 NICOTINE DEPENDENCE, CIGARETTES, UNCOMPL 05/29/2019 BIA JIMENEZ MD Ot F32 .9 MAJOR DEPRESSIVE DISORDER, SINGLE EPISOD 05/29/2019 BIA JIMENEZ MD Ot G43.909 MIGRAINE, UNSP, NOT INTRACTABLE, WITHOUT 05/29/2019 BIA JIMENEZ MD Ot H65.93 UNSPECIFIED NONSUPPURATIVE OTITIS MEDIA, 05/29/2019 BIA JIMENEZ MD Ot H69.93 UNSPECIFIED EUSTACHIAN TUBE DISORDER, BI 05/29/2019 BIA JIMENEZ MD Ot I10 ESSENTIAL (PRIMARY) HYPERTENSION 05/29/2019 BIA JIMENEZ MD, Ot J44 .9 CHRONIC OBSTRUCTIVE PULMONARY DISEASE, U 05/29/2019 BIA JIMENEZ MD, Ot K21 .9 GASTRO-ESOPHAGEAL REFLUX DISEASE WITHOUT 05/29/2019 BIA JIMENEZ MD, Ot M41 .9 SCOLIOSIS, UNSPECIFIED 05/29/2019 BIA JIMENEZ MD, Ot Q05 .9 SPINA BIFIDA, UNSPECIFIED 05/29/2019 BIA JIMENEZ MD, Ot T85.698[facility] COMPL OF INTERNAL PROSTH DEV/GRFT, 05/29/2019 BIA JIMENEZ MD, Ot Z88 .8 ALLERGY STATUS TO [facility] DRUG/MEDS/BIOL SUB 05/29/2019 BIA JIMENEZ MD, Ot Z90.49 ACQUIRED ABSENCE OF OTHER SPECIFIED PART 05/29/2019 BIA JIMENEZ MD, Ot Z90.710 ACQUIRED ABSENCE OF BOTH CERVIX AND UTER 06/10/2019 DEFFENBAUGH DO, JUVENTINO D Ot E04.1 NONTOXIC SINGLE THYROID NODULE 06/10/2019 DEFFENBAUGH DO JUVENTINO D Ot K92.2 GASTROINTESTINAL HEMORRHAGE, UNSPECIFIED 06/10/2019 DEFFENBAUGH DO, JUVENTINO D Ot R10.9 UNSPECIFIED ABDOMINAL PAIN 06/10/2019 DEFFENBAUGH DO, JUVENTINO D Ot R19.7 DIARRHEA, UNSPECIFIED 06/10/2019 DEFFENBAUGH DO, JUVENTINO D Ot R19.8 OTH SYMPTOMS AND SIGNS INVOLVING THE DGS 06/26/2019 DEFFENBAUGH DO, JUVENTINO D Ot E04.1 NONTOXIC SINGLE THYROID NODULE 06/26/2019 DEFFENBAUGH DO, JUVENTINO D Ot K92.2 GASTROINTESTINAL HEMORRHAGE, UNSPECIFIED 06/26/2019 DEFFENBAUGH DO, JUVENTINO D Ot R10.9 UNSPECIFIED ABDOMINAL PAIN 06/26/2019 DEFFENBAUGH DO, JUVENTINO D Ot R19.7 DIARRHEA, UNSPECIFIED 06/26/2019 DEFFENBAUGH DO, JUVENTINO D Ot R19.8 OTH SYMPTOMS AND SIGNS INVOLVING THE DGS 06/27/2019 LEIGH ANGEL MD, Ot F17.2 10 NICOTINE DEPENDENCE, CIGARETTES, UNCOMPL 06/27/2019 LEIGH ANGEL MD, Ot F32.9 MAJOR DEPRESSIVE DISORDER, SINGLE EPISOD 06/27/2019 LEIGH ANGEL MD, Ot F41.9 ANXIETY DISORDER, UNSPECIFIED 06/27/2019 LEIGH ANGEL MD, Ot G40.9 09 EPILEPSY, UNSP, NOT INTRACTABLE, WITHOUT 06/27/2019 LEIGH ANGEL MD, Ot I10 ESSENTIAL (PRIMARY) HYPERTENSION 06/27/2019 LEIGH ANGEL MD, Ot J44.9 CHRONIC OBSTRUCTIVE PULMONARY DISEASE, U 06/27/2019 LEIGH ANGEL MD, Ot K21.9 GASTRO-ESOPHAGEAL REFLUX DISEASE WITHOUT 06/27/2019 LEIGH ANGEL MD Ot M54.1 4 RADICULOPATHY, THORACIC REGION 06/27/2019 LEIGH ANGEL MD, Ot M54.5 LOW BACK PAIN 06/27/2019 LEIGH ANGEL MD, Ot S29.019A STRAIN OF MUSCLE AND TENDON OF UNSP WALL 06/27/2019 LEIGH ANGEL MD, Ot S39.011A STRAIN OF MUSCLE, FASCIA AND TENDON OF A 06/27/2019 LEIGH ANGEL MD, Ot S39.012A STRAIN OF MUSCLE, FASCIA AND TENDON OF L 06/27/2019 LEIGH ANGEL MD, Ot X58.XXXA EXPOSURE TO OTHER SPECIFIED FACTORS, INI 06/27/2019 LEIGH ANGEL MD, Ot Z79.5 1 ASSISTED (CURRENT) USE OF INHALED STERO 06/27/2019 LEIGH ANGEL MD, Ot Z79.5 2 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 OF SYSTEMIC STER 06/27/2019 LEIGH ANGEL MD, Ot Z88.8 ALLERGY STATUS TO [facility]TH DRUG/MEDS/BIOL SUB 07/05/2019 LEIGH ANGEL MD, Ot F17.2 10 NICOTINE DEPENDENCE, CIGARETTES, UNCOMPL 07/05/2019 LEIGH ANGEL MD, Ot F32.9 MAJOR DEPRESSIVE DISORDER, SINGLE EPISOD 07/05/2019 LEIGH ANGEL MD, Ot F41.9 ANXIETY DISORDER, UNSPECIFIED 07/05/2019 LEIGH ANGEL MD, Ot G40.9 09 EPILEPSY, UNSP, NOT INTRACTABLE, WITHOUT 07/05/2019 LEIGH ANGEL MD, Ot I10 ESSENTIAL (PRIMARY) HYPERTENSION 07/05/2019 LEIGH ANGEL MD, Ot J44.9 CHRONIC OBSTRUCTIVE PULMONARY DISEASE, U 07/05/2019 LEIGH ANGEL MD, Ot K21.9 GASTRO-ESOPHAGEAL REFLUX DISEASE WITHOUT 07/05/2019 LEIGH ANGEL MD, Ot M54.1 4 RADICULOPATHY, THORACIC REGION 07/05/2019 LEIGH ANGEL MD, Ot M54.5 LOW BACK PAIN 07/05/2019 LEIGH ANGEL MD, Ot S29.019A STRAIN OF MUSCLE AND TENDON OF UNSP WALL 07/05/2019 LEIGH ANGEL MD, Ot S39.011A STRAIN OF MUSCLE, FASCIA AND TENDON OF A 07/05/2019 LEIGH ANGEL MD, Ot S39.012A STRAIN OF MUSCLE, FASCIA AND TENDON OF L 07/05/2019 LEIGH ANGEL MD, Ot X58.XXXA EXPOSURE TO OTHER SPECIFIED FACTORS, INI 07/05/2019 LEIGH ANGEL MD, Ot Z79.5 1 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 07/05/2019 LEIGH ANGEL MD, Ot Z79.5 2 ASSISTED (CURRENT) USE OF SYSTEMIC STER 07/05/2019 LEIGH ANGEL MD, Ot Z88.8 ALLERGY STATUS TO [facility]TH DRUG/MEDS/BIOL SUB 07/09/2019 LEIGH ANGEL MD Ot F32.9 MAJOR DEPRESSIVE DISORDER, SINGLE EPISOD 07/09/2019 LEIGH ANGEL MD, Ot F41.9 ANXIETY DISORDER, UNSPECIFIED 07/09/2019 LEIGH ANGEL MD, Ot G40.9 09 EPILEPSY, UNSP, NOT INTRACTABLE, WITHOUT 07/09/2019 LEIGH ANGEL MD, Ot I10 ESSENTIAL (PRIMARY) HYPERTENSION 07/09/2019 LEIGH ANGEL MD, Ot J44.9 CHRONIC OBSTRUCTIVE PULMONARY DISEASE, U 07/09/2019 LEIGH ANGEL MD, Ot K21.9 GASTRO-ESOPHAGEAL REFLUX DISEASE WITHOUT 07/09/2019 LEIGH ANGEL MD Ot R10.3 2 LEFT LOWER QUADRANT PAIN 07/09/2019 LEIGH ANGEL MD, Ot Z79.5 1 ASSISTED (CURRENT) USE OF INHALED STERO 07/09/2019 LEIGH ANGEL MD, Ot Z79.5 2 DONOR 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 9 MAJOR DEPRESSIVE DISORDER, SINGLE EPISOD 11/19/2019 CLAUDIO VENEGAS, SAMREEN Aguero Ot F41. 9 ANXIETY DISORDER, UNSPECIFIED 11/19/2019 CLAUDIO VENEGAS, SAMREEN Aguero Ot G40.909 EPILEPSY, UNSP, NOT INTRACTABLE, WITHOUT 11/19/2019 CLAUDIO VENEGAS, SAMREEN Aguero Ot G43.909 MIGRAINE, UNSP, NOT INTRACTABLE, WITHOUT 11/19/2019 CLAUDIO VENEGAS, SAMREEN Aguero Ot I10 ESSENTIAL (PRIMARY) HYPERTENSION 11/19/2019 CLAUDIO VENEGAS, SAMREEN Aguero Ot J44. 9 CHRONIC OBSTRUCTIVE PULMONARY DISEASE, U 11/19/2019 CLAUDIO VENEGAS, SAMREEN Aguero Ot K21. 9 GASTRO-ESOPHAGEAL REFLUX DISEASE WITHOUT 11/19/2019 CLAUDIO VENEGAS, SAMREEN Aguero Ot K58. 9 IRRITABLE BOWEL SYNDROME WITHOUT DIARRHE 11/19/2019 CLAUDIO VENEGAS, SAMREEN Aguero Ot M19. 91 PRIMARY OSTEOARTHRITIS, UNSPECIFIED SITE 11/19/2019 CLAUDIO VENEGAS, SAMREEN Aguero Ot M54. 9 DORSALGIA, UNSPECIFIED 11/19/2019 CLAUDIO VENEGAS, SAMREEN Aguero Ot Q05. 9 SPINA BIFIDA, UNSPECIFIED 11/19/2019 CLAUDIO VENEGAS, SAMREEN Aguero Ot R10. 31 RIGHT LOWER QUADRANT PAIN 11/19/2019 SAMREEN SNYDER MD Ot R10. 32 LEFT LOWER QUADRANT PAIN 11/19/2019 CLAUDIO VENEGAS, SAMREEN Aguero Ot Z90.710 ACQUIRED ABSENCE OF BOTH CERVIX AND UTER 11/19/2019 CLAUDIO VENEGAS, SAMREEN Aguero Ot F17.210 NICOTINE DEPENDENCE, CIGARETTES, UNCOMPL 11/19/2019 SAMREEN SNYDER MD Ot F32. 9 MAJOR DEPRESSIVE DISORDER, SINGLE EPISOD 11/19/2019 CLAUDIO VENEGAS, SAMREEN Aguero Ot F41. 9 ANXIETY DISORDER, UNSPECIFIED 11/19/2019 SAMREEN SNYDER MD Ot G40.909 EPILEPSY, UNSP, NOT INTRACTABLE, WITHOUT 11/19/2019 CLAUDIO VENEGAS, SAMREEN Aguero Ot G43.909 MIGRAINE, UNSP, NOT INTRACTABLE, WITHOUT 11/19/2019 SAMREEN SNYDER MD Ot I10 ESSENTIAL (PRIMARY) HYPERTENSION 11/19/2019 SAMREEN SNYDER MD Ot J44. 9 CHRONIC OBSTRUCTIVE PULMONARY DISEASE, U 11/19/2019 SAMREEN SNYDER MD Ot K21. 9 GASTRO-ESOPHAGEAL REFLUX DISEASE WITHOUT 11/19/2019 CLAUDIO VENEGAS, SAMREEN Aguero Ot K58. 9 IRRITABLE BOWEL SYNDROME WITHOUT DIARRHE 11/19/2019 CLAUDIO VENEGAS, SAMREEN Aguero Ot M19. 91 PRIMARY OSTEOARTHRITIS, UNSPECIFIED SITE 11/19/2019 SAMREEN SNYDER MD Ot M54. 9 DORSALGIA, UNSPECIFIED 11/19/2019 SAMREEN SNYDER MD Ot Q05. 9 SPINA BIFIDA, UNSPECIFIED 11/19/2019 SAMREEN SNYDER MD Ot R10. 31 RIGHT LOWER QUADRANT PAIN 11/19/2019 SAMREEN SNYDER MD Ot R10. 32 LEFT LOWER QUADRANT PAIN 11/19/2019 SAMREEN SNYDER MD Ot Z90.710 ACQUIRED ABSENCE OF BOTH CERVIX AND UTER Procedures There is no data. Results Test Result Range Methicillin resistant Staphylococcus aur eus (MRSA) screening culture - 04/14/16 06:45 Methicillin resistant Staphylococcus aureus (MRSA) scr eening culture NEG NRG Complete blood count (CBC) with automate d white blood cell (WBC) differential - 09/25/18 00:53 Blood leukocytes automated count (number/volume) 12.8 10*3/uL 4.3-11.0 Blood erythrocytes automated count (number/volume) 4.18 10*6/uL 4.35-5.85 Venous blood hemoglobin measurement (mass/volume) 12.5 g/dL 11.5-16.0 Blood hematocrit (volume fraction) 37 % 35-52 Automated erythrocyte mean corpuscular volume 88 [ foz_us] 80-99 Automated erythrocyte mean corpuscular h emoglobin (mass per erythrocyte) 30 pg 25-34 Automated erythrocyte mean corpuscular h emoglobin concentration measurement (mass/volume) 34 g/dL 32-36 Automated erythrocyte distribution width ratio 13. 4 % 10.0- 14.5 Automated blood platelet count [...] 10*3 1.0-4.0 Blood monocytes automated count (number/volume) 0. 6 10*3 0.0-1.0 Automated eosinophil count 0.2 10*3/uL 0 .0-0.3 Automated blood basophil count (count/volume) 0.1 10*3/uL 0.0-0.1 Comprehensive metabolic panel - 09/25/18 00:53 Serum or plasma sodium measurement (moles/volume) 142 mmol/L 135-145 Serum or plasma potassium measurement (moles/volume) 3.4 mmol/L 3.6-5.0 Serum or plasma chloride measurement (moles/volume) 103 mmol/L 98-107 Carbon dioxide 21 mmol/L 21-32 Serum or plasma anion gap determination (moles/volume) 18 mmol/L 5-14 Serum or plasma urea nitrogen measurement (mass/volume ) 5 mg/dL 7-18 Serum or plasma creatinine measurement (mass/volume) 0.63 mg/dL 0.60-1.30 Serum or plasma urea nitrogen/creatinine mass ratio 8 NRG Serum or plasma creatinine measurement w ith calculation of estimated glomerular filtration rate > NRG Serum or plasma glucose measurement (mass/volume) 104 mg/dL 70-105 Serum or plasma calcium measurement (mass/volume) 8.7 mg/dL 8.5-10.1 Serum or plasma total bilirubin measurement (mass/volu me) 0.2 mg/dL 0.1-1.0 Serum or plasma alkaline phosphatase kiarra surement (enzymatic activity/volume) 112 U/L 40-136 Serum or plasma aspartate aminotransfera se measurement (enzymatic activity/volume) 27 U/L 5-34 Serum or plasma alanine aminotransferase measurement (enzymatic activity/volume) 28 U/L 0-55 Serum or plasma protein measurement (mass/volume) 6.9 g/dL 6.4-8.2 Serum or plasma albumin measurement (mass/volume) 4.0 g/dL 3.2-4.5 CALCIUM CORRECTED 8.7 mg/dL 8.5-10.1 Complete urinalysis with reflex to cultu re - 09/25/18 01:33 Urine color determination YELLOW NRG Urine clarity determination SLT CLOUDY NRG Urine pH measurement by test strip 6.5 5-9 Specific gravity of urine by test strip 1.025 1.016-1.022 Urine protein assay by test strip, semi-quantitative TRACE NEGATIVE Urine glucose detection by automated test strip NE GATIVE NEGATIVE Erythrocytes detection in urine sediment by light micr oscopy TRACE NEGATIVE Urine ketones detection by automated test strip NE GATIVE NEGATIVE Urine nitrite detection by test strip NEGATIVE NEGATIVE Urine total bilirubin detection by test strip NEGA TIVE NEGATIVE Urine urobilinogen measurement by automated test strip (mass/volume) 0.2 mg/dL NORMAL Urine leukocyte esterase detection by dipstick NEG ATIVE NEGATIVE Automated urine sediment erythrocyte cou nt by microscopy (number/high power field) [HPF] NRG Automated urine sediment leukocyte count by microscopy (number/high power field) [HPF] NRG Bacteria detection in urine sediment by light microsco py NEGATIVE NRG Squamous epithelial cells detection in u rine sediment by light microscopy 10-25 NRG Crystals detection in urine sediment by light microsco py NONE NRG Casts detection in urine sediment by light microscopy NONE NRG Mucus detection in urine sediment by light microscopy SMALL NRG Complete urinalysis with reflex to culture NO NRG PDM - 09 PANEL (PROFILE 1) - 11/07/18 10 :05 Prescribed Drug 1 Klonopin(TM) NRG Creatinine 27.0 mg/dL > or = 20.0 pH 6.54 4.5 - 9.0 Oxidant NEGATIVE [...] aOH alprazolam CONSISTENT NRG Alphahydroxymidazolam NEGATIVE ng/mL < 50 medMATCH aOH midazolam CONSISTENT NRG Alphahydroxytriazolam NEGATIVE ng/mL < 50 medMATCH aOH triazolam CONSISTENT NRG Aminoclonazepam NEGATIVE ng/mL <25 medMATCH Aminoclonazepam INCONSISTENT N RG Hydroxyethylflurazepam NEGATIVE ng/mL <50 medMATCH OH,Et flurazepam CONSISTENT NR G Lorazepam NEGATIVE ng/mL <50 medMATCH Lorazepam CONSISTENT [...] - 09 PANEL (PROFILE 1) - 11/20/18 16 :10 Prescribed Drug 1 Klonopin(TM) NRG Creatinine 187.7 mg/dL > or = 20.0 pH 7.08 4.5 - 9.0 Oxidant NEGATIVE [...] - 09 PANEL (PROFILE 1) - 11/22/18 11 :26 Prescribed Drug 1 Klonopin(TM) NRG Creatinine 80.5 mg/dL > or = 20.0 pH 7.16 4.5 - 9.0 Oxidant NEGATIVE [...] aOH alprazolam CONSISTENT NRG Alphahydroxymidazolam NEGATIVE ng/mL < 50 medMATCH aOH midazolam CONSISTENT NRG Alphahydroxytriazolam NEGATIVE ng/mL < 50 medMATCH aOH triazolam CONSISTENT NRG Aminoclonazepam 27 ng/mL <25 medMATCH Aminoclonazepam CONSISTENT NRG Hydroxyethylflurazepam NEGATIVE ng/mL <50 medMATCH [place],Et flurazepam CONSISTENT NR G Lorazepam NEGATIVE ng/mL <50 medMATCH Lorazepam CONSISTENT NRG Nordiazepam NEGATIVE ng/mL <50 medMATCH Nordiazepam CONSISTENT NRG Oxazepam NEGATIVE ng/mL <50 medMATCH Oxazepam CONSISTENT NRG Temazepam NEGATIVE ng/mL <50 medMATCH Temazepam CONSISTENT NRG Barbiturates NEGATIVE ng/mL <300 medMATCH Barbiturates CONSISTENT NRG Methadone Metabolite NEGATIVE ng/mL <100 medMATCH Methadone Metab CONSISTENT NRG Phencyclidine NEGATIVE ng/mL <25 medMATCH Phencyclidine CONSISTENT NRG Complete urinalysis with reflex to cultu re - 11/30/18 00:55 Urine color determination YELLOW NRG Urine clarity determination CLEAR NR G Urine pH measurement by test strip 6.0 5-9 Specific gravity of urine by test strip 1.020 1.016-1.022 Urine protein assay by test strip, semi-quantitative NEGATIVE NEGATIVE Urine glucose detection by automated test strip NE GATIVE NEGATIVE Erythrocytes detection in urine sediment by light micr oscopy 1+ NEGATIVE Urine ketones detection by automated test strip NE GATIVE NEGATIVE Urine nitrite detection by test strip NEGATIVE NEGATIVE Urine total bilirubin detection by test strip NEGA TIVE NEGATIVE Urine urobilinogen measurement by automated test strip (mass/volume) 0.2 mg/dL NORMAL Urine leukocyte esterase detection by dipstick NEG ATIVE NEGATIVE Automated urine sediment erythrocyte cou nt by microscopy (number/high power field) [HPF] NRG Automated urine sediment leukocyte count by microscopy (number/high power field) NONE NRG Bacteria detection in urine sediment by light microsco py FEW NRG Squamous epithelial cells detection in u rine sediment by light microscopy 10-25 NRG Crystals detection in urine sediment by light microsco py NONE NRG Casts detection in urine sediment by light microscopy NONE NRG Mucus detection in urine sediment by light microscopy SMALL NRG Complete urinalysis with reflex to culture NO NRG Complete blood count (CBC) with automate d white blood cell (WBC) differential - 01/15/19 00:20 Blood leukocytes automated count (number/volume) 17.5 10*3/uL 4.3-11.0 Blood erythrocytes automated count (number/volume) 4.38 10*6/uL 4.35-5.85 Venous blood hemoglobin measurement (mass/volume) 13.3 g/dL 11.5-16.0 Blood hematocrit (volume fraction) 39 % 35-52 Automated erythrocyte mean corpuscular volume 90 [ foz_us] 80-99 Automated erythrocyte mean corpuscular h emoglobin (mass per erythrocyte) 30 pg 25-34 Automated erythrocyte mean corpuscular h emoglobin concentration measurement (mass/volume) 34 g/dL 32-36 Automated erythrocyte distribution width ratio 13. 9 % 10.0- 14.5 Automated blood platelet count (count/volume) 422 10*3/uL 130-400 Automated blood platelet mean volume measurement 10.0 [foz_us] 7.4-10.4 Automated blood neutrophils/100 leukocytes 57 % 42-75 Automated blood lymphocytes/100 leukocytes 36 % 12-44 Blood monocytes/100 leukocytes 4 % 0-12 Automated blood eosinophils/100 leukocytes 2 % 0-10 Automated blood basophils/100 leukocytes 1 % 0-10 Blood neutrophils automated count (number/volume) 10.0 10*3 1.8-7.8 Blood lymphocytes automated count (number/volume) 6.3 10*3 1.0-4.0 Blood monocytes automated count (number/volume) 0. 7 10*3 0.0-1.0 Automated eosinophil count 0.3 10*3/uL 0 .0-0.3 Automated blood basophil count (count/volume) 0.1 10*3/uL 0.0-0.1 Manual absolute plasma cell count - 07/31 00:20 Blood monocytes/100 leukocytes 5 % NRG Manual blood segmented neutrophils/100 leukocytes 57 % NRG Manual blood lymphocytes/100 leukocytes 37 % NRG Manual eosinophils/100 leukocytes in nose 1 % NRG Blood erythrocyte morphology finding identification NORMAL [facility] Comprehensive metabolic panel - 01/15/19 00:20 Serum or plasma sodium measurement (moles/volume) 141 mmol/L 135-145 Serum or plasma potassium measurement (moles/volume) 2.8 mmol/L 3.6-5.0 Serum or plasma chloride measurement (moles/volume) 102 mmol/L 98-107 Carbon dioxide 22 mmol/L 21-32 Serum or plasma anion gap determination (moles/volume) 17 mmol/L 5-14 Serum or plasma urea nitrogen measurement (mass/volume ) 8 mg/dL 7-18 Serum or plasma creatinine measurement (mass/volume) 0.69 mg/dL 0.60-1.30 Serum or plasma urea nitrogen/creatinine mass ratio 12 NRG Serum or plasma creatinine measurement w ith calculation of estimated glomerular filtration rate > NRG Serum or plasma glucose measurement (mass/volume) 120 mg/dL 70-105 Serum or plasma calcium measurement (mass/volume) 9.1 mg/dL 8.5-10.1 Serum or plasma total bilirubin measurement (mass/volu me) 0.2 mg/dL 0.1-1.0 Serum or plasma alkaline phosphatase kiarra surement (enzymatic activity/volume) 133 U/L 40-136 Serum or plasma aspartate aminotransfera se measurement (enzymatic activity/volume) 30 U/L 5-34 Serum or plasma alanine aminotransferase measurement (enzymatic activity/volume) 25 U/L 0-55 Serum or plasma protein measurement (mass/volume) 7.7 g/dL 6.4-8.2 Serum or plasma albumin measurement (mass/volume) 4.1 g/dL 3.2-4.5 CALCIUM CORRECTED 9.0 mg/dL 8.5-10.1 Magnesium - 01/15/19 00:20 Magnesium 1.9 mg/dL 1.6-2.4 Lipase - 01/15/19 00:20 Lipase 28 U/L 8-78 PT panel in platelet poor plasma by coag ulation assay - 01/15/19 00:20 Prothrombin time (PT) in platelet poor plasma by coagu lation assay 12.9 s 12.2-14.7 INR in platelet poor plasma or blood by coagulation as say 0.9 0.8-1.4 Activated partial thromboplastin time (a PTT) in platelet poor plasma bycoagulation assay - 01/15/19 00:20 Activated partial thromboplastin time (a PTT) in platelet poor plasma bycoagulation assay 24 s 24-35 Serum or plasma troponin i.cardiac measu rement (mass/volume) - 01/15/19 00:20 Serum or plasma troponin i.cardiac measurement (mass/v olume) < ng/mL <0.30 PROBNP FS - 01/15/19 00:20 PROBNP FS 131.7 pg/mL <75.0 Blood lactic acid measurement (moles/vol ume) - 01/15/19 02:30 Blood lactic acid measurement (moles/volume) 1.08 mmol/L 0.50-2.00 Bacterial blood culture - 01/15/19 02:30 Bacterial blood culture NG NRG Bacterial blood culture - 01/15/19 03:00 Bacterial blood culture NG NRG Complete blood count (CBC) with automate d white blood cell (WBC) differential - 01/25/19 19:20 Blood leukocytes automated count (number/volume) 18.1 10*3/uL 4.3-11.0 Blood erythrocytes automated count (number/volume) 4.22 10*6/uL 4.35-5.85 Venous blood hemoglobin measurement (mass/volume) 12.9 g/dL 11.5-16.0 Blood hematocrit (volume fraction) 39 % 35-52 Automated erythrocyte mean corpuscular volume 92 [ foz_us] 80-99 Automated erythrocyte mean corpuscular h emoglobin (mass per erythrocyte) 31 pg 25-34 Automated erythrocyte mean corpuscular h emoglobin concentration measurement (mass/volume) 33 g/dL 32-36 Automated erythrocyte distribution width ratio 14. 3 % 10.0- 14.5 Automated blood platelet count (count/volume) 421 10*3/uL 130-400 Automated blood platelet mean volume measurement 9.7 [foz_us] 7.4-10.4 Automated blood neutrophils/100 leukocytes 62 % 42-75 Automated blood lymphocytes/100 leukocytes 31 % 12-44 Blood monocytes/100 leukocytes 5 % 0-12 Automated blood eosinophils/100 leukocytes 1 % 0-10 Automated blood basophils/100 leukocytes 1 % 0-10 Blood neutrophils automated count (number/volume) 11.2 10*3 1.8-7.8 Blood lymphocytes automated count (number/volume) 5.7 10*3 1.0-4.0 Blood monocytes automated count (number/volume) 0. 8 10*3 0.0-1.0 Automated eosinophil count 0.2 10*3/uL 0 .0-0.3 Automated blood basophil count (count/volume) 0.1 10*3/uL 0.0-0.1 Manual absolute plasma cell count - 01/13 07/31 19:20 Blood monocytes/100 leukocytes 3 % NRG Manual blood segmented neutrophils/100 leukocytes 57 % NRG Blood band neutrophils/100 leukocytes 1 % NRG Manual blood lymphocytes/100 leukocytes 37 % NRG Manual eosinophils/100 leukocytes in nose 1 % NRG Manual blood basophils/100 leukocytes 1 % NRG Comprehensive metabolic panel - 01/25/19 19:20 Serum or plasma sodium measurement (moles/volume) 136 mmol/L 135-145 Serum or plasma potassium measurement (moles/volume) 3.8 mmol/L 3.6-5.0 Serum or plasma chloride measurement (moles/volume) 97 mmol/L 98-107 Carbon dioxide 25 mmol/L 21-32 Serum or plasma anion gap determination (moles/volume) 14 mmol/L 5-14 Serum or plasma urea nitrogen measurement (mass/volume ) 11 mg/dL 7-18 Serum or plasma creatinine measurement (mass/volume) 0.75 mg/dL 0.60-1.30 Serum or plasma urea nitrogen/creatinine mass ratio 15 NRG Serum or plasma creatinine measurement w ith calculation of estimated glomerular filtration rate > NRG Serum or plasma glucose measurement (mass/volume) 116 mg/dL 70-105 Serum or plasma calcium measurement (mass/volume) 9.4 mg/dL 8.5-10.1 Serum or plasma total bilirubin measurement (mass/volu me) 0.2 mg/dL 0.1-1.0 Serum or plasma alkaline phosphatase kiarra surement (enzymatic activity/volume) 124 U/L 40-136 Serum or plasma aspartate aminotransfera se measurement (enzymatic activity/volume) 33 U/L 5-34 Serum or plasma alanine aminotransferase measurement (enzymatic activity/volume) 24 U/L 0-55 Serum or plasma protein measurement (mass/volume) 7.6 g/dL 6.4-8.2 Serum or plasma albumin measurement (mass/volume) 4.1 g/dL 3.2-4.5 CALCIUM CORRECTED 9.3 mg/dL 8.5-10.1 Lipase - 01/25/19 19:20 Lipase 35 U/L 8-78 Complete urinalysis with reflex to cultu re - 01/25/19 19:26 Urine color determination PALE YELLOW N RG Urine clarity determination CLEAR NR G Urine pH measurement by test strip 6.0 5-9 Specific gravity of urine by test strip 1.010 1.016-1.022 Urine protein assay by test strip, semi-quantitative NEGATIVE NEGATIVE Urine glucose detection by automated test strip NE GATIVE NEGATIVE Erythrocytes detection in urine sediment by light micr oscopy 1+ NEGATIVE Urine ketones detection by automated test strip NE GATIVE NEGATIVE Urine nitrite detection by test strip NEGATIVE NEGATIVE Urine total bilirubin detection by test strip NEGA TIVE NEGATIVE Urine urobilinogen measurement by automated test strip (mass/volume) 0.2 mg/dL NORMAL Urine leukocyte esterase detection by dipstick NEG ATIVE NEGATIVE Automated urine sediment erythrocyte cou nt by microscopy (number/high power field) NONE NRG Automated urine sediment leukocyte count by microscopy (number/high power field) RARE NRG Bacteria detection in urine sediment by light microsco py NEGATIVE NRG Squamous epithelial cells detection in u rine sediment by light microscopy 5-10 NRG Crystals detection in urine sediment by light microsco py NONE NRG Casts detection in urine sediment by light microscopy NONE NRG Mucus detection in urine sediment by light microscopy NONE NRG Complete urinalysis with reflex to culture NO NRG Automated blood complete blood count (he mogram) panel - 01/26/19 09:39 Blood leukocytes automated count (number/volume) 12.7 10*3/uL 4.3-11.0 Blood erythrocytes automated count (number/volume) 3.97 10*6/uL 4.35-5.85 Venous blood hemoglobin measurement (mass/volume) 12.1 g/dL 11.5-16.0 Blood hematocrit (volume fraction) 36 % 35-52 Automated erythrocyte mean corpuscular volume 91 [ foz_us] 80-99 Automated erythrocyte mean corpuscular h emoglobin (mass per erythrocyte) 30 pg 25-34 Automated erythrocyte mean corpuscular h emoglobin concentration measurement (mass/volume) 33 g/dL 32-36 Automated erythrocyte distribution width ratio 14. 7 % 10.0- 14.5 Automated blood platelet count (count/volume) 390 10*3/uL 130-400 Automated blood platelet mean volume measurement 9.9 [foz_us] 7.4-10.4 Comprehensive metabolic panel - 01/26/19 09:39 Serum or plasma sodium measurement (moles/volume) 138 mmol/L 135-145 Serum or plasma potassium measurement (moles/volume) 3.6 mmol/L 3.6-5.0 Serum or plasma chloride measurement (moles/volume) 103 mmol/L 98-107 Carbon dioxide 25 mmol/L 21-32 Serum or plasma anion gap determination (moles/volume) 10 mmol/L 5-14 Serum or plasma urea nitrogen measurement (mass/volume ) 10 mg/dL 7-18 Serum or plasma creatinine measurement (mass/volume) 0.72 mg/dL 0.60-1.30 Serum or plasma urea nitrogen/creatinine mass ratio 14 NRG Serum or plasma creatinine measurement w ith calculation of estimated glomerular filtration rate > NRG Serum or plasma glucose measurement (mass/volume) 93 mg/dL 70-105 Serum or plasma calcium measurement (mass/volume) 8.8 mg/dL 8.5-10.1 Serum or plasma total bilirubin measurement (mass/volu me) 0.3 mg/dL 0.1-1.0 Serum or plasma alkaline phosphatase kiarra surement (enzymatic activity/volume) 138 U/L 40-136 Serum or plasma aspartate aminotransfera se measurement (enzymatic activity/volume) 52 U/L 5-34 Serum or plasma alanine aminotransferase measurement (enzymatic activity/volume) 37 U/L 0-55 Serum or plasma protein measurement (mass/volume) 7.3 g/dL 6.4-8.2 Serum or plasma albumin measurement (mass/volume) 4.0 g/dL 3.2-4.5 CALCIUM CORRECTED 8.8 mg/dL 8.5-10.1 Complete blood count (CBC) with automate d white blood cell (WBC) differential - 01/27/19 05:16 Blood leukocytes automated count (number/volume) 10.8 10*3/uL 4.3-11.0 Blood erythrocytes automated count (number/volume) 3.69 10*6/uL 4.35-5.85 Venous blood hemoglobin measurement (mass/volume) 10.9 g/dL 11.5-16.0 Blood hematocrit (volume fraction) 34 % 35-52 Automated erythrocyte mean corpuscular volume 92 [ foz_us] 80-99 Automated erythrocyte mean corpuscular h emoglobin (mass per erythrocyte) 30 pg 25-34 Automated erythrocyte mean corpuscular h emoglobin concentration measurement (mass/volume) 32 g/dL 32-36 Automated erythrocyte distribution width ratio 14. 5 % 10.0- 14.5 Automated blood platelet count (count/volume) 365 10*3/uL 130-400 Automated blood platelet mean volume measurement 9.7 [foz_us] 7.4-10.4 Automated blood neutrophils/100 leukocytes 65 % 42-75 Automated blood lymphocytes/100 leukocytes 29 % 12-44 Blood monocytes/100 leukocytes 5 % 0-12 Automated blood eosinophils/100 leukocytes 2 % 0-10 Automated blood basophils/100 leukocytes 0 % 0-10 Blood neutrophils automated count (number/volume) 7.0 10*3 1.8-7.8 Blood lymphocytes automated count (number/volume) 3.1 10*3 1.0-4.0 Blood monocytes automated count (number/volume) 0. 5 10*3 0.0-1.0 Automated eosinophil count 0.2 10*3/uL 0 .0-0.3 Automated blood basophil count (count/volume) 0.0 10*3/uL 0.0-0.1 Whole blood basic metabolic panel - 01/13 09/30 05:16 Serum or plasma sodium measurement (moles/volume) 139 mmol/L 135-145 Serum or plasma potassium measurement (moles/volume) 3.7 mmol/L 3.6-5.0 Serum or plasma chloride measurement (moles/volume) 107 mmol/L 98-107 Carbon dioxide 24 mmol/L 21-32 Serum or plasma anion gap determination (moles/volume) 8 mmol/L 5-14 Serum or plasma urea nitrogen measurement (mass/volume ) 10 mg/dL 7-18 Serum or plasma creatinine measurement (mass/volume) 0.60 mg/dL 0.60-1.30 Serum or plasma urea nitrogen/creatinine mass ratio 17 NRG Serum or plasma creatinine measurement w ith calculation of estimated glomerular filtration rate > NRG Serum or plasma glucose measurement (mass/volume) 88 mg/dL 70-105 Serum or plasma calcium measurement (mass/volume) 9.6 mg/dL 8.5-10.1 Complete blood count (CBC) with automate d white blood cell (WBC) differential - 01/29/19 13:55 Blood leukocytes automated count (number/volume) 16.3 10*3/uL 4.3-11.0 Blood erythrocytes automated count (number/volume) 3.69 10*6/uL 4.35-5.85 Venous blood hemoglobin measurement (mass/volume) 11.4 g/dL 11.5-16.0 Blood hematocrit (volume fraction) 34 % 35-52 Automated erythrocyte mean corpuscular volume 92 [ foz_us] 80-99 Automated erythrocyte mean corpuscular h emoglobin (mass per erythrocyte) 31 pg 25-34 Automated erythrocyte mean corpuscular h emoglobin concentration measurement (mass/volume) 34 g/dL 32-36 Automated erythrocyte distribution width ratio 13. 9 % 10.0- 14.5 Automated blood platelet count (count/volume) 390 10*3/uL 130-400 Automated blood platelet mean volume measurement 9.3 [foz_us] 7.4-10.4 Automated blood neutrophils/100 leukocytes 69 % 42-75 Automated blood lymphocytes/100 leukocytes 25 % 12-44 Blood monocytes/100 leukocytes 4 % 0-12 Automated blood eosinophils/100 leukocytes 2 % 0-10 Automated blood basophils/100 leukocytes 0 % 0-10 Blood neutrophils automated count (number/volume) 11.2 10*3 1.8-7.8 Blood lymphocytes automated count (number/volume) 4.0 10*3 1.0-4.0 Blood monocytes automated count (number/volume) 0. 6 10*3 0.0-1.0 Automated eosinophil count 0.3 10*3/uL 0 .0-0.3 Automated blood basophil count (count/volume) 0.1 10*3/uL 0.0-0.1 Manual absolute plasma cell count - 01/13 11/30 13:55 Blood monocytes/100 leukocytes 6 % NRG Manual blood segmented neutrophils/100 leukocytes 58 % NRG Blood band neutrophils/100 leukocytes 7 % NRG Manual blood lymphocytes/100 leukocytes 24 % NRG Manual eosinophils/100 leukocytes in nose 4 % NRG Manual blood basophils/100 leukocytes 1 % NRG Blood erythrocyte morphology finding identification NORMAL NRG Complete urinalysis with reflex to cultu re - 02/03/19 13:45 Urine color determination YELLOW NRG Urine clarity determination CLEAR NR G Urine pH measurement by test strip 6.5 5-9 Specific gravity of urine by test strip 1.010 1.016-1.022 Urine protein assay by test strip, semi-quantitative NEGATIVE NEGATIVE Urine glucose detection by automated test strip NE GATIVE NEGATIVE Erythrocytes detection in urine sediment by light micr oscopy TRACE NEGATIVE Urine ketones detection by automated test strip NE GATIVE NEGATIVE Urine nitrite detection by test strip NEGATIVE NEGATIVE Urine total bilirubin detection by test strip NEGA TIVE NEGATIVE Urine urobilinogen measurement by automated test strip (mass/volume) 0.2 mg/dL NORMAL Urine leukocyte esterase detection by dipstick NEG ATIVE NEGATIVE Automated urine sediment erythrocyte cou nt by microscopy (number/high power field) RARE NRG Automated urine sediment leukocyte count by microscopy (number/high power field) NONE NRG Bacteria detection in urine sediment by light microsco py NEGATIVE NRG Squamous epithelial cells detection in u rine sediment by light microscopy 5-10 NRG Crystals detection in urine sediment by light microsco py NONE NRG Casts detection in urine sediment by light microscopy NONE NRG Mucus detection in urine sediment by light microscopy NONE NRG Complete urinalysis with reflex to culture NO NRG Urine beta human chorionic gonadotropin (hCG) measurement - 02/03/19 13:45 Urine beta human chorionic gonadotropin (hCG) measurem ent NEGATIVE NEGATIVE Complete blood count (CBC) with automate d white blood cell (WBC) differential - 02/03/19 14:10 Blood leukocytes automated count (number/volume) 15.3 10*3/uL 4.3-11.0 Blood erythrocytes automated count (number/volume) 3.98 10*6/uL 4.35-5.85 Venous blood hemoglobin measurement (mass/volume) 12.2 g/dL 11.5-16.0 Blood hematocrit (volume fraction) 36 % 35-52 Automated erythrocyte mean corpuscular volume 90 [ foz_us] 80-99 Automated erythrocyte mean corpuscular h emoglobin (mass per erythrocyte) 31 pg 25-34 Automated erythrocyte mean corpuscular h emoglobin concentration measurement (mass/volume) 34 g/dL 32-36 Automated erythrocyte distribution width ratio 14. 1 % 10.0- 14.5 Automated blood platelet count (count/volume) 441 10*3/uL 130-400 Automated blood platelet mean volume measurement 9.2 [foz_us] 7.4-10.4 Automated blood neutrophils/100 leukocytes 68 % 42-75 Automated blood lymphocytes/100 leukocytes 25 % 12-44 Blood monocytes/100 leukocytes 4 % 0-12 Automated blood eosinophils/100 leukocytes 2 % 0-10 Automated blood basophils/100 leukocytes 1 % 0-10 Blood neutrophils automated count (number/volume) 10.5 10*3 1.8-7.8 Blood lymphocytes automated count (number/volume) 3.8 10*3 1.0-4.0 Blood monocytes automated count (number/volume) 0. 6 10*3 0.0-1.0 Automated eosinophil count 0.3 10*3/uL 0 .0-0.3 Automated blood basophil count (count/volume) 0.1 10*3/uL 0.0-0.1 Liver function panel (serum or plasma al k phos, alb, total and direct bili, total protein, ALT, AST) - 02/03/19 14:10 Serum or plasma total bilirubin measurement (mass/volu me) 0.2 mg/dL 0.1-1.0 Serum or plasma alkaline phosphatase kiarra surement (enzymatic activity/volume) 113 U/L 40-136 Serum or plasma aspartate aminotransfera se measurement (enzymatic activity/volume) 36 U/L 5-34 Serum or plasma alanine aminotransferase measurement (enzymatic activity/volume) 20 U/L 0-55 Serum or plasma protein measurement (mass/volume) 7.3 g/dL 6.4-8.2 Serum or plasma albumin measurement (mass/volume) 4.1 g/dL 3.2-4.5 Bilirubin direct < mg/dL 0.0-0.3 Serum or plasma indirect bilirubin measurement (mass/v olume) 0.0 mg/dL NR Whole blood basic metabolic panel - 01/14 07/03 14:10 Serum or plasma sodium measurement (moles/volume) 139 mmol/L 135-145 Serum or plasma potassium measurement (moles/volume) 3.4 mmol/L 3.6-5.0 Serum or plasma chloride measurement (moles/volume) 102 mmol/L 98-107 Carbon dioxide 26 mmol/L 21-32 Serum or plasma anion gap determination (moles/volume) 11 mmol/L 5-14 Serum or plasma urea nitrogen measurement (mass/volume ) 7 mg/dL 7-18 Serum or plasma creatinine measurement (mass/volume) 0.74 mg/dL 0.60-1.30 Serum or plasma urea nitrogen/creatinine mass ratio 9 NRG Serum or plasma creatinine measurement w ith calculation of estimated glomerular filtration rate > NRG Serum or plasma glucose measurement (mass/volume) 92 mg/dL 70-105 Serum or plasma calcium measurement (mass/volume) 8.8 mg/dL 8.5-10.1 Lipase - 02/03/19 14:10 Lipase 20 U/L 8-78 Manual absolute plasma cell count - 01/14 07/03 14:10 Blood monocytes/100 leukocytes 3 % NRG Manual blood segmented neutrophils/100 leukocytes 65 % NRG Blood band neutrophils/100 leukocytes 2 % NRG Manual blood lymphocytes/100 leukocytes 23 % NRG Manual eosinophils/100 leukocytes in nose 3 % NRG Manual blood basophils/100 leukocytes 0 % NRG Manual blood lymphocytes variant/100 leukocytes 4 % NRG Complete urinalysis with reflex to cultu re - 02/10/19 20:35 Urine color determination STRAW NRG Urine clarity determination CLEAR NR G Urine pH measurement by test strip 6.0 5-9 Specific gravity of urine by test strip <= 1.016-1.022 Urine protein assay by test strip, semi-quantitative NEGATIVE NEGATIVE Urine glucose detection by automated test strip NE GATIVE NEGATIVE Erythrocytes detection in urine sediment by light micr oscopy TRACE-I NEGATIVE Urine ketones detection by automated test strip NE GATIVE NEGATIVE Urine nitrite detection by test strip NEGATIVE NEGATIVE Urine total bilirubin detection by test strip NEGA TIVE NEGATIVE Urine urobilinogen measurement by automated test strip (mass/volume) 0.2 mg/dL NORMAL Urine leukocyte esterase detection by dipstick NEG ATIVE NEGATIVE Automated urine sediment erythrocyte cou nt by microscopy (number/high power field) [HPF] NRG Automated urine sediment leukocyte count by microscopy (number/high power field) NONE NRG Bacteria detection in urine sediment by light microsco py NEGATIVE NRG Crystals detection in urine sediment by light microsco py NONE NRG Casts detection in urine sediment by light microscopy NONE NRG Mucus detection in urine sediment by light microscopy NEGATIVE NRG Complete urinalysis with reflex to culture NO NRG Urine beta human chorionic gonadotropin (hCG) measurement - 02/10/19 20:35 Urine beta human chorionic gonadotropin (hCG) measurem ent NEGATIVE NEGATIVE Complete blood count (CBC) with automate d white blood cell (WBC) differential - 02/10/19 21:17 Blood leukocytes automated count (number/volume) 17.0 10*3/uL 4.3-11.0 Blood erythrocytes automated count (number/volume) 3.88 10*6/uL 4.35-5.85 Venous blood hemoglobin measurement (mass/volume) 11.9 g/dL 11.5-16.0 Blood hematocrit (volume fraction) 35 % 35-52 Automated erythrocyte mean corpuscular volume 91 [ foz_us] 80-99 Automated erythrocyte mean corpuscular h emoglobin (mass per erythrocyte) 31 pg 25-34 Automated erythrocyte mean corpuscular h emoglobin concentration measurement (mass/volume) 34 g/dL 32-36 Automated erythrocyte distribution width ratio 14. 4 % 10.0- 14.5 Automated blood platelet count (count/volume) 408 10*3/uL 130-400 Automated blood platelet mean volume measurement 9.6 [foz_us] 7.4-10.4 Automated blood neutrophils/100 leukocytes 66 % 42-75 Automated blood lymphocytes/100 leukocytes 29 % 12-44 Blood monocytes/100 leukocytes 3 % 0-12 Automated blood eosinophils/100 leukocytes 2 % 0-10 Automated blood basophils/100 leukocytes 0 % 0-10 Blood neutrophils automated count (number/volume) 11.1 10*3 1.8-7.8 Blood lymphocytes automated count (number/volume) 4.9 10*3 1.0-4.0 Blood monocytes automated count (number/volume) 0. 6 10*3 0.0-1.0 Automated eosinophil count 0.3 10*3/uL 0 .0-0.3 Automated blood basophil count (count/volume) 0.1 10*3/uL 0.0-0.1 Comprehensive metabolic panel - 02/10/19 21:17 Serum or plasma sodium measurement (moles/volume) 140 mmol/L 135-145 Serum or plasma potassium measurement (moles/volume) 3.6 mmol/L 3.6-5.0 Serum or plasma chloride measurement (moles/volume) 104 mmol/L 98-107 Carbon dioxide 24 mmol/L 21-32 Serum or plasma anion gap determination (moles/volume) 12 mmol/L 5-14 Serum or plasma urea nitrogen measurement (mass/volume ) 8 mg/dL 7-18 Serum or plasma creatinine measurement (mass/volume) 0.81 mg/dL 0.60-1.30 Serum or plasma urea nitrogen/creatinine mass ratio 10 NRG Serum or plasma creatinine measurement w ith calculation of estimated glomerular filtration rate > NRG Serum or plasma glucose measurement (mass/volume) 93 mg/dL 70-105 Serum or plasma calcium measurement (mass/volume) 9.1 mg/dL 8.5-10.1 Serum or plasma total bilirubin measurement (mass/volu me) 0.2 mg/dL 0.1-1.0 Serum or plasma alkaline phosphatase kiarra surement (enzymatic activity/volume) 113 U/L 40-136 Serum or plasma aspartate aminotransfera se measurement (enzymatic activity/volume) 36 U/L 5-34 Serum or plasma alanine aminotransferase measurement (enzymatic activity/volume) 21 U/L 0-55 Serum or plasma protein measurement (mass/volume) 7.2 g/dL 6.4-8.2 Serum or plasma albumin measurement (mass/volume) 4.0 g/dL 3.2-4.5 CALCIUM CORRECTED 9.1 mg/dL 8.5-10.1 Lipase - 02/10/19 21:17 Lipase 23 U/L 8-78 Manual absolute plasma cell count - 01/14 01/31 21:17 Blood monocytes/100 leukocytes 1 % NRG Manual blood segmented neutrophils/100 leukocytes 67 % NRG Manual blood lymphocytes/100 leukocytes 30 % NRG Manual eosinophils/100 leukocytes in nose 2 % NRG Complete blood count (CBC) with automate d white blood cell (WBC) differential - 02/17/19 21:41 Blood leukocytes automated count (number/volume) 15.0 10*3/uL 4.3-11.0 Blood erythrocytes automated count (number/volume) 4.14 10*6/uL 4.35-5.85 Venous blood hemoglobin measurement (mass/volume) 12.6 g/dL 11.5-16.0 Blood hematocrit (volume fraction) 37 % 35-52 Automated erythrocyte mean corpuscular volume 90 [ foz_us] 80-99 Automated erythrocyte mean corpuscular h emoglobin (mass per erythrocyte) 30 pg 25-34 Automated erythrocyte mean corpuscular h emoglobin concentration measurement (mass/volume) 34 g/dL 32-36 Automated erythrocyte distribution width ratio 14. 4 % 10.0- 14.5 Automated blood platelet count (count/volume) 448 10*3/uL 130-400 Automated blood platelet mean volume measurement 9.5 [foz_us] 7.4-10.4 Automated blood neutrophils/100 leukocytes 65 % 42-75 Automated blood lymphocytes/100 leukocytes 28 % 12-44 Blood monocytes/100 leukocytes 4 % 0-12 Automated blood eosinophils/100 leukocytes 2 % 0-10 Automated blood basophils/100 leukocytes 1 % 0-10 Blood neutrophils automated count (number/volume) 9.8 10*3 1.8-7.8 Blood lymphocytes automated count (number/volume) 4.2 10*3 1.0-4.0 Blood monocytes automated count (number/volume) 0. 6 10*3 0.0-1.0 Automated eosinophil count 0.2 10*3/uL 0 .0-0.3 Automated blood basophil count (count/volume) 0.1 10*3/uL 0.0-0.1 Comprehensive metabolic panel - 02/17/19 21:41 Serum or plasma sodium measurement (moles/volume) 139 mmol/L 135-145 Serum or plasma potassium measurement (moles/volume) 2.9 mmol/L 3.6-5.0 Serum or plasma chloride measurement (moles/volume) 101 mmol/L 98-107 Carbon dioxide 28 mmol/L 21-32 Serum or plasma anion gap determination (moles/volume) 10 mmol/L 5-14 Serum or plasma urea nitrogen measurement (mass/volume ) 10 mg/dL 7-18 Serum or plasma creatinine measurement (mass/volume) 0.72 mg/dL 0.60-1.30 Serum or plasma urea nitrogen/creatinine mass ratio 14 NRG Serum or plasma creatinine measurement w ith calculation of estimated glomerular filtration rate > NRG Serum or plasma glucose measurement (mass/volume) 135 mg/dL 70-105 Serum or plasma calcium measurement (mass/volume) 8.7 mg/dL 8.5-10.1 Serum or plasma total bilirubin measurement (mass/volu me) 0.2 mg/dL 0.1-1.0 Serum or plasma alkaline phosphatase kiarra surement (enzymatic activity/volume) 104 U/L 40-136 Serum or plasma aspartate aminotransfera se measurement (enzymatic activity/volume) 29 U/L 5-34 Serum or plasma alanine aminotransferase measurement (enzymatic activity/volume) 17 U/L 0-55 Serum or plasma protein measurement (mass/volume) 7.3 g/dL 6.4-8.2 Serum or plasma albumin measurement (mass/volume) 4.1 g/dL 3.2-4.5 CALCIUM CORRECTED 8.6 mg/dL 8.5-10.1 Lipase - 02/17/19 21:41 Lipase 28 U/L 8-78 Manual absolute plasma cell count - 10/31 21:41 Blood monocytes/100 leukocytes 2 % NRG Manual blood segmented neutrophils/100 leukocytes 72 % NRG Manual blood lymphocytes/100 leukocytes 18 % NRG Manual eosinophils/100 leukocytes in nose 4 % NRG Manual blood lymphocytes variant/100 leukocytes 4 % NRG Complete urinalysis with reflex to cultu re - 02/17/19 21:48 Urine color determination YELLOW NRG Urine clarity determination CLOUDY NR G Urine pH measurement by test strip 6.0 5-9 Specific gravity of urine by test strip 1.025 1.016-1.022 Urine protein assay by test strip, semi-quantitative 1+ NEGATIVE Urine glucose detection by automated test strip NE GATIVE NEGATIVE Erythrocytes detection in urine sediment by light micr oscopy TRACE-I NEGATIVE Urine ketones detection by automated test strip NE GATIVE NEGATIVE Urine nitrite detection by test strip NEGATIVE NEGATIVE Urine total bilirubin detection by test strip NEGA TIVE NEGATIVE Urine urobilinogen measurement by automated test strip (mass/volume) 0.2 mg/dL NORMAL Urine leukocyte esterase detection by dipstick NEG ATIVE NEGATIVE Automated urine sediment erythrocyte cou nt by microscopy (number/high power field) NONE NRG Automated urine sediment leukocyte count by microscopy (number/high power field) NONE NRG Bacteria detection in urine sediment by light microsco py NEGATIVE NRG Squamous epithelial cells detection in u rine sediment by light microscopy 2-5 NRG Crystals detection in urine sediment by light microsco py NONE NRG Casts detection in urine sediment by light microscopy NONE NRG Mucus detection in urine sediment by light microscopy NEGATIVE NRG Complete urinalysis with reflex to culture NO NRG Complete blood count (CBC) with automate d white blood cell (WBC) differential - 04/23/19 17:50 Blood leukocytes automated count (number/volume) 17.0 10*3/uL 4.3-11.0 Blood erythrocytes automated count (number/volume) 4.32 10*6/uL 4.35-5.85 Venous blood hemoglobin measurement (mass/volume) 13.0 g/dL 11.5-16.0 Blood hematocrit (volume fraction) 39 % 35-52 Automated erythrocyte mean corpuscular volume 89 [ foz_us] 80-99 Automated erythrocyte mean corpuscular h emoglobin (mass per erythrocyte) 30 pg 25-34 Automated erythrocyte mean corpuscular h emoglobin concentration measurement (mass/volume) 34 g/dL 32-36 Automated erythrocyte distribution width ratio 13. 7 % 10.0- 14.5 Automated blood platelet count (count/volume) 469 10*3/uL 130-400 Automated blood platelet mean volume measurement 9.3 [foz_us] 7.4-10.4 Automated blood neutrophils/100 leukocytes 67 % 42-75 Automated blood lymphocytes/100 leukocytes 27 % 12-44 Blood monocytes/100 leukocytes 4 % 0-12 Automated blood eosinophils/100 leukocytes 1 % 0-10 Automated blood basophils/100 leukocytes 0 % 0-10 Blood neutrophils automated count (number/volume) 11.4 10*3 1.8-7.8 Blood lymphocytes automated count (number/volume) 4.6 10*3 1.0-4.0 Blood monocytes automated count (number/volume) 0. 7 10*3 0.0-1.0 Automated eosinophil count 0.2 10*3/uL 0 .0-0.3 Automated blood basophil count (count/volume) 0.1 10*3/uL 0.0-0.1 Comprehensive metabolic panel - 04/23/19 17:50 Serum or plasma sodium measurement (moles/volume) 137 mmol/L 135-145 Serum or plasma potassium measurement (moles/volume) 3.5 mmol/L 3.6-5.0 Serum or plasma chloride measurement (moles/volume) 101 mmol/L 98-107 Carbon dioxide 22 mmol/L 21-32 Serum or plasma anion gap determination (moles/volume) 14 mmol/L 5-14 Serum or plasma urea nitrogen measurement (mass/volume ) 6 mg/dL 7-18 Serum or plasma creatinine measurement (mass/volume) 0.69 mg/dL 0.60-1.30 Serum or plasma urea nitrogen/creatinine mass ratio 9 NRG Serum or plasma creatinine measurement w ith calculation of estimated glomerular filtration rate > NRG Serum or plasma glucose measurement (mass/volume) 99 mg/dL 70-105 Serum or plasma calcium measurement (mass/volume) 9.2 mg/dL 8.5-10.1 Serum or plasma total bilirubin measurement (mass/volu me) < mg/dL 0.1-1.0 Serum or plasma alkaline phosphatase kiarra surement (enzymatic activity/volume) 152 U/L 40-136 Serum or plasma aspartate aminotransfera se measurement (enzymatic activity/volume) 30 U/L 5-34 Serum or plasma alanine aminotransferase measurement (enzymatic activity/volume) 20 U/L 0-55 Serum or plasma protein measurement (mass/volume) 7.8 g/dL 6.4-8.2 Serum or plasma albumin measurement (mass/volume) 4.2 g/dL 3.2-4.5 CALCIUM CORRECTED 9.0 mg/dL 8.5-10.1 Lipase - 04/23/19 17:50 Lipase 26 U/L 8-78 Manual absolute plasma cell count - 04/14 17:50 Blood monocytes/100 leukocytes 2 % NRG Manual blood segmented neutrophils/100 leukocytes 67 % NRG Blood band neutrophils/100 leukocytes 1 % NRG Manual blood lymphocytes/100 leukocytes 22 % NRG Manual eosinophils/100 leukocytes in nose 1 % NRG Blood lymphocytes variant/100 leukocytes 7 % NRG Blood microcytes detection by light microscopy MOD ERATE NRG Blood platelet adequacy detection by light microscopy INCREASED NRG Complete urinalysis with reflex to cultu re - 04/23/19 18:01 Urine color determination YELLOW NRG Urine clarity determination CLEAR NR G Urine pH measurement by test strip 6.0 5-9 Specific gravity of urine by test strip <= 1.016-1.022 Urine protein assay by test strip, semi-quantitative NEGATIVE NEGATIVE Urine glucose detection by automated test strip NE GATIVE NEGATIVE Erythrocytes detection in urine sediment by light micr oscopy TRACE-L NEGATIVE Urine ketones detection by automated test strip NE GATIVE NEGATIVE Urine nitrite detection by test strip NEGATIVE NEGATIVE Urine total bilirubin detection by test strip NEGA TIVE NEGATIVE Urine urobilinogen measurement by automated test strip (mass/volume) 0.2 mg/dL < = 1.0 Urine leukocyte esterase detection by dipstick NEG ATIVE NEGATIVE Automated urine sediment erythrocyte cou nt by microscopy (number/high power field) NONE NRG Automated urine sediment leukocyte count by microscopy (number/high power field) NONE NRG Bacteria detection in urine sediment by light microsco py NEGATIVE NRG Squamous epithelial cells detection in u rine sediment by light microscopy 2-5 NRG Crystals detection in urine sediment by light microsco py NONE NRG Casts detection in urine sediment by light microscopy NONE NRG Mucus detection in urine sediment by light microscopy NEGATIVE NRG Complete urinalysis with reflex to culture NO NRG Complete urinalysis with reflex to cultu re - 05/16/19 22:40 Urine color determination YELLOW NRG Urine clarity determination CLEAR NR G Urine pH measurement by test strip 6.0 5-9 Specific gravity of urine by test strip 1.025 1.016-1.022 Urine protein assay by test strip, semi-quantitative NEGATIVE NEGATIVE Urine glucose detection by automated test strip NE GATIVE NEGATIVE Erythrocytes detection in urine sediment by light micr oscopy NEGATIVE NEGATIVE Urine ketones detection by automated test strip NE GATIVE NEGATIVE Urine nitrite detection by test strip NEGATIVE NEGATIVE Urine total bilirubin detection by test strip NEGA TIVE NEGATIVE Urine urobilinogen measurement by automated test strip (mass/volume) 0.2 mg/dL < = 1.0 Urine leukocyte esterase detection by dipstick NEG ATIVE NEGATIVE Automated urine sediment erythrocyte cou nt by microscopy (number/high power field) [HPF] NRG Automated urine sediment leukocyte count by microscopy (number/high power field) NONE NRG Bacteria detection in urine sediment by light microsco py NEGATIVE NRG Squamous epithelial cells detection in u rine sediment by light microscopy 5-10 NRG Crystals detection in urine sediment by light microsco py NONE NRG Casts detection in urine sediment by light microscopy NONE NRG Mucus detection in urine sediment by light microscopy SMALL NRG Complete urinalysis with reflex to culture NO NRG Complete blood count (CBC) with automate d white blood cell (WBC) differential - 05/16/19 22:50 Blood leukocytes automated count (number/volume) 17.2 10*3/uL 4.3-11.0 Blood erythrocytes automated count (number/volume) 4.05 10*6/uL 4.35-5.85 Venous blood hemoglobin measurement (mass/volume) 12.1 g/dL 11.5-16.0 Blood hematocrit (volume fraction) 36 % 35-52 Automated erythrocyte mean corpuscular volume 89 [ foz_us] 80-99 Automated erythrocyte mean corpuscular h emoglobin (mass per erythrocyte) 30 pg 25-34 Automated erythrocyte mean corpuscular h emoglobin concentration measurement (mass/volume) 33 g/dL 32-36 Automated erythrocyte distribution width ratio 13. 8 % 10.0- 14.5 Automated blood platelet count (count/volume) 430 10*3/uL 130-400 Automated blood platelet mean volume measurement 9.3 [foz_us] 7.4-10.4 Automated blood neutrophils/100 leukocytes 65 % 42-75 Automated blood lymphocytes/100 leukocytes 30 % 12-44 Blood monocytes/100 leukocytes 3 % 0-12 Automated blood eosinophils/100 leukocytes 1 % 0-10 Automated blood basophils/100 leukocytes 0 % 0-10 Blood neutrophils automated count (number/volume) 11.2 10*3 1.8-7.8 Blood lymphocytes automated count (number/volume) 5.1 10*3 1.0-4.0 Blood monocytes automated count (number/volume) 0. 5 10*3 0.0-1.0 Automated eosinophil count 0.2 10*3/uL 0 .0-0.3 Automated blood basophil count (count/volume) 0.1 10*3/uL 0.0-0.1 Comprehensive metabolic panel - 05/16/19 22:50 Serum or plasma sodium measurement (moles/volume) 138 mmol/L 135-145 Serum or plasma potassium measurement (moles/volume) 3.5 mmol/L 3.6-5.0 Serum or plasma chloride measurement (moles/volume) 103 mmol/L 98-107 Carbon dioxide 21 mmol/L 21-32 Serum or plasma anion gap determination (moles/volume) 14 mmol/L 5-14 Serum or plasma urea nitrogen measurement (mass/volume ) 11 mg/dL 7-18 Serum or plasma creatinine measurement (mass/volume) 0.76 mg/dL 0.60-1.30 Serum or plasma urea nitrogen/creatinine mass ratio 14 NRG Serum or plasma creatinine measurement w ith calculation of estimated glomerular filtration rate > NRG Serum or plasma glucose measurement (mass/volume) 122 mg/dL 70-105 Serum or plasma calcium measurement (mass/volume) 8.9 mg/dL 8.5-10.1 Serum or plasma total bilirubin measurement (mass/volu me) < mg/dL 0.1-1.0 Serum or plasma alkaline phosphatase kiarra surement (enzymatic activity/volume) 120 U/L 40-136 Serum or plasma aspartate aminotransfera se measurement (enzymatic activity/volume) 19 U/L 5-34 Serum or plasma alanine aminotransferase measurement (enzymatic activity/volume) 14 U/L 0-55 Serum or plasma protein measurement (mass/volume) 7.3 g/dL 6.4-8.2 Serum or plasma albumin measurement (mass/volume) 4.0 g/dL 3.2-4.5 CALCIUM CORRECTED 8.9 mg/dL 8.5-10.1 Lipase - 05/16/19 22:50 Lipase 47 U/L 8-78 Manual absolute plasma cell count - 07/04 22:50 Blood monocytes/100 leukocytes 3 % NRG Manual blood segmented neutrophils/100 leukocytes 65 % NRG Manual blood lymphocytes/100 leukocytes 29 % NRG Blood lymphocytes variant/100 leukocytes 3 % NRG Blood microcytes detection by light microscopy SLI GHT NRG Blood platelet adequacy detection by light microscopy INCREASED NRG Methicillin resistant Staphylococcus aur eus (MRSA) screening culture - 05/23/19 06:25 Methicillin resistant Staphylococcus aureus (MRSA) scr eening culture NEG NRG Aerobic bacterial ear culture - 05/23/19 07:59 QUANTITY OF GROWTH FEW NRG FTX;REPORTABLE NO FURTHER TESTING NRG FREE TEXT ENTRY 2 PRELIM RAPID ID TEST AT [facility] 05/25 9:15 NRG FREE TEXT ENTRY 3 RML CONFIRMED ID 05/25 14:05 NRG Aerobic bacterial ear culture [id number] NRG Serum or plasma C reactive protein measu rement (mass/volume) - 06/07/19 08:53 Serum or plasma C reactive protein measurement (mass/v olume) 3.13 mg/dL 0.00-0.50 Erythrocyte sedimentation rate by mateusz gren method - 06/07/19 08:53 Erythrocyte sedimentation rate by westergren method 12 mm 0- 20 ANTI-NUCLEAR AB (MANOHAR) ANALYZER - 0 08:53 Screening antinuclear antibody (MANOHAR) assay by enzyme i mmunoassay <1:80 <1:80 Complete urinalysis with reflex to cultu re - 06/27/19 19:30 Urine color determination YELLOW NRG Urine clarity determination CLEAR NR G Urine pH measurement by test strip 6.0 5-9 Specific gravity of urine by test strip 1.025 1.016-1.022 Urine protein assay by test strip, semi-quantitative NEGATIVE NEGATIVE Urine glucose detection by automated test strip NE GATIVE NEGATIVE Erythrocytes detection in urine sediment by light micr oscopy NEGATIVE NEGATIVE Urine ketones detection by automated test strip NE GATIVE NEGATIVE Urine nitrite detection by test strip NEGATIVE NEGATIVE Urine total bilirubin detection by test strip NEGA TIVE NEGATIVE Urine urobilinogen measurement by automated test strip (mass/volume) 0.2 mg/dL < = 1.0 Urine leukocyte esterase detection by dipstick NEG ATIVE NEGATIVE Automated urine sediment erythrocyte cou nt by microscopy (number/high power field) RARE NRG Automated urine sediment leukocyte count by microscopy (number/high power field) [HPF] NRG Bacteria detection in urine sediment by light microsco py NEGATIVE NRG Squamous epithelial cells detection in u rine sediment by light microscopy 2-5 NRG Crystals detection in urine sediment by light microsco py NONE NRG Casts detection in urine sediment by light microscopy NONE NRG Mucus detection in urine sediment by light microscopy NONE NRG Complete urinalysis with reflex to culture NO NRG Complete blood count (CBC) with automate d white blood cell (WBC) differential - 06/27/19 21:15 Blood leukocytes automated count (number/volume) 15.8 10*3/uL 4.3-11.0 Blood erythrocytes automated count (number/volume) 3.89 10*6/uL 4.35-5.85 Venous blood hemoglobin measurement (mass/volume) 11.7 g/dL 11.5-16.0 Blood hematocrit (volume fraction) 35 % 35-52 Automated erythrocyte mean corpuscular volume 90 [ foz_us] 80-99 Automated erythrocyte mean corpuscular h emoglobin (mass per erythrocyte) 30 pg 25-34 Automated erythrocyte mean corpuscular h emoglobin concentration measurement (mass/volume) 34 g/dL 32-36 Automated erythrocyte distribution width ratio 15. 1 % 10.0- 14.5 Automated blood platelet count (count/volume) 457 10*3/uL 130-400 Automated blood platelet mean volume measurement 9.1 [foz_us] 7.4-10.4 Automated blood neutrophils/100 leukocytes 66 % 42-75 Automated blood lymphocytes/100 leukocytes 27 % 12-44 Blood monocytes/100 leukocytes 5 % 0-12 Automated blood eosinophils/100 leukocytes 1 % 0-10 Automated blood basophils/100 leukocytes 1 % 0-10 Blood neutrophils automated count (number/volume) 10.4 10*3 1.8-7.8 Blood lymphocytes automated count (number/volume) 4.3 10*3 1.0-4.0 Blood monocytes automated count (number/volume) 0. 7 10*3 0.0-1.0 Automated eosinophil count 0.2 10*3/uL 0 .0-0.3 Automated blood basophil count (count/volume) 0.1 10*3/uL 0.0-0.1 Manual absolute plasma cell count - 06/15 08/01 21:15 Blood monocytes/100 leukocytes 4 % NRG Manual blood segmented neutrophils/100 leukocytes 71 % NRG Blood band neutrophils/100 leukocytes 1 % NRG Manual blood lymphocytes/100 leukocytes 20 % NRG Manual eosinophils/100 leukocytes in nose 3 % NRG Manual blood basophils/100 leukocytes 1 % NRG Comprehensive metabolic panel - 06/27/19 21:15 Serum or plasma sodium measurement (moles/volume) 140 mmol/L 135-145 Serum or plasma potassium measurement (moles/volume) 3.8 mmol/L 3.6-5.0 Serum or plasma chloride measurement (moles/volume) 103 mmol/L 98-107 Carbon dioxide 26 mmol/L 21-32 Serum or plasma anion gap determination (moles/volume) 11 mmol/L 5-14 Serum or plasma urea nitrogen measurement (mass/volume ) 10 mg/dL 7-18 Serum or plasma creatinine measurement (mass/volume) 0.69 mg/dL 0.60-1.30 Serum or plasma urea nitrogen/creatinine mass ratio 14 NRG Serum or plasma creatinine measurement w ith calculation of estimated glomerular filtration rate > NRG Serum or plasma glucose measurement (mass/volume) 94 mg/dL 70-105 Serum or plasma calcium measurement (mass/volume) 8.8 mg/dL 8.5-10.1 Serum or plasma total bilirubin measurement (mass/volu me) 0.2 mg/dL 0.1-1.0 Serum or plasma alkaline phosphatase kiarra surement (enzymatic activity/volume) 118 U/L 40-136 Serum or plasma aspartate aminotransfera se measurement (enzymatic activity/volume) 19 U/L 5-34 Serum or plasma alanine aminotransferase measurement (enzymatic activity/volume) 16 U/L 0-55 Serum or plasma protein measurement (mass/volume) 6.9 g/dL 6.4-8.2 Serum or plasma albumin measurement (mass/volume) 3.8 g/dL 3.2-4.5 CALCIUM CORRECTED 9.0 mg/dL 8.5-10.1 Complete urinalysis with reflex to cultu re - 07/08/19 20:45 Urine color determination YELLOW NRG Urine clarity determination SLT CLOUDY NRG Urine pH measurement by test strip 6.0 5-9 Specific gravity of urine by test strip >= 1.016-1.022 Urine protein assay by test strip, semi-quantitative NEGATIVE NEGATIVE Urine glucose detection by automated test strip NE GATIVE NEGATIVE Erythrocytes detection in urine sediment by light micr oscopy TRACE NEGATIVE Urine ketones detection by automated test strip NE GATIVE NEGATIVE Urine nitrite detection by test strip NEGATIVE NEGATIVE Urine total bilirubin detection by test strip NEGA TIVE NEGATIVE Urine urobilinogen measurement by automated test strip (mass/volume) 0.2 mg/dL < = 1.0 Urine leukocyte esterase detection by dipstick NEG ATIVE NEGATIVE Automated urine sediment erythrocyte cou nt by microscopy (number/high power field) [HPF] NRG Automated urine sediment leukocyte count by microscopy (number/high power field) [HPF] NRG Bacteria detection in urine sediment by light microsco py TRACE NRG Squamous epithelial cells detection in u rine sediment by light microscopy 10-25 NRG Crystals detection in urine sediment by light microsco py NONE NRG Casts detection in urine sediment by light microscopy NONE NRG Mucus detection in urine sediment by light microscopy SMALL NRG Complete urinalysis with reflex to culture NO NRG Complete blood count (CBC) with automate d white blood cell (WBC) differential - 07/08/19 21:53 Blood leukocytes automated count (number/volume) 14.0 10*3/uL 4.3-11.0 Blood erythrocytes automated count (number/volume) 4.15 10*6/uL 4.35-5.85 Venous blood hemoglobin measurement (mass/volume) 12.4 g/dL 11.5-16.0 Blood hematocrit (volume fraction) 37 % 35-52 Automated erythrocyte mean corpuscular volume 89 [ foz_us] 80-99 Automated erythrocyte mean corpuscular h emoglobin (mass per erythrocyte) 30 pg 25-34 Automated erythrocyte mean corpuscular h emoglobin concentration measurement (mass/volume) 34 g/dL 32-36 Automated erythrocyte distribution width ratio 14. 4 % 10.0- 14.5 Automated blood platelet count (count/volume) 424 10*3/uL 130-400 Automated blood platelet mean volume measurement 9.4 [foz_us] 7.4-10.4 Automated blood neutrophils/100 leukocytes 69 % 42-75 Automated blood lymphocytes/100 leukocytes 23 % 12-44 Blood monocytes/100 leukocytes 5 % 0-12 Automated blood eosinophils/100 leukocytes 2 % 0-10 Automated blood basophils/100 leukocytes 0 % 0-10 Blood neutrophils automated count (number/volume) 9.8 10*3 1.8-7.8 Blood lymphocytes automated count (number/volume) 3.2 10*3 1.0-4.0 Blood monocytes automated count (number/volume) 0. 7 10*3 0.0-1.0 Automated eosinophil count 0.3 10*3/uL 0 .0-0.3 Automated blood basophil count (count/volume) 0.1 10*3/uL 0.0-0.1 Comprehensive metabolic panel - 07/08/19 21:53 Serum or plasma sodium measurement (moles/volume) 138 mmol/L 135-145 Serum or plasma potassium measurement (moles/volume) 3.3 mmol/L 3.6-5.0 Serum or plasma chloride measurement (moles/volume) 101 mmol/L 98-107 Carbon dioxide 24 mmol/L 21-32 Serum or plasma anion gap determination (moles/volume) 13 mmol/L 5-14 Serum or plasma urea nitrogen measurement (mass/volume ) 7 mg/dL 7-18 Serum or plasma creatinine measurement (mass/volume) 0.86 mg/dL 0.60-1.30 Serum or plasma urea nitrogen/creatinine mass ratio 8 NRG Serum or plasma creatinine measurement w ith calculation of estimated glomerular filtration rate > NRG Serum or plasma glucose measurement (mass/volume) 110 mg/dL 70-105 Serum or plasma calcium measurement (mass/volume) 9.0 mg/dL 8.5-10.1 Serum or plasma total bilirubin measurement (mass/volu me) 0.2 mg/dL 0.1-1.0 Serum or plasma alkaline phosphatase kiarra surement (enzymatic activity/volume) 127 U/L 40-136 Serum or plasma aspartate aminotransfera se measurement (enzymatic activity/volume) 19 U/L 5-34 Serum or plasma alanine aminotransferase measurement (enzymatic activity/volume) 15 U/L 0-55 Serum or plasma protein measurement (mass/volume) 7.3 g/dL 6.4-8.2 Serum or plasma albumin measurement (mass/volume) 4.0 g/dL 3.2-4.5 CALCIUM CORRECTED 9.0 mg/dL 8.5-10.1 Lipase - 07/08/19 21:53 Lipase 21 U/L 8-78 Manual absolute plasma cell count - 06/16 09/01 21:53 Blood monocytes/100 leukocytes 5 % NRG Manual blood segmented neutrophils/100 leukocytes 64 % NRG Blood band neutrophils/100 leukocytes 1 % NRG Manual blood lymphocytes/100 leukocytes 28 % NRG Manual eosinophils/100 leukocytes in nose 2 % NRG Manual blood basophils/100 leukocytes 0 % NRG Complete blood count (CBC) with automate d white blood cell (WBC) differential - 08/10/19 23:12 Blood leukocytes automated count (number/volume) 20.0 10*3/uL 4.3-11.0 Blood erythrocytes automated count (number/volume) 4.09 10*6/uL 4.35-5.85 Venous blood hemoglobin measurement (mass/volume) 12.2 g/dL 11.5-16.0 Blood hematocrit (volume fraction) 37 % 35-52 Automated erythrocyte mean corpuscular volume 90 [ foz_us] 80-99 Automated erythrocyte mean corpuscular h emoglobin (mass per erythrocyte) 30 pg 25-34 Automated erythrocyte mean corpuscular h emoglobin concentration measurement (mass/volume) 33 g/dL 32-36 Automated erythrocyte distribution width ratio 14. 1 % 10.0- 14.5 Automated blood platelet count (count/volume) 465 10*3/uL 130-400 Automated blood platelet mean volume measurement 9.1 [foz_us] 7.4-10.4 Automated blood neutrophils/100 leukocytes 70 % 42-75 Automated blood lymphocytes/100 leukocytes 23 % 12-44 Blood monocytes/100 leukocytes 5 % 0-12 Automated blood eosinophils/100 leukocytes 1 % 0-10 Automated blood basophils/100 leukocytes 1 % 0-10 Blood neutrophils automated count (number/volume) 14.0 10*3 1.8-7.8 Blood lymphocytes automated count (number/volume) 4.6 10*3 1.0-4.0 Blood monocytes automated count (number/volume) 1. 0 10*3 0.0-1.0 Automated eosinophil count 0.2 10*3/uL 0 .0-0.3 Automated blood basophil count (count/volume) 0.1 10*3/uL 0.0-0.1 Manual absolute plasma cell count - 07/14 01/01 23:12 Blood monocytes/100 leukocytes 8 % NRG Manual blood segmented neutrophils/100 leukocytes 67 % NRG Manual blood lymphocytes/100 leukocytes 25 % NRG Blood platelet adequacy detection by light microscopy INCREASED NRG Comprehensive metabolic panel - 08/10/19 23:12 Serum or plasma sodium measurement (moles/volume) 138 mmol/L 135-145 Serum or plasma potassium measurement (moles/volume) 3.8 mmol/L 3.6-5.0 Serum or plasma chloride measurement (moles/volume) 100 mmol/L 98-107 Carbon dioxide 22 mmol/L 21-32 Serum or plasma anion gap determination (moles/volume) 16 mmol/L 5-14 Serum or plasma urea nitrogen measurement (mass/volume ) 11 mg/dL 7-18 Serum or plasma creatinine measurement (mass/volume) 0.85 mg/dL 0.60-1.30 Serum or plasma urea nitrogen/creatinine mass ratio 13 NRG Serum or plasma creatinine measurement w ith calculation of estimated glomerular filtration rate > NRG Serum or plasma glucose measurement (mass/volume) 94 mg/dL 70-105 Serum or plasma calcium measurement (mass/volume) 9.0 mg/dL 8.5-10.1 Serum or plasma total bilirubin measurement (mass/volu me) 0.2 mg/dL 0.1-1.0 Serum or plasma alkaline phosphatase kiarra surement (enzymatic activity/volume) 120 U/L 40-136 Serum or plasma aspartate aminotransfera se measurement (enzymatic activity/volume) 12 U/L 5-34 Serum or plasma alanine aminotransferase measurement (enzymatic activity/volume) 13 U/L 0-55 Serum or plasma protein measurement (mass/volume) 7.2 g/dL 6.4-8.2 Serum or plasma albumin measurement (mass/volume) 3.9 g/dL 3.2-4.5 CALCIUM CORRECTED 9.1 mg/dL 8.5-10.1 Complete urinalysis with reflex to cultu re - 11/11/19 20:00 Urine color determination YELLOW NRG Urine clarity determination CLEAR NR G Urine pH measurement by test strip 6.0 5-9 Specific gravity of urine by test strip 1.025 1.016-1.022 Urine protein assay by test strip, semi-quantitative NEGATIVE NEGATIVE Urine glucose detection by automated test strip NE GATIVE NEGATIVE Erythrocytes detection in urine sediment by light micr oscopy NEGATIVE NEGATIVE Urine ketones detection by automated test strip NE GATIVE NEGATIVE Urine nitrite detection by test strip NEGATIVE NEGATIVE Urine total bilirubin detection by test strip NEGA TIVE NEGATIVE Urine urobilinogen measurement by automated test strip (mass/volume) 0.2 mg/dL < = 1.0 Urine leukocyte esterase detection by dipstick NEG ATIVE NEGATIVE Automated urine sediment erythrocyte cou nt by microscopy (number/high power field) NONE NRG Automated urine sediment leukocyte count by microscopy (number/high power field) NONE NRG Bacteria detection in urine sediment by light microsco py TRACE NRG Squamous epithelial cells detection in u rine sediment by light microscopy 10-25 NRG Crystals detection in urine sediment by light microsco py NONE NRG Casts detection in urine sediment by light microscopy NONE NRG Mucus detection in urine sediment by light microscopy SMALL NRG Complete urinalysis with reflex to culture NO NRG Urine drug screening test - 11/11/19 20: 00 Urine phencyclidine detection by screening method NEGATIVE NEGATIVE Urine benzodiazepines detection by screening method POSITIVE NEGATIVE Urine cocaine detection NEGATIVE NEGATI VE Urine amphetamines detection by screening method N EGATIVE NEGATIVE Urine methamphetamine detection by screening method NEGATIVE NEGATIVE Urine cannabinoids detection by screening method N EGATIVE NEGATIVE Urine opiates detection by screening method NEGATI VE NEGATIVE Urine barbiturates detection NEGATIVE N EGATIVE Screening urine tricyclic antidepressants detection NEGATIVE NEGATIVE Urine methadone detection by screening method NEGA TIVE NEGATIVE Urine oxycodone detection NEGATIVE NEGA TIVE Urine propoxyphene detection NEGATIVE N EGATIVE Complete blood count (CBC) with automate d white blood cell (WBC) differential - 11/11/19 22:20 Blood leukocytes automated count (number/volume) 15.5 10*3/uL 4.3-11.0 Blood erythrocytes automated count (number/volume) 3.88 10*6/uL 4.35-5.85 Venous blood hemoglobin measurement (mass/volume) 11.6 g/dL 11.5-16.0 Blood hematocrit (volume fraction) 35 % 35-52 Automated erythrocyte mean corpuscular volume 89 [ foz_us] 80-99 Automated erythrocyte mean corpuscular h emoglobin (mass per erythrocyte) 30 pg 25-34 Automated erythrocyte mean corpuscular h emoglobin concentration measurement (mass/volume) 34 g/dL 32-36 Automated erythrocyte distribution width ratio 14. 4 % 10.0- 14.5 Automated blood platelet count (count/volume) 425 10*3/uL 130-400 Automated blood platelet mean volume measurement 9.4 [foz_us] 7.4-10.4 Automated blood neutrophils/100 leukocytes 66 % 42-75 Automated blood lymphocytes/100 leukocytes 28 % 12-44 Blood monocytes/100 leukocytes 4 % 0-12 Automated blood eosinophils/100 leukocytes 1 % 0-10 Automated blood basophils/100 leukocytes 1 % 0-10 Blood neutrophils automated count (number/volume) 10.2 10*3 1.8-7.8 Blood lymphocytes automated count (number/volume) 4.4 10*3 1.0-4.0 Blood monocytes automated count (number/volume) 0. 6 10*3 0.0-1.0 Automated eosinophil count 0.2 10*3/uL 0 .0-0.3 Automated blood basophil count (count/volume) 0.1 10*3/uL 0.0-0.1 Comprehensive metabolic panel - 11/11/19 22:20 Serum or plasma sodium measurement (moles/volume) 139 mmol/L 135-145 Serum or plasma potassium measurement (moles/volume) 3.6 mmol/L 3.6-5.0 Serum or plasma chloride measurement (moles/volume) 101 mmol/L 98-107 Carbon dioxide 25 mmol/L 21-32 Serum or plasma anion gap determination (moles/volume) 13 mmol/L 5-14 Serum or plasma urea nitrogen measurement (mass/volume ) 12 mg/dL 7-18 Serum or plasma creatinine measurement (mass/volume) 1.08 mg/dL 0.60-1.30 Serum or plasma urea nitrogen/creatinine mass ratio 11 NRG Serum or plasma creatinine measurement w ith calculation of estimated glomerular filtration rate 56 NRG Serum or plasma glucose measurement (mass/volume) 98 mg/dL 70-105 Serum or plasma calcium measurement (mass/volume) 9.2 mg/dL 8.5-10.1 Serum or plasma total bilirubin measurement (mass/volu me) 0.2 mg/dL 0.1-1.0 Serum or plasma alkaline phosphatase kiarra surement (enzymatic activity/volume) 124 U/L 40-136 Serum or plasma aspartate aminotransfera se measurement (enzymatic activity/volume) 31 U/L 5-34 Serum or plasma alanine aminotransferase measurement (enzymatic activity/volume) 25 U/L 0-55 Serum or plasma protein measurement (mass/volume) 7.3 g/dL 6.4-8.2 Serum or plasma albumin measurement (mass/volume) 4.1 g/dL 3.2-4.5 CALCIUM CORRECTED 9.1 mg/dL 8.5-10.1 Lipase - 11/11/19 22:20 Lipase 29 U/L 8-78 CRP FS - 11/11/19 22:20 CRP FS 2.34 mg/dL <0.50 Blood lactic acid measurement (moles/vol ume) - 11/11/19 22:20 Blood lactic acid measurement (moles/volume) 0.80 mmol/L 0.50-2.00 Manual absolute plasma cell count - 10/14 02/01 22:20 Blood monocytes/100 leukocytes 3 % NRG Manual blood segmented neutrophils/100 leukocytes 61 % NRG Blood band neutrophils/100 leukocytes 0 % NRG Manual blood lymphocytes/100 leukocytes 32 % NRG Manual eosinophils/100 leukocytes in nose 2 % NRG Manual blood basophils/100 leukocytes 1 % NRG Blood erythrocyte morphology finding identification NORMAL NRG Encounters ACCT No. Visit Date/Time Discharge Status Pt. Type Provider Facility Loc./Unit Complaint [id number] 06/18/2019 09:20:00 06/18/2019 23:59: 59 [facility] Outpatient MAYKEL CUMMINS [facility] [id number] 11/22/2018 11:40:00 Document Registration [id number] 11/20/2018 16:00:00 Document Registration [id number] 11/07/2018 09:20:00 Document Registration [id number] 11/11/2019 21:54:00 020 23:51:00 DIS Outpatient SAMREEN SNYDER MD Via [facility] ER FS ABD PAIN [id number] 08/10/2019 22:40:00 00:28:00 DIS Outpatient MAYCOL GAGNON DO Via [facility] ER FS STOMACHE PAIN [id number] 07/26/2019 08:44:00 23:59:59 CLS Outpatient BIA JIMENEZ MD [facility] RAD FS CHRONIC EAR DRAINAGE [id number] 07/08/2019 20:40:00 00:38:00 DIS Emergency LEIGH ANGEL MD [facility] ER FS ABD PAIN [id number] 06/27/2019 19:25:00 23:01:00 DIS Emergency LEIGH ANGEL MD [facility] ER FS ADB PAIN,LOWER BACK MICHELLE N [id number] 06/07/2019 08:40:00 23:59:59 CLS Outpatient JUVENTINO ESPINOZA DO [facility] RAD NON-TOXIC GOITE R [id number] 05/23/2019 05:55:00 10:55:00 DIS Outpatient BIA JIMENEZ MD [facility] SDC NON FUNCTIONAL EAR TUBE S [id number] 05/20/2019 12:55:00 13:31:00 DIS Outpatient BIA JIMENEZ MD [facility] PREOP BILATERAL EAR TUBES REP LACEMENT [id number] 05/16/2019 22:32:00 23:57:00 DIS Emergency ANN BLANCHARD MD [facility] ER FS ABD PAIN [id number] 04/23/2019 17:39:00 21:27:00 DIS Emergency LEIGH ANGEL MD [facility] ER FS STOMACH PAIN [id number] 02/26/2019 11:12:00 16:08:00 DIS Outpatient RAN CANTRELL DO [facility] ENDO HX COLOLITIS/DIARRHEA/GERD/GASTRITIS [id number] 02/20/2019 05:41:00 10:53:00 DIS Outpatient RAN CANTRELL DO [facility] PREOP COLONOSCOPY/EGD [id number] 02/17/2019 21:21:00 01:40:00 DIS Emergency LEIGH ANGEL MD [facility] ER FS STOMACH PAIN,VOMITING [id number] 02/10/2019 20:17:00 23:23:00 DIS Emergency JANET VENEGAS, JENIFER Cummings [facility] ER FS LOWER STOMACH PAIN [id number] 02/03/2019 13:42:00 15:26:00 DIS Outpatient SANTINO CUNNINGHAM DO [facility] ER FS STOMACH PAIN [id number] 01/29/2019 13:46:00 23:59:59 CLS Outpatient DANY RIVERA APRN [facility] LAB FS D64.9 [id number] 01/25/2019 21:22:00 17:15:00 DIS Outpatient SAFIA VENEGAS, AMBROCIO Jones [facility] 4TH ACUTE GI HEMMOR BLAYNE, ABD PAIN, LEUKOCYTOSIS [id number] 01/15/2019 00:08:00 05:23:00 DIS Emergency LEIGH ANGEL MD [facility] ER FS CHEST PAIN LT ARM PAIN [id number] 01/08/2019 20:55:00 23:09:00 DIS Emergency LEIGH ANGEL MD [facility] ER FS HEAD ACHE, EAR PAIN [id number] 11/30/2018 00:32:00 01:38:00 DIS Emergency IAN RUELAS DO [facility] ER FS FALL/LOW BACK PAIN [id number] 11/07/2018 09:50:00 23:59:59 CLS Outpatient MAYKEL CUMMINS APRN [facility] RAD FS R10.30 [id number] 09/25/2018 00:32:00 02:50:00 DIS Outpatient LIZZ HERRERA DO [facility] ER FS RT SIDE ABD PAIN [id number] 08/19/2018 19:45:00 019 00:05:00 DIS Emergency STANLEY VENEGAS, LEIGH Payne [facility] ER FS ABDOMINAL PAIN [id number] 06/19/2018 23:33:00 019 02:10:00 DIS Emergency ROMY VENEGAS, MONICA Miguel [facility] ER NECK,EAR PAIN [id number] 04/14/2016 06:34:00 016 10:40:00 DIS Outpatient BIA JIMENEZ MD Via [facility] OTITIS MEDIA [id number] 04/12/2016 05:39:00 09:48:00 DIS Outpatient BIA JIMENEZ MD [facility] PREOP OTITIS MEDIA [id number] 11/21/2013 07:57:00 014 11:03:00 DIS Outpatient BIA JIMENEZ MD Via [facility] RIGHT OTITIS MEDIA [id number] 11/12/2013 07:20:00 014 23:59:59 CLS Outpatient BIA JIMENEZ MD [facility] PREOP RIGHT OTITIS MEDIA [id number] 04/26/2013 05:39:00 013 10:10:00 DIS Outpatient [facility] [id number] 04/22/2013 14:24:00 013 23:59:59 CLS Outpatient BIA JIMENEZ MD [facility] PREOP OTITIS MEDIA [id number] 12/04/2019 14:15:00 P EN Preadmit HEBERT DELGADO [facility] RAD FS LOW BACK PAIN [id number] 04/22/2013 14:57:43 ACT Document Registration
[2019-12-06] MEDS ORDERED: NS IV 1000 ML 1,000 ML IV SCH (00:10)
[2019-12-06] MEDS ORDERED: ACETAMINOPHEN 325 MG TABLET PO ONE (00:15)
[2019-12-06] MEDS ORDERED: ONDANSETRON 4 MG/2 ML (SDV) Z0FRAN IVP ONE (00:15)
[2019-12-06] MEDS ORDERED: KETOROLAC 30 MG/ML VIAL IVP ONE (00:15)
[2019-12-06 00:25] LABS: WHITE BLOOD COUNT 20.4 10^3/uL (4.3-11.0)
[2019-12-06 00:26] LABS: BASOPHILS # (AUTO) 0.1 10^3/uL (0.0-0.1); BASOPHILS % (AUTO) 0 % (0-10); EOSINOPHILS # (AUTO) 0.1 10^3/uL (0.0-0.3); EOSINOPHILS % (AUTO) 0 % (0-10); HEMATOCRIT 36 % (35-52); LYMPHOCYTES # (AUTO) 4.4 X 10^3 (1.0-4.0); LYMPHOCYTES % (AUTO) 21 % (12-44); MEAN CORPUSCULAR HEMOGLOBIN 30 PG (25-34); MEAN CORPUSCULAR HGB CONC 33 G/DL (32-36); MEAN CORPUSCULAR VOLUME 90 FL (80-99); MEAN PLATELET VOLUME 9.5 FL (7.4-10.4); MONOCYTES # (AUTO) 0.8 X 10^3 (0.0-1.0); MONOCYTES % (AUTO) 4 % (0-12); NEUTROPHILS % (AUTO) 74 % (42-75); PLATELET COUNT 510 10^3/uL (130-400); RED CELL DISTRIBUTION WIDTH 13.6 % (10.0-14.5)
[2019-12-06] MEDS ORDERED: NS 100 ML (IVPB) BAG IV ONE (00:30)
[2019-12-06] MEDS ORDERED: HOLD METFORMIN - RECEIVED CONTRAST 20 ML VIAL IV SCH (00:30)
[2019-12-06] MEDS ORDERED: IOHEXOL 350 MG/ML 100 ML (OMNIPAQUE 350) VIAL IV ONE (00:30)
--- NOTE | 2019-12-06 00:33 | ED EENT ---
History of Present Illness General Chief Complaint: Ear Problems Stated Complaint: LEFT EAR PAIN,POST SURGERY Nursing Triage Note: PT AMBULATE TO ROOM FS02 WITH C/O LEFT EAR PAIN FOLLOWING SURGERY LAST WEEK. PT STATES SHE SPOKE WITH SURGEON AND WAS GIVEN TORADOL. PT REPORTS THAT THIS HELPED AND NOW EAR IS HURTING AGAIN. PT REPORTS TAKING TORADOL AT 2230 TONIGHT. PT STATES SHE CAN TO ED TONIGHT FOR STRONGER PAIN MEDS. History of Present Illness Date Seen by Provider: Dec 06, 2019 Time Seen by Provider: 00:00 Initial Comments The patient is a 39-year-old female with a history of hypertension, seizure disorder on ethosuximide, asthma/COPD and a history of chronic/recurrent bilateral serous otitis media for which the patient underwent a surgical procedure by ENT at [facility] 7 days ago. Per records the patient has brought with her, a week ago at [facility] she underwent a left tympanoplasty with mastoidectomy and reconstruction of the left external auditory canal. Surgery was performed by Dr. Andrea Romero. Patient was discharged home the same day with tramadol for pain. A few days ago she was having increased pain and was prescribed oral Toradol as well. Patient presents to the emergency department with concern for acute onset of significantly worsened left ear discomfort. This pain had onset within the last 2 hours and localizes to the left ear internally as well as to the mastoid region on the left. She denies any other specific symptoms aside from nausea and specifically denies fevers, vomiting, generalized headache, focal weakness, numbness, tingling, neck stiffness/pain/meningismus (patient ranges her neck fully in all dimensions without discomfort or distress), vision changes, eye pain, new or worsened throat pain (patient notes some mild discomfort with swallowing which has been present ever since the surgery week ago, likely from being intubated periprocedurally, which is not worse today), change in voice, if culture swallowing, shortness of breath. She is alert and oriented and in no acute distress upon initial assessment here in the emergency department. She is somewhat tearful. Vital signs are appropriate. She ambulated in with a narrow, steady gait. Allergies and Home Medications Allergies Coded Allergies: gabapentin (Verified Allergy, Unknown, 01/25/19) metoclopramide (Unverified Allergy, Unknown, "CAUSES PT TO LOSE CONTROL OF MUSCLES", 01/25/19) Home Medications Albuterol Sulfate 1 Puff Puff, 2 PUFF IH Q4H PRN for WHEEZING, (Reported) 1 PUFF = 90 MCG Baclofen 10 Mg Tablet, 10 MG PO Q8H PRN for back pain/spasm Prescribed by: LEIGH ANGEL on 06/27/192245 Ciprofloxacin HCl 500 Mg Tablet, 500 MG PO BID Prescribed by: MAYCOL GAGNON on 08/10/192346 Estradiol 1 Mg Tablet, 1 MG PO DAILY, (Reported) Ethosuximide 250 Mg Capsule, 250 MG PO HS, (Reported) Fluoxetine HCl 40 Mg Capsule, 40 MG PO DAILY, (Reported) Fluticasone/Salmeterol 1 Each Blst.w.dev, 1 EACH IH BID, (Reported) Gentamicin Sulfate 5 Ml Drops, 3 DROPS EACH EAR BID Prescribed by: ALLAN DURON on 05/23/19927 Hydrocodone/Acetaminophen 1 Each Tablet, 1 EACH PO Q4H Prescribed by: MAYCOL GAGNON on 08/10/192346 Hyoscyamine Sulfate 0.125 Mg Tab.rapdis, 0.125 MG PO Q4H PRN for DIARRHEA diarrhea associated with abd pain Prescribed by: SAMREEN SNYDER on 11/11/19 234 Lisinopril 20 Mg Tablet, 20 MG PO DAILY, (Reported) Metronidazole 500 Mg Tablet, 500 MG PO BID Prescribed by: MAYCOL GAGNON on 08/10/192346 Omeprazole 40 Mg Capsule.dr, 40 MG PO DAILY, (Reported) Ondansetron 4 Mg Tab.rapdis, 4 MG PO TID Prescribed by: MAYCOL GAGNON on 08/10/192346 Patient Home Medication List Home Medication List Reviewed: Yes Review of Systems Review of Systems Constitutional: see HPI All Other Systems Reviewed Negative Unless Noted: Yes (Negative excepted noted.) Past [place] Hx Past Med/Social Hx: Reviewed Nursing Past Med/Soc Hx Patient Social History Alcohol Use: Denies Use Recreational Drug Use: No Smoking Status: Current Everyday Smoker Type Used: Cigarettes 2nd Hand Smoke Exposure: No Recent Foreign Travel: No Contact w/Someone Who Travel: No Recent Infectious Disease Expo: No Recent Hopitalizations: No Physical Abuse: No Sexual Abuse: No Mistreated: No Fear: No Immunizations Up To Date Tetanus Booster (TDap): Unknown Seasonal Allergies Seasonal Allergies: Yes Past Medical History Surgeries: Yes (dental extractions, dxls, bmt, 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, LEFT EAR) Gallbladder, Hysterectomy, 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 Respiratory: Yes Asthma, COPD Currently Using CPAP: No Currently Using BIPAP: No Cardiac: Yes Heart Murmur, Hypertension Neurological: Yes Headaches /Migraines, Seizure Disorder 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 Disorders: Yes Female 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 Disorders: 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 [employer] History: Hysterectomy, 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 Sexually Transmitted Disease: No Genitourinary: Yes Kidney Stones Gastrointestinal: Yes Colitis, Gastroesophageal Reflux, Diverticulosis, Polyps, Ulcer Musculoskeletal: Yes (spina bifida) Arthritis, Scoliosis, Chronic Back Pain Endocrine: No HEENT: Yes Chronic Ear Infection Hearing Impairment: Denies, Hard of Hearing Cancer: No Psychosocial: Yes Anxiety, Depression Integumentary: No Blood Disorders: No Family Medical History Reviewed Nursing Family Hx No Pertinent Family Hx, GI Disease Physical Exam Vital Signs Vital Signs - First Documented 12/05/19 23:56 Temp 37.0 Pulse 94 Resp 17 B/P (MAP) 167/127 (140) O2 Delivery Room Air Height, Weight, BMI Height: 5'0" Weight: 235lbs. 0oz. 106.721294wl; 45.00 BMI Method:Stated General Appearance: no apparent distress This is a 39-year-old female appearing older than her stated age, nontoxic and in no acute distress. Head is normocephalic and atraumatic. Neck is supple and nontender. Oropharynx is moist. There is no posterior oropharyngeal erythema, tonsillar exudates or swelling or uvular deviation and patient is tolerating secretions very well and speaking in a normal tone of voice. No acute intraoral or posterior oropharyngeal abnormality identified. Examination of the left ear is remarkable for mild tenderness to palpation of the tragus, mild tenderness over the mastoid region without bogginess, erythema, warmth or swelling, sutures in place just behind the pinna appearing without erythema, warmth, swelling, purulent drainage or dehiscence. Left tympanic membrane is not visualizable secondary to what appears to be some packing in the way. Lungs are clear to auscultation at all stations. There is a normal S1 and S2 without rubs or gallops and capillary refill is appropriate, less than 2 seconds globally. Abdomen is soft, nontender and nondistended. Skin is warm and dry without cyanosis, clubbing or edema. Psychiatrically, the patient demonstrates appropriate mood and affect and is alert. Progress/Results/Core Measures Results/Orders Lab Results Laboratory Tests Test 12/06/19 00:17 Range/Units White Blood Count 20.4 H 4.3-11.0 10^3/uL Red Blood Count 4.01 L 4.35-5.85 10^6/uL Hemoglobin 12.0 11.5-16.0 G/DL Hematocrit 36 35-52 % Mean Corpuscular Volume 90 80-99 FL Mean Corpuscular Hemoglobin 30 25-34 PG Mean Corpuscular Hemoglobin Concent 33 32-36 G/DL Red Cell Distribution Width 13.6 10.0-14.5 % Platelet Count 510 H 130-400 10^3/uL Mean Platelet Volume 9.5 7.4-10.4 FL Neutrophils (%) (Auto) 74 42-75 % Lymphocytes (%) (Auto) 21 12-44 % Monocytes (%) (Auto) 4 0-12 % Eosinophils (%) (Auto) 0 0-10 % Basophils (%) (Auto) 0 0-10 % Neutrophils # (Auto) 15.0 H 1.8-7.8 X 10^3 Lymphocytes # (Auto) 4.4 H 1.0-4.0 X 10^3 Monocytes # (Auto) 0.8 0.0-1.0 X 10^3 Eosinophils # (Auto) 0.1 0.0-0.3 10^3/uL Basophils # (Auto) 0.1 0.0-0.1 10^3/uL Neutrophils % (Manual) 81 % Lymphocytes % (Manual) 19 % Toxic Granulation 4+ Platelet Estimate INCREASED Tear Drop Cells SLIGHT Erythrocyte Sedimentation Rate 41 H 0-20 MM/HR Sodium Level 138 135-145 MMOL/L Potassium Level 4.0 3.6-5.0 MMOL/L Chloride Level 104 98-107 MMOL/L Carbon Dioxide Level 22 21-32 MMOL/L Anion Gap 12 5-14 MMOL/L Blood Urea Nitrogen 13 7-18 MG/DL Creatinine 0.73 0.60-1.30 MG/DL Estimat Glomerular Filtration Rate > 60 BUN/Creatinine Ratio 18 Glucose Level 148 H 70-105 MG/DL Calcium Level 8.9 8.5-10.1 MG/DL Corrected Calcium 8.7 8.5-10.1 MG/DL Total Bilirubin < 0.2 0.1-1.0 MG/DL Aspartate Amino Transf (AST/SGOT) 26 5-34 U/L Alanine Aminotransferase (ALT/SGPT) 20 0-55 U/L Alkaline Phosphatase 120 40-136 U/L C-Reactive Protein 2.12 H <0.50 MG/DL Total Protein 7.5 6.4-8.2 GM/DL Albumin 4.2 3.2-4.5 GM/DL My Orders Orders - JENIFER GONZALES MD Cbc With Automated Diff (12/06/19 00:10) Comprehensive Metabolic Panel (12/06/19 00:10) Erythrocyte Sedimentation Rate (12/06/19 00:10) Ct Maxillofacial W (12/06/19 00:10) Ed Iv/Invasive Line Start (12/06/19 00:10) Ns Iv 1000 Ml (Sodium Chloride 0.9%) (12/06/19 00:10) Ondansetron Injection (Zofran Injectio (12/06/19 00:15) Ketorolac Injection (Toradol Injection) (12/06/19 00:15) Acetaminophen Tablet/Caplet (Tylenol T (12/06/19 00:15) Iohexol Injection (Omnipaque 350 Mg/Ml 1 (12/06/19 00:30) Received Contrast (Hold Metformin- Contr (12/06/19 00:30) Ns (Ivpb) (Sodium Chloride 0.9% Ivpb Bag (12/06/19 00:30) Manual Differential (12/06/19 00:17) Crp Fs (12/06/19 00:45) Medications Given in ED Current Medications Medications Dose Ordered Sig/Brissa Route Start Time Stop Time Status Last Admin Dose Admin Acetaminophen 975 mg ONCE ONCE PO 12/06/19 00:15 12/06/19 00:17 DC 12/06/19 00:25 975 MG Iohexol 80 ml ONCE ONCE IV 12/06/19 00:30 12/06/19 00:31 DC 12/06/19 00:38 80 ML Ketorolac Tromethamine 30 mg ONCE ONCE IVP 12/06/19 00:15 12/06/19 00:17 DC 12/06/19 00:25 30 MG Ondansetron HCl 4 mg ONCE ONCE IVP 12/06/19 00:15 12/06/19 00:17 DC 12/06/19 00:25 4 MG Sodium Chloride 100 ml ONCE ONCE IV 12/06/19 00:30 12/06/19 00:31 DC 12/06/19 00:38 100 ML Vital Signs/I&O 12/05/19 23:56 Temp 37.0 Pulse 94 Resp 17 B/P (MAP) 167/127 (140) O2 Delivery Room Air Blood Pressure Mean: 140 Progress Progress Note : Time: 00:37 Progress Note Middle-aged female who presents one week after extensive surgical instrumentation of her left ear and mastoid region with acute worsening of her postoperative pain over the last couple of hours. We will place IV and give IV fluids and medication for discomfort and nausea and we will check a contrasted CT of the maxillofacial region to rule out postoperative abscess or other acute process. Anticipate a conversation with the on-call ENT surgeon at for disposition. 0130: Laboratory workup is remarkable for leukocytosis to about 20,000 as well as mild elevations in ESR and CRP. Per records, patient has had a fairly significant leukocytosis at every recent visit to this emergency department. When asked about this she states that this has been a chronic issue for her for over a year and has apparently been attributed to ongoing inflammation from her ear issues. CT imaging clouded to [facility] and I spoke to the patient's operating ENT surgeon, Dr. Andrea Romero, who reviewed the imaging in detail with me. From his standpoint, he states that the area of concern appears appropriately postoperative, with packing material in place, and that he sees no evidence of an acute process by imaging. Given leukocytosis, he does recommend covering with an oral fluoroquinolone antibiotic. We'll place the patient on Cipro. We will prescribe a few stronger pain pills that the patient may take as needed. Dr. Romero requests that the patient contact his office later today after it opens to speak with him about next steps. Note is made of a preliminary CT read by the [employer] radiologist which raises concern for necrotizing otitis externa versus other acute infectious process. Dr. Romero of ENT surgery states that the changes that are seen on the CT scan are expected postoperatively in a patient who has undergone the procedure Jazzy did a week ago, and do not reflect necrotizing otitis externa or other acute process of significant concern. Given this, feel that it is reasonable to dismiss the patient home with empiric oral antibiotic coverage to follow-up tomorrow with her ENT surgeon as per the plan above. The patient understands that if she feels worse is that of better or develops other new symptoms of concern that she should return to the emergency department right away for reevaluation. All questions are answered. Departure Impression Primary Impression: Postoperative pain Additional Impression: Acute pain of left ear Disposition: HOME, SELF-CARE Condition: Improved Departure-Patient Inst. Referrals: [facility]/ (PCP) Primary Care Physician MAYKEL CUMMINS APRN (Family) Primary Care Physician Patient Instructions: Managing Pain After Surgery Add. Discharge Instructions: Please contact Dr. Romero, your ENT surgeon, later today when his office opens as discussed. Please let the senior clinical data analyst know that Dr. Romero wants to speak with you when you call. Take the antibiotic as prescribed until the prescription is gone. You may take a Percocet pill for breakthrough pain every 6 hours as needed. Return to the emergency department right away with worsening symptoms of any kind or any other new symptoms of concern. Scripts Oxycodone HCl/Acetaminophen (Percocet 5-325 mg Tablet) 1 Each Tablet 1 TAB PO Q6H for PAIN-MODERATE MDD 6 TABS for 7 Days, #9 TAB Prov: JENIFER GONZALES MD 12/06/19 Ciprofloxacin HCl (Ciprofloxacin HCl) 500 Mg Tablet 500 MG PO BID for 7 Days, #14 TAB Prov: JENIFER GONZALES MD 12/06/19 JENIFER GONZALES MD Dec 06, 2019 00:33
[2019-12-06 00:42] LABS: ERYTHROCYTE SEDIMENTATION RATE 41 MM/HR (0-20)
[2019-12-06 00:51] LABS: ALANINE AMINOTRANSFERASE 20 U/L (0-55); ALBUMIN 4.2 GM/DL (3.2-4.5); ALKALINE PHOSPHATASE 120 U/L (40-136); BILIRUBIN,TOTAL < 0.2 MG/DL (0.1-1.0); BUN/CREATININE RATIO 18; CALCIUM 8.9 MG/DL (8.5-10.1); CARBON DIOXIDE 22 MMOL/L (21-32); CHLORIDE 104 MMOL/L (98-107); CREATININE SERUM 0.73 MG/DL (0.60-1.30); GFR ESTIMATED > 60; GLUCOSE 148 MG/DL (70-105); SODIUM 138 MMOL/L (135-145); TOTAL PROTEIN 7.5 GM/DL (6.4-8.2)
[2019-12-06 00:52] LABS: LYMPHOCYTES % (MANUAL) 19 %; NEUTROPHILS % (MANUAL) 81 %; PLATELET ESTIMATE INCREASED; TEAR DROP CELLS SLIGHT; TOXIC GRANULATION/VACUOLAZATIO 4+
[2019-12-06] MEDS ORDERED: OXYC1TAB87 PO (01:58)
[2019-12-06] MEDS ORDERED: CIPR500T4 PO (01:58)
[2019-12-06] MEDS ORDERED: oxyCODONE/APAP 5/325MG (PERCOCET 5) TABLET PO ONE (02:00)
[2019-12-06] MEDS ORDERED: CIPROFLOXACIN 500 MG (CIPRO) TABLET PO SCH (02:00)
[2019-12-06 02:09] VITALS: BP 115/82
--- NOTE | 2019-12-06 07:38 | Diagnostic Imaging Report ---
PROCEDURE: CT maxillofacial with contrast. TECHNIQUE: After intravenous administration of contrast, axial images were obtained through the face and reformatted into coronal and sagittal planes. Auto Exposure Controls were utilized during the CT exam to meet ALARA standards for radiation dose reduction. INDICATION: Left ear pain. Recent surgery. One week postop tympanoplasty and mastoidectomy. COMPARISON: None. FINDINGS: Postsurgical changes of tympanoplasty and mastoidectomy are visualized on the left. Fluid is seen throughout the left mastoid air cells, left middle ear, and left external auditory canal. No loculated collection is seen to suggest abscess. Surrounding inflammatory changes are noted. No evidence of osseous destruction. No associated intracranial process is seen with these findings. A small amount of fluid is seen in the right mastoid air cells. The right middle ear and external auditory canal are well pneumatized. The paranasal sinuses are well pneumatized. No evidence of acute facial fracture. The mandible, zygomatic arches, and pterygoid plates are intact. The nasal bones and bony nasal septum demonstrate no acute fracture. The bony nasal septum is midline. The globes and orbits are symmetric and unremarkable. IMPRESSION: 1. Postsurgical changes of left mastoidectomy and tympanoplasty. Surrounding inflammatory changes are seen without loculated fluid collection to suggest abscess. No destructive process is seen in the adjacent osseous structures. No evidence of inflammatory changes in the adjacent intracranial structures. 2. No acute facial fractures. Agree with overnight report. Dictated by: Dictated on workstation # [id number]
== END 2019-12-06 02:09 | disposition home or self-care (01) ==
LOC: EDUNIT# 23:49 → ER FS 23:51
DX: G89.29 Other chronic pain (principal); H92.02 Otalgia, left ear; J44.9 Chronic obstructive pulmonary disease, unspecified; I10 Essential (primary) hypertension; G40.909 Epilepsy, unspecified, not intractable, without status epilepticus; K21.9 Gastro-esophageal reflux disease without esophagitis; M54.9 Dorsalgia, unspecified; F41.9 Anxiety disorder, unspecified; F32.9 Major depressive disorder, single episode, unspecified; F17.210 Nicotine dependence, cigarettes, uncomplicated; Z88.8 Allergy status to other drugs, medicaments and biological substances; Z79.52 Long term (current) use of systemic steroids; Z79.51 Long term (current) use of inhaled steroids
CPT/HCPCS: 36415; 70487; 80053; 85007; 85027; 85652; 86141; 96361; 96374; 96375

== ENCOUNTER 2019-12-10 22:10 | Emergency (ER) | payer MEDICAID ==
[~2019-12-10] VITALS: Ht 152.4 cm; Wt 106.1 kg
[~2019-12-10 22:10] MED LIST changes: +HYDR-3812 PO; -HYDR-83 PO; +OXYC1TAB87 PO
[2019-12-10 22:23] VITALS: BP 151/93
[2019-12-10] MEDS ORDERED: RX-ONDANSETRON 4 MG ODT (ZOFRAN) PPK #4 PO STA (22:27)
[2019-12-10] MEDS ORDERED: ONDANSETRON 4 MG (ZOFRAN) ORAL DISSOLVE TAB PO STA (22:27)
--- NOTE | 2019-12-10 22:32 | ED EENT ---
History of Present Illness General Chief Complaint: Ear Problems Stated Complaint: NAUSEA,VOMITING,EAR PAIN History of Present Illness Date Seen by Provider: Dec 10, 2019 Time Seen by Provider: 22:15 Timing/Duration: this afternoon Severity: mild Location: ear (L) Prearrival Treatment: prescription meds Patient evidently vomited and felt like there was some bleeding in her ear she is postop almost 2 weeks tympanoplasty. Some bleeding behind pinna no bleeding from the ear itself Allergies and Home Medications Allergies Coded Allergies: gabapentin (Verified Allergy, Unknown, 01/25/19) metoclopramide (Unverified Allergy, Unknown, "CAUSES PT TO LOSE CONTROL OF MUSCLES", 01/25/19) Home Medications Albuterol Sulfate 1 Puff Puff, 2 PUFF IH Q4H PRN for WHEEZING, (Reported) 1 PUFF = 90 MCG Baclofen 10 Mg Tablet, 10 MG PO Q8H PRN for back pain/spasm Prescribed by: LEIGH ANGEL on 06/27/192245 Ciprofloxacin HCl 500 Mg Tablet, 500 MG PO BID Prescribed by: MAYCOL GAGNON on 08/10/192346 Ciprofloxacin HCl 500 Mg Tablet, 500 MG PO BID Prescribed by: JENIFER GONZALES on 12/06/19 0158 Estradiol 1 Mg Tablet, 1 MG PO DAILY, (Reported) Ethosuximide 250 Mg Capsule, 250 MG PO HS, (Reported) Fluoxetine HCl 40 Mg Capsule, 40 MG PO DAILY, (Reported) Fluticasone/Salmeterol 1 Each Blst.w.dev, 1 EACH IH BID, (Reported) Gentamicin Sulfate 5 Ml Drops, 3 DROPS EACH EAR BID Prescribed by: ALLAN DURON on 05/23/19 09 Hydrocodone/Acetaminophen 1 Each Tablet, 1 EACH PO Q4H Prescribed by: MAYCOL GAGNON on 08/10/192346 Hyoscyamine Sulfate 0.125 Mg Tab.rapdis, 0.125 MG PO Q4H PRN for DIARRHEA diarrhea associated with abd pain Prescribed by: SAMREEN SNYDER on 11/11/19 234 Lisinopril 20 Mg Tablet, 20 MG PO DAILY, (Reported) Metronidazole 500 Mg Tablet, 500 MG PO BID Prescribed by: MAYCOL GAGNON on 08/10/192346 Omeprazole 40 Mg Capsule.dr, 40 MG PO DAILY, (Reported) Ondansetron 4 Mg Tab.rapdis, 4 MG PO TID Prescribed by: MAYCOL GAGNON on 08/10/19 9137 Oxycodone HCl/Acetaminophen 1 Each Tablet, 1 TAB PO Q6H Prescribed by: JENIFER GONZALES on 12/06/19 0158 Patient Home Medication List Home Medication List Reviewed: Yes Review of Systems Review of Systems Constitutional: No chills, No fever Ears: Pain, Bloody Discharge Nose: no symptoms reported Mouth: no symptoms reported Throat: no symptoms reported Respiratory: no symptoms reported Cardiovascular: no symptoms reported Past Kcvfrji-Doobfg-Ceuydr Hx Past Med/Social Hx: Reviewed Nursing Past Med/Soc Hx Patient Social History Alcohol Use: Denies Use Recreational Drug Use: No Smoking Status: Current Everyday Smoker Type Used: Cigarettes 2nd Hand Smoke Exposure: No Recent Foreign Travel: No Contact w/Someone Who Travel: No Recent Hopitalizations: No Physical Abuse: No Sexual Abuse: No Mistreated: No Fear: No Immunizations Up To Date Tetanus Booster (TDap): Unknown Seasonal Allergies Seasonal Allergies: Yes Past Medical History Surgeries: Yes (dental extractions, dxls, bmt, 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, LEFT EAR) Gallbladder, Hysterectomy, 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 Respiratory: Yes Asthma, COPD Currently Using CPAP: No Currently Using BIPAP: No Cardiac: Yes Heart Murmur, Hypertension Neurological: Yes Headaches /Migraines, Seizure Disorder 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 Disorders: Yes Female 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 Disorders: 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 0oz. [phone]; 45.00 BMI Method:Stated General Appearance: WD/WN, no apparent distress Ears: left ear other (A shows incision behind the ear small amount of dried blood minimal separation eardrum itself canal is clear minimal if any blood along the edge of the tympanoplasty.) Mouth/Throat: normal mouth inspection, pharynx normal Neck: non-tender, normal inspection Cardiovascular: regular rate, rhythm, no murmur Respiratory: lungs clear, normal breath sounds Departure Communication (Admissions) A looks appropriate for. We'll use Zofran for her nausea. Impression Primary Impression: Ear pain, left Disposition: 01 HOME, SELF-CARE Condition: Stable Departure-Patient Inst. Referrals: [facility]/ (PCP) Primary Care Physician MAYKEL CUMMINS APRN (Family) Primary Care Physician MARIA ESTHER HARDIN JR, MD Dec 10, 2019 22:32
--- NOTE | 2019-12-10 22:34 | NUR ---
[place] alvarado in [facility] - 12/10/19 at 2234 by [facility].
== END 2019-12-10 22:34 | disposition home or self-care (01) ==
LOC: EDUNIT# 22:10 → ER FS 22:11
DX: H92.02 Otalgia, left ear (principal); G89.29 Other chronic pain; M54.9 Dorsalgia, unspecified; J44.9 Chronic obstructive pulmonary disease, unspecified; G40.909 Epilepsy, unspecified, not intractable, without status epilepticus; F32.9 Major depressive disorder, single episode, unspecified; I10 Essential (primary) hypertension; K21.9 Gastro-esophageal reflux disease without esophagitis; Z88.8 Allergy status to other drugs, medicaments and biological substances; F17.210 Nicotine dependence, cigarettes, uncomplicated; Z79.51 Long term (current) use of inhaled steroids; Z79.891 Long term (current) use of opiate analgesic
CPT/HCPCS: 99283

== ENCOUNTER 2019-12-30 22:04 | Emergency (ER) | payer MEDICAID ==
[~2019-12-30] VITALS: Ht 150.4 cm; Wt 107.0 kg
[2019-12-30 22:08] VITALS: BP 170/98
--- NOTE | 2019-12-30 22:22 | ED Back Pain ---
General Chief Complaint: Back Problems Stated Complaint: LOWER BACK PAIN History of Present Illness Date Seen by Provider: Dec 30, 2019 Time Seen by Provider: 22:17 Initial Comments 39-year-old female presents with chronic lower back pain. Patient has had back pain for a long time. She is tried physical therapy and other modalities in the past. She reports that started her nose that yesterday she had a long car ride today and it is worse today. She has no acute injuries. Patient has no neurologic complaints. She has no bowel or bladder issues. Allergies and Home Medications Allergies Coded Allergies: gabapentin (Verified Allergy, Unknown, 01/25/19) metoclopramide (Unverified Allergy, Unknown, "CAUSES PT TO LOSE CONTROL OF MUSCLES", 01/25/19) Home Medications Albuterol Sulfate 1 Puff Puff, 2 PUFF IH Q4H PRN for WHEEZING, (Reported) 1 PUFF = 90 MCG Baclofen 10 Mg Tablet, 10 MG PO Q8H PRN for back pain/spasm Prescribed by: LEIGH ANGEL on 06/27/192245 Ciprofloxacin HCl 500 Mg Tablet, 500 MG PO BID Prescribed by: MAYCOL GAGNON on 08/10/192346 Ciprofloxacin HCl 500 Mg Tablet, 500 MG PO BID Prescribed by: JENIFER GONZALES on 12/06/19 0158 Estradiol 1 Mg Tablet, 1 MG PO DAILY, (Reported) Ethosuximide 250 Mg Capsule, 250 MG PO HS, (Reported) Fluoxetine HCl 40 Mg Capsule, 40 MG PO DAILY, (Reported) Fluticasone/Salmeterol 1 Each Blst.w.dev, 1 EACH IH BID, (Reported) Gentamicin Sulfate 5 Ml Drops, 3 DROPS EACH EAR BID Prescribed by: ALLAN DURON on 05/23/19 0928 Hydrocodone/Acetaminophen 1 Each Tablet, 1 EACH PO Q4H Prescribed by: MAYCOL GAGNON on 08/10/192346 Hyoscyamine Sulfate 0.125 Mg Tab.rapdis, 0.125 MG PO Q4H PRN for DIARRHEA diarrhea associated with abd pain Prescribed by: SAMREEN SNYDER on 11/11/19 234 Lisinopril 20 Mg Tablet, 20 MG PO DAILY, (Reported) Metronidazole 500 Mg Tablet, 500 MG PO BID Prescribed by: MAYCOL GAGNON on 08/10/192346 Omeprazole 40 Mg Capsule.dr, 40 MG PO DAILY, (Reported) Ondansetron 4 Mg Tab.rapdis, 4 MG PO TID Prescribed by: MAYCOL GAGNON on 08/10/192346 Oxycodone HCl/Acetaminophen 1 Each Tablet, 1 TAB PO Q6H Prescribed by: JENIFER GONZALES on 12/06/19 0158 Patient Home Medication List Home Medication List Reviewed: Yes Review of Systems Constitutional: No chills, No fever EENTM: no symptoms reported Respiratory: no symptoms reported Cardiovascular: no symptoms reported Gastrointestinal: no symptoms reported Genitourinary: no symptoms reported Musculoskeletal: see HPI, back pain Past Hkgfjzs-Bsptzy-Wsftif Hx Past Med/Social Hx: Reviewed Nursing Past Med/Soc Hx Patient Social History Type Used: Cigarettes 2nd Hand Smoke Exposure: No Recent Foreign Travel: No Contact w/Someone Who Travel: No Recent Hopitalizations: No Immunizations Up To Date Tetanus Booster (TDap): Unknown Seasonal Allergies Seasonal Allergies: Yes Past Medical History Surgeries: Yes (dental extractions, dxls, bmt, 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, LEFT EAR) Gallbladder, Hysterectomy, 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 Respiratory: Yes Asthma, COPD Currently Using CPAP: No Currently Using BIPAP: No Cardiac: Yes Heart Murmur, Hypertension Neurological: Yes Headaches /Migraines, Seizure Disorder 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 Disorders: Yes Female 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 Disorders: 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 0oz. 106.387053va; 45.00 BMI Method:Stated General Appearance: No Apparent Distress, Obese Cardiovascular: Regular Rate, Rhythm Respiratory: Lungs Clear, Normal Breath Sounds Gastrointestinal: Other (morbidly obese) Back: No Vertebral Tenderness, Other (bilateral lower lumbar tenderness) Extremity: Normal Capillary Refill, Normal Inspection Neurologic/Psychiatric: Alert, Oriented x3, No Motor/Sensory Deficits, Normal Mood/Affect Progress/Results/Core Measures Progress Progress Note : Time: 22:23 Progress Note Chart review shows a long standing lower back pain. Patient has had multiple visits to the ER for chronic issues. I discussed with patient that I would give her a shot of Toradol and Norflex otherwise if she needs anything stronger she will need to follow-up with her primary care provider. That we do not provide chronic pain medications or treatment chronic illnesses in the emergency room. I also discussed with patient that she may once again need to reconsider physical therapy and also should consider some weight loss due to her morbid obesity which is likely causing back strain. Patient is stable and will be discharged home Departure Impression Primary Impression: Chronic back pain Qualified Codes: M54.5 - Low back pain; G89.29 - Other chronic pain Disposition: 01 HOME, SELF-CARE Condition: Stable Departure-Patient Inst. Referrals: [facility]/ (PCP) Primary Care Physician MAYKEL CUMMINS APRN (Family) Primary Care Physician Patient Instructions: MANAGING YOUR CHRONIC PAIN, Low Back Pain (DC) Add. Discharge Instructions: Emergency department focuses on treating and ruling out life-threatening diseases. Whenever possible, a diagnosis is given. However, most patients are given an impression based on their history, physical exam, and workup during your brief time in the ER. Information about probable diagnosis and other educational material has been provided. Please take the time to read and understand this information. It is very important that you follow up with a physician as discussed during the visit today. Failure to adhere to your follow-up instructions may lead to severe disability, injury, or so please make sure to keep your appointments or obtain one as requested. Please keep in mind the emergency department is not designed to your primary care or "family doctor" and nonurgent issues are best evaluated by an outpatient physician All discharge instructions reviewed with patient and/or family. Voiced understanding. DIONI MALONEY DO Dec 30, 2019 22:22
[2019-12-30] MEDS ORDERED: ORPHENADRINE 60 MG/2 ML (NORFLEX) AMP (ED ONLY) IM STA (22:25)
[2019-12-30] MEDS ORDERED: KETOROLAC 30 MG/ML VIAL IM STA (22:25)
== END 2019-12-30 22:33 | disposition home or self-care (01) ==
LOC: EDUNIT# 22:04 → ER FS 22:05
DX: G89.29 Other chronic pain (principal); M54.5 Low back pain; I10 Essential (primary) hypertension; K21.9 Gastro-esophageal reflux disease without esophagitis; J44.9 Chronic obstructive pulmonary disease, unspecified; G40.909 Epilepsy, unspecified, not intractable, without status epilepticus; G43.909 Migraine, unspecified, not intractable, without status migrainosus; F41.9 Anxiety disorder, unspecified; F32.9 Major depressive disorder, single episode, unspecified; Z88.8 Allergy status to other drugs, medicaments and biological substances; Z79.891 Long term (current) use of opiate analgesic; Z79.52 Long term (current) use of systemic steroids; Z79.51 Long term (current) use of inhaled steroids
CPT/HCPCS: 99284

== ENCOUNTER 2020-04-06 21:25 | Emergency (ER) | payer MEDICAID ==
[~2020-04-06 21:25] MED LIST changes: -HYDR-3812 PO
[2020-04-06] MEDS ORDERED: DICYCLOMINE 10 MG/ML (BENTYL) 2 ML AMP IM STA (21:45)
[2020-04-06] MEDS ORDERED: fentaNYL INJECTION 100 MCG/2 ML AMP IM STA (21:45)
[2020-04-06 21:51] LABS: CLARITY,URINE SL CLOUDY; COLOR,URINE DARK YELLOW
[2020-04-06 21:52] LABS: BACTERIA,URINE FEW /HPF; BILIRUBIN,URINE NEGATIVE (NEGATIVE); GLUCOSE, URINE (UA) NEGATIVE (NEGATIVE); KETONES,URINE NEGATIVE (NEGATIVE); LEUKOCYTE ESTERASE ,URINE NEGATIVE (NEGATIVE); NITRITE,URINE NEGATIVE (NEGATIVE); PROTEIN,URINE NEGATIVE (NEGATIVE); SQUAMOUS EPITHELIAL CELL,UR 25-50 /HPF; WBC,URINE 0-2 /HPF
--- NOTE | 2020-04-06 21:53 | ED Abdominal Pain ---
General Chief Complaint: Abdominal/GI Problems Stated Complaint: ABD PAIN Nursing Triage Note: Pt complaining of mid abd pain that started around 2015 tonight. Sepsis Screen: No Definite Risk Source of Information: Patient History of Present Illness Date Seen by Provider: Apr 06, 2020 Time Seen by Provider: 21:27 Initial Comments 39-year-old female presenting with periumbilical pain. She states the pain started approximately 45 minutes to 1 hour prior to arrival. She states that it is worse with movement and palpation. She denies any nausea or vomiting. She he has had a normal bowel movement today. She did have diarrhea last week but it resolved when she restarted her seizure medicine. She denies any vaginal bleeding or discharge. She has no pain with urination. She denies any black or tarry stools. She has no bright red blood with stool. She denies eating anything different or abnormal than usual. She denies any fever or chills. Allergies and Home Medications Allergies Coded Allergies: gabapentin (Verified Allergy, Unknown, 01/25/19) metoclopramide (Unverified Allergy, Unknown, "CAUSES PT TO LOSE CONTROL OF MUSCLES", 01/25/19) Home Medications Albuterol Sulfate 1 Puff Puff, 2 PUFF IH Q4H PRN for WHEEZING, (Reported) 1 PUFF = 90 MCG Baclofen 10 Mg Tablet, 10 MG PO Q8H PRN for back pain/spasm Prescribed by: LEIGH ANGEL on 06/27/19 2246 Ciprofloxacin HCl 500 Mg Tablet, 500 MG PO BID Prescribed by: MAYCOL GAGNON on 08/10/19 2347 Ciprofloxacin HCl 500 Mg Tablet, 500 MG PO BID Prescribed by: JENIFER GONZALES on 12/06/19 0158 Dicyclomine HCl 20 Mg Tablet, 20 MG PO Q6H PRN for abdominal pain Prescribed by: LEIGH ANGEL on 04/06/20 2335 Estradiol 1 Mg Tablet, 1 MG PO DAILY, (Reported) Ethosuximide 250 Mg Capsule, 250 MG PO HS, (Reported) Fluoxetine HCl 40 Mg Capsule, 40 MG PO DAILY, (Reported) Fluticasone/Salmeterol 1 Each Blst.w.dev, 1 EACH IH BID, (Reported) Gentamicin Sulfate 5 Ml Drops, 3 DROPS EACH EAR BID Prescribed by: ALLAN DURON on 05/23/19 0928 Hydrocodone/Acetaminophen 1 Each Tablet, 1 EACH PO Q4H Prescribed by: MAYCOL GAGNON on 08/10/192346 Hyoscyamine Sulfate 0.125 Mg Tab.rapdis, 0.125 MG PO Q4H PRN for DIARRHEA diarrhea associated with abd pain Prescribed by: SAMREEN SNYDER on 11/11/192341 Lisinopril 20 Mg Tablet, 20 MG PO DAILY, (Reported) Metronidazole 500 Mg Tablet, 500 MG PO BID Prescribed by: MAYCOL GAGNON on 08/10/192346 Omeprazole 40 Mg Capsule.dr, 40 MG PO DAILY, (Reported) Ondansetron 4 Mg Tab.rapdis, 4 MG PO TID Prescribed by: MAYCOL GAGNON on 08/10/192346 Oxycodone HCl/Acetaminophen 1 Each Tablet, 1 TAB PO Q6H Prescribed by: JENIFER GONZALES on 12/06/19 0158 Patient Home Medication List Home Medication List Reviewed: Yes Review of Systems Review of Systems Constitutional: No chills; dizziness; No fever, No malaise EENTM: Ear Pain (feeling like getting pressure and drainage building up in ears last 2-3 days) Respiratory: No Symptoms Reported Cardiovascular: No Symptoms Reported Gastrointestinal: See HPI Genitourinary: No Symptoms Reported Musculoskeletal: no symptoms reported Skin: no symptoms reported Psychiatric/Neurological: No Symptoms Reported Past Ptqlhtl-Mvvolw-Ppbtsk Hx Past Med/Social Hx: Reviewed Nursing Past Med/Soc Hx Patient Social History Alcohol Use: Denies Use Recreational Drug Use: No Smoking Status: Current Everyday Smoker Type Used: Cigarettes 2nd Hand Smoke Exposure: No Recent Foreign Travel: No Contact w/Someone Who Travel: No Recent Infectious Disease Expo: No Recent Hopitalizations: No Physical Abuse: No Sexual Abuse: No Immunizations Up To Date Tetanus Booster (TDap): Unknown Seasonal Allergies Seasonal Allergies: Yes Past Medical History Surgeries: Yes (dental extractions, dxls, bmt, 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, LEFT EAR) Gallbladder, Hysterectomy, 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 Respiratory: Yes Asthma, COPD Currently Using CPAP: No Currently Using BIPAP: No Cardiac: Yes Heart Murmur, Hypertension Neurological: Yes Headaches /Migraines, Seizure Disorder 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 Disorders: Yes Female 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 Disorders: 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, 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 Sexually Transmitted Disease: No Genitourinary: Yes Kidney Stones Gastrointestinal: Yes Colitis, Gastroesophageal Reflux, Diverticulosis, Polyps, Ulcer Musculoskeletal: Yes (spina bifida) Arthritis, Scoliosis, Chronic Back Pain Endocrine: No HEENT: Yes Chronic Ear Infection Hearing Impairment: Denies, Hard of Hearing Cancer: No Psychosocial: Yes Anxiety, Depression Integumentary: No Blood Disorders: No Family Medical History No Pertinent Family Hx, GI Disease Physical Exam Vital Signs Vital Signs - First Documented 04/06/20 21:25 Temp 36.8 Pulse 107 Resp 18 B/P (MAP) 167/104 (125) Pulse Ox 98 O2 Delivery Room Air Capillary Refill : Less Than 3 Seconds Height/Weight/BMI Height: 5'0" Weight: 235lbs. 0oz. 106.688257ee; 47.00 BMI Method:Stated General Appearance: WD/WN, mild distress, obese HEENT: other (bilateral blue tympanostomy tubes present in TMs without definite drainage. 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, alert Skin: normal color, warm/dry Progress/Results/Core Measures Results/Orders Lab Results Laboratory Tests Test 04/06/20 21:30 04/06/20 22:55 Range/Units Urine Color DARK YELLOW Urine Clarity SL CLOUDY Urine pH 6.0 5-9 Urine Specific [place] 1.025 H 1.016-1.022 Urine Protein NEGATIVE NEGATIVE Urine Glucose (UA) NEGATIVE NEGATIVE Urine Ketones NEGATIVE NEGATIVE Urine Nitrite NEGATIVE NEGATIVE Urine Bilirubin NEGATIVE NEGATIVE Urine Urobilinogen 0.2 < = 1.0 MG/DL Urine Leukocyte Esterase NEGATIVE NEGATIVE Urine RBC (Auto) NEGATIVE NEGATIVE Urine RBC NONE /HPF Urine WBC 0-2 /HPF Urine Squamous Epithelial Cells 25-50 H /HPF Urine Crystals NONE /LPF Urine Bacteria FEW H /HPF Urine Casts NONE /LPF Urine Mucus MODERATE H /LPF Urine Culture Indicated NO White Blood Count 15.8 H 4.3-11.0 10^3/uL Red Blood Count 3.99 L 4.35-5.85 10^6/uL Hemoglobin 11.8 11.5-16.0 G/DL Hematocrit 35 35-52 % Mean Corpuscular Volume 88 80-99 FL Mean Corpuscular Hemoglobin 30 25-34 PG Mean Corpuscular Hemoglobin Concent 34 32-36 G/DL Red Cell Distribution Width 13.9 10.0-14.5 % Platelet Count 434 H 130-400 10^3/uL Mean Platelet Volume 9.7 7.4-10.4 FL Immature Granulocyte % (Auto) 0 % Neutrophils (%) (Auto) 68 42-75 % Lymphocytes (%) (Auto) 26 12-44 % Monocytes (%) (Auto) 4 0-12 % Eosinophils (%) (Auto) 2 0-10 % Basophils (%) (Auto) 0 0-10 % Neutrophils # (Auto) 10.7 H 1.8-7.8 X 10^3 Lymphocytes # (Auto) 4.2 H 1.0-4.0 X 10^3 Monocytes # (Auto) 0.6 0.0-1.0 X 10^3 Eosinophils # (Auto) 0.3 0.0-0.3 10^3/uL Basophils # (Auto) 0.1 0.0-0.1 10^3/uL Immature Granulocyte # (Auto) 0.1 0.0-0.1 10^3/uL Neutrophils % (Manual) 66 % Lymphocytes % (Manual) 19 % Monocytes % (Manual) 4 % Eosinophils % (Manual) 2 % Basophils % (Manual) 1 % Band Neutrophils 4 % Atypical Lymphocytes 4 % Blood Morphology Comment NORMAL Sodium Level 139 135-145 MMOL/L Potassium Level 3.3 L 3.6-5.0 MMOL/L Chloride Level 103 98-107 MMOL/L Carbon Dioxide Level 24 21-32 MMOL/L Anion Gap 12 5-14 MMOL/L Blood Urea Nitrogen 7 7-18 MG/DL Creatinine 0.70 0.60-1.30 MG/DL Estimat Glomerular Filtration Rate > 60 BUN/Creatinine Ratio 10 Glucose Level 99 70-105 MG/DL Calcium Level 9.1 8.5-10.1 MG/DL Corrected Calcium 9.2 8.5-10.1 MG/DL Total Bilirubin 0.2 0.1-1.0 MG/DL Aspartate Amino Transf (AST/SGOT) 33 5-34 U/L Alanine Aminotransferase (ALT/SGPT) 24 0-55 U/L Alkaline Phosphatase 135 40-136 U/L Total Protein 7.3 6.4-8.2 GM/DL Albumin 3.9 3.2-4.5 GM/DL Lipase 29 8-78 U/L My Orders Orders - LEIGH ANGEL MD Ua Culture If Indicated (04/06/20 21:29) Dicyclomine Injection (Bentyl Injection) (04/06/20 21:45) Fentanyl Injection (Sublimaze Injection (04/06/20 21:45) Ct Abdomen/Pelvis Wo (04/06/20 21:45) Comprehensive Metabolic Panel (04/06/20 23:06) Lipase (04/06/20 23:06) Ed Iv/Invasive Line Start (04/06/20:) Cbc With Automated Diff (04/06/20 23:06) Ns Iv 1000 Ml (Sodium Chloride 0.9%) (04/06/20 23:15) Lorazepam Injection (Ativan Injection) (04/06/20 23:06) Fentanyl Injection (Sublimaze Injection (04/06/20 23:06) Ondansetron Injection (Zofran Injectio (04/06/20 23:06) Pantoprazole Injection (Protonix Injecti (04/06/20 23:06) Manual Differential (04/06/20 22:55) Rx-Ondansetron Po (Rx-Zofran Po) (04/06/20 23:45) Rx-Dicyclomine Capsule (Rx-Bentyl Capsul (04/06/20 23:45) Vital Signs/I&O 04/06/20 21:25 Temp 36.8 Pulse 107 Resp 18 B/P (MAP) 167/104 (125) Pulse Ox 98 O2 Delivery Room Air Blood Pressure Mean: 125 Progress Progress Note #1: Progress Note check urine and CT scan of abdomen/pelvis. Give Fentanyl 100 mcg IM and Bentyl 20 mg IM for pain. Progress Note #2: Time: 22:44 Progress Note UA clear of signs of infection. CT scan shows No acute abnormality to account for her symptoms. On recheck of the patient she continues to complain of pain and states the shots were not helping. I advised her that there were no indications for surgery and she had no obstruction. Will try some IVF and some additional pain medicine and then see if she can go home to rest. Since she was having continued pain will check labs as well. Progress Note #3: Time: 23:31 Progress Note labs show chronic elevation of WBC count stable for her. Chemistry stable without acute significant abnormality. On recheck of pt she was feeling better and resting in room comfortably now. Will discharge on Bentyl and Zofran. As I was reviewing discharge instructions and medicine pt mentioned being dizzy and feeling like she was having fluid and pressure in her ears in last 2-3 days like she was having ear infection developing. She reports she usually gets augmentin and using ear drops. She has ear drops at home but needs the augmentin script. I looked at her ears and she had Tympanostomy tubes present bilaterally. Will send script for Augmentin to [facility]. When mentioned Zofran and Bentyl for take home tonight she stated she did not need the Zofran as she had a full box at home. Diagnostic Imaging Diagonstic Imaging: CT Plain Films/CT/US/NM/MRI: abdomen, pelvis Comments 1. No acute abnormality. 2. Hepatic Steatosis. 3. Status post cholecystectomy. 4. Status post hysterectomy. Read by Dr. Taj Ibrahim at 2222 and faxed at [phone]. Departure Impression Primary Impression: Periumbilical abdominal pain Additional Impression: Bilateral otitis media with effusion Disposition: 01 HOME, SELF-CARE Condition: Improved Departure-Patient Inst. Decision time for Depature: 23:34 [facility] ([facility]) Primary Care Physician MAYKEL CUMMINS APRN (Family) Primary Care Physician Patient Instructions: [place] Diet, Severe Abdominal Pain, Adult (DC) Add. Discharge Instructions: Stay well hydrated and follow a bland diet. Check with clinic and follow up for continued concerns as you may need to have an updated endoscopy/colonoscopy exam if you have continued pain/problems. All discharge instructions reviewed with patient and/or family. Voiced understanding. Scripts Amoxicillin/Potassium Clav (Amox Tr-K Clv 875-125 mg Tab) 1 Each Tablet 1 EACH PO BID for otitis media for 10 Days, #20 TAB 0 Refills Prov: LEIGH ANGEL MD 04/06/20 Dicyclomine HCl (Dicyclomine HCl) 20 Mg Tablet 20 MG PO Q6H PRN for abdominal pain for 5 Days, #20 TAB 0 Refills Prov: ENYART,LEIGH E MD 04/06/20 LEIGH ANGEL MD Apr 06, 2020 21:53
[2020-04-06] MEDS ORDERED: fentaNYL INJECTION 100 MCG/2 ML AMP IVP STA (23:06)
[2020-04-06] MEDS ORDERED: PANTOPRAZOLE 40 MG (PROTONIX) VIAL IV STA (23:06)
[2020-04-06] MEDS ORDERED: LORazepam INJ 2 MG/ML (ATIVAN) VIAL IVP STA (23:06)
[2020-04-06] MEDS ORDERED: ONDANSETRON 4 MG/2 ML (SDV) Z0FRAN IVP STA (23:06)
[2020-04-06 23:15] LABS: BASOPHILS # (AUTO) 0.1 10^3/uL (0.0-0.1); BASOPHILS % (AUTO) 0 % (0-10); EOSINOPHILS # (AUTO) 0.3 10^3/uL (0.0-0.3); EOSINOPHILS % (AUTO) 2 % (0-10); HEMATOCRIT 35 % (35-52); HEMOGLOBIN 11.8 G/DL (11.5-16.0); LYMPHOCYTES # (AUTO) 4.2 X 10^3 (1.0-4.0); LYMPHOCYTES % (AUTO) 26 % (12-44); MEAN CORPUSCULAR HEMOGLOBIN 30 PG (25-34); MEAN CORPUSCULAR HGB CONC 34 G/DL (32-36); MEAN CORPUSCULAR VOLUME 88 FL (80-99); MEAN PLATELET VOLUME 9.7 FL (7.4-10.4); MONOCYTES # (AUTO) 0.6 X 10^3 (0.0-1.0); MONOCYTES % (AUTO) 4 % (0-12); NEUTROPHILS # (AUTO) 10.7 X 10^3 (1.8-7.8); NEUTROPHILS % (AUTO) 68 % (42-75); PLATELET COUNT 434 10^3/uL (130-400); WHITE BLOOD COUNT 15.8 10^3/uL (4.3-11.0)
[2020-04-06] MEDS ORDERED: NS IV 1000 ML 1,000 ML IV SCH (23:15)
[2020-04-06 23:26] LABS: BAND NEUTROPHILS 4 %; BASOPHILS % (MANUAL) 1 %; EOSINOPHILS % (MANUAL) 2 %; LYMPHOCYTES % (MANUAL) 19 %; MONOCYTES % (MANUAL) 4 %; NEUTROPHILS % (MANUAL) 66 %
[2020-04-06 23:27] LABS: ATYPICAL LYMPHOCYTES 4 %; RBC MORPH NORMAL
[2020-04-06 23:28] LABS: ALANINE AMINOTRANSFERASE 24 U/L (0-55); ALBUMIN 3.9 GM/DL (3.2-4.5); ALKALINE PHOSPHATASE 135 U/L (40-136); BILIRUBIN,TOTAL 0.2 MG/DL (0.1-1.0); BUN/CREATININE RATIO 10; CALCIUM 9.1 MG/DL (8.5-10.1); CARBON DIOXIDE 24 MMOL/L (21-32); CHLORIDE 103 MMOL/L (98-107); GFR ESTIMATED > 60; GLUCOSE 99 MG/DL (70-105); LIPASE 29 U/L (8-78); POTASSIUM 3.3 MMOL/L (3.6-5.0); SODIUM 139 MMOL/L (135-145); TOTAL PROTEIN 7.3 GM/DL (6.4-8.2)
[2020-04-06] MEDS ORDERED: DICY20TA10 PO (23:35)
[2020-04-06] MEDS ORDERED: RX-DICYCLOMINE 10 MG (BENTYL) CAP PPK#4 PO PRN (23:45)
[2020-04-06] MEDS ORDERED: RX-ONDANSETRON 4 MG ODT (ZOFRAN) PPK #4 PO PRN (23:45)
[2020-04-06 23:57] VITALS: BP 144/79
[2020-04-06] MEDS ORDERED: AMOX1TAB12 PO (23:59)
[2020-04-07] MEDS ORDERED: RX-DICYCLOMINE 10 MG (BENTYL) CAP PPK#4 PO STA
--- NOTE | 2020-04-07 06:56 | Diagnostic Imaging Report ---
PROCEDURE: CT abdomen and pelvis without contrast. TECHNIQUE: Multiple contiguous axial images were obtained through the abdomen and pelvis without the use of intravenous contrast. Auto Exposure Controls were utilized during the CT exam to meet ALARA standards for radiation dose reduction. INDICATION: Left flank pain Lung bases are clear. There is fatty infiltration of liver. The gallbladder surgically absent. Spleen is not enlarged. Pancreas appears normal. Adrenals are normal. There is a 2 mm calculus in lower pole calyx of the right kidney. No hydronephrosis. Ureters are clear. Urinary bladder is decompressed. Uterus is surgically absent. Pancreas is normal. Small bowel is not dilated. Colon appears normal. There is no intraperitoneal free air or free fluid. IMPRESSION: Hepatic steatosis. Postsurgical changes as reported. No acute abnormality seen. Right nephrolithiasis. I agree with preliminary interpretation. Dictated by: Dictated on workstation # [id number]
== END 2020-04-06 23:57 | disposition home or self-care (01) ==
LOC: EDUNIT# 21:25 → ER FS 21:26
DX: R10.33 Periumbilical pain (principal); H65.93 Unspecified nonsuppurative otitis media, bilateral; E66.9 Obesity, unspecified; J44.9 Chronic obstructive pulmonary disease, unspecified; G89.29 Other chronic pain; M54.9 Dorsalgia, unspecified; K21.9 Gastro-esophageal reflux disease without esophagitis; F32.9 Major depressive disorder, single episode, unspecified; G40.909 Epilepsy, unspecified, not intractable, without status epilepticus; I10 Essential (primary) hypertension; F17.210 Nicotine dependence, cigarettes, uncomplicated; Z68.42 Body mass index [BMI] 45.0-49.9, adult; Z88.8 Allergy status to other drugs, medicaments and biological substances; Z79.891 Long term (current) use of opiate analgesic
CPT/HCPCS: 36415; 74176; 80053; 81000; 83690; 85007; 85027

== ENCOUNTER → 2020-05-12 | Outpatient (CLI) | payer MEDICAID ==
[~2020-05-12] MED LIST changes: +AMOX1TAB12 PO
--- NOTE | 2020-05-12 11:34 | Diagnostic Imaging Report ---
INDICATION: Bilateral wrist pain. COMPARISON: None. FINDINGS: Multiple radiographic views of the bilateral wrists were obtained and show no fractures, dislocations, or other acute bony abnormalities. Joint spaces are well maintained throughout. The soft tissues appear unremarkable. No radiopaque foreign bodies are identified. IMPRESSION: Unremarkable radiographic exam of the bilateral wrists. Dictated by: Dictated on workstation # [id number]
== END ==
LOC: RAD FS 09:38
PROVIDERS: ATTEND Nurse Practitioner
DX: M25.531 Pain in right wrist (principal)

== ENCOUNTER 2021-02-19 00:37 | Emergency (ER) | payer MEDICAID ==
[~2021-02-19 00:37] MED LIST changes: -CIPR500T4 PO; +CIPR500T5 PO; -LISI-552 PO; -LISI10TA2 PO; +LISI10TA25 PO; +LISI20TA26 PO; -OMEP40CA27 PO; +OMEP40CA6 PO
[2021-02-19] MEDS ORDERED: fentaNYL INJ 100 MCG/2 ML AMP IM STA (00:54)
[2021-02-19] MEDS ORDERED: RX-OXYCODONE/APAP 5-325 MG #4 TAB PK PO PRN (01:00)
[2021-02-19] MEDS ORDERED: OXYC1TAB11 PO (01:00)
--- NOTE | 2021-02-19 01:01 | ED EENT ---
History of Present Illness General Chief Complaint: Ear Problems Stated Complaint: LEFT EAR PAIN Source: patient, old records History of Present Illness Date Seen by Provider: Feb 19, 2021 Time Seen by Provider: 00:42 Initial Comments 40 yo female presenting with increasing ear pain on left side for last several days. She started Cefdinir antibiotic and was taking Ofloxacin ear drops. She had ear surgery about a month ago. She has chronic issues with her ears. She does have tympanostomy tubes bilaterally. Tonight at home she had used a Q tip and saw blood on it. Between that and the increased pain she came to the ED to be seen and get help with her pain. She took Ibuprofen at 1900 tonight. Timing/Duration: gradual Location: ear (L) Prearrival Treatment: over the counter meds, prescription meds Associated Symptoms: change in hearing; No cough, No drooling; ear drainage (blood earlier tonight), facial pain/swelling (around left ear); No fever, No malaise, No nasal congestion/drainage, No poor fluid intake, No poor solids intake, No sinus infection, No sore throat, No tooth pain, No voice change Allergies and Home Medications Allergies Coded Allergies: gabapentin (Verified Allergy, Unknown, 01/25/19) metoclopramide (Unverified Allergy, Unknown, "CAUSES PT TO LOSE CONTROL OF MUSCLES", 01/25/19) Patient Home Medication List Home Medication List Reviewed: Yes Albuterol Sulfate (Proair Hfa) 1 Puff Puff, 2 PUFF IH Q4H PRN for WHEEZING, (Reported) Entered as Reported by: MADDY DANIELLE on 02/20/19 1051 Amoxicillin/Potassium Clav (Amox Tr-K Clv 875-125 mg Tab) 1 Each Tablet, 1 EACH PO BID Prescribed by: LEIGH ANGEL on 04/06/20 2359 Baclofen (Baclofen) 10 Mg Tablet, 10 MG PO Q8H PRN for back pain/spasm Prescribed by: LEIGH ANGEL on 06/27/19 2246 Ciprofloxacin HCl (Ciprofloxacin HCl) 500 Mg Tablet, 500 MG PO BID Prescribed by: MAYCOL GAGNON on 08/10/19 2347 Ciprofloxacin HCl (Ciprofloxacin HCl) 500 Mg Tablet, 500 MG PO BID Prescribed by: JENIFER GONZALES on 12/06/19 0158 Dicyclomine HCl (Dicyclomine HCl) 20 Mg Tablet, 20 MG PO Q6H PRN for abdominal pain Prescribed by: LEIGH ANGEL on 04/06/20 2335 Estradiol (Estradiol Tablet) 1 Mg Tablet, 1 MG PO DAILY, (Reported) Entered as Reported by: MADDY DANIELLE on 05/20/19 1327 Ethosuximide (Ethosuximide) 250 Mg Capsule, 250 MG PO HS, (Reported) Entered as Reported by: MADDY DANIELLE on 04/12/16 0942 Fluoxetine HCl (Fluoxetine HCl) 40 Mg Capsule, 40 MG PO DAILY, (Reported) Entered as Reported by: LILIBETH DOUGLAS on 01/26/19 0349 Fluticasone/Salmeterol (Advair 250-50 Diskus) 1 Each Blst.w.dev, 1 EACH IH BID, (Reported) Entered as Reported by: MADDY DANIELLE on 02/20/19 1051 Gentamicin Sulfate (Gentamicin Sulfate) 5 Ml Drops, 3 DROPS EACH EAR BID Prescribed by: ALLAN DURON on 05/23/19 0928 Hydrocodone/Acetaminophen (Hydrocodone-Acetamin 5-325 mg) 1 Each Tablet, 1 EACH PO Q4H Prescribed by: MAYCOL GAGNON on 08/10/19 234 Hyoscyamine Sulfate (Hyoscyamine Sulfate) 0.125 Mg Tab.rapdis, 0.125 MG PO Q4H PRN for DIARRHEA Prescribed by: SAMREEN SNYDER on 11/11/19 2342 Lisinopril (Lisinopril) 20 Mg Tablet, 20 MG PO DAILY, (Reported) Entered as Reported by: MADDY DANIELLE on 05/20/19 1324 Metronidazole (Flagyl) 500 Mg Tablet, 500 MG PO BID Prescribed by: MAYCOL PRUITTSTDEBRA on 08/10/19 234 Omeprazole (Omeprazole) 40 Mg Capsule.dr, 40 MG PO DAILY, (Reported) Entered as Reported by: LILIBETH DOUGLAS on 01/26/19 034 Ondansetron (Ondansetron Odt) 4 Mg Tab.rapdis, 4 MG PO TID Prescribed by: MAYCOL GAGNON on 08/10/19 234 Oxycodone HCl/Acetaminophen (Percocet 5-325 mg Tablet) 1 Each Tablet, 1 TAB PO Q6H Prescribed by: JENIFER GONZALES on 12/06/19 0158 Oxycodone HCl/Acetaminophen (Oxycodone-Acetaminophen 5-325) 1 Each Tablet, 1 EACH PO Q4H PRN for PAIN-SEVERE (8-10) Prescribed by: LEIGH ANGEL on 02/19/21 0101 Review of Systems Review of Systems Constitutional: No chills, No fever Eyes: No Symptoms Reported Ears: See HPI; Denies Dizziness; Bloody Discharge, Purulent Discharge, Previous Injury Nose: no symptoms reported Mouth: no symptoms reported Throat: no symptoms reported Respiratory: no symptoms reported Cardiovascular: no symptoms reported Gastrointestinal: no symptoms reported Musculoskeletal: no symptoms reported Skin: No change in color Neurological: Headache (left sided around her ear) Past Vnzpepq-Aeornn-Pvximz Hx Patient Social History Tobacco Use?: No Substance use?: No Alcohol Use?: No Pt feels they are or have been: No Immunizations Up To Date Tetanus Booster (TDap): Unknown Seasonal Allergies Seasonal Allergies: Yes Past Medical History Surgeries: Yes (dental extractions, dxls, bmt, 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, LEFT EAR) Ear Surgery (tympanostomy tubes), Gallbladder, Hysterectomy, 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 Respiratory: Yes Asthma, COPD Currently Using CPAP: No Currently Using BIPAP: No Cardiac: Yes Heart Murmur, Hypertension Neurological: Yes Headaches /Migraines, Seizure Disorder 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 Disorders: Yes Female 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 Disorders: 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, 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 Sexually Transmitted Disease: No Genitourinary: Yes Kidney Stones Gastrointestinal: Yes Colitis, Gastroesophageal Reflux, Diverticulosis, Polyps, Ulcer Musculoskeletal: Yes (spina bifida) Arthritis, Scoliosis, Chronic Back Pain Endocrine: No HEENT: Yes Chronic Ear Infection Hearing Impairment: Denies, Hard of Hearing Cancer: No Psychosocial: Yes Anxiety, Depression Integumentary: No Blood Disorders: No Family Medical History No Pertinent Family Hx, GI Disease Physical Exam Vital Signs Vital Signs - First Documented 02/19/21 00:42 Temp 36.7 Pulse 97 Resp 18 B/P (MAP) 170/98 (122) Pulse Ox 98 O2 Delivery Room Air Height, Weight, BMI Height: 5'0" Weight: 235lbs. 0oz. 106.781702dd; 47.00 BMI Method:Stated General Appearance: WD/WN, mild distress Eyes: bilateral eye PERRL, bilateral eye EOMI Ears: right ear auricle normal, right ear canal normal, right ear other (Tympanostomy tube present on the right without any drainage from it. 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, no motor/sensory deficits, alert, oriented x 3 Skin: normal color, warm/dry Progress/Results/Core Measures Results/Orders My Orders Orders - LEIGH ANGEL MD Fentanyl Inj (Sublimaze Injection) (02/19/21 00:54) Rx-Oxycodone/Apap 5-325 Mg (Rx-Percocet (02/19/21 01:00) Medications Given in ED Current Medications Medications Dose Ordered Sig/Brissa Route Start Time Stop Time Status Last Admin Dose Admin Oxycodone/ Acetaminophen 1 ea Q4H PRN PO 02/19/21 01:00 02/19/21 01:05 DC 02/19/21 00:59 1 EA Vital Signs/I&O 02/19/21 02/19/21 00:42 01:03 Temp 36.7 36.7 Pulse 97 97 Resp 18 18 B/P (MAP) 170/98 (122) 170/98 Pulse Ox 98 98 O2 Delivery Room Air Room Air Progress Progress Note : Progress Note Advised patient that the antibiotics just started on will take 48 to 72 hours to start helping. Can try using hot pack to the ear as well as can give some pain medicine to help for the first day or 2 of the antibiotics kick in. Counseled to check back with primary or ENT for continued concerns Departure Impression Primary Impression: Otitis externa Qualified Codes: H60.312 - Diffuse otitis externa, left ear Additional Impressions: Otalgia of left ear Recurrent otitis media of left ear Qualified Codes: H65.05 - Acute serous otitis media, recurrent, left ear Disposition: HOME, SELF-CARE Condition: Stable Departure-Patient Inst. Decision time for Depature: 00:59 Referrals: [facility]/JENNIFER (PCP) Primary Care Physician MAYKEL CUMMINS APRN (Family) Primary Care Physician Patient Instructions: Outer Ear Infection ED, Ear Infection ED Add. Discharge Instructions: Take antibiotics as prescribed and continue ear antibiotic drops. Use warm pack to help with ear pain. Use pain medicine for severe pain and Ibuprofen for inflammation/swelling. Check back with ENT if having continued problems All discharge instructions reviewed with patient and/or family. Voiced understanding. Scripts Oxycodone HCl/Acetaminophen (Oxycodone-Acetaminophen 5-325) 1 Each Tablet 1 EACH PO Q4H PRN for PAIN-SEVERE (8-10) MDD 6 for 3 Days, #18 TAB 0 Refills Prov: LEIGH ANGEL MD 02/19/21 LEIGH ANGEL MD Feb 19, 2021 01:01
[2021-02-19 01:03] VITALS: BP 170/98
== END 2021-02-19 01:05 | disposition home or self-care (01) ==
LOC: EDUNIT# 00:37 → ER FS 00:40
DX: H60.92 Unspecified otitis externa, left ear (principal); H66.92 Otitis media, unspecified, left ear; I10 Essential (primary) hypertension; J44.9 Chronic obstructive pulmonary disease, unspecified; G40.909 Epilepsy, unspecified, not intractable, without status epilepticus; G43.909 Migraine, unspecified, not intractable, without status migrainosus; K21.9 Gastro-esophageal reflux disease without esophagitis; G89.29 Other chronic pain; M54.9 Dorsalgia, unspecified; F41.9 Anxiety disorder, unspecified; F32.A Depression, unspecified; Z79.51 Long term (current) use of inhaled steroids; Z79.891 Long term (current) use of opiate analgesic; Z79.899 Other long term (current) drug therapy
CPT/HCPCS: 99284

== ENCOUNTER 2021-03-28 22:30 | Emergency (ER) | payer MEDICAID ==
[~2021-03-28 22:30] MED LIST changes: +OXYC1TAB11 PO
[2021-03-28] MEDS ORDERED: KETOROLAC 30 MG/ML VIAL IM STA (22:42)
[2021-03-28] MEDS ORDERED: diphenhydrAMINE 50 MG/ML INJ (BENADRYL) IM STA (22:42)
--- NOTE | 2021-03-28 22:42 | ED Headache ---
General Chief Complaint: Head/Cervical Problems Stated Complaint: MIGRAINE;NAUSEA History of Present Illness Date Seen by Provider: Mar 28, 2021 Time Seen by Provider: 22:40 Initial Comments 40-year-old female presents with a migraine. Patient has a history of a migraines. Patient reports that this morning she had a migraine take Imitrex and got better. The this evening worse again. That she took medication around 8 PM but is continue to worsen since then. Reports over the left side of her forehead and eye. She complains of some photophobia along with some mild nausea but no vomiting. No reports of fevers, chills, cough or other systemic complaints Allergies and Home Medications Allergies Coded Allergies: gabapentin (Verified Allergy, Unknown, 01/25/19) metoclopramide (Unverified Allergy, Unknown, "CAUSES PT TO LOSE CONTROL OF MUSCLES", 01/25/19) Patient Home Medication List Home Medication List Reviewed: Yes Albuterol Sulfate (Proair Hfa) 1 Puff Puff, 2 PUFF IH Q4H PRN for WHEEZING, (Reported) Entered as Reported by: MADDY DANIELLE on 02/20/19 1051 Amoxicillin/Potassium Clav (Amox Tr-K Clv 875-125 mg Tab) 1 Each Tablet, 1 EACH PO BID Prescribed by: LEIGH ANGEL on 04/06/20 2359 Baclofen (Baclofen) 10 Mg Tablet, 10 MG PO Q8H PRN for back pain/spasm Prescribed by: LEIGH ANGEL on 06/27/19 2246 Ciprofloxacin HCl (Ciprofloxacin HCl) 500 Mg Tablet, 500 MG PO BID Prescribed by: MAYCOL GAGNON on 08/10/19 2347 Ciprofloxacin HCl (Ciprofloxacin HCl) 500 Mg Tablet, 500 MG PO BID Prescribed by: EJNIFER GONZALES on 12/06/19 0158 Dicyclomine HCl (Dicyclomine HCl) 20 Mg Tablet, 20 MG PO Q6H PRN for abdominal pain Prescribed by: LEIGH ANGEL on 04/06/20 2335 Estradiol (Estradiol Tablet) 1 Mg Tablet, 1 MG PO DAILY, (Reported) Entered as Reported by: MADDY DANIELLE on 05/20/19 1327 Ethosuximide (Ethosuximide) 250 Mg Capsule, 250 MG PO HS, (Reported) Entered as Reported by: MADDY DANIELLE on 04/12/16 0942 Fluoxetine HCl (Fluoxetine HCl) 40 Mg Capsule, 40 MG PO DAILY, (Reported) Entered as Reported by: LILIBETH DOUGLAS on 01/26/19 0349 Fluticasone/Salmeterol (Advair 250-50 Diskus) 1 Each Blst.w.dev, 1 EACH IH BID, (Reported) Entered as Reported by: MADDY DANIELLE on 02/20/19 1051 Gentamicin Sulfate (Gentamicin Sulfate) 5 Ml Drops, 3 DROPS EACH EAR BID Prescribed by: ALLAN DURON on 05/23/19 0928 Hydrocodone/Acetaminophen (Hydrocodone-Acetamin 5-325 mg) 1 Each Tablet, 1 EACH PO Q4H Prescribed by: MAYCOL GAGNON on 08/10/19 234 Hyoscyamine Sulfate (Hyoscyamine Sulfate) 0.125 Mg Tab.rapdis, 0.125 MG PO Q4H PRN for DIARRHEA Prescribed by: SAMREEN SNYDER on 11/11/19 234 Lisinopril (Lisinopril) 20 Mg Tablet, 20 MG PO DAILY, (Reported) Entered as Reported by: MADDY DANIELLE on 05/20/19 1324 Metronidazole (Flagyl) 500 Mg Tablet, 500 MG PO BID Prescribed by: MAYCOL GAGNON on 08/10/19 234 Omeprazole (Omeprazole) 40 Mg Capsule.dr, 40 MG PO DAILY, (Reported) Entered as Reported by: LILIBETH DOUGLAS on 01/26/19 0349 Ondansetron (Ondansetron Odt) 4 Mg Tab.rapdis, 4 MG PO TID Prescribed by: MAYCOL GAGNON on 08/10/19 234 Oxycodone HCl/Acetaminophen (Percocet 5-325 mg Tablet) 1 Each Tablet, 1 TAB PO Q6H Prescribed by: JENIFER GONZALES on 12/06/19 0158 Oxycodone HCl/Acetaminophen (Oxycodone-Acetaminophen 5-325) 1 Each Tablet, 1 EACH PO Q4H PRN for PAIN-SEVERE (8-10) Prescribed by: LEIGH ANGEL on 02/19/21 0101 Review of Systems Review of Systems Constitutional: No chills, No fever Eyes: See HPI Ears, Nose, Mouth, Throat: no symptoms reported Respiratory: no symptoms reported Cardiovascular: no symptoms reported Gastrointestinal: see HPI; No abdominal pain; nausea; No vomiting Genitourinary: no symptoms reported Musculoskeletal: no symptoms reported Skin: no symptoms reported Psychiatric/Neurological: See HPI, Headache Past Mkijfhm-Uqmdbd-Kanavq Hx Immunizations Up To Date Tetanus Booster (TDap): Unknown Seasonal Allergies Seasonal Allergies: Yes Past Medical History Surgeries: Yes (dental extractions, dxls, bmt, 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, LEFT EAR) Ear Surgery, Gallbladder, Hysterectomy, 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 Respiratory: Yes Asthma, COPD Currently Using CPAP: No Currently Using BIPAP: No Cardiac: Yes Heart Murmur, Hypertension Neurological: Yes Headaches /Migraines, Seizure Disorder 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 Disorders: Yes Female 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: 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, 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 Sexually Transmitted Disease: No Genitourinary: Yes Kidney Stones Gastrointestinal: Yes Colitis, Gastroesophageal Reflux, Diverticulosis, Polyps, Ulcer Musculoskeletal: Yes (spina bifida) Arthritis, Scoliosis, Chronic Back Pain Endocrine: No HEENT: Yes Chronic Ear Infection Hearing Impairment: Denies, Hard of Hearing Cancer: No Psychosocial: Yes Anxiety, Depression Integumentary: No Blood Disorders: No Family Medical History No Pertinent Family Hx, GI Disease Physical Exam Vital Signs Vital Signs - First Documented 03/28/21 22:35 Temp 36.3 Pulse 99 Resp 18 B/P (MAP) 186/100 (128) Pulse Ox 98 O2 Delivery Room Air Capillary Refill : Height, Weight, BMI Height: 5'0" Weight: 235lbs. 0oz. 106.839028zf; 47.00 BMI Method:Stated General Appearance: mild distress HEENT: PERRL/EOMI Neck: full range of motion, supple Cardiovascular: normal peripheral pulses, regular rate, rhythm Respiratory: lungs clear, normal breath sounds Extremities: normal range of motion Psychiatric: alert, oriented x 3 Crainal Nerves: normal hearing, normal speech Motor/Sensory: no motor deficit Skin: normal color, warm/dry Progress/Results/Core Measures Results/Orders My Orders Orders - DIONI MALONEY DO Prochlorperazine Injection (Compazine In (03/28/21 22:45) Ketorolac Injection (Toradol Injection) (03/28/21 22:42) Diphenhydramine Injection (Benadryl Inje (03/28/21 22:42) Vital Signs/I&O 03/28/21 22:35 Temp 36.3 Pulse 99 Resp 18 B/P (MAP) 186/100 (128) Pulse Ox 98 O2 Delivery Room Air Departure Impression Primary Impression: Migraine Qualified Codes: G43.909 - Migraine, unspecified, not intractable, without status migrainosus Disposition: HOME, SELF-CARE Condition: Stable Departure-Patient Inst. Referrals: [facility] (PCP) Primary Care Physician MAYKEL CUMMINS APRN (Family) Primary Care Physician Patient Instructions: Migraines (DC) Add. Discharge Instructions: Drink plenty of fluids, get plenty of rest Follow-up with your primary care provider if your migraine become more frequent All discharge instructions reviewed with patient and/or family. Voiced understanding. DIONI MALONEY DO Mar 28, 2021 22:42
[2021-03-28] MEDS ORDERED: PROCHLORPERAZINE 10 MG/2ML INJ (COMPAZINE) IM ONE (22:45)
[2021-03-28 23:06] VITALS: BP 152/71
== END 2021-03-28 23:07 | disposition home or self-care (01) ==
LOC: EDUNIT# 22:30 → ER FS 22:32
DX: G43.909 Migraine, unspecified, not intractable, without status migrainosus (principal); J44.9 Chronic obstructive pulmonary disease, unspecified; I10 Essential (primary) hypertension; K21.9 Gastro-esophageal reflux disease without esophagitis; F41.9 Anxiety disorder, unspecified; F32.9 Major depressive disorder, single episode, unspecified; G89.29 Other chronic pain; M54.9 Dorsalgia, unspecified; Z79.899 Other long term (current) drug therapy; Z79.891 Long term (current) use of opiate analgesic
CPT/HCPCS: 99284

== ENCOUNTER → 2021-05-20 | Outpatient (CLI) | payer MEDICAID ==
[~2021-05-20] MED LIST changes: +CYCL10TA25 PO; -CYCL10TA9 PO; +DICY20TA PO; -DICY20TA10 PO
--- NOTE | 2021-05-20 17:49 | Diagnostic Imaging Report ---
INDICATION: Low back pain AP and lateral views of lumbar spine are obtained. Lumbar spinal curvature and alignment are unremarkable. Vertebral body heights and disc spaces are maintained. No fracture or subluxation is detected. IMPRESSION: No radiographic evidence of acute lumbar spinal abnormality. Dictated by: Dictated on workstation # [id number]
== END ==
LOC: RAD FS 17:21
PROVIDERS: ATTEND Nurse Practitioner Family
DX: M54.42 Lumbago with sciatica, left side (principal)
CPT/HCPCS: 72100

== ENCOUNTER 2021-05-24 22:16 | Emergency (ER) | payer MEDICAID ==
[~2021-05-24] VITALS: Ht 152 cm; Wt 107.5 kg
[2021-05-24 22:25] VITALS: BP 162/95
[2021-05-24] MEDS ORDERED: NS IV 1000 ML 1,000 ML IV STA (22:32)
[2021-05-24] MEDS ORDERED: KETOROLAC 30 MG/ML VIAL IVP STA (22:32)
--- NOTE | 2021-05-24 22:32 | ED Cough/URI ---
General Chief Complaint: COVID19 Suspect/Confirmed Stated Complaint: SOB,COUGH,MIGRIANE,NAUSEA History of Present Illness Date Seen by Provider: May 24, 2021 Time Seen by Provider: 22:30 Initial Comments 40-year-old female presents with cough, some nausea and vomiting. Patient reports she feels little short of breath. Patient has a history of both asthma and COPD. She does have some exposure to Covid with family member testing positive today but she has not been around a family member for least 5 days. Patient denies any fever. Allergies and Home Medications Allergies Coded Allergies: gabapentin (Verified Allergy, Unknown, 01/25/19) metoclopramide (Unverified Allergy, Unknown, "CAUSES PT TO LOSE CONTROL OF MUSCLES", 01/25/19) Patient Home Medication List Home Medication List Reviewed: Yes Albuterol Sulfate (Proair Hfa) 1 Puff Puff, 2 PUFF IH Q4H PRN for WHEEZING, (Reported) Entered as Reported by: MADDY DANIELLE on 02/20/19 1051 Amoxicillin/Potassium Clav (Amox Tr-K Clv 875-125 mg Tab) 1 Each Tablet, 1 EACH PO BID Prescribed by: LEIGH ANGEL on 04/06/20 2359 Baclofen (Baclofen) 10 Mg Tablet, 10 MG PO Q8H PRN for back pain/spasm Prescribed by: LEIGH ANGEL on 06/27/19 2246 Ciprofloxacin HCl (Ciprofloxacin HCl) 500 Mg Tablet, 500 MG PO BID Prescribed by: MAYCOL GAGNON on 08/10/19 2347 Ciprofloxacin HCl (Ciprofloxacin HCl) 500 Mg Tablet, 500 MG PO BID Prescribed by: JENIFER GONZALES on 12/06/19 0158 Dicyclomine HCl (Dicyclomine HCl) 20 Mg Tablet, 20 MG PO Q6H PRN for abdominal pain Prescribed by: LEIGH ANGEL on 04/06/20 2335 Estradiol (Estradiol Tablet) 1 Mg Tablet, 1 MG PO DAILY, (Reported) Entered as Reported by: MADDY DANIELLE on 05/20/19 1327 Ethosuximide (Ethosuximide) 250 Mg Capsule, 250 MG PO HS, (Reported) Entered as Reported by: MADDY DANIELLE on 04/12/16 0942 Fluoxetine HCl (Fluoxetine HCl) 40 Mg Capsule, 40 MG PO DAILY, (Reported) Entered as Reported by: LILIBETH DOUGLAS on 01/26/19 0349 Fluticasone/Salmeterol (Advair 250-50 Diskus) 1 Each Blst.w.dev, 1 EACH IH BID, (Reported) Entered as Reported by: MADDY DANIELLE on 02/20/19 1051 Gentamicin Sulfate (Gentamicin Sulfate) 5 Ml Drops, 3 DROPS EACH EAR BID Prescribed by: ALLAN DURON on 05/23/19 0928 Hydrocodone/Acetaminophen (Hydrocodone-Acetamin 5-325 mg) 1 Each Tablet, 1 EACH PO Q4H Prescribed by: MAYCOL PRUITTSTDEBRA on 08/10/19 2347 Hyoscyamine Sulfate (Hyoscyamine Sulfate) 0.125 Mg Tab.rapdis, 0.125 MG PO Q4H PRN for DIARRHEA Prescribed by: SAMREEN SNYDER on 11/11/19 2342 Lisinopril (Lisinopril) 20 Mg Tablet, 20 MG PO DAILY, (Reported) Entered as Reported by: MADDY DANIELLE on 05/20/19 1324 Metronidazole (Flagyl) 500 Mg Tablet, 500 MG PO BID Prescribed by: MAYCOL PRUITTSTDEBRA on 08/10/19 234 Omeprazole (Omeprazole) 40 Mg Capsule.dr, 40 MG PO DAILY, (Reported) Entered as Reported by: LILIBETH DOUGLAS on 01/26/19 0349 Ondansetron (Ondansetron Odt) 4 Mg Tab.rapdis, 4 MG PO TID Prescribed by: MAYCOL PRUITTSTDEBRA on 08/10/19 234 Oxycodone HCl/Acetaminophen (Percocet 5-325 mg Tablet) 1 Each Tablet, 1 TAB PO Q6H Prescribed by: JENIFER GONZALES on 12/06/19 0158 Oxycodone HCl/Acetaminophen (Oxycodone-Acetaminophen 5-325) 1 Each Tablet, 1 EACH PO Q4H PRN for PAIN-SEVERE (8-10) Prescribed by: LEIGH ANGEL on 02/19/21 0101 Review of Systems Review of Systems Constitutional: malaise Respiratory: cough, short of breath Cardiovascular: No chest pain Gastrointestinal: No abdominal pain; nausea, vomiting Skin: no symptoms reported Psychiatric/Neurological: Headache Past Dslucis-Zmrgja-Ezadnt Hx Immunizations Up To Date Tetanus Booster (TDap): Unknown Seasonal Allergies Seasonal Allergies: Yes Past Medical History Surgeries: Yes (dental extractions, dxls, bmt, 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, LEFT EAR) Ear Surgery, Gallbladder, Hysterectomy, 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 Respiratory: Yes Asthma, COPD Currently Using CPAP: No Currently Using BIPAP: No Cardiac: Yes Heart Murmur, Hypertension Neurological: Yes Headaches /Migraines, Seizure Disorder 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 Disorders: Yes Female 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 Disorders: 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 [employer] History: Hysterectomy, 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 Sexually Transmitted Disease: No Genitourinary: Yes Kidney Stones Gastrointestinal: Yes Colitis, Gastroesophageal Reflux, Diverticulosis, Polyps, Ulcer Musculoskeletal: Yes (spina bifida) Arthritis, Scoliosis, Chronic Back Pain Endocrine: No HEENT: Yes Chronic Ear Infection Hearing Impairment: Denies, Hard of Hearing Cancer: No Psychosocial: Yes Anxiety, Depression Integumentary: No Blood Disorders: No Family Medical History No Pertinent Family Hx, GI Disease Physical Exam Vital Signs - First Documented 05/24/21 22:25 Temp 36.1 Pulse 95 Resp 20 B/P (MAP) 162/95 (117) Pulse Ox 97 O2 Delivery Room Air Capillary Refill : Height: 5'0" Weight: 235lbs. 0oz. 106.939701bh; 47.00 BMI Method:Stated General Appearance: no apparent distress, obese HEENT: PERRL/EOMI, normal ENT inspection Respiratory: no respiratory distress, no accessory muscle use, decreased breath sounds (mild ); No wheezing Cardiovascular: normal peripheral pulses, regular rate, rhythm Gastrointestinal: non tender, soft Extremities: normal inspection, normal capillary refill Neurologic/Psychiatric: alert, normal mood/affect, oriented x 3 Skin: normal color, warm/dry Progress/Results/Core Measures Suspected Sepsis SIRS Temperature: Pulse: Respiratory Rate: Laboratory Tests 05/24/21 22:55: White Blood Count 10.2 Blood Pressure / Mean: Laboratory Tests 05/24/21 22:55: Creatinine 0.78, Platelet Count 368, Total Bilirubin 0.2 Results/Orders Lab Results Laboratory Tests Test 05/24/21 22:55 05/24/21 22:58 05/24/21 23:37 Range/Units White Blood Count 10.2 4.3-11.0 10^3/uL Red Blood Count 3.91 3.80-5.11 10^6/uL Hemoglobin 11.1 L 11.5-16.0 g/dL Hematocrit 34 L 35-52 % Mean Corpuscular Volume 88 80-99 fL Mean Corpuscular Hemoglobin 28 25-34 pg Mean Corpuscular Hemoglobin Concent 33 32-36 g/dL Red Cell Distribution Width 14.8 H 10.0-14.5 % Platelet Count 368 130-400 10^3/uL Mean Platelet Volume 9.5 9.0-12.2 fL Immature Granulocyte % (Auto) 0 % Neutrophils (%) (Auto) 85 H 42-75 % Lymphocytes (%) (Auto) 9 L 12-44 % Monocytes (%) (Auto) 5 0-12 % Eosinophils (%) (Auto) 1 0-10 % Basophils (%) (Auto) 1 0-10 % Neutrophils # (Auto) 8.7 H 1.8-7.8 X 10^3 Lymphocytes # (Auto) 0.9 L 1.0-4.0 X 10^3 Monocytes # (Auto) 0.5 0.0-1.0 X 10^3 Eosinophils # (Auto) 0.1 0.0-0.3 10^3/uL Basophils # (Auto) 0.1 0.0-0.1 10^3/uL Immature Granulocyte # (Auto) 0.0 0.0-0.1 10^3/uL Sodium Level 140 135-145 MMOL/L Potassium Level 3.4 L 3.6-5.0 MMOL/L Chloride Level 104 98-107 MMOL/L Carbon Dioxide Level 25 21-32 MMOL/L Anion Gap 11 5-14 MMOL/L Blood Urea Nitrogen 8 7-18 MG/DL Creatinine 0.78 0.60-1.30 MG/DL Estimat Glomerular Filtration Rate 81 BUN/Creatinine Ratio 10 Glucose Level 89 70-105 MG/DL Calcium Level 8.8 8.5-10.1 MG/DL Corrected Calcium 8.6 8.5-10.1 MG/DL Total Bilirubin 0.2 0.1-1.0 MG/DL Aspartate Amino Transf (AST/SGOT) 42 H 5-34 U/L Alanine Aminotransferase (ALT/SGPT) 20 0-55 U/L Alkaline Phosphatase 144 H 40-136 U/L C-Reactive Protein 2.29 H <0.50 MG/DL Total Protein 7.4 6.4-8.2 GM/DL Albumin 4.2 3.2-4.5 GM/DL Influenza Type A Antigen NEGATIVE NEGATIVE Influenza Type B Antigen NEGATIVE NEGATIVE Urine Color YELLOW Urine Clarity CLEAR Urine pH 6.5 5-9 Urine Specific [place] 1.010 L 1.016-1.022 Urine Protein NEGATIVE NEGATIVE Urine Glucose (UA) NEGATIVE NEGATIVE Urine Ketones NEGATIVE NEGATIVE Urine Nitrite NEGATIVE NEGATIVE Urine Bilirubin NEGATIVE NEGATIVE Urine Urobilinogen 0.2 < = 1.0 MG/DL Urine Leukocyte Esterase NEGATIVE NEGATIVE Urine RBC (Auto) NEGATIVE NEGATIVE Urine RBC RARE /HPF Urine WBC RARE /HPF Urine Squamous Epithelial Cells 2-5 /HPF Urine Crystals NONE /LPF Urine Bacteria NEGATIVE /HPF Urine Casts NONE /LPF Urine Mucus SMALL H /LPF Urine Culture Indicated NO My Orders Orders - MALONEY,DIONI L DO Cbc With Automated Diff (05/24/21 22:32) Comprehensive Metabolic Panel (05/24/21 22:32) Ua Culture If Indicated (05/24/21 22:32) Crp Fs (05/24/21 22:32) Chest 1 View Ap/Pa Only (05/24/21 22:32) Influenza A & B Antigens (05/24/21 22:32) Covid 19 Inhouse Test (05/24/21 22:32) Ondansetron Injection (Zofran Injectio (05/24/21 22:45) Ns Iv 1000 Ml (Sodium Chloride 0.9%) (05/24/21 22:32) Dexamethasone Injection (Decadron Inje (05/24/21 22:45) Ketorolac Injection (Toradol Injection) (05/24/21 22:32) Albuterol Inhaler (Albuterol) (05/24/21 22:45) Iv/Invasive Line Insertion .IV start (05/24/21 23:05) Medications Given in ED Current Medications Medications Dose Ordered Sig/Brissa Route Start Time Stop Time Status Last Admin Dose Admin Albuterol Sulfate 4 PUFFS Q2H PRN IH 05/24/21 22:45 05/24/21 22:52 8.5 GM Dexamethasone Sodium Phosphate 10 mg ONCE ONCE IV 05/24/21 22:45 05/24/21 22:46 DC 05/24/21 22:51 10 MG Ondansetron HCl 4 mg ONCE ONCE IVP 05/24/21 22:45 05/24/21 22:46 DC 05/24/21 22:51 4 MG Vital Signs/I&O 05/24/21 05/24/21 05/24/21 22:25 22:52 23:30 Temp 36.1 Pulse 95 94 Resp 20 20 B/P (MAP) 162/95 (117) 154/78 Pulse Ox 97 97 96 O2 Delivery Room Air Room Air Room Air Capillary Refill : Progress Note : Progress Note Patient with no acute findings on chest x-ray, O2 saturations remained in the upper 90. No significant findings on her labs. Her Covid test is pending. I s uspect she is probably has a mild viral illness that has exacerbated her COPD/asthma. She is stable and discharged home Departure Impression Primary Impression: Upper respiratory infection Qualified Codes: J06.9 - Acute upper respiratory infection, unspecified Disposition: 01 HOME, SELF-CARE Condition: Stable Departure-Patient Inst. Referrals: [facility]/JENNIFER (PCP) Primary Care Physician MAYKEL CUMMINS APRN (Family) Primary Care Physician Patient Instructions: Upper Respiratory Infection ED, Viral Upper Respiratory Infection, Adult (DC) DIONI MALONEY DO May 24, 2021 22:32
[2021-05-24] MEDS ORDERED: ONDANSETRON 4 MG/2 ML (SDV) Z0FRAN IVP ONE (22:45)
[2021-05-24] MEDS ORDERED: RT-ALBUTEROL HFA 8.5 GM INHALER IH PRN (22:45)
--- NOTE | 2021-05-24 23:05 | Diagnostic Imaging Report ---
INDICATION: Cough COMPARISON: 01/15/2019 FINDINGS: Single view of the chest demonstrates clear lungs bilaterally. The heart is normal. There is no pneumothorax. The osseous structures are normal. IMPRESSION: Negative chest Dictated by: Dictated on workstation # [id number]
[2021-05-24 23:14] LABS: HEMATOCRIT 34 % (35-52); HEMOGLOBIN 11.1 g/dL (11.5-16.0); MEAN CORPUSCULAR HEMOGLOBIN 28 pg (25-34); MEAN CORPUSCULAR HGB CONC 33 g/dL (32-36); MEAN CORPUSCULAR VOLUME 88 fL (80-99); PLATELET COUNT 368 10^3/uL (130-400); WHITE BLOOD COUNT 10.2 10^3/uL (4.3-11.0)
[2021-05-24 23:15] LABS: BASOPHILS # (AUTO) 0.1 10^3/uL (0.0-0.1); BASOPHILS % (AUTO) 1 % (0-10); EOSINOPHILS # (AUTO) 0.1 10^3/uL (0.0-0.3); EOSINOPHILS % (AUTO) 1 % (0-10); LYMPHOCYTES # (AUTO) 0.9 X 10^3 (1.0-4.0); LYMPHOCYTES % (AUTO) 9 % (12-44); MEAN PLATELET VOLUME 9.5 fL (9.0-12.2); MONOCYTES # (AUTO) 0.5 X 10^3 (0.0-1.0); MONOCYTES % (AUTO) 5 % (0-12); NEUTROPHILS # (AUTO) 8.7 X 10^3 (1.8-7.8); NEUTROPHILS % (AUTO) 85 % (42-75)
[2021-05-24 23:29] LABS: ALBUMIN 4.2 GM/DL (3.2-4.5); BILIRUBIN,TOTAL 0.2 MG/DL (0.1-1.0); CALCIUM 8.8 MG/DL (8.5-10.1); CREATININE SERUM 0.78 MG/DL (0.60-1.30); POTASSIUM 3.4 MMOL/L (3.6-5.0); TOTAL PROTEIN 7.4 GM/DL (6.4-8.2)
[2021-05-24 23:46] LABS: BILIRUBIN,URINE NEGATIVE (NEGATIVE); CLARITY,URINE CLEAR; COLOR,URINE YELLOW; GLUCOSE, URINE (UA) NEGATIVE (NEGATIVE); KETONES,URINE NEGATIVE (NEGATIVE); LEUKOCYTE ESTERASE ,URINE NEGATIVE (NEGATIVE); NITRITE,URINE NEGATIVE (NEGATIVE); PH,URINE 6.5 (5-9); PROTEIN,URINE NEGATIVE (NEGATIVE)
[2021-05-24 23:53] LABS: BACTERIA,URINE NEGATIVE /HPF; RBC,URINE RARE /HPF; WBC,URINE RARE /HPF
== END 2021-05-25 00:16 | disposition home or self-care (01) ==
LOC: EDUNIT# 22:16 → ER FS 22:17
DX: U07.1 COVID-19 (principal); J44.9 Chronic obstructive pulmonary disease, unspecified; I10 Essential (primary) hypertension; K21.9 Gastro-esophageal reflux disease without esophagitis; G89.29 Other chronic pain; M54.9 Dorsalgia, unspecified; E66.9 Obesity, unspecified; F41.9 Anxiety disorder, unspecified; F32.9 Major depressive disorder, single episode, unspecified; G40.909 Epilepsy, unspecified, not intractable, without status epilepticus; Z68.42 Body mass index [BMI] 45.0-49.9, adult; Z79.891 Long term (current) use of opiate analgesic; Z79.899 Other long term (current) drug therapy
CPT/HCPCS: 36415; 71045; 80053; 81000; 85025; 86141; 87635; 87636; 87804; 94640; 96374; 96375

== ENCOUNTER 2021-06-28 06:28 | Outpatient (RCR) | payer MEDICAID ==
[~2021-06-28] VITALS: Ht 152.4 cm; Wt 107.5 kg
[2021-06-28] MEDS ORDERED: ATEN25TA PO (13:02)
[2021-06-28] MEDS ORDERED: CYCL10TA25 PO (13:02)
[2021-06-28] MEDS ORDERED: MELO15TA39 PO (13:02)
[2021-06-28] MEDS ORDERED: SUMA100T3 PO (13:02)
== END 2021-06-28 14:16 | disposition home or self-care (01) ==
LOC: PREOP 06:28 → EDSTATUS 09:00 → PREOP 14:16
PROVIDERS: ATTEND Surgery
DX: Z01.818 Encounter for other preprocedural examination (principal)

== ENCOUNTER 2021-07-06 09:18 | Day surgery (SDC) | payer MEDICAID ==
[~2021-07-06] VITALS: Ht 152 cm; Wt 108.0 kg
[~2021-07-06 09:18] MED LIST changes: +ATEN25TA PO; +MELO15TA39 PO; +SUMA100T3 PO
[2021-07-06] MEDS ORDERED: LACTATED RINGERS 1,000 ML IV STA (09:20)
[2021-07-06 09:30] VITALS: BP 186/105
[2021-07-06] MEDS ORDERED: HURRICAINE EXT TUBE (BENZOCAINE) XX PRN (09:30)
[2021-07-06] MEDS ORDERED: MIDAZOLAM 2 MG/2 ML (VERSED) VIAL ONE (10:01)
[2021-07-06] MEDS ORDERED: PROPOFOL INJECTION 50 ML IV ONE (10:01)
--- NOTE | 2021-07-06 10:04 | Progress Note-Pre Operative ---
Pre-Operative Progress Note H&P Reviewed The H&P was reviewed, patient examined and no changes noted. Date Seen by Provider: Jul 06, 2021 Time Seen by Provider: 10:04 Date H&P Reviewed: Jul 06, 2021 Time H&P Reviewed: 10:04 Pre-Operative Diagnosis: melena gerd RAN CANTRELL DO Jul 06, 2021 10:04
--- NOTE | 2021-07-06 10:37 | Progress Note-Post Operative ---
Post-Operative Progess Note Surgeon (s)/Chief Nurse (s) Surgeon RAN CANTRELL DO Chief Nurse: na Pre-Operative Diagnosis melena gerd Post-Operative Diagnosis internal hemorrhoids Procedure & Operative Findings Date of Procedure 07/06/21 Procedure Performed/Findings egd c biopsies, colonoscopy Anesthesia Type per cocoa room operator Estimated Blood Loss Estimated blood loss (mL): none Specimens/Packing Specimens Removed antrum, ge RAN CANTRELL DO Jul 06, 2021 10:37
--- NOTE | 2021-07-06 10:38 | Discharge Inst-Simple/Standard ---
Discharge Inst-Standard Patient Instructions/Follow Up Plan of Care/Instructions/FU: 2 weeks Stephanie Activity as Tolerated: Yes Discharge Diet: Regular Diet RAN CANTRELL DO Jul 06, 2021 10:38
[2021-07-06 10:44] VITALS: BP 162/86
[2021-07-06 10:49] VITALS: BP 165/93
[2021-07-06 10:55] VITALS: BP 169/94
[2021-07-06 11:15] VITALS: BP 158/91
--- NOTE | 2021-07-06 14:18 | Anesthesia-General Post-Op ---
MAC Patient Condition Mental Status/LOC: Same as Preop Cardiovascular: Satisfactory Nausea/Vomiting: Absent Respiratory: Satisfactory Pain: Controlled Complications: Absent Post Op Complications Complications None Follow Up Care/Instructions Patient Instructions None needed. Anesthesiology Discharge Order Discharge Order Patient is doing well, no complaints, stable vital signs, no apparent adverse anesthesia problems. No complications reported per nursing. SARAH LOREDO CRNA Jul 06, 2021 14:18
--- NOTE | 2021-07-06 15:07 | OPERATIVE REPORT ---
DATE OF SERVICE: 07/06/2021 PREOPERATIVE DIAGNOSES: Melena and gastroesophageal reflux disease. POSTOPERATIVE DIAGNOSIS: Internal hemorrhoids. PROCEDURES PERFORMED: EGD with biopsies and colonoscopy. SURGEON: Ran Brown DO. ANESTHESIA: Per BRIMMING MACHINE OPERATOR. ESTIMATED BLOOD LOSS: None. COMPLICATIONS: None. INDICATIONS FOR PROCEDURE: The patient is a 40-year-old female with melena stools and GERD symptoms. She understands the risks and benefits of the procedure and wishes to proceed. Consent was signed in the chart. DESCRIPTION OF PROCEDURE: The patient was taken to the endoscopy suite and placed in a left lateral recumbent position. Timeout was performed. Scope was inserted in the mouth, down the esophagus, stomach and into the duodenum without difficulty. No polyps, masses or ulcerations within the duodenum. Scope was slowly retracted back into the stomach, where it was further insufflated. No polyps, masses or ulcerations. Biopsy of the antrum was obtained. Scope was retroflexed noting no other pathology. Scope was returned to its normal position, slowly withdrawn to distal esophagus. No polyps, masses or ulcerations of the GE junction. Biopsy of the GE junction was obtained. Scope was slowly retracted back until completely removed. Digital rectal exam was performed noting some internal hemorrhoids. No palpable polyps, masses or ulcerations. Scope was inserted in the rectum and advanced all the way to the cecum with minimal difficulty. Prep was adequate. Scope was slowly retracted back. No polyps, masses or ulcerations within the cecum, ascending, transverse, descending, and sigmoid colon. Once in the rectum, scope was retroflexed just noting hemorrhoidal disease. Scope was returned to its normal position, slowly withdrawn until completely removed. The patient tolerated the procedure well without any complications. She was taken to the recovery room in a stable condition. RECOMMENDATIONS: The patient to continue on current medications. We will await biopsy results. Likely melena secondary to hemorrhoidal disease. If continues, we would consider capsule endoscopy. Job ID: [id number] DocumentID: [id number] Dictated Date: 07/06/2021 10:41:12 Golf Coach Date: 07/06/2021 15:06:10 Dictated By: RAN BROWN DO
== END 2021-07-06 11:54 | disposition home or self-care (01) ==
LOC: ENDO 09:18
PROVIDERS: ATTEND Surgery
DX: K64.8 Other hemorrhoids (principal); K21.9 Gastro-esophageal reflux disease without esophagitis; I10 Essential (primary) hypertension; J44.9 Chronic obstructive pulmonary disease, unspecified; K21.00 Gastro-esophageal reflux disease with esophagitis, without bleeding; E66.01 Morbid (severe) obesity due to excess calories; G40.909 Epilepsy, unspecified, not intractable, without status epilepticus; Z68.42 Body mass index [BMI] 45.0-49.9, adult; F17.210 Nicotine dependence, cigarettes, uncomplicated; Z86.010 Personal history of colon polyps; Z79.899 Other long term (current) drug therapy

== ENCOUNTER 2021-07-26 06:52 | Emergency (ER) | payer MEDICAID ==
[~2021-07-26] VITALS: Ht 152 cm; Wt 106.0 kg
[2021-07-26] MEDS ORDERED: meTOprolol TARTRATE 25 MG (LOPRESSOR) TABLET PO ONE (07:15)
[2021-07-26] MEDS ORDERED: PROCHLORPERAZINE 10 MG/2ML INJ (COMPAZINE) IM ONE (07:15)
[2021-07-26] MEDS ORDERED: diphenhydrAMINE 50 MG/ML INJ (BENADRYL) IM ONE (07:15)
[2021-07-26] MEDS ORDERED: KETOROLAC 30 MG/ML VIAL IM ONE (07:15)
[2021-07-26] MEDS ORDERED: lisINopril 10 MG (PRINIVIL) TABLET PO ONE (07:15)
--- NOTE | 2021-07-26 07:23 | ED Headache ---
General Chief Complaint: Head/Cervical Problems Stated Complaint: SOB/MIGRAINE Nursing Triage Note: PT REPORTS HEADACHE SINCE YESTERDAY, TOOK IMITREX ABOUT 0545 WITHOUT RELIEF, HAS NOT TAKEN HER BLOOD PRESSURE MEDICATION TODAY AND PRESENTS WITH HIGH BLOOD PRESSSURE UPON ARRIVAL. PT ALSO REPORTS HER RIGHT EYE IS MATTED AND SHE HAS HAD A COUGH WITH SOME SHORTNESS OF BREATH. Source: patient Exam Limitations: no limitations History of Present Illness Date Seen by Provider: Jul 26, 2021 Time Seen by Provider: 06:58 Initial Comments 40yoF with PMH of hypertension and COPD (still smoking) coming in due to worsening headache since yesterday morning. Feels mostly on the front right part of forehead. Is sharp, constant, moderate, and worsening. Took her imitrex this morning which is not helping. Feels similar to prior headaches which she gets about every 1-3 months. Did not take her meds this morning because of it and worried she would feel nauseas so missed her BP meds. Has had a chronic cough with smoking and said it has increased over the past day. Feels more short of air while coughing, but improves after. Denies any chest pain, SOA while sitting here resting, leg swelling/pain, recent surgeries, hemoptysis, abd pain, current n/v/d, weakness, numbness, vision changes, fever, neck stiffness. Someone around her has a cold and has tested negative for COVID twice. Allergies and Home Medications Allergies Coded Allergies: gabapentin (Verified Allergy, Unknown, 01/25/19) metoclopramide (Unverified Allergy, Unknown, "CAUSES PT TO LOSE CONTROL OF MUSCLES", 01/25/19) Patient Home Medication List Home Medication List Reviewed: Yes Albuterol Sulfate (Proair Hfa) 1 Puff Puff, 2 PUFF IH Q4H PRN for WHEEZING, (Re ported) Entered as Reported by: MADDY DANIELLE on 02/20/19 1051 Atenolol (Atenolol) 25 Mg Tablet, 25 MG PO BID, (Reported) Entered as Reported by: MEGHAN LEES on 06/28/21 1302 Cyclobenzaprine HCl (Cyclobenzaprine HCl) 10 Mg Tablet, 10 MG PO TID, (Reported) Entered as Reported by: MEGHAN LEES on 06/28/21 1302 Doxycycline Hyclate (Doxycycline Hyclate) 100 Mg Tablet, 100 MG PO BID Prescribed by: TONY GOFF on 07/26/21 0735 Estradiol (Estradiol Tablet) 1 Mg Tablet, 1 MG PO DAILY, (Reported) Entered as Reported by: MADDY DANIELLE on 05/20/19 1327 Ethosuximide (Ethosuximide) 250 Mg Capsule, 250 MG PO HS, (Reported) Entered as Reported by: MADDY DANIELLE on 04/12/16 0942 Fluoxetine HCl (Fluoxetine HCl) 40 Mg Capsule, 40 MG PO DAILY, (Reported) Entered as Reported by: LILIBETH DOUGLAS on 01/26/19 0349 Fluticasone/Salmeterol (Advair 250-50 Diskus) 1 Each Blst.w.dev, 1 EACH IH BID, (Reported) Entered as Reported by: MADDY DANIELLE on 02/20/19 1051 Lisinopril (Lisinopril) 20 Mg Tablet, 20 MG PO DAILY, (Reported) Entered as Reported by: MADDY DANIELLE on 05/20/19 1324 Meloxicam (Meloxicam) 15 Mg Tablet, 15 MG PO DAILY, (Reported) Entered as Reported by: MEGHAN LEES on 06/28/21 1302 Methylprednisolone (Methylprednisolone Dose Pack) 4 Mg Tab.ds.pk, 4 MG PO UD Prescribed by: TONY GOFF on 07/26/21 0735 Omeprazole (Omeprazole) 40 Mg Capsule.dr, 40 MG PO DAILY, (Reported) Entered as Reported by: LILIBETH DOUGLAS on 01/26/19 0349 Ondansetron (Ondansetron Odt) 4 Mg Tab.rapdis, 4 MG PO TID Prescribed by: MAYCOL GAGNON on 08/10/19 2347 Sumatriptan Succinate (Sumatriptan Succinate) 100 Mg Tablet, 100 MG PO PRN, (Reported) Entered as Reported by: MEGHAN LEES on 06/28/21 1302 Review of Systems Review of Systems Constitutional: No chills Eyes: Denies Blurred Vision Ears, Nose, Mouth, Throat: no symptoms reported Respiratory: cough, short of breath Cardiovascular: no symptoms reported Gastrointestinal: no symptoms reported Genitourinary: no symptoms reported Musculoskeletal: no symptoms reported Skin: no symptoms reported Psychiatric/Neurological: Headache All Other Systems Reviewed Negative Unless Noted: Yes Past Nllgpkx-Ldceuu-Fpgnfr Hx Patient Social History Tobacco Use?: Yes Tobacco type used: Cigarettes Smoking Status: Current Everyday Smoker Use of E-Cig and/or Vaping dev: No Substance use?: No Alcohol Use?: No Pt feels they are or have been: No Immunizations Up To Date Tetanus Booster (TDap): Unknown Seasonal Allergies Seasonal Allergies: Yes Past Medical History Surgery/Hospitalization HX: HYSTERECTOMY LAP DANIA Surgeries: Yes (dental extractions, dxls, bmt, 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, LEFT EAR) Section, Ear Surgery, Gallbladder, Hysterectomy, 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 Respiratory: Yes Asthma, COPD Currently Using CPAP: No Currently Using BIPAP: No Cardiac: Yes Heart Murmur, Hypertension, Irregular Heartbeat Neurological: Yes Headaches /Migraines, Seizure Disorder 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 Disorders: Yes Female 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 Disorders: 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 [employer]ING [employer] History: Hysterectomy, 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 Sexually Transmitted Disease: No Genitourinary: Yes Kidney Stones Gastrointestinal: Yes Colitis, Gastroesophageal Reflux, Diverticulosis, Polyps, Ulcer Musculoskeletal: Yes (spina bifida) Arthritis, Scoliosis, Chronic Back Pain Endocrine: No HEENT: Yes Chronic Ear Infection Hearing Impairment: Denies, Hard of Hearing Cancer: No Psychosocial: Yes Anxiety, Depression Integumentary: No Blood Disorders: No Family Medical History No Pertinent Family Hx, GI Disease Physical Exam Vital Signs Vital Signs - First Documented 07/26/21 07:04 Temp 36.7 Pulse 104 Resp 18 B/P (MAP) 214/101 (138) Pulse Ox 98 O2 Delivery Room Air Capillary Refill : Less Than 3 Seconds Height, Weight, BMI Height: 5'0" Weight: 235lbs. 0oz. 106.484356pr; 45.00 BMI Method:Stated General Appearance: WD/WN, no apparent distress HEENT: PERRL/EOMI, normal ENT inspection, TMs normal, pharynx normal, other (no meningismus) Neck: non-tender, full range of motion, supple, normal inspection Cardiovascular: regular rate, rhythm, no edema, no murmur Respiratory: chest non-tender, lungs clear, normal breath sounds, no respiratory distress, no accessory muscle use Gastrointestinal: normal bowel sounds, non tender, soft; No distended, No guarding, No rebound Back: normal inspection, no CVA tenderness, no vertebral tenderness Extremities: normal range of motion, non-tender, normal inspection, no pedal edema, no calf tenderness, normal capillary refill Psychiatric: alert, oriented x 3 Crainal Nerves: normal hearing, normal speech, PERRL Coordination/Gait: normal gait Motor/Sensory: no motor deficit, no sensory deficit Skin: normal color, warm/dry Lymphatic: no adenopathy Progress/Results/Core Measures Results/Orders My Orders Orders - TONY GOFF MD Chest 1 View Ap/Pa Only (07/26/21 07:09) Prochlorperazine Injection (Compazine In (07/26/21 07:15) Diphenhydramine Injection (Benadryl Inje (07/26/21 07:15) Ketorolac Injection (Toradol Injection) (07/26/21 07:15) Lisinopril Tablet (Zestril Tablet) (07/26/21 07:15) Metoprolol Tartrate (Ir) Tab (Lopressor (07/26/21 07:15) Medications Given in ED Current Medications Medications Dose Ordered Sig/Brissa Route Start Time Stop Time Status Last Admin Dose Admin Diphenhydramine HCl 25 mg ONCE ONCE IM 07/26/21 07:15 07/26/21 07:16 DC 07/26/21 07:21 25 MG Ketorolac Tromethamine 15 mg ONCE ONCE IM 07/26/21 07:15 07/26/21 07:16 DC 07/26/21 07:20 15 MG Lisinopril 20 mg ONCE ONCE PO 07/26/21 07:15 07/26/21 07:16 DC 07/26/21 07:21 20 MG Metoprolol Tartrate 25 mg ONCE ONCE PO 07/26/21 07:15 07/26/21 07:16 DC 07/26/21 07:21 25 MG Prochlorperazine Edisylate 10 mg ONCE ONCE IM 07/26/21 07:15 07/26/21 07:16 DC 07/26/21 07:19 10 MG Vital Signs/I&O 07/26/21 07:04 Temp 36.7 Pulse 104 Resp 18 B/P (MAP) 214/101 (138) Pulse Ox 98 O2 Delivery Room Air Blood Pressure Mean: 138 Progress Progress Note : Progress Note 40yoF with above history coming in due to headache and cold like symptoms. ABCs intact with normal vitals except blood pressure which was elevated in the setting of her not taking her medications. Gave her the home meds she missed (lisinopril 20mg and substituted her atenolol 50mg for metoprolol since we don't have atenolol in our machine). Gave her a headache cocktail IM. CXR for the cough with mild SOA. Offered to do COVID and flu testing but she does not want that done at this time (had positive test for COVID in our system 2 months ago). She is afebrile, well appearing, no meningismus and I have a low suspicion for meningitis or significant infection. This is a typical pattern for her normal headaches which is reassuring. On reassessment, headache had improved, and blood pressure is trending down. Given the patient's COPD history with the worsening more productive cough with a clear chest x-ray and normal vitals, still could be COPD exacerbation that is mild. We will send her antibiotics and steroids for that. Likely caused by viral illness that she got from one of her close relatives. I believe she is stable for discharge with outpatient follow-up. She was sent home with strict return precautions Diagnostic Imaging Diagonstic Imaging: Xray Plain Films/CT/US/NM/MRI: chest Comments [facility] [place], [place] NAME: JUVENTINO BEAN [facility] REC#: [id number] PT STATUS: REG ER : 1980 PHYSICIAN: TONY GOFF MD ADMIT DATE: 07/26/21/ER FS Draft Date of Exam:07/26/21 CHEST 1 VIEW AP/PA ONLY Indication: Cough and congestion. Comparison: 05/24/2021 Findings: Single view of the chest demonstrates clear lungs bilaterally. The heart is normal. There is no pneumothorax. Osseous structures normal. Impression: Negative chest Dictated on workstation # [id number] Dict: 07/26/21726 Trans: 07/26/2129 CV [id number] Interpreted by: JANA ANDERSON Electronically signed by: Departure Impression Primary Impression: Headache Qualified Codes: R51.9 - Headache, unspecified Additional Impressions: URI (upper respiratory infection) Qualified Codes: J06.9 - Acute upper respiratory infection, unspecified COPD exacerbation Disposition: HOME, SELF-CARE Condition: Stable Departure-Patient Inst. Decision time for Depature: 07:45 Referrals: [facility]/JENNIFER (PCP) Primary Care Physician MAYKEL CUMMINS APRN (Family) Primary Care Physician Patient Instructions: COPD Exacerbation, Adult ED, Headache, Adult (DC) Add. Discharge Instructions: I sent antibiotics and steroids for your likely COPD exacerbation caused by a virus that you received from someone you were around. Please be sure to finish these. Drink plenty of fluids and you can take ibuprofen and/or Tylenol for your headache. Scripts Methylprednisolone (Methylprednisolone Dose Pack) 4 Mg Tab.ds.pk 4 MG PO UD for 6 Days, #21 PKG PER DOSE PACK INSTRUCTIONS Prov: TONY GOFF MD 07/26/21 Doxycycline Hyclate (Doxycycline Hyclate) 100 Mg Tablet 100 MG PO BID for 5 Days, #10 TAB 0 Refills Prov: TONY GOFF MD 07/26/21 TONY GOFF MD Jul 26, 2021 07:23
--- NOTE | 2021-07-26 07:30 | Diagnostic Imaging Report ---
Indication: Cough and congestion. Comparison: 05/24/2021 Findings: Single view of the chest demonstrates clear lungs bilaterally. The heart is normal. There is no pneumothorax. Osseous structures normal. Impression: Negative chest Dictated by: Dictated on workstation # [id number]
[2021-07-26] MEDS ORDERED: DOXY100T2 PO (07:35)
[2021-07-26] MEDS ORDERED: METH4TAB10 PO (07:35)
[2021-07-26 07:52] VITALS: BP 201/102
[2021-07-26] MEDS ORDERED: DROPERIDOL 5 MG/2 ML (INAPSINE) ED ONLY! IM ONE (08:00)
== END 2021-07-26 07:53 | disposition home or self-care (01) ==
LOC: EDUNIT# 06:52 → ER FS 06:55
DX: J06.9 Acute upper respiratory infection, unspecified (principal); J44.1 Chronic obstructive pulmonary disease with (acute) exacerbation; F17.210 Nicotine dependence, cigarettes, uncomplicated
CPT/HCPCS: 71045

== ENCOUNTER → 2021-09-30 | Outpatient (CLI) | payer MEDICAID ==
[~2021-09-30] MED LIST changes: +DOXY100T2 PO; +METH4TAB10 PO; +REGADENOSON 0.4 MG/5 ML SYR (LEXISCAN) IV ONE
[2021-09-30] MEDS: CATHETER FLUSH 10 ML SYR IVP PRN ×2 (07:51→09:20)
[2021-09-30 09:18] VITALS: BP 155/98
--- NOTE | 2021-09-30 14:27 | NUCLEAR STRESS TEST ---
REGADENOSON NUCLEAR STRESS Date of procedure: 09/30/2021. Primary care provider: Gertrude Lam APRN Admitting physician: Buddy Mcwilliams Jr., MD. INDICATION: Abnormal electrocardiogram. BASELINE ELECTROCARDIOGRAM: Sinus tachycardia at 102 bpm with nonspecific intraventricular conduction delay and possible old inferior myocardial infarction. STRESS TEST PROCEDURE: The patient was administered 0.4 mg of intravenous Regadenoson. The resting heart rate was 102 bpm and the peak heart rate was 117 bpm. The resting blood pressure was 155/98 mmHg and the minimum blood pressure was 151/100 mmHg. This represents a normal heart rate and a normal blood pressure response to Regadenoson with resting tachycardia. The test was stopped due to the protocol. There was no chest discomfort during the test. There were no arrhythmias during the test. There were no significant stress induced electrocardiogram changes. NUCLEAR PROCEDURE: The patient was administered 11 mCi of intravenous technetium 99m Tetrofosmin at rest for the rest images. The patient was subsequently administered 32.3 mCi of intravenous technetium 99m Tetrofosmin at peak stress for the stress images. Following an appropriate wait after each injection, imaging was obtained. The images were subsequently processed and reformatted in the usual views. Gated imaging was obtained. The image quality was adequate with a mild degree of gastrointestinal attenuation artifact. CT attenuation correction was used as a adjunct to standard imaging. Both the corrected and uncorrected images were reviewed for interpretation. NUCLEAR RESULTS: There was a moderate sized, moderate intensity, predominantly reversible apical defect with a moderate amount of inducible ischemia with a summed stress score of 10 and a summed difference score of 8. There was normal left ventricular chamber size with an end-diastolic volume of 53 mL and an end- systolic volume of 17 mL. There was no evidence of transient ischemic dilatation. The TID ratio was 1.12. There was normal wall motion in all segments with a calculated ejection fraction of 69%. IMPRESSION: 1. Normal heart rate and blood pressure response to regadenoson with resting tachycardia. 2. There was no chest discomfort, arrhythmias, or electrocardiogram changes during the test. 3. There was a moderate sized, moderate intensity, predominantly reversible apical defect with a moderate amount of inducible ischemia with a summed stress score of 10 and a summed difference score of 8. 4. There was normal wall motion in all segments with a calculated ejection fraction of 69%. 5. This is an abnormal result representing a moderate risk for possible future coronary ischemic events. Certain portions of this document may have been dictated utilizing voice rec ognition technology. Inherent to this technology, typographical and grammatical errors may exist. As much as I am diligent to identify and correct these mistakes, some errors may remain in the document. BUDDY MCWILLIAMS JR, MD September 30, 2021 14:27
== END ==
LOC: CARD 08:15
PROVIDERS: ATTEND Internal Medicine Cardiovascular Disease
DX: R94.31 Abnormal electrocardiogram [ECG] [EKG] (principal)
CPT/HCPCS: 78452; 93017; A9502

== ENCOUNTER → 2021-10-07 | Outpatient (CLI) | payer MEDICAID ==
[~2021-10-07] MED LIST changes: -REGADENOSON 0.4 MG/5 ML SYR (LEXISCAN) IV ONE
== END ==
LOC: CARDFS 12:46
PROVIDERS: ATTEND Internal Medicine Cardiovascular Disease
DX: R94.31 Abnormal electrocardiogram [ECG] [EKG] (principal); I51.7 Cardiomegaly
CPT/HCPCS: 93306

== ENCOUNTER 2021-10-25 22:39 | Emergency (ER) | payer MEDICAID ==
[~2021-10-25] VITALS: Ht 152.4 cm; Wt 112.7 kg
--- NOTE | 2021-10-25 22:58 | ED Back Pain ---
General Chief Complaint: Back Problems Stated Complaint: BACK PAIN History of Present Illness Date Seen by Provider: Oct 25, 2021 Time Seen by Provider: 22:58 Initial Comments 41-year-old female with PMH of herniated disc/chronic back pain,is here with acute on chronic exacerbation of her low back pain. The pain worsened today morning. Patient states that she has been outside in her yard walking around for this. Denies sensory loss, bowel or bladder disturbances, fever, neck stiffness or neck pain, dysuria, nausea and vomiting. Denies lifting heavy boxes, etc Allergies and Home Medications Allergies Coded Allergies: gabapentin (Verified Allergy, Unknown, 01/25/19) metoclopramide (Unverified Allergy, Unknown, "CAUSES PT TO LOSE CONTROL OF MUSCLES", 01/25/19) Patient Home Medication List Home Medication List Reviewed: Yes Albuterol Sulfate (Proair Hfa) 1 Puff Puff, 2 PUFF IH Q4H PRN for WHEEZING, (Reported) Entered as Reported by: MADDY DANIELLE on 02/20/19 1051 Atenolol (Atenolol) 25 Mg Tablet, 25 MG PO BID, (Reported) Entered as Reported by: MEGHAN LEES on 06/28/21 1302 Cyclobenzaprine HCl (Cyclobenzaprine HCl) 10 Mg Tablet, 10 MG PO TID, (Reported) Entered as Reported by: MEGHAN LEES on 06/28/21 1302 Doxycycline Hyclate (Doxycycline Hyclate) 100 Mg Tablet, 100 MG PO BID Prescribed by: TONY GOFF on 07/26/21 0735 Estradiol (Estradiol Tablet) 1 Mg Tablet, 1 MG PO DAILY, (Reported) Entered as Reported by: MADDY DANIELLE on 05/20/19 1327 Ethosuximide (Ethosuximide) 250 Mg Capsule, 250 MG PO HS, (Reported) Entered as Reported by: MADDY DANIELLE on 04/12/16 0942 Fluoxetine HCl (Fluoxetine HCl) 40 Mg Capsule, 40 MG PO DAILY, (Reported) Entered as Reported by: LILIBETH DOUGLAS on 01/26/19 0349 Fluticasone/Salmeterol (Advair 250-50 Diskus) 1 Each Blst.w.dev, 1 EACH IH BID, (Reported) Entered as Reported by: MADDY DANIELLE on 02/20/19 1051 Lisinopril (Lisinopril) 20 Mg Tablet, 20 MG PO DAILY, (Reported) Entered as Reported by: MADDY DANIELLE on 05/20/19 1324 Meloxicam (Meloxicam) 15 Mg Tablet, 15 MG PO DAILY, (Reported) Entered as Reported by: MEGHAN LEES on 06/28/21 1302 Methylprednisolone (Methylprednisolone Dose Pack) 4 Mg Tab.ds.pk, 4 MG PO UD Prescribed by: TONY GOFF on 07/26/21 0735 Omeprazole (Omeprazole) 40 Mg Capsule.dr, 40 MG PO DAILY, (Reported) Entered as Reported by: LILIBETH DOUGLAS on 01/26/19 0349 Ondansetron (Ondansetron Odt) 4 Mg Tab.rapdis, 4 MG PO TID Prescribed by: MAYCOL GAGNON on 08/10/19 2347 Sumatriptan Succinate (Sumatriptan Succinate) 100 Mg Tablet, 100 MG PO PRN, (Reported) Entered as Reported by: MEGHAN LEES on 06/28/21 1302 Review of Systems Constitutional: see HPI EENTM: no symptoms reported Respiratory: no symptoms reported Cardiovascular: no symptoms reported Gastrointestinal: no symptoms reported Genitourinary: no symptoms reported Musculoskeletal: back pain Skin: no symptoms reported Psychiatric/Neurological: No Symptoms Reported Past Cujlyui-Oxrplv-Uuackz Hx Immunizations Up To Date Tetanus Booster (TDap): Unknown Seasonal Allergies Seasonal Allergies: Yes Past Medical History Surgery/Hospitalization HX: HYSTERECTOMY LAP DANIA Surgeries: Yes (dental extractions, dxls, bmt, 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, LEFT EAR) Section, Ear Surgery, Gallbladder, Hysterectomy, 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 Respiratory: Yes Asthma, COPD Currently Using CPAP: No Currently Using BIPAP: No Cardiac: Yes Heart Murmur, Hypertension, Irregular Heartbeat Neurological: Yes Headaches /Migraines, Seizure Disorder 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 Disorders: Yes Female 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 Disorders: 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 [employer]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 0oz. 106.435868jq; 45.00 BMI Method:Stated General Appearance: No Apparent Distress HEENT: PERRL/EOMI Neck: Full Range of Motion, Normal Inspection, Non Tender, Supple Cardiovascular: Regular Rate, Rhythm Respiratory: Chest Non Tender, Lungs Clear Back: Normal Inspection, No CVA Tenderness, Muscle Spasm (pyriformis muscle ) Extremity: Other (spine : scoliosis present. no bowel or bladder abnormalities, no saddle anesthesia, straight leg test normal) Neurologic/Psychiatric: Alert, Oriented x3 Skin: Normal Color, Warm/Dry Progress/Results/Core Measures Results/Orders My Orders Orders - VIANEY ANGLIN MD Ketorolac Injection (Toradol Injection) (10/25/21 23:15) Dexamethasone Injection (Decadron Inje (10/25/21 23:04) Progress Progress Note : Progress Note 1. PYRIFORMIS SYNDROME: - Toradol im and Dexa im - At home take Ibuprofen and tylenol for pain. Pt has a muscle relaxer at home which he can atke - No red flags - Over the counter lidocaine patches - Follow up with PCP within 7 days Departure Impression Primary Impression: Pyriformis syndrome Qualified Codes: G57.00 - Lesion of sciatic nerve, unspecified lower limb Disposition: HOME, SELF-CARE Condition: Stable Departure-Patient Inst. Referrals: MAYKEL CUMMINS APRN (PCP) Primary Care Physician [facility]/JENNIFER (Family) Primary Care Physician Patient Instructions: Muscle Strain (DC), Sciatica Add. Discharge Instructions: - No red flags - - Follow up with PCP within 7 days All discharge instructions reviewed with patient and/or family. Voiced under standing. VIANEY ANGLIN MD Oct 25, 2021 22:58
[2021-10-25] MEDS ORDERED: KETOROLAC 30 MG/ML VIAL IM ONE (23:15)
[2021-10-25 23:35] VITALS: BP 158/100
== END 2021-10-25 23:35 | disposition home or self-care (01) ==
LOC: EDUNIT# 22:39 → ER FS 22:40
DX: G57.00 Lesion of sciatic nerve, unspecified lower limb (principal)
CPT/HCPCS: 99284

== ENCOUNTER → 2021-11-01 | Outpatient (CLI) | payer MEDICAID ==
[~2021-11-01] MED LIST changes: +ASPI-1238 PO; +ATEN50TA PO; +ATOR10TA66 PO; +BUSP15TA60 PO; +HYDR-700 PO; +HYDR12.56 PO; +ISOS30TA82 PO; +ISOS60TA63 PO; +NITR0.4T42 SL; +PREG150C46 PO
[2021-11-01 08:58] LABS: BASOPHILS # (AUTO) 0.1 10^3/uL (0.0-0.1); BASOPHILS % (AUTO) 1 % (0-10); EOSINOPHILS # (AUTO) 0.2 10^3/uL (0.0-0.3); EOSINOPHILS % (AUTO) 2 % (0-10); HEMATOCRIT 34 % (35-52); HEMOGLOBIN 11.1 g/dL (11.5-16.0); LYMPHOCYTES % (AUTO) 32 % (12-44); MEAN CORPUSCULAR HEMOGLOBIN 27 pg (25-34); MEAN CORPUSCULAR HGB CONC 32 g/dL (32-36); MEAN CORPUSCULAR VOLUME 84 fL (80-99); MEAN PLATELET VOLUME 9.7 fL (9.0-12.2); MONOCYTES # (AUTO) 0.6 10^3/uL (0.0-1.0); MONOCYTES % (AUTO) 5 % (0-12); NEUTROPHILS # (AUTO) 7.7 10^3/uL (1.8-7.8); NEUTROPHILS % (AUTO) 61 % (42-75); PLATELET COUNT 374 10^3/uL (130-400); WHITE BLOOD COUNT 12.5 10^3/uL (4.3-11.0)
[2021-11-01 09:20] LABS: CREATININE SERUM 0.72 MG/DL (0.60-1.30); POTASSIUM 3.8 MMOL/L (3.6-5.0)
[2021-11-01 09:21] LABS: ALBUMIN 4.2 GM/DL (3.2-4.5); BILIRUBIN,TOTAL 0.3 MG/DL (0.1-1.0); CALCIUM 8.9 MG/DL (8.5-10.1); TOTAL PROTEIN 7.3 GM/DL (6.4-8.2)
== END ==
LOC: LAB FS 08:36
PROVIDERS: ATTEND Internal Medicine Cardiovascular Disease
DX: I27.20 Pulmonary hypertension, unspecified (principal); E78.2 Mixed hyperlipidemia; I10 Essential (primary) hypertension; K21.9 Gastro-esophageal reflux disease without esophagitis; J45.909 Unspecified asthma, uncomplicated; G40.909 Epilepsy, unspecified, not intractable, without status epilepticus; E66.01 Morbid (severe) obesity due to excess calories; F17.210 Nicotine dependence, cigarettes, uncomplicated
CPT/HCPCS: 36415; 80053; 85025; 85610

== ENCOUNTER → 2021-11-02 | Outpatient (CLI) | payer MEDICAID ==
--- NOTE | 2021-11-02 15:30 | Diagnostic Imaging Report ---
INDICATION: Low back pain. TIME OF EXAM: 3:08 PM. COMPARISON: Correlation is made with the prior radiograph from 05/20/2021. FINDINGS: The curvature and alignment are normal. The vertebral body heights are well-maintained. The disc spaces are preserved. No fracture or subluxation is identified. IMPRESSION: No acute bony abnormality is detected. Dictated by: Dictated on workstation # [id number]
== END ==
LOC: RAD FS 14:57
PROVIDERS: ATTEND Nurse Practitioner Family
DX: M54.42 Lumbago with sciatica, left side (principal)
CPT/HCPCS: 72100

== ENCOUNTER 2021-11-04 08:30 | Day surgery (SDC) | payer MEDICAID ==
[2021-11-04] VITALS (9 sets, daily range): BP systolic 116–196; BP diastolic 74–103
[~2021-11-04] VITALS: Ht 152.4 cm; Wt 111.6 kg
[~2021-11-04 08:30] MED LIST changes: -ASPI-1238 PO; +ASPIRIN 81 MG CHEW (CHILDREN'S ASA) PO ONE; -ATEN50TA PO; -ATOR10TA66 PO; -BUSP15TA60 PO; +CATHETER FLUSH 10 ML SYR IV PRN; +HEParin (CATH LAB) 2,000 ML IV ONE; -HYDR-700 PO; -HYDR12.56 PO; -ISOS30TA82 PO; -ISOS60TA63 PO; +LIDOCAINE 1% INJ 20 ML VIAL ONE; -NITR0.4T42 SL; +NS IV 1000 ML 1,000 ML IV ONE; +NS IV 1000 ML 1,000 ML ONE; -PREG150C46 PO
[2021-11-04] MEDS ORDERED: PREG150C46 PO (08:35)
[2021-11-04] MEDS ORDERED: ATEN50TA PO (08:35)
[2021-11-04] MEDS ORDERED: BUSP15TA60 PO (08:35)
[2021-11-04] MEDS ORDERED: ASPI-1238 PO (08:35)
[2021-11-04] MEDS ORDERED: ATOR10TA66 PO (08:35)
[2021-11-04] MEDS ORDERED: HYDR12.56 PO (08:35)
[2021-11-04] MEDS ORDERED: ISOS30TA82 PO (08:35)
[2021-11-04] MEDS ORDERED: HYDR-700 PO (08:35)
--- NOTE | 2021-11-04 08:42 | Pre-Op Note & Conscious Sedat ---
Pre-Operative Progress Note H&P Reviewed The H&P was reviewed, patient examined and no changes noted. Date H&P Reviewed: Nov 04, 2021 Time H&P Reviewed: 08:41 Pre-Op Diagnosis: Chest pain and abnormal stress test Given her current clinical status she is considered vulnerable. She has a moderate sized ischemic defect on her stress test. She has no history of heart failure. Conscious Sedation Pre-Proced Time 08:42 ASA Score 2 For ASA 3 and 4: Consider anesthesia and medical clearance. Also, for patients with a history of failed moderate sedation consider anesthesia. Airway Lungs Heart ASA score ASA 1: a normal healthy patient ASA 2: a patient with a mild systemic disease (mid diabetes, controlled hypertension, obesity ASA 3: a patient with a severe systemic disease that limits activity (angina, COPD, prior Myocardial infarction) ASA 4: a patient with an incapacitating disease that is a constant threat to life (CHF, renal failure) ASA 5: a moribund patient not expected to survive 24 hrs. (ruptured aneurysm) ASA 6: a declared brain- patient whose organs are being harvested. For emergent operations, add the letter E after the classification Mallampati Classification Grade 3 Sedation Plan Analgesia, Amnesia, Plan communicated to team members, Discussed options with patient/fam, Discussed risks with patient/fam The patient is an appropriate candidate to undergo the planned procedure, sedation, and anesthesia. The patient immediately re-assessed prior to indication. RAHEEM LI JR, MD Nov 04, 2021 08:42
[2021-11-04] MEDS ORDERED: HEParin 1000 UNIT/ML (10ML VIAL) FOR BOLUS ONE (09:06)
[2021-11-04] MEDS ORDERED: VERAPAMIL 5 MG/2 ML (CALAN) VIAL IV ONE (09:06)
[2021-11-04] MEDS ORDERED: fentaNYL INJ 100 MCG/2 ML AMP ONE (09:06)
[2021-11-04] MEDS ORDERED: MIDAZOLAM 5 MG/5 ML (VERSED) VIAL ONE (09:06)
[2021-11-04] MEDS ORDERED: NITRO DRIP 25000 MCG/D5W 250 ML IV ONE (09:06)
[2021-11-04] MEDS ORDERED: NS IV 1000 ML 1,000 ML IV SCH (10:00)
[2021-11-04] MEDS ORDERED: ISOSORBIDE MONONITRATE 60 MG (IMDUR) TAB PO ONE ×2 (10:00→11:00)
[2021-11-04] MEDS ORDERED: ISOS60TA63 PO (10:03)
--- NOTE | 2021-11-04 10:06 | Cardiac Cath Report ---
CARDIAC CATHETERIZATION DATE OF PROCEDURE: 11/04/2021 INDICATION: Chest pain and abnormal nuclear stress test. HISTORY: The patient is a 41 year old female with no previously known history of coronary artery disease. She recently presented to my office for an evaluation of chest pain. I had her undergo nuclear stress test that showed a moderate sized apical ischemic defect. She was placed on long-acting nitrates in addition to her beta-ishan. She continued to have intermittent chest tightness. Therefore, she is now referred for further evaluation with a cardiac catheterization. Given her current clinical status, she is considered vulnerable. She has no history of heart failure. PROCEDURES PERFORMED: 1. Left heart catheterization with hemodynamic measurements. 2. Diagnostic [place] coronary angiography. PROCEDURE DESCRIPTION: After informed consent and in the fasting state, left heart catheterization was performed through the right radial artery utilizing a 6 [place] system by percutaneous approach. A 5 [place] JR4 catheter was utilized to interrogate the right coronary artery and right ventricle and a 5 [place] FL 3.5 catheter was utilized to interrogate the left coronary artery. All catheters were exchanged over a guidewire. Following the procedure, a vascular band was applied to the radial artery access site and the sheath was removed with good hemostasis. RESULTS: HEMODYNAMICS: The aortic pressure was 163/98 mmHg. The left ventricular pressure was 151/0 mmHg with a left ventricular end-diastolic pressure of 14 mmHg. There was no significant pressure gradient upon pullback across aortic valve. CORONARY ANGIOGRAPHY: Left main coronary artery: Short but free of significant disease. Left anterior descending coronary artery: There was some proximal calcification followed by a 50% stenosis in the mid segment at the takeoff of a large diagonal branch. The diagonal branch had a 70% stenosis in the ostium. This was a bifurcation lesion with Rodriguez classification of 1, 1, 1. There was GABRIELLE-2 flow. Left circumflex coronary artery: Free of significant disease. Right coronary artery: Dominant and there was a 20% stenosis in the proximal segment with GABRIELLE-2 flow to the distal branches. IMPRESSION: 1. Systemic hypertension with mildly elevated left ventricular end-diastolic pressure. 2. Mild to moderate two-vessel coronary artery disease involving the mid left anterior descending and proximal right coronary artery as outlined above. 3. The patient is known to have normal left ventricular systolic function with an estimated ejection fraction of 69% by nuclear stress test performed on 09/30/2021. 4. The patient will be continued on aspirin and beta-ishan. I will increase the long-acting nitrates. If she has ongoing chest discomfort, we may need to consider complex bifurcation intervention to the left anterior descending coronary artery and first diagonal branch. Certain portions of this document may have been dictated utilizing voice recognition technology. Inherent to this technology, typographical and grammatical errors may exist. As much as I am diligent to identify and correct these mistakes, some errors may remain in the document. RAHEEM LI JR, MD Nov 04, 2021 10:06
[2021-11-04] MEDS ORDERED: NITROGLYCERIN 0.4 MG SL TABS BTL 25'S SL PRN (10:15)
[2021-11-04] MEDS ORDERED: NITR0.4T42 SL (10:21)
[2021-11-04] MEDS ORDERED: oxyCODONE/APAP 10/325MG (PERCOCET 10) TABLET PO ONE (10:45)
[2021-11-05] MEDS ORDERED: ISOSORBIDE MONONITRATE 60 MG (IMDUR) TAB PO SCH (09:00)
== END 2021-11-04 13:20 ==
LOC: CATH 08:30 → SDC 10:20 → CATH 13:20
PROVIDERS: ATTEND Internal Medicine Cardiovascular Disease
DX: I25.10 Atherosclerotic heart disease of native coronary artery without angina pectoris (principal); I10 Essential (primary) hypertension; R94.39 Abnormal result of other cardiovascular function study; I27.20 Pulmonary hypertension, unspecified; E78.2 Mixed hyperlipidemia; K21.9 Gastro-esophageal reflux disease without esophagitis; J45.909 Unspecified asthma, uncomplicated; G40.909 Epilepsy, unspecified, not intractable, without status epilepticus; E66.01 Morbid (severe) obesity due to excess calories; Z68.42 Body mass index [BMI] 45.0-49.9, adult; F17.210 Nicotine dependence, cigarettes, uncomplicated; Z79.899 Other long term (current) drug therapy
CPT/HCPCS: 87081; 93458

== ENCOUNTER 2021-12-28 02:07 | Observation (INO) | payer MEDICAID ==
[~2021-12-28] VITALS: Ht 152.4 cm; Wt 111.0 kg
[~2021-12-28 02:07] MED LIST changes: +ASPI-1238 PO; -ASPIRIN 81 MG CHEW (CHILDREN'S ASA) PO ONE; +ATEN50TA PO; +ATOR10TA66 PO; +BUSP15TA60 PO; -CATHETER FLUSH 10 ML SYR IV PRN; -HEParin (CATH LAB) 2,000 ML IV ONE; +HYDR-700 PO; +HYDR12.56 PO; +ISOS30TA82 PO; +ISOS60TA63 PO; -LIDOCAINE 1% INJ 20 ML VIAL ONE; +NITR0.4T42 SL; -NS IV 1000 ML 1,000 ML IV ONE; -NS IV 1000 ML 1,000 ML ONE; +PREG150C46 PO
--- NOTE | 2021-12-28 02:11 | ED General ---
General Stated Complaint: CHEST PAINS, NAUSEA History of Present Illness Date Seen by Provider: Dec 28, 2021 Time Seen by Provider: 02:11 Initial Comments 41-year-old female with PMH of CAD with recent cardiac cath/spina bifida/gastritis/HTN/seizure disorder/active smoker, is here with complaints of retrosternal chest pain which began just after midnight today. Patient has associated acid reflux and heartburn. Denies palpitation, SOB, fever, cough, congestion, abdominal pain, nausea and vomiting. Patient took 3 nitro tabs at home prior to coming to the ER. Allergies and Home Medications Allergies Coded Allergies: gabapentin (Verified Allergy, Unknown, 01/25/19) metoclopramide (Unverified Allergy, Unknown, "CAUSES PT TO LOSE CONTROL OF MUSCLES", 01/25/19) Patient Home Medication List Home Medication List Reviewed: Yes Albuterol Sulfate (Proair Hfa) 1 Puff Puff, 2 PUFF IH Q4H PRN for WHEEZING, (Reported) Entered as Reported by: MADDY DANIELLE on 02/20/19 1051 Aspirin (Aspirin EC) 81 Mg Tablet.dr, 81 MG PO DAILY, (Reported) Entered as Reported by: DC CANSECO on 11/04/21 0835 Atenolol (Atenolol) 50 Mg Tablet, 50 MG PO BID, (Reported) Entered as Reported by: DC CANSECO on 11/04/21 0835 Atorvastatin Calcium (Atorvastatin Calcium) 10 Mg Tablet, 10 MG PO HS, (Reported) Entered as Reported by: DC CANSECO on 11/04/21 0835 Buspirone HCl (Buspirone HCl) 15 Mg Tablet, 15 MG PO BID, (Reported) Entered as Reported by: DC CANSECO on 11/04/21 0835 Cyclobenzaprine HCl (Cyclobenzaprine HCl) 10 Mg Tablet, 10 MG PO TID PRN for PAIN-MODERATE (5-7), (Reported) Entered as Reported by: MEGHAN LEES on 06/28/21 1302 Estradiol (Estradiol Tablet) 1 Mg Tablet, 1 MG PO DAILY, (Reported) Entered as Reported by: MADDY DANIELLE on 05/20/19 1327 Ethosuximide (Ethosuximide) 250 Mg Capsule, 250 MG PO HS, (Reported) Entered as Reported by: MADDY DANIELLE on 04/12/16 0942 Fluoxetine HCl (Fluoxetine HCl) 40 Mg Capsule, 80 MG PO DAILY, (Reported) Entered as Reported by: LILIBETH DOUGLAS on 01/26/19 0349 Fluticasone/Salmeterol (Advair 250-50 Diskus) 1 Each Blst.w.dev, 1 EACH IH BID, (Reported) Entered as Reported by: MADDY DANIELLE on 02/20/19 1051 Hydrochlorothiazide (Hydrochlorothiazide) 12.5 Mg Tablet, 12.5 MG PO DAILY, (Reported) Entered as Reported by: DC CANSECO on 11/04/21 0835 Hydroxyzine HCl (Hydroxyzine HCl) 25 Mg Tablet, 25 MG PO TID PRN for ANXIETY, (Reported) Entered as Reported by: DC CANSECO on 11/04/21 0835 Isosorbide Mononitrate (Isosorbide Mononitrate ER) 60 Mg Tab, 60 MG PO DAILY Prescribed by: RAHEEM LI JR, MD on 11/04/21 1003 Lisinopril (Lisinopril) 20 Mg Tablet, 20 MG PO BID, (Reported) Entered as Reported by: MADDY DANIELLE on 05/20/19 1324 Meloxicam (Meloxicam) 15 Mg Tablet, 15 MG PO DAILY, (Reported) Entered as Reported by: MEGHAN LEES on 06/28/21 1302 Nitroglycerin (Nitroglycerin) 0.4 Mg Tab.subl, 0.4 MG SL NEEDED PRN for CHEST PAIN (ANGINA) Prescribed by: RAHEEM LI JR, MD on 11/04/21 1021 Omeprazole (Omeprazole) 40 Mg Capsule.dr, 40 MG PO DAILY, (Reported) Entered as Reported by: LILIBETH DOUGLAS on 01/26/19 0349 Pregabalin (Pregabalin) 150 Mg Capsule, 150 MG PO TID, (Reported) Entered as Reported by: DC CANSECO on 11/04/21 0835 Review of Systems Review of Systems Constitutional: no symptoms reported EENTM: no symptoms reported Respiratory: no symptoms reported Cardiovascular: chest pain Gastrointestinal: no symptoms reported Genitourinary: no symptoms reported Musculoskeletal: no symptoms reported Skin: no symptoms reported Psychiatric/Neurological: No Symptoms Reported Hematologic/Lymphatic: No Symptoms Reported Immunological/Allergic: no symptoms reported Past Qhhoaex-Xudipq-Nljpuo Hx Immunizations Up To Date Tetanus Booster (TDap): Unknown Seasonal Allergies Seasonal Allergies: Yes Past Medical History Surgery/Hospitalization HX: HYST, [facility] DANIA, x 3, TUBAL, NARCOLEPSY, ANXIETY, COPD, ASTHMA, HTN, MORBID OBESITY Surgeries: Yes (dental extractions, dxls, bmt, 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, LEFT EAR) Section, Ear Surgery, Gallbladder, Hysterectomy, 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 Respiratory: Yes Asthma, COPD Currently Using CPAP: No Currently Using BIPAP: No Cardiac: Yes Heart Murmur, Hypertension, Irregular Heartbeat Neurological: Yes Headaches /Migraines, Seizure Disorder 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 Disorders: Yes Female 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 Disorders: 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, 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 Sexually Transmitted Disease: No Genitourinary: Yes Kidney Stones Gastrointestinal: Yes Colitis, Gastroesophageal Reflux, Diverticulosis, Polyps, Ulcer Musculoskeletal: Yes (spina bifida) Arthritis, Scoliosis, Chronic Back Pain Endocrine: No HEENT: Yes Chronic Ear Infection Hearing Impairment: Denies, Hard of Hearing Cancer: No Psychosocial: Yes Anxiety, Depression Integumentary: No Blood Disorders: No Family Medical History No Pertinent Family Hx, GI Disease Physical Exam Vital Signs Vital Signs - First Documented 12/28/21 02:07 Temp 35.9 Pulse 75 Resp 20 B/P (MAP) 178/81 (113) Pulse Ox 100 Capillary Refill : Height, Weight, BMI Height: 5'0" Weight: 235lbs. 0oz. [id number]; 48.05 BMI Method:Stated General Appearance: Mild Distress, Obese HEENT: PERRL/EOMI Neck: Full Range of Motion, Normal Inspection, Non Tender, Supple Respiratory: Lungs Clear, Normal Breath Sounds, No Accessory Muscle Use, No Respiratory Distress, Other (reproducible tenderness at the 10th, 11th, and 12th ribs at the costochondral junction) Cardiovascular: Regular Rate, Rhythm, No Edema, No Murmur Gastrointestinal: Normal Bowel Sounds, Non Tender, Soft Neurologic/Psychiatric: Alert, Oriented x3, No Motor/Sensory Deficits Skin: Normal Color Progress/Results/Core Measures Suspected Sepsis SIRS Temperature: Pulse: Respiratory Rate: Laboratory Tests 12/28/21 02:15: White Blood Count 13.5H Blood Pressure / Mean: Laboratory Tests 12/28/21 02:15: Creatinine 0.92, Platelet Count 363, Total Bilirubin 0.3 Results/Orders Lab Results Laboratory Tests Test 12/28/21 02:15 12/28/21 02:40 12/28/21 03:20 Range/Units White Blood Count 13.5 H 4.3-11.0 10^3/uL Red Blood Count 3.87 3.80-5.11 10^6/uL Hemoglobin 10.9 L 11.5-16.0 g/dL Hematocrit 33 L 35-52 % Mean Corpuscular Volume 85 80-99 fL Mean Corpuscular Hemoglobin 28 25-34 pg Mean Corpuscular Hemoglobin Concent 33 32-36 g/dL Red Cell Distribution Width 16.2 H 10.0-14.5 % Platelet Count 363 130-400 10^3/uL Mean Platelet Volume 9.7 9.0-12.2 fL Immature Granulocyte % (Auto) 0 % Neutrophils (%) (Auto) 57 42-75 % Lymphocytes (%) (Auto) 36 12-44 % Monocytes (%) (Auto) 5 0-12 % Eosinophils (%) (Auto) 2 0-10 % Basophils (%) (Auto) 1 0-10 % Neutrophils # (Auto) 7.7 1.8-7.8 10^3/uL Lymphocytes # (Auto) 4.8 H 1.0-4.0 10^3/uL Monocytes # (Auto) 0.6 0.0-1.0 10^3/uL Eosinophils # (Auto) 0.2 0.0-0.3 10^3/uL Basophils # (Auto) 0.1 0.0-0.1 10^3/uL Immature Granulocyte # (Auto) 0.1 0.0-0.1 10^3/uL Neutrophils % (Manual) 51 % Lymphocytes % (Manual) 31 % Monocytes % (Manual) 4 % Eosinophils % (Manual) 2 % Band Neutrophils 5 % Atypical Lymphocytes 1 % Reactive Lymphocytes 6 % Platelet Estimate NORMAL Anisocytosis SLIGHT Stomatocytes SLIGHT Sodium Level 138 135-145 MMOL/L Potassium Level 3.6 3.6-5.0 MMOL/L Chloride Level 102 98-107 MMOL/L Carbon Dioxide Level 26 21-32 MMOL/L Anion Gap 10 5-14 MMOL/L Blood Urea Nitrogen 21 H 7-18 MG/DL Creatinine 0.92 0.60-1.30 MG/DL Estimat Glomerular Filtration Rate 80 BUN/Creatinine Ratio 23 Glucose Level 90 70-105 MG/DL Calcium Level 8.9 8.5-10.1 MG/DL Corrected Calcium 8.8 8.5-10.1 MG/DL Magnesium Level 1.5 L 1.6-2.4 MG/DL Total Bilirubin 0.3 0.1-1.0 MG/DL Aspartate Amino Transf (AST/SGOT) 56 H 5-34 U/L Alanine Aminotransferase (ALT/SGPT) 31 0-55 U/L Alkaline Phosphatase 151 H 40-136 U/L Troponin I < 0.30 <0.30 NG/ML Total Protein 7.4 6.4-8.2 GM/DL Albumin 4.1 3.2-4.5 GM/DL Serum Alcohol < 10 <10 MG/DL Urine Color YELLOW Urine Clarity CLEAR Urine pH 6.0 5-9 Urine Specific [place] 1.025 H 1.016-1.022 Urine Protein NEGATIVE NEGATIVE Urine Glucose (UA) NEGATIVE NEGATIVE Urine Ketones NEGATIVE NEGATIVE Urine Nitrite NEGATIVE NEGATIVE Urine Bilirubin NEGATIVE NEGATIVE Urine Urobilinogen 0.2 < = 1.0 MG/DL Urine Leukocyte Esterase NEGATIVE NEGATIVE Urine RBC (Auto) NEGATIVE NEGATIVE Urine RBC 0-2 /HPF Urine WBC 0-2 /HPF Urine Squamous Epithelial Cells 25-50 H /HPF Urine Crystals NONE /LPF Urine Bacteria TRACE /HPF Urine Casts NONE /LPF Urine Mucus NEGATIVE /LPF Urine Culture Indicated NO Urine Opiates Screen NEGATIVE NEGATIVE Urine Oxycodone Screen NEGATIVE NEGATIVE Urine Methadone Screen NEGATIVE NEGATIVE Urine Propoxyphene Screen NEGATIVE NEGATIVE Urine Barbiturates Screen NEGATIVE NEGATIVE Ur Tricyclic Antidepressants Screen NEGATIVE NEGATIVE Urine Phencyclidine Screen NEGATIVE NEGATIVE Urine Amphetamines Screen NEGATIVE NEGATIVE Urine Methamphetamines Screen NEGATIVE NEGATIVE Urine Benzodiazepines Screen POSITIVE H NEGATIVE Urine Cocaine Screen NEGATIVE NEGATIVE Urine Cannabinoids Screen NEGATIVE NEGATIVE My Orders Orders - VIANEY ANGLIN MD Alcohol (12/28/21 02:16) Cbc With Automated Diff (12/28/21 02:16) Comprehensive Metabolic Panel (12/28/21 02:16) Drug Screen Stat (Urine) (12/28/21 02:16) Magnesium (12/28/21 02:16) Ua Culture If Indicated (12/28/21 02:16) Troponin I Fs (12/28/21 02:16) Ekg Tracing (12/28/21 02:16) O2 (12/28/21 02:16) Monitor-Rhythm Ecg Trace Only (12/28/21 02:16) Aspirin Chewable Tablet (Baby Aspirin Ch (12/28/21 02:30) Ed Iv/Invasive Line Start (12/28/21 02:16) Famotidine Injection (Pepcid Injection) (12/28/21 02:30) Antacid Suspension (Mylanta Suspension (12/28/21 02:30) Lidocaine 2% Viscous 15 Ml (Xylocaine Vi (12/28/21 02:30) Manual Differential (12/28/21 02:15) Morphine Injection (Morphine Injection (12/28/21 02:44) Ondansetron Injection (Zofran Injectio (12/28/21 03:00) Ondansetron Injection (Zofran Injectio (12/28/21 02:52) Troponin I Fs (12/28/21 03:14) Ekg Tracing (12/28/21 03:14) Nitroglycerin 0.4 Mg Btl 25's (Nitrostat (12/28/21 03:30) Medications Given in ED Current Medications Medications Dose Ordered Sig/Brissa Route Start Time Stop Time Status Last Admin Dose Admin Al Hydrox/Mg Hydrox/Simethicone 30 ml ONCE ONCE PO 12/28/21 02:30 12/28/21 02:31 DC 12/28/21 02:30 30 ML Aspirin 324 mg ONCE ONCE PO 12/28/21 02:30 12/28/21 02:31 DC 12/28/21 02:30 324 MG Famotidine 20 mg ONCE ONCE IVP 12/28/21 02:30 12/28/21 02:31 DC 12/28/21 02:30 20 MG Lidocaine HCl 5 ml ONCE ONCE PO 12/28/21 02:30 12/28/21 02:31 DC 12/28/21 02:30 5 ML Nitroglycerin 0.4 mg UD PRN SL 12/28/21 03:30 12/28/21 03:26 0.4 MG Ondansetron HCl 4 mg ONCE ONCE IVP 12/28/21 03:00 12/28/21 03:01 DC 12/28/21 02:55 4 MG Vital Signs/I&O 12/28/21 02:07 Temp 35.9 Pulse 75 Resp 20 B/P (MAP) 178/81 (113) Pulse Ox 100 Capillary Refill : Progress Note : Progress Note 1. CHEST PAIN: - CXR - Troponin x2/ EKG x2: non-ischemic - Reviewed prior notes, and saw pt had a cardiac cath in October 2021, had an EF of 69%, and cardiology note states: "The patient will be continued on aspirin and beta-ishan. I will increase the long-acting nitrates. If she has ongoing chest discomfort, we may need to consider complex bifurcation intervention to the left anterior descending coronary artery and first diagonal branch." - UA/ UDS unremarkable - ASA 324mg - GI cocktail - Morphine 2mg iv - Nitro sublingual - Protonix iv -Patient appears to have a costochondritis and GERD picture, however based on cardiology notes from October 2021, it would be in the patient's best interest to admit her to observation for telemetry monitoring, serial troponins and EKGs, and cardiology consult in the morning. - Discussed with hospitlaist, and agrees with plan Diagnostic Imaging Diagonstic Imaging: Xray Departure Communication (Admissions) Time/Spoke to Admitting Phy: 03:[address] Rodriguez and will admit to Obs for telemetry and Cardiology consult Impression Primary Impression: Chest pain Qualified Codes: R07.9 - Chest pain, unspecified Additional Impression: GERD (gastroesophageal reflux disease) Qualified Codes: K21.9 - Gastro-esophageal reflux disease without esophagitis Disposition: 30 STILL A PATIENT Condition: Stable Admissions Decision to Admit Reason: Admit from ER (General) Decision to Admit/Date: Dec 28, 2021 Time/Decision to Admit Time: 03:00 Transfer Method of Transfer: EMS Departure-Patient Inst. Referrals: MAYKEL CUMMINS APRN (PCP) Primary Care Physician [facility] (Family) Primary Care Physician VIANEY ANGLIN MD Dec 28, 2021 02:11
[2021-12-28 02:22] LABS: BASOPHILS # (AUTO) 0.1 10^3/uL (0.0-0.1); BASOPHILS % (AUTO) 1 % (0-10); EOSINOPHILS # (AUTO) 0.2 10^3/uL (0.0-0.3); EOSINOPHILS % (AUTO) 2 % (0-10); HEMATOCRIT 33 % (35-52); HEMOGLOBIN 10.9 g/dL (11.5-16.0); LYMPHOCYTES # (AUTO) 4.8 10^3/uL (1.0-4.0); LYMPHOCYTES % (AUTO) 36 % (12-44); MEAN CORPUSCULAR HEMOGLOBIN 28 pg (25-34); MEAN CORPUSCULAR HGB CONC 33 g/dL (32-36); MEAN CORPUSCULAR VOLUME 85 fL (80-99); MEAN PLATELET VOLUME 9.7 fL (9.0-12.2); MONOCYTES # (AUTO) 0.6 10^3/uL (0.0-1.0); MONOCYTES % (AUTO) 5 % (0-12); NEUTROPHILS # (AUTO) 7.7 10^3/uL (1.8-7.8); NEUTROPHILS % (AUTO) 57 % (42-75); PLATELET COUNT 363 10^3/uL (130-400); WHITE BLOOD COUNT 13.5 10^3/uL (4.3-11.0)
[2021-12-28] MEDS ORDERED: ANTACID SUSP 30 ML UDC (MYLANTA) PO ONE (02:30)
[2021-12-28] MEDS ORDERED: FAMOTIDINE 20MG/2ML IV (PEPCID) IVP ONE (02:30)
[2021-12-28] MEDS ORDERED: ASPIRIN 81 MG CHEW (CHILDREN'S ASA) PO ONE (02:30)
[2021-12-28] MEDS ORDERED: LIDOCAINE 2% VISCOUS 15 ML UDC PO ONE (02:30)
[2021-12-28 02:44] LABS: BILIRUBIN,URINE NEGATIVE (NEGATIVE); CLARITY,URINE CLEAR; COLOR,URINE YELLOW; GLUCOSE, URINE (UA) NEGATIVE (NEGATIVE); KETONES,URINE NEGATIVE (NEGATIVE); LEUKOCYTE ESTERASE ,URINE NEGATIVE (NEGATIVE); NITRITE,URINE NEGATIVE (NEGATIVE); PROTEIN,URINE NEGATIVE (NEGATIVE)
[2021-12-28] MEDS ORDERED: morphine INJ 10 MG/ML 1ML (SYR OR VIAL) IVP STA (02:44)
[2021-12-28] MEDS ORDERED: ONDANSETRON 4 MG/2 ML (SDV) Z0FRAN ONE (02:52)
[2021-12-28 02:58] LABS: BUN/CREATININE RATIO 23; CALCIUM 8.9 MG/DL (8.5-10.1); CARBON DIOXIDE 26 MMOL/L (21-32); CHLORIDE 102 MMOL/L (98-107); CREATININE SERUM 0.92 MG/DL (0.60-1.30); GFR ESTIMATED 80; GLUCOSE 90 MG/DL (70-105); MAGNESIUM 1.5 MG/DL (1.6-2.4); POTASSIUM 3.6 MMOL/L (3.6-5.0); SODIUM 138 MMOL/L (135-145)
[2021-12-28 02:59] LABS: ALANINE AMINOTRANSFERASE 31 U/L (0-55); ALBUMIN 4.1 GM/DL (3.2-4.5); ALKALINE PHOSPHATASE 151 U/L (40-136); BILIRUBIN,TOTAL 0.3 MG/DL (0.1-1.0); TOTAL PROTEIN 7.4 GM/DL (6.4-8.2)
[2021-12-28 03:00] LABS: AMPHETAMINE SCREEN, URINE NEGATIVE (NEGATIVE); BARBITURATE SCREEN URINE NEGATIVE (NEGATIVE); BENZODIAZEPINES SCREEN URINE POSITIVE (NEGATIVE); CANNABINOID SCREEN, URINE NEGATIVE (NEGATIVE); COCAINE SCREEN URINE NEGATIVE (NEGATIVE); METHADONE STAT NEGATIVE (NEGATIVE); OPIATE SCREEN URINE NEGATIVE (NEGATIVE); OXYCODONE STAT NEGATIVE (NEGATIVE); PROPOXYPHENE STAT NEGATIVE (NEGATIVE); TRICYCLIC ANTIDEPRESSANTS SCRE NEGATIVE (NEGATIVE)
[2021-12-28] MEDS ORDERED: ONDANSETRON 4 MG/2 ML (SDV) Z0FRAN IVP ONE (03:00)
[2021-12-28 03:01] LABS: BAND NEUTROPHILS 5 %; EOSINOPHILS % (MANUAL) 2 %; LYMPHOCYTES % (MANUAL) 31 %; MONOCYTES % (MANUAL) 4 %; NEUTROPHILS % (MANUAL) 51 %; REACTIVE LYMPHOCYTES 6 %
[2021-12-28 03:02] LABS: ANISOCYTOSIS SLIGHT; ATYPICAL LYMPHOCYTES 1 %; PLATELET ESTIMATE NORMAL; STOMATOCYTES SLIGHT
[2021-12-28 03:03] LABS: BACTERIA,URINE TRACE /HPF; RBC,URINE 0-2 /HPF; SQUAMOUS EPITHELIAL CELL,UR 25-50 /HPF; WBC,URINE 0-2 /HPF
[2021-12-28] MEDS ORDERED: NITROGLYCERIN 0.4 MG SL TABS BTL 25'S SL PRN ×3 (03:30→10:45)
[2021-12-28] MEDS: morphine INJ 10 MG/ML 1ML (SYR OR VIAL) IVP PRN ×2 (04:13→07:03)
[2021-12-28 09:30] VITALS: BP 141/87
[2021-12-28] MEDS ORDERED: morphine INJ 4 MG/ML 1 ML (VIAL/SYRINGE) IVP PRN (09:30)
[2021-12-28] MEDS ORDERED: LORazepam 0.5 MG (ATIVAN) TABLET PO PRN (09:30)
[2021-12-28] MEDS ORDERED: NS IV 1000 ML 1,000 ML IV SCH (09:30)
[2021-12-28] MEDS ORDERED: MILK OF MAGNESIA 400 MG/5 ML 30 ML UDC PO PRN (10:00)
[2021-12-28 10:12] VITALS: BP 141/87
[2021-12-28] MEDS ORDERED: ISOS60TA63 PO (10:42)
[2021-12-28] MEDS ORDERED: NITR0.4T39 SL (10:42)
[2021-12-28] MEDS ORDERED: TIZA-186 PO (10:42)
[2021-12-28] MEDS ORDERED: DIPH25TA65 PO (10:45)
[2021-12-28] MEDS ORDERED: NON-FORMULARY MEDICATION 1 EA EA (Hydroxyzine HCl 25 MG) PO PRN (10:45)
[2021-12-28] MEDS ORDERED: ACET-2267 PO (10:45)
--- NOTE | 2021-12-28 10:46 | Consultation-Cardiology ---
HPI-Cardiology Cardiology Consultation: Date of Consultation 12/28/21 Date of Admission 12/28/21 Attending Physician Gertrude Lam Aprn Admitting Physician Admitting Physician: Jud Rodriguez MD Attending Physician: Jud Rodriguez MD Consulting Physician RAHEEM LI JR, MD HPI: Time Seen by a Provider: 10:46 Chief Complaint: REASON FOR CONSULTATION: Chest pain. I had the pleasure of seeing Jazzy on the medical/surgical unit at [facility] in [place], [place] today. She is known to me from a previous visit in the hospital as well as the office. She was doing well until last evening when she got up to use the bathroom around midnight. When she went back to bed, she had substernal chest tightness. She took 1 sublingual nitroglycerin and had some relief of the chest discomfort but this came back within a short period of time. She ended up taking 2 more nitroglycerin and still had some chest pain so she drove to the emergency room in [place]. In the emergency room, she was given additional nitroglycerin which did not help her chest pain. She was given a GI cocktail and morphine and these also did not help her chest pain. She was subsequently transferred to our hospital for further treatment and evaluation. When I saw her, she still had some mild residual chest discomfort. She has been having some nausea off and on but denies vomiting. She denies any abdominal pain. She has had some intermittent palpitations with the sensation of a fluttering in her chest that have been happening on and off most days of the week. She denies associated symptoms. This has been going on for a while. She denies dyspnea, paroxysmal nocturnal dyspnea, or orthopnea. She has had some lightheaded spells but denies any syncope. She denies any lower extremity edema. Because of her chest discomfort, a cardiology consultation was requested. Certain portions of this document may have been dictated utilizing voice recognition technology. Inherent to this technology, typographical and grammatical errors may exist. As much as I am diligent to identify and correct these mistakes, some errors may remain in the document. Review of Systems-Cardiology Review of Systems Other comments Review of 10 organ systems is as per the history of present illness, otherwise negative. [id number]-[id number]-[id number] Hx Patient Social History Smoking Status: Current Everyday Smoker 2nd Hand Smoke Exposure: No Have you traveled recently?: No Alcohol Use?: No Pt feels they are or have been: No Tobacco type used: Cigarettes Immunizations Up To Date Tetanus Booster (TDap): Unknown Past Medical History PMH As described under Assessment. Family Medical History Family Medical History: The patient does not know of any family history of premature coronary artery disease in first-degree relatives. Allergies and Home Medications Allergies Coded Allergies: gabapentin (Verified Allergy, Unknown, 01/25/19) metoclopramide (Unverified Allergy, Unknown, "CAUSES PT TO LOSE CONTROL OF MUSCLES", 01/25/19) Patient Home Medication List Home Medication List Reviewed: Yes Acetaminophen (Tylenol Extra Strength) 500 Mg Tablet, 1,000 MG PO Q8H PRN for PAIN-MILD (1-4), (Reported) Entered as Reported by: KEILY JONES on 12/28/211044 Last Action: Continued Aspirin (Aspirin EC) 81 Mg Tablet.dr, 81 MG PO DAILY, (Reported) Entered as Reported by: DC CANSECO on 11/04/21834 Last Action: Continued Atenolol (Atenolol) 50 Mg Tablet, 50 MG PO BID, (Reported) Entered as Reported by: DC CANSECO on 11/04/21834 Last Action: Converted Atorvastatin Calcium (Atorvastatin Calcium) 10 Mg Tablet, 10 MG PO HS, (Reported) Entered as Reported by: DC CANSECO on 11/04/21834 Last Action: Continued Buspirone HCl (Buspirone HCl) 15 Mg Tablet, 15 MG PO TID, (Reported) Entered as Reported by: DC CANSECO on 11/04/21834 Last Action: Continued Diphenhydramine HCl (Benadryl Allergy) 25 Mg Tablet, 50 MG PO BID, (Reported) Entered as Reported by: KEILY JONES on 12/28/211044 Last Action: Continued Estradiol (Estradiol Tablet) 1 Mg Tablet, 1 MG PO DAILY, (Reported) Entered as Reported by: MADDY DANIELLE on 05/20/19 1327 Last Action: Reviewed Ethosuximide (Ethosuximide) 250 Mg Capsule, 250 MG PO HS, (Reported) Entered as Reported by: MADDY DANIELLE on 04/12/16 0942 Last Action: Converted Fluoxetine HCl (Fluoxetine HCl) 40 Mg Capsule, 80 MG PO DAILY, (Reported) Entered as Reported by: LILIBETH DOUGLAS on 01/26/19348 Last Action: Converted Hydrochlorothiazide (Hydrochlorothiazide) 12.5 Mg Tablet, 12.5 MG PO DAILY, (Reported) Entered as Reported by: DC CANSECO on 11/04/21834 Last Action: Converted Hydroxyzine HCl (Hydroxyzine HCl) 25 Mg Tablet, 25 MG PO TID PRN for ANXIETY, (Reported) Entered as Reported by: DC CANSECO on 11/04/21834 Last Action: Converted Isosorbide Mononitrate (Isosorbide Mononitrate ER) 60 Mg Tab, 60 MG PO DAILY, (Reported) Entered as Reported by: KEILY JONES on 12/28/211041 Last Action: Continued Lisinopril (Lisinopril) 20 Mg Tablet, 20 MG PO BID, (Reported) Entered as Reported by: MADDY DANIELLE on 05/20/19 1324 Last Action: Continued Meloxicam (Meloxicam) 15 Mg Tablet, 15 MG PO DAILY, (Reported) Entered as Reported by: MEGHAN LEES on 06/28/21 1302 Last Action: Reviewed Nitroglycerin (Nitroglycerin) 0.4 Mg Tab.subl, 0.4 MG SL UD PRN for CHEST PAIN, (Reported) Entered as Reported by: KEILY JONES on 12/28/211041 Last Action: Continued Omeprazole (Omeprazole) 40 Mg Capsule.dr, 40 MG PO DAILY, (Reported) Entered as Reported by: LILIBETH DOUGLAS on 01/26/19348 Last Action: Converted Pregabalin (Pregabalin) 150 Mg Capsule, 150 MG PO TID, (Reported) Entered as Reported by: DC CANSECO on 11/04/21834 Last Action: Continued Tizanidine HCl (Tizanidine HCl) 4 Mg Tablet, 4 MG PO TID PRN for MUSCLE SPASMS, (Reported) Entered as Reported by: KEILY JONES on 12/28/211041 Last Action: Continued Discontinued Medications Albuterol Sulfate (Proair Hfa) 1 Puff Puff, 2 PUFF IH Q4H PRN for WHEEZING, (Reported) Discontinued Reason: No Longer Taking Entered as Reported by: MADDY DANIELLE on 02/20/19 1051 Last Action: Discontinued Cyclobenzaprine HCl (Cyclobenzaprine HCl) 10 Mg Tablet, 10 MG PO TID PRN for PAIN-MODERATE (5-7), (Reported) Discontinued Reason: No Longer Taking Entered as Reported by: MEGHAN LEES on 06/28/21 1302 Last Action: Discontinued Fluticasone/Salmeterol (Advair 250-50 Diskus) 1 Each Blst.w.dev, 1 EACH IH BID, (Reported) Discontinued Reason: No Longer Taking Entered as Reported by: MADDY DANIELLE on 02/20/19 1051 Last Action: Discontinued Isosorbide Mononitrate (Isosorbide Mononitrate ER) 60 Mg Tab, 60 MG PO DAILY Discontinued Reason: No Longer Taking Prescribed by: RAHEEM LI JR, MD on 11/04/21 1003 Last Action: Discontinued Nitroglycerin (Nitroglycerin) 0.4 Mg Tab.subl, 0.4 MG SL NEEDED PRN for CHEST PAIN (ANGINA) Discontinued Reason: No Longer Taking Prescribed by: RAHEEM LI JR, MD on 11/04/21 1021 Last Action: Discontinued Exam Vital Signs Vital Signs Date Time Temp Pulse Resp B/P (MAP) Pulse Ox O2 Delivery O2 Flow Rate FiO2 12/28/21 12:25 69 12/28/21 10:12 94 Room Air 12/28/21 10:12 35.9 21 12/28/21 09:30 20 141/87 (105) Physical Exam General: Alert. No acute distress. Well nourished and appears stated age. She is obese. Eye: Extraocular movements are intact. Conjunctivae are clear. There are no xanthelasma. HENT: Normocephalic. Atraumatic. Carotid pulsations 2/2 without bruits. Neck: Jugular venous pressure does not appear elevated. No thyromegaly appreciated. Respiratory: Lungs are clear to auscultation. Respirations are non-labored. Breath sounds are equal. Symmetrical chest wall expansion. Cardiovascular: Normal rate. Regular rhythm. No murmur. No gallop. Point of maximal impulse is not appear displaced. Good pulses equal in all extremities. No edema. Gastrointestinal: Soft. Normal bowel sounds. Skin: Skin turgor is normal. There is no pallor. Musculoskeletal: No kyphosis or scoliosis appreciated. Neurologic: Alert and oriented to person, place, time. Cranial nerves 3-12 appear grossly intact. The patient has good motor tone strength in the upper and lower extremities bilaterally. Psychiatric: Cooperative. Appropriate mood & affect. Labs Laboratory Tests Test 12/28/21 02:15 12/28/21 02:40 12/28/21 03:20 12/28/21 09:55 Range/Units White Blood Count 13.5 H 4.3-11.0 10^3/uL Red Blood Count 3.87 3.80-5.11 10^6/uL Hemoglobin 10.9 L 11.5-16.0 g/dL Hematocrit 33 L 35-52 % Mean Corpuscular Volume 85 80-99 fL Mean Corpuscular Hemoglobin 28 25-34 pg Mean Corpuscular Hemoglobin Concent 33 32-36 g/dL Red Cell Distribution Width 16.2 H 10.0-14.5 % Platelet Count 363 130-400 10^3/uL Mean Platelet Volume 9.7 9.0-12.2 fL Immature Granulocyte % (Auto) 0 % Neutrophils (%) (Auto) 57 42-75 % Lymphocytes (%) (Auto) 36 12-44 % Monocytes (%) (Auto) 5 0-12 % Eosinophils (%) (Auto) 2 0-10 % Basophils (%) (Auto) 1 0-10 % Neutrophils # (Auto) 7.7 1.8-7.8 10^3/uL Lymphocytes # (Auto) 4.8 H 1.0-4.0 10^3/uL Monocytes # (Auto) 0.6 0.0-1.0 10^3/uL Eosinophils # (Auto) 0.2 0.0-0.3 10^3/uL Basophils # (Auto) 0.1 0.0-0.1 10^3/uL Immature Granulocyte # (Auto) 0.1 0.0-0.1 10^3/uL Neutrophils % (Manual) 51 % Lymphocytes % (Manual) 31 % Monocytes % (Manual) 4 % Eosinophils % (Manual) 2 % Band Neutrophils 5 % Atypical Lymphocytes 1 % Reactive Lymphocytes 6 % Platelet Estimate NORMAL Anisocytosis SLIGHT Stomatocytes SLIGHT Sodium Level 138 135-145 MMOL/L Potassium Level 3.6 3.6-5.0 MMOL/L Chloride Level 102 98-107 MMOL/L Carbon Dioxide Level 26 21-32 MMOL/L Anion Gap 10 5-14 MMOL/L Blood Urea Nitrogen 21 H 7-18 MG/DL Creatinine 0.92 0.60-1.30 MG/DL Estimat Glomerular Filtration Rate 80 BUN/Creatinine Ratio 23 Glucose Level 90 70-105 MG/DL Calcium Level 8.9 8.5-10.1 MG/DL Corrected Calcium 8.8 8.5-10.1 MG/DL Magnesium Level 1.5 L 1.6-2.4 MG/DL Total Bilirubin 0.3 0.1-1.0 MG/DL Aspartate Amino Transf (AST/SGOT) 56 H 5-34 U/L Alanine Aminotransferase (ALT/SGPT) 31 0-55 U/L Alkaline Phosphatase 151 H 40-136 U/L Troponin I < 0.30 < 0.30 < 0.028 <0.028 NG/ML Total Protein 7.4 6.4-8.2 GM/DL Albumin 4.1 3.2-4.5 GM/DL Serum Alcohol < 10 <10 MG/DL Urine Color YELLOW Urine Clarity CLEAR Urine pH 6.0 5-9 Urine Specific Mckean 1.025 H 1.016-1.022 Urine Protein NEGATIVE NEGATIVE Urine Glucose (UA) NEGATIVE NEGATIVE Urine Ketones NEGATIVE NEGATIVE Urine Nitrite NEGATIVE NEGATIVE Urine Bilirubin NEGATIVE NEGATIVE Urine Urobilinogen 0.2 < = 1.0 MG/DL Urine Leukocyte Esterase NEGATIVE NEGATIVE Urine RBC (Auto) NEGATIVE NEGATIVE Urine RBC 0-2 /HPF Urine WBC 0-2 /HPF Urine Squamous Epithelial Cells 25-50 H /HPF Urine Crystals NONE /LPF Urine Bacteria TRACE /HPF Urine Casts NONE /LPF Urine Mucus NEGATIVE /LPF Urine Culture Indicated NO Urine Opiates Screen NEGATIVE NEGATIVE Urine Oxycodone Screen NEGATIVE NEGATIVE Urine Methadone Screen NEGATIVE NEGATIVE Urine Propoxyphene Screen NEGATIVE NEGATIVE Urine Barbiturates Screen NEGATIVE NEGATIVE Ur Tricyclic Antidepressants Screen NEGATIVE NEGATIVE Urine Phencyclidine Screen NEGATIVE NEGATIVE Urine Amphetamines Screen NEGATIVE NEGATIVE Urine Methamphetamines Screen NEGATIVE NEGATIVE Urine Benzodiazepines Screen POSITIVE H NEGATIVE Urine Cocaine Screen NEGATIVE NEGATIVE Urine Cannabinoids Screen NEGATIVE NEGATIVE Radiology CARDIAC CATHETERIZATION (11/04/2021): 1. Systemic hypertension with mildly elevated left ventricular end-diastolic pressure. 2. Mild to moderate two-vessel coronary artery disease involving the mid left anterior descending and proximal right coronary artery as outlined above. 3. The patient is known to have normal left ventricular systolic function with an estimated ejection fraction of 69% by nuclear stress test performed on 09/30/2021. 4. The patient will be continued on aspirin and beta-ishan. I will increase the long-acting nitrates. If she has ongoing chest discomfort, we may need to consider complex bifurcation intervention to the left anterior descending coronary artery and first diagonal branch. ECHOCARDIOGRAM (10/07/2021): 1. This is a technically difficult study due to poor image quality secondary to patient's body habitus. 2. Normal left ventricular chamber size with moderate concentric hypertrophy. Normal left ventricular systolic function with an estimated ejection fraction of 55-60%. Regional wall motion abnormalities cannot be excluded due to poor endocardial definition. 3. The left ventricular diastolic parameters are normal. 4. The estimated pulmonary artery systolic pressure is 41 mmHg assuming a right atrial pressure of 5 mmHg. REGADENOSON NUCLEAR STRESS TEST (09/30/2021): 1. Normal heart rate and blood pressure response to regadenoson with resting tachycardia. 2. There was no chest discomfort, arrhythmias, or electrocardiogram changes during the test. 3. There was a moderate sized, moderate intensity, predominantly reversible apical defect with a moderate amount of inducible ischemia with a summed stress score of 10 and a summed difference score of 8. 4. There was normal wall motion in all segments with a calculated ejection fraction of 69%. 5. This is an abnormal result representing a moderate risk for possible future coronary ischemic events. LABS (09/16/2021): Glucose 109. BUN 11. Creatinine 0.8. GFR 92. Sodium 139. Potassium 4.2. Total bilirubin 0.3. Alkaline phosphatase 136 (high). AST 28. ALT 20. Total cholesterol 224. Triglycerides 170. HDL 38. LDL 155. ELECTROCARDIOGRAM (09/15/2021): Sinus rhythm with left atrial abnormality, nonspecific intraventricular conduction delay and nonspecific anterior T wave changes. ECG Impression ECG Comment She had 2 electrocardiograms earlier this morning in [place] and both showed sinus rhythm with otherwise normal tracing. Diagnosis/Problems Diagnosis/Problems (1) Coronary artery disease with unstable angina pectoris Assessment & Plan: She is having symptoms concerning for unstable angina however, she has had 3 undetectable troponin levels and ischemic changes on her electrocardiogram. She is on beta-ishan and long-acting nitrates at home. We will add ranolazine. If we get her symptoms under control with medical therapy, she can be discharged perhaps later today with the current combination of medications. I will start with the lower dose of ranolazine if this does not help, then we can always titrate this up to the higher dose. If we cannot get her symptoms under control with medical therapy, then we may need to consider complicated percutaneous intervention to the left anterior descending and a diagonal branch. (2) Primary hypertension Assessment & Plan: Continue beta-ishan. (3) Mixed hyperlipidemia Assessment & Plan: Continue statin medication. (4) Gastroesophageal reflux disease with esophagitis Assessment & Plan: Unclear whether or not this could be contributing to her chest discomfort. She did have a GI cocktail in the emergency room which did not help with her chest discomfort. I recommend she continue on proton pump inhibitor. She may benefit from an upper endoscopy but we could try to coordin ate this as an outpatient. (5) Morbid obesity Status: Chronic Assessment & Plan: She needs to work on weight loss. (6) Cigarette smoker Assessment & Plan: She needs to quit smoking. She has been counseled in this regard. RAHEEM LI JR, MD Dec 28, 2021 10:46
[2021-12-28] MEDS ORDERED: hydrOXYzine (VISTARIL/ATARAX) 25 MG capsule/tablet PO PRN (11:30)
[2021-12-28] MEDS ORDERED: RT-ALBUTEROL/IPRATROPIUM 3 ML (DUONEB) VIAL INH PRN (11:45)
[2021-12-28 12:00] VITALS: BP 147/74
[2021-12-28] MEDS: RANOLAZINE ER 500 MG TAB (RANEXA) PO SCH ×2 (12:11→20:00)
[2021-12-28] MEDS: PREGABALIN 150 MG (LYRICA) CAPSULE PO SCH ×2 (12:11→20:00)
[2021-12-28] MEDS: busPIRone 15 MG (BUSPAR) TABLET PO SCH ×2 (12:14→20:00)
[2021-12-28 15:54] VITALS: BP 121/66
[2021-12-28] MEDS: oxyCODONE/APAP 5/325MG (PERCOCET 5) TABLET PO PRN (16:54)
[2021-12-28] MEDS ORDERED: PATIENT MAY USE OWN MEDS, ALL MC SCH (18:45)
[2021-12-28 19:30] VITALS: BP 136/76
[2021-12-28] MEDS: diphenhydrAMINE 25 MG TAB (BENADRYL) PO SCH (20:00)
[2021-12-28] MEDS: ATENOLOL 25 MG (TENORMIN) TAB PO SCH (20:00)
[2021-12-28] MEDS: lisINopril 20 MG (PRINIVIL) TABLET PO SCH (20:01)
[2021-12-28] MEDS ORDERED: ETHOSUXIMIDE 250 MG CAPSULE PO SCH (21:00)
[2021-12-28] MEDS ORDERED: NON-FORMULARY MEDICATION 1 EA EA (Atenolol 50 MG) PO SCH (21:00)
[2021-12-28] MEDS ORDERED: RANOLAZINE ER 500 MG TAB (RANEXA) PO SCH (21:00)
[2021-12-28] MEDS ORDERED: AtorvaSTATin TABLET 10 MG TABLET PO SCH (21:00)
[2021-12-29] VITALS: BP 111/53
[2021-12-29 04:00] VITALS: BP 143/64
[2021-12-29] MEDS: oxyCODONE/APAP 5/325MG (PERCOCET 5) TABLET PO PRN ×2 (04:47→12:25)
[2021-12-29 05:33] LABS: BASOPHILS # (AUTO) 0.1 10^3/uL (0.0-0.1); BASOPHILS % (AUTO) 1 % (0-10); EOSINOPHILS # (AUTO) 0.2 10^3/uL (0.0-0.3); EOSINOPHILS % (AUTO) 2 % (0-10); HEMATOCRIT 34 % (35-52); HEMOGLOBIN 11.1 g/dL (11.5-16.0); LYMPHOCYTES # (AUTO) 2.9 10^3/uL (1.0-4.0); LYMPHOCYTES % (AUTO) 27 % (12-44); MEAN CORPUSCULAR HEMOGLOBIN 28 pg (25-34); MEAN CORPUSCULAR HGB CONC 33 g/dL (32-36); MEAN CORPUSCULAR VOLUME 86 fL (80-99); MEAN PLATELET VOLUME 9.9 fL (9.0-12.2); MONOCYTES # (AUTO) 0.4 10^3/uL (0.0-1.0); MONOCYTES % (AUTO) 4 % (0-12); NEUTROPHILS # (AUTO) 7.1 10^3/uL (1.8-7.8); NEUTROPHILS % (AUTO) 67 % (42-75); PLATELET COUNT 343 10^3/uL (130-400); WHITE BLOOD COUNT 10.7 10^3/uL (4.3-11.0)
[2021-12-29 05:58] LABS: CALCIUM 9.1 MG/DL (8.5-10.1)
[2021-12-29 06:02] LABS: CREATININE SERUM 0.78 MG/DL (0.60-1.30)
[2021-12-29] MEDS: ACETAMINOPHEN 500 MG TAB (TYLENOL) PO PRN ×2 (07:49→15:15)
[2021-12-29] MEDS: PREGABALIN 150 MG (LYRICA) CAPSULE PO SCH ×2 (07:50→12:28)
[2021-12-29] MEDS: busPIRone 15 MG (BUSPAR) TABLET PO SCH ×2 (07:50→12:25)
[2021-12-29] MEDS: lisINopril 20 MG (PRINIVIL) TABLET PO SCH (07:51)
[2021-12-29] MEDS: diphenhydrAMINE 25 MG TAB (BENADRYL) PO SCH (07:51)
[2021-12-29] MEDS: ATENOLOL 25 MG (TENORMIN) TAB PO SCH (07:51)
[2021-12-29] MEDS: RANOLAZINE ER 500 MG TAB (RANEXA) PO SCH (07:51)
[2021-12-29 07:58] VITALS: BP 137/70
--- NOTE | 2021-12-29 08:52 | Cardiology Progress Note ---
Progress Note-Cardiology Events since last exam Date Seen by Provider: Dec 29, 2021 Time Seen by Provider: 08:48 Events since last exam I am following her due to coronary artery disease and chest pain. She continues to have intermittent chest tightness. She does not feel like the ranolazine has made any difference in her chest discomfort. She has intermittent nausea. She denies shortness of breath at rest. She has intermittent fluttering sensations and some lightheadedness but denies syncope. She denies any lower extremity edema. Certain portions of this document may have been dictated utilizing voice recognition technology. Inherent to this technology, typographical and grammatical errors may exist. As much as I am diligent to identify and correct these mistakes, some errors may remain in the document. Vitals Last set of Vitals Signs Vital Signs 12/28/21 12/29/21 12/29/21 10:12 12:00 12:33 Temp 35.8 Pulse 76 Resp 18 B/P (MAP) 113/54 (73) Pulse Ox 94 O2 Delivery Room Air FiO2 21 Labs Labs Laboratory Tests 12/29/21 05:14 Exam Vital Signs Vital Signs Date Time Temp Pulse Resp B/P (MAP) Pulse Ox O2 Delivery O2 Flow Rate FiO2 12/29/21 12:33 76 12/29/21 12:00 35.8 18 113/54 (73) 94 Room Air 12/28/21 10:12 21 Physical Exam General: Alert. No acute distress. She is morbidly obese. Eye: No xanthelasma. HENT: Normocephalic. Neck: Jugular venous pressure does not appear elevated. Respiratory: Lungs are clear to auscultation. Respirations are non-labored. Breath sounds are equal. Symmetrical chest wall expansion. Cardiovascular: Normal rate. Regular rhythm. No murmur. No gallop. No edema. Gastrointestinal: Soft. Normal bowel sounds. Skin: Warm. Dry. Neurologic: Alert and oriented to person, place, time. Cranial nerves 3-11 grossly intact. Psychiatric: Cooperative. Appropriate mood & affect. Labs Laboratory Tests Test 12/28/21 14:10 12/29/21 05:14 Range/Units Troponin I < 0.028 <0.028 NG/ML White Blood Count 10.7 4.3-11.0 10^3/uL Red Blood Count 3.92 3.80-5.11 10^6/uL Hemoglobin 11.1 L 11.5-16.0 g/dL Hematocrit 34 L 35-52 % Mean Corpuscular Volume 86 80-99 fL Mean Corpuscular Hemoglobin 28 25-34 pg Mean Corpuscular Hemoglobin Concent 33 32-36 g/dL Red Cell Distribution Width 16.1 H 10.0-14.5 % Platelet Count 343 130-400 10^3/uL Mean Platelet Volume 9.9 9.0-12.2 fL Immature Granulocyte % (Auto) 0 % Neutrophils (%) (Auto) 67 42-75 % Lymphocytes (%) (Auto) 27 12-44 % Monocytes (%) (Auto) 4 0-12 % Eosinophils (%) (Auto) 2 0-10 % Basophils (%) (Auto) 1 0-10 % Neutrophils # (Auto) 7.1 1.8-7.8 10^3/uL Lymphocytes # (Auto) 2.9 1.0-4.0 10^3/uL Monocytes # (Auto) 0.4 0.0-1.0 10^3/uL Eosinophils # (Auto) 0.2 0.0-0.3 10^3/uL Basophils # (Auto) 0.1 0.0-0.1 10^3/uL Immature Granulocyte # (Auto) 0.0 0.0-0.1 10^3/uL Sodium Level 140 135-145 MMOL/L Potassium Level 4.0 3.6-5.0 MMOL/L Chloride Level 104 98-107 MMOL/L Carbon Dioxide Level 24 21-32 MMOL/L Anion Gap 12 5-14 MMOL/L Blood Urea Nitrogen 18 7-18 MG/DL Creatinine 0.78 0.60-1.30 MG/DL Estimat Glomerular Filtration Rate 97 BUN/Creatinine Ratio 23 Glucose Level 105 70-105 MG/DL Calcium Level 9.1 8.5-10.1 MG/DL Diagnosis/Problems Diagnosis/Problems (1) Coronary artery disease with unstable angina pectoris Status: Acute Assessment & Plan: She is having symptoms concerning for unstable angina however, she has had 3 undetectable troponin levels and ischemic changes on her electrocardiogram. I am not convinced that her chest discomfort is angina but I can also not exclude this as a possibility. I will maximize the dose of ranolazine. We will continue aspirin, long-acting nitrates, beta-ishan, and statin medication. If we cannot get her symptoms under control with medical therapy, then we may need to consider complicated percutaneous intervention to the left anterior descending and a diagonal branch. However, I am concerned that even if I intervene on her coronary artery disease, she might still have chest pain. She had a negative upper endoscopy in June. I have placed an order to have Dr. Brown come back and see her and weigh in on the chest pain. I will also increase her dose of pantoprazole to twice daily. If she feels better this afternoon, she can be discharged to home from a cardiac standpoint. I have placed an order for the staff to get her a follow-up appointment to see me in 1 month. (2) Primary hypertension Assessment & Plan: Continue beta-ishan. (3) Mixed hyperlipidemia Assessment & Plan: Continue statin medication. I added a lipid panel to her previous blood work. (4) Gastroesophageal reflux disease with esophagitis Assessment & Plan: Unclear whether or not this could be contributing to her chest discomfort. She did have a GI cocktail in the emergency room which did not help with her chest discomfort. I recommend she continue on proton pump inhibitor. She may benefit from an upper endoscopy but we could try to coordinate this as an outpatient. (5) Morbid obesity Status: Chronic Assessment & Plan: She needs to work on weight loss. (6) Cigarette smoker Assessment & Plan: She needs to quit smoking. She has been counseled in this regard. RAHEEM LI JR, MD Dec 29, 2021 08:51
[2021-12-29] MEDS ORDERED: ISOSORBIDE MONONITRATE 60 MG (IMDUR) TAB PO SCH (09:00)
[2021-12-29] MEDS ORDERED: HydroCHLOROthiazide CAP/TABLET 12.5 MG TAB PO SCH (09:00)
[2021-12-29] MEDS ORDERED: ASPIRIN E.C. 81 MG (ECOTRIN) TAB PO SCH (09:00)
[2021-12-29] MEDS ORDERED: FLUOXETINE HCL 80 MG PO SCH (09:00)
[2021-12-29] MEDS ORDERED: FLUoxetine HCL 20 MG (PROzac) CAP PO SCH (09:00)
[2021-12-29] MEDS ORDERED: NON-FORMULARY MEDICATION 1 EA EA (Hydrochlorothiazide 12.5 MG) PO SCH (09:00)
[2021-12-29] MEDS ORDERED: PANTOPRAZOLE 40 MG (PROTONIX) TAB PO SCH ×2 (09:00)
[2021-12-29] MEDS ORDERED: RANOLAZINE ER 500 MG TAB (RANEXA) PO SCH (09:00)
[2021-12-29] MEDS ORDERED: NON-FORMULARY MEDICATION 1 EA EA (Omeprazole 40 MG) PO SCH (09:00)
--- NOTE | 2021-12-29 10:07 | History & Physical ---
HPI History of Present Illness: 41 yo female came to ER after she woke up and got up to go to the bathroom, took her dog out, sat down and started having chest pain and nausea around midnight on 12/28. [place] like pressure in midchest. She did not have shortness of breath or sweating at that time. Denies fever, change in cough- admits chronic cough from COPD. Has been sweating since she got to the hospital. She keeps feeling like she is overheated. Chest pressure still present but better than it was. Has had trouble with palpitations in the past and states when she was little she was seen for that (as a child) and was told everything was fine, she did have a heart murmur and non-significant skipped beats. Source: patient Date seen by provider: Dec 29, 2021 Time Seen by Provider: 10:05 Attending Physician Gertrude Lam Aprn PCP Admitting Physician: Nikolai Rodriguez MD Attending Physician: Nikolai Rodriguez MD Consult Date of Admission Dec 28, 2021 at 08:51 Home Medications Home Medications Reviewed patient Home Medication Reconciliation performed by pharmacy medication reconciliations field technician and/or nursing. Patients Allergies have been reviewed. Allergies Coded Allergies: gabapentin (Verified Allergy, Unknown, 01/25/19) metoclopramide (Unverified Allergy, Unknown, "CAUSES PT TO LOSE CONTROL OF MUSCLES", 01/25/19) OPI-Wkjkal-Obumnd Hx Patient Social History Smoking Status: Current Everyday Smoker 2nd Hand Smoke Exposure: No Recent Hopitalizations: No Alcohol Use?: No Tobacco type used: Cigarettes Have you traveled recently?: No Immunizations Up To Date Tetanus Booster (TDap): Unknown First/Initial COVID19 Vaccinat: None Past Medical History PMHx: COPD Asthma Recurrent ear infections HTN SurgHx: Bilateral tubal ligation x 3 Laparscopy for endometriosis x 2 Hysterectomy Facial tumor removal Tympanostomy tubes Ear surgery x 3 to repair bones related to hearing and to remove part of mastoid possibly Cholecystectomy Several colonoscopies and EGDs Bilateral carpa tunnel release Family Medical History Significant Family History: GI Disease Review of Systems ([facility]) Constitutional: No fever EENTM: No nose congestion, No throat pain Respiratory: cough, short of breath (intermittent) Cardiovascular: see HPI Gastrointestinal: abdominal pain (LLQ); No constipation, No diarrhea, No heartburn; nausea, vomiting (x1 after receiving morphine in the hospital) Genitourinary: No dysuria Musculoskeletal: joint pain (chronic), muscle pain (chronic) Skin: No rash Reviewed Test Results Reviewed Test Results Lab Laboratory Tests Test 12/28/21 02:15 12/28/21 02:40 12/28/21 03:20 12/28/21 09:55 Range/Units White Blood Count 13.5 H 4.3-11.0 10^3/uL Red Blood Count 3.87 3.80-5.11 10^6/uL Hemoglobin 10.9 L 11.5-16.0 g/dL Hematocrit 33 L 35-52 % Mean Corpuscular Volume 85 80-99 fL Mean Corpuscular Hemoglobin 28 25-34 pg Mean Corpuscular Hemoglobin Concent 33 32-36 g/dL Red Cell Distribution Width 16.2 H 10.0-14.5 % Platelet Count 363 130-400 10^3/uL Mean Platelet Volume 9.7 9.0-12.2 fL Immature Granulocyte % (Auto) 0 % Neutrophils (%) (Auto) 57 42-75 % Lymphocytes (%) (Auto) 36 12-44 % Monocytes (%) (Auto) 5 0-12 % Eosinophils (%) (Auto) 2 0-10 % Basophils (%) (Auto) 1 0-10 % Neutrophils # (Auto) 7.7 1.8-7.8 10^3/uL Lymphocytes # (Auto) 4.8 H 1.0-4.0 10^3/uL Monocytes # (Auto) 0.6 0.0-1.0 10^3/uL Eosinophils # (Auto) 0.2 0.0-0.3 10^3/uL Basophils # (Auto) 0.1 0.0-0.1 10^3/uL Immature Granulocyte # (Auto) 0.1 0.0-0.1 10^3/uL Neutrophils % (Manual) 51 % Lymphocytes % (Manual) 31 % Monocytes % (Manual) 4 % Eosinophils % (Manual) 2 % Band Neutrophils 5 % Atypical Lymphocytes 1 % Reactive Lymphocytes 6 % Platelet Estimate NORMAL Anisocytosis SLIGHT Stomatocytes SLIGHT Sodium Level 138 135-145 MMOL/L Potassium Level 3.6 3.6-5.0 MMOL/L Chloride Level 102 98-107 MMOL/L Carbon Dioxide Level 26 21-32 MMOL/L Anion Gap 10 5-14 MMOL/L Blood Urea Nitrogen 21 H 7-18 MG/DL Creatinine 0.92 0.60-1.30 MG/DL Estimat Glomerular Filtration Rate 80 BUN/Creatinine Ratio 23 Glucose Level 90 70-105 MG/DL Calcium Level 8.9 8.5-10.1 MG/DL Corrected Calcium 8.8 8.5-10.1 MG/DL Magnesium Level 1.5 L 1.6-2.4 MG/DL Total Bilirubin 0.3 0.1-1.0 MG/DL Aspartate Amino Transf (AST/SGOT) 56 H 5-34 U/L Alanine Aminotransferase (ALT/SGPT) 31 0-55 U/L Alkaline Phosphatase 151 H 40-136 U/L Troponin I < 0.30 < 0.30 < 0.028 <0.028 NG/ML Total Protein 7.4 6.4-8.2 GM/DL Albumin 4.1 3.2-4.5 GM/DL Serum Alcohol < 10 <10 MG/DL Urine Color YELLOW Urine Clarity CLEAR Urine pH 6.0 5-9 Urine Specific [place] 1.025 H 1.016-1.022 Urine Protein NEGATIVE NEGATIVE Urine Glucose (UA) NEGATIVE NEGATIVE Urine Ketones NEGATIVE NEGATIVE Urine Nitrite NEGATIVE NEGATIVE Urine Bilirubin NEGATIVE NEGATIVE Urine Urobilinogen 0.2 < = 1.0 MG/DL Urine Leukocyte Esterase NEGATIVE NEGATIVE Urine RBC (Auto) NEGATIVE NEGATIVE Urine RBC 0-2 /HPF Urine WBC 0-2 /HPF Urine Squamous Epithelial Cells 25-50 H /HPF Urine Crystals NONE /LPF Urine Bacteria TRACE /HPF Urine Casts NONE /LPF Urine Mucus NEGATIVE /LPF Urine Culture Indicated NO Urine Opiates Screen NEGATIVE NEGATIVE Urine Oxycodone Screen NEGATIVE NEGATIVE Urine Methadone Screen NEGATIVE NEGATIVE Urine Propoxyphene Screen NEGATIVE NEGATIVE Urine Barbiturates Screen NEGATIVE NEGATIVE Ur Tricyclic Antidepressants Screen NEGATIVE NEGATIVE Urine Phencyclidine Screen NEGATIVE NEGATIVE Urine Amphetamines Screen NEGATIVE NEGATIVE Urine Methamphetamines Screen NEGATIVE NEGATIVE Urine Benzodiazepines Screen POSITIVE H NEGATIVE Urine Cocaine Screen NEGATIVE NEGATIVE Urine Cannabinoids Screen NEGATIVE NEGATIVE Test 12/28/21 14:10 12/29/21 05:14 Range/Units Troponin I < 0.028 <0.028 NG/ML White Blood Count 10.7 4.3-11.0 10^3/uL Red Blood Count 3.92 3.80-5.11 10^6/uL Hemoglobin 11.1 L 11.5-16.0 g/dL Hematocrit 34 L 35-52 % Mean Corpuscular Volume 86 80-99 fL Mean Corpuscular Hemoglobin 28 25-34 pg Mean Corpuscular Hemoglobin Concent 33 32-36 g/dL Red Cell Distribution Width 16.1 H 10.0-14.5 % Platelet Count 343 130-400 10^3/uL Mean Platelet Volume 9.9 9.0-12.2 fL Immature Granulocyte % (Auto) 0 % Neutrophils (%) (Auto) 67 42-75 % Lymphocytes (%) (Auto) 27 12-44 % Monocytes (%) (Auto) 4 0-12 % Eosinophils (%) (Auto) 2 0-10 % Basophils (%) (Auto) 1 0-10 % Neutrophils # (Auto) 7.1 1.8-7.8 10^3/uL Lymphocytes # (Auto) 2.9 1.0-4.0 10^3/uL Monocytes # (Auto) 0.4 0.0-1.0 10^3/uL Eosinophils # (Auto) 0.2 0.0-0.3 10^3/uL Basophils # (Auto) 0.1 0.0-0.1 10^3/uL Immature Granulocyte # (Auto) 0.0 0.0-0.1 10^3/uL Sodium Level 140 135-145 MMOL/L Potassium Level 4.0 3.6-5.0 MMOL/L Chloride Level 104 98-107 MMOL/L Carbon Dioxide Level 24 21-32 MMOL/L Anion Gap 12 5-14 MMOL/L Blood Urea Nitrogen 18 7-18 MG/DL Creatinine 0.78 0.60-1.30 MG/DL Estimat Glomerular Filtration Rate 97 BUN/Creatinine Ratio 23 Glucose Level 105 70-105 MG/DL Calcium Level 9.1 8.5-10.1 MG/DL Physical Exam-([facility]) Physical Exam Vital Signs VS - Last 72 Hours, by Label 12/28/21 12/28/21 12/28/21 12/28/21 02:07 06:49 09:30 10:12 Temp 35.9 35.9 35.9 Pulse 75 72 68 67 Resp 20 16 20 B/P (MAP) 178/81 (113) 125/66 141/87 (105) Pulse Ox 100 96 95 94 O2 Delivery Room Air Room Air FiO2 21 12/28/21 12/28/21 12/28/21 12/28/21 10:12 10:36 12:00 12:25 Temp 35.5 Pulse 71 68 69 Resp 16 B/P (MAP) 147/74 (98) Pulse Ox 94 90 O2 Delivery Room Air Room Air 12/28/21 12/28/21 12/28/21 12/28/21 15:54 19:00 19:30 20:00 Temp 36.5 36.5 Pulse 68 69 68 Resp 20 20 B/P (MAP) 121/66 (84) 136/76 (96) Pulse Ox 94 96 O2 Delivery Room Air Room Air Room Air 12/29/21 12/29/21 12/29/21 12/29/21 00:00 01:00 04:00 07:30 Temp 36.2 36.4 Pulse 65 75 74 67 Resp 18 18 B/P (MAP) 111/53 (72) 143/64 (90) Pulse Ox 96 93 O2 Delivery Room Air Room Air 12/29/21 12/29/21 07:58 12:00 Temp 35.9 35.8 Pulse 66 63 Resp 18 18 B/P (MAP) 137/70 (92) 113/54 (73) Pulse Ox 93 94 O2 Delivery Room Air Room Air Capillary Refill : Less Than 3 Seconds General Appearance: no apparent distress, obese Respiratory: lungs clear, normal breath sounds Cardiovascular: regular rate, rhythm, no murmur Gastrointestinal: normal bowel sounds, non tender, soft Extremities: no pedal edema Neurologic/Psychiatric: alert, normal mood/affect Skin: normal color, warm/dry Assessment/Plan Assessment/Plan Admission Status: Observation (1) Coronary artery disease with unstable angina pectoris Status: Acute Assessment & Plan: Cardiology consulted, appreciate recommendations. Had cardiac cath in October without intervention. Troponin neg x 3 and no ischemic changes on EKG. Ranolazine, asa, nitritates, beta ishan and statin ordered. (2) Gastroesophageal reflux disease with esophagitis Assessment & Plan: Possibly contributing although did not have improvement with GI cocktail, has had recent EGD. Dr. Brown consulted per Cardiology. PPI increased to BID. (3) Mixed hyperlipidemia (4) Primary hypertension NIKOLAI RODRIGUEZ MD Dec 29, 2021 10:07
[2021-12-29 12:00] VITALS: BP 113/54
[2021-12-29] MEDS ORDERED: RANO500T3 PO (12:21)
[2021-12-29] MEDS ORDERED: PANT40TA52 PO (12:21)
[2021-12-29 13:05] LABS: TRIGLYCERIDES 69 MG/DL (<150); VLDL CHOLESTEROL 14 MG/DL (5-40)
[2021-12-29 13:10] LABS: CHOLESTEROL 151 MG/DL (< 200); HDL CHOLESTEROL 52 MG/DL (40-60)
--- NOTE | 2021-12-29 13:27 | Discharge Summary ---
Discharge Summary Hospital Course Problems/Diagnosis: (1) Coronary artery disease with unstable angina pectoris Status: Acute Assessment & Plan: Cardiology consulted, appreciate recommendations. Had cardiac cath in October without intervention. Troponin neg x 3 and no ischemic changes on EKG. Ranolazine, asa, nitritates, beta ishan and statin ordered. (2) Gastroesophageal reflux disease with esophagitis Assessment & Plan: Possibly contributing although did not have improvement with GI cocktail, has had recent EGD. Dr. Brown consulted per Cardiology. PPI increased to BID. (3) Mixed hyperlipidemia (4) Primary hypertension Hospital Course Date of Admission: Dec 28, 2021 at 08:51 Admission Diagnosis : Family Physician/Provider: [place] [place] Date of Discharge: 12/29/21 Discharge Diagnosis: See problem list Hospital Course: See problem list Labs and Pending Lab Test: Laboratory Tests 12/28/21 14:10: Troponin I < 0.028 12/29/21 05:14: White Blood Count 10.7, Red Blood Count 3.92, Hemoglobin 11.1L, Hematocrit 34L, Mean Corpuscular Volume 86, Mean Corpuscular Hemoglobin 28, Mean Corpuscular Hemoglobin Concent 33, Red Cell Distribution Width 16.1H, Platelet Count 343, Mean Platelet Volume 9.9, Immature Granulocyte % (Auto) 0, Neutrophils (%) (Auto) 67, Lymphocytes (%) (Auto) 27, Monocytes (%) (Auto) 4, Eosinophils (%) (Auto) 2, Basophils (%) (Auto) 1, Neutrophils # (Auto) 7.1, Lymphocytes # (Auto) 2.9, Monocytes # (Auto) 0.4, Eosinophils # (Auto) 0.2, Basophils # (Auto) 0.1, Immature Granulocyte # (Auto) 0.0, Sodium Level 140, Potassium Level 4.0, Chloride Level 104, Carbon Dioxide Level 24, Anion Gap 12, Blood Urea Nitrogen 18, Creatinine 0.78, Estimat Glomerular Filtration Rate 97, BUN/Creatinine Ratio 23, Glucose Level 105, Calcium Level 9.1, Triglycerides Level 69, Cholesterol Level 151, LDL Cholesterol Direct 95, VLDL Cholesterol 14, HDL Cholesterol 52 Home Meds Active Pantoprazole Sodium 40 Mg Tablet.dr 40 Mg PO BID Ranexa (Ranolazine) 500 Mg Tab.er.12h 1,000 Mg PO BID Reported Benadryl Allergy (Diphenhydramine HCl) 25 Mg Tablet 50 Mg PO BID TAKES 2 (25MG) TABS Tylenol Extra Strength (Acetaminophen) 500 Mg Tablet 1,000 Mg PO Q8H PRN Tizanidine HCl 4 Mg Tablet 4 Mg PO TID PRN Isosorbide Mononitrate ER (Isosorbide Mononitrate) 60 Mg Tab 60 Mg PO DAILY Nitroglycerin 0.4 Mg Tab.subl 0.4 Mg SL UD PRN Hydroxyzine HCl 25 Mg Tablet 25 Mg PO TID PRN Atorvastatin Calcium 10 Mg Tablet 10 Mg PO HS Pregabalin 150 Mg Capsule 150 Mg PO TID Buspirone HCl 15 Mg Tablet 15 Mg PO TID Aspirin EC (Aspirin) 81 Mg Tablet.dr 81 Mg PO DAILY Hydrochlorothiazide 12.5 Mg Tablet 12.5 Mg PO DAILY Atenolol 50 Mg Tablet 50 Mg PO BID Estradiol Tablet (Estradiol) 1 Mg Tablet 1 Mg PO DAILY Lisinopril 20 Mg Tablet 20 Mg PO BID Fluoxetine HCl 40 Mg Capsule 80 Mg PO DAILY TAKES 2 (40MG) CAPS Ethosuximide 250 Mg Capsule 250 Mg PO HS Assessment/Pt DC Instructions Follow up with primary doctor within a week of discharge. Discharge Diet: Cardiac Diet Activity as Tolerated: Yes Discharge Physical Examination Allergies: Coded Allergies: gabapentin (Verified Allergy, Unknown, 01/25/19) metoclopramide (Unverified Allergy, Unknown, "CAUSES PT TO LOSE CONTROL OF MUSCLES", 01/25/19) General Appearance: No Apparent Distress, WD/WN Respiratory: Lungs Clear, Normal Breath Sounds Cardiovascular: Regular Rate, Rhythm, No Murmur Gastrointestinal: Normal Bowel Sounds, Non Tender, Soft Extremity: No Pedal Edema Skin: Warm/Dry Neurologic/Psychiatric: Alert, Normal Mood/Affect NIKOLAI ROCA MD Dec 29, 2021 13:27
--- NOTE | 2021-12-29 13:43 | Consultation - Surgery ---
LO PEREZ 12/29/21 1343: History of Present Illness History of Present Illness Patient Consulted On(seun/time) 12/29/21 13:38 Date Seen by Provider: Dec 29, 2021 Time Seen by Provider: 13:38 Reason for Visit: chest pain and abd pain History of Present Illness Consulted by Dr. Mcwilliams 41yo female with h/o cholecystecomy presents with c/o constant squeezing press ure in her chest that started 2 night ago. Pt denies any radiation of the pain and states that moving exacerbates her pain. Pt says that she is not currently experiencing chest pain but when she was it was an 8/10. Pt also c/o cramping epigastric abdominal pain that started yesterday. Pt rates the pain a 6/10 and states that it's constant but sometimes gets worse. Pt states that nothing makes the pain better or worse. Pt denies n/v, SOB, and sweats. Pt has history of recent cardiac catherization and has been seen by cardiology. Allergies and Home Medications Allergies Coded Allergies: gabapentin (Verified Allergy, Unknown, 01/25/19) metoclopramide (Unverified Allergy, Unknown, "CAUSES PT TO LOSE CONTROL OF MUSCLES", 01/25/19) Patient Home Medication List Home Medication List Reviewed: Yes Acetaminophen (Tylenol Extra Strength) 500 Mg Tablet, 1,000 MG PO Q8H PRN for PAIN-MILD (1-4), (Reported) Entered as Reported by: KEILY JONES on 12/28/21 1045 Last Action: Continued Aspirin (Aspirin EC) 81 Mg Tablet.dr, 81 MG PO DAILY, (Reported) Entered as Reported by: DC CANSECO on 11/04/21834 Last Action: Continued Atenolol (Atenolol) 50 Mg Tablet, 50 MG PO BID, (Reported) Entered as Reported by: DC CANSECO on 11/04/21834 Last Action: Converted Atorvastatin Calcium (Atorvastatin Calcium) 10 Mg Tablet, 10 MG PO HS, (Reported) Entered as Reported by: DC CANSECO on 11/04/21834 Last Action: Continued Buspirone HCl (Buspirone HCl) 15 Mg Tablet, 15 MG PO TID, (Reported) Entered as Reported by: DC CANSECO on 6/23/22 0835 Last Action: Continued Diphenhydramine HCl (Benadryl Allergy) 25 Mg Tablet, 50 MG PO BID, (Reported) Entered as Reported by: KEILY JONES on 12/28/21 1045 Last Action: Continued Estradiol (Estradiol Tablet) 1 Mg Tablet, 1 MG PO DAILY, (Reported) Entered as Reported by: MADDY DANIELLE on 05/20/19 1327 Last Action: Reviewed Ethosuximide (Ethosuximide) 250 Mg Capsule, 250 MG PO HS, (Reported) Entered as Reported by: MADDY DANIELLE on 04/12/16 0942 Last Action: Converted Fluoxetine HCl (Fluoxetine HCl) 40 Mg Capsule, 80 MG PO DAILY, (Reported) Entered as Reported by: LILIBETH DOUGLAS on 01/26/19 0349 Last Action: Converted Hydrochlorothiazide (Hydrochlorothiazide) 12.5 Mg Tablet, 12.5 MG PO DAILY, (Reported) Entered as Reported by: DC CANSECO on 11/04/21 0835 Last Action: Converted Hydroxyzine HCl (Hydroxyzine HCl) 25 Mg Tablet, 25 MG PO TID PRN for ANXIETY, (Reported) Entered as Reported by: DC CANSECO on 11/04/21 08 Last Action: Converted Isosorbide Mononitrate (Isosorbide Mononitrate ER) 60 Mg Tab, 60 MG PO DAILY, (Reported) Entered as Reported by: KEILY JONES on 12/28/21 1042 Last Action: Continued Lisinopril (Lisinopril) 20 Mg Tablet, 20 MG PO BID, (Reported) Entered as Reported by: MADDY DANIELLE on 05/20/19 1324 Last Action: Continued Nitroglycerin (Nitroglycerin) 0.4 Mg Tab.subl, 0.4 MG SL UD PRN for CHEST PAIN, (Reported) Entered as Reported by: KEILY JONES on 12/28/21 104 Last Action: Continued Pantoprazole Sodium (Pantoprazole Sodium) 40 Mg Tablet.dr, 40 MG PO BID Prescribed by: RAHEEM MCWILLIAMS JR, MD on 12/29/21 1221 Pregabalin (Pregabalin) 150 Mg Capsule, 150 MG PO TID, (Reported) Entered as Reported by: DC CANSECO on 11/04/21 0835 Last Action: Continued Ranolazine (Ranexa) 500 Mg Tab.er.12h, 1,000 MG PO BID Prescribed by: RAHEEM MCWILLIAMS JR, MD on 12/29/21 1221 Tizanidine HCl (Tizanidine HCl) 4 Mg Tablet, 4 MG PO TID PRN for MUSCLE SPASMS, (Reported) Entered as Reported by: KEILY OJNES on 12/28/21 1042 Last Action: Continued Discontinued Medications Albuterol Sulfate (Proair Hfa) 1 Puff Puff, 2 PUFF IH Q4H PRN for WHEEZING, (Reported) Discontinued Reason: No Longer Taking Entered as Reported by: MADDY DANIELLE on 02/20/19 1051 Last Action: Discontinued Cyclobenzaprine HCl (Cyclobenzaprine HCl) 10 Mg Tablet, 10 MG PO TID PRN for PAIN-MODERATE (5-7), (Reported) Discontinued Reason: No Longer Taking Entered as Reported by: MEGHAN LEES on 06/28/21 1302 Last Action: Discontinued Fluticasone/Salmeterol (Advair 250-50 Diskus) 1 Each Blst.w.dev, 1 EACH IH BID, (Reported) Discontinued Reason: No Longer Taking Entered as Reported by: MADDY DANIELLE on 02/20/19 1051 Last Action: Discontinued Isosorbide Mononitrate (Isosorbide Mononitrate ER) 60 Mg Tab, 60 MG PO DAILY Discontinued Reason: No Longer Taking Prescribed by: RAHEEM MCWILLIAMS JR, MD on 11/04/21 1003 Last Action: Discontinued Meloxicam (Meloxicam) 15 Mg Tablet, 15 MG PO DAILY, (Reported) Entered as Reported by: MEGHAN LEES on 06/28/21 1302 Last Action: Reviewed Nitroglycerin (Nitroglycerin) 0.4 Mg Tab.subl, 0.4 MG SL NEEDED PRN for CHEST PAIN (ANGINA) Discontinued Reason: No Longer Taking Prescribed by: RAHEEM MCWILLIAMS JR, MD on 11/04/21 1021 Last Action: Discontinued Omeprazole (Omeprazole) 40 Mg Capsule.dr, 40 MG PO DAILY, (Reported) Entered as Reported by: LILIBETH DOUGLAS on 01/26/19 6111 Last Action: Converted Past Skqjntr-Apqdpu-Iqzbir Hx Patient Social History Smoking Status: Current Everyday Smoker Type Used: Cigarettes 2nd Hand Smoke Exposure: No Recent Hopitalizations: No Alcohol Use?: No Have you traveled recently?: No Immunizations Up To Date Tetanus Booster (TDap): Unknown Seasonal Allergies Seasonal Allergies: Yes Surgeries History of Surgeries: Yes (dental extractions, dxls, bmt, 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, LEFT EAR) Surgeries: Section, Ear Surgery, Gallbladder, Hysterectomy, 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 Respiratory History of Respiratory Disorde: Yes Respiratory Disorders: Asthma, COPD Cardiovascular History of Cardiac Disorders: Yes Cardiac Disorders: Heart Murmur, Hypertension, Irregular Heartbeat Neurological History of Neurological Disord: Yes Neurological Disorders: Headaches /Migraines, Seizure Disorder 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 System Hx 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 Disorders: Yes Sexually Transmitted Disease: No Female 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 Disorders: 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 [employer] History: Hysterectomy, 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 Genitourinary History of Genitourinary Disor: Yes Genitourinary Disorders: Kidney Stones Gastrointestinal History of Gastrointestinal Di: Yes Gastrointestinal Disorders: Colitis, Gastroesophageal Reflux, Diverticulosis, Polyps, Ulcer Musculoskeletal History of Musculoskeletal Dis: Yes (spina bifida) Musculoskeletal Disorders: Arthritis, Scoliosis, Chronic Back Pain Endocrine History of Endocrine Disorders: No HEENT History of HEENT Disorders: Yes HEENT Disorders: Chronic Ear Infection Hearing Impairment: Denies, Hard of Hearing Cancer History of Cancer: No Psychosocial History of Psychiatric Problem: Yes Behavioral Health Disorders: Anxiety, Depression Integumentary History of Skin or Integumenta: No Blood Transfusions History of Blood Disorders: No Family Medical History Significant Family History: GI Disease Review of Systems-General Constitutional: No chills, No diaphoresis EENTM: No ear discharge, No hearing loss Respiratory: No cough, No dyspnea on exertion Cardiovascular: chest pain Gastrointestinal: abdominal pain (epigastric); No constipation Genitourinary: No decreased output, No discharge Musculoskeletal: No back pain, No gout Skin: No change in color, No change in hair/nails Psychiatric/Neurological: Denies Anxiety, Denies Depressed Physical Exam-General Problems Physical Exam Vital Signs Vital Signs - First Documented 12/28/21 12/28/21 02:07 06:49 Temp 35.9 Pulse 75 Resp 20 B/P (MAP) 178/81 (113) Pulse Ox 100 O2 Delivery Room Air Capillary Refill : Less Than 3 Seconds General Appearance: WD/WN, no apparent distress HEENT: PERRL/EOMI, normal ENT inspection Neck: non-tender, normal inspection Respiratory: no respiratory distress, no accessory muscle use Gastrointestinal: non tender, soft Back: normal inspection, no CVA tenderness Extremities: non-tender, normal inspection Neurologic/Psychiatric: alert, normal mood/affect Skin: normal color, warm/dry Lymphatic: no adenopathy Data Review Labs Laboratory Tests 12/28/21 14:10: Troponin I < 0.028 12/29/21 05:14: White Blood Count 10.7, Red Blood Count 3.92, Hemoglobin 11.1L, Hematocrit 34L, Mean Corpuscular Volume 86, Mean Corpuscular Hemoglobin 28, Mean Corpuscular Hemoglobin Concent 33, Red Cell Distribution Width 16.1H, Platelet Count 343, Mean Platelet Volume 9.9, Immature Granulocyte % (Auto) 0, Neutrophils (%) (Auto) 67, Lymphocytes (%) (Auto) 27, Monocytes (%) (Auto) 4, Eosinophils (%) (Auto) 2, Basophils (%) (Auto) 1, Neutrophils # (Auto) 7.1, Lymphocytes # (Auto) 2.9, Monocytes # (Auto) 0.4, Eosinophils # (Auto) 0.2, Basophils # (Auto) 0.1, Immature Granulocyte # (Auto) 0.0, Sodium Level 140, Potassium Level 4.0, Chloride Level 104, Carbon Dioxide Level 24, Anion Gap 12, Blood Urea Nitrogen 18, Creatinine 0.78, Estimat Glomerular Filtration Rate 97, BUN/Creatinine Ratio 23, Glucose Level 105, Calcium Level 9.1, Triglycerides Level 69, Cholesterol L evel 151, LDL Cholesterol Direct 95, VLDL Cholesterol 14, HDL Cholesterol 52 Assessment/Plan Assessment/Plan Assessment/Plan H/o cholecystectomy Cardiac catherization- October 2021 GERD Abdominal pain Chest pain Cardiology saw the pt and increased PPI to BID Recommend Discharge RAN CANTRELL DO 12/29/21 7447: History of Present Illness History of Present Illness History of Present Illness Consult requested by Dr. Mcwilliams for chest pain/GERD Patient 41-year-old female known to me. She has history of cholecystectomy and history of EGDs last 1 in June she came because of chest pain which was a constant squeezing pressure in her chest started 2 days ago. Nothing seems to make it better and moving or activity was making it worse. Denies any radiation of pain. She states at worst was an 8 out of 10. She also reports cramping epigastric abdominal pain that started yesterday. It is more like her chronic pain that she has. She states that it is about a 6 out of 10. Constant pain nothing seems to make it better or worse. She states that she is on omeprazole on a regular basis for her reflux. Patient hungry and wanting to eat lunch. Which she has in front of her. She is also wanting to go home. She denies any nausea vomiting fever sweats chills shortness of breath or chest pain at this time. Allergies and Home Medications Allergies Coded Allergies: gabapentin (Verified Allergy, Unknown, 01/25/19) metoclopramide (Unverified Allergy, Unknown, "CAUSES PT TO LOSE CONTROL OF MUSCLES", 01/25/19) Patient Home Medication List Home Medication List Reviewed: Yes Acetaminophen (Tylenol Extra Strength) 500 Mg Tablet, 1,000 MG PO Q8H PRN for PAIN-MILD (1-4), (Reported) Entered as Reported by: KEILY JONES on 12/28/211044 Last Action: Continued Aspirin (Aspirin EC) 81 Mg Tablet.dr, 81 MG PO DAILY, (Reported) Entered as Reported by: DC CANSECO on 11/04/21834 Last Action: Continued Atenolol (Atenolol) 50 Mg Tablet, 50 MG PO BID, (Reported) Entered as Reported by: DC CANSECO on 11/04/21834 Last Action: Converted Atorvastatin Calcium (Atorvastatin Calcium) 10 Mg Tablet, 10 MG PO HS, (Reported) Entered as Reported by: DC CANSECO on 11/04/21834 Last Action: Continued Buspirone HCl (Buspirone HCl) 15 Mg Tablet, 15 MG PO TID, (Reported) Entered as Reported by: DC CANSECO on 11/04/21834 Last Action: Continued Diphenhydramine HCl (Benadryl Allergy) 25 Mg Tablet, 50 MG PO BID, (Reported) Entered as Reported by: KEILY JONES on 12/28/211044 Last Action: Continued Estradiol (Estradiol Tablet) 1 Mg Tablet, 1 MG PO DAILY, (Reported) Entered as Reported by: MADDY DANIELLE on 05/20/19 1327 Last Action: Reviewed Ethosuximide (Ethosuximide) 250 Mg Capsule, 250 MG PO HS, (Reported) Entered as Reported by: MADDY DANIELLE on 04/12/16 0942 Last Action: Converted Fluoxetine HCl (Fluoxetine HCl) 40 Mg Capsule, 80 MG PO DAILY, (Reported) Entered as Reported by: LILIBETH DOUGLAS on 01/26/19 0349 Last Action: Converted Hydrochlorothiazide (Hydrochlorothiazide) 12.5 Mg Tablet, 12.5 MG PO DAILY, (Reported) Entered as Reported by: DC CANSECO on 11/04/21 08 Last Action: Converted Hydroxyzine HCl (Hydroxyzine HCl) 25 Mg Tablet, 25 MG PO TID PRN for ANXIETY, (Reported) Entered as Reported by: DC CANSECO on 11/04/21834 Last Action: Converted Isosorbide Mononitrate (Isosorbide Mononitrate ER) 60 Mg Tab, 60 MG PO DAILY, (Reported) Entered as Reported by: KEILY JONES on 12/28/21 1042 Last Action: Continued Lisinopril (Lisinopril) 20 Mg Tablet, 20 MG PO BID, (Reported) Entered as Reported by: MADDY DANIELLE on 05/20/19 1324 Last Action: Continued Nitroglycerin (Nitroglycerin) 0.4 Mg Tab.subl, 0.4 MG SL UD PRN for CHEST PAIN, (Reported) Entered as Reported by: KEILY JONES on 12/28/21 104 Last Action: Continued Pantoprazole Sodium (Pantoprazole Sodium) 40 Mg Tablet.dr, 40 MG PO BID Prescribed by: RAHEEM MCWILLIAMS JR, MD on 12/29/21 1221 Pregabalin (Pregabalin) 150 Mg Capsule, 150 MG PO TID, (Reported) Entered as Reported by: DC CANSECO on 11/04/21834 Last Action: Continued Ranolazine (Ranexa) 500 Mg Tab.er.12h, 1,000 MG PO BID Prescribed by: RAHEEM MCWILLIAMS JR, MD on 12/29/21 1221 Tizanidine HCl (Tizanidine HCl) 4 Mg Tablet, 4 MG PO TID PRN for MUSCLE SPASMS, (Reported) Entered as Reported by: KEILY JONES on 12/28/21 1042 Last Action: Continued Discontinued Medications Albuterol Sulfate (Proair Hfa) 1 Puff Puff, 2 PUFF IH Q4H PRN for WHEEZING, (Reported) Discontinued Reason: No Longer Taking Entered as Reported by: MADDY DANIELLE on 02/20/19 1051 Last Action: Discontinued Cyclobenzaprine HCl (Cyclobenzaprine HCl) 10 Mg Tablet, 10 MG PO TID PRN for PAIN-MODERATE (5-7), (Reported) Discontinued Reason: No Longer Taking Entered as Reported by: MEGHAN LEES on 06/28/21 1302 Last Action: Discontinued Fluticasone/Salmeterol (Advair 250-50 Diskus) 1 Each Blst.w.dev, 1 EACH IH BID, (Reported) Discontinued Reason: No Longer Taking Entered as Reported by: MADDY DANIELLE on 02/20/19 1051 Last Action: Discontinued Isosorbide Mononitrate (Isosorbide Mononitrate ER) 60 Mg Tab, 60 MG PO DAILY Discontinued Reason: No Longer Taking Prescribed by: RAHEEM MCWILLIAMS JR, MD on 11/04/21 1003 Last Action: Discontinued Meloxicam (Meloxicam) 15 Mg Tablet, 15 MG PO DAILY, (Reported) Entered as Reported by: MEGHAN LEES on 06/28/21 1302 Last Action: Reviewed Nitroglycerin (Nitroglycerin) 0.4 Mg Tab.subl, 0.4 MG SL NEEDED PRN for CHEST PAIN (ANGINA) Discontinued Reason: No Longer Taking Prescribed by: RAHEEM MCWILLIAMS JR, MD on 11/04/21 1021 Last Action: Discontinued Omeprazole (Omeprazole) 40 Mg Capsule.dr, 40 MG PO DAILY, (Reported) Entered as Reported by: LILIBETH DOUGLAS on 01/26/19 0349 Last Action: Converted Past Zhgyodc-Zxnsuo-Jbekmo Hx Reviewed Nursing Assessment Reviewed/Agree w Nursing PMH: Yes Family Medical History Significant Family History: No Pertinent Family Hx Review of Systems-General Constitutional: No chills, No diaphoresis EENTM: No ear discharge, No hearing loss Respiratory: No cough, No dyspnea on exertion Cardiovascular: chest pain Gastrointestinal: abdominal pain (epigastric); No constipation Genitourinary: No decreased output, No discharge Musculoskeletal: No back pain, No gout Skin: No change in color, No change in hair/nails Psychiatric/Neurological: Denies Anxiety, Denies Depressed All Other Systems Reviewed Negative Unless Noted: Yes (Negative excepted noted.) Physical Exam-General Problems Physical Exam General Appearance: WD/WN, no apparent distress, obese HEENT: PERRL/EOMI, normal ENT inspection Neck: non-tender, normal inspection Respiratory: chest non-tender, no respiratory distress, no accessory muscle use Cardiovascular: regular rate, rhythm, no JVD Gastrointestinal: non tender, soft Back: normal inspection, no CVA tenderness Extremities: non-tender, normal inspection Neurologic/Psychiatric: alert, normal mood/affect, oriented x 3 Skin: normal color, warm/dry Lymphatic: no adenopathy Assessment/Plan Assessment/Plan Assessment/Plan GERD Abdominal pain Chest pain Cardiology saw the pt and increased PPI to BID Had recent endoscopy, if doesn't improve would consider repeating. She is tolerating diet. Wt loss Tobacco cessation Supervisory-Addendum Brief Verification & Attestation Participated in pt care: history, MDM, physical Personally performed: exam, history, MDM, supervision of care Care discussed with: Medical Student Procedures: n/a Results interpretation: Verified all documentation Verification and Attestation of Medical Student E/M Service A medical student performed and documented this service in my presence. I reviewed and verified all information documented by the medical student and made modifications to such information, when appropriate. I personally performed the physical exam and medical decision making. Ran Cantrell, Dec 29, 2021,16:55 LO PEREZ Dec 29, 2021 13:43 RAN CANTRELL DO Dec 29, 2021 16:55
[2021-12-29 16:00] VITALS: BP 113/54
== END 2021-12-29 17:38 | disposition home or self-care (01) ==
LOC: EDUNIT# 02:07 → ER FS 02:09 → 4TH 08:51
PROVIDERS: ADMIT Family Medicine; ATTEND Family Medicine
DX: I25.110 Atherosclerotic heart disease of native coronary artery with unstable angina pectoris (principal); K21.00 Gastro-esophageal reflux disease with esophagitis, without bleeding; E78.2 Mixed hyperlipidemia; I10 Essential (primary) hypertension; F17.210 Nicotine dependence, cigarettes, uncomplicated; Z79.82 Long term (current) use of aspirin; E66.01 Morbid (severe) obesity due to excess calories; Z68.42 Body mass index [BMI] 45.0-49.9, adult
CPT/HCPCS: 36415; 80048; 80053; 80061; 80306; 81000; 83735; 84484 ×2; 85007; 85025; 85027; 93005 ×2; 93041; 94760; 99284; G0378; G0480; 80320

== ENCOUNTER 2022-03-30 20:33 | Emergency (ER) | payer MEDICAID ==
[~2022-03-30] VITALS: Ht 152 cm; Wt 113.0 kg
[~2022-03-30 20:33] MED LIST changes: +ACET-2267 PO; +ALBU8.5H6 IH; +DIPH25TA65 PO; +NITR0.4T39 SL; +PANT40TA52 PO; +RANO500T3 PO; -RT-ALBUINH IH; +TIZA-186 PO
[2022-03-30 20:45] VITALS: BP 157/97
--- NOTE | 2022-03-30 20:54 | ED Abdominal Pain ---
General Stated Complaint: ABD PAIN Source of Information: Patient Exam Limitations: No Limitations History of Present Illness Date Seen by Provider: Mar 30, 2022 Time Seen by Provider: 20:45 Initial Comments 41-year-old female presents for left lower and right upper abdominal pain. Symptoms started about an hour prior to arrival and have been persistent. She has had several similar pains in the past and has had an extensive work-up by her report including upper and lower endoscopy, CT scans. She has had her gallbladder out in case that may be the cause. She continues to have intermittent abdominal pains. She states they happen once or twice a month without warning. She has no changes in bowels and had her last bowel movement j ust couple minutes ago when she was providing urine sample here. No urinary symptoms to include dysuria hematuria or increased frequency. She has had a total abdominal hysterectomy and is no longer having menstrual cycles she denies any nausea vomiting fever chills. She describes her pain as a pressure-like sensation in her left lower abdomen and right upper abdomen without radiation. No aggravating or alleviating factors. No associated symptoms. Moderate. Allergies and Home Medications Allergies Coded Allergies: gabapentin (Verified Allergy, Unknown, 01/25/19) metoclopramide (Unverified Allergy, Unknown, "CAUSES PT TO LOSE CONTROL OF MUSCLES", 01/25/19) Patient Home Medication List Home Medication List Reviewed: Yes Acetaminophen (Tylenol Extra Strength) 500 Mg Tablet, 1,000 MG PO Q8H PRN for PAIN-MILD (1-4), (Reported) Entered as Reported by: KEILY JONES on 12/28/21 1045 Aspirin (Aspirin EC) 81 Mg Tablet.dr, 81 MG PO DAILY, (Reported) Entered as Reported by: DC CANSECO on 11/04/21 0835 Atenolol (Atenolol) 50 Mg Tablet, 50 MG PO BID, (Reported) Entered as Reported by: DC CANSECO on 11/04/21 0835 Atorvastatin Calcium (Atorvastatin Calcium) 10 Mg Tablet, 10 MG PO HS, (Reported) Entered as Reported by: DC CANSECO on 11/04/21 0835 Buspirone HCl (Buspirone HCl) 15 Mg Tablet, 15 MG PO TID, (Reported) Entered as Reported by: DC CANSECO on 11/04/21 0835 Cephalexin (Cephalexin) 500 Mg Tablet, 500 MG PO TID Prescribed by: FADY DOE MD on 03/30/22 2137 Diphenhydramine HCl (Benadryl Allergy) 25 Mg Tablet, 50 MG PO BID, (Reported) Entered as Reported by: KEILY JONES on 12/28/21 1045 Estradiol (Estradiol Tablet) 1 Mg Tablet, 1 MG PO DAILY, (Reported) Entered as Reported by: MADDY DANIELLE on 05/20/19 1327 Ethosuximide (Ethosuximide) 250 Mg Capsule, 250 MG PO HS, (Reported) Entered as Reported by: MADDY DANIELLE on 04/12/16 0942 Fluoxetine HCl (Fluoxetine HCl) 40 Mg Capsule, 80 MG PO DAILY, (Reported) Entered as Reported by: LILIBETH DOUGLAS on 01/26/19 0349 Hydrochlorothiazide (Hydrochlorothiazide) 12.5 Mg Tablet, 12.5 MG PO DAILY, (Reported) Entered as Reported by: DC CANSECO on 11/04/21 0835 Hydroxyzine HCl (Hydroxyzine HCl) 25 Mg Tablet, 25 MG PO TID PRN for ANXIETY, (Reported) Entered as Reported by: DC CANSECO on 11/04/21 0835 Isosorbide Mononitrate (Isosorbide Mononitrate ER) 60 Mg Tab, 60 MG PO DAILY, (Reported) Entered as Reported by: KEILY JONES on 12/28/21 1042 Lisinopril (Lisinopril) 20 Mg Tablet, 20 MG PO BID, (Reported) Entered as Reported by: MADDY DANIELLE on 05/20/19 1324 Nitroglycerin (Nitroglycerin) 0.4 Mg Tab.subl, 0.4 MG SL UD PRN for CHEST PAIN, (Reported) Entered as Reported by: KEILY JONES on 12/28/21 1042 Pantoprazole Sodium (Pantoprazole Sodium) 40 Mg Tablet.dr, 40 MG PO BID Prescribed by: RAHEEM LI JR, MD on 12/29/21 1221 Pregabalin (Pregabalin) 150 Mg Capsule, 150 MG PO TID, (Reported) Entered as Reported by: DC CANSECO on 11/04/21 0835 Ranolazine (Ranexa) 500 Mg Tab.er.12h, 1,000 MG PO BID Prescribed by: RAHEEM LI JR, MD on 12/29/21 1221 Tizanidine HCl (Tizanidine HCl) 4 Mg Tablet, 4 MG PO TID PRN for MUSCLE SPASMS, (Reported) Entered as Reported by: KEILY JONES on 12/28/21 1042 Review of Systems Review of Systems Constitutional: no symptoms reported EENTM: No Symptoms Reported Respiratory: No Symptoms Reported Cardiovascular: No Symptoms Reported Gastrointestinal: Abdominal Pain Genitourinary: No Symptoms Reported Musculoskeletal: no symptoms reported Skin: no symptoms reported Psychiatric/Neurological: No Symptoms Reported Endocrine: No Symptoms Reported Hematologic/Lymphatic: No Symptoms Reported Past Jnsbmic-Aslzwy-Dvsbfj Hx Patient Social History Tobacco Use?: Yes Tobacco type used: Cigarettes Use of E-Cig and/or Vaping dev: No Substance use?: No Alcohol Use?: No Immunizations Up To Date Tetanus Booster (TDap): Unknown First/Initial COVID19 Vaccinat: None Seasonal Allergies Seasonal Allergies: Yes Past Medical History Surgery/Hospitalization HX: HYST, LAP DANIA, x 3, TUBAL, NARCOLEPSY, ANXIETY, COPD, ASTHMA, HTN, MORBID OBESITY Surgeries: Yes (dental extractions, dxls, bmt, 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, LEFT EAR) Section, Ear Surgery, Gallbladder, Hysterectomy, 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 Respiratory: Yes Asthma, COPD Currently Using CPAP: No Currently Using BIPAP: No Cardiac: Yes Heart Murmur, Hypertension, Irregular Heartbeat Neurological: Yes Headaches /Migraines, Seizure Disorder 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 Disorders: Yes Female 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 Disorders: 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, 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 Sexually Transmitted Disease: No Genitourinary: Yes Kidney Stones Gastrointestinal: Yes Colitis, Gastroesophageal Reflux, Diverticulosis, Polyps, Ulcer Musculoskeletal: Yes (spina bifida) Arthritis, Scoliosis, Chronic Back Pain Endocrine: No HEENT: Yes Chronic Ear Infection Hearing Impairment: Denies, Hard of Hearing Cancer: No Psychosocial: Yes Anxiety, Depression Integumentary: No Blood Disorders: No Family Medical History Reviewed Nursing Family Hx No Pertinent Family Hx Physical Exam Vital Signs Vital Signs - First Documented 03/30/22 20:45 Temp 36.0 Pulse 78 Resp 16 B/P (MAP) 157/97 (117) Capillary Refill : Height/Weight/BMI Height: 5'0" Weight: 235lbs. 0oz. [id number]; 48.05 BMI Method:Stated General Appearance: WD/WN, no apparent distress HEENT: normal ENT inspection, pharynx normal Neck: non-tender, full range of motion, supple, normal inspection Respiratory: chest non-tender, lungs clear, normal breath sounds, no respiratory distress, no accessory muscle use Cardiovascular: regular rate, rhythm, no edema, no gallop, no JVD, no murmur Gastrointestinal: normal bowel sounds, soft, no organomegaly, no pulsatile mas s, tenderness (Tenderness palpation with even light touch of the skin of the right upper quadrant and left lower abdomen. No rebound or guarding. No mass organomegaly. No skin changes.) Extremities: normal range of motion, non-tender, normal inspection, no pedal edema, no calf tenderness, normal capillary refill Back: normal inspection, no CVA tenderness, no vertebral tenderness Neurologic/Psychiatric: alert, normal mood/affect, oriented x 3 Skin: normal color, warm/dry Lymphatic: no adenopathy Progress/Results/Core Measures Results/Orders Lab Results Laboratory Tests Test 03/30/22 20:46 03/30/22 21:05 Range/Units Urine Color YELLOW Urine Clarity SL CLOUDY Urine pH 5.5 5-9 Urine Specific [place] 1.020 1.016-1.022 Urine Protein NEGATIVE NEGATIVE Urine Glucose (UA) NEGATIVE NEGATIVE Urine Ketones NEGATIVE NEGATIVE Urine Nitrite NEGATIVE NEGATIVE Urine Bilirubin NEGATIVE NEGATIVE Urine Urobilinogen 0.2 < = 1.0 MG/DL Urine Leukocyte Esterase TRACE H NEGATIVE Urine RBC (Auto) TRACE-I H NEGATIVE Urine RBC 0-2 /HPF Urine WBC 10-25 H /HPF Urine Squamous Epithelial Cells 0-2 /HPF Urine Crystals NONE /LPF Urine Bacteria FEW H /HPF Urine Casts NONE /LPF Urine Mucus NEGATIVE /LPF Urine Culture Indicated YES White Blood Count 14.5 H 4.3-11.0 10^3/uL Red Blood Count 4.18 3.80-5.11 10^6/uL Hemoglobin 12.4 11.5-16.0 g/dL Hematocrit 37 35-52 % Mean Corpuscular Volume 88 80-99 fL Mean Corpuscular Hemoglobin 30 25-34 pg Mean Corpuscular Hemoglobin Concent 34 32-36 g/dL Red Cell Distribution Width 14.1 10.0-14.5 % Platelet Count 374 130-400 10^3/uL Mean Platelet Volume 9.9 9.0-12.2 fL Immature Granulocyte % (Auto) 1 % Neutrophils (%) (Auto) 64 42-75 % Lymphocytes (%) (Auto) 30 12-44 % Monocytes (%) (Auto) 4 0-12 % Eosinophils (%) (Auto) 2 0-10 % Basophils (%) (Auto) 0 0-10 % Neutrophils # (Auto) 9.4 H 1.8-7.8 10^3/uL Lymphocytes # (Auto) 4.3 H 1.0-4.0 10^3/uL Monocytes # (Auto) 0.6 0.0-1.0 10^3/uL Eosinophils # (Auto) 0.2 0.0-0.3 10^3/uL Basophils # (Auto) 0.0 0.0-0.1 10^3/uL Immature Granulocyte # (Auto) 0.1 0.0-0.1 10^3/uL Neutrophils % (Manual) 63 % Lymphocytes % (Manual) 30 % Monocytes % (Manual) 3 % Eosinophils % (Manual) 1 % Band Neutrophils 3 % Platelet Estimate NORMAL Blood Morphology Comment NORMAL Sodium Level 141 135-145 MMOL/L Potassium Level 3.4 L 3.6-5.0 MMOL/L Chloride Level 99 98-107 MMOL/L Carbon Dioxide Level 29 21-32 MMOL/L Anion Gap 13 5-14 MMOL/L Blood Urea Nitrogen 12 7-18 MG/DL Creatinine 0.91 0.60-1.30 MG/DL Estimat Glomerular Filtration Rate 81 BUN/Creatinine Ratio 13 Glucose Level 104 70-105 MG/DL Calcium Level 9.3 8.5-10.1 MG/DL Corrected Calcium 9.2 8.5-10.1 MG/DL Total Bilirubin 0.2 0.1-1.0 MG/DL Aspartate Amino Transf (AST/SGOT) 30 5-34 U/L Alanine Aminotransferase (ALT/SGPT) 12 0-55 U/L Alkaline Phosphatase 127 40-136 U/L Total Protein 7.6 6.4-8.2 GM/DL Albumin 4.1 3.2-4.5 GM/DL Lipase 41 8-78 U/L Micro Results Microbiology 11/16/22 Urine Culture - Final, Complete Mixed Bacterial Sofi See Comments My Orders Orders - FADY DOE DO Ua Culture If Indicated (03/30/22 20:49) Cbc With Automated Diff (03/30/22 20:49) Comprehensive Metabolic Panel (03/30/22 20:49) Lipase (03/30/22 20:49) Urine Culture (03/30/22 20:46) Manual Differential (03/30/22 21:05) Cephalexin Capsule (Keflex Capsule) (03/30/22 21:35) Vital Signs/I&O 03/30/22 20:45 Temp 36.0 Pulse 78 Resp 16 B/P (MAP) 157/97 (117) Departure Communication (Admissions) Patient is hemodynamically stable with a nonsurgical exam. No indication of pancreatitis. Consideration for CT scanning however given the chronicity of this pain and it may be exactly the same as previous episodes when she has had a CT scan that was negative I do not believe is warranted at this time. She is discharged home in stable condition with recommendation to follow-up with her primary care doctor for further evaluation and treatment of her chronic pain. Impression Primary Impression: Chronic abdominal pain Additional Impression: UTI (urinary tract infection) Qualified Codes: N30.00 - Acute cystitis without hematuria Disposition: HOME, SELF-CARE Condition: Stable Departure-Patient Inst. Referrals: MAYKEL CUMMINS APRN (PCP) Primary Care Physician [facility]/JENNIFER (Family) Primary Care Physician Patient Instructions: Chronic Pain (DC), Urinary Tract Infection, Adult ED Add. Discharge Instructions: Use home medicines as needed for pain. Take the antibiotics as prescribed for urinary tract infection. Return to the emergency department for any severe concerns. Follow-up with your primary doctor for any nonemergent needs Scripts Cephalexin (Cephalexin) 500 Mg Tablet 500 MG PO TID for 5 Days, #15 TAB Prov: FADY DOE DO 03/30/22 FADY DOE DO Mar 30, 2022 20:54
[2022-03-30 21:21] LABS: BILIRUBIN,URINE NEGATIVE (NEGATIVE); CLARITY,URINE SL CLOUDY; COLOR,URINE YELLOW; GLUCOSE, URINE (UA) NEGATIVE (NEGATIVE); KETONES,URINE NEGATIVE (NEGATIVE); LEUKOCYTE ESTERASE ,URINE TRACE (NEGATIVE); NITRITE,URINE NEGATIVE (NEGATIVE); PH,URINE 5.5 (5-9); PROTEIN,URINE NEGATIVE (NEGATIVE)
[2022-03-30 21:23] LABS: BACTERIA,URINE FEW /HPF; RBC,URINE 0-2 /HPF; SQUAMOUS EPITHELIAL CELL,UR 0-2 /HPF
[2022-03-30 21:23] LABS: BASOPHILS % (AUTO) 0 % (0-10); EOSINOPHILS # (AUTO) 0.2 10^3/uL (0.0-0.3); EOSINOPHILS % (AUTO) 2 % (0-10); HEMATOCRIT 37 % (35-52); HEMOGLOBIN 12.4 g/dL (11.5-16.0); LYMPHOCYTES # (AUTO) 4.3 10^3/uL (1.0-4.0); LYMPHOCYTES % (AUTO) 30 % (12-44); MEAN CORPUSCULAR HEMOGLOBIN 30 pg (25-34); MEAN CORPUSCULAR HGB CONC 34 g/dL (32-36); MEAN CORPUSCULAR VOLUME 88 fL (80-99); MEAN PLATELET VOLUME 9.9 fL (9.0-12.2); MONOCYTES # (AUTO) 0.6 10^3/uL (0.0-1.0); MONOCYTES % (AUTO) 4 % (0-12); NEUTROPHILS # (AUTO) 9.4 10^3/uL (1.8-7.8); NEUTROPHILS % (AUTO) 64 % (42-75); PLATELET COUNT 374 10^3/uL (130-400); WHITE BLOOD COUNT 14.5 10^3/uL (4.3-11.0)
[2022-03-30 21:34] LABS: POTASSIUM 3.4 MMOL/L (3.6-5.0)
[2022-03-30 21:35] LABS: ALBUMIN 4.1 GM/DL (3.2-4.5); BILIRUBIN,TOTAL 0.2 MG/DL (0.1-1.0); CALCIUM 9.3 MG/DL (8.5-10.1); CREATININE SERUM 0.91 MG/DL (0.60-1.30); TOTAL PROTEIN 7.6 GM/DL (6.4-8.2)
[2022-03-30] MEDS ORDERED: CEPHALEXIN 250 MG (KEFLEX) CAP PO STA (21:35)
[2022-03-30] MEDS ORDERED: CEPH500T PO (21:37)
[2022-03-30 21:43] LABS: BAND NEUTROPHILS 3 %; EOSINOPHILS % (MANUAL) 1 %; LYMPHOCYTES % (MANUAL) 30 %; MONOCYTES % (MANUAL) 3 %; NEUTROPHILS % (MANUAL) 63 %; PLATELET ESTIMATE NORMAL; RBC MORPH NORMAL
== END 2022-03-30 21:51 | disposition home or self-care (01) ==
LOC: EDUNIT# 20:33 → ER FS 20:34
DX: R10.11 Right upper quadrant pain (principal); G89.29 Other chronic pain; N39.0 Urinary tract infection, site not specified; F17.210 Nicotine dependence, cigarettes, uncomplicated; E66.01 Morbid (severe) obesity due to excess calories; Z68.42 Body mass index [BMI] 45.0-49.9, adult; Z87.442 Personal history of urinary calculi; Z87.19 Personal history of other diseases of the digestive system; Z98.890 Other specified postprocedural states
CPT/HCPCS: 36415; 80053; 81000; 83690; 85007; 85027; 87088; 99283

== ENCOUNTER 2022-04-15 09:16 | Emergency (ER) | payer MEDICAID ==
[~2022-04-15] VITALS: Ht 152.4 cm; Wt 188.4 kg
[~2022-04-15 09:16] MED LIST changes: +CEPH500T PO
[2022-04-15 09:27] VITALS: BP 144/82
--- NOTE | 2022-04-15 09:28 | ED General ---
General Chief Complaint: General Problems/Pain Stated Complaint: LOW BP; LETHARGY History of Present Illness Date Seen by Provider: Apr 15, 2022 Time Seen by Provider: 09:28 Initial Comments 41-year-old female with PMH of HTN/anxiety/depression/SZD/GERD/bowel blockage, patient is unsure which valve, is here with complaints of low blood pressure at home and feeling tired and lethargic since today morning. Patient's blood pressure at home was 90/60. In the ER patient's blood pressure has been stable and ranging between systolic of 1 30-1 40s. Patient also complains of retrosternal chest pressure which started today morning. Patient did not have breakfast today morning and did not have anything to drink. Denies abdominal pain, fever, nausea and vomiting, diarrhea. Her grand kids have influenza A. Allergies and Home Medications Allergies Coded Allergies: gabapentin (Verified Allergy, Unknown, 01/25/19) metoclopramide (Unverified Allergy, Unknown, "CAUSES PT TO LOSE CONTROL OF MUSCLES", 01/25/19) Patient Home Medication List Home Medication List Reviewed: Yes Acetaminophen (Tylenol Extra Strength) 500 Mg Tablet, 1,000 MG PO Q8H PRN for PAIN-MILD (1-4), (Reported) Entered as Reported by: KEILY JONES on 12/28/21 1045 Aspirin (Aspirin EC) 81 Mg Tablet.dr, 81 MG PO DAILY, (Reported) Entered as Reported by: DC CANSECO on 11/04/21 0835 Atenolol (Atenolol) 50 Mg Tablet, 50 MG PO BID, (Reported) Entered as Reported by: DC CANSECO on 11/04/21 0835 Atorvastatin Calcium (Atorvastatin Calcium) 10 Mg Tablet, 10 MG PO HS, (Reported) Entered as Reported by: DC CANSECO on 11/04/21 0835 Buspirone HCl (Buspirone HCl) 15 Mg Tablet, 15 MG PO TID, (Reported) Entered as Reported by: DC CANSECO on 11/04/21 0835 Cephalexin (Cephalexin) 500 Mg Tablet, 500 MG PO TID Prescribed by: FADY DOE MD on 03/30/222136 Diphenhydramine HCl (Benadryl Allergy) 25 Mg Tablet, 50 MG PO BID, (Reported) Entered as Reported by: KEILY JONES on 12/28/21 1045 Estradiol (Estradiol Tablet) 1 Mg Tablet, 1 MG PO DAILY, (Reported) Entered as Reported by: MADDY DANIELLE on 05/20/19 1327 Ethosuximide (Ethosuximide) 250 Mg Capsule, 250 MG PO HS, (Reported) Entered as Reported by: MADDY DANIELLE on 04/12/16 0942 Fluoxetine HCl (Fluoxetine HCl) 40 Mg Capsule, 80 MG PO DAILY, (Reported) Entered as Reported by: LILIBETH DOUGLAS on 01/26/19 0349 Hydrochlorothiazide (Hydrochlorothiazide) 12.5 Mg Tablet, 12.5 MG PO DAILY, (Reported) Entered as Reported by: DC CANSECO on 11/04/21 0835 Hydroxyzine HCl (Hydroxyzine HCl) 25 Mg Tablet, 25 MG PO TID PRN for ANXIETY, (Reported) Entered as Reported by: DC CANSECO on 11/04/21 0835 Isosorbide Mononitrate (Isosorbide Mononitrate ER) 60 Mg Tab, 60 MG PO DAILY, (Reported) Entered as Reported by: KEILY JONES on 12/28/21 1042 Lisinopril (Lisinopril) 20 Mg Tablet, 20 MG PO BID, (Reported) Entered as Reported by: MADDY DANIELLE on 05/20/19 1324 Nitroglycerin (Nitroglycerin) 0.4 Mg Tab.subl, 0.4 MG SL UD PRN for CHEST PAIN, (Reported) Entered as Reported by: KEILY JONES on 12/28/21 1042 Pantoprazole Sodium (Pantoprazole Sodium) 40 Mg Tablet.dr, 40 MG PO BID Prescribed by: RAHEEM LI JR, MD on 12/29/21 1221 Pregabalin (Pregabalin) 150 Mg Capsule, 150 MG PO TID, (Reported) Entered as Reported by: DC CANSECO on 11/04/21 0835 Ranolazine (Ranexa) 500 Mg Tab.er.12h, 1,000 MG PO BID Prescribed by: RAHEEM LI JR, MD on 12/29/21 1221 Tizanidine HCl (Tizanidine HCl) 4 Mg Tablet, 4 MG PO TID PRN for MUSCLE SPASMS, (Reported) Entered as Reported by: KEILY JONES on 12/28/21 1042 Review of Systems Review of Systems Constitutional: malaise EENTM: no symptoms reported Respiratory: no symptoms reported Cardiovascular: chest pain Gastrointestinal: no symptoms reported Genitourinary: no symptoms reported Musculoskeletal: no symptoms reported Skin: no symptoms reported Psychiatric/Neurological: No Symptoms Reported Hematologic/Lymphatic: No Symptoms Reported Immunological/Allergic: no symptoms reported Past Msyelii-Iasovd-Ujftse Hx Immunizations Up To Date Tetanus Booster (TDap): Unknown First/Initial COVID19 Vaccinat: None Second COVID19 Vaccination Suhas: None Third COVID19 Vaccination Date: None Seasonal Allergies Seasonal Allergies: Yes Past Medical History Surgery/Hospitalization HX: HYST, LAP DANIA, x 3, TUBAL, NARCOLEPSY, ANXIETY, COPD, ASTHMA, HTN, MORBID OBESITY Surgeries: Yes (dental extractions, dxls, bmt, 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, LEFT EAR) Section, Ear Surgery, Gallbladder, Hysterectomy, 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 Respiratory: Yes Asthma, COPD Currently Using CPAP: No Currently Using BIPAP: No Cardiac: Yes Heart Murmur, Hypertension, Irregular Heartbeat Neurological: Yes Headaches /Migraines, Seizure Disorder 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 Disorders: Yes Female 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 Disorders: 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, 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 Sexually Transmitted Disease: No Genitourinary: Yes Kidney Stones Gastrointestinal: Yes Colitis, Gastroesophageal Reflux, Diverticulosis, Polyps, Ulcer Musculoskeletal: Yes (spina bifida) Arthritis, Scoliosis, Chronic Back Pain Endocrine: No HEENT: Yes Chronic Ear Infection Hearing Impairment: Denies, Hard of Hearing Cancer: No Psychosocial: Yes Anxiety, Depression Integumentary: No Blood Disorders: No Family Medical History No Pertinent Family Hx Physical Exam Vital Signs Vital Signs - First Documented 04/15/22 09:27 Temp 36.8 Pulse 69 Resp 16 B/P (MAP) 144/82 (102) Pulse Ox 97 O2 Delivery Room Air Capillary Refill : Height, Weight, BMI Height: 5'0" Weight: 235lbs. 0oz. 106.499940kq; 48.00 BMI Method:Stated General Appearance: No Apparent Distress, WD/WN, Obese HEENT: PERRL/EOMI, Pharynx Normal Neck: Full Range of Motion, Normal Inspection, Non Tender, Supple Respiratory: Chest Non Tender, Lungs Clear, Normal Breath Sounds, No Accessory Muscle Use, No Respiratory Distress Cardiovascular: Regular Rate, Rhythm, No Edema Gastrointestinal: Normal Bowel Sounds, Non Tender, Soft Extremity: Normal Range of Motion Neurologic/Psychiatric: Alert, Oriented x3, No Motor/Sensory Deficits Skin: Normal Color Progress/Results/Core Measures Suspected Sepsis SIRS Temperature: Pulse: Respiratory Rate: Laboratory Tests 04/15/22 10:30: White Blood Count 11.1H Blood Pressure / Mean: Laboratory Tests 04/15/22 10:30: Creatinine 0.89, INR Comment 0.9, Platelet Count 304, Total Bilirubin 0.5 Results/Orders Lab Results Laboratory Tests Test 04/15/22 09:27 04/15/22 09:44 04/15/22 10:30 Range/Units Urine Color YELLOW Urine Clarity SL CLOUDY Urine pH 5.5 5-9 Urine Specific [place] 1.020 1.016-1.022 Urine Protein NEGATIVE NEGATIVE Urine Glucose (UA) NEGATIVE NEGATIVE Urine Ketones NEGATIVE NEGATIVE Urine Nitrite NEGATIVE NEGATIVE Urine Bilirubin NEGATIVE NEGATIVE Urine Urobilinogen 0.2 < = 1.0 MG/DL Urine Leukocyte Esterase NEGATIVE NEGATIVE Urine RBC (Auto) NEGATIVE NEGATIVE Urine RBC NONE /HPF Urine WBC 0-2 /HPF Urine Squamous Epithelial Cells 2-5 /HPF Urine Crystals NONE /LPF Urine Bacteria NEGATIVE /HPF Urine Casts NONE /LPF Urine Mucus NEGATIVE /LPF Urine Culture Indicated NO Urine Opiates Screen NEGATIVE NEGATIVE Urine Oxycodone Screen NEGATIVE NEGATIVE Urine Methadone Screen NEGATIVE NEGATIVE Urine Propoxyphene Screen NEGATIVE NEGATIVE Urine Barbiturates Screen NEGATIVE NEGATIVE Ur Tricyclic Antidepressants Screen NEGATIVE NEGATIVE Urine Phencyclidine Screen NEGATIVE NEGATIVE Urine Amphetamines Screen NEGATIVE NEGATIVE Urine Methamphetamines Screen NEGATIVE NEGATIVE Urine Benzodiazepines Screen NEGATIVE NEGATIVE Urine Cocaine Screen NEGATIVE NEGATIVE Urine Cannabinoids Screen NEGATIVE NEGATIVE Influenza Type A (RT-PCR) Not Detected Not Detecte Influenza Type B (RT-PCR) Not Detected Not Detecte SARS-CoV-2 RNA (RT-PCR) Not Detected Not Detecte White Blood Count 11.1 H 4.3-11.0 10^3/uL Red Blood Count 4.03 3.80-5.11 10^6/uL Hemoglobin 11.9 11.5-16.0 g/dL Hematocrit 36 35-52 % Mean Corpuscular Volume 88 80-99 fL Mean Corpuscular Hemoglobin 30 25-34 pg Mean Corpuscular Hemoglobin Concent 34 32-36 g/dL Red Cell Distribution Width 14.1 10.0-14.5 % Platelet Count 304 130-400 10^3/uL Mean Platelet Volume 10.0 9.0-12.2 fL Immature Granulocyte % (Auto) 0 % Neutrophils (%) (Auto) 62 42-75 % Lymphocytes (%) (Auto) 32 12-44 % Monocytes (%) (Auto) 4 0-12 % Eosinophils (%) (Auto) 2 0-10 % Basophils (%) (Auto) 1 0-10 % Neutrophils # (Auto) 6.9 1.8-7.8 10^3/uL Lymphocytes # (Auto) 3.5 1.0-4.0 10^3/uL Monocytes # (Auto) 0.4 0.0-1.0 10^3/uL Eosinophils # (Auto) 0.2 0.0-0.3 10^3/uL Basophils # (Auto) 0.1 0.0-0.1 10^3/uL Immature Granulocyte # (Auto) 0.0 0.0-0.1 10^3/uL Prothrombin Time 12.9 12.2-14.7 SEC INR Comment 0.9 0.8-1.4 Activated Partial Thromboplast Time 27 24-35 SEC D-Dimer 0.35 0.00-0.49 UG/ML Sodium Level 139 135-145 MMOL/L Potassium Level 3.9 3.6-5.0 MMOL/L Chloride Level 104 98-107 MMOL/L Carbon Dioxide Level 25 21-32 MMOL/L Anion Gap 10 5-14 MMOL/L Blood Urea Nitrogen 14 7-18 MG/DL Creatinine 0.89 0.60-1.30 MG/DL Estimat Glomerular Filtration Rate 83 BUN/Creatinine Ratio 16 Glucose Level 99 70-105 MG/DL Calcium Level 8.9 8.5-10.1 MG/DL Corrected Calcium 8.7 8.5-10.1 MG/DL Magnesium Level 1.8 1.6-2.4 MG/DL Total Bilirubin 0.5 0.1-1.0 MG/DL Aspartate Amino Transf (AST/SGOT) 39 H 5-34 U/L Alanine Aminotransferase (ALT/SGPT) 19 0-55 U/L Alkaline Phosphatase 124 40-136 U/L Troponin I < 0.30 <0.30 NG/ML Pro-B-Type Natriuretic Peptide 194.1 H <125.0 PG/ML Total Protein 7.5 6.4-8.2 GM/DL Albumin 4.3 3.2-4.5 GM/DL My Orders Orders - VIANEY ANGLIN MD Covid 19 Inhouse Test (04/15/22 09:40) Influenza A And B By Pcr (04/15/22 09:40) Aspirin Chewable Tablet (Baby Aspirin Ch (04/15/22 10:15) Cbc With Automated Diff (04/15/22 10:12) Comprehensive Metabolic Panel (04/15/22 10:12) Fibrin Degradation Products (04/15/22 10:12) Drug Screen Stat (Urine) (04/15/22 10:12) Magnesium (04/15/22 10:12) Protime With Inr (04/15/22 10:12) Partial Thromboplastin Time (04/15/22 10:12) Ua Culture If Indicated (04/15/22 10:12) Probnp Fs (04/15/22 10:12) Troponin I Fs (04/15/22 10:12) Chest 1 View Ap/Pa Only (04/15/22 10:13) Ekg Tracing (04/15/22 10:13) Continuous Ekg Monitoring (04/15/22 10:13) Medications Given in ED Current Medications Medications Dose Ordered Sig/Brissa Route Start Time Stop Time Status Last Admin Dose Admin Aspirin 243 mg ONCE ONCE PO 04/15/22 10:15 04/15/22 10:16 DC 04/15/22 10:21 243 MG Vital Signs/I&O 04/15/22 09:27 Temp 36.8 Pulse 69 Resp 16 B/P (MAP) 144/82 (102) Pulse Ox 97 O2 Delivery Room Air Capillary Refill : Progress Note : Progress Note 1. ACUTE GERD EXACERBATION: - CXR: normal - EKG/ troponin: non-ischemic - Labs unremarkable - UA/ UDS: neg - ASA 243mg, pt took 81 mg at home - Pepcid 20mg STAT & Maalox - COVID test and Rapid Flu test: negative - Follow up with PCP in 3 to 7 days -The patient was seen in the ED, and treated appropriately to presentation at a specific point in time. Patient is informed that there is a possibility that disease and illness can evolve and change in acuity rapidly or slowly after patient is discharged from the ER. Precautionary advice given to the patient for immediate return to ER if symptoms worsen or do not resolve, and to seek emergency care sooner rather than later. Pt also advised on the importance of PCP follow up and compliance with management and follow up plan with PCP and/or specialist, as this is part of the management plan. Pt verbally expressed understanding. Departure Impression Primary Impression: GERD (gastroesophageal reflux disease) Qualified Codes: K21.9 - Gastro-esophageal reflux disease without esophagitis Disposition: HOME, SELF-CARE Condition: Stable Departure-Patient Inst. Referrals: MAYKEL CUMMINS APRN (PCP) Primary Care Physician [facility]/JENNIFER (Family) Primary Care Physician Patient Instructions: Acid Reflux and Gastroesophageal Reflux Disease in Adults Add. Discharge Instructions: - Pepcid 20mg daily & Maalox, over the counter - COVID test and Rapid Flu test: negative - Follow up with PCP in 3 to 7 days All discharge instructions reviewed with patient and/or family. Voiced understanding. VIANEY ANGLIN MD Apr 15, 2022 09:28
[2022-04-15] MEDS ORDERED: ASPIRIN 81 MG CHEW (CHILDREN'S ASA) PO ONE (10:15)
[2022-04-15 10:25] LABS: BILIRUBIN,URINE NEGATIVE (NEGATIVE); CLARITY,URINE SL CLOUDY; COLOR,URINE YELLOW; GLUCOSE, URINE (UA) NEGATIVE (NEGATIVE); KETONES,URINE NEGATIVE (NEGATIVE); LEUKOCYTE ESTERASE ,URINE NEGATIVE (NEGATIVE); NITRITE,URINE NEGATIVE (NEGATIVE); PH,URINE 5.5 (5-9); PROTEIN,URINE NEGATIVE (NEGATIVE)
[2022-04-15 10:36] LABS: BASOPHILS # (AUTO) 0.1 10^3/uL (0.0-0.1); BASOPHILS % (AUTO) 1 % (0-10); EOSINOPHILS # (AUTO) 0.2 10^3/uL (0.0-0.3); EOSINOPHILS % (AUTO) 2 % (0-10); HEMATOCRIT 36 % (35-52); HEMOGLOBIN 11.9 g/dL (11.5-16.0); LYMPHOCYTES # (AUTO) 3.5 10^3/uL (1.0-4.0); LYMPHOCYTES % (AUTO) 32 % (12-44); MEAN CORPUSCULAR HEMOGLOBIN 30 pg (25-34); MEAN CORPUSCULAR HGB CONC 34 g/dL (32-36); MEAN CORPUSCULAR VOLUME 88 fL (80-99); MONOCYTES # (AUTO) 0.4 10^3/uL (0.0-1.0); MONOCYTES % (AUTO) 4 % (0-12); NEUTROPHILS # (AUTO) 6.9 10^3/uL (1.8-7.8); NEUTROPHILS % (AUTO) 62 % (42-75); PLATELET COUNT 304 10^3/uL (130-400); WHITE BLOOD COUNT 11.1 10^3/uL (4.3-11.0)
--- NOTE | 2022-04-15 10:37 | Diagnostic Imaging Report ---
INDICATION: Low blood pressure and chest pain. Time of Exam: 10:25 AM Correlation is made with prior chest from 07/26/2021. FINDINGS: The heart size is normal. The pulmonary vascularity is unremarkable. The lungs are clear. No infiltrate, effusion or pneumothorax is detected. IMPRESSION: No acute cardiopulmonary process is detected. Dictated by: Dictated on workstation # [id number]
[2022-04-15 10:46] LABS: BACTERIA,URINE NEGATIVE /HPF; WBC,URINE 0-2 /HPF
[2022-04-15 10:51] LABS: AMPHETAMINE SCREEN, URINE NEGATIVE (NEGATIVE); BARBITURATE SCREEN URINE NEGATIVE (NEGATIVE); BENZODIAZEPINES SCREEN URINE NEGATIVE (NEGATIVE); CANNABINOID SCREEN, URINE NEGATIVE (NEGATIVE); COCAINE SCREEN URINE NEGATIVE (NEGATIVE); METHADONE STAT NEGATIVE (NEGATIVE); OPIATE SCREEN URINE NEGATIVE (NEGATIVE); OXYCODONE STAT NEGATIVE (NEGATIVE); PROPOXYPHENE STAT NEGATIVE (NEGATIVE); TRICYCLIC ANTIDEPRESSANTS SCRE NEGATIVE (NEGATIVE)
[2022-04-15 11:17] LABS: FIBRIN DEGRADATION PRODUCTS 0.35 UG/ML (0.00-0.49); INR 0.9 (0.8-1.4); PROTHROMBIN TIME PATIENT 12.9 SEC (12.2-14.7)
[2022-04-15 11:19] LABS: SODIUM 139 MMOL/L (135-145)
[2022-04-15 11:20] LABS: ALANINE AMINOTRANSFERASE 19 U/L (0-55); ALKALINE PHOSPHATASE 124 U/L (40-136); BILIRUBIN,TOTAL 0.5 MG/DL (0.1-1.0); BUN/CREATININE RATIO 16; CALCIUM 8.9 MG/DL (8.5-10.1); CARBON DIOXIDE 25 MMOL/L (21-32); CHLORIDE 104 MMOL/L (98-107); CREATININE SERUM 0.89 MG/DL (0.60-1.30); GFR ESTIMATED 83; GLUCOSE 99 MG/DL (70-105); MAGNESIUM 1.8 MG/DL (1.6-2.4); POTASSIUM 3.9 MMOL/L (3.6-5.0)
[2022-04-15 11:21] LABS: ALBUMIN 4.3 GM/DL (3.2-4.5); TOTAL PROTEIN 7.5 GM/DL (6.4-8.2)
[2022-04-15] MEDS ORDERED: FAMOTIDINE 20 MG (PEPCID) TABLET PO ONE (12:15)
[2022-04-15] MEDS ORDERED: ANTACID SUSP 30 ML UDC (MYLANTA) PO ONE (12:15)
== END 2022-04-15 12:24 | disposition home or self-care (01) ==
LOC: EDUNIT# 09:16 → ER FS 09:17
DX: K21.9 Gastro-esophageal reflux disease without esophagitis (principal); E66.01 Morbid (severe) obesity due to excess calories; F17.210 Nicotine dependence, cigarettes, uncomplicated; Z68.42 Body mass index [BMI] 45.0-49.9, adult; Z20.822 Contact with and (suspected) exposure to COVID-19; Z28.310 Unvaccinated for COVID-19
CPT/HCPCS: 36415; 71045; 80053; 80306; 81000; 83735; 83880; 84484; 85025; 85379; 85610; 85730; 87636; 93005; 93041

== ENCOUNTER 2022-05-03 09:26 | Emergency (ER) | payer MEDICAID ==
[~2022-05-03] VITALS: Ht 152.4 cm; Wt 111.1 kg
[2022-05-03 09:33] VITALS: BP 172/97
--- NOTE | 2022-05-03 09:54 | ED GI ---
General Chief Complaint: Abdominal/GI Problems Stated Complaint: N/V; DIARRHEA; GEN WEAKNESS Nursing Triage Note: Patient reports she has had nausea/vomiting/diarrhea and generalized weakness since 0200 this morning. Source of Information: Patient Exam Limitations: No Limitations History of Present Illness Date Seen by Provider: May 03, 2022 Time Seen by Provider: 09:39 Initial Comments 41-year-old female with past medical history most notably for GERD, anxiety, HTN, and chronic abdominal pain coming in due to roughly 8 hours of nonbloody nonbilious vomiting as well as nonbloody diarrhea. Having some cramping with the vomiting, better after vomiting with no significant pain at rest or right now. Denies any fever, has had some cough, is unsure if anyone around her has been sick. Denies any chest pain, shortness of breath, focal weakness or numbness, dysuria, hematuria, headache, vision changes, neck stiffness, or any other concerns. Allergies and Home Medications Allergies Coded Allergies: gabapentin (Verified Allergy, Unknown, 01/25/19) metoclopramide (Unverified Allergy, Unknown, "CAUSES PT TO LOSE CONTROL OF MUSCLES", 01/25/19) Patient Home Medication List Home Medication List Reviewed: Yes Acetaminophen (Tylenol Extra Strength) 500 Mg Tablet, 1,000 MG PO Q8H PRN for PAIN-MILD (1-4), (Reported) Entered as Reported by: KEILY JONES on 12/28/21 1045 Aspirin (Aspirin EC) 81 Mg Tablet.dr, 81 MG PO DAILY, (Reported) Entered as Reported by: DC CANSECO on 11/04/21 0835 Atenolol (Atenolol) 50 Mg Tablet, 50 MG PO BID, (Reported) Entered as Reported by: DC CANSECO on 11/04/21 0835 Atorvastatin Calcium (Atorvastatin Calcium) 10 Mg Tablet, 10 MG PO HS, (Reported) Entered as Reported by: DC CANSECO on 11/04/21 0835 Buspirone HCl (Buspirone HCl) 15 Mg Tablet, 15 MG PO TID, (Reported) Entered as Reported by: DC CANSECO on 11/04/21 0835 Cephalexin (Cephalexin) 500 Mg Tablet, 500 MG PO TID Prescribed by: FADY DOE MD on 11/16/22 2137 Diphenhydramine HCl (Benadryl Allergy) 25 Mg Tablet, 50 MG PO BID, (Reported) Entered as Reported by: KEILY JONES on 12/28/21 1045 Estradiol (Estradiol Tablet) 1 Mg Tablet, 1 MG PO DAILY, (Reported) Entered as Reported by: MADDY DANIELLE on 05/20/19 1327 Ethosuximide (Ethosuximide) 250 Mg Capsule, 250 MG PO HS, (Reported) Entered as Reported by: MADDY DANIELLE on 04/12/16 0942 Fluoxetine HCl (Fluoxetine HCl) 40 Mg Capsule, 80 MG PO DAILY, (Reported) Entered as Reported by: LILIBETH DOUGLAS on 01/26/19 0349 Hydrochlorothiazide (Hydrochlorothiazide) 12.5 Mg Tablet, 12.5 MG PO DAILY, (Reported) Entered as Reported by: DC CANSECO on 11/04/21 0835 Hydroxyzine HCl (Hydroxyzine HCl) 25 Mg Tablet, 25 MG PO TID PRN for ANXIETY, (Reported) Entered as Reported by: DC CANSECO on 11/04/21 0835 Isosorbide Mononitrate (Isosorbide Mononitrate ER) 60 Mg Tab, 60 MG PO DAILY, (Reported) Entered as Reported by: KEILY JONES on 12/28/21 1042 Lisinopril (Lisinopril) 20 Mg Tablet, 20 MG PO BID, (Reported) Entered as Reported by: MADDY DANIELLE on 05/20/19 1324 Nitroglycerin (Nitroglycerin) 0.4 Mg Tab.subl, 0.4 MG SL UD PRN for CHEST PAIN, (Reported) Entered as Reported by: KEILY JONES on 12/28/21 1042 Pantoprazole Sodium (Pantoprazole Sodium) 40 Mg Tablet.dr, 40 MG PO BID Prescribed by: RAHEEM LI JR, MD on 12/29/21 1221 Pregabalin (Pregabalin) 150 Mg Capsule, 150 MG PO TID, (Reported) Entered as Reported by: DC CANSECO on 11/04/21 0835 Ranolazine (Ranexa) 500 Mg Tab.er.12h, 1,000 MG PO BID Prescribed by: RAHEEM LI JR, MD on 12/29/21 1221 Tizanidine HCl (Tizanidine HCl) 4 Mg Tablet, 4 MG PO TID PRN for MUSCLE SPASMS, (Reported) Entered as Reported by: KEILY JONES on 12/28/21 1042 Review of Systems Review of Systems Constitutional: No fever EENTM: No Symptoms Reported Respiratory: No Symptoms Reported Cardiovascular: No Symptoms Reported Gastrointestinal: See HPI Genitourinary: No Symptoms Reported Musculoskeletal: no symptoms reported Skin: no symptoms reported Psychiatric/Neurological: No Symptoms Reported Endocrine: No Symptoms Reported Hematologic/Lymphatic: No Symptoms Reported All Other Systems Reviewed Negative Unless Noted: Yes Past Fuyhmgv-Edmtnc-Gpawzq Hx Patient Social History Tobacco Use?: Yes Smoking Status: Current Everyday Smoker Substance use?: No Alcohol Use?: No Pt feels they are or have been: No Immunizations Up To Date Tetanus Booster (TDap): Unknown First/Initial COVID19 Vaccinat: None Second COVID19 Vaccination Suhas: None Third COVID19 Vaccination Date: None Seasonal Allergies Seasonal Allergies: Yes Past Medical History Surgery/Hospitalization HX: HYST, LAP DANIA, x 3, TUBAL, NARCOLEPSY, ANXIETY, COPD, ASTHMA, HTN, MORBID OBESITY Surgeries: Yes (dental extractions, dxls, bmt, 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, LEFT EAR) Section, Ear Surgery, Gallbladder, Hysterectomy, 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 Respiratory: Yes Asthma, COPD Currently Using CPAP: No Currently Using BIPAP: No Cardiac: Yes Heart Murmur, Hypertension, Irregular Heartbeat Neurological: Yes Headaches /Migraines, Seizure Disorder 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 Disorders: Yes Female 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 Disorders: 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 [employer] History: Hysterectomy, 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 Sexually Transmitted Disease: No Genitourinary: Yes Kidney Stones Gastrointestinal: Yes Colitis, Gastroesophageal Reflux, Diverticulosis, Polyps, Ulcer Musculoskeletal: Yes (spina bifida) Arthritis, Scoliosis, Chronic Back Pain Endocrine: No HEENT: Yes Chronic Ear Infection Hearing Impairment: Denies, Hard of Hearing Cancer: No Psychosocial: Yes Anxiety, Depression Integumentary: No Blood Disorders: No Family Medical History No Pertinent Family Hx Physical Exam Vital Signs Vital Signs - First Documented 05/03/22 09:33 Temp 35.8 Pulse 80 Resp 18 B/P (MAP) 172/97 (122) Pulse Ox 95 O2 Delivery Room Air Capillary Refill : Less Than 3 Seconds Height/Weight/BMI Height: 5'0" Weight: 235lbs. 0oz. 106.045392wy; 47.00 BMI Method:Stated General Appearance: WD/WN, no apparent distress HEENT: PERRL/EOMI, normal ENT inspection, pharynx normal Neck: non-tender, full range of motion, supple, normal inspection Respiratory: chest non-tender, lungs clear, normal breath sounds, no respiratory distress, no accessory muscle use Cardiovascular: regular rate, rhythm, no edema, no murmur Gastrointestinal: normal bowel sounds, non tender, soft; No guarding, No rebound Extremities: normal range of motion, non-tender, normal inspection, no pedal edema, no calf tenderness, normal capillary refill Back: normal inspection, no CVA tenderness Neurologic/Psychiatric: no motor/sensory deficits, alert, normal mood/affect Skin: normal color, warm/dry Lymphatic: no adenopathy Progress/Results/Core Measures Results/Orders Lab Results Laboratory Tests Test 05/03/22 09:40 Range/Units Influenza Type A (RT-PCR) Not Detected Not Detecte Influenza Type B (RT-PCR) Not Detected Not Detecte SARS-CoV-2 RNA (RT-PCR) Not Detected Not Detecte My Orders Orders - TONY GOFF MD Influenza A And B By Pcr (05/03/22 09:44) Covid 19 Inhouse Test (05/03/22 09:44) Droperidol Inj (Ed Only) (Inapsine Inj ( (05/03/22 10:00) Promethazine Tablet (Phenergan Tablet) (05/03/22 10:00) Medications Given in ED Current Medications Medications Dose Ordered Sig/Brissa Route Start Time Stop Time Status Last Admin Dose Admin Droperidol 2.5 mg ONCE ONCE IM 05/03/22 10:00 05/03/22 10:01 DC 05/03/22 09:55 2.5 MG Promethazine HCl 12.5 mg ONCE ONCE PO 05/03/22 10:00 05/03/22 10:01 DC 05/03/22 09:56 12.5 MG Vital Signs/I&O 05/03/22 09:33 Temp 35.8 Pulse 80 Resp 18 B/P (MAP) 172/97 (122) Pulse Ox 95 O2 Delivery Room Air Blood Pressure Mean: 122 Progress Progress Note : Progress Note 41-year-old female with above history coming in due to several hours of nonbloody nonbilious vomiting and diarrhea. ABCs were intact and vitals were stable on presentation. Physical exam reassuring including a soft and nontender abdomen. Patient tolerating p.o. here in the ER. Flu and COVID test negative. Likely is a viral illness. I believe she stable for discharge with outpatient follow-up. She was sent home with strict return precautions. Departure Impression Primary Impression: Vomiting and diarrhea Disposition: HOME, SELF-CARE Condition: Stable Departure-Patient Inst. Decision time for Depature: 10:25 Referrals: MAYKEL CUMMINS APRN (PCP) Primary Care Physician [facility] (Family) Primary Care Physician Patient Instructions: Nausea and Vomiting, Adult ED Add. Discharge Instructions: Your flu and COVID testing were negative. You likely have a viral illness which will get better in the next several days. Try your Zofran at home, but it does not work you can try the Phenergan suppository which have been sent to your pharmacy. Try to take frequent but small sips of fluids to stay hydrated, do not worry about eating food until you are feeling better. Scripts Promethazine HCl (Promethazine Suppository) 25 Mg Supp.rect 25 MG RC Q6H PRN for NAUSEA/VOMITING-2ND LINE for 4 Days, #16 SUPP.RECT Prov: TONY GOFF MD 05/03/22 TONY GOFF MD May 03, 2022 09:54
[2022-05-03] MEDS ORDERED: PROMETHAZINE 25 MG (PHENERGAN) TAB PO ONE (10:00)
[2022-05-03] MEDS ORDERED: DROPERIDOL 5 MG/2 ML (INAPSINE) ED ONLY! IM ONE (10:00)
[2022-05-03] MEDS ORDERED: PROM25SU44 RC (10:28)
== END 2022-05-03 10:39 | disposition home or self-care (01) ==
LOC: EDUNIT# 09:26 → ER FS 09:29
DX: R11.2 Nausea with vomiting, unspecified (principal); R19.7 Diarrhea, unspecified; E66.01 Morbid (severe) obesity due to excess calories; F17.200 Nicotine dependence, unspecified, uncomplicated; Z68.42 Body mass index [BMI] 45.0-49.9, adult; Z20.822 Contact with and (suspected) exposure to COVID-19
CPT/HCPCS: 87636; 99284

== ENCOUNTER 2022-05-20 20:12 | Emergency (ER) | payer MEDICAID ==
[~2022-05-20] VITALS: Ht 152.4 cm; Wt 118.8 kg
[~2022-05-20 20:12] MED LIST changes: +PROM25SU44 RC
[2022-05-20 20:18] VITALS: BP 174/88
[2022-05-20] MEDS ORDERED: fentaNYL INJ 100 MCG/2 ML AMP IVP ONE (20:45)
[2022-05-20] MEDS ORDERED: ONDANSETRON 4 MG/2 ML (SDV) Z0FRAN IVP ONE (20:45)
--- NOTE | 2022-05-20 20:45 | ED Abdominal Pain ---
General Chief Complaint: Abdominal/GI Problems Stated Complaint: ABD PAIN,RECTAL BLEEDING Nursing Triage Note: Pt presents with c/o lower abdominal pain and rectal bleeding that started this morning. Pt reports bright red and dark red blood, sometimes with clots. Pt reports 6-7 BM's today. Pt also states that she's had a headache. Source of Information: Patient, Old Records Exam Limitations: No Limitations History of Present Illness Date Seen by Provider: May 20, 2022 Time Seen by Provider: 20:22 Initial Comments This 41-year-old woman presents to the emergency room with primary complaint of bright red bloody stools and left lower quadrant abdominal pain. She also describes some chest pain intermittently. These symptoms started early this morning around 0600. She reports a history of colon polyps on prior endoscopy. Patient is the primary historian. I also reviewed documentation from prior encounters at [facility] [place] in [place] including endoscopy reports and cath report. Patient's primary care provider is Maykel Cummins. Her leisure travel agent is Dr. Mcwilliams. Her general surgeon is Dr. Cantrell. Moderate coronary artery disease was noted on angiography in October 2021. Endoscopy in June 2021 and February 2019 revealed internal hemorrhoids and hiatal hernia. Allergies and Home Medications Allergies Coded Allergies: gabapentin (Verified Allergy, Unknown, 01/25/19) metoclopramide (Unverified Allergy, Unknown, "CAUSES PT TO LOSE CONTROL OF MUSCLES", 01/25/19) Patient Home Medication List Home Medication List Reviewed: Yes Acetaminophen (Tylenol Extra Strength) 500 Mg Tablet, 1,000 MG PO Q8H PRN for PAIN-MILD (1-4), (Reported) Entered as Reported by: KEILY JONES on 12/28/21 1045 Aspirin (Aspirin EC) 81 Mg Tablet., 81 MG PO DAILY, (Reported) Entered as Reported by: DC CANSECO on 11/04/21 0835 Atenolol (Atenolol) 50 Mg Tablet, 50 MG PO BID, (Reported) Entered as Reported by: DC CANSECO on 11/04/21 0835 Atorvastatin Calcium (Atorvastatin Calcium) 10 Mg Tablet, 10 MG PO HS, (Reported) Entered as Reported by: DC CANSECO on 11/04/21 0835 Buspirone HCl (Buspirone HCl) 15 Mg Tablet, 15 MG PO TID, (Reported) Entered as Reported by: DC CANSECO on 11/04/21 0835 Cephalexin (Cephalexin) 500 Mg Tablet, 500 MG PO TID Prescribed by: FADY DOE MD on 03/30/22 2137 Diphenhydramine HCl (Benadryl Allergy) 25 Mg Tablet, 50 MG PO BID, (Reported) Entered as Reported by: KEILY JONES on 12/28/21 1045 Estradiol (Estradiol Tablet) 1 Mg Tablet, 1 MG PO DAILY, (Reported) Entered as Reported by: MADDY DANIELLE on 05/20/19 1327 Ethosuximide (Ethosuximide) 250 Mg Capsule, 250 MG PO HS, (Reported) Entered as Reported by: MADDY DANIELLE on 04/12/16 0942 Fluoxetine HCl (Fluoxetine HCl) 40 Mg Capsule, 80 MG PO DAILY, (Reported) Entered as Reported by: LILIBETH DOUGLAS on 01/26/19 0349 Hydrochlorothiazide (Hydrochlorothiazide) 12.5 Mg Tablet, 12.5 MG PO DAILY, (Reported) Entered as Reported by: DC CANSECO on 11/04/21 0835 Hydroxyzine HCl (Hydroxyzine HCl) 25 Mg Tablet, 25 MG PO TID PRN for ANXIETY, (Reported) Entered as Reported by: DC CANSECO on 11/04/21 0835 Isosorbide Mononitrate (Isosorbide Mononitrate ER) 60 Mg Tab, 60 MG PO DAILY, (Reported) Entered as Reported by: KEILY JONES on 12/28/21 1042 Lisinopril (Lisinopril) 20 Mg Tablet, 20 MG PO BID, (Reported) Entered as Reported by: MADDY DANIELLE on 05/20/19 1324 Nitroglycerin (Nitroglycerin) 0.4 Mg Tab.subl, 0.4 MG SL UD PRN for CHEST PAIN, (Reported) Entered as Reported by: KEILY JONES on 12/28/21 1042 Pantoprazole Sodium (Pantoprazole Sodium) 40 Mg Tablet.dr, 40 MG PO BID Prescribed by: RAHEEM MCWILLIAMS JR, MD on 12/29/21 1221 Pregabalin (Pregabalin) 150 Mg Capsule, 150 MG PO TID, (Reported) Entered as Reported by: DC CANSECO on 11/04/21 0835 Promethazine HCl (Promethazine Suppository) 25 Mg Supp.rect, 25 MG RC Q6H PRN for NAUSEA/VOMITING-2ND LINE Prescribed by: TONY GOFF on 05/03/22 1028 Ranolazine (Ranexa) 500 Mg Tab.er.12h, 1,000 MG PO BID Prescribed by: RAHEEM MCWILLIAMS JR, MD on 12/29/21 1221 Tizanidine HCl (Tizanidine HCl) 4 Mg Tablet, 4 MG PO TID PRN for MUSCLE SPASMS, (Reported) Entered as Reported by: KEILY JONES on 12/28/21 1042 Review of Systems Review of Systems Constitutional: no symptoms reported EENTM: No Symptoms Reported Respiratory: No Symptoms Reported Cardiovascular: See HPI Gastrointestinal: See HPI Genitourinary: No Symptoms Reported Musculoskeletal: no symptoms reported Skin: no symptoms reported Psychiatric/Neurological: No Symptoms Reported Endocrine: No Symptoms Reported Hematologic/Lymphatic: No Symptoms Reported Past Wvcwbwy-Yfyrnf-Yjrtrz Hx Patient Social History Tobacco Use?: Yes Tobacco type used: Cigarettes Use of E-Cig and/or Vaping dev: No Substance use?: No Alcohol Use?: No Immunizations Up To Date Tetanus Booster (TDap): Unknown First/Initial COVID19 Vaccinat: None Second COVID19 Vaccination Suhas: None Third COVID19 Vaccination Date: None Seasonal Allergies Seasonal Allergies: Yes Past Medical History Surgery/Hospitalization HX: HYST, LAP DANIA, x 3, TUBAL, NARCOLEPSY, ANXIETY, COPD, ASTHMA, HTN, MORBID OBESITY Surgeries: Yes (dental extractions, dxls, bmt, 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, LEFT EAR) Section, Ear Surgery, Gallbladder, Hysterectomy, Orthopedic (Carpal tunnel bilaterally), 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 Respiratory: Yes Asthma, COPD Currently Using CPAP: No Currently Using BIPAP: No Cardiac: Yes Coronary Artery Disease, Heart Murmur, Hypertension, Irregular Heartbeat Neurological: Yes Headaches /Migraines, Seizure Disorder 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 Disorders: Yes Female 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 Disorders: 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, 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 Sexually Transmitted Disease: No Genitourinary: Yes Kidney Stones Gastrointestinal: Yes Colitis, Gastroesophageal Reflux, Diverticulosis, Hemorrhoids, Polyps, Hiatal Hernia, Ulcer Musculoskeletal: Yes (spina bifida) Arthritis, Scoliosis, Chronic Back Pain Endocrine: No HEENT: Yes Chronic Ear Infection Hearing Impairment: Denies, Hard of Hearing Cancer: No Psychosocial: Yes Anxiety, Depression Integumentary: No Blood Disorders: No Family Medical History No Pertinent Family Hx Physical Exam Vital Signs Vital Signs - First Documented 05/20/22 20:18 Temp 36.0 Pulse 82 Resp 16 B/P (MAP) 174/88 (116) Capillary Refill : Less Than 3 Seconds Height/Weight/BMI Height: 5'0" Weight: 235lbs. 0oz. [id number]; 51.00 BMI Method:Stated General Appearance: WD/WN, no apparent distress, obese HEENT: normal ENT inspection Neck: normal inspection Respiratory: chest non-tender, lungs clear, normal breath sounds, no respiratory distress Cardiovascular: regular rate, rhythm, no edema, no murmur Gastrointestinal: non tender, soft Rectal: normal rectal tone, hemorrhoids (Internal and external); No tenderness; other (No active bleeding) Extremities: normal inspection, no pedal edema Neurologic/Psychiatric: no motor/sensory deficits, alert, normal mood/affect, oriented x 3 Skin: normal color, warm/dry Progress/Results/Core Measures Results/Orders Lab Results Laboratory Tests Test 05/20/22 20:58 Range/Units White Blood Count 13.4 H 4.3-11.0 10^3/uL Red Blood Count 4.11 3.80-5.11 10^6/uL Hemoglobin 12.2 11.5-16.0 g/dL Hematocrit 36 35-52 % Mean Corpuscular Volume 87 80-99 fL Mean Corpuscular Hemoglobin 30 25-34 pg Mean Corpuscular Hemoglobin Concent 34 32-36 g/dL Red Cell Distribution Width 13.6 10.0-14.5 % Platelet Count 423 H 130-400 10^3/uL Mean Platelet Volume 9.6 9.0-12.2 fL Immature Granulocyte % (Auto) 1 % Neutrophils (%) (Auto) 65 42-75 % Lymphocytes (%) (Auto) 29 12-44 % Monocytes (%) (Auto) 4 0-12 % Eosinophils (%) (Auto) 1 0-10 % Basophils (%) (Auto) 0 0-10 % Neutrophils # (Auto) 8.7 H 1.8-7.8 10^3/uL Lymphocytes # (Auto) 3.9 1.0-4.0 10^3/uL Monocytes # (Auto) 0.6 0.0-1.0 10^3/uL Eosinophils # (Auto) 0.2 0.0-0.3 10^3/uL Basophils # (Auto) 0.1 0.0-0.1 10^3/uL Immature Granulocyte # (Auto) 0.1 0.0-0.1 10^3/uL Prothrombin Time 12.5 12.2-14.7 SEC INR Comment 0.9 0.8-1.4 Activated Partial Thromboplast Time 28 24-35 SEC D-Dimer 0.38 0.00-0.49 UG/ML Sodium Level 140 135-145 MMOL/L Potassium Level 3.1 L 3.6-5.0 MMOL/L Chloride Level 100 98-107 MMOL/L Carbon Dioxide Level 28 21-32 MMOL/L Anion Gap 12 5-14 MMOL/L Blood Urea Nitrogen 15 7-18 MG/DL Creatinine 1.12 0.60-1.30 MG/DL Estimat Glomerular Filtration Rate 63 BUN/Creatinine Ratio 13 Glucose Level 119 H 70-105 MG/DL Calcium Level 9.6 8.5-10.1 MG/DL Corrected Calcium 9.4 8.5-10.1 MG/DL Magnesium Level 1.9 1.6-2.4 MG/DL Total Bilirubin 0.3 0.1-1.0 MG/DL Aspartate Amino Transf (AST/SGOT) 32 5-34 U/L Alanine Aminotransferase (ALT/SGPT) 15 0-55 U/L Alkaline Phosphatase 113 40-136 U/L Myoglobin < 21.0 <58.0 NG/ML Troponin I < 0.30 <0.30 NG/ML C-Reactive Protein 3.30 H <0.50 MG/DL Pro-B-Type Natriuretic Peptide 384.5 H <125.0 PG/ML Total Protein 7.4 6.4-8.2 GM/DL Albumin 4.2 3.2-4.5 GM/DL Lipase 48 8-78 U/L My Orders Orders - MONICA STANTON MD Cbc With Automated Diff (05/20/22 20:38) Magnesium (05/20/22 20:38) Chest 1 View Ap/Pa Only (05/20/22 20:38) Ekg Tracing (05/20/22 20:38) Comprehensive Metabolic Panel (05/20/22 20:38) Myoglobin Serum (05/20/22 20:38) Protime With Inr (05/20/22 20:38) Partial Thromboplastin Time (05/20/22 20:38) O2 (05/20/22 20:38) Monitor-Rhythm Ecg Trace Only (05/20/22 20:38) Ed Iv/Invasive Line Start (05/20/22 20:38) Lipase (05/20/22 20:38) Fibrin Degradation Products (05/20/22 20:38) Troponin I Fs (05/20/22 20:38) Probnp Fs (05/20/22 20:38) Fentanyl Inj (Sublimaze Injection) (05/20/22 20:45) Ondansetron Injection (Zofran Injectio (05/20/22 20:45) Crp Fs (05/20/22 21:44) Morphine Injection (Morphine Injection (05/20/22 21:54) Ct Abdomen/Pelvis W (05/20/22 21:54) Iohexol Injection (Omnipaque 350 Mg/Ml 1 (05/20/22 22:00) Received Contrast (Hold Metformin- Contr (05/20/22 22:00) Sodium Chloride Flush (Catheter Flush Sy (05/20/22 22:00) Ns (Ivpb) (Sodium Chloride 0.9% Ivpb Bag (05/20/22 22:00) Potassium Chloride (Tablet) (Klor Con Ta (05/20/22 23:45) Hydrocodone/Apap 5/325 Tablet (Lortab 5 (05/21/22 00:00) Medications Given in ED Current Medications Medications Dose Ordered Sig/Brissa Route Start Time Stop Time Status Last Admin Dose Admin Acetaminophen/ Hydrocodone Bitart 1 ea ONCE ONCE PO 05/21/22 00:00 05/21/22 00:01 DC 05/21/22 00:04 1 EA Potassium Chloride 30 meq ONCE ONCE PO 05/20/22 23:45 05/20/22 23:46 DC 05/21/22 00:04 30 MEQ Vital Signs/I&O 05/20/22 20:18 Temp 36.0 Pulse 82 Resp 16 B/P (MAP) 174/88 (116) Blood Pressure Mean: 116 Progress Progress Note : Progress Note Work-up was pursued including the chest pain order set. Hypokalemia was noted and treated with oral potassium. Pain was treated with opioids parenterally and orally. Due to her leukocytosis and left lower quadrant pain, CT was pursued. There were no significant abnormalities on CT to explain her pain. I postulate that she had a gastroenteritis that triggered abdominal pain and diarrhea. At this GI disturbance led to irritation of her internal hemorrhoids and the bleeding she experienced earlier today. Digital rectal exam was performed. There were some protruding external hemorrhoids and palpable internal hemorrhoids. No thrombosis, significant pain, or active bleeding at the time of my exam. See discharge instructions for further discussion. Initial ECG Impression Date: May 20, 2022 Initial ECG Impression Time: 21:01 Initial ECG Rate: 75 Initial ECG Rhythm: Normal Sinus Comment Sinus rhythm with variable rate. No ST elevation or depression. No abnormal intervals or axis deviation. Diagnostic Imaging Diagonstic Imaging: Xray Plain Films/CT/US/NM/MRI: chest Comments NAME: JUVENTINO BEAN [facility] REC#: [id number] PT STATUS: REG ER : 1980 PHYSICIAN: MONICA STANTON MD ADMIT DATE: 05/20/22/ER FS Signed Date of Exam:05/20/22 CHEST 1 VIEW AP/PA ONLY EXAMINATION: Chest radiograph, portable AP view. DATE: 05/20/2022 8:53 PM INDICATION: 41-year-old female, chest and abdominal pain. COMPARISON: April 15, 2022. FINDINGS: Heart size and mediastinal contours are grossly unchanged. There is no identified pneumothorax. There is no large pleural effusion. There is no identified interval focal airspace consolidation. There are some technical limitations of the study given patient body habitus and difficulties with exposure. IMPRESSION: No identified interval acute cardiopulmonary abnormality. Dictated by: Dictated on workstation # [id number] Dict: 05/20/222054 Trans: 05/20/222105 [facility] [id number] Interpreted by: JAYLA BARFIELD MD Electronically signed by: JAYLA BARFIELD MD 05/20/222105 Diagonstic Imaging: CT Plain Films/CT/US/NM/MRI: c-spine, pelvis Comments CT abdomen and pelvis was viewed by me. There were no acute abnormalities to explain her pain based on my interpretation. [employer] report reviewed was also did not reveal any acute abnormalities to explain her pain. In-house radiologist report was also eventually reviewed and is included below. NAME: JUVENTINO BEAN [facility] REC#: [id number] PT STATUS: DEP ER : 1980 PHYSICIAN: MONICA STANTON MD ADMIT DATE: 05/20/22/ER FS Draft Date of Exam:05/20/22 CT ABDOMEN/PELVIS W PROCEDURE: CT abdomen and pelvis with contrast. TECHNIQUE: Multiple contiguous axial images were obtained through the abdomen and pelvis after administration of intravenous contrast. Auto Exposure Controls were utilized during the CT exam to meet ALARA standards for radiation dose reduction. All CT scans use one or more of the following dose optimizing techniques: automated exposure control, MA and/or KvP adjustment based on patient size and exam type or iterative reconstruction. INDICATION: Left lower quadrant abdominal pain and bloody stools. Comparison is made with prior CT from 04/06/2020. The lung bases are clear. The liver is enlarged at approximately 20 cm. No focal liver mass is detected. Gallbladder surgically absent. There is no biliary ductal dilatation. Pancreas and spleen are unremarkable. No adrenal mass is identified. No renal calculi or hydronephrosis is detected. Aorta is nonaneurysmal. The bowel loops are unremarkable. There is no obstruction. The appendix is visualized and unremarkable. No free fluid in the abdomen or pelvis is identified. The bladder is unremarkable. The uterus appears to be surgically absent. No inflammatory changes are seen. IMPRESSION: 1. Hepatomegaly. 2. No acute feature in the abdomen or pelvis is identified. Dictated on workstation # [id number] Dict: 05/21/22 0644 Trans: 05/21/22 0700 ERIC [id number] Interpreted by: SAL ALDANA MD Departure Impression Primary Impression: Left lower quadrant pain Additional Impressions: Hematochezia Hypokalemia Hemorrhoids Qualified Codes: K64.9 - Unspecified hemorrhoids Disposition: HOME, SELF-CARE Condition: Improved Departure-Patient Inst. Decision time for Depature: 23:51 Referrals: MAYKEL CUMMINS APRN (PCP) Primary Care Physician [facility]/JENNIFER (Family) Primary Care Physician Patient Instructions: Abdominal Pain, Adult ED, Bloody Stools, Adult ED, Hemorrhoids ED Add. Discharge Instructions: Adhere to a clear liquid diet for the next 24 hours. This includes water, sports drinks, chicken broth, Jell-O, etc. Then gradually advance your diet with small quantities of bland food as tolerated. You may use pypi-nab-eloeplz hemorrhoid preparations such as Preparation H. Use Tylenol (acetaminophen) up to 1000 mg every 6 hours as needed for pain. Return to care if you have worsening symptoms or develop new symptoms such as fever. Follow-up with your primary care provider early next week. All discharge instructions reviewed with patient and/or family. Voiced understanding. Copy Copies To 1: RAN CANTRELL DO Copies To 2: [facility]/MONICA HASSAN MD May 20, 2022 20:45
--- NOTE | 2022-05-20 21:06 | Diagnostic Imaging Report ---
EXAMINATION: Chest radiograph, portable AP view. DATE: 05/20/2022 8:53 PM INDICATION: 41-year-old female, chest and abdominal pain. COMPARISON: April 15, 2022. FINDINGS: Heart size and mediastinal contours are grossly unchanged. There is no identified pneumothorax. There is no large pleural effusion. There is no identified interval focal airspace consolidation. There are some technical limitations of the study given patient body habitus and difficulties with exposure. IMPRESSION: No identified interval acute cardiopulmonary abnormality. Dictated by: Dictated on workstation # [id number]
[2022-05-20 21:12] LABS: BASOPHILS # (AUTO) 0.1 10^3/uL (0.0-0.1); BASOPHILS % (AUTO) 0 % (0-10); EOSINOPHILS # (AUTO) 0.2 10^3/uL (0.0-0.3); EOSINOPHILS % (AUTO) 1 % (0-10); HEMATOCRIT 36 % (35-52); HEMOGLOBIN 12.2 g/dL (11.5-16.0); LYMPHOCYTES # (AUTO) 3.9 10^3/uL (1.0-4.0); LYMPHOCYTES % (AUTO) 29 % (12-44); MEAN CORPUSCULAR HEMOGLOBIN 30 pg (25-34); MEAN CORPUSCULAR HGB CONC 34 g/dL (32-36); MEAN CORPUSCULAR VOLUME 87 fL (80-99); MEAN PLATELET VOLUME 9.6 fL (9.0-12.2); MONOCYTES # (AUTO) 0.6 10^3/uL (0.0-1.0); MONOCYTES % (AUTO) 4 % (0-12); NEUTROPHILS # (AUTO) 8.7 10^3/uL (1.8-7.8); NEUTROPHILS % (AUTO) 65 % (42-75); PLATELET COUNT 423 10^3/uL (130-400); WHITE BLOOD COUNT 13.4 10^3/uL (4.3-11.0)
[2022-05-20 21:21] LABS: INR 0.9 (0.8-1.4); PROTHROMBIN TIME PATIENT 12.5 SEC (12.2-14.7)
[2022-05-20 21:31] LABS: ALANINE AMINOTRANSFERASE 15 U/L (0-55); ALBUMIN 4.2 GM/DL (3.2-4.5); ALKALINE PHOSPHATASE 113 U/L (40-136); BILIRUBIN,TOTAL 0.3 MG/DL (0.1-1.0); BUN/CREATININE RATIO 13; CALCIUM 9.6 MG/DL (8.5-10.1); CARBON DIOXIDE 28 MMOL/L (21-32); CHLORIDE 100 MMOL/L (98-107); CREATININE SERUM 1.12 MG/DL (0.60-1.30); GFR ESTIMATED 63; GLUCOSE 119 MG/DL (70-105); LIPASE 48 U/L (8-78); MAGNESIUM 1.9 MG/DL (1.6-2.4); POTASSIUM 3.1 MMOL/L (3.6-5.0); SODIUM 140 MMOL/L (135-145); TOTAL PROTEIN 7.4 GM/DL (6.4-8.2)
[2022-05-20] MEDS ORDERED: morphine INJ 10 MG/ML 1ML (SYR OR VIAL) IVP STA (21:54)
[2022-05-20] MEDS ORDERED: HOLD METFORMIN - RECEIVED CONTRAST 20 ML VIAL IV SCH (22:00)
[2022-05-20] MEDS ORDERED: NS 100 ML (IVPB) BAG IV ONE (22:00)
[2022-05-20] MEDS ORDERED: IOHEXOL 350 MG/ML 100 ML (OMNIPAQUE 350) VIAL IV ONE (22:00)
[2022-05-20] MEDS ORDERED: CATHETER FLUSH 10 ML SYR IV PRN (22:00)
[2022-05-20] MEDS ORDERED: KCL 10 MEQ TAB (MICRO K) PO ONE (23:45)
[2022-05-21] MEDS ORDERED: HYDROcodone/APAP 5 MG/325 MG (LORTAB) TAB PO ONE
--- NOTE | 2022-05-21 07:01 | Diagnostic Imaging Report ---
PROCEDURE: CT abdomen and pelvis with contrast. TECHNIQUE: Multiple contiguous axial images were obtained through the abdomen and pelvis after administration of intravenous contrast. Auto Exposure Controls were utilized during the CT exam to meet ALARA standards for radiation dose reduction. All CT scans use one or more of the following dose optimizing techniques: automated exposure control, MA and/or KvP adjustment based on patient size and exam type or iterative reconstruction. INDICATION: Left lower quadrant abdominal pain and bloody stools. Comparison is made with prior CT from 04/06/2020. The lung bases are clear. The liver is enlarged at approximately 20 cm. No focal liver mass is detected. Gallbladder surgically absent. There is no biliary ductal dilatation. Pancreas and spleen are unremarkable. No adrenal mass is identified. No renal calculi or hydronephrosis is detected. Aorta is nonaneurysmal. The bowel loops are unremarkable. There is no obstruction. The appendix is visualized and unremarkable. No free fluid in the abdomen or pelvis is identified. The bladder is unremarkable. The uterus appears to be surgically absent. No inflammatory changes are seen. IMPRESSION: 1. Hepatomegaly. 2. No acute feature in the abdomen or pelvis is identified. Dictated by: Dictated on workstation # [id number]
== END 2022-05-21 00:10 | disposition home or self-care (01) ==
LOC: EDUNIT# 20:12 → ER FS 20:14
DX: K92.1 Melena (principal); E87.6 Hypokalemia; K64.4 Residual hemorrhoidal skin tags; K64.8 Other hemorrhoids; F17.210 Nicotine dependence, cigarettes, uncomplicated; E66.01 Morbid (severe) obesity due to excess calories; Z68.43 Body mass index [BMI] 50.0-59.9, adult; Z87.19 Personal history of other diseases of the digestive system
CPT/HCPCS: 36415; 71045; 74177; 80053; 83690; 83735; 83874; 83880; 84484; 85025; 85379; 85610; 85730; 86141; 93005; 93041

== ENCOUNTER 2022-10-04 21:45 | Emergency (ER) | payer MEDICAID ==
[~2022-10-04 21:45] MED LIST changes: -GENT5DRO30 EACH EAR; +GENT5DRO6 EACH EAR
[2022-10-04] MEDS ORDERED: CYCLOBENZAPRINE 10 MG (FLEXERIL) TAB PO STA (21:56)
[2022-10-04] MEDS ORDERED: KETOROLAC 15 MG/ML VIAL IM ONE (22:00)
[2022-10-04] MEDS ORDERED: ACETAMINOPHEN 500 MG TAB (TYLENOL) PO ONE (22:00)
[2022-10-04] MEDS ORDERED: IBUP-1773 PO (22:02)
[2022-10-04] MEDS ORDERED: LIDO700A45 TP (22:02)
--- NOTE | 2022-10-04 22:02 | ED Back Pain ---
General Chief Complaint: Back Problems Stated Complaint: L LEG AND LOWER BACK PAIN Source of Information: Patient, Old Records Exam Limitations: No Limitations History of Present Illness Date Seen by Provider: October 04, 2022 Time Seen by Provider: 21:47 Initial Comments 42-year-old female with past medical history of chronic low back pain coming in due to low back pain. She typically has an episode of acute low back pain every several months. She has Flexeril and Tylenol at home for this, but she was [place] the movie theater when it started hurting tonight. The pain is in her left lower back like it typically is. It radiates down her left leg. Denies any bowel or bladder issues, no weakness, no numbness, fever, trauma, or any other concerns. Allergies and Home Medications Allergies Coded Allergies: gabapentin (Verified Allergy, Unknown, 01/25/19) metoclopramide (Unverified Allergy, Unknown, "CAUSES PT TO LOSE CONTROL OF MUSCLES", 01/25/19) Patient Home Medication List Home Medication List Reviewed: Yes Acetaminophen (Tylenol Extra Strength) 500 Mg Tablet, 1,000 MG PO Q8H PRN for PAIN-MILD (1-4), (Reported) Entered as Reported by: KEILY JONES on 12/28/21 1045 Aspirin (Aspirin EC) 81 Mg Tablet.dr, 81 MG PO DAILY, (Reported) Entered as Reported by: DC CANSECO on 11/04/21 0835 Atenolol (Atenolol) 50 Mg Tablet, 50 MG PO BID, (Reported) Entered as Reported by: DC CANSECO on 11/04/21 0835 Atorvastatin Calcium (Atorvastatin Calcium) 10 Mg Tablet, 10 MG PO HS, (Reported) Entered as Reported by: DC CANSECO on 11/04/21 0835 Buspirone HCl (Buspirone HCl) 15 Mg Tablet, 15 MG PO TID, (Reported) Entered as Reported by: DC CANSECO on 11/04/21 0835 Cephalexin (Cephalexin) 500 Mg Tablet, 500 MG PO TID Prescribed by: FADY DOE MD on 03/30/227 Diphenhydramine HCl (Benadryl Allergy) 25 Mg Tablet, 50 MG PO BID, (Reported) Entered as Reported by: KEILY JONES on 12/28/21 1045 Estradiol (Estradiol Tablet) 1 Mg Tablet, 1 MG PO DAILY, (Reported) Entered as Reported by: MADDY DANIELLE on 05/20/19 1327 Ethosuximide (Ethosuximide) 250 Mg Capsule, 250 MG PO HS, (Reported) Entered as Reported by: MADDY DANIELLE on 04/12/16 0942 Fluoxetine HCl (Fluoxetine HCl) 40 Mg Capsule, 80 MG PO DAILY, (Reported) Entered as Reported by: LILIBETH DOUGLAS on 01/26/19 0349 Hydrochlorothiazide (Hydrochlorothiazide) 12.5 Mg Tablet, 12.5 MG PO DAILY, (Reported) Entered as Reported by: DC CANSECO on 11/04/21 0835 Hydroxyzine HCl (Hydroxyzine HCl) 25 Mg Tablet, 25 MG PO TID PRN for ANXIETY, (Reported) Entered as Reported by: DC CANSECO on 11/04/21 0835 Isosorbide Mononitrate (Isosorbide Mononitrate ER) 60 Mg Tab, 60 MG PO DAILY, (Reported) Entered as Reported by: KEILY JONES on 12/28/21 1042 Lisinopril (Lisinopril) 20 Mg Tablet, 20 MG PO BID, (Reported) Entered as Reported by: MADDY DANIELLE on 05/20/19 1324 Nitroglycerin (Nitroglycerin) 0.4 Mg Tab.subl, 0.4 MG SL UD PRN for CHEST PAIN, (Reported) Entered as Reported by: KEILY JONES on 12/28/21 1042 Pantoprazole Sodium (Pantoprazole Sodium) 40 Mg Tablet.dr, 40 MG PO BID Prescribed by: RAHEEM LI JR, MD on 12/29/21 1221 Pregabalin (Pregabalin) 150 Mg Capsule, 150 MG PO TID, (Reported) Entered as Reported by: DC CANSECO on 11/04/21 0835 Promethazine HCl (Promethazine Suppository) 25 Mg Supp.rect, 25 MG RC Q6H PRN for NAUSEA/VOMITING-2ND LINE Prescribed by: TONY GOFF on 05/03/22 1028 Ranolazine (Ranexa) 500 Mg Tab.er.12h, 1,000 MG PO BID Prescribed by: RAHEEM LI JR, MD on 12/29/21 1221 Tizanidine HCl (Tizanidine HCl) 4 Mg Tablet, 4 MG PO TID PRN for MUSCLE SPASMS, (Reported) Entered as Reported by: KEILY JONES on 12/28/21 1042 Review of Systems Constitutional: No fever EENTM: no symptoms reported Respiratory: no symptoms reported Cardiovascular: no symptoms reported Gastrointestinal: no symptoms reported Genitourinary: no symptoms reported Musculoskeletal: see HPI Skin: no symptoms reported Psychiatric/Neurological: No Symptoms Reported Past [id number] Hx Patient Social History Tobacco Use?: No Use of E-Cig and/or Vaping dev: No Substance use?: No Alcohol Use?: No Pt feels they are or have been: No Immunizations Up To Date Tetanus Booster (TDap): Unknown First/Initial COVID19 Vaccinat: None Second COVID19 Vaccination Suhas: None Third COVID19 Vaccination Date: None Seasonal Allergies Seasonal Allergies: Yes Past Medical History Surgery/Hospitalization HX: HYST, LAP DANIA, x 3, TUBAL, NARCOLEPSY, ANXIETY, COPD, ASTHMA, HTN, MORBID OBESITY Surgeries: Yes (dental extractions, dxls, bmt, 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, LEFT EAR) Section, Ear Surgery, Gallbladder, Hysterectomy, Orthopedic, 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 Respiratory: Yes Asthma, COPD Currently Using CPAP: No Currently Using BIPAP: No Cardiac: Yes Coronary Artery Disease, Heart Murmur, Hypertension, Irregular Heartbeat Neurological: Yes Headaches /Migraines, Seizure Disorder 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 Disorders: Yes Female 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 Disorders: 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 [employer] History: Hysterectomy, 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 0oz. 106.924213wa; 51.00 BMI Method:Stated General Appearance: No Apparent Distress, WD/WN HEENT: PERRL/EOMI, Normal ENT Inspection, Pharynx Normal Neck: Full Range of Motion, Normal Inspection, Non Tender, Supple Cardiovascular: Regular Rate, Rhythm, No Edema, Normal Peripheral Pulses Respiratory: Chest Non Tender, Lungs Clear, Normal Breath Sounds, No Accessory Muscle Use, No Respiratory Distress Back: Normal Inspection, No CVA Tenderness, No Vertebral Tenderness, Other (No rmal appearing skin on her back with no rash, paraspinal tenderness in her left lower back) Extremity: Normal Capillary Refill, Normal Inspection, Normal Range of Motion, Non Tender, No Calf Tenderness, No Pedal Edema Neurologic/Psychiatric: Alert, No Motor/Sensory Deficits, Normal Mood/Affect, Other (Negative straight leg raise bilaterally) Skin: Normal Color, Warm/Dry Progress/Results/Core Measures Results/Orders My Orders Orders - TONY GOFF MD Ketorolac Injection (Toradol Injection) (10/04/22 22:00) Dexamethasone Injection (Decadron Inje (10/04/22 22:00) Cyclobenzaprine Tablet (Flexeril Tablet) (10/04/22 21:56) Acetaminophen Tablet (Tylenol Tablet) (10/04/22 22:00) Progress Progress Note : Progress Note 42-year-old female with above history coming in due to low back pain. ABCs were intact and vitals are stable on presentation. Physical exam reassuring including no focal neurologic deficits. She has no red flags for low back pain at this time. I reviewed imaging from last year of her low back which had no acute abnormalities and on my interpretation specifically no fracture, and joint spaces were well-maintained. Given the lack of trauma today, will not redo imaging. Symptoms are very recreatable with any type of movement and seem consistent with musculoskeletal causes. We will hold off on any type of urinalysis or CT imaging at this time. The patient was given IM Toradol, Decadron, and oral Flexeril and Tylenol. I will send a prescription for lidocaine patch as well as prescription ibuprofen. She was then discharged home in stable condition with strict return precautions. Departure Impression Primary Impression: Lumbar radiculopathy Disposition: HOME, SELF-CARE Condition: Stable Departure-Patient Inst. Decision time for Depature: 22:10 Referrals: MAYKEL CUMMINS APRN (PCP/Family) Primary Care Physician Patient Instructions: Low Back Pain (DC) Add. Discharge Instructions: We are not seeing any evidence of anything life-threatening at this time. Continue to take the muscle relaxer and Tylenol as needed. Prescription strength ibuprofen and lidocaine patches were also sent to your pharmacy to take. Please follow-up with your regular doctor if you are not improving in the next 2 weeks. Scripts Lidocaine (Lidocaine 5% Patch) 5 % Adh..patch 1 EACH TP Q12H PRN for Neuropathic pain MDD 2 for 14 Days, #28 PATCH 2 patches max for 12 hours, then 12 hours patch-free period. Prov: TONY GOFF MD 10/04/22 Ibuprofen (Ibuprofen) 600 Mg Tablet 600 MG PO Q6H PRN for PAIN-MILD for 7 Days, #28 TAB Prov: TONY GOFF MD 10/04/22 Work/School Note: Work Release Form Date Seen in the Emergency Department: October 04, 2022 Return to Work: October 06, 2022 Restrictions: No Restrictions TONY GOFF MD October 04, 2022 22:02
[2022-10-04 22:05] VITALS: BP 157/86
== END 2022-10-04 22:09 | disposition home or self-care (01) ==
LOC: EDUNIT# 21:45 → ER FS 21:46
DX: M54.16 Radiculopathy, lumbar region (principal); E66.01 Morbid (severe) obesity due to excess calories; Z68.43 Body mass index [BMI] 50.0-59.9, adult; Z28.310 Unvaccinated for COVID-19
CPT/HCPCS: 99284

== ENCOUNTER 2022-10-16 00:20 | Emergency (ER) | payer MEDICAID ==
[~2022-10-16 00:20] MED LIST changes: +IBUP-1773 PO; +LIDO700A45 TP
[2022-10-16] MEDS ORDERED: ASPIRIN 81 MG CHEW (CHILDREN'S ASA) PO ONE (00:30)
[2022-10-16] MEDS ORDERED: fentaNYL INJ 100 MCG/2 ML AMP IVP STA (00:30)
[2022-10-16] MEDS ORDERED: ONDANSETRON 4 MG/2 ML (SDV) Z0FRAN IVP STA (00:30)
[2022-10-16 00:36] LABS: BASOPHILS # (AUTO) 0.1 10^3/uL (0.0-0.1); BASOPHILS % (AUTO) 0 % (0-10); EOSINOPHILS # (AUTO) 0.2 10^3/uL (0.0-0.3); EOSINOPHILS % (AUTO) 1 % (0-10); HEMATOCRIT 40 % (35-52); HEMOGLOBIN 13.1 g/dL (11.5-16.0); LYMPHOCYTES # (AUTO) 7.7 10^3/uL (1.0-4.0); LYMPHOCYTES % (AUTO) 30 % (12-44); MEAN CORPUSCULAR HEMOGLOBIN 29 pg (25-34); MEAN CORPUSCULAR HGB CONC 33 g/dL (32-36); MEAN CORPUSCULAR VOLUME 87 fL (80-99); MEAN PLATELET VOLUME 9.7 fL (9.0-12.2); MONOCYTES # (AUTO) 1.2 10^3/uL (0.0-1.0); MONOCYTES % (AUTO) 5 % (0-12); NEUTROPHILS # (AUTO) 16.3 10^3/uL (1.8-7.8); NEUTROPHILS % (AUTO) 64 % (42-75); PLATELET COUNT 388 10^3/uL (130-400); WHITE BLOOD COUNT 25.6 10^3/uL (4.3-11.0)
--- NOTE | 2022-10-16 00:42 | ED Chest Pain ---
General Chief Complaint: Chest Pain Stated Complaint: CHEST PAINS|LIGHT HEADED Nursing Triage Note: Pt complaining of chest pain that started around 2330 tonight. 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 Mcwilliams, Product Scientist) History of Present Illness Date Seen by Provider: Oct 16, 2022 Time Seen by Provider: 00:23 Initial Comments 42-year-old female presenting with complaints of chest pain that started around 1130. She states that she was just standing when the pain came on.'s been sharp and stabbing at times and other times just tightness. She does have a history of coronary artery disease and tried taking nitroglycerin at home. She states that she has had 3 nitroglycerin with no significant change in her pain. She started feeling lightheaded after taking the nitroglycerin. She had some nausea but no vomiting. She was feeling a little more short of breath due to the pain. From review of the naval architect specialist notes and Battery Plate Remover report from Dr. Mcwilliams she does have up to a 70% stenosis of the diagonal branch of the left anterior descending artery and 50% mid segment stenosis of the LAD. Dr. Mcwilliams was treating this medically. Patient denies radiation of pain into her neck, jaw, arm. She has continued to smoke cigarettes. She also has morbid obesity. She is very anxious on arrival to the ED with having her pain. Timing/Duration: 1 hour, constant Severity/Quality: severe, pressure, sharp, tightness Location: substernal, central Radiation: no radiation Activities at Onset: none Prior CP/Workup: angina, cardiac cath, stress test Modifying Factors: worse with movement ASA po INSPECTOR MACHINE CUT GLASS: No NTG SL INSPECTOR MACHINE CUT GLASS: Yes Associated Symptoms: No abdominal pain, No back pain, No diaphoresis, No edema, No fatigue, No fever/chills, No headache, No heartburn, No rash; shortness of breath; No swelling/lump in chest, No syncope Allergies and Home Medications Allergies Coded Allergies: gabapentin (Verified Allergy, Unknown, 01/25/19) metoclopramide (Unverified Allergy, Unknown, "CAUSES PT TO LOSE CONTROL OF MUSCLES", 01/25/19) Patient Home Medication List Home Medication List Reviewed: Yes Acetaminophen (Tylenol Extra Strength) 500 Mg Tablet, 1,000 MG PO Q8H PRN for PAIN-MILD (1-4), (Reported) Entered as Reported by: KEILY JONES on 12/28/21 1045 Aspirin (Aspirin EC) 81 Mg Tablet.dr, 81 MG PO DAILY, (Reported) Entered as Reported by: DC CANSECO on 11/04/21 0835 Atenolol (Atenolol) 50 Mg Tablet, 50 MG PO BID, (Reported) Entered as Reported by: DC CANSECO on 11/04/21 0835 Atorvastatin Calcium (Atorvastatin Calcium) 10 Mg Tablet, 10 MG PO HS, (Reported) Entered as Reported by: DC CANSECO on 11/04/21 0835 Buspirone HCl (Buspirone HCl) 15 Mg Tablet, 15 MG PO TID, (Reported) Entered as Reported by: DC CANSECO on 11/04/21 0835 Cephalexin (Cephalexin) 500 Mg Tablet, 500 MG PO TID Prescribed by: FADY DOE MD on 03/30/22 2137 Diphenhydramine HCl (Benadryl Allergy) 25 Mg Tablet, 50 MG PO BID, (Reported) Entered as Reported by: KEILY JONES on 12/28/21 1045 Estradiol (Estradiol Tablet) 1 Mg Tablet, 1 MG PO DAILY, (Reported) Entered as Reported by: MADDY DANIELLE on 05/20/19 1327 Ethosuximide (Ethosuximide) 250 Mg Capsule, 250 MG PO HS, (Reported) Entered as Reported by: MADDY DANIELLE on 04/12/16 0942 Fluoxetine HCl (Fluoxetine HCl) 40 Mg Capsule, 80 MG PO DAILY, (Reported) Entered as Reported by: LILIBETH DOUGLAS on 01/26/19 0349 Hydrochlorothiazide (Hydrochlorothiazide) 12.5 Mg Tablet, 12.5 MG PO DAILY, (Reported) Entered as Reported by: DC CANESCO on 11/04/21 0835 Hydroxyzine HCl (Hydroxyzine HCl) 25 Mg Tablet, 25 MG PO TID PRN for ANXIETY, (Reported) Entered as Reported by: DC CANSECO on 11/04/21 0835 Ibuprofen (Ibuprofen) 600 Mg Tablet, 600 MG PO Q6H PRN for PAIN-MILD Prescribed by: TONY GOFF on 10/04/222201 Isosorbide Mononitrate (Isosorbide Mononitrate ER) 60 Mg Tab, 60 MG PO DAILY, (Reported) Entered as Reported by: KEILY JONES on 12/28/21 1042 Lidocaine (Lidocaine 5% Patch) 5 % Adh..patch, 1 EACH TP Q12H PRN for Neuropathic pain Prescribed by: TONY GOFF on 10/04/222201 Lisinopril (Lisinopril) 20 Mg Tablet, 20 MG PO BID, (Reported) Entered as Reported by: MADDY DANIELLE on 05/20/19 1324 Nitroglycerin (Nitroglycerin) 0.4 Mg Tab.subl, 0.4 MG SL UD PRN for CHEST PAIN, (Reported) Entered as Reported by: KEILY JONES on 12/28/21 1042 Pantoprazole Sodium (Pantoprazole Sodium) 40 Mg Tablet.dr, 40 MG PO BID Prescribed by: RAHEEM MCWILLIAMS JR, MD on 12/29/21 1221 Pregabalin (Pregabalin) 150 Mg Capsule, 150 MG PO TID, (Reported) Entered as Reported by: DC CANSECO on 11/04/21 0835 Promethazine HCl (Promethazine Suppository) 25 Mg Supp.rect, 25 MG RC Q6H PRN for NAUSEA/VOMITING-2ND LINE Prescribed by: TONY GOFF on 05/03/22 1028 Ranolazine (Ranexa) 500 Mg Tab.er.12h, 1,000 MG PO BID Prescribed by: RAHEEM MCWILLIAMS JR, MD on 12/29/21 1221 Tizanidine HCl (Tizanidine HCl) 4 Mg Tablet, 4 MG PO TID PRN for MUSCLE SPASMS, (Reported) Entered as Reported by: KEILY JONES on 12/28/21 1042 Review of Systems Review of Systems Constitutional: No chills, No fever EENTM: No Symptoms Reported Respiratory: See HPI Cardiovascular: See HPI Gastrointestinal: See HPI Genitourinary: No Symptoms Reported Musculoskeletal: no symptoms reported Skin: no symptoms reported Psychiatric/Neurological: Anxiety Past Huwrpsy-Aaxepi-Bidiyi Hx Patient Social History Tobacco Use?: Yes Tobacco type used: Cigarettes Smoking Status: Current Everyday Smoker Use of E-Cig and/or Vaping dev: No Substance use?: No Alcohol Use?: No Immunizations Up To Date Tetanus Booster (TDap): Unknown First/Initial COVID19 Vaccinat: None Second COVID19 Vaccination Suhas: None Third COVID19 Vaccination Date: None Seasonal Allergies Seasonal Allergies: Yes Past Medical History Surgery/Hospitalization HX: HYST, LAP DANIA, x 3, TUBAL, NARCOLEPSY, ANXIETY, COPD, ASTHMA, HTN, MORBID OBESITY, coronary artery disease Surgeries: Yes (dental extractions, dxls, bmt, 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, LEFT EAR) Section, Ear Surgery, Gallbladder, Hysterectomy, Orthopedic, 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 Respiratory: Yes Asthma, COPD Currently Using CPAP: No Currently Using BIPAP: No Cardiac: Yes Coronary Artery Disease, Heart Murmur, Hypertension, Irregular Heartbeat Neurological: Yes Headaches /Migraines, Seizure Disorder 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 Disorders: Yes Female 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 Disorders: 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, 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 Sexually Transmitted Disease: No Genitourinary: Yes Kidney Stones Gastrointestinal: Yes Colitis, Gastroesophageal Reflux, Diverticulosis, Hemorrhoids, Polyps, Hiatal Hernia, Ulcer Musculoskeletal: Yes (spina bifida) Arthritis, Scoliosis, Chronic Back Pain Endocrine: No HEENT: Yes Chronic Ear Infection Hearing Impairment: Denies, Hard of Hearing Cancer: No Psychosocial: Yes Anxiety, Depression Integumentary: No Blood Disorders: No Family Medical History No Pertinent Family Hx Physical Exam Vital Signs Vital Signs - First Documented 10/16/22 00:20 Pulse 73 Resp 18 B/P (MAP) 119/86 (97) Pulse Ox 99 O2 Delivery Room Air Capillary Refill : Less Than 3 Seconds Height, Weight, BMI Height: 5'0" Weight: 235lbs. 0oz. [id number]; 51.00 BMI Method:Stated General Appearance: Anxious, Obese Neck: Full Range of Motion, Normal Inspection, Non Tender, Supple Respiratory: Chest Non Tender, Lungs Clear, Normal Breath Sounds Cardiovascular: Regular Rate, Rhythm, Normal Peripheral Pulses Gastrointestinal: Normal Bowel Sounds, No Pulsatile Mass, Non Tender, Soft Extremity: Normal Capillary Refill, Normal Inspection, No Pedal Edema Neurologic/Psychiatric: Alert, Oriented x3 Skin: Normal Color, Warm/Dry Progress/Results/Core Measures Results/Orders Lab Results Laboratory Tests Test 10/16/22 00:30 10/16/22 01:55 10/16/22 04:10 Range/Units White Blood Count 25.6 H 4.3-11.0 10^3/uL Red Blood Count 4.53 3.80-5.11 10^6/uL Hemoglobin 13.1 11.5-16.0 g/dL Hematocrit 40 35-52 % Mean Corpuscular Volume 87 80-99 fL Mean Corpuscular Hemoglobin 29 25-34 pg Mean Corpuscular Hemoglobin Concent 33 32-36 g/dL Red Cell Distribution Width 13.8 10.0-14.5 % Platelet Count 388 130-400 10^3/uL Mean Platelet Volume 9.7 9.0-12.2 fL Immature Granulocyte % (Auto) 1 % Neutrophils (%) (Auto) 64 42-75 % Lymphocytes (%) (Auto) 30 12-44 % Monocytes (%) (Auto) 5 0-12 % Eosinophils (%) (Auto) 1 0-10 % Basophils (%) (Auto) 0 0-10 % Neutrophils # (Auto) 16.3 H 1.8-7.8 10^3/uL Lymphocytes # (Auto) 7.7 H 1.0-4.0 10^3/uL Monocytes # (Auto) 1.2 H 0.0-1.0 10^3/uL Eosinophils # (Auto) 0.2 0.0-0.3 10^3/uL Basophils # (Auto) 0.1 0.0-0.1 10^3/uL Immature Granulocyte # (Auto) 0.2 H 0.0-0.1 10^3/uL Neutrophils % (Manual) 51 % Lymphocytes % (Manual) 40 % Monocytes % (Manual) 6 % Eosinophils % (Manual) 2 % Basophils % (Manual) 1 % Prothrombin Time 12.7 12.2-14.7 SEC INR Comment 0.9 0.8-1.4 Activated Partial Thromboplast Time 25 24-35 SEC D-Dimer 0.29 0.00-0.49 UG/ML Sodium Level 141 135-145 MMOL/L Potassium Level 2.9 L 3.6-5.0 MMOL/L Chloride Level 101 98-107 MMOL/L Carbon Dioxide Level 29 21-32 MMOL/L Anion Gap 11 5-14 MMOL/L Blood Urea Nitrogen 17 7-18 MG/DL Creatinine 1.05 0.60-1.30 MG/DL Estimat Glomerular Filtration Rate 68 BUN/Creatinine Ratio 16 Glucose Level 110 H 70-105 MG/DL Calcium Level 9.5 8.5-10.1 MG/DL Corrected Calcium 9.4 8.5-10.1 MG/DL Magnesium Level 1.7 1.6-2.4 MG/DL Total Bilirubin 0.3 0.1-1.0 MG/DL Aspartate Amino Transf (AST/SGOT) 13 5-34 U/L Alanine Aminotransferase (ALT/SGPT) 12 0-55 U/L Alkaline Phosphatase 108 40-136 U/L Troponin I < 0.30 < 0.30 < 0.30 <0.30 NG/ML Pro-B-Type Natriuretic Peptide 377.7 H <125.0 PG/ML Total Protein 7.0 6.4-8.2 GM/DL Albumin 4.1 3.2-4.5 GM/DL Lipase 22 8-78 U/L My Orders Orders - LEIGH ANGEL MD Cbc With Automated Diff (10/16/22:30) Magnesium (10/16/22:30) Chest 1 View Ap/Pa Only (10/16/22:30) Ekg Tracing (10/16/22:30) Comprehensive Metabolic Panel (10/16/2230) Protime With Inr (10/16/22:30) Partial Thromboplastin Time (10/16/22 00:30) O2 (10/16/22:30) Monitor-Rhythm Ecg Trace Only (10/16/22:30) Aspirin Chewable Tablet (Baby Aspirin Ch (10/16/22:30) Ed Iv/Invasive Line Start (10/16/22 00:30) Lipase (10/16/22:30) Troponin I Fs (10/16/22 00:30) Probnp Fs (10/16/22:30) Fentanyl Inj (Sublimaze Injection) (10/16/22:30) Ondansetron Injection (Zofran Injectio (10/16/22 00:30) Fibrin Degradation Products (10/16/22:30) Manual Differential (10/16/22 00:30) Ekg Tracing (10/16/22 01:45) Troponin I Fs (10/16/22 01:45) Ns Iv 1000 Ml (Sodium Chloride 0.9%) (10/16/22 02:13) Troponin I Fs (10/16/22 04:00) Albuterol/Ipra Inhalation Soln (Duoneb I (10/16/22 04:00) Morphine Injection (Morphine Injection (10/16/22 04:00) Svn Small Volume Nebulizer (10/16/22 04:00) Medications Given in ED Current Medications Medications Dose Ordered Sig/Brissa Route Start Time Stop Time Status Last Admin Dose Admin Aspirin 324 mg ONCE ONCE PO 10/16/22 00:30 10/16/22 00:32 DC 10/16/22 00:40 324 MG Vital Signs/I&O 10/16/22 10/16/22 00:20 05:11 Pulse 73 60 Resp 18 16 B/P (MAP) 119/86 (97) 97/58 Pulse Ox 99 95 O2 Delivery Room Air Room Air Blood Pressure Mean: 97 Progress Progress Note #1: Progress Note Potential life-threatening diagnosis of STEMI, non-STEMI angina, unstable angina, acute coronary syndrome, pneumonia, pulmonary embolism. Obtain electrocardiogram to look for cardiac ischemia. Placed on cardiac personnel monitor to watch heart rate and rhythm. On my initial interpretation her heart rate is in the 60s and sinus rhythm. Establish peripheral IV and send labs for complete blood count, comprehensive metabolic profile, troponin, proBNP, coagulation factors, D-dimer, magnesium. 1 view chest x-ray to look for acute pathology in the chest to be contributing to her pain. Ordered fentanyl 50 mcg IV for pain as well as aspirin 324 mg p.o. Progress Note #2: Time: 01:45 Progress Note Lab does show an elevated white blood cell count of 25.6 thousand without a left shift. She has a normal differential. Her hemoglobin was not anemic at 13.1. Her comprehensive metabolic profile did not show acute significant electrolyte abnormalities. Her initial troponin was less than 0.3. Will repeat the troponin and an electrocardiogram to see if there is been any change from the initial test on arrival. Continue to watch on cardiac personnel monitor and she continues to have a sinus rhythm with a heart rate in the 60s. I did not appreciate any acute infiltrate or effusion on her 1 view chest x-ray on my interpretation. 0153 repeat electrocardiogram shows sinus bradycardia with a heart rate of 57 bpm. ME interval 183 ms. She continues to have an incomplete right bundle branch block. No acute ST elevation with global T wave flattening and low QRS voltage. QT interval 464 ms and a QTc interval 459 ms. 0224 repeat troponin was still less than 0.3. Patient's blood pressure was 90 systolic as she was resting in the room. We will order a liter normal saline IV fluid bolus for hydration. She reported some improvement in her pain and was resting in the room. 0400 I reviewed the lab findings and electrocardiogram findings with the patient. Advised that so far we were not seeing evidence of an acute myocardial infarction or heart attack. Her screening test for blood clot with a D-dimer was also negative as the D-dimer was 0.28. Since she does have some mild expiratory wheezing at this point will try a DuoNeb breathing treatment in case that might be contributing to her pressure and tightness sensation in her chest. Repeat the troponin to have more of a delta troponin with onset of pain around 11 or 1130. If this continues to be negative would discharged home and encouraged her to call Dr. Plasencia's office on Monday about follow-up and repeat evaluation from a cardiology standpoint in case he wanted to repeat a stress test or heart cath since it has been a year. We will also give a dose of morphine 2 mg IV to try and help with her complaints of tightness and pressure in her chest. Progress Note #3: Time: 05:04 Progress Note Third troponin was still less than 0.3. Patient did have further improvement in her symptoms with the breathing treatment and dose of morphine. [place]arrison that this was atypical chest pain and did not represent acute coronary syndrome or acute myocardial infarction as she was not having a bump in her troponin. She had negative screening for DVT and blood clots. Will encourage symptomatic treatment and have her follow-up with clinic and primary care as well as checking in with Dr. Gary or cardiology about possible repeat stress test or heart cath since it has been 1 year since her last stress test and heart cath. Patient did also report now that she has been taking a steroid for the last several days due to increased coughing and shortness of breath. Her primary care physician had prescribed that. She does use an inhaler at home but does not have a spacer to use with it. A spacer was provided to the patient to be able to use with her inhaler at home. Education on use of the spacer was reviewed with the patient. Counseled on follow-up and return precautions. Initial ECG Impression Date: Oct 16, 2022 Initial ECG Impression Time: 00:27 Initial ECG Rate: 61 Initial ECG Rhythm: Normal Sinus Initial ECG Comparisson: Unchanged (Similar to May 20, 2022) Comment On my personal interpretation and review her electrocardiogram shows a normal sinus rhythm with a heart rate of 61 bpm. ME interval 183 ms. She has low vol tage QRS complexes. An incomplete right bundle branch block. QT interval 426 ms with a QTc interval 430 ms. There is no acute ST elevation. She has global T wave flattening. Overall appears similar to prior tracing from May 20, 2022. EKG : EKG Time: 01:53 Rate: 57 Rhythm: S.Judah ECG Comparisson: Unchanged Comment Personal interpretation and review the electrocardiogram shows sinus bradycardia with a heart rate of 57 bpm. ME interval [address] elevation. Continues to have incomplete right bundle branch block. QT interval 464 ms with a QTc interval 459 ms. Overall appears similar to tracing from earlier this morning on arrival to the ED. Diagnostic Imaging Diagonstic Imaging: Xray Plain Films/CT/US/NM/MRI: chest Reviewed: Reviewed by Me Departure Impression Primary Impression: Atypical chest pain Disposition: 01 HOME, SELF-CARE Condition: Stable Departure-Patient Inst. Decision time for Depature: 05:06 Referrals: MAYKEL CUMMINS APRN (PCP/Family) Primary Care Physician Patient Instructions: Chest Pain, Adult ED Add. Discharge Instructions: Your heart tracings as well as the blood work looking for elevation of your heart enzymes were all negative. If this was a heart attack or heart blockage you should have had continued pain and an elevation in the troponin. Try to stay well-hydrated and get plenty of rest. Use a humidifier at the bedside to help with cough and congestion. Call Dr. Plasencia on Monday about follow-up for recurrent chest pains. All discharge instructions reviewed with patient and/or family. Voiced understanding. LEIGH ANGEL MD Oct 16, 2022 00:42
[2022-10-16 00:49] LABS: ALANINE AMINOTRANSFERASE 12 U/L (0-55); ALBUMIN 4.1 GM/DL (3.2-4.5); ALKALINE PHOSPHATASE 108 U/L (40-136); BILIRUBIN,TOTAL 0.3 MG/DL (0.1-1.0); BUN/CREATININE RATIO 16; CALCIUM 9.5 MG/DL (8.5-10.1); CARBON DIOXIDE 29 MMOL/L (21-32); CHLORIDE 101 MMOL/L (98-107); CREATININE SERUM 1.05 MG/DL (0.60-1.30); GFR ESTIMATED 68; GLUCOSE 110 MG/DL (70-105); LIPASE 22 U/L (8-78); MAGNESIUM 1.7 MG/DL (1.6-2.4); POTASSIUM 2.9 MMOL/L (3.6-5.0); SODIUM 141 MMOL/L (135-145)
[2022-10-16 00:52] LABS: INR 0.9 (0.8-1.4); PROTHROMBIN TIME PATIENT 12.7 SEC (12.2-14.7)
[2022-10-16 01:00] LABS: FIBRIN DEGRADATION PRODUCTS 0.29 UG/ML (0.00-0.49)
[2022-10-16 01:05] LABS: BASOPHILS % (MANUAL) 1 %; EOSINOPHILS % (MANUAL) 2 %; LYMPHOCYTES % (MANUAL) 40 %; MONOCYTES % (MANUAL) 6 %; NEUTROPHILS % (MANUAL) 51 %
[2022-10-16] MEDS ORDERED: NS IV 1000 ML 1,000 ML IV STA (02:13)
[2022-10-16] MEDS ORDERED: RT-ALBUTEROL/IPRATROPIUM 3 ML (DUONEB) VIAL INH STA (04:00)
[2022-10-16] MEDS ORDERED: morphine INJ 10 MG/ML 1ML (SYR OR VIAL) IVP STA (04:00)
[2022-10-16 05:11] VITALS: BP 97/58
--- NOTE | 2022-10-16 06:25 | Diagnostic Imaging Report ---
INDICATION: Chest pain and dyspnea. COMPARISON: 05/20/2022. DISCUSSION: Single portable upright view of the chest was obtained. Cardiomegaly and central venous congestion is stable. Elevated right hemidiaphragm is stable. No new consolidation, pleural fluid, or pneumothorax. No osseous abnormality. IMPRESSION: 1. No acute cardiopulmonary process. Dictated by: Dictated on workstation # [id number]
== END 2022-10-16 05:21 | disposition home or self-care (01) ==
LOC: EDUNIT# 00:20 → ER FS 00:21
DX: R07.89 Other chest pain (principal); D72.829 Elevated white blood cell count, unspecified; I45.10 Unspecified right bundle-branch block; R00.1 Bradycardia, unspecified; F17.210 Nicotine dependence, cigarettes, uncomplicated; E66.01 Morbid (severe) obesity due to excess calories; Z28.310 Unvaccinated for COVID-19
CPT/HCPCS: 36415; 71045; 80053; 83690; 83735; 83880; 84484; 85007; 85027; 85379; 85610; 85730; 93041

== ENCOUNTER 2022-11-18 00:04 | Emergency (ER) | payer MEDICAID ==
[~2022-11-18] VITALS: Ht 152 cm; Wt 117.6 kg
[2022-11-18 00:25] VITALS: BP 127/57
[2022-11-18] MEDS ORDERED: KETOROLAC 15 MG/ML VIAL IM ONE (00:45)
[2022-11-18] MEDS ORDERED: HYDROcodone/APAP 5 MG/325 MG (LORTAB) TAB PO ONE (00:45)
--- NOTE | 2022-11-18 00:47 | ED Fall/Injury ---
General Stated Complaint: R HIP PAIN Source: patient, old records Exam Limitations: no limitations History of Present Illness Date Seen by Provider: Nov 18, 2022 Time Seen by Provider: 00:06 Initial Comments 42-year-old female with past medical history most notable for chronic low back pain coming in due to low back pain. 1 week ago, tripped backwards, landed and hit a couch. Had some sacral and lower lumbar pain. Has been ambulatory since the incident. Started feeling better shortly afterwards. Pain worsened tonight after she bent over and felt it pull. Does not radiate anywhere significantly. Denies any weakness or numbness. Denies any bowel or bladder issues, no fever, no new trauma. Otherwise denying any other acute complaints. Allergies and Home Medications Allergies Coded Allergies: gabapentin (Verified Allergy, Unknown, 01/25/19) metoclopramide (Unverified Allergy, Unknown, "CAUSES PT TO LOSE CONTROL OF MUSCLES", 01/25/19) Patient Home Medication List Home Medication List Reviewed: Yes Acetaminophen (Tylenol Extra Strength) 500 Mg Tablet, 1,000 MG PO Q8H PRN for PAIN-MILD (1-4), (Reported) Entered as Reported by: KEILY JONES on 12/28/21 1045 Aspirin (Aspirin EC) 81 Mg Tablet.dr, 81 MG PO DAILY, (Reported) Entered as Reported by: DC CANSECO on 11/04/21 0835 Atenolol (Atenolol) 50 Mg Tablet, 50 MG PO BID, (Reported) Entered as Reported by: DC CANSECO on 11/04/21 0835 Atorvastatin Calcium (Atorvastatin Calcium) 10 Mg Tablet, 10 MG PO HS, (Reported) Entered as Reported by: DC CANSECO on 11/04/21 0835 Buspirone HCl (Buspirone HCl) 15 Mg Tablet, 15 MG PO TID, (Reported) Entered as Reported by: DC CANSECO on 11/04/21 0835 Cephalexin (Cephalexin) 500 Mg Tablet, 500 MG PO TID Prescribed by: FADY DOE MD on 03/30/222136 Diphenhydramine HCl (Benadryl Allergy) 25 Mg Tablet, 50 MG PO BID, (Reported) Entered as Reported by: KEILY JONES on 12/28/21 1045 Estradiol (Estradiol Tablet) 1 Mg Tablet, 1 MG PO DAILY, (Reported) Entered as Reported by: MADDY DANIELLE on 05/20/19 1327 Ethosuximide (Ethosuximide) 250 Mg Capsule, 250 MG PO HS, (Reported) Entered as Reported by: MADDY DANIELLE on 04/12/16 0942 Fluoxetine HCl (Fluoxetine HCl) 40 Mg Capsule, 80 MG PO DAILY, (Reported) Entered as Reported by: LILIBETH DOUGLAS on 01/26/19 0349 Hydrochlorothiazide (Hydrochlorothiazide) 12.5 Mg Tablet, 12.5 MG PO DAILY, (Reported) Entered as Reported by: DC CANSECO on 11/04/21 0835 Hydroxyzine HCl (Hydroxyzine HCl) 25 Mg Tablet, 25 MG PO TID PRN for ANXIETY, (Reported) Entered as Reported by: DC CANSECO on 11/04/21 0835 Ibuprofen (Ibuprofen) 600 Mg Tablet, 600 MG PO Q6H PRN for PAIN-MILD Prescribed by: TONY GOFF on 10/04/22 220 Isosorbide Mononitrate (Isosorbide Mononitrate ER) 60 Mg Tab, 60 MG PO DAILY, (Reported) Entered as Reported by: KEILY JONES on 12/28/21 104 Lidocaine (Lidocaine 5% Patch) 5 % Adh..patch, 1 EACH TP Q12H PRN for Neuropathic pain Prescribed by: TONY GOFF on 10/04/22 220 Lisinopril (Lisinopril) 20 Mg Tablet, 20 MG PO BID, (Reported) Entered as Reported by: MADDY DANIELLE on 05/20/19 1324 Nitroglycerin (Nitroglycerin) 0.4 Mg Tab.subl, 0.4 MG SL UD PRN for CHEST PAIN, (Reported) Entered as Reported by: KEILY JONES on 12/28/21 1042 Pantoprazole Sodium (Pantoprazole Sodium) 40 Mg Tablet.dr, 40 MG PO BID Prescribed by: RAHEEM LI JR, MD on 12/29/21 1221 Pregabalin (Pregabalin) 150 Mg Capsule, 150 MG PO TID, (Reported) Entered as Reported by: DC CANSECO on 11/04/21 0835 Promethazine HCl (Promethazine Suppository) 25 Mg Supp.rect, 25 MG RC Q6H PRN for NAUSEA/VOMITING-2ND LINE Prescribed by: TONY GOFF on 05/03/22 1028 Ranolazine (Ranexa) 500 Mg Tab.er.12h, 1,000 MG PO BID Prescribed by: RAHEEM LI JR, MD on 12/29/21 1221 Tizanidine HCl (Tizanidine HCl) 4 Mg Tablet, 4 MG PO TID PRN for MUSCLE SPASMS, (Reported) Entered as Reported by: KEILY JONES on 12/28/21 1042 Review of Systems Review of Systems Constitutional: No fever Eyes: No Symptoms Reported Ears, Nose, Mouth, Throat: no symptoms reported Respiratory: no symptoms reported Cardiovascular: no symptoms reported Gastrointestinal: no symptoms reported Genitourinary: no symptoms reported Musculoskeletal: see HPI Skin: no symptoms reported Psychiatric/Neurological: No Symptoms Reported Past Dhzvpol-Asygcv-Imudtf Hx Immunizations Up To Date Tetanus Booster (TDap): Unknown First/Initial COVID19 Vaccinat: None Second COVID19 Vaccination Suhas: None Third COVID19 Vaccination Date: None Seasonal Allergies Seasonal Allergies: Yes Past Medical History Surgery/Hospitalization HX: HYST, LAP DANIA, x 3, TUBAL, NARCOLEPSY, ANXIETY, COPD, ASTHMA, HTN, MORBID OBESITY, coronary artery disease Surgeries: Yes (dental extractions, dxls, bmt, 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, LEFT EAR) Section, Ear Surgery, Gallbladder, Hysterectomy, Orthopedic, 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 Respiratory: Yes Asthma, COPD Currently Using CPAP: No Currently Using BIPAP: No Cardiac: Yes Coronary Artery Disease, Heart Murmur, Hypertension, Irregular Heartbeat Neurological: Yes Headaches /Migraines, Seizure Disorder 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 Disorders: Yes Female 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 Disorders: 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 0oz. [id number]; 51.00 BMI Method:Stated General Appearance: WD/WN, no apparent distress HEENT: PERRL/EOMI, normal ENT inspection, pharynx normal Neck: non-tender, full range of motion, supple, normal inspection Cardiovascular: regular rate, rhythm, no edema Respiratory: chest non-tender, lungs clear, normal breath sounds, no respiratory distress, no accessory muscle use Gastrointestinal: normal bowel sounds, non tender, soft; No distended, No guarding, No rebound Back: normal inspection, no CVA tenderness, no vertebral tenderness, other (Paravertebral tenderness on the right lower back) Extremities: normal range of motion, non-tender, normal inspection, no pedal edema, no calf tenderness, normal capillary refill Neurologic/Psychiatric: no motor/sensory deficits, alert, normal mood/affect, other (Normal gait) Skin: normal color, warm/dry Progress/Results/Core Measures Results/Orders My Orders Orders - TONY OGFF MD Lumbar Spine 2 Or 3 View (11/18/22 00:42) Hydrocodone/Apap 5/325 Tablet (Lortab 5 (11/18/22 00:45) Ketorolac Injection (Toradol Injection) (11/18/22 00:45) Medications Given in ED Current Medications Medications Dose Ordered Sig/Brissa Route Start Time Stop Time Status Last Admin Dose Admin Acetaminophen/ Hydrocodone Bitart 1 ea ONCE ONCE PO 11/18/22 00:45 11/18/22 00:46 DC 11/18/22 00:49 1 EA Ketorolac Tromethamine 15 mg ONCE ONCE IM 11/18/22 00:45 11/18/22 00:46 DC 11/18/22 00:49 15 MG Progress Progress Note : Progress Note 42-year-old female presenting for acute on chronic low back pain. ABCs were intact and vitals were stable on presentation. Physical exam with no significant concerns other than paravertebral tenderness on the right lower back. X-ray ordered and interpreted by me showing no clinically significant fracture or dislocation. She continues to ambulate without difficulty in the ER. She was given hydrocodone followed by IM Toradol for pain. I believe she is otherwise stable for discharge with outpatient follow-up. She was sent home with strict return precautions. Prescription sent for muscle relaxer Diagnostic Imaging Diagonstic Imaging: Xray (lumbar) Departure Impression Primary Impression: Fall Qualified Codes: W19.XXXA - Unspecified fall, initial encounter Additional Impression: Acute exacerbation of chronic low back pain Disposition: HOME, SELF-CARE Condition: Stable Departure-Patient Inst. Decision time for Depature: 01:30 Referrals: JESSICA RIZZO AMANDA S APRN (PCP) Primary Care Physician Patient Instructions: Low Back Pain ED Add. Discharge Instructions: Fortunately we do not see any clinically significant fracture in your back. We would like you to follow-up with Bhavik Rizzo here in town regarding your back pain. A muscle relaxer will be sent to your pharmacy. Otherwise take [id number] ibuprofen and/or Tylenol as needed for pain. Scripts Cyclobenzaprine HCl (Cyclobenzaprine HCl) 10 Mg Tablet 10 MG PO Q8H PRN for SPASMS for 5 Days, #15 TAB 0 Refills Prov: TONY GOFF MD 11/18/22 Work/School Note: Work Release Form Date Seen in the Emergency Department: Nov 18, 2022 Return to Work: Nov 19, 2022 Restrictions: No Restrictions TONY GOFF MD Nov 18, 2022 00:47
[2022-11-18] MEDS ORDERED: CYCL10TA25 PO (01:21)
--- NOTE | 2022-11-18 07:13 | Diagnostic Imaging Report ---
EXAMINATION: Lumbar spine radiographs, 3 views. COMPARISON: November 02, 2021. HISTORY: 42-year-old female, fall one week ago. Low back pain. 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 There are 5 lumbar-type vertebral bodies. The sacral iliac joints are unremarkable in appearance. S1-S2 is labeled as having a rudimentary disc space. There are mild disc degenerative changes of the thoracolumbar spine. There is no identified compression deformity or fracture. There are vascular calcifications. Multiple pelvic calcifications likely reflect phleboliths. IMPRESSION: 1. Transitional lumbosacral anatomy as above. 2. Multilevel mild disc degenerative changes of the thoracolumbar spine. 3. No identified compression deformity or fracture. Dictated by: Dictated on workstation # [id number]
== END 2022-11-18 01:25 | disposition home or self-care (01) ==
LOC: EDUNIT# 00:04 → ER FS 00:05
DX: M54.50 Low back pain, unspecified (principal); G89.29 Other chronic pain; E66.01 Morbid (severe) obesity due to excess calories; Z68.43 Body mass index [BMI] 50.0-59.9, adult; Z28.310 Unvaccinated for COVID-19; W01.198A Fall on same level from slipping, tripping and stumbling with subsequent striking against other object, initial encounter
CPT/HCPCS: 72100

== ENCOUNTER 2022-12-06 00:23 | Emergency (ER) | payer MEDICAID ==
[~2022-12-06] VITALS: Ht 152.4 cm; Wt 117.0 kg
[2022-12-06 00:26] VITALS: BP 127/73
[2022-12-06 00:47] LABS: BASOPHILS # (AUTO) 0.1 10^3/uL (0.0-0.1); BASOPHILS % (AUTO) 0 % (0-10); EOSINOPHILS # (AUTO) 0.2 10^3/uL (0.0-0.3); EOSINOPHILS % (AUTO) 2 % (0-10); HEMATOCRIT 36 % (35-52); HEMOGLOBIN 11.9 g/dL (11.5-16.0); LYMPHOCYTES # (AUTO) 4.3 10^3/uL (1.0-4.0); LYMPHOCYTES % (AUTO) 32 % (12-44); MEAN CORPUSCULAR HEMOGLOBIN 29 pg (25-34); MEAN CORPUSCULAR HGB CONC 33 g/dL (32-36); MEAN CORPUSCULAR VOLUME 88 fL (80-99); MEAN PLATELET VOLUME 9.8 fL (9.0-12.2); MONOCYTES # (AUTO) 0.6 10^3/uL (0.0-1.0); MONOCYTES % (AUTO) 4 % (0-12); NEUTROPHILS # (AUTO) 8.3 10^3/uL (1.8-7.8); NEUTROPHILS % (AUTO) 61 % (42-75); PLATELET COUNT 348 10^3/uL (130-400); WHITE BLOOD COUNT 13.5 10^3/uL (4.3-11.0)
--- NOTE | 2022-12-06 00:52 | ED Chest Pain ---
General Chief Complaint: Chest Pain Stated Complaint: CHEST PAIN|HEAD ACHE| TROUBLE BREATHING Nursing Triage Note: Pt presents with c/o chest pain and headache. She states she began not feeling well around 1930 tonight, she took her medication and went to bed. She then woke up around 2100 with chest pressure and headache. Pt states she took a nitro at 2330, it helped the pain for a short time, and it returned. Source: patient, old records Exam Limitations: no limitations History of Present Illness Date Seen by Provider: Dec 06, 2022 Time Seen by Provider: 00:32 Initial Comments 42-year-old female patient with history of frequent emergency room visits, hypertension, hyperlipidemia, morbid obesity with BMI more than 50%, COPD, anxiety and depression, asthma, narcolepsy and coronary artery disease presented POV with complaining of chest pain. Patient stated she did not feel good around 1930 last night and went to bed earlier and woke up around 2100 with substernal pressure chest pain with headache and shortness of breath and nausea and dizziness and rated her pain 4/10. Patient stated the pain gradually increased to 8/10. Patient took nitro around 2330 with partial improvement of her pain but the pain increased again. Patient stated the pain getting worse with taking deep breaths. Patient had baby aspirin in the morning. Patient denies fever and chills, new cough, diarrhea and constipation, urinary symptoms. Patient was seen in this emergency room with chest pain on October 16 with extensive cardiac evaluation and several negative troponin. 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 Allergies and Home Medications Allergies Coded Allergies: gabapentin (Verified Allergy, Unknown, 01/25/19) metoclopramide (Unverified Allergy, Unknown, "CAUSES PT TO LOSE CONTROL OF MUSCLES", 01/25/19) Patient Home Medication List Home Medication List Reviewed: Yes Acetaminophen (Tylenol Extra Strength) 500 Mg Tablet, 1,000 MG PO Q8H PRN for PAIN-MILD (1-4), (Reported) Entered as Reported by: KEILY JONES on 12/28/21 1045 Aspirin (Aspirin EC) 81 Mg Tablet.dr, 81 MG PO DAILY, (Reported) Entered as Reported by: DC CANSECO on 11/04/21 0835 Atenolol (Atenolol) 50 Mg Tablet, 50 MG PO BID, (Reported) Entered as Reported by: DC CANSECO on 11/04/21 0835 Atorvastatin Calcium (Atorvastatin Calcium) 10 Mg Tablet, 10 MG PO HS, (Reported) Entered as Reported by: DC CANSECO on 11/04/21 0835 Buspirone HCl (Buspirone HCl) 15 Mg Tablet, 15 MG PO TID, (Reported) Entered as Reported by: DC CANSECO on 11/04/21 0835 Cephalexin (Cephalexin) 500 Mg Tablet, 500 MG PO TID Prescribed by: FADY DOE MD on 03/30/22 2137 Cyclobenzaprine HCl (Cyclobenzaprine HCl) 10 Mg Tablet, 10 MG PO Q8H PRN for SPASMS Prescribed by: TONY GOFF on 11/18/22 0121 Diphenhydramine HCl (Benadryl Allergy) 25 Mg Tablet, 50 MG PO BID, (Reported) Entered as Reported by: KEILY JONES on 12/28/21 1045 Estradiol (Estradiol Tablet) 1 Mg Tablet, 1 MG PO DAILY, (Reported) Entered as Reported by: MADDY DANIELLE on 05/20/19 1327 Ethosuximide (Ethosuximide) 250 Mg Capsule, 250 MG PO HS, (Reported) Entered as Reported by: MADDY DANIELLE on 04/12/16 0942 Fluoxetine HCl (Fluoxetine HCl) 40 Mg Capsule, 80 MG PO DAILY, (Reported) Entered as Reported by: LILIBETH DOUGLAS on 01/26/19 0349 Hydrochlorothiazide (Hydrochlorothiazide) 12.5 Mg Tablet, 12.5 MG PO DAILY, (Reported) Entered as Reported by: DC CANSECO on 11/04/21 0835 Hydroxyzine HCl (Hydroxyzine HCl) 25 Mg Tablet, 25 MG PO TID PRN for ANXIETY, (Reported) Entered as Reported by: DC CANSECO on 11/04/21 0835 Ibuprofen (Ibuprofen) 600 Mg Tablet, 600 MG PO Q6H PRN for PAIN-MILD Prescribed by: TONY GOFF on 10/04/22 2202 Isosorbide Mononitrate (Isosorbide Mononitrate ER) 60 Mg Tab, 60 MG PO DAILY, (Reported) Entered as Reported by: KEILY JONES on 12/28/21 1042 Lidocaine (Lidocaine 5% Patch) 5 % Adh..patch, 1 EACH TP Q12H PRN for Neuropathic pain Prescribed by: TONY GOFF on 10/04/22 2202 Lisinopril (Lisinopril) 20 Mg Tablet, 20 MG PO BID, (Reported) Entered as Reported by: MADDY DANIELLE on 05/20/19 1324 Nitroglycerin (Nitroglycerin) 0.4 Mg Tab.subl, 0.4 MG SL UD PRN for CHEST PAIN, (Reported) Entered as Reported by: KEILY JONES on 12/28/21 1042 Pantoprazole Sodium (Pantoprazole Sodium) 40 Mg Tablet.dr, 40 MG PO BID Prescribed by: RAHEEM LI JR, MD on 12/29/21 1221 Pregabalin (Pregabalin) 150 Mg Capsule, 150 MG PO TID, (Reported) Entered as Reported by: DC CANSECO on 11/04/21 0835 Promethazine HCl (Promethazine Suppository) 25 Mg Supp.rect, 25 MG RC Q6H PRN for NAUSEA/VOMITING-2ND LINE Prescribed by: TONY GOFF on 05/03/22 1028 Ranolazine (Ranexa) 500 Mg Tab.er.12h, 1,000 MG PO BID Prescribed by: RAHEEM LI JR, MD on 12/29/21 1221 Tizanidine HCl (Tizanidine HCl) 4 Mg Tablet, 4 MG PO TID PRN for MUSCLE SPASMS, (Reported) Entered as Reported by: KEILY JONES on 12/28/21 1042 Review of Systems Review of Systems Constitutional: see HPI EENTM: No Symptoms Reported Respiratory: See HPI Cardiovascular: See HPI Gastrointestinal: See HPI Genitourinary: No Symptoms Reported Musculoskeletal: see HPI Psychiatric/Neurological: See HPI Endocrine: No Symptoms Reported All Other Systems Reviewed Negative Unless Noted: Yes Past Tgbsnka-Kxwkjo-Fyejqj Hx Immunizations Up To Date Tetanus Booster (TDap): Unknown Influenza Vaccine Up-to-Date: No; Not Current First/Initial COVID19 Vaccinat: unk Second COVID19 Vaccination Suhas: unk Third COVID19 Vaccination Date: unk Seasonal Allergies Seasonal Allergies: Yes Past Medical History Surgery/Hospitalization HX: HYST, LAP DANIA, x 3, TUBAL, NARCOLEPSY, ANXIETY, COPD, ASTHMA, HTN, MORBID OBESITY, coronary artery disease Surgeries: Yes (dental extractions, dxls, bmt, 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, LEFT EAR) Section, Ear Surgery, Gallbladder, Hysterectomy, Orthopedic, 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 Respiratory: Yes Asthma, COPD Currently Using CPAP: No Currently Using BIPAP: No Cardiac: Yes Coronary Artery Disease, Heart Murmur, Hypertension, Irregular Heartbeat Neurological: Yes Headaches /Migraines, Seizure Disorder 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 Disorders: Yes Female 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 Disorders: 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, 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 Sexually Transmitted Disease: No Genitourinary: Yes Kidney Stones Gastrointestinal: Yes Colitis, Gastroesophageal Reflux, Diverticulosis, Hemorrhoids, Polyps, Hiatal Hernia, Ulcer Musculoskeletal: Yes (spina bifida) Arthritis, Scoliosis, Chronic Back Pain Endocrine: No HEENT: Yes Chronic Ear Infection Hearing Impairment: Denies, Hard of Hearing Cancer: No Psychosocial: Yes Anxiety, Depression Integumentary: No Blood Disorders: No Family Medical History No Pertinent Family Hx Physical Exam Vital Signs Vital Signs - First Documented 12/06/22 00:26 Temp 36.6 Pulse 72 Resp 16 B/P (MAP) 127/73 (91) Capillary Refill : Less Than 3 Seconds Height, Weight, BMI Height: 5'0" Weight: 235lbs. 0oz. 106.386987fj; 50.00 BMI Method:Stated General Appearance: No Apparent Distress, Obese (Morbidly) HEENT: PERRL/EOMI Neck: Full Range of Motion, Normal Inspection, Non Tender Respiratory: Lungs Clear, Normal Breath Sounds, No Accessory Muscle Use, Other (Reproducible chest pain) Cardiovascular: Regular Rate, Rhythm, No Edema, No Gallop, No JVD Gastrointestinal: Normal Bowel Sounds, No Organomegaly Extremity: Normal Capillary Refill, Normal Inspection, Normal Range of Motion, Non Tender Neurologic/Psychiatric: Alert, Oriented x3 Skin: Normal Color Critical Care Note Critical Care Total Time (minutes) 65 Progress/Results/Core Measures Results/Orders Lab Results Laboratory Tests Test 12/06/22 00:38 Range/Units White Blood Count 13.5 H 4.3-11.0 10^3/uL Red Blood Count 4.10 3.80-5.11 10^6/uL Hemoglobin 11.9 11.5-16.0 g/dL Hematocrit 36 35-52 % Mean Corpuscular Volume 88 80-99 fL Mean Corpuscular Hemoglobin 29 25-34 pg Mean Corpuscular Hemoglobin Concent 33 32-36 g/dL Red Cell Distribution Width 14.8 H 10.0-14.5 % Platelet Count 348 130-400 10^3/uL Mean Platelet Volume 9.8 9.0-12.2 fL Immature Granulocyte % (Auto) 1 % Neutrophils (%) (Auto) 61 42-75 % Lymphocytes (%) (Auto) 32 12-44 % Monocytes (%) (Auto) 4 0-12 % Eosinophils (%) (Auto) 2 0-10 % Basophils (%) (Auto) 0 0-10 % Neutrophils # (Auto) 8.3 H 1.8-7.8 10^3/uL Lymphocytes # (Auto) 4.3 H 1.0-4.0 10^3/uL Monocytes # (Auto) 0.6 0.0-1.0 10^3/uL Eosinophils # (Auto) 0.2 0.0-0.3 10^3/uL Basophils # (Auto) 0.1 0.0-0.1 10^3/uL Immature Granulocyte # (Auto) 0.1 0.0-0.1 10^3/uL Neutrophils % (Manual) 67 % Lymphocytes % (Manual) 20 % Monocytes % (Manual) 1 % Band Neutrophils 2 % Atypical Lymphocytes 1 % Reactive Lymphocytes 9 % Toxic Granulation 2+ Platelet Estimate NORMAL Blood Morphology Comment NORMAL Prothrombin Time 12.7 12.2-14.7 SEC INR Comment 0.9 0.8-1.4 Activated Partial Thromboplast Time 27 24-35 SEC Sodium Level 142 135-145 MMOL/L Potassium Level 2.9 L 3.6-5.0 MMOL/L Chloride Level 101 98-107 MMOL/L Carbon Dioxide Level 29 21-32 MMOL/L Anion Gap 12 5-14 MMOL/L Blood Urea Nitrogen 16 7-18 MG/DL Creatinine 1.04 0.60-1.30 MG/DL Estimat Glomerular Filtration Rate 68 BUN/Creatinine Ratio 15 Glucose Level 112 H 70-105 MG/DL Calcium Level 9.0 8.5-10.1 MG/DL Corrected Calcium 9.1 8.5-10.1 MG/DL Total Bilirubin 0.2 0.1-1.0 MG/DL Aspartate Amino Transf (AST/SGOT) 22 5-34 U/L Alanine Aminotransferase (ALT/SGPT) 12 0-55 U/L Alkaline Phosphatase 146 H 40-136 U/L Troponin I < 0.30 <0.30 NG/ML Total Protein 7.0 6.4-8.2 GM/DL Albumin 3.9 3.2-4.5 GM/DL Smear Scan REACTIVE LYMPH NOTED My Orders Orders - RAQUEL HOLLAND MD Cbc With Automated Diff (12/06/22 00:39) Chest 1 View Ap/Pa Only (12/06/22 00:39) Ekg Tracing (12/06/22 00:39) Comprehensive Metabolic Panel (12/06/22 00:39) Protime With Inr (12/06/22 00:39) Partial Thromboplastin Time (12/06/22 00:39) Monitor-Rhythm Ecg Trace Only (12/06/22 00:39) Ed Iv/Invasive Line Start (12/06/22 00:39) Troponin I Fs (12/06/22 00:39) Manual Differential (12/06/22 00:38) Aspirin Chewable Tablet (Baby Aspirin Ch (12/06/22 01:15) Aspirin Chewable Tablet (Baby Aspirin Ch (12/06/22 01:19) Potassium Chloride (Tablet) (K Dur Table (12/06/22 01:45) Pantoprazole Injection (Protonix Injecti (12/06/22 01:45) Medications Given in ED Current Medications Medications Dose Ordered Sig/Brissa Route Start Time Stop Time Status Last Admin Dose Admin Aspirin 324 mg ONCE ONCE PO 12/06/22 01:15 12/06/22 01:21 DC 12/06/22 01:18 324 MG Vital Signs/I&O 12/06/22 00:26 Temp 36.6 Pulse 72 Resp 16 B/P (MAP) 127/73 (91) Blood Pressure Mean: 91 Progress Progress Note : Progress Note Patient with frequent ER visit and GABRIELLE score of 2 complaining of chest pain for 4 hours prior to arrival to ER. Patient had unremarkable physical exam except for morbid obesity. Patient had a stable vital sign. CBC, CMP, troponin, coagulation panel was ordered and reviewed by me and showed white count of 13,000 and potassium of 2.9 with normal troponin. Alkaline phosphatase was mildly elevated. Chest x-ray did not show acute finding. EKG showed no new changes compared to previous EKGs. 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 Initial ECG Impression Date: Dec 06, 2022 Initial ECG Impression Time: 00:29 Initial ECG Rate: 69 Initial ECG Rhythm: Normal Sinus Initial ECG Intervals: Normal Initial ECG Intervals EKG interpreted by me. EKG showed sinus rhythm with sinus arrhythmia, ID interval of 187, QT interval of 427 and QTc interval of 445, QRS duration of 112, low QRS voltage in precordial leads, ST depression in anteroseptal leads unchanged from previous EKG on October 16, 2022, no acute ST and T wave elevation. Diagnostic Imaging Diagonstic Imaging: Xray Plain Films/CT/US/NM/MRI: chest Comments 1 view chest x-ray interpreted by me and did not show acute finding. Departure Impression Primary Impression: Recurrent chest pain Additional Impressions: Morbid obesity Tobacco abuse Hypokalemia Elevated liver function tests Disposition: HOME, SELF-CARE Condition: Stable Departure-Patient Inst. Decision time for Depature: 01:37 Referrals: MAYKEL CUMMINS APRN (PCP/Family) Primary Care Physician Patient Instructions: Chest Pain That Is Not Caused by the Heart (DC), Diet and health, Hypokalemia Add. Discharge Instructions: Take home potassium twice a day for 1 week instead of once a day Continue home medication Follow-up with your certified shorthand reporter in 2 to 3 days Follow-up with your primary care physician as needed Return to ER as needed All discharge instructions reviewed with patient and/or family. Voiced understanding. RAQUEL HOLLAND MD Dec 06, 2022 00:52
[2022-12-06 01:02] LABS: SMEAR SCAN COMMENT REACTIVE LYMPH NOTED
[2022-12-06 01:06] LABS: ATYPICAL LYMPHOCYTES 1 %; BAND NEUTROPHILS 2 %; LYMPHOCYTES % (MANUAL) 20 %; MONOCYTES % (MANUAL) 1 %; NEUTROPHILS % (MANUAL) 67 %; PLATELET ESTIMATE NORMAL; RBC MORPH NORMAL; REACTIVE LYMPHOCYTES 9 %
[2022-12-06 01:07] LABS: TOXIC GRANULATION/VACUOLAZATIO 2+
[2022-12-06] MEDS ORDERED: ASPIRIN 81 MG CHEWABLE TABLET PO ONE (01:15)
[2022-12-06 01:16] LABS: INR 0.9 (0.8-1.4); PROTHROMBIN TIME PATIENT 12.7 SEC (12.2-14.7)
[2022-12-06] MEDS ORDERED: ASPIRIN 81 MG CHEWABLE TABLET ONE (01:19)
[2022-12-06 01:26] LABS: ALKALINE PHOSPHATASE 146 U/L (40-136); BILIRUBIN,TOTAL 0.2 MG/DL (0.1-1.0); BUN/CREATININE RATIO 15; CARBON DIOXIDE 29 MMOL/L (21-32); CHLORIDE 101 MMOL/L (98-107); CREATININE SERUM 1.04 MG/DL (0.60-1.30); GFR ESTIMATED 68; GLUCOSE 112 MG/DL (70-105); POTASSIUM 2.9 MMOL/L (3.6-5.0); SODIUM 142 MMOL/L (135-145)
[2022-12-06 01:27] LABS: ALANINE AMINOTRANSFERASE 12 U/L (0-55); ALBUMIN 3.9 GM/DL (3.2-4.5)
[2022-12-06] MEDS ORDERED: KCL 20 MEQ TAB (K-DUR) PO ONE (01:45)
[2022-12-06] MEDS ORDERED: PANTOPRAZOLE 40 MG (PROTONIX) VIAL IV ONE (01:45)
--- NOTE | 2022-12-06 07:52 | Diagnostic Imaging Report ---
Indication: Chest pain Portable AP upright view of the chest is obtained with comparison made to study of 10/16/2022. FINDINGS: Heart size and pulmonary vascularity are within normal limits, and the lungs are clear, bilaterally. IMPRESSION: Unremarkable chest. Dictated by: Dictated on workstation # [id number]
== END 2022-12-06 01:54 | disposition home or self-care (01) ==
LOC: EDUNIT# 00:23 → ER FS 00:26
DX: R07.89 Other chest pain (principal); E87.6 Hypokalemia; R74.8 Abnormal levels of other serum enzymes; I49.8 Other specified cardiac arrhythmias; E66.01 Morbid (severe) obesity due to excess calories; Z72.0 Tobacco use; Z68.43 Body mass index [BMI] 50.0-59.9, adult
CPT/HCPCS: 36415; 71045; 80053; 84484; 85007; 85027; 85610; 85730; 93005; 93041

== ENCOUNTER 2022-12-08 04:07 | Emergency (ER) | payer MEDICAID ==
[~2022-12-08] VITALS: Ht 157.5 cm; Wt 118.0 kg
[2022-12-08] MEDS ORDERED: FAMOTIDINE 20 MG (PEPCID) TABLET PO STA (04:14)
[2022-12-08] MEDS ORDERED: ANTACID SUSP 30 ML UDC (MYLANTA) PO ONE (04:15)
[2022-12-08] MEDS ORDERED: NITROGLYCERIN 2% OINT 1 GM UNIT DOSE PACKET TOP ONE (04:15)
[2022-12-08] MEDS ORDERED: ASPIRIN 81 MG CHEWABLE TABLET PO ONE (04:15)
[2022-12-08] MEDS ORDERED: RT-ALBUTEROL/IPRATROPIUM 3 ML (DUONEB) VIAL ONE (04:21)
[2022-12-08 04:27] LABS: BASOPHILS # (AUTO) 0.1 10^3/uL (0.0-0.1); BASOPHILS % (AUTO) 1 % (0-10); EOSINOPHILS # (AUTO) 0.2 10^3/uL (0.0-0.3); EOSINOPHILS % (AUTO) 2 % (0-10); HEMATOCRIT 40 % (35-52); LYMPHOCYTES # (AUTO) 4.5 10^3/uL (1.0-4.0); LYMPHOCYTES % (AUTO) 30 % (12-44); MEAN CORPUSCULAR HEMOGLOBIN 29 pg (25-34); MEAN CORPUSCULAR HGB CONC 33 g/dL (32-36); MEAN CORPUSCULAR VOLUME 89 fL (80-99); MEAN PLATELET VOLUME 9.7 fL (9.0-12.2); MONOCYTES # (AUTO) 0.7 10^3/uL (0.0-1.0); MONOCYTES % (AUTO) 5 % (0-12); NEUTROPHILS # (AUTO) 9.6 10^3/uL (1.8-7.8); NEUTROPHILS % (AUTO) 63 % (42-75); PLATELET COUNT 385 10^3/uL (130-400); WHITE BLOOD COUNT 15.2 10^3/uL (4.3-11.0)
--- NOTE | 2022-12-08 04:29 | ED Chest Pain ---
General Stated Complaint: CHEST PAIN|NAUSEA|WEAKNESS|SOB Source: patient, old records Exam Limitations: no limitations History of Present Illness Date Seen by Provider: Dec 08, 2022 Time Seen by Provider: 04:10 Initial Comments 42-year-old female with past medical history of hypertension, hyperlipidemia, morbid obesity with BMI, COPD, anxiety and depression, asthma, narcolepsy and coronary artery disease coming in due to chest pressure. Started around 2:45 in the morning after he had woken up. Has been constant since then. She took nitro x2 which did have some relief. She has not taken her medicines yet this morning. Denies any lower extremity swelling or pain, no prior history of DVT or PE, no recent surgery, no hemoptysis, no fever, abdominal pain, weakness, numbness, or any other concerns. The pain is similar to the discomfort she has had numerous times over the past couple months. Allergies and Home Medications Allergies Coded Allergies: gabapentin (Verified Allergy, Unknown, 01/25/19) metoclopramide (Unverified Allergy, Unknown, "CAUSES PT TO LOSE CONTROL OF MUSCLES", 01/25/19) Patient Home Medication List Home Medication List Reviewed: Yes Acetaminophen (Tylenol Extra Strength) 500 Mg Tablet, 1,000 MG PO Q8H PRN for PAIN-MILD (1-4), (Reported) Entered as Reported by: KEILY JONES on 12/28/21 1045 Aspirin (Aspirin EC) 81 Mg Tablet.dr, 81 MG PO DAILY, (Reported) Entered as Reported by: CD CANSECO on 11/04/21 0835 Atenolol (Atenolol) 50 Mg Tablet, 50 MG PO BID, (Reported) Entered as Reported by: DC CANSECO on 11/04/21 0835 Atorvastatin Calcium (Atorvastatin Calcium) 10 Mg Tablet, 10 MG PO HS, (Reported) Entered as Reported by: DC CANSECO on 11/04/21 0835 Buspirone HCl (Buspirone HCl) 15 Mg Tablet, 15 MG PO TID, (Reported) Entered as Reported by: DC CANSECO on 11/04/21 0835 Cephalexin (Cephalexin) 500 Mg Tablet, 500 MG PO TID Prescribed by: FADY DOE MD on 03/30/222136 Cyclobenzaprine HCl (Cyclobenzaprine HCl) 10 Mg Tablet, 10 MG PO Q8H PRN for SPASMS Prescribed by: TONY GOFF on 11/18/22 0121 Diphenhydramine HCl (Benadryl Allergy) 25 Mg Tablet, 50 MG PO BID, (Reported) Entered as Reported by: KEILY JONES on 12/28/21 1045 Estradiol (Estradiol Tablet) 1 Mg Tablet, 1 MG PO DAILY, (Reported) Entered as Reported by: MADDY DANIELLE on 05/20/19 1327 Ethosuximide (Ethosuximide) 250 Mg Capsule, 250 MG PO HS, (Reported) Entered as Reported by: MADDY DANIELLE on 04/12/16 0942 Fluoxetine HCl (Fluoxetine HCl) 40 Mg Capsule, 80 MG PO DAILY, (Reported) Entered as Reported by: LILIBETH DOUGLAS on 01/26/19 0349 Hydrochlorothiazide (Hydrochlorothiazide) 12.5 Mg Tablet, 12.5 MG PO DAILY, (Reported) Entered as Reported by: DC CANSECO on 11/04/21 0835 Hydroxyzine HCl (Hydroxyzine HCl) 25 Mg Tablet, 25 MG PO TID PRN for ANXIETY, (Reported) Entered as Reported by: DC CANSECO on 11/04/21 0835 Ibuprofen (Ibuprofen) 600 Mg Tablet, 600 MG PO Q6H PRN for PAIN-MILD Prescribed by: TONY GOFF on 10/04/222201 Isosorbide Mononitrate (Isosorbide Mononitrate ER) 60 Mg Tab, 60 MG PO DAILY, (Reported) Entered as Reported by: KEILY JONES on 12/28/21 104 Lidocaine (Lidocaine 5% Patch) 5 % Adh..patch, 1 EACH TP Q12H PRN for Neuropathic pain Prescribed by: TONY GOFF on 10/04/22 220 Lisinopril (Lisinopril) 20 Mg Tablet, 20 MG PO BID, (Reported) Entered as Reported by: MADDY DANIELLE on 05/20/19 1324 Nitroglycerin (Nitroglycerin) 0.4 Mg Tab.subl, 0.4 MG SL UD PRN for CHEST PAIN, (Reported) Entered as Reported by: KEILY JONES on 12/28/21 1042 Pantoprazole Sodium (Pantoprazole Sodium) 40 Mg Tablet.dr, 40 MG PO BID Prescribed by: RAHEEM LI JR, MD on 12/29/21 1221 Pregabalin (Pregabalin) 150 Mg Capsule, 150 MG PO TID, (Reported) Entered as Reported by: DC CANSECO on 11/04/21 0835 Promethazine HCl (Promethazine Suppository) 25 Mg Supp.rect, 25 MG RC Q6H PRN for NAUSEA/VOMITING-2ND LINE Prescribed by: TONY GOFF on 05/03/22 1028 Ranolazine (Ranexa) 500 Mg Tab.er.12h, 1,000 MG PO BID Prescribed by: RAHEEM LI JR, MD on 12/29/21 1221 Tizanidine HCl (Tizanidine HCl) 4 Mg Tablet, 4 MG PO TID PRN for MUSCLE SPASMS, (Reported) Entered as Reported by: KEILY JONES on 12/28/21 1042 Review of Systems Review of Systems Constitutional: No fever EENTM: No Symptoms Reported Respiratory: No Symptoms Reported Cardiovascular: See HPI Gastrointestinal: No Symptoms Reported Genitourinary: No Symptoms Reported Musculoskeletal: no symptoms reported Skin: no symptoms reported Psychiatric/Neurological: No Symptoms Reported Endocrine: No Symptoms Reported Hematologic/Lymphatic: No Symptoms Reported Past Onrcmaq-Oscvun-Bykebk Hx Patient Social History Tobacco Use?: Yes Tobacco type used: Cigarettes Immunizations Up To Date Tetanus Booster (TDap): Unknown First/Initial COVID19 Vaccinat: unk Second COVID19 Vaccination Suhas: unk Third COVID19 Vaccination Date: unk Seasonal Allergies Seasonal Allergies: Yes Past Medical History Surgery/Hospitalization HX: HYST, LAP DANIA, x 3, TUBAL, NARCOLEPSY, ANXIETY, COPD, ASTHMA, HTN, MORBID OBESITY, coronary artery disease Surgeries: Yes (dental extractions, dxls, bmt, 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, LEFT EAR) Section, Ear Surgery, Gallbladder, Hysterectomy, Orthopedic, 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 Respiratory: Yes Asthma, COPD Currently Using CPAP: No Currently Using BIPAP: No Cardiac: Yes Coronary Artery Disease, Heart Murmur, Hypertension, Irregular Heartbeat Neurological: Yes Headaches /Migraines, Seizure Disorder 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 Disorders: Yes Female 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 Disorders: 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: Hysterectomy, 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 Sexually Transmitted Disease: No Genitourinary: Yes Kidney Stones Gastrointestinal: Yes Colitis, Gastroesophageal Reflux, Diverticulosis, Hemorrhoids, Polyps, Hiatal Hernia, Ulcer Musculoskeletal: Yes (spina bifida) Arthritis, Scoliosis, Chronic Back Pain Endocrine: No HEENT: Yes Chronic Ear Infection Hearing Impairment: Denies, Hard of Hearing Cancer: No Psychosocial: Yes Anxiety, Depression Integumentary: No Blood Disorders: No Family Medical History No Pertinent Family Hx Physical Exam Vital Signs Vital Signs - First Documented 12/08/22 04:12 Temp 37.4 Pulse 68 Resp 18 B/P (MAP) 131/82 (98) Pulse Ox 97 O2 Delivery Room Air Capillary Refill : Height, Weight, BMI Height: 5'0" Weight: 235lbs. 0oz. 106.737391nc; 50.00 BMI Method:Stated General Appearance: No Apparent Distress, WD/WN HEENT: PERRL/EOMI, Normal ENT Inspection, Pharynx Normal Neck: Full Range of Motion, Normal Inspection, Non Tender, Supple Respiratory: Chest Non Tender, Lungs Clear, Normal Breath Sounds, No Accessory Muscle Use Cardiovascular: Regular Rate, Rhythm, No Edema, Normal Peripheral Pulses Gastrointestinal: Normal Bowel Sounds, Non Tender, Soft; No Distended, No Guarding Extremity: Normal Capillary Refill, Normal Inspection, Normal Range of Motion, Non Tender, No Calf Tenderness, No Pedal Edema Neurologic/Psychiatric: Alert, No Motor/Sensory Deficits, Normal Mood/Affect Skin: Normal Color, Warm/Dry Progress/Results/Core Measures Results/Orders Lab Results Laboratory Tests Test 12/08/22 04:15 12/08/22 05:55 Range/Units White Blood Count 15.2 H 4.3-11.0 10^3/uL Red Blood Count 4.47 3.80-5.11 10^6/uL Hemoglobin 13.0 11.5-16.0 g/dL Hematocrit 40 35-52 % Mean Corpuscular Volume 89 80-99 fL Mean Corpuscular Hemoglobin 29 25-34 pg Mean Corpuscular Hemoglobin Concent 33 32-36 g/dL Red Cell Distribution Width 14.7 H 10.0-14.5 % Platelet Count 385 130-400 10^3/uL Mean Platelet Volume 9.7 9.0-12.2 fL Immature Granulocyte % (Auto) 1 % Neutrophils (%) (Auto) 63 42-75 % Lymphocytes (%) (Auto) 30 12-44 % Monocytes (%) (Auto) 5 0-12 % Eosinophils (%) (Auto) 2 0-10 % Basophils (%) (Auto) 1 0-10 % Neutrophils # (Auto) 9.6 H 1.8-7.8 10^3/uL Lymphocytes # (Auto) 4.5 H 1.0-4.0 10^3/uL Monocytes # (Auto) 0.7 0.0-1.0 10^3/uL Eosinophils # (Auto) 0.2 0.0-0.3 10^3/uL Basophils # (Auto) 0.1 0.0-0.1 10^3/uL Immature Granulocyte # (Auto) 0.1 0.0-0.1 10^3/uL Neutrophils % (Manual) 51 % Lymphocytes % (Manual) 29 % Monocytes % (Manual) 2 % Eosinophils % (Manual) 5 % Myelocytes % 1 % Band Neutrophils 2 % Atypical Lymphocytes 3 % Reactive Lymphocytes 7 % Prothrombin Time 13.2 12.2-14.7 SEC INR Comment 1.0 0.8-1.4 Activated Partial Thromboplast Time 28 24-35 SEC Sodium Level 140 135-145 MMOL/L Potassium Level 3.4 L 3.6-5.0 MMOL/L Chloride Level 102 98-107 MMOL/L Carbon Dioxide Level 27 21-32 MMOL/L Anion Gap 11 5-14 MMOL/L Blood Urea Nitrogen 10 7-18 MG/DL Creatinine 0.98 0.60-1.30 MG/DL Estimat Glomerular Filtration Rate 73 BUN/Creatinine Ratio 10 Glucose Level 106 H 70-105 MG/DL Calcium Level 9.6 8.5-10.1 MG/DL Corrected Calcium 9.4 8.5-10.1 MG/DL Magnesium Level 1.9 1.6-2.4 MG/DL Total Bilirubin 0.4 0.1-1.0 MG/DL Aspartate Amino Transf (AST/SGOT) 22 5-34 U/L Alanine Aminotransferase (ALT/SGPT) 14 0-55 U/L Alkaline Phosphatase 156 H 40-136 U/L Troponin I < 0.30 < 0.30 <0.30 NG/ML Pro-B-Type Natriuretic Peptide 192.9 H <125.0 PG/ML Total Protein 7.7 6.4-8.2 GM/DL Albumin 4.3 3.2-4.5 GM/DL Lipase 27 8-78 U/L My Orders Orders - TONY GOFF MD Cbc With Automated Diff (12/08/22 04:14) Magnesium (12/08/22 04:14) Chest 1 View Ap/Pa Only (12/08/22 04:14) Ekg Tracing (12/08/22 04:14) Comprehensive Metabolic Panel (12/08/22 04:14) Protime With Inr (12/08/22 04:14) Partial Thromboplastin Time (12/08/22 04:14) O2 (12/08/22 04:14) Monitor-Rhythm Ecg Trace Only (12/08/22 04:14) Aspirin Chewable Tablet (Baby Aspirin Ch (12/08/22 04:15) Ed Iv/Invasive Line Start (12/08/22 04:14) Lipase (12/08/22 04:14) Troponin I Fs (12/08/22 04:14) Probnp Fs (12/08/22 04:14) Famotidine Tablet (Pepcid Tablet) (12/08/22 04:14) Antacid Suspension (Mylanta Suspension (12/08/22 04:15) Nitroglycerin Ointment (Nitrobid Ointme (12/08/22 04:15) Clopidogrel Tablet (Plavix Tablet) (12/08/22 04:30) Albuterol/Ipra Inhalation Soln (Duoneb I (12/08/22 04:30) Albuterol/Ipra Inhalation Soln (Duoneb I (12/08/22 04:21) Manual Differential (12/08/22 04:15) Ondansetron Injection (Zofran Injectio (12/08/22 05:00) Troponin I Fs (12/08/22 05:50) Medications Given in ED Current Medications Medications Dose Ordered Sig/Brissa Route Start Time Stop Time Status Last Admin Dose Admin Al Hydrox/Mg Hydrox/Simethicone 30 ml ONCE ONCE PO 12/08/22 04:15 12/08/22 04:16 DC 12/08/22 04:22 30 ML Albuterol/ Ipratropium 3 ml ONCE ONCE INH 12/08/22 04:30 12/08/22 04:31 DC 12/08/22 04:23 3 ML Aspirin 324 mg ONCE ONCE PO 12/08/22 04:15 12/08/22 04:16 DC 12/08/22 04:23 324 MG Clopidogrel Bisulfate 75 mg ONCE ONCE PO 12/08/22 04:30 12/08/22 04:31 DC 12/08/22 04:23 75 MG Nitroglycerin 1 inch ONCE ONCE TOP 12/08/22 04:15 12/08/22 04:16 DC 12/08/22 04:22 1 INCH Ondansetron HCl 4 mg ONCE ONCE IVP 12/08/22 05:00 12/08/22 05:01 DC 12/08/22 05:00 4 MG Vital Signs/I&O 12/08/22 04:12 Temp 37.4 Pulse 68 Resp 18 B/P (MAP) 131/82 (98) Pulse Ox 97 O2 Delivery Room Air Progress Progress Note : Progress Note 42-year-old female with above history coming in due to chest pain. ABCs were intact and vitals were stable on presentation. She was given aspirin and her daily Plavix on presentation as well as Nitropaste and a GI cocktail. Later on was given a DuoNeb given her COPD history with her symptoms being described as tightness. This did seem to help her subjectively. Physical exam reassuring with no acute abnormalities, specifically no clinical signs of a DVT. EKG ordered and interpreted by me showing no acute ischemic changes, specifically it appears almost identical to numerous prior EKGs. Chest x-ray ordered and interpreted by me showing no clinical change from prior, no pneumothorax. An IV was placed and basic labs were obtained were significant for a slightly elevated white blood cell count which is consistent with the patient's prior history and she does follow with hematology due to this, normal creatinine, and negative troponin x2. proBNP also ordered as a screen and was less than 200 and is essentially unremarkable. She is not tachycardic, not hypoxic, not short of breath, no clinical signs of a DVT, and overall would be low risk for PE. Having constant pain for several hours with 2 negative troponins makes ACS highly unlikely. 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 Most reassuringly, she is well-appearing, and this is a similar presentation from 2 days ago which she also had a negative work-up. Also similar to prior presentation about a month ago where she had a negative work-up. I counseled her in depth on smoking cessation since she is still using a pack and half a day I discussed that if she continues to smoke within her risk of heart attack and stroke are significantly increasing. I believe she is otherwise stable for discharge with outpatient follow-up. She was sent home with strict return precautions. Initial ECG Impression Date: Dec 08, 2022 Initial ECG Impression Time: 04:13 Initial ECG Rate: 64 Initial ECG Rhythm: Normal Sinus Comment Narrow QRS, normal axis, no significant ST elevation, T wave inversions in the precordial leads which is similar to multiple prior EKGs Diagnostic Imaging Diagonstic Imaging: Xray (chest) Departure Impression Primary Impression: Chest pain Qualified Codes: R07.82 - Intercostal pain Additional Impressions: COPD exacerbation Smoking Disposition: HOME, SELF-CARE Condition: Stable Departure-Patient Inst. Decision time for Depature: 06:40 Referrals: PITER TRACY MD FACP [facility] MAYKEL CUMMINS APRN (PCP) Primary Care Physician Patient Instructions: Chest Pain, Adult ED Add. Discharge Instructions: Your cardiac work-up once again today was reassuring and it at least does not appear like you are having an active heart attack today You certainly do have risk factors for things such as a heart attack or storke, and we do recommend stopping smoking as soon as possible. Your risk of future heart attack is very high with your current smoking unfortunately which there are no medications we could give you to prevent that risk other than stopping smoking. We recommend following up with your pricing intern as well given this has been multiple episodes in the past month. If you have any concerns that are life-threatening then of course please come back to the ER. Work/School Note: Family Work Note, Patient Received Medical Care In the Emergency Department On: Dec 08, 2022 Patient Will Be Able to Return to Work/School On: Dec 09, 2022 Work Release Form Date Seen in the Emergency Department: Dec 08, 2022 Return to Work: Dec 09, 2022 Restrictions: No Restrictions TONY GOFF MD Dec 08, 2022 04:29
[2022-12-08] MEDS ORDERED: RT-ALBUTEROL/IPRATROPIUM 3 ML (DUONEB) VIAL INH ONE (04:30)
[2022-12-08] MEDS ORDERED: CLOPIDOGREL 75 MG TABLET PO ONE (04:30)
[2022-12-08 04:44] LABS: BAND NEUTROPHILS 2 %; EOSINOPHILS % (MANUAL) 5 %; LYMPHOCYTES % (MANUAL) 29 %; MONOCYTES % (MANUAL) 2 %; MYELOCYTES % 1 %; NEUTROPHILS % (MANUAL) 51 %
[2022-12-08 04:45] LABS: ATYPICAL LYMPHOCYTES 3 %; REACTIVE LYMPHOCYTES 7 %
[2022-12-08 04:47] LABS: PROTHROMBIN TIME PATIENT 13.2 SEC (12.2-14.7)
[2022-12-08] MEDS ORDERED: ONDANSETRON 4 MG/2 ML (SDV) Z0FRAN IVP ONE (05:00)
[2022-12-08 05:04] LABS: ALANINE AMINOTRANSFERASE 14 U/L (0-55); ALKALINE PHOSPHATASE 156 U/L (40-136); BILIRUBIN,TOTAL 0.4 MG/DL (0.1-1.0); BUN/CREATININE RATIO 10; CALCIUM 9.6 MG/DL (8.5-10.1); CARBON DIOXIDE 27 MMOL/L (21-32); CHLORIDE 102 MMOL/L (98-107); CREATININE SERUM 0.98 MG/DL (0.60-1.30); GFR ESTIMATED 73; GLUCOSE 106 MG/DL (70-105); MAGNESIUM 1.9 MG/DL (1.6-2.4); POTASSIUM 3.4 MMOL/L (3.6-5.0); SODIUM 140 MMOL/L (135-145)
[2022-12-08 05:05] LABS: ALBUMIN 4.3 GM/DL (3.2-4.5); LIPASE 27 U/L (8-78); TOTAL PROTEIN 7.7 GM/DL (6.4-8.2)
--- NOTE | 2022-12-08 06:44 | Diagnostic Imaging Report ---
EXAMINATION: Chest 1 view HISTORY: Chest pain. Nausea. COMPARISON: 12/06/2022. FINDINGS: The lung volumes are normal. No focal consolidation is seen. No large pleural effusion or pneumothorax is seen. The cardiomediastinal silhouette is normal in size and contour. No acute osseous abnormality is seen. IMPRESSION: 1. No acute pleuroparenchymal process. Dictated by: Dictated on workstation # [id number]
[2022-12-08 06:45] VITALS: BP 120/78
[2022-12-08] MEDS ORDERED: HYDROcodone/ACETAMINOPHEN 5 MG/325 MG TABLET PO ONE (06:45)
== END 2022-12-08 06:45 | disposition home or self-care (01) ==
LOC: EDUNIT# 04:07 → ER FS 04:09
DX: J44.1 Chronic obstructive pulmonary disease with (acute) exacerbation (principal); R07.89 Other chest pain; E66.01 Morbid (severe) obesity due to excess calories; F17.210 Nicotine dependence, cigarettes, uncomplicated; Z68.42 Body mass index [BMI] 45.0-49.9, adult; Z79.02 Long term (current) use of antithrombotics/antiplatelets; Z71.6 Tobacco abuse counseling
CPT/HCPCS: 36415; 71045; 80053; 83690; 83735; 83880; 84484; 85007; 85027; 85610; 85730; 93005; 93041

== ENCOUNTER 2022-12-12 22:59 | Emergency (ER) | payer MEDICAID ==
[2022-12-12] MEDS ORDERED: CYCLOBENZAPRINE 10 MG TABLET PO STA (23:20)
--- NOTE | 2022-12-12 23:24 | ED Back Pain ---
General Chief Complaint: Back Problems Stated Complaint: NAUSEA,BACK PAIN Nursing Triage Note: Pt complaining of left lower back pain that started yesterday. Pt also states that her back hurts up higher in between her shoulder blades. Pt states she started feeling nauseated around 1930 tonight. Source of Information: Patient Exam Limitations: No Limitations History of Present Illness Date Seen by Provider: Dec 12, 2022 Time Seen by Provider: 23:03 Initial Comments 42-year-old female with PMH of chronic back pain coming in due to low back pain. The pain started yesterday, achy, worse with any type of twisting or movement. Took Tylenol, meloxicam, use lidocaine patch, and they seem to take the edge off. Denies any bowel or bladder issue, no weakness or numbness, dysuria, hematuria, or any other concerns. States she started feeling nauseous around 730 tonight as well. Allergies and Home Medications Allergies Coded Allergies: gabapentin (Verified Allergy, Unknown, 01/25/19) metoclopramide (Unverified Allergy, Unknown, "CAUSES PT TO LOSE CONTROL OF MUSCLES", 01/25/19) Patient Home Medication List Home Medication List Reviewed: Yes Acetaminophen (Tylenol Extra Strength) 500 Mg Tablet, 1,000 MG PO Q8H PRN for PAIN-MILD (1-4), (Reported) Entered as Reported by: KIELY JONES on 12/28/21 1045 Aspirin (Aspirin EC) 81 Mg Tablet.dr, 81 MG PO DAILY, (Reported) Entered as Reported by: DC CANSECO on 11/04/21 0835 Atenolol (Atenolol) 50 Mg Tablet, 50 MG PO BID, (Reported) Entered as Reported by: DC CANSECO on 11/04/21 0835 Atorvastatin Calcium (Atorvastatin Calcium) 10 Mg Tablet, 10 MG PO HS, (Reporte d) Entered as Reported by: DC CANSECO on 11/04/21 0835 Buspirone HCl (Buspirone HCl) 15 Mg Tablet, 15 MG PO TID, (Reported) Entered as Reported by: DC CANSECO on 11/04/21 0835 Cephalexin (Cephalexin) 500 Mg Tablet, 500 MG PO TID Prescribed by: FADY DOE MD on 03/30/222136 Cyclobenzaprine HCl (Cyclobenzaprine HCl) 10 Mg Tablet, 10 MG PO Q8H PRN for SPASMS Prescribed by: TONY GOFF on 11/18/22 012 Diphenhydramine HCl (Benadryl Allergy) 25 Mg Tablet, 50 MG PO BID, (Reported) Entered as Reported by: KEILY JONES on 12/28/21 104 Estradiol (Estradiol Tablet) 1 Mg Tablet, 1 MG PO DAILY, (Reported) Entered as Reported by: MADDY DANIELLE on 05/20/19 1327 Ethosuximide (Ethosuximide) 250 Mg Capsule, 250 MG PO HS, (Reported) Entered as Reported by: MADDY DANIELLE on 04/12/16 0942 Fluoxetine HCl (Fluoxetine HCl) 40 Mg Capsule, 80 MG PO DAILY, (Reported) Entered as Reported by: LILIBETH DOUGLAS on 01/26/19 0349 Hydrochlorothiazide (Hydrochlorothiazide) 12.5 Mg Tablet, 12.5 MG PO DAILY, (Reported) Entered as Reported by: DC CANSECO on 11/04/21 0835 Hydroxyzine HCl (Hydroxyzine HCl) 25 Mg Tablet, 25 MG PO TID PRN for ANXIETY, (Reported) Entered as Reported by: DC CANSECO on 11/04/21 0835 Ibuprofen (Ibuprofen) 600 Mg Tablet, 600 MG PO Q6H PRN for PAIN-MILD Prescribed by: TONY GOFF on 10/04/222201 Isosorbide Mononitrate (Isosorbide Mononitrate ER) 60 Mg Tab, 60 MG PO DAILY, (Reported) Entered as Reported by: KEILY JONES on 12/28/21 104 Lidocaine (Lidocaine 5% Patch) 5 % Adh..patch, 1 EACH TP Q12H PRN for Neuropathic pain Prescribed by: TONY GOFF on 10/04/222201 Lisinopril (Lisinopril) 20 Mg Tablet, 20 MG PO BID, (Reported) Entered as Reported by: MADDY DANIELLE on 05/20/19 1324 Nitroglycerin (Nitroglycerin) 0.4 Mg Tab.subl, 0.4 MG SL UD PRN for CHEST PAIN, (Reported) Entered as Reported by: KEILY JONES on 12/28/21 1042 Pantoprazole Sodium (Pantoprazole Sodium) 40 Mg Tablet.dr, 40 MG PO BID Prescribed by: RAHEEM LI JR, MD on 12/29/21 1221 Pregabalin (Pregabalin) 150 Mg Capsule, 150 MG PO TID, (Reported) Entered as Reported by: DC CANSECO on 11/04/21 0835 Promethazine HCl (Promethazine Suppository) 25 Mg Supp.rect, 25 MG RC Q6H PRN for NAUSEA/VOMITING-2ND LINE Prescribed by: TONY GOFF on 05/03/22 1028 Promethazine HCl (Promethazine Tablet) 25 Mg Tablet, 25 MG PO Q6H PRN for NAUSEA/VOMITING Prescribed by: TONY GOFF on 12/13/22 0015 Ranolazine (Ranexa) 500 Mg Tab.er.12h, 1,000 MG PO BID Prescribed by: RAHEEM LI JR, MD on 12/29/21 1221 Tizanidine HCl (Tizanidine HCl) 4 Mg Tablet, 4 MG PO TID PRN for MUSCLE SPASMS, (Reported) Entered as Reported by: KEILY JONES on 12/28/21 1042 Review of Systems Constitutional: No fever EENTM: no symptoms reported Respiratory: no symptoms reported Cardiovascular: no symptoms reported Gastrointestinal: see HPI Genitourinary: no symptoms reported Musculoskeletal: see HPI Skin: no symptoms reported Psychiatric/Neurological: No Symptoms Reported Past Kvqnxck-Elbhdl-Dxhrcp Hx Patient Social History Tobacco Use?: Yes Tobacco type used: Cigarettes Immunizations Up To Date Tetanus Booster (TDap): Unknown First/Initial COVID19 Vaccinat: unk Second COVID19 Vaccination Suhas: unk Third COVID19 Vaccination Date: unk Seasonal Allergies Seasonal Allergies: Yes Past Medical History Surgery/Hospitalization HX: HYST, LAP DANIA, x 3, TUBAL, NARCOLEPSY, ANXIETY, COPD, ASTHMA, HTN, MORBID OBESITY, coronary artery disease, RECURRENT CHEST PAIN Surgeries: Yes (dental extractions, dxls, bmt, 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, LEFT EAR) Section, Ear Surgery, Gallbladder, Hysterectomy, Orthopedic, 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 Respiratory: Yes Asthma, COPD Currently Using CPAP: No Currently Using BIPAP: No Cardiac: Yes Coronary Artery Disease, Heart Murmur, Hypertension, Irregular Heartbeat Neurological: Yes Headaches /Migraines, Seizure Disorder 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 Disorders: Yes Female 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 Disorders: 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, 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 Sexually Transmitted Disease: No Genitourinary: Yes Kidney Stones Gastrointestinal: Yes Colitis, Gastroesophageal Reflux, Diverticulosis, Hemorrhoids, Polyps, Hiatal Hernia, Ulcer Musculoskeletal: Yes (spina bifida) Arthritis, Scoliosis, Chronic Back Pain Endocrine: No HEENT: Yes Chronic Ear Infection Hearing Impairment: Denies, Hard of Hearing Cancer: No Psychosocial: Yes Anxiety, Depression Integumentary: No Blood Disorders: No Family Medical History No Pertinent Family Hx Physical Exam Vital Signs Vital Signs - First Documented 12/12/22 23:03 Temp 36.5 Pulse 78 Resp 16 B/P (MAP) 153/65 (94) Pulse Ox 96 O2 Delivery Room Air Capillary Refill : Height, Weight, BMI Height: 5'0" Weight: 235lbs. 0oz. 106.311145dw; 47.00 BMI Method:Stated General Appearance: No Apparent Distress, WD/WN HEENT: PERRL/EOMI, Normal ENT Inspection, Pharynx Normal Neck: Full Range of Motion, Normal Inspection, Non Tender, Supple Cardiovascular: Regular Rate, Rhythm, No Edema, Normal Peripheral Pulses Respiratory: Chest Non Tender, Lungs Clear, Normal Breath Sounds, No Accessory Muscle Use, No Respiratory Distress Gastrointestinal: Normal Bowel Sounds, Non Tender, Soft; No Guarding Back: Normal Inspection, No CVA Tenderness, No Vertebral Tenderness, Other (Left lower paravertebral tenderness) Extremity: Normal Capillary Refill, Normal Inspection, Normal Range of Motion, Non Tender, No Calf Tenderness, No Pedal Edema, Other (Positive straight leg test on the left) Neurologic/Psychiatric: Alert, No Motor/Sensory Deficits, Normal Mood/Affect Skin: Normal Color, Warm/Dry Progress/Results/Core Measures Results/Orders Lab Results Laboratory Tests Test 12/12/22 23:33 Range/Units Urine Color YELLOW Urine Clarity SL CLOUDY Urine pH 6.0 5-9 Urine Specific [place] >=1.030 1.016-1.022 Urine Protein NEGATIVE NEGATIVE Urine Glucose (UA) NEGATIVE NEGATIVE Urine Ketones NEGATIVE NEGATIVE Urine Nitrite NEGATIVE NEGATIVE Urine Bilirubin NEGATIVE NEGATIVE Urine Urobilinogen 0.2 < = 1.0 MG/DL Urine Leukocyte Esterase NEGATIVE NEGATIVE Urine RBC (Auto) NEGATIVE NEGATIVE Urine RBC 0-2 /HPF Urine WBC RARE /HPF Urine Squamous Epithelial Cells 10-25 H /HPF Urine Renal Epithelial Cells RARE /HPF Urine Crystals NONE /LPF Urine Bacteria MODERATE H /HPF Urine Casts PRESENT /LPF Urine Hyaline Casts 0-2 H /LPF Urine Mucus MODERATE H /LPF Urine Yeast FEW H /HPF Urine Culture Indicated YES Urine Opiates Screen NEGATIVE NEGATIVE Urine Oxycodone Screen NEGATIVE NEGATIVE Urine Methadone Screen NEGATIVE NEGATIVE Urine Propoxyphene Screen NEGATIVE NEGATIVE Urine Barbiturates Screen NEGATIVE NEGATIVE Ur Tricyclic Antidepressants Screen NEGATIVE NEGATIVE Urine Phencyclidine Screen NEGATIVE NEGATIVE Urine Amphetamines Screen NEGATIVE NEGATIVE Urine Methamphetamines Screen NEGATIVE NEGATIVE Urine Benzodiazepines Screen POSITIVE H NEGATIVE Urine Cocaine Screen NEGATIVE NEGATIVE Urine Cannabinoids Screen NEGATIVE NEGATIVE My Orders Orders - TONY GOFF MD Promethazine Tablet (Phenergan Tablet) (12/12/22 23:30) Cyclobenzaprine Tablet (Cyclobenzaprine (12/12/22 23:20) Drug Screen Stat (Urine) (12/12/22 23:28) Ua Culture If Indicated (12/12/22 23:28) Ketorolac Injection (Toradol Injection) (12/13/22 00:00) Urine Culture (12/12/22 23:33) Medications Given in ED Current Medications Medications Dose Ordered Sig/Brissa Route Start Time Stop Time Status Last Admin Dose Admin Ketorolac Tromethamine 15 mg ONCE ONCE IM 12/13/22 00:00 12/13/22 00:01 DC 12/13/22 00:02 15 MG Promethazine HCl 25 mg ONCE ONCE PO 12/12/22 23:30 12/12/22 23:31 DC 12/12/22 23:26 25 MG Vital Signs/I&O 12/12/22 12/13/22 23:03 00:18 Temp 36.5 36.5 Pulse 78 78 Resp 16 16 B/P (MAP) 153/65 (94) 153/65 Pulse Ox 96 96 O2 Delivery Room Air Room Air Blood Pressure Mean: 94 Progress Progress Note : Progress Note 42-year-old coming in due to low back pain. ABCs were intact and vitals were stable on presentation. Physical exam with recreation of pain with any type of bending or twisting of her lower back. Clinically seems to be musculoskeletal in nature. She did have a positive straight leg test as well, otherwise normal neurovascular exam. I did a [id number] ultrasound and she is not showing any signs of hydronephrosis bilaterally, clinically would be less likely to be ureterolithiasis. Additionally, I reviewed CT imaging from this year, and she had a normal- appearing aorta with no aneurysm, and no kidney stones at that time. She had an x-ray of her lumbar spine earlier this month showing no fracture or dislocation, but she does have chronic degenerative changes. Screening urine was done here showing numerous COVID epithelial cells which is contaminated. No large infection that would be concerning for pyelonephritis as a cause of back pain. Also no blood making ureterolithiasis less likely. I began discussing with the patient at length regarding her chronic back pain. I discussed that she needs to see a spine surgeon. She states she seen them in the past and had injections in the past, they worked for some time. I also recommended seeing a pain specialist. She states she has also seen a painter chassis in the past. When I recommended physical therapy as an adjunct to her treatment, she states that that does not work for her. Essentially, the patient was not wanting to go forward with any recommendations that were given to her. I believe she is stable for discharge with outpatient follow-up. She was sent home with strict return precautions. Departure Impression Primary Impression: Low back pain Qualified Codes: M54.50 - Low back pain, unspecified Disposition: 01 HOME, SELF-CARE Condition: Stable Departure-Patient Inst. Decision time for Depature: 00:20 Referrals: MAYKEL CUMMINS APRN (PCP/Family) Primary Care Physician Patient Instructions: Low back pain in adults Add. Discharge Instructions: Please follow back up with your regular doctor and get a referral to a client engagement specialist given this is a worsening issue of your normal back pain. They may be able to do injections in the area to help with it. Continue to take the Tylenol, meloxicam, and the muscle relaxer that you have at home. A different nausea medicine will be sent to your pharmacy as well to try to help. Scripts Promethazine HCl (Promethazine Tablet) 25 Mg Tablet 25 MG PO Q6H PRN for NAUSEA/VOMITING for 5 Days, #20 TAB Prov: TONY GOFF MD 12/13/22 Work/School Note: Work Release Form Date Seen in the Emergency Department: Dec 13, 2022 Return to Work: Dec 14, 2022 Restrictions: No Restrictions TONY GOFF MD Dec 12, 2022 23:24
[2022-12-12] MEDS ORDERED: PROMETHAZINE 25 MG (PHENERGAN) TAB PO ONE (23:30)
[2022-12-12 23:42] LABS: BILIRUBIN,URINE NEGATIVE (NEGATIVE); CLARITY,URINE SL CLOUDY; COLOR,URINE YELLOW; GLUCOSE, URINE (UA) NEGATIVE (NEGATIVE); KETONES,URINE NEGATIVE (NEGATIVE); LEUKOCYTE ESTERASE ,URINE NEGATIVE (NEGATIVE); NITRITE,URINE NEGATIVE (NEGATIVE); PROTEIN,URINE NEGATIVE (NEGATIVE)
[2022-12-12 23:57] LABS: RBC,URINE 0-2 /HPF
[2022-12-12 23:58] LABS: BACTERIA,URINE MODERATE /HPF; HYALINE CASTS, URINE 0-2 /LPF; RENAL EPITHELIAL CELLS,URINE RARE /HPF; WBC,URINE RARE /HPF
[2022-12-12 23:59] LABS: YEAST,URINE FEW /HPF
[2022-12-13] MEDS ORDERED: KETOROLAC 15 MG/ML VIAL IM ONE
[2022-12-13 00:05] LABS: AMPHETAMINE SCREEN, URINE NEGATIVE (NEGATIVE); BARBITURATE SCREEN URINE NEGATIVE (NEGATIVE); BENZODIAZEPINES SCREEN URINE POSITIVE (NEGATIVE); CANNABINOID SCREEN, URINE NEGATIVE (NEGATIVE); COCAINE SCREEN URINE NEGATIVE (NEGATIVE); METHADONE STAT NEGATIVE (NEGATIVE); OPIATE SCREEN URINE NEGATIVE (NEGATIVE); OXYCODONE STAT NEGATIVE (NEGATIVE); PROPOXYPHENE STAT NEGATIVE (NEGATIVE); TRICYCLIC ANTIDEPRESSANTS SCRE NEGATIVE (NEGATIVE)
[2022-12-13] MEDS ORDERED: PROM25TA14 PO (00:15)
[2022-12-13 00:18] VITALS: BP 153/65
== END 2022-12-13 00:20 | disposition home or self-care (01) ==
LOC: EDUNIT# 22:59 → ER FS 23:00
DX: M54.50 Low back pain, unspecified (principal); M47.816 Spondylosis without myelopathy or radiculopathy, lumbar region; F17.210 Nicotine dependence, cigarettes, uncomplicated; E66.01 Morbid (severe) obesity due to excess calories; Z68.42 Body mass index [BMI] 45.0-49.9, adult; Z87.768 Personal history of other specified (corrected) congenital malformations of integument, limbs and musculoskeletal system; Z28.310 Unvaccinated for COVID-19; X50.1XXA Overexertion from prolonged static or awkward postures, initial encounter
CPT/HCPCS: 80306; 81000; 87088; 99283

== ENCOUNTER 2022-12-29 22:57 | Emergency (ER) | payer MEDICAID ==
[2022-12-29] MEDS ORDERED: KETOROLAC INJ 15 MG/ML VIAL IM ONE (23:15)
[2022-12-29] MEDS ORDERED: dexAMETHasone INJ 4 MG/ML SDV IM ONE (23:15)
[2022-12-29] MEDS ORDERED: ORPHENADRINE 60 MG/2 ML (NORFLEX) AMP (ED ONLY) IM ONE (23:15)
[2022-12-29] MEDS ORDERED: LIDO700A45 TP (23:21)
--- NOTE | 2022-12-29 23:22 | ED Back Pain ---
General Chief Complaint: Back Problems Stated Complaint: LOWER BACK/L LEG PAIN Source of Information: Patient Exam Limitations: No Limitations History of Present Illness Date Seen by Provider: Dec 29, 2022 Time Seen by Provider: 23:00 Initial Comments 42-year-old female with past medical history most notable for chronic back pain coming in due to low back pain. It has been going on for quite some time, worsened tonight with no new injury. She took Tylenol shortly prior to arrival. She is working on having an MRI scheduled and then she is going to be referred to a new spine physician in [place], but is pending all this work-up. She is denying any fever, dysuria, hematuria, trauma, new weakness or numbness, bowel or bladder issue. Allergies and Home Medications Allergies Coded Allergies: gabapentin (Verified Allergy, Unknown, 01/25/19) metoclopramide (Unverified Allergy, Unknown, "CAUSES PT TO LOSE CONTROL OF MUSCLES", 01/25/19) Patient Home Medication List Home Medication List Reviewed: Yes Acetaminophen (Tylenol Extra Strength) 500 Mg Tablet, 1,000 MG PO Q8H PRN for PAIN-MILD (1-4), (Reported) Entered as Reported by: KEILY JONES on 12/28/21 1045 Aspirin (Aspirin EC) 81 Mg Tablet.dr, 81 MG PO DAILY, (Reported) Entered as Reported by: DC CANSECO on 11/04/21 0835 Atenolol (Atenolol) 50 Mg Tablet, 50 MG PO BID, (Reported) Entered as Reported by: DC CANSECO on 11/04/21 0835 Atorvastatin Calcium (Atorvastatin Calcium) 10 Mg Tablet, 10 MG PO HS, (Reported) Entered as Reported by: DC CANSECO on 11/04/21 0835 Buspirone HCl (Buspirone HCl) 15 Mg Tablet, 15 MG PO TID, (Reported) Entered as Reported by: DC CANSECO on 11/04/21 0835 Cephalexin (Cephalexin) 500 Mg Tablet, 500 MG PO TID Prescribed by: FADY DOE MD on 03/30/22 2137 Cyclobenzaprine HCl (Cyclobenzaprine HCl) 10 Mg Tablet, 10 MG PO Q8H PRN for SPASMS Prescribed by: TONY GOFF on 11/18/22 0121 Diphenhydramine HCl (Benadryl Allergy) 25 Mg Tablet, 50 MG PO BID, (Reported) Entered as Reported by: KEILY JONES on 12/28/21 1045 Estradiol (Estradiol Tablet) 1 Mg Tablet, 1 MG PO DAILY, (Reported) Entered as Reported by: MADDY DANIELLE on 05/20/19 1327 Ethosuximide (Ethosuximide) 250 Mg Capsule, 250 MG PO HS, (Reported) Entered as Reported by: MADDY DANIELLE on 04/12/16 0942 Fluoxetine HCl (Fluoxetine HCl) 40 Mg Capsule, 80 MG PO DAILY, (Reported) Entered as Reported by: LILIBETH DOUGLAS on 01/26/19 0349 Hydrochlorothiazide (Hydrochlorothiazide) 12.5 Mg Tablet, 12.5 MG PO DAILY, (Reported) Entered as Reported by: DC CANSECO on 11/04/21 0835 Hydroxyzine HCl (Hydroxyzine HCl) 25 Mg Tablet, 25 MG PO TID PRN for ANXIETY, (Reported) Entered as Reported by: DC CANSECO on 11/04/21 0835 Ibuprofen (Ibuprofen) 600 Mg Tablet, 600 MG PO Q6H PRN for PAIN-MILD Prescribed by: TONY GOFF on 10/04/222201 Isosorbide Mononitrate (Isosorbide Mononitrate ER) 60 Mg Tab, 60 MG PO DAILY, (Reported) Entered as Reported by: KEILY JONES on 12/28/21 104 Lidocaine (Lidocaine 5% Patch) 5 % Adh..patch, 1 EACH TP Q12H PRN for Neuropathic pain Prescribed by: TONY GOFF on 10/04/222201 Lisinopril (Lisinopril) 20 Mg Tablet, 20 MG PO BID, (Reported) Entered as Reported by: MADDY DANIELLE on 05/20/19 1324 Nitroglycerin (Nitroglycerin) 0.4 Mg Tab.subl, 0.4 MG SL UD PRN for CHEST PAIN, (Reported) Entered as Reported by: KEILY JONES on 12/28/21 1042 Pantoprazole Sodium (Pantoprazole Sodium) 40 Mg Tablet.dr, 40 MG PO BID Prescribed by: RAHEEM LI JR, MD on 12/29/21 1221 Pregabalin (Pregabalin) 150 Mg Capsule, 150 MG PO TID, (Reported) Entered as Reported by: DC CANSECO on 11/04/21 0835 Promethazine HCl (Promethazine Suppository) 25 Mg Supp.rect, 25 MG RC Q6H PRN for NAUSEA/VOMITING-2ND LINE Prescribed by: TONY GOFF on 05/03/22 1028 Promethazine HCl (Promethazine Tablet) 25 Mg Tablet, 25 MG PO Q6H PRN for N AUSEA/VOMITING Prescribed by: TONY GOFF on 12/13/22 0015 Ranolazine (Ranexa) 500 Mg Tab.er.12h, 1,000 MG PO BID Prescribed by: RAHEEM LI JR, MD on 12/29/21 1221 Tizanidine HCl (Tizanidine HCl) 4 Mg Tablet, 4 MG PO TID PRN for MUSCLE SPASMS, (Reported) Entered as Reported by: KEILY JONES on 12/28/21 1042 Review of Systems Constitutional: No fever EENTM: no symptoms reported Respiratory: no symptoms reported Cardiovascular: no symptoms reported Gastrointestinal: no symptoms reported Genitourinary: no symptoms reported Musculoskeletal: see HPI Skin: no symptoms reported Psychiatric/Neurological: No Symptoms Reported Past Pbnulxw-Evdsep-Znsblp Hx Patient Social History Tobacco Use?: Yes Tobacco type used: Cigarettes Immunizations Up To Date Tetanus Booster (TDap): Unknown First/Initial COVID19 Vaccinat: unk Second COVID19 Vaccination Suhas: unk Third COVID19 Vaccination Date: unk Seasonal Allergies Seasonal Allergies: Yes Past Medical History Surgery/Hospitalization HX: HYST, [facility] DANIA, x 3, TUBAL, NARCOLEPSY, ANXIETY, COPD, ASTHMA, HTN, MORBID OBESITY, coronary artery disease, RECURRENT CHEST PAIN, chronic back pain Surgeries: Yes (dental extractions, dxls, bmt, 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, LEFT EAR) Section, Ear Surgery, Gallbladder, Hysterectomy, Orthopedic, 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 Respiratory: Yes Asthma, COPD Currently Using CPAP: No Currently Using BIPAP: No Cardiac: Yes Coronary Artery Disease, Heart Murmur, Hypertension, Irregular Heartbeat Neurological: Yes Headaches /Migraines, Seizure Disorder 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 Disorders: Yes Female 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 Disorders: 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 0oz. 106.165168mn; 47.00 BMI Method:Stated General Appearance: No Apparent Distress, WD/WN HEENT: PERRL/EOMI, Normal ENT Inspection, Pharynx Normal Neck: Full Range of Motion, Normal Inspection, Non Tender, Supple Cardiovascular: Regular Rate, Rhythm, No Edema, Normal Peripheral Pulses Respiratory: Chest Non Tender, Lungs Clear, Normal Breath Sounds, No Accessory Muscle Use, No Respiratory Distress Gastrointestinal: Normal Bowel Sounds, Non Tender, Soft; No Distended, No Guarding Back: Normal Inspection, No CVA Tenderness, No Vertebral Tenderness, Other (Right-sided paravertebral tenderness, positive straight leg test on the left) Extremity: Normal Capillary Refill, Normal Inspection, Normal Range of Motion, Non Tender, No Calf Tenderness, No Pedal Edema Neurologic/Psychiatric: Alert, No Motor/Sensory Deficits, Normal Mood/Affect, Other (Normal gait, 5 out of 5 strength with foot plantar and dorsi flexion, 5 out of 5 strength with knee extension and flexion, 5 out of 5 strength with hip flexion) Skin: Normal Color, Warm/Dry Progress/Results/Core Measures Progress Progress Note : Progress Note 42-year-old female coming in due to an acute exacerbation of chronic back pain. ABCs were intact and vitals were stable on presentation. I am very familiar with this patient, and she has no red flags today that are concerning. She has no symptoms that would be concerning for a different etiology other than musculoskeletal. She has appropriate follow-up as an outpatient that she is working on. We will give her IM injections here and I will send a prescription for lidocaine patches which she ran out of. I believe she is stable for discharge with outpatient follow-up. She was sent home with strict return precautions. Departure Impression Primary Impression: Acute exacerbation of chronic low back pain Disposition: HOME, SELF-CARE Condition: Stable Departure-Patient Inst. Decision time for Depature: 23:30 Referrals: MAYKEL CUMMINS APRN (PCP/Family) Primary Care Physician Patient Instructions: Low back pain in adults Add. Discharge Instructions: We still have the same recommendations which is to continue follow-up with your regular doctor, continue pursuing getting the MRI and following up with the back doctor, a new prescription for the lidocaine patches was refilled to your pharmacy. Continue to take the Tylenol and muscle relaxers that you have at home. We also recommend normal things such as a heating pad and gentle stretching. We still recommend physical therapy and things such as massage. Unfortunately is likely impossible to take this pain away, but doing all of these different things combined likely will help significantly. Scripts Lidocaine (Lidocaine 5% Patch) 5 % Adh..patch 1 EACH TP Q12H PRN for Neuropathic pain MDD 2 for 14 Days, #28 PATCH 2 patches max for 12 hours, then 12 hours patch-free period. Prov: TONY GOFF MD 12/29/22 Work/School Note: Work Release Form Date Seen in the Emergency Department: Dec 29, 2022 Return to Work: Dec 31, 2022 Restrictions: No Restrictions TONY GOFF MD Dec 29, 2022 23:21
[2022-12-29 23:30] VITALS: BP 132/80
[2022-12-30] MEDS ORDERED: META800T PO (03:06)
== END 2022-12-29 23:30 | disposition home or self-care (01) ==
LOC: EDUNIT# 22:57 → ER FS 22:58
DX: M54.50 Low back pain, unspecified (principal); G89.29 Other chronic pain; F17.210 Nicotine dependence, cigarettes, uncomplicated; E66.01 Morbid (severe) obesity due to excess calories; Z68.42 Body mass index [BMI] 45.0-49.9, adult
CPT/HCPCS: 99284

== ENCOUNTER 2022-12-31 00:56 | Emergency (ER) | payer MEDICAID ==
[~2022-12-31] VITALS: Ht 152.4 cm; Wt 120.3 kg
[~2022-12-31 00:56] MED LIST changes: +META800T PO
[2022-12-31 03:07] LABS: ALANINE AMINOTRANSFERASE 10 U/L (0-55); ALBUMIN 4.1 GM/DL (3.2-4.5); ALKALINE PHOSPHATASE 122 U/L (40-136); BILIRUBIN,TOTAL 0.2 MG/DL (0.1-1.0); BUN/CREATININE RATIO 15; CALCIUM 9.1 MG/DL (8.5-10.1); CARBON DIOXIDE 26 MMOL/L (21-32); CHLORIDE 101 MMOL/L (98-107); CREATININE SERUM 1.37 MG/DL (0.60-1.30); GFR ESTIMATED 49; GLUCOSE 154 MG/DL (70-105); POTASSIUM 2.8 MMOL/L (3.6-5.0); SODIUM 141 MMOL/L (135-145)
[2022-12-31 03:08] LABS: BASOPHILS % (AUTO) 0 % (0-10); EOSINOPHILS % (AUTO) 0 % (0-10); HEMATOCRIT 34 % (35-52); HEMOGLOBIN 11.5 g/dL (11.5-16.0); LYMPHOCYTES # (AUTO) 3.6 X 10^3 (1.0-4.0); LYMPHOCYTES % (AUTO) 18 % (12-44); MEAN CORPUSCULAR HEMOGLOBIN 29 pg (25-34); MEAN CORPUSCULAR HGB CONC 34 g/dL (32-36); MEAN CORPUSCULAR VOLUME 87 fL (80-99); MONOCYTES # (AUTO) 0.9 X 10^3 (0.0-1.0); MONOCYTES % (AUTO) 5 % (0-12); NEUTROPHILS # (AUTO) 15.6 X 10^3 (1.8-7.8); NEUTROPHILS % (AUTO) 77 % (42-75); PLATELET COUNT 381 10^3/uL (130-400); WHITE BLOOD COUNT 20.3 10^3/uL (4.3-11.0)
[2022-12-31 03:09] LABS: LYMPHOCYTES % (MANUAL) 15 %; MONOCYTES % (MANUAL) 5 %; NEUTROPHILS % (MANUAL) 80 %
[2022-12-31 03:11] LABS: BACTERIA,URINE MODERATE /HPF; BILIRUBIN,URINE NEGATIVE (NEGATIVE); CLARITY,URINE CLEAR; COLOR,URINE YELLOW; GLUCOSE, URINE (UA) NEGATIVE (NEGATIVE); KETONES,URINE NEGATIVE (NEGATIVE); LEUKOCYTE ESTERASE ,URINE NEGATIVE (NEGATIVE); NITRITE,URINE NEGATIVE (NEGATIVE); PROTEIN,URINE NEGATIVE (NEGATIVE); SQUAMOUS EPITHELIAL CELL,UR 25-50 /HPF
--- NOTE | 2022-12-31 03:17 | ED Chest Pain ---
General Chief Complaint: Chest Pain Stated Complaint: CHEST PAIN Nursing Triage Note: Patient states that she began having chest pressure at approximately midnight. Patient reports that she took 3 Nitro tabs, 5 minutes apart with no relief. Patient has a history of angina that she sees Dr. Gary for. Source: patient Exam Limitations: no limitations History of Present Illness Date Seen by Provider: Dec 31, 2022 Time Seen by Provider: 00:58 Initial Comments 42-year-old female patient with history of hypertension, hyperlipidemia, morbid obesity, COPD and currently a smoker, anxiety and depression, CAD, frequent ER visits and drug-seeking behavior complaining of substernal squeezing chest pain since 28. Patient stated she woke up to go to the bathroom and had 5/10 chest pain with radiation to her back and right shoulder and associated with shortness of breath, nausea, dizziness, palpitation. Patient stated she took nitro x3 with partial improvement of the pain but the pain increased later on to 8/10. Patient also stated she took aspirin prior to arrival to ER. Patient denies fever, cough, focal neurodeficit, history of [place]. Patient had cardiac catheterization 1 year ago and was told she has some blockage in her heart without stent placement. Allergies and Home Medications Allergies Coded Allergies: gabapentin (Verified Allergy, Unknown, 01/25/19) metoclopramide (Unverified Allergy, Unknown, "CAUSES PT TO LOSE CONTROL OF MUSCLES", 01/25/19) Patient Home Medication List Home Medication List Reviewed: Yes Acetaminophen (Tylenol Extra Strength) 500 Mg Tablet, 1,000 MG PO Q8H PRN for PAIN-MILD (1-4), (Reported) Entered as Reported by: KEILY JONES on 12/28/21 1045 Aspirin (Aspirin EC) 81 Mg Tablet., 81 MG PO DAILY, (Reported) Entered as Reported by: DC CANSECO on 11/04/21 0835 Atenolol (Atenolol) 50 Mg Tablet, 50 MG PO BID, (Reported) Entered as Reported by: DC CANSECO on 11/04/21 0835 Atorvastatin Calcium (Atorvastatin Calcium) 10 Mg Tablet, 10 MG PO HS, (Report ed) Entered as Reported by: DC CANSECO on 11/04/21 0835 Buspirone HCl (Buspirone HCl) 15 Mg Tablet, 15 MG PO TID, (Reported) Entered as Reported by: DC CANSECO on 11/04/21 0835 Cephalexin (Cephalexin) 500 Mg Tablet, 500 MG PO TID Prescribed by: FADY DOE MD on 03/30/22 2137 Cyclobenzaprine HCl (Cyclobenzaprine HCl) 10 Mg Tablet, 10 MG PO Q8H PRN for SPASMS Prescribed by: TONY GOFF on 11/18/22 012 Diphenhydramine HCl (Benadryl Allergy) 25 Mg Tablet, 50 MG PO BID, (Reported) Entered as Reported by: KEILY JONES on 12/28/21 104 Estradiol (Estradiol Tablet) 1 Mg Tablet, 1 MG PO DAILY, (Reported) Entered as Reported by: MADDY DANIELLE on 05/20/19 1327 Ethosuximide (Ethosuximide) 250 Mg Capsule, 250 MG PO HS, (Reported) Entered as Reported by: MADDY DANIELLE on 04/12/16 0942 Fluoxetine HCl (Fluoxetine HCl) 40 Mg Capsule, 80 MG PO DAILY, (Reported) Entered as Reported by: LILIBETH DOUGLAS on 01/26/19 0349 Hydrochlorothiazide (Hydrochlorothiazide) 12.5 Mg Tablet, 12.5 MG PO DAILY, (Reported) Entered as Reported by: DC CANSECO on 11/04/21 0835 Hydroxyzine HCl (Hydroxyzine HCl) 25 Mg Tablet, 25 MG PO TID PRN for ANXIETY, (Reported) Entered as Reported by: DC CANSECO on 11/04/21 0835 Ibuprofen (Ibuprofen) 600 Mg Tablet, 600 MG PO Q6H PRN for PAIN-MILD Prescribed by: TONY GOFF on 10/04/22 220 Isosorbide Mononitrate (Isosorbide Mononitrate ER) 60 Mg Tab, 60 MG PO DAILY, (Reported) Entered as Reported by: KEILY JONES on 12/28/21 104 Lidocaine (Lidocaine 5% Patch) 5 % Adh..patch, 1 EACH TP Q12H PRN for Neuropathic pain Prescribed by: TONY GOFF on 10/04/222201 Lidocaine (Lidocaine 5% Patch) 5 % Adh..patch, 1 EACH TP Q12H PRN for Neuropathic pain Prescribed by: TONY GOFF on 12/29/22 2321 Lisinopril (Lisinopril) 20 Mg Tablet, 20 MG PO BID, (Reported) Entered as Reported by: MADDY DANIELLE on 05/20/19 1324 Metaxalone (Metaxalone) 800 Mg Tablet, 800 MG PO BID, (Reported) Entered as Reported by: CARMELO CLAUDIO on 12/30/22 0306 Nitroglycerin (Nitroglycerin) 0.4 Mg Tab.subl, 0.4 MG SL UD PRN for CHEST PAIN, (Reported) Entered as Reported by: KEILY JONES on 12/28/21 1042 Pantoprazole Sodium (Pantoprazole Sodium) 40 Mg Tablet.dr, 40 MG PO BID Prescribed by: RAHEEM LI JR, MD on 12/29/21 1221 Pregabalin (Pregabalin) 150 Mg Capsule, 150 MG PO TID, (Reported) Entered as Reported by: DC CANSECO on 11/04/21 0835 Promethazine HCl (Promethazine Suppository) 25 Mg Supp.rect, 25 MG RC Q6H PRN for NAUSEA/VOMITING-2ND LINE Prescribed by: TONY GOFF on 05/03/22 1028 Promethazine HCl (Promethazine Tablet) 25 Mg Tablet, 25 MG PO Q6H PRN for NAUSEA/VOMITING Prescribed by: TONY GOFF on 12/13/22 0015 Ranolazine (Ranexa) 500 Mg Tab.er.12h, 1,000 MG PO BID Prescribed by: RAHEEM LI JR, MD on 12/29/21 1221 Tizanidine HCl (Tizanidine HCl) 4 Mg Tablet, 4 MG PO TID PRN for MUSCLE SPASMS, (Reported) Entered as Reported by: KEILY JONES on 12/28/21 1042 Review of Systems Review of Systems Constitutional: see HPI EENTM: No Symptoms Reported Respiratory: See HPI Cardiovascular: See HPI Gastrointestinal: See HPI Genitourinary: No Symptoms Reported Musculoskeletal: see HPI Skin: no symptoms reported Psychiatric/Neurological: See HPI Endocrine: No Symptoms Reported All Other Systems Reviewed Negative Unless Noted: Yes Past Bgqtjyu-Dwclzv-Dmdyuv Hx Patient Social History Tobacco Use?: Yes Tobacco type used: Cigarettes Smoking Status: Heavy Tobacco Smoker Substance use?: No Alcohol Use?: No Pt feels they are or have been: No Immunizations Up To Date Tetanus Booster (TDap): Unknown First/Initial COVID19 Vaccinat: unk Second COVID19 Vaccination Suhas: unk Third COVID19 Vaccination Date: unk Seasonal Allergies Seasonal Allergies: Yes Past Medical History Surgery/Hospitalization HX: Angina Surgeries: Yes (dental extractions, dxls, bmt, 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, LEFT EAR) Section, Ear Surgery, Gallbladder, Hysterectomy, Orthopedic, 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 Respiratory: Yes Asthma, COPD Currently Using CPAP: No Currently Using BIPAP: No Cardiac: Yes Coronary Artery Disease, Heart Murmur, Hypertension, Irregular Heartbeat Neurological: Yes Headaches /Migraines, Seizure Disorder 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 Disorders: Yes Female 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 Disorders: 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 [employer] History: Hysterectomy, 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 Sexually Transmitted Disease: No Genitourinary: Yes Kidney Stones Gastrointestinal: Yes Colitis, Gastroesophageal Reflux, Diverticulosis, Hemorrhoids, Polyps, Hiatal Hernia, Ulcer Musculoskeletal: Yes (spina bifida) Arthritis, Scoliosis, Chronic Back Pain Endocrine: No HEENT: Yes Chronic Ear Infection Hearing Impairment: Denies, Hard of Hearing Cancer: No Psychosocial: Yes Anxiety, Depression Integumentary: No Blood Disorders: No Family Medical History No Pertinent Family Hx Physical Exam Vital Signs Capillary Refill : Less Than 3 Seconds Height, Weight, BMI Height: 5'0" Weight: 235lbs. 0oz. 106.605621kb; 51.00 BMI Method:Stated General Appearance: WD/WN, Obese (Morbidly obese) HEENT: PERRL/EOMI Neck: Full Range of Motion, Normal Inspection Respiratory: Lungs Clear, Normal Breath Sounds, Other (Reproducible chest pain) Cardiovascular: Regular Rate, Rhythm Gastrointestinal: Normal Bowel Sounds, Soft Extremity: Normal Capillary Refill, Normal Inspection Neurologic/Psychiatric: Alert, Oriented x3 Skin: Normal Color, Warm/Dry Lymphatic: No Adenopathy Focused Exam Lactate Level 12/31/22 01:10: Lactic Acid Level 1.43 Lactic Acid Level Laboratory Tests Test 12/31/22 01:10 Lactic Acid Level 1.43 MMOL/L (0.50-2.00) Progress/Results/Core Measures Results/Orders Lab Results Laboratory Tests Test 12/31/22 01:10 12/31/22 02:58 Range/Units White Blood Count 20.3 H 4.3-11.0 10^3/uL Red Blood Count 3.91 3.80-5.11 10^6/uL Hemoglobin 11.5 11.5-16.0 g/dL Hematocrit 34 L 35-52 % Mean Corpuscular Volume 87 80-99 fL Mean Corpuscular Hemoglobin 29 25-34 pg Mean Corpuscular Hemoglobin Concent 34 32-36 g/dL Red Cell Distribution Width 14.6 H 10.0-14.5 % Platelet Count 381 130-400 10^3/uL Mean Platelet Volume 10.0 9.0-12.2 fL Immature Granulocyte % (Auto) 1 % Neutrophils (%) (Auto) 77 H 42-75 % Lymphocytes (%) (Auto) 18 12-44 % Monocytes (%) (Auto) 5 0-12 % Eosinophils (%) (Auto) 0 0-10 % Basophils (%) (Auto) 0 0-10 % Neutrophils # (Auto) 15.6 H 1.8-7.8 X 10^3 Lymphocytes # (Auto) 3.6 1.0-4.0 X 10^3 Monocytes # (Auto) 0.9 0.0-1.0 X 10^3 Eosinophils # (Auto) 0.0 0.0-0.3 10^3/uL Basophils # (Auto) 0.0 0.0-0.1 10^3/uL Immature Granulocyte # (Auto) 0.2 H 0.0-0.1 10^3/uL Neutrophils % (Manual) 80 % Lymphocytes % (Manual) 15 % Monocytes % (Manual) 5 % Urine Color YELLOW Urine Clarity CLEAR Urine pH 6.0 5-9 Urine Specific [place] 1.020 1.016-1.022 Urine Protein NEGATIVE NEGATIVE Urine Glucose (UA) NEGATIVE NEGATIVE Urine Ketones NEGATIVE NEGATIVE Urine Nitrite NEGATIVE NEGATIVE Urine Bilirubin NEGATIVE NEGATIVE Urine Urobilinogen 0.2 < = 1.0 MG/DL Urine Leukocyte Esterase NEGATIVE NEGATIVE Urine RBC (Auto) NEGATIVE NEGATIVE Urine RBC 2-5 H /HPF Urine WBC 10-25 H /HPF Urine Squamous Epithelial Cells 25-50 H /HPF Urine Crystals NONE /LPF Urine Bacteria MODERATE H /HPF Urine Casts NONE /LPF Urine Mucus NEGATIVE /LPF Urine Culture Indicated NO Sodium Level 141 135-145 MMOL/L Potassium Level 2.8 L 3.6-5.0 MMOL/L Chloride Level 101 98-107 MMOL/L Carbon Dioxide Level 26 21-32 MMOL/L Anion Gap 14 5-14 MMOL/L Blood Urea Nitrogen 21 H 7-18 MG/DL Creatinine 1.37 H 0.60-1.30 MG/DL Estimat Glomerular Filtration Rate 49 BUN/Creatinine Ratio 15 Glucose Level 154 H 70-105 MG/DL Lactic Acid Level 1.43 0.50-2.00 MMOL/L Calcium Level 9.1 8.5-10.1 MG/DL Corrected Calcium 9.0 8.5-10.1 MG/DL Total Bilirubin 0.2 0.1-1.0 MG/DL Aspartate Amino Transf (AST/SGOT) 11 5-34 U/L Alanine Aminotransferase (ALT/SGPT) 10 0-55 U/L Alkaline Phosphatase 122 40-136 U/L Troponin I < 0.30 < 0.30 <0.30 NG/ML Total Protein 7.0 6.4-8.2 GM/DL Albumin 4.1 3.2-4.5 GM/DL My Orders Orders - RAQUEL HOLLAND MD Cbc With Automated Diff (12/31/22 01:10) Comprehensive Metabolic Panel (12/31/22 01:10) Troponin I Fs (12/31/22 01:10) Urinalysis (12/31/22 01:10) Lactic Acid Analyzer (12/31/22 01:10) Troponin I Oscar (12/31/22 01:10) Ekg Tracing (12/31/22 03:06) Monitor-Rhythm Ecg Trace Only (12/31/22 03:06) Ed Iv/Invasive Line Start (12/31/22 03:06) Chest 1 View Ap/Pa Only (12/31/22 03:06) Manual Differential (12/31/22 01:10) Ondansetron Injection (Zofran Injectio (12/31/22 03:30) Orphenadrine Inj (Ed Only) (Norflex Inje (12/31/22 03:30) Potassium Chloride (Tablet) (Potassium C (12/31/22 03:30) Medications Given in ED Current Medications Medications Dose Ordered Sig/Brissa Route Start Time Stop Time Status Last Admin Dose Admin Ondansetron HCl 4 mg ONCE ONCE IVP 12/31/22 03:30 12/31/22 03:26 DC 12/31/22 01:27 4 MG Orphenadrine Citrate 60 mg ONCE ONCE IV 12/31/22 03:30 12/31/22 03:26 DC 12/31/22 01:58 60 MG Potassium Chloride 40 meq ONCE ONCE PO 12/31/22 03:30 12/31/22 03:26 DC 12/31/22 03:20 40 MEQ Blood Pressure Mean: 96 Progress Progress Note : Progress Note 42-year-old female patient with GABRIELLE score of 3 and complaining of substernal chest pain with reproducible pain in exam. Patient stated she took nitro and aspirin prior to arrival to ER and rated her pain 8/10. Patient had a stable vital sign and treated with Norflex. Patient was sleeping deeply was waiting for test result but after waking her up asking for pain medication again. CBC, CMP, lactic acid, troponin x2, EKG and chest x-ray was ordered and reviewed by me. Patient had chronic ST depression the same as her previous EKGs without acute ST elevation. Chest x-ray did not show acute finding. 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 Patient potassium of 2.8 and currently taking potassium. Patient treated with oral potassium in ER and advised to take double dose of her potassium for the next 7 days. Patient had mild elevation of BUN and creatinine. 2 sets of troponin was negative. Patient advised to follow-up with her primary care physician and on air director and take Tylenol as needed for pain. Initial ECG Impression Date: Dec 31, 2022 Initial ECG Impression Time: : Initial ECG Rhythm: Normal Sinus Initial ECG Intervals: Normal Comment EKG interpreted by me. EKG showed sinus rhythm at rate of 74, incomplete right bundle branch block, UT interval of 180 and QT of 412 and QTc of 440, QRS duration of 115, moderate T wave abnormality in anterolateral leads the same as previous EKG in December 08 and other previous EKGs, no new changes, no acute ST and T wave elevation. Diagnostic Imaging Diagonstic Imaging: Xray Plain Films/CT/US/NM/MRI: chest Comments 1 view chest x-ray interpreted by me and did not show acute finding. Departure Impression Primary Impression: Chest wall pain Additional Impressions: Chronic hypokalemia Renal insufficiency Leukocytosis Qualified Codes: D72.829 - Elevated white blood cell count, unspecified Morbid obesity Disposition: 01 HOME, SELF-CARE Condition: Improved Departure-Patient Inst. Decision time for Depature: 03:22 Referrals: MAYKEL CUMMINS APRN (PCP/Family) Primary Care Physician Patient Instructions: Chest Pain, Adult ED Add. Discharge Instructions: Continue home medication Take your home potassium twice a day for the next 7 days Follow-up with your primary care physician in 3 to 5 days Follow-up with your on air director in 3 to 5 days Return to ER as needed Take [id number] Tylenol as needed for pain All discharge instructions reviewed with patient and/or family. Voiced understanding. RAQUEL HOLLAND MD Dec 31, 2022 03:17
[2022-12-31 03:23] VITALS: BP 139/69
[2022-12-31] MEDS ORDERED: POTASSIUM CHLORIDE 20 MEQ TABLET PO ONE (03:30)
[2022-12-31] MEDS ORDERED: ORPHENADRINE 60 MG/2 ML (NORFLEX) AMP (ED ONLY) IV ONE (03:30)
[2022-12-31] MEDS ORDERED: ONDANSETRON 4 MG/2 ML (SDV) Z0FRAN IVP ONE (03:30)
--- NOTE | 2022-12-31 07:06 | Diagnostic Imaging Report ---
HISTORY: Chest pain TECHNIQUE: Frontal view the chest COMPARISON: 12/08/2022 FINDINGS: Lung volumes are mildly large. There is mild cardiomegaly which may be accentuated by the portable technique. There is no pleural effusion or pneumothorax. No consolidation is seen. IMPRESSION: 1. No acute pulmonary abnormality is seen. Dictated by: Dictated on workstation # [id number]
== END 2022-12-31 03:26 | disposition expired ==
LOC: EDUNIT# 00:57 → ER FS 00:57
DX: R07.2 Precordial pain (principal); E87.6 Hypokalemia; N28.9 Disorder of kidney and ureter, unspecified; D72.829 Elevated white blood cell count, unspecified; E66.01 Morbid (severe) obesity due to excess calories; I45.10 Unspecified right bundle-branch block; Z68.43 Body mass index [BMI] 50.0-59.9, adult; F17.210 Nicotine dependence, cigarettes, uncomplicated
CPT/HCPCS: 36415; 71045; 80053; 81000; 83605; 84484; 85007; 85027; 93005; 93041

== ENCOUNTER 2023-01-21 22:53 | Emergency (ER) | payer MEDICAID ==
[2023-01-21 23:00] VITALS: BP 167/92
[2023-01-21] MEDS ORDERED: PROM25SU44 RC (23:13)
--- NOTE | 2023-01-21 23:13 | ED GI ---
General Chief Complaint: Abdominal/GI Problems Stated Complaint: VOMITING|DIARREAH Source of Information: Patient Exam Limitations: No Limitations History of Present Illness Date Seen by Provider: Jan 21, 2023 Time Seen by Provider: 22:34 Initial Comments 42-year-old female coming in due to a couple days of nonbloody nonbilious vomiting and nonbloody diarrhea. She is unsure if anyone around her has been sick. Denies any severe abdominal pain, fever, chest pain, shortness of breath, or any other concerns. She was able to eat a little bit earlier today. She is otherwise denying any other acute complaints. Allergies and Home Medications Allergies Coded Allergies: No Known Drug Allergies (Unverified , 01/21/23) Patient Home Medication List Home Medication List Reviewed: Yes Review of Systems Review of Systems Constitutional: No fever EENTM: No Symptoms Reported Respiratory: No Symptoms Reported Cardiovascular: No Symptoms Reported Gastrointestinal: See HPI Genitourinary: No Symptoms Reported Musculoskeletal: no symptoms reported Past Bsrjtxb-Jexjak-Ntqvmp Hx Patient Social History Tobacco Use?: Yes Tobacco type used: Cigarettes Physical Exam Vital Signs Capillary Refill : Height/Weight/BMI Height: '" Weight: lbs. oz. kg; BMI Method: General Appearance: WD/WN, no apparent distress HEENT: PERRL/EOMI, normal ENT inspection, pharynx normal, other (moist tongue) Neck: non-tender, full range of motion, supple, normal inspection Respiratory: chest non-tender, lungs clear, normal breath sounds, no respirato ry distress Cardiovascular: regular rate, rhythm, no edema Gastrointestinal: normal bowel sounds, non tender, soft; No distended, No guarding, No rebound Extremities: normal range of motion, non-tender, normal inspection, no pedal edema, no calf tenderness, normal capillary refill Back: normal inspection, no CVA tenderness Neurologic/Psychiatric: no motor/sensory deficits, alert, normal mood/affect Skin: normal color, warm/dry Progress/Results/Core Measures Progress Progress Note : Progress Note 42-year-old female with above history coming in for vomiting and diarrhea. ABCs were intact and vitals were stable on presentation. Physical exam reassuring including a soft and nontender abdomen. She was given IM Phenergan as well as Benadryl. She was given p.o. Pepcid. She is tolerating fluids here p.o. Given that it is vomiting and diarrhea in the absence of abdominal pain, likely is viral in nature. Additionally, she is not tachycardic, has a moist tongue, good capillary refill, and clinically appears hydrated. Labs and advanced imaging therefore not ordered. I believe she stable for discharge with outpatient follow-up. She was sent home with strict return precautions. Prescription sent for Phenergan suppositories since she has Zofran at home. Departure Impression Primary Impression: Vomiting and diarrhea Disposition: HOME, SELF-CARE Condition: Stable Departure-Patient Inst. Decision time for Depature: 23:20 Referrals: MAYKEL CUMMINS APRN (PCP/Family) Primary Care Physician Patient Instructions: Nausea and Vomiting, Adult ED, Diarrhea in adolescents and adults Add. Discharge Instructions: You can continue to take your Zofran as needed. If that is not working then Phenergan suppositories were sent to your pharmacy. You can try over-the-co unter antidiarrhea medicines as well. Follow-up with your regular doctor if you are not seeing improvement in the next couple of days or if you begin having severe abdominal pain that is not getting better after the vomiting or diarrhea episode. Scripts Promethazine HCl (Promethazine Suppository) 25 Mg Supp.rect 25 MG RC Q8H PRN for NAUSEA/VOMITING-2ND LINE for 4 Days, #12 SUPP.RECT Prov: TONY GOFF MD 01/21/23 TONY GOFF MD Jan 21, 2023 23:13
== END 2023-01-21 23:20 | disposition home or self-care (01) ==
LOC: MERGE 22:53 → ER FS 22:53
DX: R11.10 Vomiting, unspecified (principal); R19.7 Diarrhea, unspecified; F17.210 Nicotine dependence, cigarettes, uncomplicated; Z28.310 Unvaccinated for COVID-19
CPT/HCPCS: 99284

== ENCOUNTER 2023-01-24 16:33 | Emergency (ER) | payer MEDICAID ==
[~2023-01-24] VITALS: Ht 152.4 cm; Wt 117.5 kg
[2023-01-24] MEDS ORDERED: MAGNESIUM 1 GM/100 ML IVPB 100 ML IV STA (16:54)
[2023-01-24] MEDS ORDERED: POTASSIUM CL 10MEQ/50ML IVPB 50 ML IV STA (16:54)
[2023-01-24] MEDS ORDERED: LACTATED RINGERS 1,000 ML 1,000 ML IV STA (16:54)
[2023-01-24] MEDS ORDERED: POTASSIUM CHLORIDE 20 MEQ TABLET PO ONE (17:00)
[2023-01-24] MEDS ORDERED: HYDROcodone/ACETAMINOPHEN 5 MG/325 MG TABLET PO ONE (17:00)
--- NOTE | 2023-01-24 17:13 | ED General ---
General Chief Complaint: General Problems/Pain Stated Complaint: LOW POTASSIUM Source of Information: Patient Exam Limitations: No Limitations History of Present Illness Date Seen by Provider: Jan 24, 2023 Time Seen by Provider: 16:36 Initial Comments 42-year-old female with relatively chronic hypokalemia coming in due to low potassium levels. She takes swwo-[id number]-khcexhc potassium, no prescription strength. She had a potassium redrawn and was told it was 2.5 and when to come to the ER. Denies any chest pain, shortness of breath, abdominal pain, nausea, vomiting, diarrhea, focal weakness or numbness, or any other concerns. She does have a chronic low back pain which is persistent. She had diarrhea and vomiting over the weekend, significantly better now. Allergies and Home Medications Allergies Coded Allergies: gabapentin (Verified Allergy, Unknown, 01/25/19) metoclopramide (Unverified Allergy, Unknown, "CAUSES PT TO LOSE CONTROL OF MUSCLES", 01/25/19) Patient Home Medication List Home Medication List Reviewed: Yes Acetaminophen (Tylenol Extra Strength) 500 Mg Tablet, 1,000 MG PO Q8H PRN for PAIN-MILD (1-4), (Reported) Entered as Reported by: KEILY JONES on 12/28/21 1045 Aspirin (Aspirin EC) 81 Mg Tablet.dr, 81 MG PO DAILY, (Reported) Entered as Reported by: DC CANSECO on 11/04/21 0835 Atenolol (Atenolol) 50 Mg Tablet, 50 MG PO BID, (Reported) Entered as Reported by: DC CANSECO on 11/04/21 0835 Atorvastatin Calcium (Atorvastatin Calcium) 10 Mg Tablet, 10 MG PO HS, (Reported) Entered as Reported by: DC CANSECO on 11/04/21 0835 Buspirone HCl (Buspirone HCl) 15 Mg Tablet, 15 MG PO TID, (Reported) Entered as Reported by: DC CANSECO on 11/04/21 0835 Cephalexin (Cephalexin) 500 Mg Tablet, 500 MG PO TID Prescribed by: FADY DOE MD on 03/30/22 2137 Cyclobenzaprine HCl (Cyclobenzaprine HCl) 10 Mg Tablet, 10 MG PO Q8H PRN for SPASMS Prescribed by: TONY GOFF on 11/18/22 0121 Diphenhydramine HCl (Benadryl Allergy) 25 Mg Tablet, 50 MG PO BID, (Reported) Entered as Reported by: KEILY JONES on 12/28/21 1045 Estradiol (Estradiol Tablet) 1 Mg Tablet, 1 MG PO DAILY, (Reported) Entered as Reported by: MADDY DANIELLE on 05/20/19 1327 Ethosuximide (Ethosuximide) 250 Mg Capsule, 250 MG PO HS, (Reported) Entered as Reported by: MADDY DANIELLE on 04/12/16 0942 Fluoxetine HCl (Fluoxetine HCl) 40 Mg Capsule, 80 MG PO DAILY, (Reported) Entered as Reported by: LILIBETH DOUGLAS on 01/26/19 0349 Hydrochlorothiazide (Hydrochlorothiazide) 12.5 Mg Tablet, 12.5 MG PO DAILY, (Re ported) Entered as Reported by: DC CANSECO on 11/04/21 0835 Hydroxyzine HCl (Hydroxyzine HCl) 25 Mg Tablet, 25 MG PO TID PRN for ANXIETY, (Reported) Entered as Reported by: DC CANSECO on 11/04/21 0835 Ibuprofen (Ibuprofen) 600 Mg Tablet, 600 MG PO Q6H PRN for PAIN-MILD Prescribed by: TONY GOFF on 10/04/22 220 Isosorbide Mononitrate (Isosorbide Mononitrate ER) 60 Mg Tab, 60 MG PO DAILY, (Reported) Entered as Reported by: KEILY JONES on 12/28/21 1042 Lidocaine (Lidocaine 5% Patch) 5 % Adh..patch, 1 EACH TP Q12H PRN for Neuropathic pain Prescribed by: TONY GOFF on 10/04/22 220 Lidocaine (Lidocaine 5% Patch) 5 % Adh..patch, 1 EACH TP Q12H PRN for Neuropathic pain Prescribed by: TONY GOFF on 12/29/22 2321 Lisinopril (Lisinopril) 20 Mg Tablet, 20 MG PO BID, (Reported) Entered as Reported by: MADDY DANIELLE on 05/20/19 1324 Metaxalone (Metaxalone) 800 Mg Tablet, 800 MG PO BID, (Reported) Entered as Reported by: CARMELO CLAUDIO on 12/30/22 0306 Nitroglycerin (Nitroglycerin) 0.4 Mg Tab.subl, 0.4 MG SL UD PRN for CHEST PAIN, (Reported) Entered as Reported by: KEILY JONES on 12/28/21 1042 Pantoprazole Sodium (Pantoprazole Sodium) 40 Mg Tablet.dr, 40 MG PO BID Prescribed by: RAHEEM LI JR, MD on 12/29/21 1221 Potassium Chloride (Potassium Chloride) 20 Meq Tablet.er, 20 MEQ PO DAILY Prescribed by: TONY GOFF on 01/24/23 1847 Pregabalin (Pregabalin) 150 Mg Capsule, 150 MG PO TID, (Reported) Entered as Reported by: DC CANSECO on 11/04/21 0835 Promethazine HCl (Promethazine Suppository) 25 Mg Supp.rect, 25 MG RC Q6H PRN for NAUSEA/VOMITING-2ND LINE Prescribed by: TONY GOFF on 05/03/22 1028 Promethazine HCl (Promethazine Tablet) 25 Mg Tablet, 25 MG PO Q6H PRN for NA USEA/VOMITING Prescribed by: TONY GOFF on 12/13/22 0015 Promethazine HCl (Promethazine Suppository) 25 Mg Supp.rect, 25 MG RC Q8H PRN for NAUSEA/VOMITING-2ND LINE Prescribed by: TONY GOFF on 01/21/23 2313 Ranolazine (Ranexa) 500 Mg Tab.er.12h, 1,000 MG PO BID Prescribed by: RAHEEM LI JR, MD on 12/29/21 1221 Tizanidine HCl (Tizanidine HCl) 4 Mg Tablet, 4 MG PO TID PRN for MUSCLE SPASMS, (Reported) Entered as Reported by: KEILY JONES on 12/28/21 1042 Review of Systems Review of Systems Constitutional: No fever EENTM: no symptoms reported Respiratory: no symptoms reported Cardiovascular: no symptoms reported Gastrointestinal: see HPI Genitourinary: no symptoms reported Musculoskeletal: no symptoms reported Skin: no symptoms reported Psychiatric/Neurological: No Symptoms Reported Hematologic/Lymphatic: No Symptoms Reported Past Tmjeqve-Jksuen-Yrpqvd Hx Patient Social History Tobacco Use?: Yes Immunizations Up To Date Tetanus Booster (TDap): Unknown First/Initial COVID19 Vaccinat: unk Second COVID19 Vaccination Suhas: unk Third COVID19 Vaccination Date: unk Seasonal Allergies Seasonal Allergies: Yes Past Medical History Surgery/Hospitalization HX: Angina Surgeries: Yes (dental extractions, dxls, bmt, 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, LEFT EAR) Section, Ear Surgery, Gallbladder, Hysterectomy, Orthopedic, 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 Respiratory: Yes Asthma, COPD Currently Using CPAP: No Currently Using BIPAP: No Cardiac: Yes Coronary Artery Disease, Heart Murmur, Hypertension, Irregular Heartbeat Neurological: Yes Headaches /Migraines, Seizure Disorder 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 Disorders: Yes Female 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 Disorders: 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 [employer]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, 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 Sexually Transmitted Disease: No Genitourinary: Yes Kidney Stones Gastrointestinal: Yes Colitis, Gastroesophageal Reflux, Diverticulosis, Hemorrhoids, Polyps, Hiatal Hernia, Ulcer Musculoskeletal: Yes (spina bifida) Arthritis, Scoliosis, Chronic Back Pain Endocrine: No HEENT: Yes Chronic Ear Infection Hearing Impairment: Denies, Hard of Hearing Cancer: No Psychosocial: Yes Anxiety, Depression Integumentary: No Blood Disorders: No Family Medical History No Pertinent Family Hx Physical Exam Vital Signs Vital Signs - First Documented 01/24/23 17:53 Temp 36.4 Pulse 81 Resp 16 B/P (MAP) 107/61 (76) O2 Delivery Room Air Capillary Refill : Height, Weight, BMI Height: 5'0" Weight: 235lbs. 0oz. 106.901241nx; 51.00 BMI Method:Stated General Appearance: No Apparent Distress, WD/WN Eyes: Bilateral Eye Normal Inspection HEENT: PERRL/EOMI, Normal ENT Inspection, Pharynx Normal Neck: Full Range of Motion, Normal Inspection, Non Tender, Supple Respiratory: Chest Non Tender, Lungs Clear, Normal Breath Sounds, No Accessory Muscle Use, No Respiratory Distress Cardiovascular: Regular Rate, Rhythm, No Edema, Normal Peripheral Pulses Gastrointestinal: Normal Bowel Sounds, Non Tender, Soft Back: Normal Inspection, No CVA Tenderness Extremity: Normal Capillary Refill, Normal Inspection, Normal Range of Motion, Non Tender, No Calf Tenderness, No Pedal Edema Neurologic/Psychiatric: Alert, No Motor/Sensory Deficits, Normal Mood/Affect Skin: Normal Color, Warm/Dry Progress/Results/Core Measures Suspected Sepsis SIRS Temperature: Pulse: Respiratory Rate: Laboratory Tests 9/12/23 17:21: White Blood Count 19.4H Blood Pressure / Mean: Laboratory Tests 01/24/23 17:21: Creatinine 1.19, Platelet Count 315, Total Bilirubin 0.5 Results/Orders Lab Results Laboratory Tests Test 01/24/23 17:21 Range/Units White Blood Count 19.4 H 4.3-11.0 10^3/uL Red Blood Count 3.84 3.80-5.11 10^6/uL Hemoglobin 11.4 L 11.5-16.0 g/dL Hematocrit 33 L 35-52 % Mean Corpuscular Volume 86 80-99 fL Mean Corpuscular Hemoglobin 30 25-34 pg Mean Corpuscular Hemoglobin Concent 35 32-36 g/dL Red Cell Distribution Width 14.3 10.0-14.5 % Platelet Count 315 130-400 10^3/uL Mean Platelet Volume 9.9 9.0-12.2 fL Immature Granulocyte % (Auto) 1 % Neutrophils (%) (Auto) 74 42-75 % Lymphocytes (%) (Auto) 18 12-44 % Monocytes (%) (Auto) 6 0-12 % Eosinophils (%) (Auto) 1 0-10 % Basophils (%) (Auto) 0 0-10 % Neutrophils # (Auto) 14.4 H 1.8-7.8 10^3/uL Lymphocytes # (Auto) 3.5 1.0-4.0 10^3/uL Monocytes # (Auto) 1.1 H 0.0-1.0 10^3/uL Eosinophils # (Auto) 0.2 0.0-0.3 10^3/uL Basophils # (Auto) 0.1 0.0-0.1 10^3/uL Immature Granulocyte # (Auto) 0.1 0.0-0.1 10^3/uL Neutrophils % (Manual) 69 % Lymphocytes % (Manual) 19 % Monocytes % (Manual) 11 % Eosinophils % (Manual) 1 % Platelet Estimate ADEQUATE Blood Morphology Comment NORMAL Sodium Level 139 135-145 MMOL/L Potassium Level 2.6 L 3.6-5.0 MMOL/L Chloride Level 100 98-107 MMOL/L Carbon Dioxide Level 25 21-32 MMOL/L Anion Gap 14 5-14 MMOL/L Blood Urea Nitrogen 20 H 7-18 MG/DL Creatinine 1.19 0.60-1.30 MG/DL Estimat Glomerular Filtration Rate 58 BUN/Creatinine Ratio 17 Glucose Level 105 70-105 MG/DL Calcium Level 8.7 8.5-10.1 MG/DL Corrected Calcium 8.7 8.5-10.1 MG/DL Magnesium Level 1.5 L 1.6-2.4 MG/DL Total Bilirubin 0.5 0.1-1.0 MG/DL Aspartate Amino Transf (AST/SGOT) 19 5-34 U/L Alanine Aminotransferase (ALT/SGPT) 16 0-55 U/L Alkaline Phosphatase 102 40-136 U/L Troponin I < 0.30 <0.30 NG/ML Total Protein 6.8 6.4-8.2 GM/DL Albumin 4.0 3.2-4.5 GM/DL My Orders Orders - TONY GOFF MD Ed Iv/Invasive Line Start (01/24/23 16:54) Cbc With Automated Diff (01/24/23 16:54) Comprehensive Metabolic Panel (01/24/23 16:54) Magnesium (01/24/23 16:54) Potassium Cl 10meq/50ml Ivpb (Kcl 10 Meq (01/24/23 16:54) Potassium Chloride (Tablet) (Potassium C (01/24/23 17:00) Magnesium 1 Gm/100 Ml Ivpb (Magnesium 1 (01/24/23 16:54) Hydrocodone/Apap 5/325 Tablet (Hydrocod (01/24/23 17:00) Ekg Tracing (01/24/23 16:56) Troponin I Fs (01/24/23 17:22) Manual Differential (01/24/23 17:21) Magnesium 1 Gm/100 Ml Ivpb (Magnesium 1 (01/24/23 18:36) Potassium Cl 10meq/50ml Ivpb (Kcl 10 Meq (01/24/23 18:36) Ketorolac Injection (Ketorolac Injection (01/24/23 19:00) Medications Given in ED Current Medications Medications Dose Ordered Sig/Brissa Route Start Time Stop Time Status Last Admin Dose Admin Acetaminophen/ Hydrocodone Bitart 1 ea ONCE ONCE PO 01/24/23 17:00 01/24/23 17:01 DC 01/24/23 17:36 1 EA Magnesium Sulfate/ Dextrose 100 ml @ STK-MED ONCE IV 01/24/23 18:36 01/24/23 18:39 DC 01/24/23 18:40 100 MLS/HR Potassium Chloride 40 meq ONCE ONCE PO 01/24/23 17:00 01/24/23 17:01 DC 01/24/23 17:35 40 MEQ Potassium Chloride 50 ml @ ud STK-MED ONCE IV 01/24/23 18:36 01/24/23 18:39 DC 01/24/23 18:41 50 MLS/HR Vital Signs/I&O 01/24/23 17:53 Temp 36.4 Pulse 81 Resp 16 B/P (MAP) 107/61 (76) O2 Delivery Room Air Capillary Refill : Progress Note : Progress Note 42-year-old female with above history coming in due to low potassium. ABCs were intact and vitals were stable on presentation. EKG obtained and her QTc is just above 400 which is typically where she is at. An IV was placed and basic labs were obtained including repeat potassium which is 2.6 here. We will give her valarie th IV and p.o. potassium here. She was also given IV magnesium. I will also write her prescription for potassium. Considered admission, but given her QTc is normal and she is asymptomatic with it, I think she would be appropriate for discharge. ECG Initial ECG Impression Date: Jan 24, 2023 Initial ECG Impression Time: 17:23 Initial ECG Rate: 79 Initial ECG Rhythm: Normal Sinus Comment Narrow QRS, normal axis, no STEMI, ST depressions in the precordial leads, incomplete right bundle branch block, appears similar to prior, QTc 423 Departure Impression Primary Impression: Hypokalemia Additional Impression: Hypomagnesemia Disposition: 01 HOME, SELF-CARE Condition: Stable Departure-Patient Inst. Decision time for Depature: 19:50 Referrals: MAYKEL CUMMINS APRN (PCP/Family) Primary Care Physician Patient Instructions: Hypokalemia (DC) Add. Discharge Instructions: We will start you on a prescription strength potassium supplement. Take double the dose for the next 5 days, then go to the regular dose Scripts Potassium Chloride (Potassium Chloride) 20 Meq Tablet.er 20 MEQ PO DAILY for 30 Days, #30 TAB 2 Refills Prov: TONY GOFF MD 01/24/23 TONY GOFF MD Jan 24, 2023 17:13
[2023-01-24 17:26] LABS: BASOPHILS # (AUTO) 0.1 10^3/uL (0.0-0.1); BASOPHILS % (AUTO) 0 % (0-10); EOSINOPHILS # (AUTO) 0.2 10^3/uL (0.0-0.3); EOSINOPHILS % (AUTO) 1 % (0-10); HEMATOCRIT 33 % (35-52); HEMOGLOBIN 11.4 g/dL (11.5-16.0); LYMPHOCYTES # (AUTO) 3.5 10^3/uL (1.0-4.0); LYMPHOCYTES % (AUTO) 18 % (12-44); MEAN CORPUSCULAR HEMOGLOBIN 30 pg (25-34); MEAN CORPUSCULAR HGB CONC 35 g/dL (32-36); MEAN CORPUSCULAR VOLUME 86 fL (80-99); MEAN PLATELET VOLUME 9.9 fL (9.0-12.2); MONOCYTES # (AUTO) 1.1 10^3/uL (0.0-1.0); MONOCYTES % (AUTO) 6 % (0-12); NEUTROPHILS # (AUTO) 14.4 10^3/uL (1.8-7.8); NEUTROPHILS % (AUTO) 74 % (42-75); PLATELET COUNT 315 10^3/uL (130-400); WHITE BLOOD COUNT 19.4 10^3/uL (4.3-11.0)
[2023-01-24 17:45] LABS: NEUTROPHILS % (MANUAL) 69 %
[2023-01-24 17:46] LABS: EOSINOPHILS % (MANUAL) 1 %; LYMPHOCYTES % (MANUAL) 19 %; MONOCYTES % (MANUAL) 11 %; PLATELET ESTIMATE ADEQUATE; RBC MORPH NORMAL
[2023-01-24 17:52] LABS: CARBON DIOXIDE 25 MMOL/L (21-32); CHLORIDE 100 MMOL/L (98-107); POTASSIUM 2.6 MMOL/L (3.6-5.0); SODIUM 139 MMOL/L (135-145)
[2023-01-24 17:53] LABS: ALANINE AMINOTRANSFERASE 16 U/L (0-55); ALKALINE PHOSPHATASE 102 U/L (40-136); BILIRUBIN,TOTAL 0.5 MG/DL (0.1-1.0); BUN/CREATININE RATIO 17; CALCIUM 8.7 MG/DL (8.5-10.1); CREATININE SERUM 1.19 MG/DL (0.60-1.30); GFR ESTIMATED 58; GLUCOSE 105 MG/DL (70-105); MAGNESIUM 1.5 MG/DL (1.6-2.4); TOTAL PROTEIN 6.8 GM/DL (6.4-8.2)
[2023-01-24] MEDS ORDERED: MAGNESIUM 1 GM/100 ML IVPB 100 ML IV ONE (18:36)
[2023-01-24] MEDS ORDERED: POTASSIUM CL 10MEQ/50ML IVPB 50 ML IV ONE (18:36)
[2023-01-24] MEDS ORDERED: POTA-330 PO (18:47)
[2023-01-24] MEDS ORDERED: KETOROLAC INJ 15 MG/ML VIAL IVP PRN (19:00)
[2023-01-24 19:58] VITALS: BP 127/95
== END 2023-01-24 20:03 | disposition home or self-care (01) ==
LOC: EDUNIT# 16:33 → ER FS 16:35
DX: E87.6 Hypokalemia (principal); E83.42 Hypomagnesemia
CPT/HCPCS: 36415; 80053; 83735; 84484; 85007; 85027; 93005

== ENCOUNTER → 2023-02-21 | Outpatient (CLI) | payer MEDICAID ==
[~2023-02-21] MED LIST changes: +ALBU2.5V4 INH; +AMLO2.5T4 PO; +ASPI-999 PO; +ATOR40TA70 PO; +BUSP30TA2 PO; +CARI1.5C PO; +CLOP75TA28 PO; +FERR325T24 PO; +FLUT1BLS13 INH; +FURO-124 PO; +HYDR50TA76 PO; +NYST1000 PO; +POTA-179 PO; +POTA-330 PO; -PREG150C46 PO; +PREG150C47 PO; +PREG200C29 PO; +RANO10005 PO; +TIOT18CA7 INH
== END ==
LOC: CARD 08:00 → UNMERGE 12:15 → MERGE 03-21 12:30
PROVIDERS: ATTEND Internal Medicine Cardiovascular Disease
DX: I51.7 Cardiomegaly (principal); I25.118 Atherosclerotic heart disease of native coronary artery with other forms of angina pectoris
CPT/HCPCS: 93306

== ENCOUNTER → 2023-02-21 | Outpatient (CLI) | payer MEDICAID ==
[~2023-02-21] VITALS: Ht 152 cm; Wt 118.0 kg
[~2023-02-21] MED LIST changes: +CATHETER FLUSH 10 ML SYR IVP PRN; -NYST1000 PO; +REGADENOSON 0.4 MG/5 ML SYR IV ONE
[2023-02-21 13:08] VITALS: BP 129/62
--- NOTE | 2023-02-23 13:07 | STRESS TEST ---
DATE OF SERVICE: 02/21/2023 RESTING AND POST REGADENOSON TECHNETIUM-99M TETROFOSMIN SPECT CT IMAGING ORDERING PHYSICIAN: Dr. Gary. PRIMARY PHYSICIAN: Gertrude Lam APRN. CLINICAL DIAGNOSIS: Coronary artery disease. Baseline images were carried out after injection of 11 mCi of technetium-99m tetrofosmin. This was followed by 0.4 mg regadenoson and 31.7 mCi of technetium-99m tetrofosmin for stress imaging. The electrocardiogram showed sinus rhythm at baseline. It did not change significantly with regadenoson infusion. Review of images at rest and following stress does not indicate any significant perfusion defects consistent with myocardial ischemia or infarction. Gated images show normal global left ventricular systolic function with normal regional wall motion. Left ventricular ejection fraction is calculated to be 77%. CONCLUSIONS: 1. No evidence of any significant myocardial ischemia or infarction on this study. 2. Normal regional wall motion. 3. Normal global left ventricular systolic function with a calculated ejection fraction of 77%. Job ID: [id number] DocumentID: [id number] Dictated Date: 02/23/2023 09:20:27 Bolter Helper Date: 02/23/2023 13:04:00 Dictated By: PITER GARY MD; KRISTEN; FACP; FACC;
== END ==
LOC: MERGE 08:34 → CARD 08:34
PROVIDERS: ATTEND Internal Medicine Cardiovascular Disease
DX: I25.118 Atherosclerotic heart disease of native coronary artery with other forms of angina pectoris (principal)
CPT/HCPCS: 78452; 93017; A9502

== ENCOUNTER 2023-02-26 08:36 | Emergency (ER) | payer MEDICAID, OTHER ==
[~2023-02-26] VITALS: Ht 155 cm; Wt 119.0 kg
[~2023-02-26 08:36] MED LIST changes: -AMLO2.5T4 PO; -ASPI-999 PO; -ATOR40TA70 PO; -BUSP30TA2 PO; -CARI1.5C PO; -CATHETER FLUSH 10 ML SYR IVP PRN; -CLOP75TA28 PO; -FERR325T24 PO; -FLUT1BLS13 INH; -HYDR50TA76 PO; -POTA-179 PO; -PREG200C29 PO; -RANO10005 PO; -REGADENOSON 0.4 MG/5 ML SYR IV ONE; -TIOT18CA7 INH
[2023-02-26 09:10] LABS: BASOPHILS % (AUTO) 0 % (0-10); EOSINOPHILS # (AUTO) 0.2 10^3/uL (0.0-0.3); EOSINOPHILS % (AUTO) 1 % (0-10); HEMATOCRIT 32 % (35-52); HEMOGLOBIN 10.7 g/dL (11.5-16.0); LYMPHOCYTES # (AUTO) 2.7 10^3/uL (1.0-4.0); LYMPHOCYTES % (AUTO) 24 % (12-44); MEAN CORPUSCULAR HEMOGLOBIN 30 pg (25-34); MEAN CORPUSCULAR HGB CONC 33 g/dL (32-36); MEAN CORPUSCULAR VOLUME 92 fL (80-99); MEAN PLATELET VOLUME 9.7 fL (9.0-12.2); MONOCYTES # (AUTO) 0.4 10^3/uL (0.0-1.0); MONOCYTES % (AUTO) 3 % (0-12); NEUTROPHILS # (AUTO) 8.3 10^3/uL (1.8-7.8); NEUTROPHILS % (AUTO) 71 % (42-75); PLATELET COUNT 304 10^3/uL (130-400); WHITE BLOOD COUNT 11.6 10^3/uL (4.3-11.0)
[2023-02-26] MEDS ORDERED: NITROGLYCERIN 2% OINT 1 GM UNIT DOSE PACKET TOP ONE (09:15)
[2023-02-26] MEDS ORDERED: HYDROcodone/ACETAMINOPHEN 5 MG/325 MG TABLET PO ONE (09:15)
--- NOTE | 2023-02-26 09:19 | ED Chest Pain ---
General Chief Complaint: Chest Pain Stated Complaint: CHEST PAIN Source: patient Exam Limitations: no limitations History of Present Illness Date Seen by Provider: Feb 26, 2023 Time Seen by Provider: 08:40 Initial Comments 42-year-old female with past medical history of CAD coming in due to chest pain. Been going on for roughly 2 hours, but has truly been going on for months to years. 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 She had an echo done this past week as well as a stress test. She states she is scheduled for cardiac cath in a couple of days with Dr. Gary. The pain is sharp, center of her chest, constant, nothing really seems to make it better or worse. She took 3 nitro earlier which did not really do anything for it. Denies any fever, shortness of breath, weakness, numbness, or any other concerns. Allergies and Home Medications Allergies Coded Allergies: gabapentin (Verified Allergy, Unknown, 02/26/23) metoclopramide (Verified Allergy, Unknown, 02/26/23) Patient Home Medication List Home Medication List Reviewed: Yes Review of Systems Review of Systems Constitutional: No fever EENTM: No Symptoms Reported Respiratory: No Symptoms Reported Cardiovascular: See HPI Gastrointestinal: No Symptoms Reported Genitourinary: No Symptoms Reported Musculoskeletal: no symptoms reported Past Gcqjydz-Wolwwc-Xhjtdn Hx Patient Social History Tobacco Use?: Yes Tobacco type used: Cigarettes Physical Exam Vital Signs Vital Signs - First Documented 02/26/23 10:20 Pulse 65 Resp 20 B/P (MAP) 154/77 (102) Pulse Ox 95 O2 Delivery Room Air Capillary Refill : Height, Weight, BMI Height: '" Weight: lbs. oz. kg; BMI Method: General Appearance: No Apparent Distress, WD/WN HEENT: PERRL/EOMI, Normal ENT Inspection, Pharynx Normal Neck: Full Range of Motion, Normal Inspection, Non Tender, Supple Respiratory: Chest Non Tender, Lungs Clear, Normal Breath Sounds, No Accessory Muscle Use, No Respiratory Distress Cardiovascular: Regular Rate, Rhythm, No Edema, Normal Peripheral Pulses Gastrointestinal: Normal Bowel Sounds, Non Tender, Soft; No Distended, No Guarding Extremity: Normal Capillary Refill, Normal Inspection, Normal Range of Motion, Non Tender, No Calf Tenderness, No Pedal Edema Neurologic/Psychiatric: Alert, No Motor/Sensory Deficits, Normal Mood/Affect Skin: Normal Color, Warm/Dry Progress/Results/Core Measures Results/Orders Lab Results Laboratory Tests Test 02/26/23 08:55 02/26/23 10:28 Range/Units White Blood Count 11.6 H 4.3-11.0 10^3/uL Red Blood Count 3.54 L 3.80-5.11 10^6/uL Hemoglobin 10.7 L 11.5-16.0 g/dL Hematocrit 32 L 35-52 % Mean Corpuscular Volume 92 80-99 fL Mean Corpuscular Hemoglobin 30 25-34 pg Mean Corpuscular Hemoglobin Concent 33 32-36 g/dL Red Cell Distribution Width 15.5 H 10.0-14.5 % Platelet Count 304 130-400 10^3/uL Mean Platelet Volume 9.7 9.0-12.2 fL Immature Granulocyte % (Auto) 0 % Neutrophils (%) (Auto) 71 42-75 % Lymphocytes (%) (Auto) 24 12-44 % Monocytes (%) (Auto) 3 0-12 % Eosinophils (%) (Auto) 1 0-10 % Basophils (%) (Auto) 0 0-10 % Neutrophils # (Auto) 8.3 H 1.8-7.8 10^3/uL Lymphocytes # (Auto) 2.7 1.0-4.0 10^3/uL Monocytes # (Auto) 0.4 0.0-1.0 10^3/uL Eosinophils # (Auto) 0.2 0.0-0.3 10^3/uL Basophils # (Auto) 0.0 0.0-0.1 10^3/uL Immature Granulocyte # (Auto) 0.0 0.0-0.1 10^3/uL Prothrombin Time 13.4 12.2-14.7 SEC INR Comment 1.0 0.8-1.4 Activated Partial Thromboplast Time 29 24-35 SEC Sodium Level 141 135-145 MMOL/L Potassium Level 3.2 L 3.6-5.0 MMOL/L Chloride Level 104 98-107 MMOL/L Carbon Dioxide Level 28 21-32 MMOL/L Anion Gap 9 5-14 MMOL/L Blood Urea Nitrogen 9 7-18 MG/DL Creatinine 0.80 0.60-1.30 MG/DL Estimat Glomerular Filtration Rate 94 BUN/Creatinine Ratio 11 Glucose Level 89 70-105 MG/DL Calcium Level 8.7 8.5-10.1 MG/DL Corrected Calcium 8.8 8.5-10.1 MG/DL Magnesium Level 1.8 1.6-2.4 MG/DL Total Bilirubin 0.7 0.1-1.0 MG/DL Aspartate Amino Transf (AST/SGOT) 13 5-34 U/L Alanine Aminotransferase (ALT/SGPT) 10 0-55 U/L Alkaline Phosphatase 110 40-136 U/L Troponin I < 0.30 < 0.30 <0.30 NG/ML Pro-B-Type Natriuretic Peptide 1717.0 H <125.0 PG/ML Total Protein 6.8 6.4-8.2 GM/DL Albumin 3.9 3.2-4.5 GM/DL Lipase 13 8-78 U/L My Orders Orders - TONY GOFF MD Cbc And Automated Diff (02/26/23 09:04) Magnesium (02/26/23 09:04) Chest 1 View Ap/Pa Only (02/26/23 09:04) Ekg Tracing (02/26/23 09:04) Comprehensive Metabolic Panel (02/26/23 09:04) Protime With Inr (02/26/23 09:04) Partial Thromboplastin Time (02/26/23 09:04) O2 (02/26/23 09:04) Monitor-Rhythm Ecg Trace Only (02/26/23 09:04) Ed Iv/Invasive Line Start (02/26/23 09:04) Lipase (02/26/23 09:04) Troponin I Fs (02/26/23 09:04) Probnp Fs (02/26/23 09:04) Nitroglycerin Ointment (Nitroglycerin (02/26/23 09:15) Hydrocodone/Apap 5/325 Tablet (Hydrocod (02/26/23 09:15) Troponin I Fs (02/26/23 10:30) Medications Given in ED Current Medications Medications Dose Ordered Sig/Brissa Route Start Time Stop Time Status Last Admin Dose Admin Acetaminophen/ Hydrocodone Bitart 1 ea ONCE ONCE PO 02/26/23 09:15 02/26/23 09:16 DC 02/26/23 09:09 1 EA Nitroglycerin 1 inch ONCE ONCE TOP 02/26/23 09:15 02/26/23 09:16 DC 02/26/23 09:10 1 INCH Vital Signs/I&O 02/26/23 10:20 Pulse 65 Resp 20 B/P (MAP) 154/77 (102) Pulse Ox 95 O2 Delivery Room Air Progress Progress Note : Progress Note 42-year-old female with above history coming in due to chest pain. ABCs were intact and vitals were stable on presentation. Physical exam reassuring with no acute abnormalities. EKG ordered and interpreted by me showing no acute ischemic changes. I reviewed her stress test from 5 days ago, it was read as normal. She had an echo done as well during that time which was also normal. An IV was placed and basic labs were obtained and were significant for negative troponin x2, normal white blood cell count, normal creatinine. I think ACS is unlikely given the constant pain for hours with a negative troponin. She has no lower extremity swelling or pain, no tachycardia, and I think a PE would be very unlikely. Additionally, she has no signs of right heart strain on echo recently. Patient was completely asleep every time we checked on her, very comfortable. I believe she stable for discharge with cardiology follow-up that she has in less than 48 hours. She was sent home with strict return precautions. Initial ECG Impression Date: Feb 26, 2023 Initial ECG Impression Time: 08:46 Initial ECG Rate: 66 Initial ECG Rhythm: Normal Sinus Comment Narrow QRS, normal axis, no significant ST changes or T wave abnormalities Diagnostic Imaging Diagonstic Imaging: Xray (chest) Comments [facility] [place], [place] NAME: JUVENTINO BEAN [facility] REC#: [id number] PT STATUS: REG ER : 1980 PHYSICIAN: TONY GOFF MD ADMIT DATE: 02/26/23/ER FS Draft Date of Exam:02/26/23 CHEST 1 VIEW AP/PA ONLY CHEST 1 VIEW AP/PA ONLY. Indication: Chest pain. Comparison: 02/06/2023. Findings: Mild enlargement of the cardiac silhouette is unchanged. Visible lungs are clear. No pleural effusion or pneumothorax. Impression: No acute cardiopulmonary process by portable radiography. Dictated on workstation # [id number] Dict: 02/26/23921 Trans: 02/26/23923 [id number] Interpreted by: ARLIN ANNE MD Electronically signed by: [facility] [place], [place] NAME: JUVENTINO BEAN [facility] REC#: [id number] : 1980 LOCATION: CARD ADMIT DATE: 02/21/23 MYOCARDIAL SPECT MULTI DATE OF SERVICE: 02/21/2023 RESTING AND POST REGADENOSON TECHNETIUM-99M TETROFOSMIN SPECT CT IMAGING ORDERING PHYSICIAN: Dr. Gary. PRIMARY PHYSICIAN: Gertrude Lam APRN. CLINICAL DIAGNOSIS: Coronary artery disease. Baseline images were carried out after injection of 11 mCi of technetium-99m tetrofosmin. This was followed by 0.4 mg regadenoson and 31.7 mCi of technetium-99m tetrofosmin for stress imaging. The electrocardiogram showed sinus rhythm at baseline. It did not change significantly with regadenoson infusion. Review of images at rest and following stress does not indicate any significant perfusion defects consistent with myocardial ischemia or infarction. Gated images show normal global left ventricular systolic function with normal regional wall motion. Left ventricular ejection fraction is calculated to be 77%. CONCLUSIONS: 1. No evidence of any significant myocardial ischemia or infarction on this study. 2. Normal regional wall motion. 3. Normal global left ventricular systolic function with a calculated ejection fraction of 77%. Job ID: [id number] DocumentID: [id number] Dictated Date: 02/23/2023 09:20:27 Form Press Operator Date: 02/23/2023 13:04:00 Dictated By: PITER GARY MD; MA; FACP; FACC; [id number] <Dictated by PITER GARY MD, MA, FACP, FACC, FSCAI, CCDS> 02/23/23 0920 Departure Impression Primary Impression: Chest pain Qualified Codes: R07.82 - Intercostal pain Disposition: 01 HOME, SELF-CARE Condition: Stable Departure-Patient Inst. Decision time for Depature: 11:15 Patient Instructions: Chest Pain, Adult ED Add. Discharge Instructions: We are not seeing any evidence of active heart attack or anything that would be imminently life-threatening today. Please be sure to follow-up with Dr. Gary as you stated. Continue to take Tylenol as needed for pain. Work/School Note: Work Release Form Date Seen in the Emergency Department: Feb 26, 2023 Return to Work: Feb 27, 2023 Restrictions: No Restrictions TONY GOFF MD Feb 26, 2023 09:19
[2023-02-26 09:22] LABS: PROTHROMBIN TIME PATIENT 13.4 SEC (12.2-14.7)
--- NOTE | 2023-02-26 09:24 | Diagnostic Imaging Report ---
CHEST 1 VIEW AP/PA ONLY. Indication: Chest pain. Comparison: 02/06/2023. Findings: Mild enlargement of the cardiac silhouette is unchanged. Visible lungs are clear. No pleural effusion or pneumothorax. Impression: No acute cardiopulmonary process by portable radiography. Dictated by: Dictated on workstation # [id number]
[2023-02-26 09:36] LABS: ALANINE AMINOTRANSFERASE 10 U/L (0-55); ALBUMIN 3.9 GM/DL (3.2-4.5); ALKALINE PHOSPHATASE 110 U/L (40-136); BILIRUBIN,TOTAL 0.7 MG/DL (0.1-1.0); BUN/CREATININE RATIO 11; CALCIUM 8.7 MG/DL (8.5-10.1); CARBON DIOXIDE 28 MMOL/L (21-32); CHLORIDE 104 MMOL/L (98-107); GFR ESTIMATED 94; GLUCOSE 89 MG/DL (70-105); LIPASE 13 U/L (8-78); MAGNESIUM 1.8 MG/DL (1.6-2.4); POTASSIUM 3.2 MMOL/L (3.6-5.0); SODIUM 141 MMOL/L (135-145); TOTAL PROTEIN 6.8 GM/DL (6.4-8.2)
[2023-02-26 10:20] VITALS: BP 154/77
[2023-02-26] MEDS ORDERED: CYCLOBENZAPRINE 10 MG TABLET PO STA (11:13)
== END 2023-02-26 11:15 | disposition home or self-care (01) ==
LOC: ER FS 08:37 → MERGE 08:37 → ER FS 11:15
DX: R07.89 Other chest pain (principal); F17.210 Nicotine dependence, cigarettes, uncomplicated; Z86.79 Personal history of other diseases of the circulatory system
CPT/HCPCS: 36415; 71045; 80053; 83690; 83735; 83880; 84484; 85025; 85610; 85730; 93041

== ENCOUNTER 2023-02-28 08:03 | Day surgery (SDC) | payer MEDICAID ==
[~2023-02-28] VITALS: Ht 152 cm; Wt 120.0 kg
[2023-02-28] VITALS (9 sets, daily range): BP systolic 118–161; BP diastolic 67–88
[2023-02-28] MEDS ORDERED: NS IV 1000 ML 1,000 ML IV ONE (08:15)
[2023-02-28] MEDS ORDERED: LIDOCAINE 1% INJ 20 ML VIAL ONE (08:21)
[2023-02-28] MEDS ORDERED: HEParin (CATH LAB) 2,000 ML IV ONE (08:21)
[2023-02-28] MEDS ORDERED: NS IV 1000 ML 1,000 ML ONE (08:21)
[2023-02-28 08:43] LABS: HEMATOCRIT 33 % (35-52); MEAN CORPUSCULAR HEMOGLOBIN 30 pg (25-34); MEAN CORPUSCULAR HGB CONC 34 g/dL (32-36); MEAN CORPUSCULAR VOLUME 89 fL (80-99); MEAN PLATELET VOLUME 9.8 fL (9.0-12.2); PLATELET COUNT 356 10^3/uL (130-400); WHITE BLOOD COUNT 13.1 10^3/uL (4.3-11.0)
[2023-02-28 08:52] LABS: INR 1.2 (0.8-1.4); PROTHROMBIN TIME PATIENT 15.1 SEC (12.2-14.7)
[2023-02-28 09:02] LABS: BILIRUBIN,TOTAL 1.1 MG/DL (0.1-1.0); CALCIUM 9.1 MG/DL (8.5-10.1); CREATININE SERUM 0.77 MG/DL (0.60-1.30); POTASSIUM 3.1 MMOL/L (3.6-5.0); TOTAL PROTEIN 7.2 GM/DL (6.4-8.2)
[2023-02-28] MEDS ORDERED: PREG200C29 PO (09:24)
[2023-02-28] MEDS ORDERED: AMLO2.5T4 PO (09:24)
[2023-02-28] MEDS ORDERED: LIDO700A45 TP (09:24)
[2023-02-28] MEDS ORDERED: CLOP75TA28 PO (09:24)
[2023-02-28] MEDS ORDERED: RANO10005 PO (09:24)
[2023-02-28] MEDS ORDERED: HYDR50TA76 PO (09:24)
[2023-02-28] MEDS ORDERED: FERR325T24 PO (09:24)
[2023-02-28] MEDS ORDERED: BUSP30TA2 PO (09:24)
[2023-02-28] MEDS ORDERED: ALBU2.5V4 INH (09:24)
[2023-02-28] MEDS ORDERED: POTA-179 PO (09:24)
[2023-02-28] MEDS ORDERED: ONDA4TAB11 PO (09:24)
[2023-02-28] MEDS ORDERED: FLUT1BLS13 INH (09:24)
[2023-02-28] MEDS ORDERED: ATOR40TA70 PO (09:24)
[2023-02-28] MEDS ORDERED: PANT40TA52 PO (09:24)
[2023-02-28] MEDS ORDERED: TIOT18CA7 INH (09:24)
[2023-02-28] MEDS ORDERED: CARI1.5C PO (09:29)
[2023-02-28] MEDS ORDERED: fentaNYL INJECTION 100 MCG/2 ML VIAL ONE (10:55)
[2023-02-28] MEDS ORDERED: HEParin 1000 UNIT/ML (10ML VIAL) FOR BOLUS ONE (10:55)
[2023-02-28] MEDS ORDERED: MIDAZOLAM INJ 5 MG/5 ML VIAL ONE (10:55)
[2023-02-28] MEDS ORDERED: VERAPAMIL 5 MG/2 ML (CALAN) VIAL IV ONE (10:56)
[2023-02-28] MEDS ORDERED: NITRO DRIP 25000 MCG/D5W 250 ML IV ONE (10:56)
--- NOTE | 2023-02-28 12:39 | Cardiac Procedure Note-CS/ASA ---
Pre-Procedure Note Pre-Op Procedure Note Date of Available H&P: Feb 24, 2023 Date H&P Reviewed: Feb 28, 2023 Time H&P Reviewed: 10:00 History & Physical: H&P Reviewed, No changes noted Moderate Sedation PreProcedure ASA Score 3 Airway Lungs Heart ASA score ASA 1: a normal healthy patient ASA 2: a patient with a mild systemic disease (mid diabetes, controlled hypertension, obesity ASA 3: a patient with a severe systemic disease that limits activity (angina, COPD, prior Myocardial infarction) ASA 4: a patient with an incapacitating disease that is a constant threat to life (CHF, renal failure) ASA 5: a moribund patient not expected to survive 24 hrs. (ruptured aneurysm) ASA 6: a declared brain- patient whose organs are being harvested. For emergent operations, add the letter E after the classification Mallampati Classification Grade 3 Sedation Plan Analgesia, Amnesia, Plan communicated to team members The patient is an appropriate candidate to undergo the planned procedure, sedation, and anesthesia. The patient immediately re-assessed prior to indication. PITER TRACY MD FACP FAC CCDS Feb 28, 2023 12:39
--- NOTE | 2023-02-28 12:51 | Cardiac Cath Report ---
CARDIAC CATHETERIZATION DATE OF PROCEDURE: 02-28-23 INDICATION: Chest pain HISTORY: The patient is a 42 year old female with chest pain that has some features of typical angina and that has caused great anxiety to the patient andrea use she also has a prior h/o moderated CAD on a previous cardiac cath by Dr Mcwilliams PROCEDURES PERFORMED: 1. Cor angio 2. iFR of mid LAD 3. iFR of ostial and prox Diag 2 PROCEDURE DESCRIPTION: After informed consent and in the fasting state, left heart catheterization was performed through the R radial artery utilizing a 6 [place] system by percutaneous approach. TIG for L cor; JR4 for R cors; pigtail for LHC; JL3.5 Guide for iFR of LAD and Diag 2 HEMODYNAMICS: LVEDP 33mmHg; no significant pressure gradient on pullback across the aortic valve CORONARY ANGIOGRAPHY: Left main coronary artery: Ok Left anterior descending coronary artery: 40% mid LAD and ostial D2 with iFR 0.91 across LAD lesion and iFR 0.91 across D2 lesion Left circumflex coronary artery: Nondominant, mild plaques Right coronary artery: Dominant, mild plaques iFR of LAD and D2: Guide: 6F JL3.5 Wire: Omni iFR across mid LAD 0.91 iFR across ostial and prox D2 0.91 IMPRESSION: 1. Mild CAD: Left anterior descending coronary artery: 40% mid LAD and ostial D2 with iFR 0.91 across LAD lesion and iFR 0.91 across D2 lesion. Mild plaques in LCx and dominant RCA 2. LVEDP 33 mmHg PLAN Medical therapy and risk factor modification PITER TRACY MD [facility] Feb 28, 2023 12:51
[2023-02-28] MEDS ORDERED: PATIENT MAY USE OWN MEDS, ALL PO SCH (13:00)
[2023-02-28] MEDS ORDERED: POTASSIUM CHLORIDE 20 MEQ TABLET PO ONE (13:00)
[2023-02-28] MEDS ORDERED: ASPI-999 PO (13:00)
[2023-02-28] MEDS ORDERED: NS IV 1000 ML 1,000 ML IV SCH (13:00)
--- NOTE | 2023-02-28 13:01 | Discharge Inst-Cardiology ---
Discharge Inst-Cardiac Discharge Medications New Medications: Aspirin (Aspirin) 81 Mg Tab.chew 81 MG PO DAILY for 90 Days, #90 TAB 3 Refills Continued Medications: Albuterol Sulfate (Albuterol Sulfate) 2.5 Mg/3 Ml (0.083 %) Vial.neb 2.5 MG INH Q6H PRN for SHORTNESS OF BREATH, EA Amlodipine Besylate (Amlodipine Besylate) 2.5 Mg Tablet 2.5 MG PO DAILY, TAB Aspirin (Aspirin EC) 81 Mg Tablet.dr 81 MG PO DAILY, TAB Atenolol (Atenolol) 50 Mg Tablet 50 MG PO BID, TAB Atorvastatin Calcium (Atorvastatin Calcium) 40 Mg Tablet 40 MG PO DAILY, TAB Buspirone HCl (Buspirone HCl) 30 Mg Tablet 30 MG PO BID, TAB Cariprazine Hydrochloride (Vraylar) 1.5 Mg Capsule 1.5 MG PO DAILY, CAP Clopidogrel Bisulfate (Clopidogrel) 75 Mg Tablet 75 MG PO DAILY, TAB Diphenhydramine HCl (Benadryl Allergy) 25 Mg Tablet 25 MG PO DAILY PRN for ALLERGIES, TAB Estradiol (Estradiol Tablet) 1 Mg Tablet 1 MG PO DAILY, TAB Ethosuximide (Ethosuximide) 250 Mg Capsule 250 MG PO HS, CAP Ferrous Sulfate (Ferosul) 325 Mg (65 Mg Iron) Tablet 325 MG PO DAILY, TAB Fluoxetine HCl (Fluoxetine HCl) 40 Mg Capsule 80 MG PO DAILY TAKES 2 (40MG) CAPS Fluticasone Propion/Salmeterol (Fluticasone-Salmeterol 500-50) 500 Mcg-50 Mcg/Dose Blst.w.dev 1 PUFF INH BID, EA Hydroxyzine HCl (Hydroxyzine HCl) 50 Mg Tablet 50 MG PO Q8H PRN for ANXIETY, TAB Isosorbide Mononitrate (Isosorbide Mononitrate ER) 60 Mg Tab 60 MG PO DAILY, TAB Lidocaine (Lidocaine 5% Patch) 5 % Adh..patch 1 EACH TP Q12H PRN for Neuropathic pain, PATCH Metaxalone (Metaxalone) 800 Mg Tablet 800 MG PO TID PRN for FLUID RETENTION, TAB Nitroglycerin (Nitroglycerin) 0.4 Mg Tab.subl 0.4 MG SL UD PRN for CHEST PAIN, TAB Ondansetron (Ondansetron Odt) 4 Mg Tab.rapdis 4 MG PO Q8H PRN for NAUSEA/VOMITING-1ST LINE, TAB Pantoprazole Sodium (Pantoprazole Sodium) 40 Mg Tablet.dr 40 MG PO BID, TAB Potassium Chloride (Potassium Chloride) 20 Meq Tab.er.prt 20 MEQ PO DAILY, TAB Pregabalin (Pregabalin) 200 Mg Capsule 200 MG PO TID, CAP Ranolazine (Ranolazine ER) 1,000 Mg Tab.er.12h 1000 MG PO BID, TAB Tiotropium [place] (Tiotropium [place]) 18 Mcg Cap.w.dev 1 PUFF INH DAILY, PITER REED MD FACP FAC CCDS Feb 28, 2023 13:01
--- NOTE | 2023-02-28 13:02 | Discharge Inst-Post CATH ---
Discharge Inst-CATH/EP Post Cardiac Cath/EP D/C Inst Follow Up/Plan F/u with Dr Gary in 2-3 weeks ACTIVITY * Go Home directly and rest. * Limit activity of the leg (or wrist if it was used) for 7 days including aerobics, swimming, jogging, bicycling, etc. * Restrict stair-climbing for 7 days if possible, if not, climb up with your non-cath leg, then bring together on the same step. * Avoid lifting, pushing, pulling or excessive movement of the affected extremity for 7 days. * Customary sexual activity may be resumed after 2 days-use caution not to use a position that strains or causes pain to the affected extremity. * No driving for 24 hours. * NO SMOKING. * Avoid straining for bowel movements for 7 days. * Gentle walking on level ground is allowed. * Returning to work will depend on the type of procedure and the results. Your doctor will discuss this with you. CALL YOUR DOCTOR FOR ANY OF THE FOLLOWING: *If bleeding from the puncture site occurs- Apply gentle pressure to site with clean cloth and call your doctor or EMS. * If a knot or lump forms under the skin, increases in size, or causes pain. * If bruising appears to be worsening or moving further down your leg instead of disappearing. * Temperature above 101 F. CARE OF YOUR GROIN INCISION; * Bruising or purple discoloration of the skin near the puncture site is common. * You may shower only, no bathtub bathing for 5 days. Be careful to avoid slipping as your leg may feel stiff. * If a closure device was used on your femoral artery, please see the attached guide regarding care of the device and your leg. * Leave dressing on FOR 24 hours. CARE OF YOUR WRIST INCISION; * Bruising or purple discoloration of the skin near the puncture site is common. * You may shower. * DO NOT submerge wrist. * Leave dressing on FOR 24 hours. PITER GARY MD [facility] CCDS Feb 28, 2023 13:02
== END 2023-02-28 16:00 | disposition home or self-care (01) ==
LOC: CATH 08:03 → MERGE 10:00 → EDSTATUS 10:00 → SDC 13:00 → CATH 16:00
PROVIDERS: ATTEND Internal Medicine Cardiovascular Disease
DX: I25.118 Atherosclerotic heart disease of native coronary artery with other forms of angina pectoris (principal); E66.01 Morbid (severe) obesity due to excess calories; R22.43 Localized swelling, mass and lump, lower limb, bilateral; I10 Essential (primary) hypertension; I27.20 Pulmonary hypertension, unspecified; E78.5 Hyperlipidemia, unspecified; G40.909 Epilepsy, unspecified, not intractable, without status epilepticus; J44.9 Chronic obstructive pulmonary disease, unspecified; M41.9 Scoliosis, unspecified; G47.33 Obstructive sleep apnea (adult) (pediatric); E78.2 Mixed hyperlipidemia; F41.9 Anxiety disorder, unspecified; F32.A Depression, unspecified; F17.210 Nicotine dependence, cigarettes, uncomplicated; Z28.310 Unvaccinated for COVID-19; Z68.43 Body mass index [BMI] 50.0-59.9, adult
CPT/HCPCS: 80053; 80061; 85027; 85610; 85730; 87081; 93005; 93458; 93571; C1769 ×2; C1887; C1894; 36415

== ENCOUNTER → 2023-03-03 | Outpatient (CLI) | payer MEDICAID ==
[~2023-03-03] MED LIST changes: +AMLO2.5T4 PO; +ASPI-999 PO; +ATOR40TA70 PO; +BUSP30TA2 PO; +CARI1.5C PO; +CLOP75TA28 PO; +FERR325T24 PO; +FLUT1BLS13 INH; +HYDR50TA76 PO; +NYST1000 PO; +POTA-179 PO; +PREG200C29 PO; +RANO10005 PO; +TIOT18CA7 INH
[2023-03-03 11:30] LABS: CALCIUM 9.3 MG/DL (8.5-10.1); POTASSIUM 3.7 MMOL/L (3.6-5.0)
[2023-03-03 11:35] LABS: CREATININE SERUM 0.69 MG/DL (0.60-1.30)
== END ==
LOC: LAB FS 11:06
PROVIDERS: ATTEND Nurse Practitioner Family
DX: I50.9 Heart failure, unspecified (principal)
CPT/HCPCS: 36415; 80048; 83880

== ENCOUNTER 2023-03-05 13:48 | Emergency (ER) | payer MEDICAID ==
[~2023-03-05] VITALS: Ht 152 cm; Wt 119.0 kg
[~2023-03-05 13:48] MED LIST changes: -NYST1000 PO
[2023-03-05] MEDS ORDERED: RT-Ipratropium/Albuterol NEB 3 ML VIAL INH STA (14:02)
[2023-03-05 14:06] LABS: BASOPHILS % (AUTO) 0 % (0-10); EOSINOPHILS % (AUTO) 0 % (0-10); HEMATOCRIT 35 % (35-52); HEMOGLOBIN 11.4 g/dL (11.5-16.0); LYMPHOCYTES # (AUTO) 1.6 10^3/uL (1.0-4.0); LYMPHOCYTES % (AUTO) 11 % (12-44); MEAN CORPUSCULAR HEMOGLOBIN 30 pg (25-34); MEAN CORPUSCULAR HGB CONC 33 g/dL (32-36); MEAN CORPUSCULAR VOLUME 92 fL (80-99); MEAN PLATELET VOLUME 9.2 fL (9.0-12.2); MONOCYTES # (AUTO) 0.3 10^3/uL (0.0-1.0); MONOCYTES % (AUTO) 2 % (0-12); NEUTROPHILS # (AUTO) 12.5 10^3/uL (1.8-7.8); NEUTROPHILS % (AUTO) 86 % (42-75); PLATELET COUNT 508 10^3/uL (130-400); WHITE BLOOD COUNT 14.7 10^3/uL (4.3-11.0)
--- NOTE | 2023-03-05 14:11 | ED Chest Pain ---
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 Gary.), mother History of Present Illness Date Seen by Provider: Mar 05, 2023 Time Seen by Provider: 13:51 Initial Comments 42-year-old female presenting with complaints of chest pressure and shortness of breath since 10 AM. She states that she had a heart cath done on the with Dr. Gary and they were doing medical management. She had a chest x-ray done after that and the clinic told her that she had fluid around her heart and inflammation in her lungs. They started her on Augmentin, prednisone, Lasix and potassium. She denied having fever or chills. She did try nitroglycerin at home x2 without any improvement in her chest pressure. She was recently started on home supplemental oxygen at 2 L/min. Timing/Duration: 4-6 hours Severity/Quality: moderate, pressure, tightness Location: substernal Radiation: no radiation Activities at Onset: none Prior CP/Workup: non-cardiac, cardiac cath (02/28 she had 40% blockage in LAD and minimal atherosclerosis in other vessels. Medical management recommendation.), echocardiography ASA po EDUCATIONAL MANAGER: Yes NTG SL EDUCATIONAL MANAGER: Yes Associated Symptoms: No abdominal pain, No back pain, No diaphoresis, No di zziness, No edema, No fatigue, No fever/chills, No headache, No heartburn, No nausea/vomiting, No rash; shortness of breath; No swelling/lump in chest, No syncope, No weakness Allergies and Home Medications Allergies Coded Allergies: gabapentin (Verified Allergy, Unknown, 01/25/19) metoclopramide (Unverified Allergy, Unknown, "CAUSES PT TO LOSE CONTROL OF MUSCLES", 01/25/19) Patient Home Medication List Home Medication List Reviewed: Yes Albuterol Sulfate (Albuterol Sulfate) 2.5 Mg/3 Ml (0.083 %) Vial.neb, 2.5 MG INH Q6H PRN for SHORTNESS OF BREATH, (Reported) Entered as Reported by: PRASANNA RAIN on 02/28/23923 Amlodipine Besylate (Amlodipine Besylate) 2.5 Mg Tablet, 2.5 MG PO DAILY, (Reported) Entered as Reported by: PRASANNA RAIN on 02/28/23923 Aspirin (Aspirin EC) 81 Mg Tablet.dr, 81 MG PO DAILY, (Reported) Entered as Reported by: DC CANSECO on 11/04/21 0835 Aspirin (Aspirin) 81 Mg Tab.chew, 81 MG PO DAILY Prescribed by: PITER GARY on 02/28/23 1300 Atenolol (Atenolol) 50 Mg Tablet, 50 MG PO BID, (Reported) Entered as Reported by: DC CANSECO on 11/04/21 0835 Atorvastatin Calcium (Atorvastatin Calcium) 40 Mg Tablet, 40 MG PO DAILY, (Reported) Entered as Reported by: PRASANNA RAIN on 02/28/23 09 Buspirone HCl (Buspirone HCl) 30 Mg Tablet, 30 MG PO BID, (Reported) Entered as Reported by: PRASANNA RAIN on 02/28/23 09 Cariprazine Hydrochloride (Vraylar) 1.5 Mg Capsule, 1.5 MG PO DAILY, (Reported) Entered as Reported by: PRASANNA RAIN on 02/28/23 0929 Clopidogrel Bisulfate (Clopidogrel) 75 Mg Tablet, 75 MG PO DAILY, (Reported) Entered as Reported by: PRASANNA RAIN on 02/28/23 0924 Diphenhydramine HCl (Benadryl Allergy) 25 Mg Tablet, 25 MG PO DAILY PRN for ALLERGIES, (Reported) Entered as Reported by: KEILY JONES on 12/28/21 1045 Estradiol (Estradiol Tablet) 1 Mg Tablet, 1 MG PO DAILY, (Reported) Entered as Reported by: MADDY DANIELLE on 05/20/19 1327 Ethosuximide (Ethosuximide) 250 Mg Capsule, 250 MG PO HS, (Reported) Entered as Reported by: MADDY DANIELLE on 04/12/16 0942 Ferrous Sulfate (Ferosul) 325 Mg (65 Mg Iron) Tablet, 325 MG PO DAILY, (Reported) Entered as Reported by: PRASANNA RAIN on 02/28/23 09 Fluoxetine HCl (Fluoxetine HCl) 40 Mg Capsule, 80 MG PO DAILY, (Reported) Entered as Reported by: LILIBETH DOUGLAS on 01/26/19 0349 Fluticasone Propion/Salmeterol (Fluticasone-Salmeterol 500-50) 500 Mcg-50 Mcg/Dose Blst.w.dev, 1 PUFF INH BID, (Reported) Entered as Reported by: PRASANNA RAIN on 02/28/23923 Hydroxyzine HCl (Hydroxyzine HCl) 50 Mg Tablet, 50 MG PO Q8H PRN for ANXIETY, (Reported) Entered as Reported by: PRASANNA RAIN on 02/28/23923 Isosorbide Mononitrate (Isosorbide Mononitrate ER) 60 Mg Tab, 60 MG PO DAILY, (Reported) Entered as Reported by: KEILY JONES on 12/28/21 104 Lidocaine (Lidocaine 5% Patch) 5 % Adh..patch, 1 EACH TP Q12H PRN for Neuropat hic pain, (Reported) Entered as Reported by: PRASANNA RAIN on 02/28/23923 Metaxalone (Metaxalone) 800 Mg Tablet, 800 MG PO TID PRN for FLUID RETENTION, (Reported) Entered as Reported by: CARMELO CLAUDIO on 12/30/22 0306 Nitroglycerin (Nitroglycerin) 0.4 Mg Tab.subl, 0.4 MG SL UD PRN for CHEST PAIN, (Reported) Entered as Reported by: KEILY JONES on 12/28/21 104 Ondansetron (Ondansetron Odt) 4 Mg Tab.rapdis, 4 MG PO Q8H PRN for NAUSEA/VOMITING-1ST LINE, (Reported) Entered as Reported by: PRASANNA RAIN on 02/28/23923 Pantoprazole Sodium (Pantoprazole Sodium) 40 Mg Tablet.dr, 40 MG PO BID, (Reported) Entered as Reported by: PRASANNA RAIN on 02/28/23923 Potassium Chloride (Potassium Chloride) 20 Meq Tab.er.prt, 20 MEQ PO DAILY, (Reported) Entered as Reported by: PRASANNA RAIN on 02/28/23923 Pregabalin (Pregabalin) 200 Mg Capsule, 200 MG PO TID, (Reported) Entered as Reported by: PRASANNA RAIN on 02/28/23923 Ranolazine (Ranolazine ER) 1,000 Mg Tab.er.12h, 1,000 MG PO BID, (Reported) Entered as Reported by: PRASANNA RAIN on 02/28/23923 Tiotropium Hibernia (Tiotropium Hibernia) 18 Mcg Cap.w.dev, 1 PUFF INH DAILY, (Reported) Entered as Reported by: PRASANNA RAIN on 02/28/23 0924 Discontinued Medications Acetaminophen (Tylenol Extra Strength) 500 Mg Tablet, 1,000 MG PO Q8H PRN for PAIN-MILD (1-4), (Reported) Discontinued Reason: No Longer Taking Entered as Reported by: KEILY JONES on 12/28/21 1045 Albuterol Sulfate (Albuterol Sulfate) 2.5 Mg/3 Ml (0.083 %) Vial.neb, 2.5 MG INH Q4H PRN for WHEEZING Discontinued Reason: Duplicate Order Prescribed by: LEIGH ANGEL on 02/07/23 0006 Atorvastatin Calcium (Atorvastatin Calcium) 10 Mg Tablet, 10 MG PO HS, (Reported) Discontinued Reason: No Longer Taking Entered as Reported by: DC CANSECO on 11/04/21 0835 Buspirone HCl (Buspirone HCl) 15 Mg Tablet, 15 MG PO TID, (Reported) Discontinued Reason: No Longer Taking Entered as Reported by: DC CANSECO on 11/04/21 0835 Cephalexin (Cephalexin) 500 Mg Tablet, 500 MG PO TID Discontinued Reason: No Longer Taking Prescribed by: FADY DOE MD on 03/30/22 2137 Cyclobenzaprine HCl (Cyclobenzaprine HCl) 10 Mg Tablet, 10 MG PO Q8H PRN for SPASMS Discontinued Reason: Duplicate Order Prescribed by: TONY GOFF on 11/18/22 0121 Furosemide (Lasix) 40 Mg Tablet, 40 MG PO in moring Discontinued Reason: Duplicate Order Prescribed by: Nina mcwilliams on 02/05/23 1723 Hydrochlorothiazide (Hydrochlorothiazide) 12.5 Mg Tablet, 12.5 MG PO DAILY, (Reported) Discontinued Reason: Duplicate Order Entered as Reported by: DC CANSECO on 11/04/21 0835 Hydroxyzine HCl (Hydroxyzine HCl) 25 Mg Tablet, 25 MG PO TID PRN for ANXIETY, (Reported) Discontinued Reason: Duplicate Order Entered as Reported by: DC CANSECO on 11/04/21 0835 Ibuprofen (Ibuprofen) 600 Mg Tablet, 600 MG PO Q6H PRN for PAIN-MILD Discontinued Reason: Duplicate Order Prescribed by: TONY GOFF on 10/04/222201 Lidocaine (Lidocaine 5% Patch) 5 % Adh..patch, 1 EACH TP Q12H PRN for Neuropath ic pain Discontinued Reason: Duplicate Order Prescribed by: TONY GOFF on 10/04/222201 Lidocaine (Lidocaine 5% Patch) 5 % Adh..patch, 1 EACH TP Q12H PRN for Neuropathic pain Discontinued Reason: Duplicate Order Prescribed by: TONY GOFF on 12/29/22 2321 Lisinopril (Lisinopril) 20 Mg Tablet, 20 MG PO BID, (Reported) Discontinued Reason: Duplicate Order Entered as Reported by: MADDY DANIELLE on 05/20/19 1324 Pantoprazole Sodium (Pantoprazole Sodium) 40 Mg Tablet.dr, 40 MG PO BID Discontinued Reason: Duplicate Order Prescribed by: RAHEEM LI JR, MD on 12/29/21 1221 Potassium Chloride (Potassium Chloride) 20 Meq Tablet.er, 20 MEQ PO DAILY Discontinued Reason: Duplicate Order Prescribed by: TONY GOFF on 01/24/23 1847 Prednisone (Prednisone) 20 Mg Tab, 40 MG PO DAILY Discontinued Reason: Duplicate Order Prescribed by: LEIGH ANGEL on 02/07/23 0006 Pregabalin (Pregabalin) 150 Mg Capsule, 150 MG PO TID, (Reported) Discontinued Reason: Duplicate Order Entered as Reported by: DC CANSECO on 11/04/21 0835 Promethazine HCl (Promethazine Suppository) 25 Mg Supp.rect, 25 MG RC Q6H PRN for NAUSEA/VOMITING-2ND LINE Discontinued Reason: Duplicate Order Prescribed by: TONY GOFF on 05/03/22 1028 Promethazine HCl (Promethazine Tablet) 25 Mg Tablet, 25 MG PO Q6H PRN for NAUSEA/VOMITING Discontinued Reason: Duplicate Order Prescribed by: TONY GOFF on 12/13/22 0015 Promethazine HCl (Promethazine Suppository) 25 Mg Supp.rect, 25 MG RC Q8H PRN for NAUSEA/VOMITING-2ND LINE Discontinued Reason: Duplicate Order Prescribed by: TONY GOFF on 01/21/23 2313 Ranolazine (Ranexa) 500 Mg Tab.er.12h, 1,000 MG PO BID Discontinued Reason: Duplicate Order Prescribed by: RAHEEM LI JR, MD on 12/29/21 1221 Tizanidine HCl (Tizanidine HCl) 4 Mg Tablet, 4 MG PO TID PRN for MUSCLE SPASMS, (Reported) Discontinued Reason: Duplicate Order Entered as Reported by: KEILY JONES on 12/28/21 1042 Review of Systems Review of Systems Constitutional: No chills, No fever EENTM: No Symptoms Reported Respiratory: See HPI Cardiovascular: See HPI Gastrointestinal: No Symptoms Reported Genitourinary: No Symptoms Reported Musculoskeletal: no symptoms reported Skin: no symptoms reported Psychiatric/Neurological: Anxiety Past Cnakfic-Regafo-Wjqaqb Hx Patient Social History Tobacco Use?: Yes Tobacco type used: Cigarettes Smoking Status: Current Everyday Smoker Use of E-Cig and/or Vaping dev: No Substance use?: No Alcohol Use?: No Pt feels they are or have been: No Immunizations Up To Date Tetanus Booster (TDap): Unknown First/Initial COVID19 Vaccinat: unk Second COVID19 Vaccination Suhas: unk Third COVID19 Vaccination Date: unk Seasonal Allergies Seasonal Allergies: Yes Past Medical History Surgery/Hospitalization HX: Angina Surgeries: Yes (dental extractions, dxls, bmt, 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, LEFT EAR) Section, Ear Surgery, Gallbladder, Hysterectomy, Orthopedic, 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 Respiratory: Yes Asthma, Sleep Apnea, COPD Currently Using CPAP: Yes Currently Using BIPAP: No Cardiac: Yes Coronary Artery Disease, Heart Murmur, Hypertension, Irregular Heartbeat Neurological: Yes Headaches /Migraines, Seizure Disorder 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 Disorders: Yes Female 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 Disorders: 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, 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 Sexually Transmitted Disease: No Genitourinary: Yes Kidney Stones Gastrointestinal: Yes Colitis, Gastroesophageal Reflux, Diverticulosis, Hemorrhoids, Polyps, Hiatal Hernia, Ulcer Musculoskeletal: Yes (spina bifida) Arthritis, Scoliosis, Chronic Back Pain Endocrine: No HEENT: Yes Chronic Ear Infection Hearing Impairment: Denies, Hard of Hearing Cancer: No Psychosocial: Yes Anxiety, Depression Integumentary: No Blood Disorders: No Family Medical History No Pertinent Family Hx Physical Exam Vital Signs Vital Signs - First Documented 03/05/23 03/05/23 13:54 14:00 Temp 36.4 Pulse 73 Resp 16 B/P (MAP) 119/55 (76) Pulse Ox 95 O2 Delivery Room Air O2 Flow Rate 2.00 Capillary Refill : Less Than 3 Seconds Height, Weight, BMI Height: 5'0" Weight: 235lbs. 0oz. [id number]; 51.93 BMI Method:Stated General Appearance: No Apparent Distress, Obese HEENT: PERRL/EOMI, Pharynx Normal Respiratory: Chest Non Tender, Lungs Clear, Normal Breath Sounds, No Accessory Muscle Use, No Respiratory Distress Cardiovascular: Regular Rate, Rhythm, Normal Peripheral Pulses Gastrointestinal: Normal Bowel Sounds, No Pulsatile Mass, Non Tender, Soft Extremity: Normal Capillary Refill, Normal Inspection, No Pedal Edema Neurologic/Psychiatric: Alert, Oriented x3 Skin: Normal Color, Warm/Dry Progress/Results/Core Measures Results/Orders Lab Results Laboratory Tests Test 03/05/23 14:00 Range/Units White Blood Count 14.7 H 4.3-11.0 10^3/uL Red Blood Count 3.81 3.80-5.11 10^6/uL Hemoglobin 11.4 L 11.5-16.0 g/dL Hematocrit 35 35-52 % Mean Corpuscular Volume 92 80-99 fL Mean Corpuscular Hemoglobin 30 25-34 pg Mean Corpuscular Hemoglobin Concent 33 32-36 g/dL Red Cell Distribution Width 15.5 H 10.0-14.5 % Platelet Count 508 H 130-400 10^3/uL Mean Platelet Volume 9.2 9.0-12.2 fL Immature Granulocyte % (Auto) 1 % Neutrophils (%) (Auto) 86 H 42-75 % Lymphocytes (%) (Auto) 11 L 12-44 % Monocytes (%) (Auto) 2 0-12 % Eosinophils (%) (Auto) 0 0-10 % Basophils (%) (Auto) 0 0-10 % Neutrophils # (Auto) 12.5 H 1.8-7.8 10^3/uL Lymphocytes # (Auto) 1.6 1.0-4.0 10^3/uL Monocytes # (Auto) 0.3 0.0-1.0 10^3/uL Eosinophils # (Auto) 0.0 0.0-0.3 10^3/uL Basophils # (Auto) 0.0 0.0-0.1 10^3/uL Immature Granulocyte # (Auto) 0.2 H 0.0-0.1 10^3/uL Neutrophils % (Manual) 81 % Lymphocytes % (Manual) 17 % Monocytes % (Manual) 2 % Prothrombin Time 12.5 12.2-14.7 SEC INR Comment 0.9 0.8-1.4 Activated Partial Thromboplast Time 23 L 24-35 SEC Sodium Level 140 135-145 MMOL/L Potassium Level 3.9 3.6-5.0 MMOL/L Chloride Level 103 98-107 MMOL/L Carbon Dioxide Level 26 21-32 MMOL/L Anion Gap 11 5-14 MMOL/L Blood Urea Nitrogen 12 7-18 MG/DL Creatinine 0.87 0.60-1.30 MG/DL Estimat Glomerular Filtration Rate 85 BUN/Creatinine Ratio 14 Glucose Level 170 H 70-105 MG/DL Calcium Level 9.2 8.5-10.1 MG/DL Corrected Calcium 9.0 8.5-10.1 MG/DL Magnesium Level 1.7 1.6-2.4 MG/DL Total Bilirubin 0.2 0.1-1.0 MG/DL Aspartate Amino Transf (AST/SGOT) 22 5-34 U/L Alanine Aminotransferase (ALT/SGPT) 10 0-55 U/L Alkaline Phosphatase 105 40-136 U/L Troponin I < 0.30 <0.30 NG/ML Pro-B-Type Natriuretic Peptide 555.0 H <125.0 PG/ML Total Protein 7.4 6.4-8.2 GM/DL Albumin 4.2 3.2-4.5 GM/DL Lipase 18 8-78 U/L My Orders Orders - LEIGH ANGEL MD Cbc And Automated Diff (03/05/23 14:01) Magnesium (03/05/23 14:01) Chest 1 View Ap/Pa Only (03/05/23 14:01) Ekg Tracing (03/05/23 14:01) Comprehensive Metabolic Panel (03/05/23 14:01) Protime With Inr (03/05/23 14:01) Partial Thromboplastin Time (03/05/23 14:01) O2 (03/05/23 14:01) Monitor-Rhythm Ecg Trace Only (03/05/23 14:01) Ed Iv/Invasive Line Start (03/05/23 14:01) Lipase (03/05/23 14:01) Troponin I Fs (03/05/23 14:01) Probnp Fs (03/05/23 14:01) Ipratropium/Albuterol Inh Soln (Ipratrop (03/05/23 14:02) Svn Small Volume Nebulizer (03/05/23 14:02) Manual Differential (03/05/23 14:00) Fentanyl Injection (Fentanyl Injection (03/05/23 15:04) Dexamethasone Injection (Dexamethasone (03/05/23 15:04) Lidocaine 2% Viscous 15 Ml (Xylocaine Vi (03/05/23 15:15) Antacid Suspension (Antacid Suspension (03/05/23 15:15) Medications Given in ED Current Medications Medications Dose Ordered Sig/Brissa Route Start Time Stop Time Status Last Admin Dose Admin Al Hydrox/Mg Hydrox/Simethicone 30 ml ONCE ONCE PO 03/05/23 15:15 03/05/23 15:16 DC 03/05/23 15:10 30 ML Lidocaine HCl 15 ml ONCE ONCE PO 03/05/23 15:15 03/05/23 15:16 DC 03/05/23 15:10 15 ML Vital Signs/I&O 03/05/23 03/05/23 03/05/23 13:54 14:00 15:21 Temp 36.4 36.4 Pulse 73 68 Resp 16 16 B/P (MAP) 119/55 (76) 117/62 Pulse Ox 95 96 97 O2 Delivery Room Air Nasal Cannula Nasal Cannula O2 Flow Rate 2.00 2.00 2.00 Progress Progress Note #1: Progress Note Differential diagnosis chest pain, coronary artery disease, copd, pneumonia, anxiety. Obtain electrocardiogram to look for signs of ischemia. Establish peripheral IV access and send labs for complete blood count, comprehensive metabolic profile, magnesium, coagulation factors, troponin, proBNP. Single view chest x-ray to evaluate her breathing. Ordered a DuoNeb breathing treatment to see if that helps with her shortness of breath and chest tightness. Considering her recent cardiac cath showed less than 40% blockage in 1 vessel and the rest was all minimal blockage this does not seem like it would be contributing to the acute coronary syndrome. Although she reports that she was told she had fluid around her heart on chest x-ray her recent echocardiogram did not show heart failure or signs of heart failure on the heart cath. Review of Cardiac cath from [employer] Dr. Gary done on 02/28/2023 shows no significant blockage or atherosclerosis. She had less than 40% blockage in LAD and minimal plaque in other vessels. Normal ejection fraction. Echocardiogram interpreted by [employer] Dr. Gary on 02/21/2023 shows normal systolic function with EF 60-65% On review of her prior chest xrays she has had mild prominence of heart with cardiomegaly on multiple prior chest xrays. Progress Note #2: Progress Note Reviewed with the patient that her labs have all looked okay here especially in regards to her heart. She had a mild elevation of her white blood cell count which is a chronic condition. Her hemoglobin is low normal which also was chronic. Her comprehensive metabolic profile did not show any acute electrolyte abnormalities. Her troponin was negative. Especially with having pain starting at 10 AM if she was having acute coronary syndrome or myocardial infarction I would expect that the troponin should have started to be elevated by now. Her proBNP was down to 555 whereas previously had been over 1300. Reassured patient that from heart standpoint things look good. She was still tearful at times stating that she had pain. She was pressing on her chest and it was causing pain to the right lower ribs. She said that this pain seemed to worsen after she ate lunch. Advised that there could be an ulcer or gastric source for some of her pain as well. We will give a GI cocktail along with a steroid dose of dexamethasone 10 mg IV to try and help with pain and inflammation. She is already taking oral prednisone. Will give a single dose of fentanyl 50 mcg IV to try and help with pain as well. Encouraged to follow-up with the clinic for continued concerns. Initial ECG Impression Date: Mar 05, 2023 Initial ECG Impression Time: 13:53 Initial ECG Rate: 74 Initial ECG Rhythm: Normal Sinus Initial ECG Comparisson: Unchanged (02/26/2023) Comment Electrocardiogram shows sinus rhythm with a heart rate of 74 bpm. TX interval [address] elevation. Low QRS voltage in the precordial leads. QT interval 404 ms with a QTc interval 431 ms. She has no acute significant change from her prior tracing February 26, 2023. Diagnostic Imaging Diagonstic Imaging: Xray Plain Films/CT/US/NM/MRI: chest Comments [facility] [place], [place] NAME: JUVENTINO BEAN [facility] REC#: [id number] PT STATUS: REG ER : 1980 PHYSICIAN: LEIGH ANGEL MD ADMIT DATE: 03/05/23/ER FS Signed Date of Exam:03/05/23 CHEST 1 VIEW AP/PA ONLY EXAMINATION: Chest 1 view HISTORY: Chest pressure. Shortness of breath. COMPARISON: 02/26/2023. FINDINGS: The lung volumes are normal. No focal consolidation is seen. No large pleural effusion or pneumothorax is seen. The cardiomediastinal silhouette is normal in size and contour. No acute osseous abnormality is seen. IMPRESSION: 1. No acute pleuroparenchymal process. Dictated by: Dictated on workstation # [id number] Dict: 03/05/231416 Trans: 03/05/231425 CV [id number] Interpreted by: NAWAF BURGESS DO Electronically signed by: NAWAF BURGESS DO 03/05/236 Reviewed: Reviewed by Me Departure Impression Primary Impression: Atypical chest pain Additional Impression: Shortness of breath Disposition: HOME, SELF-CARE Condition: Stable Departure-Patient Inst. Decision time for Depature: 15:11 Referrals: MAYKEL CUMMINS APRN (PCP) Primary Care Physician [facility] (Family) Primary Care Physician Patient Instructions: Shortness of Breath, Adult ED, Chest Pain, Adult ED Add. Discharge Instructions: Your tests to look at the heart all look ok. No sign of heart attack or heart damage. Your chest xray is not showing fluid around your heart or pneumonia. The pain could be from an ulcer or stomach pain, rib or chest wall pain, lung inflammation. Check back with clinic for continued concerns. All discharge instructions reviewed with patient and/or family. Voiced understanding. LEIGH ANGEL MD Mar 05, 2023 14:11
[2023-03-05 14:12] LABS: BILIRUBIN,TOTAL 0.2 MG/DL (0.1-1.0); CALCIUM 9.2 MG/DL (8.5-10.1); CHLORIDE 103 MMOL/L (98-107); INR 0.9 (0.8-1.4); MAGNESIUM 1.7 MG/DL (1.6-2.4); POTASSIUM 3.9 MMOL/L (3.6-5.0); PROTHROMBIN TIME PATIENT 12.5 SEC (12.2-14.7); SODIUM 140 MMOL/L (135-145)
--- NOTE | 2023-03-05 14:19 | Diagnostic Imaging Report ---
EXAMINATION: Chest 1 view HISTORY: Chest pressure. Shortness of breath. COMPARISON: 02/26/2023. FINDINGS: The lung volumes are normal. No focal consolidation is seen. No large pleural effusion or pneumothorax is seen. The cardiomediastinal silhouette is normal in size and contour. No acute osseous abnormality is seen. IMPRESSION: 1. No acute pleuroparenchymal process. Dictated by: Dictated on workstation # [id number]
[2023-03-05 14:21] LABS: CARBON DIOXIDE 26 MMOL/L (21-32)
[2023-03-05 14:22] LABS: ALANINE AMINOTRANSFERASE 10 U/L (0-55); ALBUMIN 4.2 GM/DL (3.2-4.5); ALKALINE PHOSPHATASE 105 U/L (40-136); BUN/CREATININE RATIO 14; CREATININE SERUM 0.87 MG/DL (0.60-1.30); GFR ESTIMATED 85; GLUCOSE 170 MG/DL (70-105); LIPASE 18 U/L (8-78); TOTAL PROTEIN 7.4 GM/DL (6.4-8.2)
[2023-03-05 14:33] LABS: LYMPHOCYTES % (MANUAL) 17 %; MONOCYTES % (MANUAL) 2 %; NEUTROPHILS % (MANUAL) 81 %
[2023-03-05] MEDS ORDERED: dexAMETHasone INJ 10 MG/ML 1 ML VIAL IV STA (15:04)
[2023-03-05] MEDS ORDERED: fentaNYL INJECTION 100 MCG/2 ML VIAL IVP STA (15:04)
[2023-03-05] MEDS ORDERED: ANTACID SUSPENSION 30 ML UDC PO ONE (15:15)
[2023-03-05] MEDS ORDERED: LIDOCAINE 2% VISCOUS 15 ML UDC PO ONE (15:15)
[2023-03-05 15:21] VITALS: BP 117/62
== END 2023-03-05 15:22 | disposition home or self-care (01) ==
LOC: EDUNIT# 13:48 → ER FS 13:49
DX: R07.89 Other chest pain (principal); R06.02 Shortness of breath; D72.829 Elevated white blood cell count, unspecified; E66.9 Obesity, unspecified; G47.30 Sleep apnea, unspecified; F17.210 Nicotine dependence, cigarettes, uncomplicated; Z68.43 Body mass index [BMI] 50.0-59.9, adult; Z99.89 Dependence on other enabling machines and devices
CPT/HCPCS: 36415; 71045; 80053; 83690; 83735; 83880; 84484; 85007; 85027; 85610; 85730; 93005; 93041; 96374; 96375

== ENCOUNTER 2023-03-08 22:30 | Emergency (ER) | payer MEDICAID ==
--- NOTE | 2023-03-08 22:36 | ED Cardiac General ---
History of Present Illness General Stated Complaint: HEART PALPITATIONS Source: patient History of Present Illness Date Seen by Provider: Mar 08, 2023 Time Seen by Provider: 22:33 Initial Comments 42-year-old female presenting with complaints of feeling like her heart was palpating starting approximately 1 hour prior to arrival in the ED. She states that she was having some nausea with this and intermittent right sided sharp pains. 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 Her low back was hurting today as well. She was feeling lightheaded and dizzy at times. Timing/Duration: 1 hour Severity: moderate NTG SL GUT SNATCHER: No ASA po GUT SNATCHER: No Associated Systoms: No Chest Pain, No Cough, No Diaphoresis, No Fever/Chills, No Headaches, No Loss of Appetite; Malaise, Nausea/Vomiting; No Rash, No Seizu re, No Shortness of Air, No Syncope; Weakness Allergies and Home Medications Allergies Coded Allergies: gabapentin (Verified Allergy, Unknown, 01/25/19) metoclopramide (Unverified Allergy, Unknown, "CAUSES PT TO LOSE CONTROL OF MUSCLES", 01/25/19) Patient Home Medication List Home Medication List Reviewed: Yes Albuterol Sulfate (Albuterol Sulfate) 2.5 Mg/3 Ml (0.083 %) Vial.neb, 2.5 MG INH Q6H PRN for SHORTNESS OF BREATH, (Reported) Entered as Reported by: PRASANNA RAIN on 02/28/23923 Amlodipine Besylate (Amlodipine Besylate) 2.5 Mg Tablet, 2.5 MG PO DAILY, (Reported) Entered as Reported by: PRASANNA RAIN on 02/28/23923 Aspirin (Aspirin EC) 81 Mg Tablet.dr, 81 MG PO DAILY, (Reported) Entered as Reported by: DC CANSECO on 11/04/21 0835 Aspirin (Aspirin) 81 Mg Tab.chew, 81 MG PO DAILY Prescribed by: PITER TRACY on 02/28/23 1300 Atenolol (Atenolol) 50 Mg Tablet, 50 MG PO BID, (Reported) Entered as Reported by: DC CANSECO on 11/04/21 0835 Atorvastatin Calcium (Atorvastatin Calcium) 40 Mg Tablet, 40 MG PO DAILY, (Reported) Entered as Reported by: PRASANNA RAIN on 02/28/23923 Buspirone HCl (Buspirone HCl) 30 Mg Tablet, 30 MG PO BID, (Reported) Entered as Reported by: PRASANNA RAIN on 02/28/23923 Cariprazine Hydrochloride (Vraylar) 1.5 Mg Capsule, 1.5 MG PO DAILY, (Reported) Entered as Reported by: PRASANNA RAIN on 02/28/23 09 Clopidogrel Bisulfate (Clopidogrel) 75 Mg Tablet, 75 MG PO DAILY, (Reported) Entered as Reported by: PRASANNA RAIN on 02/28/23923 Diphenhydramine HCl (Benadryl Allergy) 25 Mg Tablet, 25 MG PO DAILY PRN for ALLERGIES, (Reported) Entered as Reported by: KEILY JONES on 12/28/21 104 Estradiol (Estradiol Tablet) 1 Mg Tablet, 1 MG PO DAILY, (Reported) Entered as Reported by: MADDY DANIELLE on 05/20/19 1327 Ethosuximide (Ethosuximide) 250 Mg Capsule, 250 MG PO HS, (Reported) Entered as Reported by: MADDY DANIELLE on 04/12/16 0942 Ferrous Sulfate (Ferosul) 325 Mg (65 Mg Iron) Tablet, 325 MG PO DAILY, (Reported) Entered as Reported by: PRASANNA RAIN on 02/28/23923 Fluoxetine HCl (Fluoxetine HCl) 40 Mg Capsule, 80 MG PO DAILY, (Reported) Entered as Reported by: LILIBETH DOUGLAS on 01/26/19 0349 Fluticasone Propion/Salmeterol (Fluticasone-Salmeterol 500-50) 500 Mcg-50 Mcg/Dose Blst.w.dev, 1 PUFF INH BID, (Reported) Entered as Reported by: PRASANNA RAIN on 02/28/23923 Hydroxyzine HCl (Hydroxyzine HCl) 50 Mg Tablet, 50 MG PO Q8H PRN for ANXIETY, (Reported) Entered as Reported by: PRASANNA RAIN on 02/28/23923 Isosorbide Mononitrate (Isosorbide Mononitrate ER) 60 Mg Tab, 60 MG PO DAILY, (Reported) Entered as Reported by: KEILY JONES on 12/28/21 1042 Lidocaine (Lidocaine 5% Patch) 5 % Adh..patch, 1 EACH TP Q12H PRN for Neuropathi c pain, (Reported) Entered as Reported by: PRASANNA RAIN on 02/28/23923 Metaxalone (Metaxalone) 800 Mg Tablet, 800 MG PO TID PRN for FLUID RETENTION, (Reported) Entered as Reported by: CARMELO CLAUDIO on 12/30/22 0306 Nitroglycerin (Nitroglycerin) 0.4 Mg Tab.subl, 0.4 MG SL UD PRN for CHEST PAIN, (Reported) Entered as Reported by: KEILY JONES on 12/28/21 1042 Nystatin (Nystatin) 100,000 Unit/Ml Oral.susp, 500,000 UNIT PO QID Prescribed by: LEIGH ANGEL on 03/09/23 0126 Ondansetron (Ondansetron Odt) 4 Mg Tab.rapdis, 4 MG PO Q8H PRN for NAUSEA/VOMITING-1ST LINE, (Reported) Entered as Reported by: PRASANNA RAIN on 02/28/23923 Pantoprazole Sodium (Pantoprazole Sodium) 40 Mg Tablet.dr, 40 MG PO BID, (Reported) Entered as Reported by: PRASANNA RAIN on 02/28/23923 Potassium Chloride (Potassium Chloride) 20 Meq Tab.er.prt, 20 MEQ PO DAILY, (Reported) Entered as Reported by: PRASANNA RAIN on 02/28/23923 Pregabalin (Pregabalin) 200 Mg Capsule, 200 MG PO TID, (Reported) Entered as Reported by: PRASANNA RAIN on 02/28/23923 Ranolazine (Ranolazine ER) 1,000 Mg Tab.er.12h, 1,000 MG PO BID, (Reported) Entered as Reported by: PRASANNA RAIN on 02/28/23923 Tiotropium Richardson (Tiotropium Richardson) 18 Mcg Cap.w.dev, 1 PUFF INH DAILY, (Reported) Entered as Reported by: PRASANNA RAIN on 02/28/23923 Review of Systems Review of Systems Constitutional: No chills; dizziness; No fever; malaise, weakness EENTM: Mouth Pain (Tongue pain and white plaques on her tongue consistent with thrush) Respiratory: Denies Cough Cardiovascular: See HPI, Lightheadedness, Palpitations Gastrointestinal: Nausea; Denies Vomiting Genitourinary: Denies Flank Pain Musculoskeletal: no symptoms reported Skin: no symptoms reported Psychiatric/Neurological: Anxiety Past Hnshljs-Jffirl-Ybgaaz Hx Immunizations Up To Date Tetanus Booster (TDap): Unknown First/Initial COVID19 Vaccinat: unk Second COVID19 Vaccination Suhas: unk Third COVID19 Vaccination Date: unk Seasonal Allergies Seasonal Allergies: Yes Past Medical History Surgery/Hospitalization HX: Angina Surgeries: Yes (dental extractions, dxls, bmt, 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, LEFT EAR) Section, Ear Surgery, Gallbladder, Hysterectomy, Orthopedic, 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 Respiratory: Yes Asthma, Sleep Apnea, COPD Currently Using CPAP: Yes Currently Using BIPAP: No Cardiac: Yes Coronary Artery Disease, Heart Murmur, Hypertension, Irregular Heartbeat Neurological: Yes Headaches /Migraines, Seizure Disorder 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 Disorders: Yes Female 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 Disorders: 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 0oz. [id number]; 51.00 BMI Method:Stated General Appearance: No Apparent Distress, Obese HEENT: Other (White plaques on her tongue consistent with oral thrush) Respiratory: Chest Non Tender, Lungs Clear, Normal Breath Sounds Cardiovascular: Regular Rate, Rhythm, Normal Peripheral Pulses, Extra Beats Gastrointestinal: Normal Bowel Sounds, No Pulsatile Mass, Non Tender, Soft Rectal: Deferred Extremity: Normal Capillary Refill, Pedal Edema (Trace bilateral pedal edema) Neurologic/Psychiatric: Alert, Oriented x3 Skin: Normal Color, Warm/Dry Progress/Results/Core Measures Results/Orders My Orders Orders - LEIGH ANGEL MD Cbc And Automated Diff (03/08/23 22:34) Magnesium (03/08/23 22:34) Chest 1 View Ap/Pa Only (03/08/23 22:34) Ekg Tracing (03/08/23 22:34) Comprehensive Metabolic Panel (03/08/23 22:34) Protime With Inr (03/08/23:34) Partial Thromboplastin Time (03/08/23 22:34) O2 (03/08/23 22:34) Monitor-Rhythm Ecg Trace Only (03/08/23 22:34) Ed Iv/Invasive Line Start (03/08/23:34) Lipase (03/08/23 22:34) Troponin I Fs (03/08/23 22:34) Probnp Fs (03/08/23 22:34) Ua Culture If Indicated (03/08/23 22:34) Ondansetron Injection (Ondansetron Inj (03/08/23 22:56) Ketorolac Injection (Ketorolac Injection (03/08/23 22:56) Fentanyl Injection (Fentanyl Injection (03/09/23 00:22) Prochlorperazine Injection (Prochlorpera (03/09/23 00:22) Diphenhydramine Injection (Diphenhydram (03/09/23 00:22) Nystatin Oral Suspension (Nystatin Ora (03/09/23 00:22) Prochlorperazine Injection (Prochlorpera (03/09/23 01:42) Diphenhydramine Injection (Diphenhydram (03/09/23 01:42) Fentanyl Injection (Fentanyl Injection (03/09/23 01:42) Progress Progress Note #1: Progress Note Differential diagnosis includes palpitations, electrolyte imbalance, UTI, pneumonia, dehydration. Establish peripheral IV access and send labs for complete blood count, comprehensive metabolic profile, magnesium, lipase, troponin, proBNP. Obtain 1 view chest x-ray to look for acute pathology. Electrocardiogram to evaluate heart rate and rhythm and look for ischemia. Placed on cardiac gambling monitor and watch for cardiac arrhythmia. Administer Zofran 4 mg IV for nausea and vomiting and 15 mg of Toradol IV to help with pain. Progress Note #2: Progress Note Patient's electrocardiogram did not show any acute significant change from prior tracings. Her labs showed no pathology with her coagulation factors. Her complete blood count showed an elevated white blood cell count consistent with her taking steroids. She has a white blood cell count of 21.5. Hemoglobin with mild anemia at 10.9. Comprehensive metabolic profile showed hypokalemia with potassium at 3.1. Magnesium ok at 1.8. Negative troponinat <0.3. I did not appreciate any acute infiltrate on her 1 view chest x-ray. When reviewing results with the patient she was also advised that her urinalysis did not show signs of infection. She was likely having side effects of the steroid in addition to having oral thrush. She is being tapered off of the steroids so that should help with her symptoms. In the meantime she was still having some nausea so Compazine 10 mg IV along with Benadryl 25 mg IV were administered. A single dose of fentanyl 50 mcg IV was administered for intermittent sharp right- sided chest pain. Advised to check back with her primary care provider for continued concerns. She may also need to see her hitcher for palpitations and evaluation. Take nystatin 5 mL 4 times a day and continue until thrush symptoms have resolved for 48 hours Initial ECG Impression Date: Mar 08, 2023 Initial ECG Impression Time: 22:50 Initial ECG Rate: 70 Initial ECG Rhythm: Normal Sinus, PVC Initial ECG Comparisson: Unchanged (03/05/2023) Comment My initial interpretation and review of the electrocardiogram shows a sinus rhythm with sinus arrhythmia. Heart rate is 70 bpm. ND interval [address] elevation. QT interval 406 ms with a QTc interval 427 ms. There is an incomplete right bundle branch block. Low QRS voltage in the precordial leads. Overall appears similar to tracing from 03/05/2023 Diagnostic Imaging Diagonstic Imaging: Xray Plain Films/CT/US/NM/MRI: chest Comments My personal interpretation and review of the 1 view chest x-ray I did not appreciate any acute infiltrate. Reviewed: Reviewed by Me Departure Impression Primary Impression: Palpitations Additional Impression: Oral thrush Disposition: 01 HOME, SELF-CARE Condition: Stable Departure-Patient Inst. Decision time for Depature: 23:58 Referrals: MAYKEL CUMMINS APRN (PCP) Primary Care Physician [facility]/JENNIFER (Family) Primary Care Physician Patient Instructions: Palpitations ED, Thrush (DC) Add. Discharge Instructions: The steroid you are taking as well as the oral thrush could be contributing to the not feeling well. Your electrolytes and cardiac labs continue to look okay. I did not appreciate any new acute changes with your chest x-ray. Take the nystatin to treat for the oral thrush. Check back with your primary doctor and hitcher for continued concerns. Scripts Nystatin (Nystatin) 100,000 Unit/Ml Oral.susp [id number] UNIT PO QID for Oral Thrush for 10 Days, #200 ML 0 Refills Prov: LEIGH ANGEL MD 03/09/23 LEIGH ANGEL MD Mar 08, 2023 22:36
[2023-03-08] MEDS ORDERED: KETOROLAC INJ 15 MG/ML VIAL IVP STA (22:56)
[2023-03-08] MEDS ORDERED: ONDANSETRON INJECTION 4 MG/2 ML (SDV) IVP STA (22:56)
[2023-03-08 23:01] LABS: BASOPHILS # (AUTO) 0.1 10^3/uL (0.0-0.1); BASOPHILS % (AUTO) 0 % (0-10); EOSINOPHILS # (AUTO) 0.1 10^3/uL (0.0-0.3); EOSINOPHILS % (AUTO) 1 % (0-10); HEMATOCRIT 33 % (35-52); HEMOGLOBIN 10.9 g/dL (11.5-16.0); LYMPHOCYTES # (AUTO) 6.2 10^3/uL (1.0-4.0); LYMPHOCYTES % (AUTO) 29 % (12-44); MEAN CORPUSCULAR HEMOGLOBIN 30 pg (25-34); MEAN CORPUSCULAR HGB CONC 33 g/dL (32-36); MEAN CORPUSCULAR VOLUME 92 fL (80-99); MONOCYTES # (AUTO) 1.2 10^3/uL (0.0-1.0); MONOCYTES % (AUTO) 6 % (0-12); NEUTROPHILS # (AUTO) 13.6 10^3/uL (1.8-7.8); NEUTROPHILS % (AUTO) 63 % (42-75); PLATELET COUNT 504 10^3/uL (130-400); WHITE BLOOD COUNT 21.5 10^3/uL (4.3-11.0)
[2023-03-09] MEDS ORDERED: diphenhydrAMINE INJ 50 MG/ML VIAL ONE (00:22)
[2023-03-09] MEDS ORDERED: PROCHLORPERAZINE INJ 10 MG/2ML VIAL ONE (00:22)
[2023-03-09] MEDS ORDERED: fentaNYL INJECTION 100 MCG/2 ML VIAL ONE (00:22)
[2023-03-09] MEDS ORDERED: NYSTATIN ORAL SUSP 5 ML UDC ONE (00:22)
[2023-03-09 00:45] VITALS: BP 120/60
[2023-03-09] MEDS ORDERED: NYST1000 PO (01:26)
[2023-03-09] MEDS ORDERED: PROCHLORPERAZINE INJ 10 MG/2ML VIAL IV STA (01:42)
[2023-03-09] MEDS ORDERED: fentaNYL INJECTION 100 MCG/2 ML VIAL IVP STA (01:42)
[2023-03-09] MEDS ORDERED: diphenhydrAMINE INJ 50 MG/ML VIAL IVP STA (01:42)
[2023-03-09 01:59] LABS: BILIRUBIN,URINE NEGATIVE (NEGATIVE); CLARITY,URINE CLOUDY; COLOR,URINE YELLOW; GLUCOSE, URINE (UA) NEGATIVE (NEGATIVE); KETONES,URINE NEGATIVE (NEGATIVE); LEUKOCYTE ESTERASE ,URINE NEGATIVE (NEGATIVE); NITRITE,URINE NEGATIVE (NEGATIVE); PROTEIN,URINE NEGATIVE (NEGATIVE)
[2023-03-09 02:00] LABS: BAND NEUTROPHILS 1 %; LYMPHOCYTES % (MANUAL) 20 %; MONOCYTES % (MANUAL) 2 %; NEUTROPHILS % (MANUAL) 73 %
[2023-03-09 02:01] LABS: ATYPICAL LYMPHOCYTES 1 %; PLATELET ESTIMATE INCREASED; RBC MORPH NORMAL; REACTIVE LYMPHOCYTES 3 %; TOXIC GRANULATION/VACUOLAZATIO 2+
[2023-03-09 02:04] LABS: INR 0.9 (0.8-1.4)
[2023-03-09 02:05] LABS: POTASSIUM 3.1 MMOL/L (3.6-5.0); SODIUM 140 MMOL/L (135-145)
[2023-03-09 02:07] LABS: CARBON DIOXIDE 28 MMOL/L (21-32); CHLORIDE 101 MMOL/L (98-107)
[2023-03-09 02:09] LABS: ALKALINE PHOSPHATASE 76 U/L (40-136); BILIRUBIN,TOTAL 0.2 MG/DL (0.1-1.0); BUN/CREATININE RATIO 16; CALCIUM 8.9 MG/DL (8.5-10.1); CREATININE SERUM 0.98 MG/DL (0.60-1.30); GFR ESTIMATED 73; GLUCOSE 109 MG/DL (70-105); MAGNESIUM 1.8 MG/DL (1.6-2.4)
[2023-03-09 02:10] LABS: ALANINE AMINOTRANSFERASE 10 U/L (0-55)
[2023-03-09 02:12] LABS: LIPASE 28 U/L (8-78); TOTAL PROTEIN 6.5 GM/DL (6.4-8.2)
[2023-03-09 02:14] LABS: BACTERIA,URINE NEGATIVE /HPF; RBC,URINE RARE /HPF; WBC,URINE RARE /HPF
[2023-03-09 02:16] LABS: YEAST,URINE FEW /HPF
[2023-03-09] MEDS ORDERED: NYSTATIN ORAL SUSP 5 ML UDC PO ONE (03:00)
--- NOTE | 2023-03-09 08:15 | Diagnostic Imaging Report ---
INDICATION: Palpitations. COMPARISON: 03/05/2023 TECHNIQUE: Single radiograph of the chest dated 03/08/2023. FINDINGS: The cardiac silhouette is borderline enlarged, though stable. No significant pulmonary vascular congestion. The lungs are clear of focal pulmonary opacity. No pleural effusion. No pneumothorax. No acute osseous abnormality. IMPRESSION: Stable appearing examination without acute cardiopulmonary abnormality. Dictated by: Dictated on workstation # [id number]
== END 2023-03-09 00:45 | disposition home or self-care (01) ==
LOC: EDUNIT# 22:30 → ER FS 22:33
DX: R00.2 Palpitations (principal); B37.0 Candidal stomatitis; I45.10 Unspecified right bundle-branch block; I49.8 Other specified cardiac arrhythmias; D64.9 Anemia, unspecified; E87.6 Hypokalemia; G47.30 Sleep apnea, unspecified; E66.9 Obesity, unspecified; Z68.43 Body mass index [BMI] 50.0-59.9, adult; Z99.89 Dependence on other enabling machines and devices
CPT/HCPCS: 36415; 71045; 80053; 81000; 83690; 83735; 83880; 84484; 85007; 85027; 85610; 85730; 93005; 93041; 96374; 96375

== ENCOUNTER 2023-03-11 02:18 | Emergency (ER) | payer MEDICAID ==
[~2023-03-11] VITALS: Ht 152.4 cm; Wt 122.4 kg
[~2023-03-11 02:18] MED LIST changes: +NYST1000 PO
[2023-03-11] MEDS ORDERED: FAMOTIDINE 20 MG TABLET PO STA (02:31)
[2023-03-11] MEDS ORDERED: DroPERidol INJECTION 5 MG/2 ML (ED ONLY!) IV STA (02:34)
[2023-03-11] MEDS ORDERED: ASPIRIN 81 MG CHEWABLE TABLET PO STA (02:35)
--- NOTE | 2023-03-11 02:40 | ED Chest Pain ---
General Stated Complaint: HEADACHE,CHEST PRESSURE Source: patient, old records Exam Limitations: no limitations History of Present Illness Date Seen by Provider: Mar 11, 2023 Time Seen by Provider: 02:21 Initial Comments 42-year-old female with past medical history of hypertension and continued smoking coming in due to chest pain. The patient has been seen in the ER roughly every 48 hours for the past week for the same. The pressure is constant, nothing really seems to make it better or worse. Associated with mild headache and nausea. She has not taken any of her medicines yet today including no aspirin as of yet. Otherwise denying any other acute complaints including no shortness of breath, fever, vomiting, diarrhea, weakness, numbness, or any other concerns. Allergies and Home Medications Allergies Coded Allergies: gabapentin (Verified Allergy, Unknown, 01/25/19) metoclopramide (Unverified Allergy, Unknown, "CAUSES PT TO LOSE CONTROL OF MUSCLES", 01/25/19) Patient Home Medication List Home Medication List Reviewed: Yes Albuterol Sulfate (Albuterol Sulfate) 2.5 Mg/3 Ml (0.083 %) Vial.neb, 2.5 MG INH Q6H PRN for SHORTNESS OF BREATH, (Reported) Entered as Reported by: PRASANNA RAIN on 02/28/23923 Amlodipine Besylate (Amlodipine Besylate) 2.5 Mg Tablet, 2.5 MG PO DAILY, (Reported) Entered as Reported by: PRASANNA RAIN on 02/28/23923 Aspirin (Aspirin EC) 81 Mg Tablet.dr, 81 MG PO DAILY, (Reported) Entered as Reported by: DC CANSECO on 11/04/21 0835 Aspirin (Aspirin) 81 Mg Tab.chew, 81 MG PO DAILY Prescribed by: PITER TRACY on 02/28/23 1300 Atenolol (Atenolol) 50 Mg Tablet, 50 MG PO BID, (Reported) Entered as Reported by: DC CANSECO on 11/04/21 0835 Atorvastatin Calcium (Atorvastatin Calcium) 40 Mg Tablet, 40 MG PO DAILY, (Reported) Entered as Reported by: PRAASNNA RAIN on 02/28/23923 Buspirone HCl (Buspirone HCl) 30 Mg Tablet, 30 MG PO BID, (Reported) Entered as Reported by: PRASANNA RAIN on 02/28/23923 Cariprazine Hydrochloride (Vraylar) 1.5 Mg Capsule, 1.5 MG PO DAILY, (Reported) Entered as Reported by: PRASANNA RAIN on 02/28/23 09 Clopidogrel Bisulfate (Clopidogrel) 75 Mg Tablet, 75 MG PO DAILY, (Reported) Entered as Reported by: PRASANNA RAIN on 02/28/23923 Diphenhydramine HCl (Benadryl Allergy) 25 Mg Tablet, 25 MG PO DAILY PRN for ALLERGIES, (Reported) Entered as Reported by: KEILY JONES on 12/28/21 104 Estradiol (Estradiol Tablet) 1 Mg Tablet, 1 MG PO DAILY, (Reported) Entered as Reported by: MADDY DANIELLE on 05/20/19 1327 Ethosuximide (Ethosuximide) 250 Mg Capsule, 250 MG PO HS, (Reported) Entered as Reported by: MADDY DANIELLE on 04/12/16 0942 Ferrous Sulfate (Ferosul) 325 Mg (65 Mg Iron) Tablet, 325 MG PO DAILY, (Reported) Entered as Reported by: PRASANNA RAIN on 02/28/23 09 Fluoxetine HCl (Fluoxetine HCl) 40 Mg Capsule, 80 MG PO DAILY, (Reported) Entered as Reported by: LILIBETH DOUGLAS on 01/26/19 0349 Fluticasone Propion/Salmeterol (Fluticasone-Salmeterol 500-50) 500 Mcg-50 Mcg/Dose Blst.w.dev, 1 PUFF INH BID, (Reported) Entered as Reported by: PRASANNA RAIN on 02/28/23923 Hydroxyzine HCl (Hydroxyzine HCl) 50 Mg Tablet, 50 MG PO Q8H PRN for ANXIETY, (Reported) Entered as Reported by: PRASANNA RAIN on 02/28/23 09 Isosorbide Mononitrate (Isosorbide Mononitrate ER) 60 Mg Tab, 60 MG PO DAILY, (Reported) Entered as Reported by: KEILY JONES on 12/28/21 104 Lidocaine (Lidocaine 5% Patch) 5 % Adh..patch, 1 EACH TP Q12H PRN for Neuropathic pain, (Reported) Entered as Reported by: PRASANNA RAIN on 02/28/23923 Metaxalone (Metaxalone) 800 Mg Tablet, 800 MG PO TID PRN for FLUID RETENTION, (Reported) Entered as Reported by: CARMELO CLAUDIO on 12/30/22 0306 Nitroglycerin (Nitroglycerin) 0.4 Mg Tab.subl, 0.4 MG SL UD PRN for CHEST PAIN, (Reported) Entered as Reported by: KEILY JONES on 12/28/21 1042 Nystatin (Nystatin) 100,000 Unit/Ml Oral.susp, 500,000 UNIT PO QID Prescribed by: LEIGH ANGEL on 03/09/23 0126 Ondansetron (Ondansetron Odt) 4 Mg Tab.rapdis, 4 MG PO Q8H PRN for NAUSEA/VOMITING-1ST LINE, (Reported) Entered as Reported by: PRASANNA RAIN on 02/28/23923 Pantoprazole Sodium (Pantoprazole Sodium) 40 Mg Tablet.dr, 40 MG PO BID, (Rep orted) Entered as Reported by: PRASANNA RAIN on 02/28/23923 Potassium Chloride (Potassium Chloride) 20 Meq Tab.er.prt, 20 MEQ PO DAILY, (Reported) Entered as Reported by: PRASANNA RAIN on 02/28/23923 Pregabalin (Pregabalin) 200 Mg Capsule, 200 MG PO TID, (Reported) Entered as Reported by: PRASANNA RAIN on 02/28/23923 Ranolazine (Ranolazine ER) 1,000 Mg Tab.er.12h, 1,000 MG PO BID, (Reported) Entered as Reported by: PRASANNA RAIN on 02/28/23923 Tiotropium Bartley (Tiotropium Bartley) 18 Mcg Cap.w.dev, 1 PUFF INH DAILY, (Reported) Entered as Reported by: PRASANNA RAIN on 02/28/23923 Review of Systems Review of Systems Constitutional: No fever EENTM: No Symptoms Reported Respiratory: No Symptoms Reported Cardiovascular: See HPI Gastrointestinal: See HPI Genitourinary: No Symptoms Reported Musculoskeletal: no symptoms reported Skin: no symptoms reported Psychiatric/Neurological: See HPI Endocrine: No Symptoms Reported Hematologic/Lymphatic: No Symptoms Reported Past Lfiqhsv-Aponyt-Gkluur Hx Patient Social History Tobacco Use?: Yes Tobacco type used: Cigarettes Immunizations Up To Date Tetanus Booster (TDap): Unknown First/Initial COVID19 Vaccinat: unk Second COVID19 Vaccination Suhas: unk Third COVID19 Vaccination Date: unk Seasonal Allergies Seasonal Allergies: Yes Past Medical History Surgery/Hospitalization HX: Angina Surgeries: Yes (dental extractions, dxls, bmt, 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, LEFT EAR) Section, Ear Surgery, Gallbladder, Hysterectomy, Orthopedic, 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 Respiratory: Yes Asthma, Sleep Apnea, COPD Currently Using CPAP: Yes Currently Using BIPAP: No Cardiac: Yes Coronary Artery Disease, Heart Murmur, Hypertension, Irregular Heartbeat Neurological: Yes Headaches /Migraines, Seizure Disorder 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 Disorders: Yes Female 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 Disorders: 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 [employer] History: Hysterectomy, 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 Sexually Transmitted Disease: No Genitourinary: Yes Kidney Stones Gastrointestinal: Yes Colitis, Gastroesophageal Reflux, Diverticulosis, Hemorrhoids, Polyps, Hiatal Hernia, Ulcer Musculoskeletal: Yes (spina bifida) Arthritis, Scoliosis, Chronic Back Pain Endocrine: No HEENT: Yes Chronic Ear Infection Hearing Impairment: Denies, Hard of Hearing Cancer: No Psychosocial: Yes Anxiety, Depression Integumentary: No Blood Disorders: No Family Medical History No Pertinent Family Hx Physical Exam Vital Signs Vital Signs - First Documented 03/11/23 02:23 Temp 36.8 Pulse 71 Resp 20 B/P (MAP) 139/82 (101) Pulse Ox 97 O2 Delivery Room Air Capillary Refill : Height, Weight, BMI Height: 5'0" Weight: 235lbs. 0oz. 106.187672yp; 51.00 BMI Method:Stated General Appearance: No Apparent Distress, WD/WN HEENT: PERRL/EOMI, Normal ENT Inspection, Pharynx Normal Neck: Full Range of Motion, Normal Inspection, Non Tender, Supple Respiratory: Chest Non Tender, Lungs Clear, Normal Breath Sounds, No Accessory Muscle Use, No Respiratory Distress Cardiovascular: Regular Rate, Rhythm, Normal Peripheral Pulses Gastrointestinal: Normal Bowel Sounds, Non Tender, Soft; No Distended, No Guarding Extremity: Normal Capillary Refill, Normal Inspection, Normal Range of Motion, Non Tender, No Calf Tenderness Neurologic/Psychiatric: Alert, Oriented x3, No Motor/Sensory Deficits, Normal Mood/Affect, Other (Normal gait) Skin: Normal Color, Warm/Dry Progress/Results/Core Measures Results/Orders Lab Results Laboratory Tests Test 03/11/23 02:40 Range/Units White Blood Count 25.0 H 4.3-11.0 10^3/uL Red Blood Count 3.85 3.80-5.11 10^6/uL Hemoglobin 11.8 11.5-16.0 g/dL Hematocrit 36 35-52 % Mean Corpuscular Volume 94 80-99 fL Mean Corpuscular Hemoglobin 31 25-34 pg Mean Corpuscular Hemoglobin Concent 33 32-36 g/dL Red Cell Distribution Width 15.8 H 10.0-14.5 % Platelet Count 496 H 130-400 10^3/uL Mean Platelet Volume 9.6 9.0-12.2 fL Immature Granulocyte % (Auto) 1 % Neutrophils (%) (Auto) 65 42-75 % Lymphocytes (%) (Auto) 29 12-44 % Monocytes (%) (Auto) 4 0-12 % Eosinophils (%) (Auto) 1 0-10 % Basophils (%) (Auto) 0 0-10 % Neutrophils # (Auto) 16.2 H 1.8-7.8 10^3/uL Lymphocytes # (Auto) 7.1 H 1.0-4.0 10^3/uL Monocytes # (Auto) 1.1 H 0.0-1.0 10^3/uL Eosinophils # (Auto) 0.2 0.0-0.3 10^3/uL Basophils # (Auto) 0.1 0.0-0.1 10^3/uL Immature Granulocyte # (Auto) 0.3 H 0.0-0.1 10^3/uL Prothrombin Time 12.6 12.2-14.7 SEC INR Comment 0.9 0.8-1.4 Sodium Level 142 135-145 MMOL/L Potassium Level 3.7 3.6-5.0 MMOL/L Chloride Level 103 98-107 MMOL/L Carbon Dioxide Level 28 21-32 MMOL/L Anion Gap 11 5-14 MMOL/L Blood Urea Nitrogen 16 7-18 MG/DL Creatinine 0.84 0.60-1.30 MG/DL Estimat Glomerular Filtration Rate 88 BUN/Creatinine Ratio 19 Glucose Level 110 H 70-105 MG/DL Calcium Level 9.3 8.5-10.1 MG/DL Magnesium Level 1.9 1.6-2.4 MG/DL Total Bilirubin 0.3 0.1-1.0 MG/DL Aspartate Amino Transf (AST/SGOT) 18 5-34 U/L Alanine Aminotransferase (ALT/SGPT) 12 0-55 U/L Alkaline Phosphatase 84 40-136 U/L Troponin I < 0.30 <0.30 NG/ML Total Protein 7.2 6.4-8.2 GM/DL My Orders Orders - TONY GOFF MD Cbc And Automated Diff (03/11/23 02:30) Magnesium (03/11/23 02:30) Chest 1 View Ap/Pa Only (03/11/23 02:30) Ekg Tracing (03/11/23 02:30) Comprehensive Metabolic Panel (03/11/23 02:30) Protime With Inr (03/11/23 02:30) Partial Thromboplastin Time (03/11/23 02:30) O2 (03/11/23 02:30) Monitor-Rhythm Ecg Trace Only (03/11/23 02:30) Ed Iv/Invasive Line Start (03/11/23 02:30) Troponin I Fs (03/11/23 02:30) Lidocaine 2% Viscous 15 Ml (Xylocaine Vi (03/11/23 02:45) Famotidine Tablet (Famotidine Tablet) (03/11/23 02:31) Antacid Suspension (Antacid Suspension (03/11/23 02:45) Droperidol Injection (Ed Only) (Droperid (03/11/23 02:34) Aspirin Chewable Tablet (Aspirin Chewabl (03/11/23 02:35) Medications Given in ED Current Medications Medications Dose Ordered Sig/Brissa Route Start Time Stop Time Status Last Admin Dose Admin Al Hydrox/Mg Hydrox/Simethicone 30 ml ONCE ONCE PO 03/11/23 02:45 03/11/23 02:46 DC 03/11/23 02:45 30 ML Lidocaine HCl 15 ml ONCE ONCE PO 03/11/23 02:45 03/11/23 02:46 DC 03/11/23 02:45 15 ML Vital Signs/I&O 03/11/23 02:23 Temp 36.8 Pulse 71 Resp 20 B/P (MAP) 139/82 (101) Pulse Ox 97 O2 Delivery Room Air Progress Progress Note : Progress Note 42-year-old female with above history coming in due to chest pain. ABCs were intact and vitals were stable on presentation. Physical exam reassuring including a soft and nontender abdomen. EKG ordered and interpreted by me showing no acute ischemic changes. Chest x-ray ordered and interpreted by me showing no pneumothorax, normal cardiac silhouette, appears similar to prior. An IV was placed and basic labs were obtained including cardiac biomarkers. She was given a GI cocktail for her nausea and chest pain given she has had a very thorough evaluation by cardiology. Within the past month she has had a stress test which was normal as well as a cardiac catheterization which did not require any intervention. Labs were significant for negative troponin, unremarkable creatinine, unremarkable electrolytes, elevated WBC which is normal for her. Patient is low risk for PE per [place] criteria. Symptoms not consistent with ACS given she has had similar evaluation dozens of times in the past year for the same symptoms and they have all been negative including a comprehensive cardiology evaluation which was negative. I believe she is stable for discharge with outpatient follow-up. I would recommend GI follow-up at this point. She was sent home with strict return precautions. Initial ECG Impression Date: Mar 11, 2023 Initial ECG Impression Time: 02:39 Initial ECG Rate: 71 Initial ECG Rhythm: Normal Sinus Comment Narrow QRS, normal axis, no significant ST changes or T wave abnormalities, appears similar to multiple prior EKGs Diagnostic Imaging Diagonstic Imaging: Xray (chest) Departure Impression Primary Impression: Recurrent chest pain Disposition: 01 HOME, SELF-CARE Condition: Stable Departure-Patient Inst. Decision time for Depature: 03:20 Referrals: MAYKEL CUMMINS APRN (PCP) Primary Care Physician [facility]/JENNIFER (Family) Primary Care Physician Patient Instructions: Chest Pain, Adult ED Add. Discharge Instructions: It does not appear like you are having any life-threatening causes of chest pain. Follow-up with your regular doctor, we do recommend following up with a GI specialist at this point to see if there are any other causes that could be causing her symptoms. Work/School Note: Work Release Form Date Seen in the Emergency Department: Mar 11, 2023 Return to Work: Mar 12, 2023 Restrictions: No Restrictions TONY GOFF MD Mar 11, 2023 02:40
[2023-03-11 02:42] LABS: BASOPHILS # (AUTO) 0.1 10^3/uL (0.0-0.1); BASOPHILS % (AUTO) 0 % (0-10); EOSINOPHILS # (AUTO) 0.2 10^3/uL (0.0-0.3); EOSINOPHILS % (AUTO) 1 % (0-10); HEMATOCRIT 36 % (35-52); HEMOGLOBIN 11.8 g/dL (11.5-16.0); LYMPHOCYTES # (AUTO) 7.1 10^3/uL (1.0-4.0); LYMPHOCYTES % (AUTO) 29 % (12-44); MEAN CORPUSCULAR HEMOGLOBIN 31 pg (25-34); MEAN CORPUSCULAR HGB CONC 33 g/dL (32-36); MEAN CORPUSCULAR VOLUME 94 fL (80-99); MEAN PLATELET VOLUME 9.6 fL (9.0-12.2); MONOCYTES # (AUTO) 1.1 10^3/uL (0.0-1.0); MONOCYTES % (AUTO) 4 % (0-12); NEUTROPHILS # (AUTO) 16.2 10^3/uL (1.8-7.8); NEUTROPHILS % (AUTO) 65 % (42-75); PLATELET COUNT 496 10^3/uL (130-400)
[2023-03-11] MEDS ORDERED: LIDOCAINE 2% VISCOUS 15 ML UDC PO ONE (02:45)
[2023-03-11] MEDS ORDERED: ANTACID SUSPENSION 30 ML UDC PO ONE (02:45)
[2023-03-11 03:01] LABS: BILIRUBIN,TOTAL 0.3 MG/DL (0.1-1.0); CALCIUM 9.3 MG/DL (8.5-10.1); CARBON DIOXIDE 28 MMOL/L (21-32); CHLORIDE 103 MMOL/L (98-107); MAGNESIUM 1.9 MG/DL (1.6-2.4); POTASSIUM 3.7 MMOL/L (3.6-5.0); SODIUM 142 MMOL/L (135-145); TOTAL PROTEIN 7.2 GM/DL (6.4-8.2)
[2023-03-11 03:05] LABS: BUN/CREATININE RATIO 19; CREATININE SERUM 0.84 MG/DL (0.60-1.30); GFR ESTIMATED 88; GLUCOSE 110 MG/DL (70-105)
[2023-03-11 03:06] LABS: ALANINE AMINOTRANSFERASE 12 U/L (0-55); ALKALINE PHOSPHATASE 84 U/L (40-136)
[2023-03-11 03:07] LABS: INR 0.9 (0.8-1.4); PROTHROMBIN TIME PATIENT 12.6 SEC (12.2-14.7)
[2023-03-11] MEDS ORDERED: CYCLOBENZAPRINE 10 MG TABLET PO STA (03:14)
[2023-03-11] MEDS ORDERED: ACETAMINOPHEN 325 MG TABLET PO ONE (03:15)
[2023-03-11 03:17] LABS: ALBUMIN 4.2 GM/DL (3.2-4.5)
[2023-03-11 03:21] VITALS: BP 141/84
--- NOTE | 2023-03-11 07:22 | Diagnostic Imaging Report ---
PATIENT HISTORY: chest pain. TECHNIQUE: Single frontal view of the chest. COMPARISON: 03/08/2023 FINDINGS: The lung volumes are normal. No focal consolidation is seen. No large pleural effusion or pneumothorax is seen. The cardiomediastinal silhouette is normal in size and contour. No acute osseous abnormality is seen. IMPRESSION: No acute pulmonary abnormality seen. Dictated by: Dictated on workstation # [id number]
== END 2023-03-11 03:21 | disposition home or self-care (01) ==
LOC: EDUNIT# 02:18 → ER FS 02:20
DX: R07.9 Chest pain, unspecified (principal); G47.30 Sleep apnea, unspecified; F17.210 Nicotine dependence, cigarettes, uncomplicated; Z99.89 Dependence on other enabling machines and devices
CPT/HCPCS: 36415; 71045; 80053; 83735; 84484; 85025; 85610; 85730; 93005; 93041; 96374

== ENCOUNTER 2023-03-18 09:33 | Emergency (ER) | payer MEDICAID ==
[~2023-03-18] VITALS: Ht 152 cm; Wt 120.0 kg
[2023-03-18 09:42] VITALS: BP 106/60
[2023-03-18] MEDS ORDERED: ASPIRIN 81 MG CHEWABLE TABLET PO ONE ×2 (09:45→10:00)
[2023-03-18 09:53] LABS: BASOPHILS # (AUTO) 0.1 10^3/uL (0.0-0.1); BASOPHILS % (AUTO) 0 % (0-10); EOSINOPHILS # (AUTO) 0.2 10^3/uL (0.0-0.3); EOSINOPHILS % (AUTO) 1 % (0-10); HEMATOCRIT 38 % (35-52); HEMOGLOBIN 12.3 g/dL (11.5-16.0); LYMPHOCYTES # (AUTO) 2.9 10^3/uL (1.0-4.0); LYMPHOCYTES % (AUTO) 17 % (12-44); MEAN CORPUSCULAR HEMOGLOBIN 30 pg (25-34); MEAN CORPUSCULAR HGB CONC 32 g/dL (32-36); MEAN CORPUSCULAR VOLUME 94 fL (80-99); MONOCYTES # (AUTO) 0.8 10^3/uL (0.0-1.0); MONOCYTES % (AUTO) 5 % (0-12); NEUTROPHILS # (AUTO) 12.6 10^3/uL (1.8-7.8); NEUTROPHILS % (AUTO) 76 % (42-75); PLATELET COUNT 423 10^3/uL (130-400); WHITE BLOOD COUNT 16.6 10^3/uL (4.3-11.0)
[2023-03-18] MEDS ORDERED: methylPREDNISolone INJ 125 MG VIAL IV STA (10:01)
[2023-03-18 10:02] LABS: INR 0.9 (0.8-1.4); PROTHROMBIN TIME PATIENT 12.6 SEC (12.2-14.7)
[2023-03-18 10:06] LABS: CALCIUM 9.4 MG/DL (8.5-10.1); CHLORIDE 101 MMOL/L (98-107); MAGNESIUM 2.1 MG/DL (1.6-2.4); POTASSIUM 3.9 MMOL/L (3.6-5.0); SODIUM 139 MMOL/L (135-145)
--- NOTE | 2023-03-18 10:07 | Diagnostic Imaging Report ---
INDICATION: Chest pain Lungs are clear. No failure, effusion or pneumothorax. IMPRESSION: No acute appearing abnormality. Dictated by: Dictated on workstation # [id number]
[2023-03-18 10:13] LABS: ALANINE AMINOTRANSFERASE 11 U/L (0-55); ALBUMIN 4.4 GM/DL (3.2-4.5); ALKALINE PHOSPHATASE 90 U/L (40-136); BILIRUBIN,TOTAL 0.5 MG/DL (0.1-1.0); BUN/CREATININE RATIO 10; CARBON DIOXIDE 28 MMOL/L (21-32); CREATININE SERUM 0.84 MG/DL (0.60-1.30); GFR ESTIMATED 88; GLUCOSE 107 MG/DL (70-105); TOTAL PROTEIN 7.3 GM/DL (6.4-8.2)
[2023-03-18] MEDS ORDERED: RT-Ipratropium/Albuterol NEB 3 ML VIAL INH ONE (10:15)
[2023-03-18 10:40] LABS: BILIRUBIN,URINE NEGATIVE (NEGATIVE); CLARITY,URINE CLEAR; COLOR,URINE YELLOW; GLUCOSE, URINE (UA) NEGATIVE (NEGATIVE); KETONES,URINE NEGATIVE (NEGATIVE); LEUKOCYTE ESTERASE ,URINE NEGATIVE (NEGATIVE); NITRITE,URINE NEGATIVE (NEGATIVE); PH,URINE 5.5 (5-9); PROTEIN,URINE NEGATIVE (NEGATIVE)
[2023-03-18 10:42] LABS: BACTERIA,URINE TRACE /HPF
[2023-03-18 10:49] LABS: AMPHETAMINE SCREEN, URINE NEGATIVE (NEGATIVE); BARBITURATE SCREEN URINE NEGATIVE (NEGATIVE); CANNABINOID SCREEN, URINE NEGATIVE (NEGATIVE); COCAINE SCREEN URINE NEGATIVE (NEGATIVE); METHADONE STAT NEGATIVE (NEGATIVE); OPIATE SCREEN URINE NEGATIVE (NEGATIVE); OXYCODONE STAT NEGATIVE (NEGATIVE); TRICYCLIC ANTIDEPRESSANTS SCRE NEGATIVE (NEGATIVE)
--- NOTE | 2023-03-18 10:51 | ED Cardiac General ---
History of Present Illness General Chief Complaint: Chest Pain Stated Complaint: CHEST PAIN; SOB; THORNE Nursing Triage Note: Patient has presented to ER with cc of ramesh pain that started about an 1 1/2 before she arrived. She reports that she has been short of breath since last night and she was just sitting down when her chest pain started . She did take 1 nitro at home but it did not help. She did take 1 baby aspirin at home. History of Present Illness Date Seen by Provider: Mar 18, 2023 Time Seen by Provider: 09:38 Initial Comments 42-year-old female with PMH of CAD/COPD/HTN/obesity/ active smoker ( 1pack/day) is here with c/o chest pain which began an hour and half ago. Pt started feeling SOB last night, and took a breathing treatment at home but it has not helped. Pt had a cath last week and was told she had 40% blockage. Denies cough, fever and chills, palpitations. Pt has no plans to quit smoking. Patient speaking in complete sentences and is not in any respiratory distress. Allergies and Home Medications Allergies Coded Allergies: gabapentin (Verified Allergy, Unknown, 01/25/19) metoclopramide (Unverified Allergy, Unknown, "CAUSES PT TO LOSE CONTROL OF MUSCLES", 01/25/19) Patient Home Medication List Home Medication List Reviewed: Yes Albuterol Sulfate (Albuterol Sulfate) 2.5 Mg/3 Ml (0.083 %) Vial.neb, 2.5 MG INH Q6H PRN for SHORTNESS OF BREATH, (Reported) Entered as Reported by: PRASANNA RAIN on 02/28/23923 Amlodipine Besylate (Amlodipine Besylate) 2.5 Mg Tablet, 2.5 MG PO DAILY, (Reported) Entered as Reported by: PRASANNA RAIN on 02/28/23923 Aspirin (Aspirin EC) 81 Mg Tablet.dr, 81 MG PO DAILY, (Reported) Entered as Reported by: DC CANSECO on 11/04/21 0835 Aspirin (Aspirin) 81 Mg Tab.chew, 81 MG PO DAILY Prescribed by: IPTER TRACY on 02/28/23 1300 Atenolol (Atenolol) 50 Mg Tablet, 50 MG PO BID, (Reported) Entered as Reported by: DC CANSECO on 11/04/21 0835 Atorvastatin Calcium (Atorvastatin Calcium) 40 Mg Tablet, 40 MG PO DAILY, (Reported) Entered as Reported by: PRASANNA RAIN on 02/28/23923 Buspirone HCl (Buspirone HCl) 30 Mg Tablet, 30 MG PO BID, (Reported) Entered as Reported by: PRASANNA RAIN on 02/28/23923 Cariprazine Hydrochloride (Vraylar) 1.5 Mg Capsule, 1.5 MG PO DAILY, (Reported) Entered as Reported by: PRASANNA RAIN on 02/28/23928 Clopidogrel Bisulfate (Clopidogrel) 75 Mg Tablet, 75 MG PO DAILY, (Reported) Entered as Reported by: PRASANNA RAIN on 02/28/23923 Diphenhydramine HCl (Benadryl Allergy) 25 Mg Tablet, 25 MG PO DAILY PRN for ALLERGIES, (Reported) Entered as Reported by: KEILY JONES on 12/28/21 1045 Estradiol (Estradiol Tablet) 1 Mg Tablet, 1 MG PO DAILY, (Reported) Entered as Reported by: MADDY DANIELLE on 05/20/19 1327 Ethosuximide (Ethosuximide) 250 Mg Capsule, 250 MG PO HS, (Reported) Entered as Reported by: MADDY DANIELLE on 04/12/16 0942 Ferrous Sulfate (Ferosul) 325 Mg (65 Mg Iron) Tablet, 325 MG PO DAILY, (Reported) Entered as Reported by: PRASANNA RAIN on 02/28/23923 Fluoxetine HCl (Fluoxetine HCl) 40 Mg Capsule, 80 MG PO DAILY, (Reported) Entered as Reported by: LILIBETH DOUGLAS on 01/26/19 0349 Fluticasone Propion/Salmeterol (Fluticasone-Salmeterol 500-50) 500 Mcg-50 Mcg/Dose Blst.w.dev, 1 PUFF INH BID, (Reported) Entered as Reported by: PRASANNA RAIN on 02/28/23923 Hydroxyzine HCl (Hydroxyzine HCl) 50 Mg Tablet, 50 MG PO Q8H PRN for ANXIETY, (Reported) Entered as Reported by: PRASANNA RAIN on 02/28/23923 Isosorbide Mononitrate (Isosorbide Mononitrate ER) 60 Mg Tab, 60 MG PO DAILY, (Reported) Entered as Reported by: KEILY JONES on 12/28/21 1042 Lidocaine (Lidocaine 5% Patch) 5 % Adh..patch, 1 EACH TP Q12H PRN for Neuropathic pain, (Reported) Entered as Reported by: PRASANNA RAIN on 02/28/23923 Metaxalone (Metaxalone) 800 Mg Tablet, 800 MG PO TID PRN for FLUID RETENTION, (Reported) Entered as Reported by: CARMELO CLAUDIO on 12/30/22 0306 Nitroglycerin (Nitroglycerin) 0.4 Mg Tab.subl, 0.4 MG SL UD PRN for CHEST PAIN, (Reported) Entered as Reported by: KEILY JONES on 12/28/21 1042 Nystatin (Nystatin) 100,000 Unit/Ml Oral.susp, 500,000 UNIT PO QID Prescribed by: LEIGH ANGEL on 03/09/23 0126 Ondansetron (Ondansetron Odt) 4 Mg Tab.rapdis, 4 MG PO Q8H PRN for NAUSEA/VOMITING-1ST LINE, (Reported) Entered as Reported by: PRASANNA RAIN on 02/28/23923 Pantoprazole Sodium (Pantoprazole Sodium) 40 Mg Tablet.dr, 40 MG PO BID, (Reported) Entered as Reported by: PRASANNA RAIN on 02/28/23923 Potassium Chloride (Potassium Chloride) 20 Meq Tab.er.prt, 20 MEQ PO DAILY, (Reported) Entered as Reported by: PRASANNA RAIN on 02/28/23923 Pregabalin (Pregabalin) 200 Mg Capsule, 200 MG PO TID, (Reported) Entered as Reported by: PRASANNA RAIN on 02/28/23923 Ranolazine (Ranolazine ER) 1,000 Mg Tab.er.12h, 1,000 MG PO BID, (Reported) Entered as Reported by: PRASANNA RAIN on 02/28/23923 Tiotropium Comstock (Tiotropium Comstock) 18 Mcg Cap.w.dev, 1 PUFF INH DAILY, (Reported) Entered as Reported by: PRASANNA RAIN on 02/28/23923 Review of Systems Review of Systems Constitutional: no symptoms reported EENTM: No Symptoms Reported Respiratory: No Symptoms Reported Cardiovascular: Chest Pain Gastrointestinal: No Symptoms Reported Genitourinary: No Symptoms Reported Musculoskeletal: no symptoms reported Skin: no symptoms reported Psychiatric/Neurological: No Symptoms Reported Endocrine: No Symptoms Reported Hematologic/Lymphatic: No Symptoms Reported Past Aoaplmj-Nulsbf-Faxdxp Hx Patient Social History Tobacco Use?: Yes Tobacco type used: Cigarettes Use of E-Cig and/or Vaping dev: No Substance use?: No Alcohol Use?: No Immunizations Up To Date Tetanus Booster (TDap): Unknown First/Initial COVID19 Vaccinat: unk Second COVID19 Vaccination Suhas: unk Third COVID19 Vaccination Date: unk Seasonal Allergies Seasonal Allergies: Yes Past Medical History Surgery/Hospitalization HX: Angina, COPD, [employer] Surgeries: Yes (dental extractions, dxls, bmt, 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, LEFT EAR) Section, Ear Surgery, Gallbladder, Hysterectomy, Orthopedic, 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 Respiratory: Yes Asthma, Sleep Apnea, COPD Currently Using CPAP: Yes Currently Using BIPAP: No Cardiac: Yes Coronary Artery Disease, Heart Murmur, Hypertension, Irregular Heartbeat Neurological: Yes Headaches /Migraines, Seizure Disorder 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 Disorders: Yes Female 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 Disorders: 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 [employer] History: Hysterectomy, 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 Sexually Transmitted Disease: No Genitourinary: Yes Kidney Stones Gastrointestinal: Yes Colitis, Gastroesophageal Reflux, Diverticulosis, Hemorrhoids, Polyps, Hiatal Hernia, Ulcer Musculoskeletal: Yes (spina bifida) Arthritis, Scoliosis, Chronic Back Pain Endocrine: No HEENT: Yes Chronic Ear Infection Hearing Impairment: Denies, Hard of Hearing Cancer: No Psychosocial: Yes Anxiety, Depression Integumentary: No Blood Disorders: No Family Medical History No Pertinent Family Hx Physical Exam Vital Signs Vital Signs - First Documented 03/18/23 09:42 Temp 36.7 Pulse 69 Resp 19 B/P (MAP) 106/60 (75) Pulse Ox 97 Capillary Refill : Height, Weight, BMI Height: 5'0" Weight: 235lbs. 0oz. 106.545519di; 51.00 BMI Method:Stated General Appearance: No Apparent Distress, Obese HEENT: PERRL/EOMI Neck: Full Range of Motion, Normal Inspection Respiratory: Chest Non Tender, Lungs Clear, Normal Breath Sounds Cardiovascular: Regular Rate, Rhythm Gastrointestinal: Non Tender, Soft Extremity: Normal Range of Motion Neurologic/Psychiatric: Alert, Oriented x3 Skin: Normal Color Progress/Results/Core Measures Results/Orders Lab Results Laboratory Tests Test 03/18/23 09:50 Range/Units White Blood Count 16.6 H 4.3-11.0 10^3/uL Red Blood Count 4.05 3.80-5.11 10^6/uL Hemoglobin 12.3 11.5-16.0 g/dL Hematocrit 38 35-52 % Mean Corpuscular Volume 94 80-99 fL Mean Corpuscular Hemoglobin 30 25-34 pg Mean Corpuscular Hemoglobin Concent 32 32-36 g/dL Red Cell Distribution Width 15.9 H 10.0-14.5 % Platelet Count 423 H 130-400 10^3/uL Mean Platelet Volume 9.0 9.0-12.2 fL Immature Granulocyte % (Auto) 1 % Neutrophils (%) (Auto) 76 H 42-75 % Lymphocytes (%) (Auto) 17 12-44 % Monocytes (%) (Auto) 5 0-12 % Eosinophils (%) (Auto) 1 0-10 % Basophils (%) (Auto) 0 0-10 % Neutrophils # (Auto) 12.6 H 1.8-7.8 10^3/uL Lymphocytes # (Auto) 2.9 1.0-4.0 10^3/uL Monocytes # (Auto) 0.8 0.0-1.0 10^3/uL Eosinophils # (Auto) 0.2 0.0-0.3 10^3/uL Basophils # (Auto) 0.1 0.0-0.1 10^3/uL Immature Granulocyte # (Auto) 0.1 0.0-0.1 10^3/uL Prothrombin Time 12.6 12.2-14.7 SEC INR Comment 0.9 0.8-1.4 Activated Partial Thromboplast Time 24 24-35 SEC Sodium Level 139 135-145 MMOL/L Potassium Level 3.9 3.6-5.0 MMOL/L Chloride Level 101 98-107 MMOL/L Blood Urea Nitrogen 8 7-18 MG/DL Calcium Level 9.4 8.5-10.1 MG/DL Magnesium Level 2.1 1.6-2.4 MG/DL My Orders Orders - VIANEY ANGLIN MD Cbc And Automated Diff (03/18/23 09:44) Comprehensive Metabolic Panel (03/18/23 09:44) Magnesium (03/18/23 09:44) Protime With Inr (03/18/23 09:44) Partial Thromboplastin Time (03/18/23 09:44) Troponin I Fs (03/18/23 09:44) Chest 1 View Ap/Pa Only (03/18/23 09:45) Aspirin Chewable Tablet (Aspirin Chewabl (03/18/23 09:45) Aspirin Chewable Tablet (Aspirin Chewabl (03/18/23 10:00) Manual Differential (03/18/23 09:50) Ipratropium/Albuterol Inh Soln (Ipratrop (03/18/23 10:15) Methylprednisolone Sod Succ (Methylpredn (03/18/23 10:01) Svn Small Volume Nebulizer (03/18/23 10:01) Drug Screen Stat (Urine) (03/18/23 10:05) Ua Culture If Indicated (03/18/23 10:05) Medications Given in ED Current Medications Medications Dose Ordered Sig/Brissa Route Start Time Stop Time Status Last Admin Dose Admin Albuterol/ Ipratropium 3 ml ONCE ONCE INH 03/18/23 10:15 03/18/23 10:16 03/18/23 10:06 3 ML Aspirin 324 mg ONCE ONCE PO 03/18/23 09:45 03/18/23 09:51 DC 03/18/23 09:50 324 MG Vital Signs/I&O 03/18/23 09:42 Temp 36.7 Pulse 69 Resp 19 B/P (MAP) 106/60 (75) Pulse Ox 97 Blood Pressure Mean: 75 Progress Progress Note : Progress Note 1. ACS RULE OUT/ HEARTBURN: - CXR: no acute findings - CBC: WBC of 16, elevated - CMP:unremarkable - UA/ UDS: negative - Pt took one baby aspirin at home before coming and one nitro - EKG: non-ischemic - Troponin undetected - ASA 243mg STAT in ER - DUo neb/ Solumedrol 125mg iv - Toradol 15mg iv and Maalox - Pt does not have any cardiac cause for her chest pain at this time, and appears more like heartburn. Extensive discussion with patient regarding smoking cessation. Advised to follow-up with PCP within the next week. Patient just had a cardiology appointment yesterday and was told her chest pain is not due to her heart but due to smoking and her COPD as per patient The patient was seen in the ED, and treated appropriately to presentation at a specific point in time. Patient is informed that there is a possibility that disease and illness can evolve and change in acuity rapidly or slowly after patient is discharged from the ER. Precautionary advice given to the patient for immediate return to ER if symptoms worsen or do not resolve, and to seek [facility] care sooner rather than later. Pt also advised on the importance of PCP follow up and compliance with management and follow up plan with PCP and/or specialist, as this is part of the management plan. Pt verbally expressed understanding. Diagnostic Imaging Diagonstic Imaging: Xray Plain Films/CT/US/NM/MRI: chest Comments [facility] [place], [place] NAME: JUVENTINO [facility] REC#: [id number] PT STATUS: REG ER : 1980 PHYSICIAN: VIANEY ANGLIN MD ADMIT DATE: 03/18/23/ER FS Signed Date of Exam:03/18/23 CHEST 1 VIEW AP/PA ONLY INDICATION: Chest pain Lungs are clear. No failure, effusion or pneumothorax. IMPRESSION: No acute appearing abnormality. Dictated by: Dictated on workstation # [id number] Dict: 03/18/23 1001 Trans: 03/18/23 1016 [facility] [id number] Interpreted by: ELSA ROSS Electronically signed by: ELSA ROSS 03/18/23 1016 Departure Impression Primary Impression: Ruled out for myocardial infarction Additional Impressions: Heartburn Smoker unmotivated to quit Disposition: 01 HOME, SELF-CARE Condition: Stable Departure-Patient Inst. Referrals: MAYKEL CUMMINS APRN (PCP) Primary Care Physician [facility]/K (Family) Primary Care Physician Patient Instructions: Chest Pain That Is Not Caused by the Heart (DC), Smoking: Not Just Harmful to Your Lungs and Heart, Quitting Smoking ED, Dyspepsia Add. Discharge Instructions: - Pt does not have any cardiac cause for her chest pain at this time, and appears more like heartburn. Extensive discussion with patient regarding smoking cessation. Advised to follow-up with PCP within the next week. All discharge instructions reviewed with patient and/or family. Voiced understanding. VIANEY NAGLIN MD Mar 18, 2023 10:51
[2023-03-18] MEDS ORDERED: ANTACID SUSPENSION 30 ML UDC PO ONE (11:00)
[2023-03-18] MEDS ORDERED: KETOROLAC INJ 15 MG/ML VIAL IVP ONE (11:00)
[2023-03-18 11:57] LABS: LYMPHOCYTES % (MANUAL) 19 %; MONOCYTES % (MANUAL) 2 %; NEUTROPHILS % (MANUAL) 79 %
== END 2023-03-18 11:10 | disposition home or self-care (01) ==
LOC: EDUNIT# 09:33 → ER FS 09:34
DX: R12 Heartburn (principal); G47.30 Sleep apnea, unspecified; E66.9 Obesity, unspecified; F17.210 Nicotine dependence, cigarettes, uncomplicated; Z68.43 Body mass index [BMI] 50.0-59.9, adult; Z99.89 Dependence on other enabling machines and devices; Z71.6 Tobacco abuse counseling
CPT/HCPCS: 36415; 71045; 80053; 80306; 81000; 83735; 84484; 85007; 85027; 85610; 85730; 93005; 96374; 96375

== ENCOUNTER 2023-03-29 06:17 | Outpatient (CLI) | payer MEDICAID ==
[~2023-03-29] VITALS: Ht 164 cm; Wt 120.0 kg
== END 2023-03-31 14:02 | disposition home or self-care (01) ==
LOC: PREOP 06:17
PROVIDERS: ATTEND Surgery
DX: Z01.818 Encounter for other preprocedural examination (principal)

== ENCOUNTER 2023-04-08 19:22 | Emergency (ER) | payer MEDICAID ==
[~2023-04-08] VITALS: Ht 152 cm; Wt 120.0 kg
[2023-04-08] MEDS ORDERED: NITROGLYCERIN 2% OINT 1 GM UNIT DOSE PACKET TOP STA (19:29)
[2023-04-08] MEDS ORDERED: ASPIRIN 81 MG CHEWABLE TABLET PO ONE (19:30)
[2023-04-08] MEDS ORDERED: PANTOPRAZOLE INJECTION 40 MG VIAL IV STA (19:30)
[2023-04-08] MEDS ORDERED: DroPERidol INJECTION 5 MG/2 ML (ED ONLY!) IV STA (19:30)
[2023-04-08] MEDS ORDERED: fentaNYL INJECTION 100 MCG/2 ML VIAL IVP STA (19:30)
[2023-04-08] MEDS ORDERED: KETOROLAC INJ 15 MG/ML VIAL IVP STA (19:30)
--- NOTE | 2023-04-08 19:38 | ED Chest Pain ---
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 STATES SHE TOOK X2 NITRO AT HOME THAT HELPED, AND ANTACIDS. COMPLAINS OF NAUSEA. Source: patient, old records (Cardiac cath February 28, [address] Gary, showed mild coronary artery disease with a 40% stenosis in the mid section of the LAD with mild plaquing in the left circumflex and the dominant RCA. Recommended medical management and risk modifications, such as stopping smoking which patient continues to do.) History of Present Illness Date Seen by Provider: Apr 08, 2023 Time Seen by Provider: 19:24 Initial Comments 42-year-old female presenting again with chest pain to the emergency department. She states that this episode started about 2 hours prior to arrival while she was walking her dog. She took 2 sublingual nitroglycerin at home and those helped. She also took 3 generic Tums. She is having some nausea but has not vomited. She feels like there is tenderness to her ribs on the left side. She denies any fall or cough. She has an EGD scheduled on the to look for gastritis, ulcers, esophagitis. Timing/Duration: 1-3 hours, constant Severity/Quality: severe, pressure, sharp Radiation: no radiation Activities at Onset: activity (Walking her dog) ASA po FEDERAL LAW CLERK: No NTG SL FEDERAL LAW CLERK: Yes Associated Symptoms: No abdominal pain, No back pain, No diaphoresis, No dizzi ness, No edema; fatigue; No fever/chills, No headache, No heartburn; nausea/vomiting; No rash; shortness of breath; No swelling/lump in chest, No syncope, No weakness Allergies and Home Medications Allergies Coded Allergies: gabapentin (Verified Allergy, Unknown, 01/25/19) metoclopramide (Unverified Allergy, Unknown, "CAUSES PT TO LOSE CONTROL OF MUSCLES", 01/25/19) Patient Home Medication List Home Medication List Reviewed: Yes Albuterol Sulfate (Albuterol Sulfate) 2.5 Mg/3 Ml (0.083 %) Vial.neb, 2.5 MG INH Q6H PRN for SHORTNESS OF BREATH, (Reported) Entered as Reported by: PRASANNA RAIN on 02/28/23 0924 Amlodipine Besylate (Amlodipine Besylate) 2.5 Mg Tablet, 2.5 MG PO DAILY, (Reported) Entered as Reported by: PRASANNA RAIN on 02/28/23 09 Aspirin (Aspirin EC) 81 Mg Tablet.dr, 81 MG PO DAILY, (Reported) Entered as Reported by: DC CANSECO on 11/04/21 0835 Atenolol (Atenolol) 50 Mg Tablet, 50 MG PO BID, (Reported) Entered as Reported by: DC CANSECO on 11/04/21 0835 Atorvastatin Calcium (Atorvastatin Calcium) 40 Mg Tablet, 40 MG PO DAILY, (Reported) Entered as Reported by: PRASANNA RAIN on 02/28/23923 Buspirone HCl (Buspirone HCl) 30 Mg Tablet, 30 MG PO BID, (Reported) Entered as Reported by: PRASANNA RAIN on 02/28/23 09 Cariprazine Hydrochloride (Vraylar) 1.5 Mg Capsule, 1.5 MG PO DAILY, (Reported) Entered as Reported by: PRASANNA RAIN on 02/28/23 09 Clopidogrel Bisulfate (Clopidogrel) 75 Mg Tablet, 75 MG PO DAILY, (Reported) Entered as Reported by: PRASANNA RAIN on 02/28/23923 Diphenhydramine HCl (Benadryl Allergy) 25 Mg Tablet, 25 MG PO DAILY PRN for ALLERGIES, (Reported) Entered as Reported by: KEILY JONES on 12/28/21 1045 Estradiol (Estradiol Tablet) 1 Mg Tablet, 1 MG PO DAILY, (Reported) Entered as Reported by: MADDY DANIELLE on 05/20/19 1327 Ethosuximide (Ethosuximide) 250 Mg Capsule, 250 MG PO HS, (Reported) Entered as Reported by: MADDY DANIELLE on 04/12/16 0942 Ferrous Sulfate (Ferosul) 325 Mg (65 Mg Iron) Tablet, 325 MG PO DAILY, (Reported) Entered as Reported by: PRASANNA RAIN on 02/28/23 09 Fluoxetine HCl (Fluoxetine HCl) 40 Mg Capsule, 80 MG PO DAILY, (Reported) Entered as Reported by: LILIBETH DOUGLAS on 01/26/19 0349 Fluticasone Propion/Salmeterol (Fluticasone-Salmeterol 500-50) 500 Mcg-50 Mcg/Dose Blst.w.dev, 1 PUFF INH BID, (Reported) Entered as Reported by: PRASANNA RAIN on 02/28/23923 Hydroxyzine HCl (Hydroxyzine HCl) 50 Mg Tablet, 50 MG PO Q8H PRN for ANXIETY, (Reported) Entered as Reported by: PRASANNA RAIN on 02/28/23923 Isosorbide Mononitrate (Isosorbide Mononitrate ER) 60 Mg Tab, 60 MG PO DAILY, (Reported) Entered as Reported by: KEILY JONES on 12/28/21 104 Lidocaine (Lidocaine 5% Patch) 5 % Adh..patch, 1 EACH TP Q12H PRN for Neuropathic pain, (Reported) Entered as Reported by: PRASANNA RAIN on 02/28/23923 Magnesium Oxide (Magnesium Oxide) 400 Mg (241.3 Mg Magnesium) Tablet, 400 MG PO BID Prescribed by: LEIGH ANGEL on 04/08/23 211 Metaxalone (Metaxalone) 800 Mg Tablet, 800 MG PO TID PRN for FLUID RETENTION, (Reported) Entered as Reported by: CARMELO CLAUDIO on 12/30/22 0306 Nitroglycerin (Nitroglycerin) 0.4 Mg Tab.subl, 0.4 MG SL UD PRN for CHEST PAIN, (Reported) Entered as Reported by: KEILY JONES on 12/28/21 104 Nystatin (Nystatin) 100,000 Unit/Ml Oral.susp, 500,000 UNIT PO QID Prescribed by: LEIGH ANGEL on 03/09/23 0126 Ondansetron (Ondansetron Odt) 4 Mg Tab.rapdis, 4 MG PO Q8H PRN for NAUSEA/VOMITING-1ST LINE, (Reported) Entered as Reported by: PRASANNA RAIN on 02/28/23923 Pantoprazole Sodium (Pantoprazole Sodium) 40 Mg Tablet.dr, 40 MG PO BID, (Reported) Entered as Reported by: PRASANNA RAIN on 02/28/23923 Potassium Chloride (Potassium Chloride) 20 Meq Tab.er.prt, 20 MEQ PO DAILY, (Reported) Entered as Reported by: PRASANNA RAIN on 02/28/23923 Potassium Chloride (Potassium Chloride) 10 Meq Capsule.er, 20 MEQ PO BID Prescribed by: LEIGH ANGEL on 04/08/232111 Pregabalin (Pregabalin) 200 Mg Capsule, 200 MG PO TID, (Reported) Entered as Reported by: PRASANNA RAIN on 02/28/23923 Ranolazine (Ranolazine ER) 1,000 Mg Tab.er.12h, 1,000 MG PO BID, (Reported) Entered as Reported by: PRASANNA RAIN on 02/28/23923 Tiotropium [place] (Tiotropium [place]) 18 Mcg Cap.w.dev, 1 PUFF INH DAILY, (Reported) Entered as Reported by: PRASANNA RAIN on 02/28/23923 Review of Systems Review of Systems Constitutional: No chills, No fever EENTM: No Symptoms Reported Respiratory: See HPI Cardiovascular: See HPI Gastrointestinal: See HPI Genitourinary: No Symptoms Reported Musculoskeletal: no symptoms reported Skin: no symptoms reported Psychiatric/Neurological: Anxiety Past Njhcpuo-Puuxwh-Mwdqvs Hx Patient Social History Tobacco Use?: Yes Smoking Status: Current Everyday Smoker Substance use?: No Alcohol Use?: No Immunizations Up To Date Tetanus Booster (TDap): Unknown First/Initial COVID19 Vaccinat: unk Second COVID19 Vaccination Suhas: unk Third COVID19 Vaccination Date: unk Seasonal Allergies Seasonal Allergies: Yes Past Medical History Surgery/Hospitalization HX: Angina, COPD, HEAVY CIGARETTE SMOKER Surgeries: Yes (dental extractions, dxls, bmt, 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, LEFT EAR) Section, Ear Surgery, Gallbladder, Hysterectomy, Orthopedic, 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 Respiratory: Yes (WEARS O2 2L) Asthma, Sleep Apnea, COPD Currently Using CPAP: Yes Currently Using BIPAP: No Cardiac: Yes Atrial Fibrillation, Coronary Artery Disease, Heart Murmur, Hypertension, Irregular Heartbeat Neurological: Yes (MIGRAINE HEADACHES) Headaches /Migraines, Seizure Disorder 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 Disorders: Yes Female 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 Disorders: 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, 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 Sexually Transmitted Disease: No Genitourinary: Yes Kidney Stones Gastrointestinal: Yes (DIVERTICULITIS/GASTRITIS/ULCERS) Colitis, Gastroesophageal Reflux, Diverticulosis, Hemorrhoids, Polyps, Hiatal Hernia, Ulcer Musculoskeletal: Yes (spina bifida) Arthritis, Scoliosis, Chronic Back Pain Endocrine: No HEENT: Yes Chronic Ear Infection Hearing Impairment: Denies, Hard of Hearing Cancer: No Psychosocial: Yes Anxiety, Depression Integumentary: No Blood Disorders: No Adverse Reaction/Blood Tranf: No (HAS HAD BLOOD WITH NO REACTION) Family Medical History No Pertinent Family Hx Physical Exam Vital Signs Vital Signs - First Documented 04/08/23 04/08/23 19:24 22:01 Temp 36.4 Pulse 72 Resp 20 B/P (MAP) 100/63 Pulse Ox 98 O2 Delivery Room Air Capillary Refill : Height, Weight, BMI Height: 5'0" Weight: 235lbs. 0oz. 106.880282xu; 51.00 BMI Method:Stated General Appearance: Anxious, Mild Distress, Obese HEENT: PERRL/EOMI, Pharynx Normal Respiratory: No Chest Non Tender (Tender to palpation on the left anterior chest wall where she is complaining of pain); Lungs Clear, Normal Breath Sounds, No Accessory Muscle Use, No Respiratory Distress Cardiovascular: Regular Rate, Rhythm, No Murmur, Normal Peripheral Pulses Gastrointestinal: Normal Bowel Sounds, No Pulsatile Mass, Non Tender, Soft Rectal: Deferred Extremity: Normal Capillary Refill, Normal Inspection, No Pedal Edema Neurologic/Psychiatric: Alert, Oriented x3 Skin: Normal Color, Warm/Dry Progress/Results/Core Measures Results/Orders Lab Results Laboratory Tests Test 04/08/23 19:40 04/08/23 21:05 Range/Units White Blood Count 12.4 H 4.3-11.0 10^3/uL Red Blood Count 3.73 L 3.80-5.11 10^6/uL Hemoglobin 11.2 L 11.5-16.0 g/dL Hematocrit 34 L 35-52 % Mean Corpuscular Volume 91 80-99 fL Mean Corpuscular Hemoglobin 30 25-34 pg Mean Corpuscular Hemoglobin Concent 33 32-36 g/dL Red Cell Distribution Width 14.2 10.0-14.5 % Platelet Count 382 130-400 10^3/uL Mean Platelet Volume 9.5 9.0-12.2 fL Immature Granulocyte % (Auto) 2 % Neutrophils (%) (Auto) 62 42-75 % Lymphocytes (%) (Auto) 31 12-44 % Monocytes (%) (Auto) 4 0-12 % Eosinophils (%) (Auto) 1 0-10 % Basophils (%) (Auto) 0 0-10 % Neutrophils # (Auto) 7.7 1.8-7.8 10^3/uL Lymphocytes # (Auto) 3.8 1.0-4.0 10^3/uL Monocytes # (Auto) 0.5 0.0-1.0 10^3/uL Eosinophils # (Auto) 0.1 0.0-0.3 10^3/uL Basophils # (Auto) 0.1 0.0-0.1 10^3/uL Immature Granulocyte # (Auto) 0.2 H 0.0-0.1 10^3/uL Prothrombin Time 12.6 12.2-14.7 SEC INR Comment 0.9 0.8-1.4 Activated Partial Thromboplast Time 24 24-35 SEC Sodium Level 141 135-145 MMOL/L Potassium Level 2.7 L 3.6-5.0 MMOL/L Chloride Level 101 98-107 MMOL/L Carbon Dioxide Level 31 21-32 MMOL/L Anion Gap 9 5-14 MMOL/L Blood Urea Nitrogen 7 7-18 MG/DL Creatinine 1.13 0.60-1.30 MG/DL Estimat Glomerular Filtration Rate 62 BUN/Creatinine Ratio 6 Glucose Level 106 H 70-105 MG/DL Calcium Level 7.9 L 8.5-10.1 MG/DL Corrected Calcium 8.1 L 8.5-10.1 MG/DL Magnesium Level 1.1 *L 1.6-2.4 MG/DL Total Bilirubin 0.2 0.1-1.0 MG/DL Aspartate Amino Transf (AST/SGOT) 18 5-34 U/L Alanine Aminotransferase (ALT/SGPT) 12 0-55 U/L Alkaline Phosphatase 124 40-136 U/L Troponin I < 0.30 < 0.30 <0.30 NG/ML Pro-B-Type Natriuretic Peptide 582.2 H <125.0 PG/ML Total Protein 6.7 6.4-8.2 GM/DL Albumin 3.8 3.2-4.5 GM/DL Lipase 25 8-78 U/L My Orders Orders - LEIGH ANGEL MD Cbc And Automated Diff (04/08/23 19:28) Magnesium (04/08/23 19:28) Chest 1 View Ap/Pa Only (04/08/23 19:28) Ekg Tracing (04/08/23 19:28) Comprehensive Metabolic Panel (04/08/23 19:28) Protime With Inr (04/08/23 19:28) Partial Thromboplastin Time (04/08/23 19:28) O2 (04/08/23 19:) Monitor-Rhythm Ecg Trace Only (04/08/23 19:28) Aspirin Chewable Tablet (Aspirin Chewabl (04/08/23 19:30) Ed Iv/Invasive Line Start (04/08/23 19:28) Lipase (04/08/23 19:28) Troponin I Fs (04/08/23 19:28) Probnp Fs (04/08/23 19:28) Nitroglycerin Ointment (Nitroglycerin (04/08/23 19:29) Pantoprazole Injection (Pantoprazole Inj (04/08/23 19:30) Fentanyl Injection (Fentanyl Injection (04/08/23 19:30) Droperidol Injection (Ed Only) (Droperid (04/08/23 19:30) Ketorolac Injection (Ketorolac Injection (04/08/23 19:30) Magnesium 1 Gm/100 Ml Ivpb (Magnesium 1 (04/08/23 20:15) Magnesium 1 Gm/100 Ml Ivpb (Magnesium 1 (04/08/23 20:10) Potassium Chloride (Tablet) (Potassium C (04/08/23 20:22) Troponin I Fs (04/08/23 21:15) Medications Given in ED Current Medications Medications Dose Ordered Sig/Brissa Route Start Time Stop Time Status Last Admin Dose Admin Aspirin 324 mg ONCE ONCE PO 04/08/23 19:30 04/08/23 19:31 DC 04/08/23 19:43 324 MG Magnesium Sulfate/ Dextrose 100 ml @ 100 mls/hr ONCE ONCE IV 04/08/23 20:15 04/08/23 21:14 DC 04/08/23 20:13 100 MLS/HR Vital Signs/I&O 04/08/23 04/08/23 19:24 22:01 Temp 36.4 Pulse 72 Resp 20 B/P (MAP) 100/63 Pulse Ox 98 O2 Delivery Room Air Progress Progress Note #1: Progress Note Differential diagnosis includes myocardial infarction, acute coronary syndrome, GERD, esophagitis, reflux, costochondritis. Obtain electrocardiogram to look for signs of ischemia. Placed on cardiac hospital monitor to watch her heart rate and rhythm. My initial interpretation shows her heart rate is in the 70s and a sinus rhythm. Obtain 1 view chest x- ray to look for acute pathology in her chest. Establish peripheral IV access and send labs for complete blood count, comprehensive metabolic profile, lipase, coagulation factors, troponin, proBNP. Order Nitropaste 1 inch to help with her pain as well as fentanyl 50 mcg IV, Toradol 15 mg IV, pantoprazole 40 mg IV. For nausea I ordered droperidol 2.5 mg IV. She has had multiple evaluations for chest pain in the past and she has not had any elevated troponins or ST elevation on her electrocardiograms here in the emergency department. Progress Note #2: Progress Note Patient had good pain control after treatment and medicines here. She was sleeping and having sonorous respirations in the room. Her chest x-ray did not show any acute process. Her electrocardiogram was not showing any acute ischemic changes. Her labs showed chronic mild elevation of her white blood cell count. Tonight she was up to 12.4. Her comprehensive metabolic profile showed a low potassium at 2.7 and a low magnesium at 1.1. Her troponin was less than 0.3. Ordered 1 g of magnesium IV to help supplement her magnesium level and oral potassium 40 mill equivalents p.o. x 1 to help with her low potassium. Anticipate discharge on magnesium and potassium supplements as well as encouraging her to follow-up with primary care in clinic for continued concerns. Keep her appointment for the EGD on Monday. 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 Progress Note #3: Time: 21:52 Progress Note Repeat troponin is still less than 0.3. This along with no ischemic changes on her EKG in the recent cardiac catheterization that did not demonstrate severe atherosclerotic blockages feel that this episode of pain was related back to patient's noncompliance with quitting smoking as well as could be partially related to her low electrolytes and musculoskeletal pain. Advised to supplement potassium and magnesium. Check back with her regular doctors and have the labs rechecked. Follow through with her EGD this upcoming week. Initial ECG Impression Date: Apr 08, 2023 Initial ECG Impression Time: 19:28 Initial ECG Rate: 71 Initial ECG Rhythm: Normal Sinus Initial ECG Comparisson: Unchanged (03/18/2023) Comment My initial interpretation and review of her electrocardiogram shows a sinus rhythm with heart rate of [address] interval [address] elevation. Incomplete right bundle branch block. Low QRS voltage in the precordial leads. QT interval 412 ms with a QTc interval 435 ms. Overall appears similar to tracing from March 18, 2023. Diagnostic Imaging Diagonstic Imaging: Xray Plain Films/CT/US/NM/MRI: chest Comments [facility], [facility] [place] [facility], [place] NAME: JUVENTINO BEAN [facility] REC#: [id number] PT STATUS: REG ER : 1980 PHYSICIAN: LEIGH ANGEL MD ADMIT DATE: 04/08/23/ER FS Draft Date of Exam:04/08/23 CHEST 1 VIEW AP/PA ONLY INDICATION: Chest and left rib pain. EXAMINATION: Portable upright AP view of the chest was obtained. COMPARISON: Study of 03/18/2023. FINDINGS: Heart size and pulmonary vascularity are at the upper limits of normal. There is no pneumothorax or consolidation. No pleural fluid is seen. IMPRESSION: No acute abnormality or adverse change is detected. Dictated on workstation # [id number] Dict: 04/08/231956 Trans: 04/08/231999 [facility] [id number] Interpreted by: ELSA TSANG MD Electronically signed by: Reviewed: Reviewed by Me Departure Impression Primary Impression: Atypical chest pain Additional Impressions: Hypomagnesemia Hypokalemia Disposition: 01 HOME, SELF-CARE Condition: Stable Departure-Patient Inst. Decision time for Depature: 21:53 Referrals: MAYKEL CUMMINS APRN (PCP) Primary Care Physician [facility]/JENNIFER (Family) Primary Care Physician Patient Instructions: Chest Pain, Adult ED, Low Magnesium Level, High Potassium Diet, Hypokalemia (DC) Add. Discharge Instructions: Your tests tonight looked okay and did not demonstrate any acute coronary event. There is no evidence of a heart attack tonight. Make sure to keep your appointment coming up with Dr. Brown for your EGD this week. Take supplemental magnesium and potassium to try and help keep your levels up. Check back with your regular provider for repeat test of these electrolytes to ensure that they have gone back to a normal level. All discharge instructions reviewed with patient and/or family. Voiced understanding. Scripts Potassium Chloride (Potassium Chloride) 10 Meq Capsule.er 20 MEQ PO BID for hypokalemia for 7 Days, #28 CAP 0 Refills Prov: LEIGH ANGEL MD 04/08/23 Magnesium Oxide (Magnesium Oxide) 400 Mg (241.3 Mg Magnesium) Tablet 400 MG PO BID for hypomagnesemia for 15 Days, #30 TAB 0 Refills Prov: LEIGH ANGEL MD 04/08/23 LEIGH ANGEL MD Apr 08, 2023 19:38
[2023-04-08 19:44] LABS: BASOPHILS # (AUTO) 0.1 10^3/uL (0.0-0.1); BASOPHILS % (AUTO) 0 % (0-10); EOSINOPHILS # (AUTO) 0.1 10^3/uL (0.0-0.3); EOSINOPHILS % (AUTO) 1 % (0-10); HEMATOCRIT 34 % (35-52); HEMOGLOBIN 11.2 g/dL (11.5-16.0); LYMPHOCYTES # (AUTO) 3.8 10^3/uL (1.0-4.0); LYMPHOCYTES % (AUTO) 31 % (12-44); MEAN CORPUSCULAR HEMOGLOBIN 30 pg (25-34); MEAN CORPUSCULAR HGB CONC 33 g/dL (32-36); MEAN CORPUSCULAR VOLUME 91 fL (80-99); MEAN PLATELET VOLUME 9.5 fL (9.0-12.2); MONOCYTES # (AUTO) 0.5 10^3/uL (0.0-1.0); MONOCYTES % (AUTO) 4 % (0-12); NEUTROPHILS # (AUTO) 7.7 10^3/uL (1.8-7.8); NEUTROPHILS % (AUTO) 62 % (42-75); PLATELET COUNT 382 10^3/uL (130-400); WHITE BLOOD COUNT 12.4 10^3/uL (4.3-11.0)
--- NOTE | 2023-04-08 20:00 | Diagnostic Imaging Report ---
INDICATION: Chest and left rib pain. EXAMINATION: Portable upright AP view of the chest was obtained. COMPARISON: Study of 03/18/2023. FINDINGS: Heart size and pulmonary vascularity are at the upper limits of normal. There is no pneumothorax or consolidation. No pleural fluid is seen. IMPRESSION: No acute abnormality or adverse change is detected. Dictated by: Dictated on workstation # [id number]
[2023-04-08 20:01] LABS: INR 0.9 (0.8-1.4); PROTHROMBIN TIME PATIENT 12.6 SEC (12.2-14.7)
[2023-04-08 20:03] LABS: ALKALINE PHOSPHATASE 124 U/L (40-136); BILIRUBIN,TOTAL 0.2 MG/DL (0.1-1.0); BUN/CREATININE RATIO 6; CALCIUM 7.9 MG/DL (8.5-10.1); CARBON DIOXIDE 31 MMOL/L (21-32); CHLORIDE 101 MMOL/L (98-107); CREATININE SERUM 1.13 MG/DL (0.60-1.30); GFR ESTIMATED 62; GLUCOSE 106 MG/DL (70-105); POTASSIUM 2.7 MMOL/L (3.6-5.0); SODIUM 141 MMOL/L (135-145)
[2023-04-08 20:04] LABS: ALANINE AMINOTRANSFERASE 12 U/L (0-55); ALBUMIN 3.8 GM/DL (3.2-4.5); LIPASE 25 U/L (8-78); TOTAL PROTEIN 6.7 GM/DL (6.4-8.2)
[2023-04-08 20:05] LABS: MAGNESIUM 1.1 MG/DL (1.6-2.4)
[2023-04-08] MEDS ORDERED: MAGNESIUM 1 GM/100 ML IVPB 100 ML IV ONE ×2 (20:10→20:15)
[2023-04-08] MEDS ORDERED: POTASSIUM CHLORIDE 20 MEQ TABLET PO STA (20:22)
[2023-04-08] MEDS ORDERED: POTA10CA84 PO (21:12)
[2023-04-08] MEDS ORDERED: MGX400T PO (21:12)
[2023-04-08 22:01] VITALS: BP 100/63
[2023-04-11] MEDS ORDERED: SUCR1TAB36 PO (14:26)
== END 2023-04-08 22:01 | disposition home or self-care (01) ==
LOC: EDUNIT# 19:22 → ER FS 19:23
DX: R07.89 Other chest pain (principal); E87.6 Hypokalemia; E83.42 Hypomagnesemia; J44.9 Chronic obstructive pulmonary disease, unspecified; G47.30 Sleep apnea, unspecified; E66.9 Obesity, unspecified; F17.210 Nicotine dependence, cigarettes, uncomplicated; Z68.43 Body mass index [BMI] 50.0-59.9, adult; Z99.81 Dependence on supplemental oxygen; Z99.89 Dependence on other enabling machines and devices
CPT/HCPCS: 36415; 71045; 80053; 83690; 83735; 83880; 84484; 85025; 85610; 85730; 93005; 93041

== ENCOUNTER 2023-04-11 11:07 | Day surgery (SDC) | payer MEDICAID ==
[~2023-04-11] VITALS: Ht 152.4 cm; Wt 120.0 kg
[~2023-04-11 11:07] MED LIST changes: +MGX400T PO; +POTA10CA84 PO
[2023-04-11] MEDS ORDERED: LACTATED RINGERS 1,000 ML 1,000 ML IV STA (11:13)
[2023-04-11] MEDS ORDERED: HURRICAINE EXT TUBE (BENZOCAINE) XX PRN (11:15)
[2023-04-11 11:30] VITALS: BP 107/49
--- NOTE | 2023-04-11 12:12 | Progress Note-Pre Operative ---
Pre-Operative Progress Note Date H&P Reviewed: Apr 11, 2023 Time H&P Reviewed: 12:11 History & Physical: H&P Reviewed, Patient Examed, No changes noted Pre-Operative Diagnosis: GERD with esophagitis, Atypical chest pain RAN CANTRELL DO Apr 11, 2023 12:12
[2023-04-11] MEDS ORDERED: ONDANSETRON INJECTION 4 MG/2 ML (SDV) ONE (12:27)
[2023-04-11] MEDS ORDERED: ONDANSETRON INJECTION 4 MG/2 ML (SDV) IVP ONE (12:30)
[2023-04-11] MEDS ORDERED: KETAMINE 50 MG/5 ML SYRINGE ONE (13:15)
--- NOTE | 2023-04-11 14:25 | Progress Note-Post Operative ---
Post-Operative Progess Note Surgeon (s)/Soils Analyst (s) Surgeon RAN CANTRELL DO Soils Analyst: n/a Pre-Operative Diagnosis GERD with esophagitis, Atypical chest pain Post-Operative Diagnosis possible antral gastritis Procedure & Operative Findings Date of Procedure 04/11/23 Procedure Performed/Findings EGD with biopsy Anesthesia Type per SALES AND CUSTOMER RELATIONS REP Estimated Blood Loss Estimated blood loss (mL): scant Specimens/Packing Specimens Removed antral biopsy x1 RAN CANTRELL DO Apr 11, 2023 14:25
[2023-04-11] MEDS ORDERED: SUCR1TAB36 PO (14:26)
--- NOTE | 2023-04-11 14:26 | Discharge Inst-Simple/Standard ---
Discharge Inst-Standard Discharge Medications New, Converted or Re-Newed RX: Transmitted to Pharmacy Patient Instructions/Follow Up Plan of Care/Instructions/FU: 2 weeks Stephanie Activity as Tolerated: Yes Discharge Diet: Formula RAN CANTRELL DO Apr 11, 2023 14:26
--- NOTE | 2023-04-11 14:27 | Anesthesia-General Post-Op ---
MAC Patient Condition Mental Status/LOC: Same as Preop Cardiovascular: Satisfactory Nausea/Vomiting: Absent Respiratory: Satisfactory Pain: Controlled Complications: Absent Post Op Complications Complications None Follow Up Care/Instructions Patient Instructions None needed. Anesthesiology Discharge Order Discharge Order Patient is doing well, no complaints, stable vital signs, no apparent adverse anesthesia problems. No complications reported per nursing. EMERALD GUPTA CRNA Apr 11, 2023 14:27
[2023-04-11 14:30] VITALS: BP_SYST 107; BP_SYST 131; BP_DIAS 49; BP_DIAS 67
[2023-04-11 15:10] VITALS: BP 131/67
--- NOTE | 2023-04-11 22:05 | OPERATIVE REPORT ---
DATE OF SERVICE: 04/11/2023 PREOPERATIVE DIAGNOSES: Gastroesophageal reflux disease with esophagitis, atypical chest pain. POSTOPERATIVE DIAGNOSES: Possible antral gastritis. PROCEDURE: EGD with biopsy. SURGEON: Ran Brown DO ANESTHESIA: Per RECRUITMENT INTERN. ESTIMATED BLOOD LOSS: Scant. COMPLICATIONS: None. SPECIMEN: Antral biopsy. INDICATIONS: The patient is a 42-year-old female with atypical chest pain and GERD with likely esophagitis. She understands risks and benefits of procedure and wished to proceed. Consent was signed in chart. DESCRIPTION OF PROCEDURE: The patient was taken to endoscopy suite, placed in left lateral recumbent position. Timeout was performed. Scope was inserted in the mouth, down the esophagus, stomach, into the duodenum without difficulty. No polyps, masses or ulcerations in the duodenum. Scope was slowly retracted back into the stomach, where it was further insufflated. The antral area showed maybe some antral gastritis. Biopsy of the antrum was obtained. Scope was retroflexed noting no other pathology. No polyps, masses or ulcerations. Scope was returned to its normal position, slowly withdrawn until distal esophagus. Normal appearance. No polyps, masses or ulcerations. Scope was slowly retracted back until completely removed. The patient tolerated the procedure well without complications, taken to recovery room in stable condition. RECOMMENDATIONS: The patient to continue on Protonix. We will add Carafate 1 gram 4 times a day to see if this helps any of her symptoms. She will follow up in a few weeks. Further recommendations pending biopsy results and symptoms. Job ID: [id number] DocumentID: [id number] Dictated Date: 04/11/2023 14:26:03 Capacity Planning Analyst Date: 04/11/2023 22:02:00 Dictated By: RAN BROWN DO
== END 2023-04-11 15:10 | disposition home or self-care (01) ==
LOC: ENDO 11:07
PROVIDERS: ATTEND Surgery
DX: K21.00 Gastro-esophageal reflux disease with esophagitis, without bleeding (principal); K31.89 Other diseases of stomach and duodenum; J44.9 Chronic obstructive pulmonary disease, unspecified; F17.210 Nicotine dependence, cigarettes, uncomplicated; E66.01 Morbid (severe) obesity due to excess calories; Z68.43 Body mass index [BMI] 50.0-59.9, adult; Z99.81 Dependence on supplemental oxygen; Z79.899 Other long term (current) drug therapy; Z79.02 Long term (current) use of antithrombotics/antiplatelets
CPT/HCPCS: 88305

== ENCOUNTER 2023-04-16 21:21 | Emergency (ER) | payer MEDICAID ==
[~2023-04-16] VITALS: Ht 152 cm; Wt 122.7 kg
[~2023-04-16 21:21] MED LIST changes: +SUCR1TAB36 PO
[2023-04-16] MEDS ORDERED: FAMOTIDINE 20 MG TABLET PO STA (21:31)
--- NOTE | 2023-04-16 21:35 | ED Chest Pain ---
General Stated Complaint: CHEST PRESSURE|SPASMS Source: patient Exam Limitations: no limitations History of Present Illness Date Seen by Provider: Apr 16, 2023 Time Seen by Provider: 21:24 Initial Comments 42-year-old female with past medical history of CAD, chronic pain, chronic smoking coming in due to chest pressure.'s been going on for hours, center of her chest, nothing really seems to make it better or worse. She has had nitro, Tylenol, and a muscle relaxer which have not really helped. She had baby aspirin this morning, but she does have an epidural in the morning for chronic back pain. She also had an upper GI scope going on a week ago. There is perhaps some mild gastritis with the biopsy pending. She is on Protonix. Allergies and Home Medications Allergies Coded Allergies: gabapentin (Verified Allergy, Unknown, 01/25/19) metoclopramide (Unverified Allergy, Unknown, "CAUSES PT TO LOSE CONTROL OF MUSCLES", 01/25/19) Patient Home Medication List Home Medication List Reviewed: Yes Albuterol Sulfate (Albuterol Sulfate) 2.5 Mg/3 Ml (0.083 %) Vial.neb, 2.5 MG INH Q6H PRN for SHORTNESS OF BREATH, (Reported) Entered as Reported by: PRASANNA RAIN on 02/28/23923 Amlodipine Besylate (Amlodipine Besylate) 2.5 Mg Tablet, 2.5 MG PO DAILY, (Reported) Entered as Reported by: PRASANNA RAIN on 02/28/23923 Aspirin (Aspirin EC) 81 Mg Tablet.dr, 81 MG PO DAILY, (Reported) Entered as Reported by: DC CANSECO on 11/04/21834 Atenolol (Atenolol) 50 Mg Tablet, 50 MG PO BID, (Reported) Entered as Reported by: DC CANSECO on 11/04/21834 Atorvastatin Calcium (Atorvastatin Calcium) 40 Mg Tablet, 40 MG PO DAILY, (Reported) Entered as Reported by: PRASANNA RAIN on 02/28/23923 Buspirone HCl (Buspirone HCl) 30 Mg Tablet, 30 MG PO BID, (Reported) Entered as Reported by: PRASANNA RAIN on 02/28/23923 Cariprazine Hydrochloride (Vraylar) 1.5 Mg Capsule, 1.5 MG PO DAILY, (Reported) Entered as Reported by: PRASANNA RAIN on 02/28/23 0929 Clopidogrel Bisulfate (Clopidogrel) 75 Mg Tablet, 75 MG PO DAILY, (Reported) Entered as Reported by: PRASANNA RAIN on 02/28/23 09 Diphenhydramine HCl (Benadryl Allergy) 25 Mg Tablet, 25 MG PO DAILY PRN for ALLERGIES, (Reported) Entered as Reported by: KEILY JONES on 12/28/21 104 Estradiol (Estradiol Tablet) 1 Mg Tablet, 1 MG PO DAILY, (Reported) Entered as Reported by: MADDY DANIELEL on 05/20/19 1327 Ethosuximide (Ethosuximide) 250 Mg Capsule, 250 MG PO HS, (Reported) Entered as Reported by: MADDY DANIELLE on 04/12/16 0942 Ferrous Sulfate (Ferosul) 325 Mg (65 Mg Iron) Tablet, 325 MG PO DAILY, (Reported) Entered as Reported by: PRASANNA RAIN on 02/28/23 09 Fluoxetine HCl (Fluoxetine HCl) 40 Mg Capsule, 80 MG PO DAILY, (Reported) Entered as Reported by: LILIBETH DOUGLAS on 01/26/19 0349 Fluticasone Propion/Salmeterol (Fluticasone-Salmeterol 500-50) 500 Mcg-50 Mcg/Dose Blst.w.dev, 1 PUFF INH BID, (Reported) Entered as Reported by: PRASANNA RAIN on 02/28/23 0924 Hydroxyzine HCl (Hydroxyzine HCl) 50 Mg Tablet, 50 MG PO Q8H PRN for ANXIETY, (Reported) Entered as Reported by: PRASANNA RAIN on 02/28/23 09 Isosorbide Mononitrate (Isosorbide Mononitrate ER) 60 Mg Tab, 60 MG PO DAILY, (Reported) Entered as Reported by: KEILY JONES on 12/28/21 104 Lidocaine (Lidocaine 5% Patch) 5 % Adh..patch, 1 EACH TP Q12H PRN for Neuropathic pain, (Reported) Entered as Reported by: PRASANNA RAIN on 02/28/23 09 Magnesium Oxide (Magnesium Oxide) 400 Mg (241.3 Mg Magnesium) Tablet, 400 MG PO BID Prescribed by: LEIGH ANGEL on 04/08/232111 Metaxalone (Metaxalone) 800 Mg Tablet, 800 MG PO TID PRN for FLUID RETENTION, (Reported) Entered as Reported by: CARMELO CLAUDIO on 12/30/22 0306 Nitroglycerin (Nitroglycerin) 0.4 Mg Tab.subl, 0.4 MG SL UD PRN for CHEST PAIN, (Reported) Entered as Reported by: KEILY JONES on 12/28/21 1042 Nystatin (Nystatin) 100,000 Unit/Ml Oral.susp, 500,000 UNIT PO QID Prescribed by: LEIGH BARAHONART on 03/09/23 012 Ondansetron (Ondansetron Odt) 4 Mg Tab.rapdis, 4 MG PO Q8H PRN for NAUSEA/VOMITING-1ST LINE, (Reported) Entered as Reported by: PRASANNA RAIN on 02/28/23923 Pantoprazole Sodium (Pantoprazole Sodium) 40 Mg Tablet.dr, 40 MG PO BID, (Re ported) Entered as Reported by: PRASANNA RAIN on 02/28/23923 Potassium Chloride (Potassium Chloride) 20 Meq Tab.er.prt, 20 MEQ PO DAILY, (Reported) Entered as Reported by: PRASANNA RAIN on 02/28/23923 Potassium Chloride (Potassium Chloride) 10 Meq Capsule.er, 20 MEQ PO BID Prescribed by: LEIGH ANGEL on 04/08/232111 Pregabalin (Pregabalin) 200 Mg Capsule, 200 MG PO TID, (Reported) Entered as Reported by: PRASANNA RAIN on 02/28/23923 Ranolazine (Ranolazine ER) 1,000 Mg Tab.er.12h, 1,000 MG PO BID, (Reported) Entered as Reported by: PRASANNA RAIN on 02/28/23923 Sucralfate (Carafate) 1 Gram Tablet, 1 GM PO QID Prescribed by: RAN CANTRELL on 04/11/23 1426 Tiotropium [place] (Tiotropium [place]) 18 Mcg Cap.w.dev, 1 PUFF INH DAILY, (Reported) Entered as Reported by: PRASANNA RAIN on 02/28/23923 Review of Systems Review of Systems Constitutional: No fever EENTM: No Symptoms Reported Respiratory: No Symptoms Reported Cardiovascular: See HPI Gastrointestinal: No Symptoms Reported Genitourinary: No Symptoms Reported Musculoskeletal: no symptoms reported Skin: no symptoms reported Endocrine: No Symptoms Reported Past Jwrbayv-Mhpkor-Cqtctj Hx Patient Social History Tobacco Use?: Yes Tobacco type used: Cigarettes Immunizations Up To Date Tetanus Booster (TDap): Unknown First/Initial COVID19 Vaccinat: unk Second COVID19 Vaccination Suhas: unk Third COVID19 Vaccination Date: unk Seasonal Allergies Seasonal Allergies: Yes Past Medical History Surgery/Hospitalization HX: Angina, COPD, HEAVY [employer]IG[employer] Surgeries: Yes (dental extractions, dxls, bmt, 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, LEFT EAR) Section, Ear Surgery, Gallbladder, Hysterectomy, Orthopedic, 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 Respiratory: Yes (WEARS O2 2L) Asthma, Sleep Apnea, COPD Currently Using CPAP: Yes Currently Using BIPAP: No Cardiac: Yes Atrial Fibrillation, Coronary Artery Disease, Heart Murmur, Hypertension, Irregular Heartbeat Neurological: Yes (MIGRAINE HEADACHES) Headaches /Migraines, Seizure Disorder 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 Disorders: Yes Female 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 Disorders: 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, 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 Sexually Transmitted Disease: No Genitourinary: Yes Kidney Stones Gastrointestinal: Yes (DIVERTICULITIS/GASTRITIS/ULCERS) Colitis, Gastroesophageal Reflux, Diverticulosis, Hemorrhoids, Polyps, Hiatal Hernia, Ulcer Musculoskeletal: Yes (spina bifida) Arthritis, Scoliosis, Chronic Back Pain Endocrine: No HEENT: Yes Chronic Ear Infection Hearing Impairment: Denies, Hard of Hearing Cancer: No Psychosocial: Yes Anxiety, Depression Integumentary: No Blood Disorders: No Adverse Reaction/Blood Tranf: No (HAS HAD BLOOD WITH NO REACTION) Family Medical History No Pertinent Family Hx Physical Exam Vital Signs Vital Signs - First Documented 04/16/23 21:25 Temp 37.0 Pulse 78 Resp 18 B/P (MAP) 132/69 (90) Pulse Ox 95 O2 Delivery Room Air Capillary Refill : Height, Weight, BMI Height: 5'0" Weight: 235lbs. 0oz. [id number]; 51.66 BMI Method:Stated General Appearance: No Apparent Distress, WD/WN HEENT: PERRL/EOMI, Normal ENT Inspection, Pharynx Normal Neck: Full Range of Motion, Normal Inspection, Non Tender, Supple Respiratory: Chest Non Tender, Lungs Clear, Normal Breath Sounds, No Accessory Muscle Use, No Respiratory Distress Cardiovascular: Regular Rate, Rhythm, No Edema, Normal Peripheral Pulses Gastrointestinal: Normal Bowel Sounds, Non Tender, Soft; No Distended, No Guarding Extremity: Normal Capillary Refill, Normal Inspection, Normal Range of Motion, Non Tender, No Calf Tenderness, No Pedal Edema Neurologic/Psychiatric: Alert, No Motor/Sensory Deficits, Normal Mood/Affect Skin: Normal Color, Warm/Dry Progress/Results/Core Measures Results/Orders Lab Results Laboratory Tests Test 04/16/23 21:37 Range/Units White Blood Count 13.1 H 4.3-11.0 10^3/uL Red Blood Count 3.94 3.80-5.11 10^6/uL Hemoglobin 11.8 11.5-16.0 g/dL Hematocrit 36 35-52 % Mean Corpuscular Volume 92 80-99 fL Mean Corpuscular Hemoglobin 30 25-34 pg Mean Corpuscular Hemoglobin Concent 33 32-36 g/dL Red Cell Distribution Width 14.5 10.0-14.5 % Platelet Count 362 130-400 10^3/uL Mean Platelet Volume 9.8 9.0-12.2 fL Immature Granulocyte % (Auto) 1 % Neutrophils (%) (Auto) 66 42-75 % Lymphocytes (%) (Auto) 27 12-44 % Monocytes (%) (Auto) 5 0-12 % Eosinophils (%) (Auto) 1 0-10 % Basophils (%) (Auto) 1 0-10 % Neutrophils # (Auto) 8.7 H 1.8-7.8 10^3/uL Lymphocytes # (Auto) 3.6 1.0-4.0 10^3/uL Monocytes # (Auto) 0.6 0.0-1.0 10^3/uL Eosinophils # (Auto) 0.2 0.0-0.3 10^3/uL Basophils # (Auto) 0.1 0.0-0.1 10^3/uL Immature Granulocyte # (Auto) 0.1 0.0-0.1 10^3/uL Prothrombin Time 12.6 12.2-14.7 SEC INR Comment 0.9 0.8-1.4 Activated Partial Thromboplast Time 25 24-35 SEC Sodium Level 138 135-145 MMOL/L Potassium Level 3.6 3.6-5.0 MMOL/L Chloride Level 98 98-107 MMOL/L Carbon Dioxide Level 30 21-32 MMOL/L Anion Gap 10 5-14 MMOL/L Blood Urea Nitrogen 8 7-18 MG/DL Creatinine 0.79 0.60-1.30 MG/DL Estimat Glomerular Filtration Rate 95 BUN/Creatinine Ratio 10 Glucose Level 107 H 70-105 MG/DL Calcium Level 9.5 8.5-10.1 MG/DL Corrected Calcium 9.3 8.5-10.1 MG/DL Magnesium Level 1.9 1.6-2.4 MG/DL Total Bilirubin 0.3 0.1-1.0 MG/DL Aspartate Amino Transf (AST/SGOT) 20 5-34 U/L Alanine Aminotransferase (ALT/SGPT) 13 0-55 U/L Alkaline Phosphatase 128 40-136 U/L Troponin I < 0.30 <0.30 NG/ML Total Protein 7.3 6.4-8.2 GM/DL Albumin 4.2 3.2-4.5 GM/DL Lipase 21 8-78 U/L My Orders Orders - TONY GOFF MD Cbc And Automated Diff (04/16/23 21:31) Magnesium (04/16/23 21:31) Chest 1 View Ap/Pa Only (04/16/23 21:31) Ekg Tracing (04/16/23 21:31) Comprehensive Metabolic Panel (04/16/23 21:31) Protime With Inr (04/16/23 21:31) Partial Thromboplastin Time (04/16/23 21:31) O2 (04/16/23 21:31) Monitor-Rhythm Ecg Trace Only (04/16/23 21:31) Ed Iv/Invasive Line Start (04/16/23 21:31) Lipase (04/16/23 21:31) Troponin I Fs (04/16/23 21:31) Lidocaine 2% Viscous 15 Ml (Xylocaine Vi (04/16/23 21:45) Famotidine Tablet (Famotidine Tablet) (04/16/23 21:31) Antacid Suspension (Antacid Suspension (04/16/23 21:45) Medications Given in ED Current Medications Medications Dose Ordered Sig/Brissa Route Start Time Stop Time Status Last Admin Dose Admin Al Hydrox/Mg Hydrox/Simethicone 30 ml ONCE ONCE PO 04/16/23 21:45 04/16/23 21:46 DC 04/16/23 21:50 30 ML Lidocaine HCl 15 ml ONCE ONCE PO 04/16/23 21:45 04/16/23 21:46 DC 04/16/23 21:50 15 ML Vital Signs/I&O 04/16/23 04/16/23 21:25 22:30 Temp 37.0 Pulse 78 82 Resp 18 17 B/P (MAP) 132/69 (90) 111/71 Pulse Ox 95 96 O2 Delivery Room Air Room Air Progress Progress Note : Progress Note 42-year-old female with above history coming in due to chest pain. ABCs were intact and vitals were stable on presentation. Physical exam reassuring with no acute abnormalities. I specifically have seen this patient 3-4 times in the past couple months for the same issue. She has been seen by a physician 10 times or more in the past 2 months. She has been seen by emergency medicine p hysicians, sack filler, and general surgeons. She has had innumerable workups for the same issue including recent cardiac catheterization with no intervention and upper GI scope with maybe mild gastritis. She is well-appearing right now. Will give her a GI cocktail and do a typical cardiac workup including EKG, chest x-ray, and cardiac enzymes. Labs were significant for baseline white blood cell count for the patient which is slightly elevated, normal creatinine, negative troponin. Chest x-ray on my interpretation with no obvious pneumothorax or pneumonia. Appears similar to prior. EKG on my interpretation with no acute ischemic changes, also appears similar to prior. Patient had tenderness to palpation on her chest wall which seems musculoskeletal in nature. I will have her continue follow-up with her sack filler as well as the surgeon that did the GI scope for the final results. She is low risk for PE per [place] criteria and I think a PE is very unlikely. Clinically no signs of a DVT as well. I think it is unlikely she has any life- threatening causes of chest pain at this time. She was discharged home in st able condition with strict return precautions. Initial ECG Impression Date: Apr 16, 2023 Initial ECG Impression Time: 21:36 Initial ECG Rate: 74 Initial ECG Rhythm: Normal Sinus Comment Narrow QRS, normal axis, no significant ST changes, appears similar to prior EKG Diagnostic Imaging Diagonstic Imaging: Xray (chest) Comments [facility] [place], [place] NAME: JUVENTINO [facility]AN [facility] REC#: [id number] PT STATUS: REG ER : 1980 PHYSICIAN: TONY GOFF MD ADMIT DATE: 04/16/23/ER FS Draft Date of Exam:04/16/23 CHEST 1 VIEW AP/PA ONLY INDICATION: Chest pain, pressure TECHNIQUE: Single view chest 9:29 PM CORRELATION STUDY: 04/08/2023 FINDINGS: The heart size, mediastinal configuration and pulmonary vascularity are within normal limits. The lungs are clear with no consolidating infiltrate. There is no significant effusion or pneumothorax. IMPRESSION: 1. Negative appearing portable chest. Dictated on workstation # [id number] Dict: 04/16/232146 Trans: 04/16/232147 DO [id number] Interpreted by: TERRELL WOODRUFF DO Electronically signed by: Departure Impression Primary Impression: Atypical chest pain Disposition: HOME, SELF-CARE Condition: Stable Departure-Patient Inst. Decision time for Depature: 22:20 Referrals: MAYKEL CUMMINS APRN (PCP) Primary Care Physician [facility] (Family) Primary Care Physician Patient Instructions: Chest Pain, Adult ED Add. Discharge Instructions: Follow back up with Dr. Gary as well as the surgeon that did the upper GI scope. We recommend stopping smoking. TONY GOFF MD Apr 16, 2023 21:35
[2023-04-16] MEDS ORDERED: LIDOCAINE 2% VISCOUS 15 ML UDC PO ONE (21:45)
[2023-04-16] MEDS ORDERED: ANTACID SUSPENSION 30 ML UDC PO ONE (21:45)
--- NOTE | 2023-04-16 21:48 | Diagnostic Imaging Report ---
INDICATION: Chest pain, pressure TECHNIQUE: Single view chest 9:29 PM CORRELATION STUDY: 04/08/2023 FINDINGS: The heart size, mediastinal configuration and pulmonary vascularity are within normal limits. The lungs are clear with no consolidating infiltrate. There is no significant effusion or pneumothorax. IMPRESSION: 1. Negative appearing portable chest. Dictated by: Dictated on workstation # [id number]
[2023-04-16 21:55] LABS: BASOPHILS # (AUTO) 0.1 10^3/uL (0.0-0.1); BASOPHILS % (AUTO) 1 % (0-10); EOSINOPHILS # (AUTO) 0.2 10^3/uL (0.0-0.3); EOSINOPHILS % (AUTO) 1 % (0-10); HEMATOCRIT 36 % (35-52); HEMOGLOBIN 11.8 g/dL (11.5-16.0); LYMPHOCYTES # (AUTO) 3.6 10^3/uL (1.0-4.0); LYMPHOCYTES % (AUTO) 27 % (12-44); MEAN CORPUSCULAR HEMOGLOBIN 30 pg (25-34); MEAN CORPUSCULAR HGB CONC 33 g/dL (32-36); MEAN CORPUSCULAR VOLUME 92 fL (80-99); MEAN PLATELET VOLUME 9.8 fL (9.0-12.2); MONOCYTES # (AUTO) 0.6 10^3/uL (0.0-1.0); MONOCYTES % (AUTO) 5 % (0-12); NEUTROPHILS # (AUTO) 8.7 10^3/uL (1.8-7.8); NEUTROPHILS % (AUTO) 66 % (42-75); PLATELET COUNT 362 10^3/uL (130-400); WHITE BLOOD COUNT 13.1 10^3/uL (4.3-11.0)
[2023-04-16 22:06] LABS: INR 0.9 (0.8-1.4); PROTHROMBIN TIME PATIENT 12.6 SEC (12.2-14.7)
[2023-04-16 22:09] LABS: POTASSIUM 3.6 MMOL/L (3.6-5.0)
[2023-04-16 22:18] LABS: SODIUM 138 MMOL/L (135-145)
[2023-04-16 22:19] LABS: BUN/CREATININE RATIO 10; CALCIUM 9.5 MG/DL (8.5-10.1); CARBON DIOXIDE 30 MMOL/L (21-32); CHLORIDE 98 MMOL/L (98-107); CREATININE SERUM 0.79 MG/DL (0.60-1.30); GFR ESTIMATED 95; GLUCOSE 107 MG/DL (70-105)
[2023-04-16 22:20] LABS: ALANINE AMINOTRANSFERASE 13 U/L (0-55); ALBUMIN 4.2 GM/DL (3.2-4.5); ALKALINE PHOSPHATASE 128 U/L (40-136); BILIRUBIN,TOTAL 0.3 MG/DL (0.1-1.0); LIPASE 21 U/L (8-78); MAGNESIUM 1.9 MG/DL (1.6-2.4); TOTAL PROTEIN 7.3 GM/DL (6.4-8.2)
[2023-04-16 22:30] VITALS: BP 111/71
== END 2023-04-16 22:30 | disposition home or self-care (01) ==
LOC: EDUNIT# 21:21 → ER FS 21:22
DX: R07.89 Other chest pain (principal); K29.70 Gastritis, unspecified, without bleeding; J44.9 Chronic obstructive pulmonary disease, unspecified; G47.30 Sleep apnea, unspecified; F17.210 Nicotine dependence, cigarettes, uncomplicated; Z99.81 Dependence on supplemental oxygen; Z79.899 Other long term (current) drug therapy
CPT/HCPCS: 36415; 71045; 80053; 83690; 83735; 84484; 85025; 85610; 85730; 93005; 93041